=== PATIENT | female | born 1955 | race Caucasian/White ===

== ENCOUNTER 2023-09-11 16:51 | Emergency (ER) | payer MEDICARE, OTHER, SELFPAY ==
[2023-09-11 17:15] VITALS: BP 106/69; PULSE 136; RESP 16; TEMP 37.8; O2SAT 98
--- NOTE | 2023-09-11 18:02 | ED.URI ---
HPI - URI/Sore Throat General Chief Complaint: Upper Respiratory Infection Stated Complaint: headaches,vomiting,nasal congestion Time Seen by Provider: 09/11/23 18:02 Source: patient Mode of arrival: ambulatory Limitations: no limitations History of Present Illness HPI Narrative: 68-year-old female With history of stomach cancer presents with complaint of cough, nasal congestion, fatigue, body aches, headache, fever for 2 days. denies chest pain or shortness breath. Reports vomited once 2 days ago but not since then. All systems reviewed and negative except as noted above. Related Data Home Medications Medication Instructions Recorded Confirmed escitalopram oxalate 10 mg tablet 10 mg PO DAILY 09/11/23 09/11/23 famotidine 20 mg tablet 20 mg PO BID 09/11/23 09/11/23 mirtazapine 30 mg tablet 30 mg PO HS 09/11/23 09/11/23 potassium chloride 20 mEq 20 meq PO BID 09/11/23 09/11/23 tablet,extended release(part/cryst) (Klor-Con M) Allergies Allergy/AdvReac Type Severity Reaction Status Date / Time adhesive tape Allergy Unknown Other Verified 09/11/23 17:31 Review of Systems Review of Systems: CONSTITUTIONAL: Reports fever, chills, or sweats. EYES: Denies visual changes, redness, or discharge. ENT: reports rhinorrhea, congestion, sore throat. Denies otalgia. CARDIOVASCULAR: Denies chest pain, palpitations, or edema. RESPIRATORY: reports cough. Denies dyspnea. GASTROINTESTINAL: Denies abdominal pain, nausea, vomiting, or diarrhea. GENITOURINARY: Denies dysuria or hematuria. SKIN: Denies rash or itching. MUSCULOSKELETAL: Denies back pain, joint pain, or myalgia. NEUROLOGIC: Denies headache, numbness, or weakness. PSYCHIATRIC: Denies anxiety or depression. All other systems reviewed are negative, except as documented in HPI. [facility] Family History Family History (Updated 04/10/16 @ 23:19 by DOCTOR UNKNOWN) Mother Family history of malignant neoplasm of breast in first degree relative Father Family history of lung disease Social History Social History Alcohol intake: current Comments At time of signature, agree with nursing past medical, surgical, social and family history. There is no relevant family history pertinent to the presenting complaint. Exam Narrative: GENERAL: This is a well-nourished, well-developed patient, patient ill-appearing but in no acute distress. HEAD: normocephalic, atraumatic. EYES: PERRL. Sclera clear/white. Vision is grossly intact. EARS: External ears normal, auditory canals clear and without drainage, TMs normal without perforation. Hearing grossly intact. NOSE: External nose normal with Clear nasal drainage. THROAT: Mucous membranes moist, posterior pharynx clear. NECK: Neck supple, non-tender without lymphadenopathy, masses or thyromegaly. CARDIOVASCULAR: Regular rate and rhythm without murmurs, gallops, or rubs. RESPIRATORY: Clear to auscultation. Breath sounds equal bilaterally. No wheezes, rales, or rhonchi. SKIN: warm, Dry, intact with no suspicious lesions or rash, good texture and turgor. NEURO: awake, alert, and oriented to person, place and time. There were no obvious focal neurologic abnormalities. EXTREMITIES: No joint tenderness, effusion, or edema noted. Course Course Level of Care: Express Care Visit Vital Signs Vital signs: Vital Signs Temperature 37.8 C H 09/11/23 17:15 Pulse Rate 136 H 09/11/23 17:15 Respiratory Rate 16 09/11/23 17:15 Blood Pressure 106/69 09/11/23 17:15 Pulse Oximetry 98 09/11/23 17:15 Oxygen Delivery Room Air 09/11/23 17:15 Temperature 37.8 C H 09/11/23 17:15 Pulse Rate 136 H 09/11/23 17:15 Respiratory Rate 16 09/11/23 17:15 Blood Pressure 106/69 09/11/23 17:15 Pulse Oximetry 98 09/11/23 17:15 Oxygen Delivery Room Air 09/11/23 17:15 Reviewed, HR 92 auscultated MDM - URI/Sore Throat MDM Narrative Medical decision making narrative: At time of signature,
== END 2023-09-11 18:22 | disposition home or self-care (01) ==
PROVIDERS: Emergency Provider Nurse Practitioner Family
DX: U07.1 COVID-19 (principal); F41.9 Anxiety disorder, unspecified; F32.A Depression, unspecified; Z85.43 Personal history of malignant neoplasm of ovary; Z85.028 Personal history of other malignant neoplasm of stomach; Z92.21 Personal history of antineoplastic chemotherapy
CPT/HCPCS: 87426; 87804; 99213; C9803; G0463

== ENCOUNTER 2024-07-19 16:43 | Emergency (ER) | payer MEDICARE, OTHER, SELFPAY ==
[2024-07-19] VITALS (10 sets, daily range): BP systolic 99–117; BP diastolic 55–68; PULSE 92–117; RESP 12–19; TEMP 36.8; O2SAT 93–100
--- NOTE | ~2024-07-19 | CT_ITS ---
EXAMINATION: CTA chest PE protocol DATE: 07/19/2024 18:00 SIGNAL TESTER INDICATION: Elevated d-dimer and shortness of breath TECHNIQUE: Computed tomographic angiography (CTA) of the chest was performed with 100 mL Omnipaque-35 0 intravenous contrast. The dose-length product was 438.27 mGy-cm. Maximum intensity projection 3D-re constructions of the aorta and other arteries were constructed by the technologist on a separate work station. COMPARISON: None. FINDINGS: No filling defects are in the main or proximal pulmonary arteries. The main pulmonary artery is not enlarged. The heart is enlarged, without pericardial effusion. Bibasilar pleural thickening. A pleural-based solid nodule is identified within the right upper lobe measuring 4 mm (axial series, image 22). Within the anterior segment of the left upper lobe is a 6.9 mm solid nodule (axial series, image 60). A smaller solid pleural-based nodule is identified within the left apex measuring 3.8 mm (axial serie s, image 18). The remainder of the lungs are clear. Homogeneous attenuation within the liver. Prostheses within the right breast, consistent with patient's history. No significant degenerative disease within the thoracic spine. No lytic or blastic lesions identified. Right internal jugular central venous port catheter identified with tip superior vena cava IMPRESSION: No pulmonary embolus. No aortic dissection. Multiple pulmonary nodules, for which follow-up as per Fleischner guidelines is recommended. Given the size of the largest nodule, chest CT at 3-6 months. Stable, then follow-up CT at 18-24 nelly hs to confirm stability Reviewed, dictated and finalized at location A. AL TESTER IMPRESSION: No pulmonary embolus. No aortic dissection. Multiple pulmonary nodules, for which follow-up as per Fleischner guidelines is recommended. Given the size of the largest nodule, chest CT at 3-6 months. Stable, then foll ow-up CT at 18-24 months to confirm stability
--- NOTE | 2024-07-19 16:49 | ECG_ITS ---
Test Date: 2024-07-19 16:51:24 Measurements Intervals [place] Rate: 116 P: 56 OR: 184 QRS: 52 QRSD: 88 T: 29 QT: 298 QTc: 415 Interpretive Statements SINUS TACHYCARDIA BORDERLINE T WAVE ABNORMALITY- ANTERIOR LEADS BASELINE ARTIFACT- V4 ABNORMAL ECG No previous ECG available for comparison Electronically Signed On 07-19-2024 18:36:13 AVIATION SAFETY EQUIPMENT TECHNICIAN by Mckay Felder D.O.
--- NOTE | 2024-07-19 17:03 | ED.SOB ---
HPI - SOB/Dyspnea General Chief Complaint: Shortness of Breath/Dyspnea Stated Complaint: cta chest Time Seen by Provider: 07/19/24 16:57 Source: patient Mode of arrival: EMS Limitations: no limitations History of Present Illness HPI Narrative: This is a 69-year-old female that presents to the department to rule out PE. [facility] fracture as well as pelvic fracture. Today at therapy she became hypoxic and tachycardic. She had blood work done which showed an elevated D-dimer, she was sent to the ER for imaging to rule out a PE. Patient denies any chest pain or shortness of breath currently. Related Data Home Medications Medication Instructions Recorded Confirmed famotidine 20 mg tablet 20 mg PO BID 09/11/23 07/18/24 mirtazapine 30 mg tablet 15 mg PO HS 09/11/23 07/18/24 potassium chloride 20 mEq 20 meq PO BID 09/11/23 07/18/24 tablet,extended release(part/cryst) (Klor-Con M) duloxetine 20 mg capsule,delayed 20 mg PO HS 07/16/24 07/18/24 release duloxetine 60 mg capsule,delayed 60 mg PO DAILY 07/16/24 07/18/24 release fluticasone propionate 50 1 spray intranasal DAILY 07/16/24 07/18/24 mcg/actuation nasal spray,suspension gabapentin 600 mg tablet 600 mg PO BID 07/16/24 07/18/24 meloxicam 7.5 mg tablet 7.5 mg PO DAILY 07/16/24 07/18/24 methocarbamol 500 mg tablet 500 mg PO DAILY 07/16/24 07/18/24 olaparib 100 mg tablet (Lynparza) 200 mg PO BID 07/16/24 07/18/24 omeprazole 40 mg capsule,delayed 40 mg PO BID 07/16/24 07/18/24 release ondansetron HCl 8 mg tablet 8 mg PO Q8H PRN nausea/vomiting 07/16/24 07/18/24 Allergies Allergy/AdvReac Type Severity Reaction Status Date / Time adhesive tape Allergy Unknown Other Verified 07/19/24 16:53 celecoxib [From Celebrex] AdvReac Rash Verified 07/19/24 16:53 Review of Systems Review of Systems: CONSTITUTIONAL: Denies fever CARDIOVASCULAR: Denies chest pain, palpitations RESPIRATORY: Denies dyspnea. All systems reviewed & are unremarkable except as noted in HPI and below PMFSH Past Medical History Medical History (Updated 07/19/24 @ 18:42 by Norma Joseph PA-C) Anxiety Breast cancer Chronic anemia Depression GERD (gastroesophageal reflux disease) Irritable bowel syndrome Osteoporosis Ovarian cancer Approximately 2020 with recurrence in 2021 Peripheral neuropathy due to chemotherapy Surgical History Surgical History (Updated 07/17/24 @ 00:49 by Eva Pillai DO) History of left knee replacement (2022) History of right mastectomy History of total abdominal hysterectomy and bilateral salpingo-oophorectomy Hx of cholecystectomy Family History Family History Mother Family history of malignant neoplasm of breast in first degree relative Father Family history of lung disease Daughter Breast cancer Social History Social History (Updated 07/17/24 @ 00:51 by Eva Pillai DO) Social History: She lives with her of 32 years. 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 She has 2 daughters and a son. Her youngest daughter was just diagnosed with breast cancer. She used to smoke up to a pack of cigarettes per day but then would not smoke for up to a week after that. She did this for proximally 30 years but quit smoking in the . She denies any history of heavy alcohol use or illicit substance use. She ambulates with a Rollator. Code status: Full code Surrogate decision maker: Years smoked: 20 Smoking status: Former smoker Alcohol intake: former Substance use: never Substance use type: does not use Do You Feel Safe in your Home?: Yes Lack of Transportation: No Lack of Food: Never True Current Housing: I Have Housing Concerned About Future Housing: No Difficulty Paying Gas/Electric Bills: No Difficulty Paying for Meds: No Currently Unemployed: No Education: High School Diploma/GED Difficulty w/ Childcare or Family Care: No Spiritual care concerns: No Exam Narrative: GENERAL: Well-appearing, well-nourished, and in no acute distress. HEAD: Normocephalic, atraumatic. EYES: EOMI. ENT: Nares clear, no rhinorrhea or epistaxis. Mucous membranes moist. Oropharynx without tonsillar hypertrophy exudate or other lesions. NECK: Supple. No JVD CHEST: Clear to auscultation. No respiratory distress. No wheezes rales or rhonchi HEART: Regular rate and rhythm. No murmur heard. Normal peripheral pulses. EXTREMITIES: No edema. SKIN: Warm, dry, no rash. NEURO: No focal deficits. Alert and oriented x3. PSYCH: Normal mood and affect Course Course Emergency Course: patient and family updated on workup and agree with plan of care Vital Signs Vital signs: Vital Signs Temperature 98.3 F 07/19/24 16:43 Pulse Rate 117 H 07/19/24 16:43 Respiratory Rate 14 07/19/24 16:43 Blood Pressure 99/68 L 07/19/24 16:43 Pulse Oximetry 100 07/19/24 16:43 Oxygen Delivery Nasal Cannula 07/19/24 16:43 Oxygen Flow Rate 2 07/19/24 16:43 Temperature 98.3 F 07/19/24 16:43 Pulse Rate 93 07/19/24 17:30 Respiratory Rate 13 07/19/24 17:30 Blood Pressure 117/67 07/19/24 17:30 Pulse Oximetry 95 07/19/24 17:45 Oxygen Delivery Nasal Cannula 07/19/24 17:45 Oxygen Flow Rate 1 07/19/24 17:45 MDM - SOB/Dyspnea MDM Narrative Medical decision making narrative: Patient presents to the emergency department for an episode of hypoxia today at [facility] during her rehab session. Had blood work there, this showed an elevated D-dimer. She was sent to the ER for a CTA of her chest. She was reporting some lightheadedness, no chest pain or shortness of breath. Patient has been weaned off of her oxygen. Is currently saturating normal on room air. Tachycardic upon arrival, given 500 mL of IV fluids with normalization of heart rate. Blood work reviewed and appeared stable. CTA of the chest without PE or acute cardiopulmonary abnormality. Does show several pulmonary nodules. Patient and family were updated on her workup. Her does report she has not really been out of bed over the last week, wondering if this could be some general deconditioning. Spoke with rehab Dr. Spain about patient and workup. Patient may return to rehab facility. Patient and family agree with this plan Differential Diagnosis Differential diagnosis: Likely congestive heart failure, community acquired pneumonia and pulmonary embolism Lab Data Attestation: I reviewed the patient's lab results. 07/19/24 17:15 Labs: Lab Results 07/19/24 Range/Units 17:15 Creatinine 1.30 H (0.7-1.2) mg/dL Estim Creat Clear Calc Not Reportable Estimated GFR 41 L (59 - ) Imaging Data Radiologist's impression: ITS Impressions Chest CTA 07/19/24 18:00 IMPRESSION: No pulmonary embolus. No aortic dissection. Multiple pulmonary nodules, for which follow-up as per Fleischner guidelines is recommended. Given the size of the largest nodule, chest CT at 3-6 months. Stable, then follow-up CT at 18-24 months to confirm stability ECG Data EKG #1: ECG completion date: 07/19/24 EKG Interpretation: tachycardia, sinus rhythm, no ST changes and normal QT Critical Care Time Critical Care Time Critical Care Time: No Discharge Plan Discharge Clinical Impression: Hypoxia, Pulmonary nodule Patient Disposition: [facility] Condition: Improved Instructions: Pulmonary Nodules (ED), Hypoxia (ED) Additional Instructions: Return to the emergency department if you experience fever, chest pain, shortness of breath, abdominal pain with nausea and vomiting, weakness, numbness, or any other symptoms that are concerning to you Your workup here was reassuring, so blood clots in your lungs. You do have some pulmonary nodules which will need further imaging surveillance in the next 3-6 months Prescriptions: No Action potassium chloride [Klor-Con M20] 20 mEq tablet,ER particles/crystals 20 meq PO BID famotidine 20 mg tablet 20 mg PO BID mirtazapine 30 mg tablet 15 mg PO HS gabapentin 600 mg tablet 600 mg PO BID ondansetron HCl 8 mg tablet 8 mg PO Q8H PRN (Reason: nausea/vomiting) omeprazole 40 mg capsule,delayed release(DR/EC) 40 mg PO BID meloxicam 7.5 mg tablet 7.5 mg PO DAILY Lynparza 100 mg Tablet 200 mg PO BID methocarbamol 500 mg tablet 500 mg PO DAILY fluticasone propionate 50 mcg/actuation spray,suspension 1 spray INTRANASAL DAILY duloxetine 20 mg capsule,delayed release(DR/EC) 20 mg PO HS duloxetine 60 mg capsule,delayed release(DR/EC) 60 mg PO DAILY oxycodone 5 mg capsule 0.5 mg PO Q4H PRN (Reason: pain) Qty: 1 0RF Follow-up/Referrals: PHYSICIAN NOT ON STAFF,NONSTAFF [Non-Staff] -
[2024-07-19 17:16] LABS: Estimated Glomerular Filt Rate 41
[2024-07-19] MEDS: SODIUM CHLORIDE 0.9% IV 500 ML 999 ML IV CONT (17:35)
--- NOTE | 2024-07-19 20:46 | PC.NURSE ---
called report to Honey at [facility], all questions answered. [facility] ems arrives at 2030 for patient and they leave ED @2041.
== END 2024-07-19 20:42 ==
PROVIDERS: Emergency Provider Physician Assistant
DX: R09.02 Hypoxemia (principal); R91.8 Other nonspecific abnormal finding of lung field; D64.9 Anemia, unspecified; K21.9 Gastro-esophageal reflux disease without esophagitis; K58.9 Irritable bowel syndrome, unspecified; M81.0 Age-related osteoporosis without current pathological fracture; F32.A Depression, unspecified; F41.9 Anxiety disorder, unspecified; Z96.652 Presence of left artificial knee joint; Z85.43 Personal history of malignant neoplasm of ovary; Z85.3 Personal history of malignant neoplasm of breast; Z87.891 Personal history of nicotine dependence; Z90.11 Acquired absence of right breast and nipple; Z90.710 Acquired absence of both cervix and uterus; Z90.79 Acquired absence of other genital organ(s); Z90.722 Acquired absence of ovaries, bilateral; Z79.899 Other long term (current) drug therapy
CPT/HCPCS: 71275; 93005; 96360; 99284; J7040; Q9967

== ENCOUNTER 2025-02-11 16:13 | Inpatient (IN) | payer MEDICARE, OTHER, SELFPAY ==
--- NOTE | ~2025-02-11 | US_ITS ---
EXAMINATION: US renal BI DATE: 02/12/2025 09:58 INDICATION: Acute renal insufficiency with ureteral stent. TECHNIQUE: Multiple ultrasound grayscale images of the kidneys were obtained. COMPARISON: CT dated 02/11/2025 FINDINGS: The right kidney measures 10.3 x 5.0 x 5.5 cm. The left kidney measures 8.3 x 5.0 x 4.4 cm. The kidne ys demonstrate normal echogenicity. There is moderate right hydronephrosis. The loop of the right int ernal ureteral stent can be seen in the right renal pelvis with the distal loop seen within the lazaro l bladder. There is no hydronephrosis in the left kidney. No stones identified. IMPRESSION: 1. Moderate right hydronephrosis with right internal ureteral stent in expected position. Reviewed, dictated and finalized at location A. IMPRESSION: 1. Moderate right hydronephrosis with right internal ureteral stent in expecte d position.
--- NOTE | ~2025-02-11 | CT_ITS ---
EXAMINATION: CT abdomen pelvis w con DATE: 02/11/2025 19:00 INDICATION: n/v; abd pain TECHNIQUE: Computed tomography (CT) of the abdomen and pelvis was performed with 100 mL Omnipaque-350 intravenous contrast. Automated exposure control and iterative reconstruction technique were employe d. The dose-length product was 232.09 mGy-cm. COMPARISON: CT pelvis 07/16/2024; CTPA 07/19/2024. FINDINGS: Lower thorax: Partially visualized right breast implant. Liver: Normal. Biliary/Gallbladder: Gallbladder is absent. No bile duct dilation. Pancreas: No mass or duct dilation. Spleen: Normal. Adrenals:No mass. Kidneys: Right ureteral stent, in good position. Moderate right caliectasis and pelviectasis. Normal left kidney. GI tract: Small hiatal hernia. No large bowel dilation. Scattered loops of mildly dilated small bowel throughout the abdomen, no transition point, probably representing ileus. Short segment dilated loop of small bowel in the deep pelvis, with loss of the fat plane and potential connection to the adjace nt distal right ureter, and strand-like connections to the vaginal cuff and urinary bladder. Cecal an d rectal anastomoses. Appendix not confidently visualized. Mesentery/Peritoneum: No ascites or free air. 2.1 x 1.2 cm mesenteric lesion adjacent to the distal S MA and inferior mesenteric vein, may represent a soft tissue lesion with a low-density center. Retroperitoneum: No mass. Pelvis: The bladder is moderately distended, with minimal wall thickening. The distal end of the uret eral stent is in good position. Absent uterus. Soft Tissues: Soft tissues and body wall unremarkable. Bones: No acute osseous finding. IMPRESSION: Moderate right pelviectasis and caliectasis, despite the presence of a ureteral stent, may represent chronic dilation or stent dysfunction with acute hydronephrosis. Potential enteroureteral, enterovesicular, and/or enterovesicular fistulae. Presumed necrotic mesenteric lymph node in the right lower quadrant. Generalized mild dilation of the small bowel, presumably due to ileus. Early/partial obstruction not excluded. Reviewed, dictated and finalized at location K. IMPRESSION: Moderate right pelviectasis and caliectasis, despite the presence of a ureteral stent, may represent chronic dilation or stent dysfunction with acute hydronep hrosis. Potential enteroureteral, enterovesicular, and/or enterovesicular fistulae. Presumed necrotic mesenteric lymph node in the right lower quadrant. Generalized mild dilation of the small bowel, presumably due to ileus. Early/pa rtial obstruction not excluded.
[2025-02-11 16:17] VITALS: BP 110/72; PULSE 112; RESP 16; TEMP 36.8; O2SAT 97
[2025-02-11 18:11] LABS: Basophils Percent Auto 0.1 % (0.2-1.2); Hematocrit 24.3 % (37.0-47.0); Hemoglobin 8.3 g/dL (12.0-15.0); Immature Granulocyte Absolute 0.12 K/mm3 (0.00-0.031); Immature Granulocyte Percent A 0.8 % (0-0.5); Lymphocytes Absolute Auto 0.38 K/mm3 (0.9-3.2); Lymphocytes Percent Auto 2.6 % (18.3-44.2); Mean Corpuscular HGB Conc 34.2 g/dl (32-36); Mean Corpuscular Hemoglobin 36.4 pg (26-34); Mean Corpuscular Volume 106.6 fl (80-100); Mean Platelet Volume 10.8 fl (7.4-10.4); Monocytes Absolute Auto 1.1 K/mm3 (0.1-0.6); Monocytes Percent Auto 7.4 % (2.6-8.5); Neutrophils Absolute Auto 12.8 K/mm3 (1.3-6.7); Neutrophils Percent Auto 89.1 % (45.5-73.1); Platelet Count Result 220 k/mm3 (150-375); Red Blood Count 2.28 M/mm3 (4.2-5.4); Red Cell Distribution Width 21.4 % (11.5-14.5); White Blood Count 14.4 K/mm3 (4.5-10.0)
--- OUTSIDE RECORDS SUMMARY | 2025-02-11 18:15 | XMS_ITS | Encounter Summary ---
Author Organization [facility] Address [address] [place] [address] Care Team Providers Care Auto Wheel Alignment Specialist Name Role Phone Unavailable Primary Care Provider Unavailabl e Reason for Visit * Diagnostic Imaging (Routine) - Closed Specialty Diagnoses / Procedures Referred By Chasity t Referred To Contact Procedures Breast Imaging Screening Outside Reference Patricia Powell NP Phone: tel: fax: Referral ID Status Reason Start Date Expiration Date Visits Re quested Visits Authorized [id number] Closed 02/02/2022 03/04/2023 1 1 Encounter Details Date Type Department Care Team (Late st Contact Info) Description 04/01/2015 Hospital Encounter [facility] [address] [place] [id number] Social History Tobacco Use Types Packs/Day Years Used Date Smoking Tobacco: Former Cigarettes Q uit: 1991 Smokeless Tobacco: Never Alcohol Use Standard Drinks/Week Comments Not Currently 0 (1 standard drink = 0.6 oz pur e alcohol) rarely AUDIT-C Answer Date Recorded Q1: How often do you have a drink containing alcohol? Never 01/06/2025 Q2: How many drinks containi ng alcohol do you have on a typical day when you are drinking? Patient does not drink Q3: How often do you have si x or more drinks on one occasion? Never 01/06/2025 PHQ-2 Answer Date Recorded Patient Health Questionnaire-2 Score 1 01/08/2025 Hunger Vital Sign Answer Date Recorded Within the past 12 months, y ou worried that your food would run out before you got the money to buy more. Never true 02/07/20 21 Within the past 12 months, t he food you bought just didn't last and you didn't have money to get more. Never true 02/06/2021 PRAPARE - Transportation Answer Date Re corded In the past 12 months, has l ack of transportation kept you from medical appointments or from getting medications? No 01/12 In the past 12 months, has l ack of transportation kept you from meetings, work, or from getting things needed for daily living? No 02/06/2021 PHQ-9 Answer Date Recorded Patient Health Questionnaire-9 Score 12 01/08/2025 Personal Safety Answer Date Recorded Have you ever been in or are you currently in a harmful physical or emotional relationship or is someone making you feel afraid or unsafe? Denies 01/06/2025 Education Answer Date Recorded What is the highest level of school you have completed or the highest degree you have received? 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 Never 01/06/2025 11:41 AM Som Powell RN Q2: How many drinks containing alcohol do you have on a typical day when you are drinking? Patient does not drink 01/06/2025 11:41 AM Som Powell RN Q3: How often do you have six or more drinks on one occasion? Never 01/06/2025 11:41 AM Som Powell RN * Over the past 2 weeks, how often have you been bothered by any of the following problems? Question Answer Date of Assessment Author Patient Health Questionnaire-2 Score 1 12/13 12:00 PM Tete Elliott RN * If you checked off any problems on this questionnaire so far, Question Answer Date of Assessment Author How difficult have these problems made it for you to do your work, take care of things at home, or get along with other people? Somewhat difficult 01/08/2025 12:00 PM Tete Elliott RN * Over the past 2 weeks, how often have you been bothered by any of the following problems? Question Answer Date of Assessment Author Little interest or pleasure in doing things Not at all 01/08/2025 12:00 PM Tete Elliott RN Feeling down, depressed, or hopeless Several days 01/08/2025 12:00 PM Tete Elliott RN Trouble falling or staying asleep, or sleeping too much More than half the days 01/08/2025 12:00 PM Tete Elliott RN Feeling tired or having little energy Nearly every day 01/08/2025 12:00 PM Tete Elliott RN Poor appetite or overeating Nearly every day 01/08/2025 12:00 PM Tete Elliott RN Feeling bad about yourself - or that you are a failure or have let yourself or your family down Several days 01/08/2025 12:00 PM Tete Elliott RN Trouble concentrating on things, such as reading the newspaper or watching television Not at all 01/08/2025 12:00 PM Tete Elliott RN Moving or speaking so slowly that other people could have noticed? Or the opposite - being so fidgety or restless that you have been moving around a lot more than usual. More than half the days 01/08/2025 12:00 PM Tete Elliott RN Thoughts that you would be better off or hurting yourself in some way Not at all 01/08/2025 12:00 PM Tete Elliott RN Patient Health Questionnaire-9 Score 12 01/08/2025 12:00 PM CDT Tete Chinchilla RN documented as of this encounter Plan of [...] only and have not been reviewed by [facility] Radiology. There will be no report generated by a [facility] Radiologist. Narrative [facility]_M[facility]MO[facility] - 02/02/2022 3:04 PM CDT EXAMINATION: Images For Reference Purposes Only us Patricia Powell TELEPHONE EXCHANGE OPERATOR IMG MAMMO PROCEDURES Fin al Result [facility] documented in this encounter Visit Diagnoses Not on filedocumented in this encounter Additional Health Concerns Infection Onset Date Last Indicated Resolved Time COVID: Suspected 11/13/2021 11/13/2021 11/13/2021 2:41 PM INSURANCE RISK SURVEYOR documented as of this encounter
--- OUTSIDE RECORDS SUMMARY | 2025-02-11 18:15 | XMS_ITS | Encounter Summary ---
Author Organization [facility] Healthcare Address [address] [place] [address] Care Team Providers Care Turkish Rubber Name Role Phone Unavailable Primary Care Provider Unavailabl e Reason for Visit * Diagnostic Imaging (Routine) - Closed Specialty Diagnoses / Procedures Referred By Chasity t Referred To Contact Procedures Breast Imaging Diagnostic Outside Reference Patricia Powell NP Phone: tel: fax: Referral ID Status Reason Start Date Expiration Date Visits Re quested Visits Authorized [id number] Closed 02/02/2022 03/04/2023 1 1 Encounter Details Date Type Department Care Team (Late st Contact Info) Description 11/11/2016 12:05 AM SEAM RUBBER Hospital Encounter [facility] Radiology [facility] [address] [place] [id number] Social History Tobacco Use Types Packs/Day Years [...] on file Legal Sex Female 4:24 AM SEAM RUBBER Gender Identity Not on file Sexual Orientation Not on file 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 Radiology. There will be no report generated by a [facility] Radiologist. Narrative RAD_MAMMO[facility] - 02/02/2022 3:05 PM CDT EXAMINATION: Images For Reference Purposes Only us Patricia Powell MANUFACTURING RECRUITER IMG MAMMO PROCEDURES Fin al Result [facility] documented in this encounter Visit Diagnoses Not on filedocumented in this encounter Additional Health Concerns Infection Onset Date Last Indicated Resolved Time COVID: Suspected 11/13/2021 11/13/2021 11/13/2021 2:41 PM SEAM RUBBER documented as of this encounter
--- OUTSIDE RECORDS SUMMARY | 2025-02-11 18:15 | XMS_ITS | Encounter Summary ---
Author Organization [facility] Healthcare Address [address] [place] [address] Care Team Providers Care Traffic Line Painter Name Role Phone Mike Douglass MD Primary Care Provider [phone] Reason for Visit * Diagnostic Imaging (Routine) - Closed Specialty Diagnoses / Procedures Referred By Chasity vanegas Referred To Contact Procedures Breast Imaging Screening Outside Reference Patricia Powell NP Phone: tel: fax: Referral ID Status Reason Start Date Expiration Date Visits Re quested Visits Authorized [id number] Closed 02/02/2022 03/04/2023 1 1 Encounter Details Date Type Department Care Team (Late st Contact Info) Description 12/28/2018 Hospital Encounter [facility] Radiology [facility] [address] [place] [id number] Social History Tobacco Use Types Packs/Day [...] on file Legal Sex Female 4:24 AM RIVERBOAT CAPTAIN Gender Identity Not on file Sexual Orientation Not on file 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 There will be no report generated by a [facility] Radiologist. Narrative [facility] - 02/02/2022 3:04 PM CDT EXAMINATION: Images For Reference Purposes Only us Patricia Powell EARLY CHILDHOOD SERVICES COORDINATOR IMG MAMMO PROCEDURES Fin al Result [facility] documented in this encounter Visit Diagnoses Not on filedocumented in this encounter Additional Health Concerns Infection Onset Date Last Indicated Resolved Time COVID: Suspected 11/13/2021 11/13/2021 11/13/2021 2:41 PM RIVERBOAT CAPTAIN documented as of this encounter Care Teams Traffic Line Painter Relationship Specialty Start Date End Date Mike Douglass MD [address] [place] [address] PCP - General Family Medicine 03/21/18 07/02/19 documented as of this encounter
--- OUTSIDE RECORDS SUMMARY | 2025-02-11 18:15 | XMS_ITS | Encounter Summary ---
Author Organization [facility] Healthcare Address [address] [place] [address] Care Team Providers Care Silk Folder Name Role Phone Unavailable Primary Care Provider Unavailabl e Reason for Visit * Diagnostic Imaging (Routine) - Closed Specialty Diagnoses / Procedures Referred By Contsmiley t Referred To Contact Procedures Breast Imaging US Outside Reference Patricia oPwell NP Phone: tel: fax: Referral ID Status Reason Start Date Expiration Date Visits Re quested Visits Authorized [id number] Closed 02/02/2022 03/04/2023 1 1 Encounter Details Date Type Department Care Team (Late st Contact Info) Description 11/11/2016 Hospital Encounter [facility] Radiology [facility] [address] [place] [phone] Social History Tobacco Use Types Packs/Day Years [...] on file Legal Sex Female 4:24 AM DECORATOR HAND Gender Identity Not on file Sexual Orientation [...] US OUTSIDE REFERENCE Routine 11/11/2016 12:00 AM DECORATOR HAND documented in this encounter Results * Breast Imaging US Outside Reference (11/11/2016 12:00 AM DECORATOR HAND) Impressions [facility] - 02/02/2022 3:03 PM CDT These images are for Reference purposes only and have not been reviewed by [facility] Radiology. There will be no report generated by a [facility] Radiologist. Narrative [facility]MO[facility] - 02/02/2022 3:03 PM CDT EXAMINATION: Images For Reference Purposes Only us Patricia Powell REPRESENTATIVE PHLEBOTOMY SERVICES IMG MAMMO PROCEDURES Fin al Result [facility] documented in this encounter Visit Diagnoses Not on filedocumented in this encounter Additional Health Concerns Infection Onset Date Last Indicated Resolved Time COVID: Suspected 11/13/2021 11/13/2021 11/13/2021 2:41 PM DECORATOR HAND documented as of this encounter
--- OUTSIDE RECORDS SUMMARY | 2025-02-11 18:15 | XMS_ITS | Encounter Summary ---
Author Organization [facility] Healthcare Address [address] [place] [address] Care Team Providers Care Airplane Dispatcher Name Role Phone Unavailable Primary Care Provider Unavailabl e Reason for Visit * Diagnostic Imaging (Routine) - Closed Specialty Diagnoses / Procedures Referred By Chasity t Referred To Contact Procedures Breast Imaging Screening Outside Reference Patricia Powell NP Phone: tel: fax: Referral ID Status Reason Start Date Expiration Date Visits Re quested Visits Authorized [id number] Closed 02/02/2022 03/04/2023 1 1 Encounter Details Date Type Department Care Team (Late st Contact Info) Description 11/05/2016 Hospital Encounter [facility] Radiology [facility] [address] [place] [phone] Social History Tobacco Use Types Packs/Day Years [...] file Legal Sex Female 4:24 AM INSURANCE CASE MANAGER Gender Identity Not on file Sexual Orientation Not on file 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 Not on file Not on file documented as of this encounter Functional Status * Audit-C Score Answer Date of Assessment Author 0 01/06/2025 11:41 AM Smo Powell RN * Question Answer Date of [...] Not at all 01/08/2025 12:00 PM CDT Bizub, Tete, RN Patient Health Questionnaire-9 Score 12 01/08/2025 12:00 PM CDT Tete Chinchilla RN documented as of this encounter Plan of Treatment Not on file documented as of this encounter Procedures Procedure Name Priority Date/Time Associated Diagnosis Comments BREAST IMAGING MG SCREENING OUTSIDE REFERENCE Routine 11/05/2016 12:00 AM INSURANCE CASE MANAGER documented in this encounter Results * Breast Imaging Screening Outside Reference (11/05/2016 12:00 AM INSURANCE CASE MANAGER) Impressions [facility] - 02/02/2022 3:04 PM CDT These images are for Reference purposes only and have not been reviewed by [facility] Radiology. There will be no report generated by a [facility] Radiologist. Narrative [facility] - 02/02/2022 3:04 PM CDT EXAMINATION: Images For Reference Purposes Only us Patricia Powell AUTOMATIC PRINT DEVELOPER IMG MAMMO PROCEDURES Fin al Result [facility] documented in this encounter Visit Diagnoses Not on filedocumented in this encounter Additional Health Concerns Infection Onset Date Last Indicated Resolved Time COVID: Suspected 11/13/2021 11/13/2021 11/13/2021 2:41 PM INSURANCE CASE MANAGER documented as of this encounter
--- OUTSIDE RECORDS SUMMARY | 2025-02-11 18:16 | XMS_ITS | Encounter Summary ---
Author Organization [facility] Healthcare Address [address] [place] [address] Care Team Providers Care Forensic Locksmith Name Role Phone Laurita German Primary Care Provider [phone] Unknown, Notinfile Unavailable Unavailable Suhail Marie MD Unavailable [phone] Robin Pimentel MD Unavailable [phone] Tsering Hoff Primary Care Provider [phone] Ceci Garcia PROFESSIONAL WRESTLER Primary Care Provide r Encounter Details Date Type Department Care Team (Late st Contact Info) Description 06/10/2020 Telephone [facility] Radiology [address] [address] Joselin Garza RN Social History Tobacco Use Types Packs/Day Years Used Date Smoking Tobacco: Former Cigarettes Q uit: 1991 Smokeless Tobacco: Never Alcohol Use Standard Drinks/Week Comments Not Currently 0 (1 standard drink = 0.6 oz pur e alcohol) rarely Education Answer Date Recorded What is the highest level of school you have completed or the highest degree you have received? 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 Not on file Not on file documented as of this encounter Plan of Treatment Not on file documented as of this encounter Visit Diagnoses Not on filedocumented in this encounter Additional Health Concerns Infection Onset Date Last Indicated Resolved Time COVID: Suspected 11/13/2021 11/13/2021 11/13/2021 2:41 PM SUPERVISOR SHEARING documented as of this encounter Care Teams Forensic Locksmith Relationship Specialty Start Date End Date Laurita German PA PCP - General 04/18/20 04/19/24 [place] [address] [id number] PCP - General Physician Slip Maker 04/20/24 01/04/25 [place] [address] [employer] [address] [id number] PCP - General Nurse Practitioner 01/05/25 Unknown, Notinfile Referring Physician 10/17/20 07/27/23 Suhail Marie MD [address] [place] [address] Internal Medicine 07/28/23 Robin Pimentel MD [address] [place] [address] Internal Medicine 07/28/23 documented as of this encounter
--- OUTSIDE RECORDS SUMMARY | 2025-02-11 18:16 | XMS_ITS | Encounter Summary ---
Author Organization [facility] Address [address] [place] [address] Phone Care Team Providers Care Bench Chemist Name Role Phone Laurita German PAC Primary Care Provider [phone] Encounter Details Date Type Department Care Team (Late st Contact Info) Description 04/17/2020 Telephone [facility] [address] [place] [address] Anthony Jacobson MD [address] [place] [phone] Social History Tobacco Use Types Packs/Day Years Used Date Smoking Tobacco: Never Assessed Comments Unknown Sex and Gender Information Value Date Recorded Sex Assigned at Not on file Legal Sex Female 8:17 AM CDT Gender Identity Not on file Sexual Orientation Not on file documented as of this encounter Miscellaneous Notes * Telephone Encounter - Elisabeth Mccarthy - 04/17/2020 3:41 PM CDT Patient had no showed her appointment and when I called she thought her appointment was cancelled because she is seeing another doctor at [facility]. documented in this encounter Plan of Treatment Not on file documented as of this encounter Visit Diagnoses Not on filedocumented in this encounter Care Teams Bench Chemist Relationship Specialty Start Date End Date Laurita German, PAC PCP - General Physician Groundhand 04/03/20 documented as of this encounter
--- OUTSIDE RECORDS SUMMARY | 2025-02-11 18:16 | XMS_ITS | Referral Summary ---
Author Organization [facility] Address [address] [place] [address] Care Team Providers Care Flight Engineer Instructor Name Role Phone Suhail Marie MD Unavailable [phone] Robin Pimentel MD Unavailable [phone] Ceci Garcia NP Primary Care Provide r Encounters Date Type Department Care Team Description 02/08/2025 7:20 PM CDT Lab [facility] ([facility] [address] [place] [address] Cancer of peritoneum (HCC); Malignant neoplasm of ovary, unspecified laterality (HCC) 02/08/2025 Orders Only [facility] Obstetrics and Gynecology [address] [facility] 13th [place] [address] Wendy Pelaez, DEMARCO Cancer of peritoneum (HCC) (Primary Dx) 02/08/2025 Orders Only [facility] Obstetrics and Gynecology [address] [facility] 13th [place] [address] Wendy Pelaez, DEMARCO Cancer of peritoneum (HCC) (Primary Dx) 02/08/2025 Orders Only [facility] [address] [place] [address] Zenaida Krueger RN 02/08/2025 Orders Only [facility] Obstetrics and Gynecology [address] [facility] 13th [place] [phone] Wendy Pelaez RN Cancer of peritoneum (HCC) (Primary Dx); BRCA1 positive; Abnormal CT scan 02/08/2025 Orders Only [facility] Gynecologic [facility] [address] [place] [address] Zenaida Krueger RN 02/08/2025 3:15 PM CDT Office Visit [facility] Obstetrics and Gynecology [address] [place] [address] Advanced [facility] 13th [place] [address] Belem Menchaca MD Cancer of peritoneum (HCC) 02/02/2025 5:40 PM CDT Lab [facility] [address] [place] [phone] Peritoneal carcinoma (HCC) 01/16/2025 Telephone [facility] [address] [place] [address] 01/09/2025 Orders Only [facility] Obstetrics and Gynecology [address] [place] [address] Advanced Medicine 13th [place] [address] Wendy Pelaez RN Peritoneal carcinoma (HCC) (Primary Dx) 01/08/2025 12:43 PM CDT - 01/08/2025 11:59 PM CDT Hospital Encounter [facility] [address] [place] [address] Exposure to blood-borne pathogen Discharge Disposition: Discharge to home or self care 01/08/2025 Orders Only [facility] Health [address] [place] [address] Room 3420 (Third Floor) [place] [address] Cipriano Giron MD 01/08/2025 Orders Only [facility] [address] [place] [address] Room 3420 (Third Floor) [place] [address] Cipriano Giron MD Exposure to blood-borne pathogen (Primary Dx) 01/05/2025 4:42 PM CDT - 01/08/2025 12:30 PM CDT Hospital Encounter [address] [address] Anthony Clay MD Mendelsohn, Marc, MD McCourt, Carolyn Kay, MD Peritoneal carcinoma (HCC) (Primary Dx); Bilious vomiting with nausea; Hydronephrosis of right kidney; Cancer of peritoneum (HCC) Discharge Disposition: Discharge to home or self care 01/06/2025 1:11 PM CDT Anesthesia Event [facility] Operating Room [address] [place] [phone] Coy Cespedes MD 01/06/2025 1:55 PM CDT - 01/06/2025 3:05 PM CDT Surgery [facility] Operating Room [address] [place] [address] Breanna Ac MD CYSTOSCOPY RETROGRADE PYELOGRAM - INSERTION URETERAL STENT 01/05/2025 Telephone [facility] [address] [place] [address] Jeanie Schmitt, MICKEY 01/01/2025 4:45 PM CDT Lab [facility] ([facility]) [address] [place] [id number] Cancer of peritoneum (HCC); Malignant neoplasm of ovary, unspecified laterality (HCC) 01/01/2025 Orders Only [facility] Obstetrics and Gynecology [address] [facility] Advanced [facility] 13th [place] [address] Wendy Pelaez RN Cancer of peritoneum (HCC) 12/05/2024 12:20 PM CDT Lab [facility] [address] [place] [phone] Cancer of peritoneum (HCC); Malignant neoplasm of ovary, unspecified laterality (HCC) 11/30/2024 Telephone [facility] [address] [place] [phone] from Last 3 Months Allergies Active Allergy Reactions Criticality Noted Date Comments Adhesive Rash Medium 05/31/2019 Adhesive Tape-Silicones Rash,Blisters High Medications fluticasone propionate (FLONASE) 50 mcg/actuation nasal spray Administer 1 spray into each nostril as needed for rhinitis 01/30/20 20 Active cyanocobalamin , vitamin B-12, (VITAMIN B-12 ORAL)Indicatio ns:vitamin deficiency Take 6,000 mcg by mouth daily. pt taking 2 3000 Indications: vitamin deficiency 07/25/20 20 Active pyridoxine (VITAMIN B-6) 250 mg tablet Take by mouth Ac tive ferrous sulfate 325 mg (65 mg of elemental iron) tablet Take 1 tablet (325 mg total) by mouth daily with breakfast Active omeprazole (PriLOSEC) 40 mg capsule TAKE 1 CAPSULE TWICE A DAY AFTER BREAKFAST AND DINNER 180 capsule 3 07/23/20 22 Active risedronate (ACTONEL) 35 mg tablet PLEASE SEE ATTACHED FOR DETAILED DIRECTIONS 11/18/19 23 Active lidocaine-pril ocaine creamIndicatio ns:Cancer of peritoneum (HCC) Apply topically as needed for pain Apply 1 hour prior to IV access and cover. 30 g 1 04/07/20 23 Active famotidine (PEPCID) 20 mg tablet Take 1 tablet (20 mg total) by mouth 2 (two) times a day 07/21/20 23 Active triamcinolone (KENALOG) 0.1 % cream Apply topically 2 (two) times a day 07/21/20 23 Active gabapentin (NEURONTIN) 600 mg tablet Take 1 tablet (600 mg total) by mouth 2 (two) times a day 07/21/[address] (NexIUM) 40 mg capsule TAKE 1 CAPSULE BY MOUTH EVERY DAY IN THE MORNING BEFORE BREAKFAST 06/26/20 24 Active meloxicam (MOBIC) 7.5 mg tablet Take 1 tablet (7.5 mg total) by mouth daily 07/18/20 24 Active FLUoxetine (PROzac) 40 mg capsule 08/29/20 24 Active ondansetron (ZOFRAN) 8 mg tabletIndicati ons:Cancer of peritoneum (HCC) TAKE 1 TABLET BY MOUTH EVERY 8 HOURS NEEDED FOR NAUSEA OR VOMITING. 30 tablet 3 11/25/19 25 Active olaparib (Lynparza) 100 mg tabletIndicati ons:Cancer of peritoneum (HCC) Take 2 tablets (200 mg) by mouth 2 (two) times a day. 120 tablet 11 01/02/20 25 Active prochlorperazi ne (Compazine) 10 mg tabletIndicati ons:Cancer of peritoneum (HCC) Take 1 tablet (10 mg total) by mouth every 6 (six) hours as needed for nausea or vomiting 30 tablet 3 01/09/20 25 Active OLANZapine (ZyPREXA) 2.5 mg tablet Take 1 tablet (2.5 mg total) by mouth nightly 30 tablet 3 01/09/20 25 025 Active Klor-Con M20 20 mEq CR tabletIndicati ons:Hypokalemi a TAKE 1 TABLET BY MOUTH 2 TIMES A DAY. 180 tablet 01/30/20 25 Active loratadine (CLARITIN) 10 mg tablet Take 1 tablet (10 mg total) by mouth daily as needed 01/13/20 25 Active nitroglycerin (NITROSTAT) 0.[address] 0.4 mg under the tongue every 5 (five) minutes as needed 05/17/20 19 020 Discontinued(Di scontinued by another clinician) Klor-Con M20 20 mEq CR tabletIndicati ons:Hypokalemi a TAKE 1 TABLET BY MOUTH 2 TIMES A DAY. 180 tablet 11/02/19 25 025 Discontinued cefdinir (OMNICEF) 300 mg capsuleIndicat ions:Urinary Tract/Genitour inary Infection Take 1 capsule (300 mg total) by mouth 2 (two) times a day for 11 doses 11 capsule 01/09/20 25 025 Active Problems Problem Noted Date Diagnosed Date Hydronephrosis of right kidney 01/05/2025 Moderate episode of recurrent major depressive d isorder 09/19/2024 Sick sinus syndrome 09/19/2024 Anxiety disorder, unspecified 08/01/2024 Drug-induced polyneuropathy 08/01/2024 Malignant neoplasm of unspecified ovary 08/01/20 24 S/P total knee replacement, left 12/22/2022 Overview (03/18/2023): Last Assessment & Plan: Recommendation at this time is to continue with the progressive range of motion and strengthening. We'll see her back in 3 months for repeat evaluation. Sooner if she's having issues. Primary osteoarthritis of fi rst carpometacarpal joint of left hand 11/23/2022 Scapholunate ligament injury with no instability, initial encounter 11/23/2022 Overview (12/16/2022): Last Assessment & Plan: Offered steroid injections, and the patient declined this today. Continue with physical therapy as scheduled. Primary osteoarthritis of left knee 05/06/2022 Overview (09/24/2022): Last Assessment & Plan: We discussed the risks, benefits and alternatives. The only thing proven to slow the progression of osteoarthritis is weight loss. Every pound lost relieves 4 to 6 pounds of stress across the knee. We discussed unloading braces. Formal physical therapy to help with flexibility, mobility and strength. We discussed TENS units. Nonsteroidal anti-inflammatories as well as Tylenol and pain medication and their side effects. We discussed steroid versus Visco supplement injection. We discussed eventual total knee arthroplasty. Begin meloxicam Steroid injected today Preapproval for viscosupplementation Last Assessment & Plan: We discussed the risks, benefits and alternatives. The only thing proven to slow the progression of osteoarthritis is weight loss. Every pound lost relieves 4 to 6 pounds of stress across the knee. We discussed unloading braces. Formal physical therapy to help with flexibility, mobility and strength. We discussed TENS units. Nonsteroidal anti-inflammatories as well as Tylenol and pain medication and their side effects. We discussed steroid versus Visco supplement injection. We discussed eventual total knee arthroplasty. 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 06/26/2020 Cancer of peritoneum 04/18/2020 Cancer Staging:Pathologic stage from 04/29/2020:FIGO Stage IIIC(pT3c, pN1b, cM0) - Signed by Belem Menchaca MD on 05/13/2020 Pure hypercholesterolemia 06/27/2019 Chronic left-sided low back pain with left-sided sciatica 05/01/2019 Overview (02/06/2021): Last Assessment & Plan: Will try gabapentin Irritable bowel syndrome 12/21/2012 Gastroesophageal reflux disease 07/18/2012 Depression Hiatal hernia Resolved Problems Problem Noted Date Diagnosed Date Resolved Date Peritoneal carcinoma 01/06/2025 025 Severe malnutrition 11/13/2021 03/19/20 22 Right shoulder pain 02/05/2021 03/19/20 22 Shingles 10/17/2020 12/19/2020 Abscess 05/27/2020 05/27/2020 Peritonitis 05/27/2020 07/18/2020 Assessment & Plan (06/26/2020 9:24 AM CDT): - Stop Ertapenem 1000mg IV q24hrs as pt has completed 4+ weeks of IV therapy for intraabdominal infection, including 1 week after drain removal; Cx + mixed aerobic/anaerobic, Streptococcus agalactiae, and Bacteriodes faecis. - Pt's drain removed on 06/12/20 as IR imaging showed resolution of fluid collection. - Discussed with patient the rational for treatment, culture results, risk of recurrent infection, signs/symptoms of recurrent infection, and to contact ID clinic with any questions or concerns. - Given patients extensive scheduled follow-up appointments and imaging with GynOnc, pt does not need to follow-up with ID again unless circumstances change. Pt and aware that ID always here as a resource if pt has additional need for ID care. Assessment & Plan (06/11/2020 10:01 AM CDT): - Continue Ertapenem 1g IV q 24 hours to complete a minimum of 4 weeks of IV therapy (06/15/20) for intra-abdominal sepsis/small bowel anastomosis dehiscence, s/p IR drain placement. Will continue abx until 1 week after last drain is removed. - Continue regular lab monitoring while on IV abx. - Keep follow-up appointments with IR and AUXILIARY EQUIPMENT OPERATOR as directed. - Discussed with patient the rational for treatment, culture results, risk of recurrent infection, signs/symptoms of recurrent infection, and to contact ID clinic with any questions or concerns. Assessment & Plan (05/27/2020 10:19 AM CDT): 65 y.o. female with history of metastatic ovarian cancer Patient underwent an ex lap, bilateral salpingo-oophorectomy, small bowel resection, rectosigmoid resection with reanastamosis, para-aortic lymphadenectomy and optimal debulking on 04/29/2020.This was complicated by dehiscence of small bowel anastomosis and now with worsening peritonitis. Intra-abdominal drains placed on 05/19/2020. ID consulted for antibiotic recommendations. Source of peritonitis likely is secondary to leaking of enteric content from her small bowel anastomosis. She is currently on ertapenem to cover enteric gram- negative organisms and anaerobes. C.Diff/VRE (05/17) negative Bcx (05/18) NG Abdominal culture (05/19) Mixed organisms, Streop Agalactiae (group B), bacteroides C.Diff (05/25) negative Patient states she has very recently started on clears and it is causing significant nausea. Reports all she has had is a popsicle. She continues to have multiple episodes of diarrhea a day. Loose stools started prior to the antibiotics and two C-Diff tests has come back negative. Plan: -Please continue Ertapenem 1g Q24H. -Anticipated end date on 06/15/2020 -Please obtain at least a weekly CBC with Diff and CMP while on the IV antibiotics. Last LFTs on 05/23. -Thank you for allowing us to participate in the care of this patient. For questions or concerns, please do not hesitate to call. ID will continue to peripherally follow. Inadequate oral intake 05/17/202003/19 Nausea & vomiting 05/17/2020 07/18/2020 Recurrent major depressive d isorder, in full remission 04/18/2020 04/18/2020 Overview (04/18/2020): Last Assessment & Plan: Doing well on lexapro Pelvic mass in female 04/18/20202019 Overview (04/18/2020): Added automatically from request for surgery [id number] Heart burn 07/03/2019 04/18/2020 Overview (07/03/2019): Added automatically from request for surgery [id number] Malignant neoplasm of overla pping sites of right female breast 05/16/2019 04/18/2020 Former smoker 07/18/2012 04/18/2020 Overview (12/24/2017): Description: 03/19/14 Hyperlipidemia 07/18/2020 Immunizations Immunization Administration Dates Next Due Influenza, Quadrivalent, Hig h Dose, Preservative Free, Intrr 07/21/2023 Influenza, Quadrivalent, Split, Intramuscular Influenza, Trivalent, High D ose, Split, Preservative Free, Intramuscular 04/20/2024 Influenza, Trivalent, Preservative Free, Intramu scular 05/19/2016 Influenza, Unspecified 04/20/2024,05/25/2022 Pfizer SARS-CoV-2 Monovalent Vaccination (12+ Yrs) JULIAN-READY TO USE 01/05/2022 Pfizer Sars-Cov-2 Bivalent Vaccination (12+ YRS) 09/15/2022 Pneumococcal Conjugate Pcv20 04/11/2022 Tdap 04/15/2021 ZOSTER LIVE 06/11/2019,02/27/2019 ZOSTER Recombinant 06/15/2022,04/11/2022 Social History Tobacco Use Types Packs/Day Years Used Date Smoking Tobacco: Former Cigarettes Q uit: 1991 Smokeless Tobacco: Never Tobacco Cessation:Counseling Given: Not Answered Alcohol Use Standard Drinks/Week Comments Not Currently [...] on file 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 Gender Identity Not on file Sexual Orientation Not on file 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 Not on file Not on file Not on file Last Filed Vital Signs Vital Sign Reading Time Taken Comments Blood Pressure 120/76 02/08/2025 3:04 PM CDT Pulse 92 02/08/2025 3:04 PM CDT Temperature 37 C (98.6 F) 02/08/2025 3:04 PM CDT Respiratory Rate 24 02/08/2025 3:04 PM CDT Oxygen Saturation 97% 02/08/2025 3:04 PM CDT Inhaled Oxygen Concentration - - Weight 66.1 kg (145 lb 12.8 oz) 02/08/2025 3:04 PM CDT Height 170.2 cm (5' 7) 01/06/2025 4:30 AM CDT Body Mass Index 22.84 01/06/2025 4:30 AM CDT Plan of Treatment Not on file Medical Devices Implanted Type Area Psychiatric Specialist Device Identifier Shelf Expiration Date Model / Serial / Lot [employer] Stent Ureteral Set Double Pigtail Radiopaque Tip Universa [id number] Hydrophilic Coated [id number] - [id number] Implanted:Qty: 1 on 01/06/2025 by Breanna Ac MD at [facility] Stent Right: Ureter [employer] 10/17/2027 [id number] / / [id number] [employer] [id number] Xcela 8fr 1.6mm 1 Lumen Low Profile Power Injectable Fill Suture - [id number] Implanted:Qty: 1 on 06/05/2020 at [facility] [employer] 02/17/2025 [id number] / [id number] Procedures Procedure Name Priority Date/Time Associated Diagnosis Comments EGFR STAT 02/08/2025 4:43 PM CDT Cancer of peritoneum (HCC) Malignant neoplasm of ovary, unspecified laterality (HCC) DIFFERENTIAL AUTO STAT 02/08/2025 4:4 3 PM CDT Cancer of peritoneum (HCC) Malignant neoplasm of ovary, unspecified laterality (HCC) CBC WITH AUTO DIFFERENTIAL STAT 02/08/2025 4:43 PM CDT Cancer of peritoneum (HCC) Malignant neoplasm of ovary, unspecified laterality (HCC) COMPREHENSIVE METABOLIC PANEL STAT 02/08/2025 4:43 PM CDT Cancer of peritoneum (HCC) Malignant neoplasm of ovary, unspecified laterality (HCC) EGFR Routine 02/02/2025 3:03 PM CDT Peritoneal carcinoma (HCC) DIFFERENTIAL AUTO Routine 02/02/2025 3:0 3 PM CDT Peritoneal carcinoma (HCC) CA 125 Routine 02/02/2025 3:03 PM CDT Peritoneal carcinoma (HCC) CBC WITH AUTO DIFFERENTIAL Routine 02/02/2025 3:03 PM CDT Peritoneal carcinoma (HCC) COMPREHENSIVE METABOLIC PANEL Routine 02/02/2025 3:03 PM CDT Peritoneal carcinoma (HCC) MAGNESIUM Routine 02/02/2025 3:03 PM CDT Peritoneal carcinoma (HCC) HIV 1/2 ANTIBODY PLUS P24 ANTIGEN STAT 01/08/2025 12:43 PM CDT HEPATITIS C ANTIBODY STAT 01/08/2025 12:43 PM CDT HEPATITIS B SURFACE ANTIGEN STAT 01/08/2025 12:43 PM CDT EGFR Routine 01/07/2025 8:30 PM CDT CBC WITHOUT DIFFERENTIAL Routine 01/07/2025 8:30 PM CDT BASIC METABOLIC PANEL Routine 01/07/2025 8:30 PM CDT MAGNESIUM Routine 01/07/2025 8:30 PM CDT PHOSPHORUS Routine 01/07/2025 8:30 PM CDT EGFR Routine 01/06/2025 8:04 PM CDT CALCIUM, IONIZED Timed 01/06/2025 8:04 PM CDT CBC WITHOUT DIFFERENTIAL Routine 01/06/2025 8:04 PM CDT BASIC METABOLIC PANEL Routine 01/06/2025 8:04 PM CDT MAGNESIUM Routine 01/06/2025 8:04 PM CDT PHOSPHORUS Routine 01/06/2025 8:04 PM CDT POC BLOOD GAS AND CHEMISTRIES, ARTERIAL Routine 01/06/2025 2:18 PM CDT FL FLUOROSCOPY < 1 HOUR IP Routine 01/06/2025 1:52 PM CDT AL AN PROCEDURE PLACEHOLDER Routine 01/06/2025 1:47 PM CDT AL AN PROCEDURE PLACEHOLDER Routine 01/06/2025 1:45 PM CDT AL AN ELECTIVE ENDOTRACHEAL AIRWAY Routine 01/06/2025 1:45 PM CDT TRANSFUSE RED BLOOD CELLS Timed 01/06/2025 1:36 PM CDT CYSTOSCOPY RETROGRADE PYELOGRAM - INSERTION URETERAL STENT 01/06/2025 1:12 PM CDT Hydronephrosis of right kidney PREPARE RBC STAT 01/06/2025 12:00 PM CDT URINALYSIS, MICROSCOPIC ONLY Routine 01/06/2025 10:55 AM CDT URINALYSIS AND REFLEX TO MICROSCOPIC AND CULTURE Routine 01/06/2025 10:55 AM CDT URINE CULTURE Routine 01/06/2025 10:46 AM CDT TYPE AND SCREEN Timed 01/06/2025 6:06 AM CDT PREPARE RBC Timed 01/06/2025 5:50 AM CDT EGFR Timed 01/06/2025 4:47 AM CDT DIFFERENTIAL AUTO Timed 01/06/2025 4:4 7 AM CDT CA 125 Timed 01/06/2025 4:47 AM CDT APTT Timed 01/06/2025 4:47 AM CDT PROTIME-INR Timed 01/06/2025 4:47 AM CDT CBC WITH AUTO DIFFERENTIAL Timed 01/06/2025 4:47 AM CDT PHOSPHORUS Timed 01/06/2025 4:47 AM CDT MAGNESIUM Timed 01/06/2025 4:47 AM CDT COMPREHENSIVE METABOLIC PANEL Timed 01/06/2025 4:[address] ABDOMEN PELVIS W CONTRAST ED 01/05/2025 8:56 PM CDT TROPONIN I HIGH-SENSITIVITY 2-HOUR Timed 01/05/2025 8:06 PM CDT LIPASE STAT 01/05/2025 5:49 PM CDT EGFR STAT 01/05/2025 5:49 PM CDT DIFFERENTIAL AUTO STAT 01/05/2025 5:4 9 PM CDT TROPONIN I HIGH-SENSITIVITY SERIES (BASELINE, 2HR, 4HR, 6HR) STAT 01/05/2025 5:49 PM CDT COMPREHENSIVE METABOLIC PANEL STAT 01/05/2025 5:49 PM CDT CBC WITH AUTO DIFFERENTIAL STAT 01/05/2025 5:49 PM CDT XR CHEST PA LATERAL 2 VIEWS ED 01/05/2025 1:20 PM CDT ECG 12-LEAD STAT 01/05/2025 1:08 PM CDT EGFR STAT 01/01/2025 1:57 PM CDT Cancer of peritoneum (HCC) Malignant neoplasm of ovary, unspecified laterality (HCC) DIFFERENTIAL AUTO STAT 01/01/2025 1:5 7 PM CDT Cancer of peritoneum (HCC) Malignant neoplasm of ovary, unspecified laterality (HCC) CBC WITH AUTO DIFFERENTIAL STAT 01/01/2025 1:57 PM CDT Cancer of peritoneum (HCC) Malignant neoplasm of ovary, unspecified laterality (HCC) COMPREHENSIVE METABOLIC PANEL STAT 01/01/2025 1:57 PM CDT Cancer of peritoneum (HCC) Malignant neoplasm of ovary, unspecified laterality (HCC) EGFR STAT 12/05/2024 11:21 AM CDT Cancer of peritoneum (HCC) Malignant neoplasm of ovary, unspecified laterality (HCC) DIFFERENTIAL AUTO STAT 12/05/2024 11: 21 AM CDT Cancer of peritoneum (HCC) Malignant neoplasm of ovary, unspecified laterality (HCC) CBC WITH AUTO DIFFERENTIAL STAT 12/05/2024 11:21 AM CDT Cancer of peritoneum (HCC) Malignant neoplasm of ovary, unspecified laterality (HCC) COMPREHENSIVE METABOLIC PANEL STAT 12/05/2024 11:21 AM CDT Cancer of peritoneum (HCC) Malignant neoplasm of ovary, unspecified laterality (HCC) SCREENING MAMMOGRAM LEFT W PARDEEP UNILATERAL ONLY Schedule Routine, Read Routine (OP Routine) 04/28/2024 2:23 PM CDT History of breast cancer BRCA1 positive History of mastectomy, right Encounter for screening mammogram for malignant neoplasm of breast from Last 3 Months or Most Recently Relevant to Health Maintenance Results * (ABNORMAL) eGFR (02/08/2025 4:43 PM CDT) eGFR 34(L) >=60 mL/min/1. 73 m2 Comment: Interpretive Data Reference Interval Normal >/= 90 mL/min/1.73m2 Mildly decreased* 60 - 89 mL/min/1.73m2 Mildly to moderately decreased 45 - 59 mL/min/1.73m2 Moderately to severely decreased 30 - 44 mL/min/1.73m2 Severely decreased 15 - 29 mL/min/1.73m2 Kidney Failure < 15 mL/min/1.73m2 *Relative to young adult level Estimated glomerular filtration rate is determined by the 2020 CKD-EPI equation recommended by the National Kidney [employer] (A Unifying Approach to GFR Estimation: Recommendations of the NKF-ASK Task Force on Reassessing the Inclusion of Race in Diagnosing Kidney Disease, JASN 202). The CKD-EPI equation should not be used for patients with unstable renal function and has not been validated in children and those over 70. Current interpretive data was last reviewed 2021. Blood 02/08/2025 4:43 PM CDT 02/08/2025 5:39 PM CDT us Belem Menchaca MD LAB BLOOD ORDERABLES Marbella jeong Result [facility] Department [place] [address] * Differential, auto (02/08/2025 4:43 PM CDT) Neutrophil abs 4.33 1.50 - 6.50 K/cumm Imm gran abs 0.02 0.00 - 0.10 K/cumm [facility] Lymphocyte abs 0.86 0.80 - 3.30 K/cumm [facility] Monocyte abs 0.62 0.20 - 0.80 K/cumm [facility] Eosinophil abs 0.24 0.00 - 0.50 K/cumm [facility] Basophil abs 0.04 0.00 - 0.10 K/cumm [facility] Neutrophil pct 70.9 % [facility] Comment: Interpretive Data Percent cell count reference ranges are not reported, since discordance with absolute values may lead to misinterpretation of CBC data. Current Interpretive Data was last revised on 2017. Imm gran pct 0.3 % [facility] Comment: Interpretive Data Percent cell count reference ranges are not reported, since discordance with absolute values may lead to misinterpretation of CBC data. Current Interpretive Data was last revised on 2017. Lymphocyte pct 14.1 % [facility] Comment: Interpretive Data Percent cell count reference ranges are not reported, since discordance with absolute values may lead to misinterpretation of CBC data. Current Interpretive Data was last revised on 2017. Monocyte pct 10.1 % [facility] Comment: Interpretive Data Percent cell count reference ranges are not reported, since discordance with absolute values may lead to misinterpretation of CBC data. Current Interpretive Data was last revised on 2017. Eosinophil pct 3.9 % [facility] Comment: Interpretive Data Percent cell count reference ranges are not reported, since discordance with absolute values may lead to misinterpretation of CBC data. Current Interpretive Data was last revised on 2017. Basophil pct 0.7 % [facility] Comment: Interpretive Data Percent cell count reference ranges are not reported, since discordance with absolute values may lead to misinterpretation of CBC data. Current Interpretive Data was last revised on 2017. Blood 02/08/2025 4:43 PM CDT 02/08/2025 5:35 PM CDT Belem Menchaca MD LAB BLOOD ORDERABLES Marbella jeong Result [facility] Department [place] [address] * (ABNORMAL) CBC with auto differential (02/08/2025 4:43 PM CDT) WBC 6.11 3.80 - 9.90 K/cumm Hgb 8.7(L) 11.9 - 15.5 g/dL [facility] Hct 26.0(L) 35.6 - 45.5 % [facility] Plt 246 150 - 400 K/cumm [facility] MPV 11.1 9.1 - 12.3 fL [facility] RBC 2.41(L) 3.90 - 5.20 M/cumm [facility] MCV 107.9(H) 81.3 - 96.4 fL [facility] MCH 36.1(H) 27.1 - 33.3 pg [facility] MCHC 33.5 32.3 - 35.7 g/dL [facility] RDW CV 21.4(H) 11.1 - 14.9 % [facility] RDW SD 83.2(H) 35.7 - 48.1 fL [facility] NRBC abs 0.00 0.00 - 0.01 K/cumm [facility] Blood 02/08/2025 4:43 PM CDT 02/08/2025 5:35 PM CDT us Belem Menchaca MD LAB BLOOD ORDERABLES Marbella l Result [facility] Department [place] [address] * (ABNORMAL) Comprehensive metabolic panel (02/08/2025 4:43 PM CDT) Sodium 139 135 - 145 mmol/L Potassium, pl 4.6 3.3 - 4.9 mmol/L [facility] Chloride 104 97 - 110 mmol/L [facility] CO2 28 22 - 32 mmol/L [facility] Anion gap 7 2 - 15 mmol/L [facility] BUN 9 6 - 25 mg/dL [facility] Creatinine 1.64(H) 0.60 - 1.10 mg/dL [facility] Glucose 109 70 - 199 mg/dL [facility] Comment: Interpretive Data Fasting glucose >/= 126 mg/dl is diagnostic for diabetes. Fasting is defined as no caloric intake for at least 8 hours. Fasting glucose between 100 mg/dl to 125 mg/dl is diagnostic of prediabetes. In a patient with classic symptoms of hyperglycemia or hyperglycemic crisis, a random glucose >/= 200 mg/dl is diagnostic for diabetes. In the absence of unequivocal hyperglycemia, results should be confirmed by repeat testing. The classification and Diagnosis of Diabetes Diabetes Care 202; 46: S19-S40. Current interpretive data was last revised 2022. Calcium 8.8 8.5 - 10.3 mg/dL [facility] Bilirubin, total 0.2 0.1 - 1.2 mg/dL [facility] Protein, pl 6.0(L) 6.5 - 8.5 g/dL [facility] Albumin 3.4(L) 3.5 - 5.0 g/dL [facility] Alk phos 139(H) 40 - 130 Units/L [facility] ALT 13 7 - 45 Units/L [facility] AST 21 10 - 45 Units/L [facility] Blood 02/08/2025 4:43 PM CDT 02/08/2025 5:35 PM CDT Belem Menchaca MD LAB BLOOD ORDERABLES Marbella l Result Performing Organization Address City/[facility] Co de Phone Number [facility] Department [place] [address] * (ABNORMAL) eGFR (02/02/2025 3:03 PM CDT) eGFR 29(L) >=60 mL/min/1. 73 m2 Comment: Interpretive Data Reference Interval Normal >/= 90 mL/min/1.73m2 Mildly decreased* 60 - 89 mL/min/1.73m2 Mildly to moderately decreased 45 - 59 mL/min/1.73m2 Moderately to severely decreased 30 - 44 mL/min/1.73m2 Severely decreased 15 - 29 mL/min/1.73m2 Kidney Failure < 15 mL/min/1.73m2 *Relative to young adult level Estimated glomerular filtration rate is determined by the 2020 CKD-EPI equation recommended by the National Kidney Foundation (A Unifying Approach to GFR Estimation: Recommendations of the NKF-ASK Task Force on Reassessing the Inclusion of Race in Diagnosing Kidney Disease, JASN 2020). The CKD-EPI equation should not be used for patients with unstable renal function and has not been validated in children and those over 70. Current interpretive data was last reviewed 2021. Blood 02/02/2025 3:03 PM CDT 02/02/2025 3:26 PM CDT Belem Menchaca MD LAB BLOOD ORDERABLES Marbella l Result Performing Organization Address City/[facility]/ZIP Co de Phone Number [facility] [place] [place] [address] * (ABNORMAL) Differential, auto (02/02/2025 3:03 PM CDT) Neutrophil abs 3.45 1.50 - 6.50 K/cumm Imm gran abs 0.02 0.00 - 0.10 K/cumm [facility] Lymphocyte abs 0.77(L) 0.80 - 3.30 K/cumm [facility] Monocyte abs 0.52 0.20 - 0.80 K/cumm [facility] Eosinophil abs 0.20 0.00 - 0.50 K/cumm [facility] Basophil abs 0.03 0.00 - 0.10 K/cumm [facility] Neutrophil pct 69.2 % [facility] Comment: Interpretive Data Percent cell count reference ranges are not reported, since discordance with absolute values may lead to misinterpretation of CBC data. Current Interpretive Data was last revised on 2017. Imm gran pct 0.4 % [facility] Comment: Interpretive Data Percent cell count reference ranges are not reported, since discordance with absolute values may lead to misinterpretation of CBC data. Current Interpretive Data was last revised on 2017. Lymphocyte pct 15.4 % [facility] Comment: Interpretive Data Percent cell count reference ranges are not reported, since discordance with absolute values may lead to misinterpretation of CBC data. Current Interpretive Data was last revised on 2017. Monocyte pct 10.4 % [facility] Comment: Interpretive Data Percent cell count reference ranges are not reported, since discordance with absolute values may lead to misinterpretation of CBC data. Current Interpretive Data was last revised on 2017. Eosinophil pct 4.0 % [facility] Comment: Interpretive Data Percent cell count reference ranges are not reported, since discordance with absolute values may lead to misinterpretation of CBC data. Current Interpretive Data was last revised on 2017. Basophil pct 0.6 % [facility] Comment: Interpretive Data Percent cell count reference ranges are not reported, since discordance with absolute values may lead to misinterpretation of CBC data. Current Interpretive Data was last revised on 2017. Blood 02/02/2025 3:03 PM CDT 02/02/2025 3:25 PM CDT us Belem Menchaca MD LAB BLOOD ORDERABLES Marbella l Result Performing Organization Address [facility]/ZIP Co de Phone Number [facility] [place] [employer] [place] [address] * (ABNORMAL) CBC with auto differential (02/02/2025 3:03 PM CDT) [facility] WBC 4.99 3.80 - 9.90 K/cumm Hgb 8.4(L) 11.9 - 15.5 g/dL [facility] Hct 24.4(L) 35.6 - 45.5 % [facility] Plt 223 150 - 400 K/cumm [facility] MPV 11.2 9.1 - 12.3 fL [facility] RBC 2.31(L) 3.90 - 5.20 M/cumm [facility] MCV 105.6(H) 81.3 - 96.4 fL [facility] MCH 36.4(H) 27.1 - 33.3 pg [facility] MCHC 34.4 32.3 - 35.7 g/dL [facility] RDW CV 21.5(H) 11.1 - 14.9 % [facility] RDW SD 80.4(H) 35.7 - 48.1 fL [facility] NRBC abs 0.00 0.00 - 0.01 K/cumm [facility] Blood 02/02/2025 3:03 PM CDT 02/02/2025 3:25 PM CDT Belem Menchaca MD LAB BLOOD ORDERABLES Marbella l Result [facility] [place] [place] [address] * (ABNORMAL) CA 125 (02/02/2025 3:03 PM CDT) Pathologist [facility] [place] 125 ag 69.8(H) 0.0 - 38.1 units/mL Comment: Interpretive Data [employer] [place] 125 assay procedure was used. Results from different manufacturers or methods may not be comparable. Serial testing should be performed using the same method. Blood 02/02/2025 3:03 PM CDT 02/02/2025 3:26 PM CDT Belem Menchaca MD LAB BLOOD ORDERABLES Marbella l Result Performing Organization Address City/[facility] Co de Phone Number [facility] Department [place] [address] * Magnesium (02/02/2025 3:03 PM CDT) [facility] Magnesium 1.4 1.4 - 2.5 mg/dL Blood 02/02/2025 3:03 PM CDT 02/02/2025 3:26 PM CDT Belem Menchaca MD LAB BLOOD ORDERABLES Marbella l Result Performing Organization Address [facility] de Phone Number [facility] Department [place] [address] * (ABNORMAL) Comprehensive metabolic panel (02/02/2025 3:03 PM CDT) [facility] Sodium 137 135 - 145 mmol/L Potassium, pl 4.5 3.3 - 4.9 mmol/L [facility] Chloride 103 97 - 110 mmol/L [facility] CO2 27 22 - 32 mmol/L [facility] Anion gap 7 2 - 15 mmol/L [facility] BUN 10 6 - 25 mg/dL [facility] Creatinine 1.85(H) 0.60 - 1.10 mg/dL [facility] Glucose 99 70 - 199 mg/dL [facility] Comment: Interpretive Data Fasting glucose >/= 126 mg/dl is diagnostic for diabetes. Fasting is defined as no caloric intake for at least 8 hours. Fasting glucose between 100 mg/dl to 125 mg/dl is diagnostic of prediabetes. In a patient with classic symptoms of hyperglycemia or hyperglycemic crisis, a random glucose >/= 200 mg/dl is diagnostic for diabetes. In the absence of unequivocal hyperglycemia, results should be confirmed by repeat testing. The classification and Diagnosis of Diabetes Diabetes Care 2021; 46: S19-S40. Current interpretive data was last revised 2022. Calcium 8.7 8.5 - 10.3 mg/dL [facility] Bilirubin, total 0.3 0.1 - 1.2 mg/dL [facility] Protein, pl 6.0(L) 6.5 - 8.5 g/dL [facility] Albumin 3.2(L) 3.5 - 5.0 g/dL [facility] Alk phos 127 40 - 130 Units/L [facility] ALT 10 7 - 45 Units/L [facility] AST 23 10 - 45 Units/L [facility] Blood 02/02/2025 3:03 PM CDT 02/02/2025 3:26 PM CDT us Belem Menchaca MD LAB BLOOD ORDERABLES Marbella l Result Performing Organization Address City/[facility]/ZIP Co de Phone Number [facility] Department [place] [address] * HIV 1/2 Antibody plus p24 Antigen Blood (01/08/2025 12:43 PM CDT) HIV 1/2 ab + p24 ag Nonreactive Nonreactive Comment:Nonreactive for HIV- 1 antigen and HIV-1/HIV-2 antibodies. No laboratory evidence of HIV infection. If acute HIV infection is suspected, consider testing for HIV-1 RNA. Current interpretive data was last revised on 22. Blood 01/08/2025 12:4 3 PM CDT 01/08/2025 12:54 PM CDT us Cipriano Giron MD LAB MICROBIOLOGY - GENERAL OR DERABLES Final Result Performing Organization Address City/[facility]/ZIP Co de Phone Number [facility] Department [place] [address] * Hepatitis C antibody Blood (01/08/2025 12:43 PM CDT) Hep C Ab Nonreactive Nonreactive Comment:Antibodies to HCV no t detected. Does NOT exclude the possibility of recent exposure to HCV. Current interpretive data was last revised on 22 Blood 01/08/2025 12:4 3 PM CDT 01/08/2025 12:54 PM CDT Cipriano Giron MD LAB MICROBIOLOGY - GENERAL OR DERABLES Final Result Performing Organization Address City/[facility] Co de Phone Number [facility] Department [place] [address] * Hepatitis B Surface Antigen Blood (01/08/2025 12:43 PM CDT) Pathologist [facility] [place] HepBsAg Nonreactive Nonreactive Blood 01/08/2025 12:4 3 PM CDT 01/08/2025 12:54 PM CDT Cipriano Giron MD LAB MICROBIOLOGY - GENERAL OR DERABLES Final Result Performing Organization Address [facility] de Phone Number [facility] [place] [place] [address] * (ABNORMAL) eGFR (01/07/2025 8:30 PM CDT) Pathologist [facility] [place] eGFR 41(L) >=60 mL/min/1. 73 m2 Comment: Interpretive Data Reference Interval Normal >/= 90 mL/min/1.73m2 Mildly decreased* 60 - 89 mL/min/1.73m2 Mildly to moderately decreased 45 - 59 mL/min/1.73m2 Moderately to severely decreased 30 - 44 mL/min/1.73m2 Severely decreased 15 - 29 mL/min/1.73m2 Kidney Failure < 15 mL/min/1.73m2 *Relative to young adult level Estimated glomerular filtration rate is determined by the 2020 CKD-EPI equation recommended by the National Kidney Foundation (A Unifying Approach to GFR Estimation: Recommendations of the NKF-ASK Task Force on Reassessing the Inclusion of Race in Diagnosing Kidney Disease, JASN 2021). The CKD-EPI equation should not be used for patients with unstable renal function and has not been validated in children and those over 70. Current interpretive data was last reviewed 2021. Blood 01/07/2025 8:30 PM CDT 01/07/2025 11:57 PM CDT Belem Menchaca MD LAB BLOOD ORDERABLES Marbella l Result Performing Organization Address [facility] de Phone Number [facility] Department [place] [address] * (ABNORMAL) CBC without differential (01/07/2025 8:30 PM CDT) WBC 6.91 3.80 - 9.90 K/cumm Hgb 8.1(L) 11.9 - 15.5 g/dL [facility] Hct 23.7(L) 35.6 - 45.5 % [facility] Plt 184 150 - 400 K/cumm [facility] MPV 11.4 9.1 - 12.3 fL [facility] RBC 2.32(L) 3.90 - 5.20 M/cumm [facility] MCV 102.2(H) 81.3 - 96.4 fL [facility] MCH 34.9(H) 27.1 - 33.3 pg [facility] MCHC 34.2 32.3 - 35.7 g/dL [facility] RDW CV 23.0(H) 11.1 - 14.9 % [facility] RDW SD 83.7(H) 35.7 - 48.1 fL [facility] NRBC abs 0.00 0.00 - 0.01 K/cumm [facility] Blood 01/07/2025 8:30 PM CDT 01/07/2025 11:58 PM CDT Belem Menchaca MD LAB BLOOD ORDERABLES Marbella l Result Performing Organization Address [facility] Co de Phone Number [facility] Department [place] [address] * (ABNORMAL) Phosphorus (01/07/2025 8:30 PM CDT) [facility] Phosphorus, pl 2.2(L) 2.3 - 4.5 mg/dL Blood 01/07/2025 8:30 PM CDT 01/07/2025 11:57 PM CDT Belem Menchaca MD LAB BLOOD ORDERABLES Marbella l Result [facility] [place] [address] * Magnesium (01/07/2025 8:30 PM CDT) [facility] Magnesium 1.5 1.4 - 2.5 mg/dL Blood 01/07/2025 8:30 PM CDT 01/07/2025 11:57 PM CDT Belem Menchaca MD LAB BLOOD ORDERABLES Marbella l Result [facility] [place] [address] * (ABNORMAL) Basic metabolic panel (01/07/2025 8:30 PM CDT) [facility] Sodium 143 135 - 145 mmol/L Potassium, pl 3.9 3.3 - 4.9 mmol/L [facility] Chloride 107 97 - 110 mmol/L [facility] CO2 25 22 - 32 mmol/L [facility] Anion gap 11 2 - 15 mmol/L [facility] BUN 11 6 - 25 mg/dL [facility] Creatinine 1.40(H) 0.60 - 1.10 mg/dL [facility] Glucose 87 70 - 199 mg/dL [facility] Comment: Interpretive Data Fasting glucose >/= 126 mg/dl is diagnostic for diabetes. Fasting is defined as no caloric intake for at least 8 hours. Fasting glucose between 100 mg/dl to 125 mg/dl is diagnostic of prediabetes. In a patient with classic symptoms of hyperglycemia or hyperglycemic crisis, a random glucose >/= 200 mg/dl is diagnostic for diabetes. In the absence of unequivocal hyperglycemia, results should be confirmed by repeat testing. The classification and Diagnosis of Diabetes Diabetes Care 2021; 46: S19-S40. Current interpretive data was last revised 2022. Calcium 8.9 8.5 - 10.3 mg/dL [facility] Blood 01/07/2025 8:30 PM CDT 01/07/2025 11:57 PM CDT us Belem Menchaca MD LAB BLOOD ORDERABLES Amrbella jean-paul Result [facility] [place] [address] * (ABNORMAL) eGFR (01/06/2025 8:04 PM CDT) eGFR 39(L) >=60 mL/min/1. 73 m2 Comment: Interpretive Data Reference Interval Normal >/= 90 mL/min/1.73m2 Mildly decreased* 60 - 89 mL/min/1.73m2 Mildly to moderately decreased 45 - 59 mL/min/1.73m2 Moderately to severely decreased 30 - 44 mL/min/1.73m2 Severely decreased 15 - 29 mL/min/1.73m2 Kidney Failure < 15 mL/min/1.73m2 *Relative to young adult level Estimated glomerular filtration rate is determined by the 2020 CKD-EPI equation recommended by the National Kidney Foundation (A Unifying Approach to GFR Estimation: Recommendations of the NKF-ASK Task Force on Reassessing the Inclusion of Race in Diagnosing Kidney Disease, JASN 2020). The CKD-EPI equation should not be used for patients with unstable renal function and has not been validated in children and those over 70. Current interpretive data was last reviewed 2021. Blood 01/06/2025 8:04 PM CDT 01/06/2025 10:31 PM CDT Belem Menchaca MD LAB BLOOD ORDERABLES Marbella l Result [facility] [place] [address] * Calcium, ionized (01/06/2025 8:04 PM CDT) [facility] Calcium, Ionized 4.73 4.50 - 5.10 mg/dL Blood 01/06/2025 8:04 PM CDT 01/06/2025 10:17 PM CDT Belem Menchaca MD LAB BLOOD ORDERABLES Marbella l Result Performing Organization Address [facility] de Phone Number [facility] [place] [address] * (ABNORMAL) CBC without differential (01/06/2025 8:04 PM CDT) [facility] WBC 9.00 3.80 - 9.90 K/cumm Hgb 8.7(L) 11.9 - 15.5 g/dL [facility] Hct 25.8(L) 35.6 - 45.5 % [facility] Plt 180 150 - 400 K/cumm [facility] MPV 11.4 9.1 - 12.3 fL [facility] RBC 2.51(L) 3.90 - 5.20 M/cumm [facility] MCV 102.8(H) 81.3 - 96.4 fL [facility] Comment:MCV delta due to cristy arent blood transfusion. MCH 34.7(H) 27.1 - 33.3 pg [facility] MCHC 33.7 32.3 - 35.7 g/dL [facility] RDW CV 22.4(H) 11.1 - 14.9 % [facility] RDW SD 82.6(H) 35.7 - 48.1 fL [facility] NRBC abs 0.00 0.00 - 0.01 K/cumm [facility] Blood 01/06/2025 8:04 PM CDT 01/06/2025 10:27 PM CDT Belem Menchaca MD LAB BLOOD ORDERABLES Marbella l Result Performing Organization Address [facility] Co de Phone Number [facility] [place] [address] * Phosphorus (01/06/2025 8:04 PM CDT) [facility] Phosphorus, pl 3.5 2.3 - 4.5 mg/dL Blood 01/06/2025 8:04 PM CDT 01/06/2025 10:17 PM CDT Belem Menchaca MD LAB BLOOD ORDERABLES Marbella l Result Performing Organization Address [facility] Co de Phone Number [facility] Department [place] [address] * Magnesium (01/06/2025 8:04 PM CDT) [facility] Magnesium 1.4 1.4 - 2.5 mg/dL Blood 01/06/2025 8:04 PM CDT 01/06/2025 10:17 PM CDT Belem Menchaca MD LAB BLOOD ORDERABLES Marbella l Result Performing Organization Address [facility] [place] [place] [address] * (ABNORMAL) Basic metabolic panel (01/06/2025 8:04 PM CDT) [facility] Sodium 143 135 - 145 mmol/L Potassium, pl 3.8 3.3 - 4.9 mmol/L [facility] Chloride 107 97 - 110 mmol/L [facility] CO2 22 22 - 32 mmol/L [facility] Anion gap 14 2 - 15 mmol/L [facility] BUN 10 6 - 25 mg/dL [facility] Creatinine 1.45(H) 0.60 - 1.10 mg/dL [facility] Glucose 123 70 - 199 mg/dL [facility] Comment: Interpretive Data Fasting glucose >/= 126 mg/dl is diagnostic for diabetes. Fasting is defined as no caloric intake for at least 8 hours. Fasting glucose between 100 mg/dl to 125 mg/dl is diagnostic of prediabetes. In a patient with classic symptoms of hyperglycemia or hyperglycemic crisis, a random glucose >/= 200 mg/dl is diagnostic for diabetes. In the absence of unequivocal hyperglycemia, results should be confirmed by repeat testing. The classification and Diagnosis of Diabetes Diabetes Care 202; 46: S19-S40. Current interpretive data was last revised 2022. Calcium 8.6 8.5 - 10.3 mg/dL [facility] Blood 01/06/2025 8:04 PM CDT 01/06/2025 10:17 PM CDT Belem Menchaca MD LAB BLOOD ORDERABLES Marbella l Result Performing Organization Address City/[facility]/ZIP Co de Phone Number [facility] [place] [place] [address] * (ABNORMAL) POC Blood Gas and Chemistries, Arterial - (01/06/2025 2:18 PM CDT) Hct, POC 27.0(L) 36.3 - 45.3 % Total Hb, POC 8.9(L) 11.9 - 15.5 g/dL [facility] Blood 01/06/2025 2:18 PM CDT 01/06/2025 2:18 PM CDT Belem Menchaca MD LAB POCT ORDERABLES - DEV ICE Final Result Performing Organization Address City/[facility]/ZIP Co de Phone Number [facility] [place] [place] [address] * FL Fluoroscopy < 1 Hour (01/06/2025 1:52 PM CDT) Narrative [email or web address] - 01/06/2025 1:52 PM CDT The images from this study are not interpreted by Radiology. Please refer to the physician's procedure / OR operative note. us Breanna Ac MD IMG FLUOROSCOPY PROCEDURES Final Result [email or web address] * AL AN PROCEDURE PLACEHOLDER (01/06/2025 1:47 PM CDT) Narrative Coy Cespedes MD - 01/06/2025 1:47 PM CDT Coy Cespedes MD 01/06/2025 1:47 PM Peripheral IV Catheter Patient location: OR Staff: Supervising provider: Coy Cespedes MD Placed by: Anesthesiologist: Coy Cespedes MD Preprocedure prep: Prep solution: chlorhexadine PPE: gloves and provider hat/mask PIV line: Laterality: left Site: hand Catheter size: 18 g Technique: direct visualization Procedure details: occlusive dressing applied and good blood return Number of attempts: 1 Assessment: Events: patient tolerated procedure well with no complications Coy Cespedes MD ANESTHESIA ORDERABLES Final Resu lt * AL AN ELECTIVE ENDOTRACHEAL AIRWAY, AL AN PROCEDURE PLACEHOLDER (01/06/2025 1:45 PM CDT) Narrative Coy Cespedes MD - 01/06/2025 1:45 PM CDT Coy Cespedes MD 01/06/2025 1:46 PM Airway Patient location: OR Urgency: elective Indications for airway management: anesthesia Difficult airway: no Staff: Supervising provider: Coy Cespedes MD Placed by: Anesthesiologist: Coy Cespedes MD Emergent airway documentation: Risks and benefits discussed: yes Consent obtained: yes Consent given by: patient Airway prep: Preoxygenated: yes Patient position: sniffing Spontaneous ventilation during airway: absent Sedation level during airway: GA Final airway details: Final airway type: endotracheal airway Tube type: ETT ETT size: 7.0 mm Cuffed: yes Technique used for successful ETT placement: video laryngoscopy Insertion site: oral Video blade type: Reese Blade size: 3 Cormack-Lehane (video): grade I - full view of glottis Cuff inflated with: air ETT to lips: 22 cm Placement verified by: auscultation and CO2 detection Airway secured with: silk tape Number of attempts: 1 Planned trial extubation: yes Coy Cespedes MD ANESTHESIA ORDERABLES Final Resu lt * Transfuse RBC (01/06/2025 1:36 PM CDT) Blood Belem Menchaca MD BLOOD TRANSFUSION ORDERAB LES Final Result Performing Organization Address [facility] de Phone Number [facility] [place] [address] * Prepare RBC: 1 Units (01/06/2025 12:00 PM CDT) [facility] Product code [id number] Unit Number [id number] [facility] Product Blood Type ONEG [facility] Dispense Status PRESUMED TRANSFUSED [facility] Blood 01/06/2025 12:0 0 PM CDT 01/06/2025 12:00 PM CDT Narrative [facility] - 01/07/2025 12:55 AM CDT Are special requirements needed? (All products are leukoreduced and CMV- safe)- >No Date required:-[id number] LRRBC # of [id number] Reasons:-Intra-op transfusion} Coy Cespedes MD BLOOD BANK PRODUCT ORDERABLES Fi nal Result Performing Organization Address [facility] de Phone Number [facility] [place] [address] * (ABNORMAL) Urinalysis reflex to microscopic and culture Urine, clean voided (01/06/2025 10:55 AM CDT) Color, ur Straw Yellow Clarity, ur Clear Clear [facility] Specific gravity, ur 1.037(H) 1.003 - 1.030 [facility] pH, urine 6.0 [facility] Comment: Interpretive Data U rine pH is affected by diet, medications, systemic acid-base disturbances, and renal tubular function. pH may affect urinary stone formation. For example, urine pH below 6.0 may help reduce the tendency for calcium phosphate stones and pH greater than 6.0 may reduce the tendency for uric acid stone formation. Source: [facility] [employer] Current Interpretive Data was last revised on 2017 Protein, ur ql Negative Negative [facility] Glucose, ur ql Negative Negative [facility] Ketones, ur 1+(A) Negative [facility] Bilirubin, ur Negative Negative [facility] Blood, ur Negative Negative [facility] Urobilinogen, ur <2.0 <2.0 mg/dL [facility] Nitrite, ur Negative Negative [facility] Leukocyte esterase, ur 1+(A) Negative [facility] UA reflex comment Reflex to microscopic UA will be performed. [facility] Urine, clean voided 01/06/2025 10:55 AM CDT 01/06/2025 11:09 AM CDT Belem Menchaca MD LAB MICROBIOLOGY - GENERA L ORDERABLES Final Result Performing Organization Address City/[facility]/ZIP Co de Phone Number [facility] [place] [address] * (ABNORMAL) Urinalysis, microscopic only (01/06/2025 10:55 AM CDT) WBC, ur 11-20(A) 0 - 5 /HPF RBC, ur 0-2 0 - 2 /HPF [facility] Epithelial cells, squamous, ur 1-5 0 - 5 /HPF [facility] Bacteria, ur 1+(A) [facility] Yeast, ur TRACE [facility] Mucous, ur Present(A) [facility] Urine, clean voided 01/06/2025 10:55 AM CDT 01/06/2025 11:09 AM CDT Belem Menchaca MD LAB URINE ORDERABLES Marbella l Result Performing Organization Address City/[facility]/ZIP Co de Phone Number [facility] Department [place] [address] * (ABNORMAL) Urine culture Urine, bladder (01/06/2025 10:46 AM CDT) Report Final Report: Greater than or equal to 100,000 colonies/mL of Escherichia coli Greater than or equal to 100,000 colonies/mL of Klebsiella pneumoniae (.) Organism ESCHERICHIA COLI [facility] Organism KLEBSIELLA PNEUMONIAE [facility] Urine, bladder 01/06/2025 10 :46 AM CDT 01/06/2025 11:20 AM CDT Narrative [facility] - 01/09/2025 11:42 AM CDT Indications for Culture:->Urology patient Testing performed by [facility] ([phone]) Organism Antibiotic Method Susceptibility Escherichia coli Ampicillin INTERPRETATION Susceptible Escherichia coli Cefazolin INTERPRETATION Susceptible Escherichia coli Nitrofurantoin INTERPRETATION Susceptible Escherichia coli Gentamicin INTERPRETATION Susceptible Escherichia coli Trimethoprim with Sulfamethoxazole INTERPRETATION Susceptible Escherichia coli Meropenem INTERPRETATION Susceptible Escherichia coli Cefepime INTERPRETATION Susceptible Escherichia coli Ciprofloxacin INTERPRETATION Susceptible Escherichia coli Ceftazidime INTERPRETATION Susceptible Escherichia coli Ceftriaxone INTERPRETATION Susceptible Escherichia coli Piperacillin/Tazobactam INTERPRETATIO N Susceptible Escherichia coli Cephalexin INTERPRETATION Susceptible Escherichia coli Cefuroxime-axetil INTERPRETATION Susceptible Escherichia coli Cefdinir INTERPRETATION Susceptible Klebsiella pneumoniae Ampicillin INTERPRETATION Resistant Klebsiella pneumoniae Cefazolin INTERPRETATION Susceptible Klebsiella pneumoniae Nitrofurantoin INTERPRETATION Resistant Klebsiella pneumoniae Gentamicin INTERPRETATION Susceptible Klebsiella pneumoniae Trimethoprim with Sulfamethoxazole INTERPRETATION Susceptible Klebsiella pneumoniae Meropenem INTERPRETATION Susceptible Klebsiella pneumoniae Cefepime INTERPRETATION Susceptible Klebsiella pneumoniae Ciprofloxacin INTERPRETATION Susceptible Klebsiella pneumoniae Ceftazidime INTERPRETATION Susceptible Klebsiella pneumoniae Ceftriaxone INTERPRETATION Susceptible Klebsiella pneumoniae Piperacillin/Tazobactam INTERPRE TATION Susceptible Klebsiella pneumoniae Cephalexin INTERPRETATION Susceptible Klebsiella pneumoniae Cefuroxime-axetil INTERPRETATION Susceptible Klebsiella pneumoniae Cefdinir INTERPRETATION Susceptible us Belem Menchaca MD LAB MICROBIOLOGY - GENERA L ORDERABLES Final Result [facility] [place] [address] * Type and screen (01/06/2025 6:06 AM CDT) Rylee, indirect Negative Comment:Patient has previous antibody history ABO Rh O Negative [facility] Blood 01/06/2025 6:06 AM CDT 01/06/2025 7:24 AM CDT Narrative [facility] - 01/06/2025 9:00 AM CDT Has the patient had Daratumumab or Isatuximab in the past 6 months?->Unknown Belem Menchaca MD LAB BLOOD BANK TEST ORDER BRYCE Final Result Performing Organization Address [facility] de Phone Number [facility] Department [place] [address] * Prepare RBC: 1 Units (01/06/2025 5:50 AM CDT) Pathologist [facility] Product code [id number] Unit Number [id number] [facility] Product Blood Type ONEG [facility] Dispense Status RETURNED [facility] Blood 01/06/2025 5:50 AM CDT 01/06/2025 5:50 AM CDT Narrative [facility] - 01/06/2025 12:15 PM CDT Are special requirements needed? (All products are leukoreduced and CMV- safe)- >No Date required:-[id number] LRRBC # of [id number] Reasons:-Hgb <7 g/dL} Belem Menchaca MD BLOOD BANK PRODUCT ORDERA BLES Final Result Performing Organization Address [facility] Co de Phone Number [facility] Department [place] [address] * (ABNORMAL) eGFR (01/06/2025 4:47 AM CDT) Pathologist [facility] eGFR 35(L) >=60 mL/min/1. 73 m2 Comment: Interpretive Data Reference Interval Normal >/= 90 mL/min/1.73m2 Mildly decreased* 60 - 89 mL/min/1.73m2 Mildly to moderately decreased 45 - 59 mL/min/1.73m2 Moderately to severely decreased 30 - 44 mL/min/1.73m2 Severely decreased 15 - 29 mL/min/1.73m2 Kidney Failure < 15 mL/min/1.73m2 *Relative to young adult level Estimated glomerular filtration rate is determined by the 2020 CKD-EPI equation recommended by the National Kidney Foundation (A Unifying Approach to GFR Estimation: Recommendations of the NKF-ASK Task Force on Reassessing the Inclusion of Race in Diagnosing Kidney Disease, JASN 2020). The CKD-EPI equation should not be used for patients with unstable renal function and has not been validated in children and those over 70. Current interpretive data was last reviewed 2021. Blood 01/06/2025 4:47 AM CDT 01/06/2025 5:27 AM CDT us Belem Menchaca MD LAB BLOOD ORDERABLES Marbella jeong Result [facility] [place] [address] * (ABNORMAL) Differential, auto (01/06/2025 4:47 AM CDT) Pathologist [facility] Neutrophil abs 3.43 1.50 - 6.50 K/cumm Imm gran abs 0.02 0.00 - 0.10 K/cumm [facility] Lymphocyte abs 0.59(L) 0.80 - 3.30 K/cumm [facility] Monocyte abs 0.59 0.20 - 0.80 K/cumm [facility] Eosinophil abs 0.03 0.00 - 0.50 K/cumm [facility] Basophil abs 0.02 0.00 - 0.10 K/cumm [facility] Neutrophil pct 73.4 % [facility] Comment: Interpretive Data Percent cell count reference ranges are not reported, since discordance with absolute values may lead to misinterpretation of CBC data. Current Interpretive Data was last revised on 2017. Imm gran pct 0.4 % [facility] Comment: Interpretive Data Percent cell count reference ranges are not reported, since discordance with absolute values may lead to misinterpretation of CBC data. Current Interpretive Data was last revised on 2017. Lymphocyte pct 12.6 % [facility] Comment: Interpretive Data Percent cell count reference ranges are not reported, since discordance with absolute values may lead to misinterpretation of CBC data. Current Interpretive Data was last revised on 2017. Monocyte pct 12.6 % [facility] Comment: Interpretive Data Percent cell count reference ranges are not reported, since discordance with absolute values may lead to misinterpretation of CBC data. Current Interpretive Data was last revised on 2017. Eosinophil pct 0.6 % [facility] Comment: Interpretive Data Percent cell count reference ranges are not reported, since discordance with absolute values may lead to misinterpretation of CBC data. Current Interpretive Data was last revised on 2017. Basophil pct 0.4 % [facility] Comment: Interpretive Data Percent cell count reference ranges are not reported, since discordance with absolute values may lead to misinterpretation of CBC data. Current Interpretive Data was last revised on 2017. Blood 01/06/2025 4:47 AM CDT 01/06/2025 5:27 AM CDT us Belem Menchaca MD LAB BLOOD ORDERABLES Marbella jeong Result [facility] [place] [address] * (ABNORMAL) CBC with auto differential (01/06/2025 4:47 AM CDT) WBC 4.68 3.80 - 9.90 K/cumm Hgb 6.9(L) 11.9 - 15.5 g/dL [facility] Hct 19.9(L) 35.6 - 45.5 % [facility] Plt 171 150 - 400 K/cumm [facility] MPV 11.4 9.1 - 12.3 fL [facility] RBC 1.77(L) 3.90 - 5.20 M/cumm [facility] MCV 112.4(H) 81.3 - 96.4 fL [facility] MCH 39.0(H) 27.1 - 33.3 pg [facility] MCHC 34.7 32.3 - 35.7 g/dL [facility] RDW CV 15.9(H) 11.1 - 14.9 % [facility] RDW SD 65.1(H) 35.7 - 48.1 fL [facility] NRBC abs 0.00 0.00 - 0.01 K/cumm [facility] Blood 01/06/2025 4:47 AM CDT 01/06/2025 5:27 AM CDT Belem Menchaca MD LAB BLOOD ORDERABLES Marbella l Result Performing Organization Address [facility] de Phone Number [facility] [place] [place] [address] * (ABNORMAL) aPTT (01/06/2025 4:47 AM CDT) aPTT 27(L) 28 - 38 sec Comment: Interpretive Data Heparin therapeutic range: 66.0 - 100.0 seconds. Range based on correlation with therapeutic heparin activity range of 0.3 - 0.7 Units/mL. Current interpretive data was last revised on 2023. Blood 01/06/2025 4:47 AM CDT 01/06/2025 5:43 AM CDT Belem Menchaca MD LAB BLOOD ORDERABLES Marbella l Result Performing Organization Address City/[facility] de Phone Number [facility] [place] [place] [address] * Protime-INR (01/06/2025 4:47 AM CDT) PT 12.5 9.7 - 13.0 sec INR 1.15 0.90 - 1.20 [facility] Comment: Interpretive data Oral anticoagulant therapeutic ranges: Venous thromboembolism prophylaxis or treatment: 2.0-3.0 CARDIOLOGY Standard range: 2.0-3.0 High-intensity range: 2.5-3.5 Refer to indication-specific guidelines for appropriate target ranges for prosthetic heart valve replacement. Current interpretive data was last revised on 2019. Blood 01/06/2025 4:47 AM CDT 01/06/2025 5:43 AM CDT Belem Menchaca MD LAB BLOOD ORDERABLES Marbella l Result Performing Organization Address City/[facility] Co de Phone Number [facility] [place] [address] * (ABNORMAL) CA 125 (01/06/2025 4:47 AM CDT) Pathologist [facility] [place] CA 125 ag 40.2(H) 0.0 - 38.1 units/mL Comment: Interpretive Data The [employer] CA 125 assay procedure was used. Results from different manufacturers or methods may not be comparable. Serial testing should be performed using the same method. Blood 01/06/2025 4:47 AM CDT 01/06/2025 5:27 AM CDT Belem Menchaca MD LAB BLOOD ORDERABLES Marbella l Result Performing Organization Address [facility] de Phone Number [facility] [place] [address] * Phosphorus (01/06/2025 4:47 AM CDT) Pathologist [facility] [place] Phosphorus, pl 3.3 2.3 - 4.5 mg/dL Blood 01/06/2025 4:47 AM CDT 01/06/2025 5:27 AM CDT Belem Menchaca MD LAB BLOOD ORDERABLES Marbella l Result Performing Organization Address [facility] Co de Phone Number [facility] [place] [address] * Magnesium (01/06/2025 4:47 AM CDT) Magnesium 1.4 1.4 - 2.5 mg/dL Blood 01/06/2025 4:47 AM CDT 01/06/2025 5:27 AM CDT Belem Menchaca MD LAB BLOOD ORDERABLES Marbella l Result [facility] [place] [address] * (ABNORMAL) Comprehensive metabolic panel (01/06/2025 4:47 AM CDT) Pathologist [facility] Sodium 140 135 - 145 mmol/L Potassium, pl 3.5 3.3 - 4.9 mmol/L [facility] Chloride 105 97 - 110 mmol/L [facility] CO2 25 22 - 32 mmol/L [facility] Anion gap 10 2 - 15 mmol/L [facility] BUN 14 6 - 25 mg/dL [facility] Creatinine 1.59(H) 0.60 - 1.10 mg/dL [facility] Glucose 107 70 - 199 mg/dL [facility] Comment: Interpretive Data Fasting glucose >/= 126 mg/dl is diagnostic for diabetes. Fasting is defined as no caloric intake for at least 8 hours. Fasting glucose between 100 mg/dl to 125 mg/dl is diagnostic of prediabetes. In a patient with classic symptoms of hyperglycemia or hyperglycemic crisis, a random glucose >/= 200 mg/dl is diagnostic for diabetes. In the absence of unequivocal hyperglycemia, results should be confirmed by repeat testing. The classification and Diagnosis of Diabetes Diabetes Care 202; 46: S19-S40. Current interpretive data was last revised 2022. Calcium 8.7 8.5 - 10.3 mg/dL [facility] Bilirubin, total 0.4 0.1 - 1.2 mg/dL [facility] Protein, pl 5.7(L) 6.5 - 8.5 g/dL [facility] Albumin 3.2(L) 3.5 - 5.0 g/dL [facility] Alk phos 120 40 - 130 Units/L [facility] ALT 12 7 - 45 Units/L [facility] AST 28 10 - 45 Units/L [facility] Blood 01/06/2025 4:47 AM CDT 01/06/2025 5:27 AM CDT us Belem Menchaca MD LAB BLOOD ORDERABLES Marbella l Result [facility] [place] [address] * CT Abdomen Pelvis W Contrast (01/05/2025 8:56 PM CDT) Anatomical Region Laterality Modality Body N/A Computed Tomogra phy 01/05/2025 11:3 1 PM CDT Impressions 01/06/2025 9:12 AM CDT 1. New severe right hydroureteronephrosis, likely from malignant obstruction related to new soft tissue deposit within the right mesorectal fat with tethering of small bowel loops. 2. Increased size of mesenteric deposit anterior to the aortic bifurcation and new deposit within the right mesorectal fat, concerning for disease progression. 3. New comminuted fracture deformity of the left anterior acetabulum, suspicious for an insufficiency fracture. Diffusely sclerotic appearance of the sacrum with suspicion for insufficiency fracture of the right sacral ala with extension into the right sacroiliac joint. 4. Chronic fracture deformity of the left inferior pubic ramus with new area of fragmentation more anteriorly to the prior fracture site. 5. Chronic appearing right and possible left L5 transverse process fractures. The Non Critical results were discussed with Dr Mcclure by Dr. Dupree on 01/05/25 at 11:29 PM. Dictated by: Luanne Dupree MD, PhD. The radiology attending physician has personally reviewed this study, and had reviewed and/or edited this written report and agrees with it. Electronically signed by: Jerad Dukes M.D. Narrative 01/06/2025 9:12 AM CDT EXAMINATION: Computed tomography of the abdomen and pelvis with intravenous contrast HISTORY: 69-year-old female with a history of high-grade serous adenocarcinoma of the peritoneum. The patient is currently on maintenance olaparib. Known mesenteric and peritoneal nodules without evidence of disease progression on most recent prior CT 07/2024. Presenting with vomiting. TECHNIQUE: Transaxial computed tomographic images of the abdomen and pelvis were obtained with intravenous contrast according to the standard protocol after the uneventful administration of 75 mL Opti-Ray 350 intravenous contrast. COMPARISON: Comparison is made to prior CT dated 07/19/2024. FINDINGS: There is no pulmonary consolidation, mass, or edema in the imaged lung bases. No pleural effusion or pneumothorax. No suspicious pulmonary nodules. The imaged heart size is normal. There is no pericardial effusion or pericardial wall thickening. Partially imaged right breast implants. The hepatic parenchyma is normal without focal lesion. There is no intrahepatic or extrahepatic biliary ductal dilation. Postsurgical changes of cholecystectomy. The portal, splenic, and superior mesenteric veins are patent. The spleen, pancreas, and adrenal glands are unremarkable. There is asymmetric enhancement of the kidneys, with lower attenuation of the right renal cortex. There is severe new right hydroureteronephrosis. There is no left-sided hydronephrosis. The urinary bladder is mildly distended with a large volume of intraluminal gas. Postsurgical changes of rectosigmoid resection, hysterectomy, and bilateral salpingo-oophorectomy. There is a new mesenteric deposit within the right mesorectal fat with tethering of adjacent small bowel loops and the right ureter. The central portion of the stent deposited is fluid attenuation. It measures approximately 3.8 x 3.4 x 3.7 cm (series 2, image 151; series 5, image 79). The stomach and small bowel are decompressed. There is no evidence of bowel obstruction. The appendix is normal. Mesenteric deposit anterior to the aortic bifurcation is increased in size and measures 1.5 x 1.3 cm, previously 8 mm. No suspicious abdominal or pelvic lymphadenopathy. The course and caliber of the abdominal aorta and its branching vessels are normal. Chronic fracture deformity of the left inferior pubic ramus, with new area of fragmentation more anteriorly to the prior fracture site. There is a new comminuted fracture deformity of the left anterior acetabulum. New sclerotic appearance of the sacrum with a fracture of the right sacral ala with extension into the right sacroiliac joint. Chronic appearing right and possible left L5 transverse process fractures. Procedure Note Jerad Dukes MD - 01/06/2025 EXAMINATION: Computed tomography of the abdomen and pelvis with intravenous contrast HISTORY: 69-year-old female with a history of high-grade serous adenocarcinoma of the peritoneum. The patient is currently on maintenance olaparib. Known mesenteric and peritoneal nodules without evidence of disease progression on most recent prior CT 07/2024. Presenting with vomiting. TECHNIQUE: Transaxial computed tomographic images of the abdomen and pelvis were obtained with intravenous contrast according to the standard protocol after the uneventful administration of 75 mL Opti-Ray 350 intravenous contrast. COMPARISON: Comparison is made to prior CT dated 07/19/2024. FINDINGS: There is no pulmonary consolidation, mass, or edema in the imaged lung bases. No pleural effusion or pneumothorax. No suspicious pulmonary nodules. The imaged heart size is normal. There is no pericardial effusion or pericardial wall thickening. Partially imaged right breast implants. The hepatic parenchyma is normal without focal lesion. There is no intrahepatic or extrahepatic biliary ductal dilation. Postsurgical changes of cholecystectomy. The portal, splenic, and superior mesenteric veins are patent. The spleen, pancreas, and adrenal glands are unremarkable. There is asymmetric enhancement of the kidneys, with lower attenuation of the right renal cortex. There is severe new right hydroureteronephrosis. There is no left-sided hydronephrosis. The urinary bladder is mildly distended with a large volume of intraluminal gas. Postsurgical changes of rectosigmoid resection, hysterectomy, and bilateral salpingo-oophorectomy. There is a new mesenteric deposit within the right mesorectal fat with tethering of adjacent small bowel loops and the right ureter. The central portion of the stent deposited is fluid attenuation. It measures approximately 3.8 x 3.4 x 3.7 cm (series 2, image 151; series 5, image 79). The stomach and small bowel are decompressed. There is no evidence of bowel obstruction. The appendix is normal. Mesenteric deposit anterior to the aortic bifurcation is increased in size and measures 1.5 x 1.3 cm, previously 8 mm. No suspicious abdominal or pelvic lymphadenopathy. The course and caliber of the abdominal aorta and its branching vessels are normal. Chronic fracture deformity of the left inferior pubic ramus, with new area of fragmentation more anteriorly to the prior fracture site. There is a new comminuted fracture deformity of the left anterior acetabulum. New sclerotic appearance of the sacrum with a fracture of the right sacral ala with extension into the right sacroiliac joint. Chronic appearing right and possible left L5 transverse process fractures. IMPRESSION: 1. New severe right hydroureteronephrosis, likely from malignant obstruction related to new soft tissue deposit within the right mesorectal fat with tethering of small bowel loops. 2. Increased size of mesenteric deposit anterior to the aortic bifurcation and new deposit within the right mesorectal fat, concerning for disease progression. 3. New comminuted fracture deformity of the left anterior acetabulum, suspicious for an insufficiency fracture. Diffusely sclerotic appearance of the sacrum with suspicion for insufficiency fracture of the right sacral ala with extension into the right sacroiliac joint. 4. Chronic fracture deformity of the left inferior pubic ramus with new area of fragmentation more anteriorly to the prior fracture site. 5. Chronic appearing right and possible left L5 transverse process fractures. The Non Critical results were discussed with Dr Mcclure by Dr. Dupree on 01/05/25 at 11:29 PM. Dictated by: Luanne Dupree MD, PhD. The radiology attending physician has personally reviewed this study, and had reviewed and/or edited this written report and agrees with it. Electronically signed by: Jerad Dukes M.D. us Anthony Clay MD IMG CT PROCEDURES Final Result * Troponin I high-sensitivity 2-hour (01/05/2025 8:06 PM CDT) Trop I hs 6 <=17 ng/L Comment: Interpretive Data For further hscTnI resources including the diagnostic algorithm and an aid in interpretation, copy and paste this link: [email or web address]/[email or web address] Current Interpretive Data last revised 2020. Trop I hs delta 1 ng/L JYOTI SCANLON Trop I hs interp Insignificant JYOTI [place] Blood 01/05/2025 8:06 PM CDT 01/05/2025 8:18 PM CDT us Juventino Rousseau MD LAB BLOOD ORDERABLES Final R esult JYOTI ZUNIGA [facility] Department [place] [address] * Troponin I high-sensitivity series (baseline, 2hr, 4hr, 6hr) (01/05/2025 5:49 PM CDT) Trop I hs 5 <=17 ng/L Comment: Interpretive Data For further hscTnI resources including the diagnostic algorithm and an aid in interpretation, copy and paste this link: [email or web address] Current Interpretive Data last revised 2020. Blood 01/05/2025 5:49 PM CDT 01/05/2025 6:02 PM CDT us Anthony Clay MD LAB BLOOD ORDERABLES Final Res ult J[facility]OTI [facility] Department [place] [address] * (ABNORMAL) eGFR (01/05/2025 5:49 PM CDT) eGFR 30(L) >=60 mL/min/1. 73 m2 Comment: Interpretive Data Reference Interval Normal >/= 90 mL/min/1.73m2 Mildly decreased* 60 - 89 mL/min/1.73m2 Mildly to moderately decreased 45 - 59 mL/min/1.73m2 Moderately to severely decreased 30 - 44 mL/min/1.73m2 Severely decreased 15 - 29 mL/min/1.73m2 Kidney Failure < 15 mL/min/1.73m2 *Relative to young adult level Estimated glomerular filtration rate is determined by the 2020 CKD-EPI equation recommended by the National Kidney Foundation (A Unifying Approach to GFR Estimation: Recommendations of the NKF-ASK Task Force on Reassessing the Inclusion of Race in Diagnosing Kidney Disease, JASN 2020). The CKD-EPI equation should not be used for patients with unstable renal function and has not been validated in children and those over 70. Current interpretive data was last reviewed 2021. Blood 01/05/2025 5:49 PM CDT 01/05/2025 6:02 PM CDT us Juventino Rousseau MD LAB BLOOD ORDERABLES Final R esult [facility] [place] [address] * (ABNORMAL) Differential, auto (01/05/2025 5:49 PM CDT) Neutrophil abs 3.58 1.50 - 6.50 K/cumm Imm gran abs 0.02 0.00 - 0.10 K/cumm [facility] Lymphocyte abs 0.67(L) 0.80 - 3.30 K/cumm [facility] Monocyte abs 0.56 0.20 - 0.80 K/cumm [facility] Eosinophil abs 0.04 0.00 - 0.50 K/cumm [facility] Basophil abs 0.02 0.00 - 0.10 K/cumm [facility] Neutrophil pct 73.2 % [facility] Comment: Interpretive Data Percent cell count reference ranges are not reported, since discordance with absolute values may lead to misinterpretation of CBC data. Current Interpretive Data was last revised on 2017. Imm gran pct 0.4 % [facility] Comment: Interpretive Data Percent cell count reference ranges are not reported, since discordance with absolute values may lead to misinterpretation of CBC data. Current Interpretive Data was last revised on 2017. Lymphocyte pct 13.7 % [facility] Comment: Interpretive Data Percent cell count reference ranges are not reported, since discordance with absolute values may lead to misinterpretation of CBC data. Current Interpretive Data was last revised on 2017. Monocyte pct 11.5 % [facility] Comment: Interpretive Data Percent cell count reference ranges are not reported, since discordance with absolute values may lead to misinterpretation of CBC data. Current Interpretive Data was last revised on 2017. Eosinophil pct 0.8 % [facility] Comment: Interpretive Data Percent cell count reference ranges are not reported, since discordance with absolute values may lead to misinterpretation of CBC data. Current Interpretive Data was last revised on 2017. Basophil pct 0.4 % [facility] Comment: Interpretive Data Percent cell count reference ranges are not reported, since discordance with absolute values may lead to misinterpretation of CBC data. Current Interpretive Data was last revised on 2017. Blood 01/05/2025 5:49 PM CDT 01/05/2025 6:03 PM CDT us Juventino Rousseau MD LAB BLOOD ORDERABLES Final R esult [facility] [place] [address] * (ABNORMAL) CBC with auto differential (01/05/2025 5:49 PM CDT) WBC 4.89 3.80 - 9.90 K/cumm Hgb 7.7(L) 11.9 - 15.5 g/dL [facility] Hct 22.3(L) 35.6 - 45.5 % [facility] Plt 215 150 - 400 K/cumm [facility] MPV 10.9 9.1 - 12.3 fL [facility] RBC 2.01(L) 3.90 - 5.20 M/cumm [facility] MCV 110.9(H) 81.3 - 96.4 fL [facility] MCH 38.3(H) 27.1 - 33.3 pg [facility] MCHC 34.5 32.3 - 35.7 g/dL [facility] RDW CV 15.7(H) 11.1 - 14.9 % [facility] RDW SD 63.2(H) 35.7 - 48.1 fL [facility] NRBC abs 0.00 0.00 - 0.01 K/cumm [facility] Blood Venous blood specimen / Unknown 01/05/2025 5:49 PM CDT 01/05/2025 6:03 PM CDT us Anthony Clay MD LAB BLOOD ORDERABLES Final Res ult JYOTI [facility] Department [place] [address] * Lipase (01/05/2025 5:49 PM CDT) Lipase 20 10 - 99 Units/L Blood 01/05/2025 5:49 PM CDT 01/05/2025 6:02 PM CDT us Leona Mcclure MD LAB BLOOD ORDERABLE S Final Result Performing Organization Address [facility]/ZIP Co de Phone Number [facility] [place] [address] * (ABNORMAL) Comprehensive metabolic panel (01/05/2025 5:49 PM CDT) Pathologist [facility] [place] Sodium 137 135 - 145 mmol/L Potassium, pl 4.1 3.3 - 4.9 mmol/L [facility] Chloride 101 97 - 110 mmol/L [facility] CO2 24 22 - 32 mmol/L [facility] Anion gap 12 2 - 15 mmol/L [facility] BUN 14 6 - 25 mg/dL [facility] Creatinine 1.83(H) 0.60 - 1.10 mg/dL [facility] Glucose 93 70 - 199 mg/dL [facility] Comment: Interpretive Data Fasting glucose >/= 126 mg/dl is diagnostic for diabetes. Fasting is defined as no caloric intake for at least 8 hours. Fasting glucose between 100 mg/dl to 125 mg/dl is diagnostic of prediabetes. In a patient with classic symptoms of hyperglycemia or hyperglycemic crisis, a random glucose >/= 200 mg/dl is diagnostic for diabetes. In the absence of unequivocal hyperglycemia, results should be confirmed by repeat testing. The classification and Diagnosis of Diabetes Diabetes Care 2021; 46: S19-S40. Current interpretive data was last revised 2022. Calcium 9.2 8.5 - 10.3 mg/dL [facility] Bilirubin, total 0.4 0.1 - 1.2 mg/dL [facility] Protein, pl 6.3(L) 6.5 - 8.5 g/dL [facility] Albumin 3.5 3.5 - 5.0 g/dL [facility] Alk phos 136(H) 40 - 130 Units/L [facility] ALT 11 7 - 45 Units/L [facility] AST 23 10 - 45 Units/L [facility] Blood 01/05/2025 5:49 PM CDT 01/05/2025 6:02 PM CDT us Anthony Clay MD LAB BLOOD ORDERABLES Final Res ult [facility] [place] [address] * XR Chest Pa Lateral 2 Views (01/05/2025 1:20 PM CDT) Anatomical Region Laterality Modality Body, Chest N/A Computed Radiogr aphy 01/05/2025 2:36 PM CDT Impressions 01/05/2025 2:36 PM CDT Right internal jugular central venous port catheter with tip terminating within the superior vena cava. Multiple surgical clips overlie the right axilla and right upper lung. Postsurgical changes of right mastectomy. Surgical clips overlie the right upper quadrant. Redemonstration of impacted right humeral head fracture. No pneumothorax, pleural effusion, or consolidation. Normal cardiomediastinal silhouette. Mild distended bowel in the upper abdomen is not fully assessed. This could be further evaluated with dedicated abdominal radiograph or CT abdomen and pelvis if clinically indicated. Dictated by: Remi Quick M.D. The radiology attending physician has personally reviewed this study, and had reviewed and/or edited this written report and agrees with it. Electronically signed by: Shayne Davis M.D. Narrative 01/05/2025 2:36 PM CDT EXAMINATION: XR CHEST PA LATERAL 2 VIEWS HISTORY: 69-year-old female with epigastric pain radiates to her chest. History of stomach and ovarian cancer. COMPARISON: CT 07/19/2024, multiple prior radiographs most recently 11/13/2021 Procedure Note Shayne Davis MD - 01/05/2025 EXAMINATION: XR CHEST PA LATERAL 2 VIEWS HISTORY: 69-year-old female with epigastric pain radiates to her chest. History of stomach and ovarian cancer. COMPARISON: CT 07/19/2024, multiple prior radiographs most recently 11/13/2021 IMPRESSION: Right internal jugular central venous port catheter with tip terminating within the superior vena cava. Multiple surgical clips overlie the right axilla and right upper lung. Postsurgical changes of right mastectomy. Surgical clips overlie the right upper quadrant. Redemonstration of impacted right humeral head fracture. No pneumothorax, pleural effusion, or consolidation. Normal cardiomediastinal silhouette. Mild distended bowel in the upper abdomen is not fully assessed. This could be further evaluated with dedicated abdominal radiograph or CT abdomen and pelvis if clinically indicated. Dictated by: Remi Quick M.D. The radiology attending physician has personally reviewed this study, and had reviewed and/or edited this written report and agrees with it. Electronically signed by: Shayne Davis M.D. Anthony Clay MD IMG XR PROCEDURES Final Result * ECG 12-LEAD (01/05/2025 1:08 PM CDT) Narrative [facility] - 01/05/2025 1:08 PM CDT Branden Almendarez MD 01/05/2025 1:09 PM ECG 12 lead Date/Time: 01/05/2025 1:08 PM Performed by: Branden Almendarez MD Authorized by: Juventino Rousseau MD Rate: ECG rate: 97 ECG rate assessment: normal Rhythm: Rhythm: sinus rhythm Ectopy: Ectopy: none QRS: QRS axis: Normal Conduction: Conduction: normal ST segments: ST segments: Normal T waves: T waves: normal Previous ECG: Previous ECG: Compared to current Date of previous EC11/13/2021 Similarity: No change Interpretation: Interpretation: non-specific Recommended Follow-up: Recommended follow up: further workup in the ED Comments: Chest pain and NV Procedure Note Branden Almendarez MD - 01/05/2025 1:08 PM CDT Procedure ECG 12 lead Date/Time: 01/05/2025 1:08 PM Performed by: Branden Almendarez MD Authorized by: Juventino Rousseau MD Rate: ECG rate: 97 ECG rate assessment: normal Rhythm: Rhythm: sinus rhythm Ectopy: Ectopy: none QRS: QRS axis: Normal Conduction: Conduction: normal ST segments: ST segments: Normal T waves: T waves: normal Previous ECG: Previous ECG: Compared to current Date of previous EC11/13/2021 Similarity: No change Interpretation: Interpretation: non-specific Recommended Follow-up: Recommended follow up: further workup in the ED Comments: Chest pain and NV Branden Almendarez MD 01/05/25 1039 us Anthony Clay MD ECG ORDERABLES Final Result [facility] * (ABNORMAL) eGFR (01/01/2025 1:57 PM CDT) eGFR 30(L) >=60 mL/min/1. 73 m2 Comment: Interpretive Data Reference Interval Normal >/= 90 mL/min/1.73m2 Mildly decreased* 60 - 89 mL/min/1.73m2 Mildly to moderately decreased 45 - 59 mL/min/1.73m2 Moderately to severely decreased 30 - 44 mL/min/1.73m2 Severely decreased 15 - 29 mL/min/1.73m2 Kidney Failure < 15 mL/min/1.73m2 *Relative to young adult level Estimated glomerular filtration rate is determined by the 2020 CKD-EPI equation recommended by the National Kidney Foundation (A Unifying Approach to GFR Estimation: Recommendations of the NKF-ASK Task Force on Reassessing the Inclusion of Race in Diagnosing Kidney Disease, JASN 2020). The CKD-EPI equation should not be used for patients with unstable renal function and has not been validated in children and those over 70. Current interpretive data was last reviewed 2021. Blood 01/01/2025 1:57 PM CDT 01/01/2025 2:27 PM CDT us Belem Menchaca MD LAB BLOOD ORDERABLES Marbella jeong Result [facility] [place] [address] * (ABNORMAL) Differential, auto (01/01/2025 1:57 PM CDT) Neutrophil abs 3.49 1.50 - 6.50 K/cumm Imm gran abs 0.02 0.00 - 0.10 K/cumm [facility] Lymphocyte abs 0.73(L) 0.80 - 3.30 K/cumm [facility] Monocyte abs 0.65 0.20 - 0.80 K/cumm [facility] Eosinophil abs 0.14 0.00 - 0.50 K/cumm [facility] Basophil abs 0.04 0.00 - 0.10 K/cumm [facility] Neutrophil pct 68.8 % [facility] Comment: Interpretive Data Percent cell count reference ranges are not reported, since discordance with absolute values may lead to misinterpretation of CBC data. Current Interpretive Data was last revised on 2017. Imm gran pct 0.4 % [facility] Comment: Interpretive Data Percent cell count reference ranges are not reported, since discordance with absolute values may lead to misinterpretation of CBC data. Current Interpretive Data was last revised on 2017. Lymphocyte pct 14.4 % [facility] Comment: Interpretive Data Percent cell count reference ranges are not reported, since discordance with absolute values may lead to misinterpretation of CBC data. Current Interpretive Data was last revised on 2017. Monocyte pct 12.8 % [facility] Comment: Interpretive Data Percent cell count reference ranges are not reported, since discordance with absolute values may lead to misinterpretation of CBC data. Current Interpretive Data was last revised on 2017. Eosinophil pct 2.8 % [facility] Comment: Interpretive Data Percent cell count reference ranges are not reported, since discordance with absolute values may lead to misinterpretation of CBC data. Current Interpretive Data was last revised on 2017. Basophil pct 0.8 % [facility] Comment: Interpretive Data Percent cell count reference ranges are not reported, since discordance with absolute values may lead to misinterpretation of CBC data. Current Interpretive Data was last revised on 2017. Blood 01/01/2025 1:57 PM CDT 01/01/2025 2:27 PM CDT Belem Menchaca MD LAB BLOOD ORDERABLES Marbella l Result Performing Organization Address [facility] Co de Phone Number [facility] [place] [place] [address] * (ABNORMAL) CBC with auto differential (01/01/2025 1:57 PM CDT) WBC 5.07 3.80 - 9.90 K/cumm Hgb 8.2(L) 11.9 - 15.5 g/dL [facility] Hct 24.3(L) 35.6 - 45.5 % [facility] Plt 228 150 - 400 K/cumm [facility] MPV 11.2 9.1 - 12.3 fL [facility] RBC 2.14(L) 3.90 - 5.20 M/cumm [facility] MCV 113.6(H) 81.3 - 96.4 fL [facility] MCH 38.3(H) 27.1 - 33.3 pg [facility] MCHC 33.7 32.3 - 35.7 g/dL [facility] RDW CV 15.9(H) 11.1 - 14.9 % [facility] RDW SD 66.4(H) 35.7 - 48.1 fL [facility] NRBC abs 0.02(H) 0.00 - 0.01 K/cumm [facility] Blood 01/01/2025 1:57 PM CDT 01/01/2025 2:27 PM CDT Belem Menchaca MD LAB BLOOD ORDERABLES Marbella l Result Performing Organization Address [facility]/ZIP Co de Phone Number [facility] [place] [place] [address] * (ABNORMAL) Comprehensive metabolic panel (01/01/2025 1:57 PM CDT) Sodium 139 135 - 145 mmol/L Potassium, pl 4.6 3.3 - 4.9 mmol/L [facility] Chloride 104 97 - 110 mmol/L [facility] CO2 26 22 - 32 mmol/L [facility] Anion gap 9 2 - 15 mmol/L [facility] BUN 11 6 - 25 mg/dL [facility] Creatinine 1.84(H) 0.60 - 1.10 mg/dL [facility] Glucose 105 70 - 199 mg/dL [facility] Comment: Interpretive Data Fasting glucose >/= 126 mg/dl is diagnostic for diabetes. Fasting is defined as no caloric intake for at least 8 hours. Fasting glucose between 100 mg/dl to 125 mg/dl is diagnostic of prediabetes. In a patient with classic symptoms of hyperglycemia or hyperglycemic crisis, a random glucose >/= 200 mg/dl is diagnostic for diabetes. In the absence of unequivocal hyperglycemia, results should be confirmed by repeat testing. The classification and Diagnosis of Diabetes Diabetes Care 202; 46: S19-S40. Current interpretive data was last revised 2022. Calcium 9.5 8.5 - 10.3 mg/dL [facility] Bilirubin, total 0.3 0.1 - 1.2 mg/dL [facility] Protein, pl 6.3(L) 6.5 - 8.5 g/dL [facility] Albumin 3.6 3.5 - 5.0 g/dL [facility] Alk phos 146(H) 40 - 130 Units/L [facility] ALT 10 7 - 45 Units/L [facility] AST 25 10 - 45 Units/L [facility] Blood 01/01/2025 1:57 PM CDT 01/01/2025 2:27 PM CDT us Belem Menchaca MD LAB BLOOD ORDERABLES Marbella l Result [facility] [place] [address] * (ABNORMAL) eGFR (12/05/2024 11:21 AM CDT) Pathologist [facility] [place] eGFR 32(L) >=60 mL/min/1. 73 m2 Comment: Interpretive Data Reference Interval Normal >/= 90 mL/min/1.73m2 Mildly decreased* 60 - 89 mL/min/1.73m2 Mildly to moderately decreased 45 - 59 mL/min/1.73m2 Moderately to severely decreased 30 - 44 mL/min/1.73m2 Severely decreased 15 - 29 mL/min/1.73m2 Kidney Failure < 15 mL/min/1.73m2 *Relative to young adult level Estimated glomerular filtration rate is determined by the 2020 CKD-EPI equation recommended by the National Kidney Foundation (A Unifying Approach to GFR Estimation: Recommendations of the NKF-ASK Task Force on Reassessing the Inclusion of Race in Diagnosing Kidney Disease, JASN 2020). The CKD-EPI equation should not be used for patients with unstable renal function and has not been validated in children and those over 70. Current interpretive data was last reviewed 2021. Blood 12/05/2024 11:2 1 AM CDT 12/05/2024 12:00 PM CDT us Belem Menchaca MD LAB BLOOD ORDERABLES Marbella jeong Result [facility] [place] [address] * (ABNORMAL) Differential, auto (12/05/2024 11:21 AM CDT) Pathologist [facility] [place] Neutrophil abs 6.5 1.5 - 6.5 K/cumm Imm gran abs 0.0 0.0 - 0.1 K/cumm [facility] Lymphocyte abs 0.5(L) 0.8 - 3.3 K/cumm [facility] Monocyte abs 0.5 0.2 - 0.8 K/cumm [facility] Eosinophil abs 0.1 0.0 - 0.5 K/cumm [facility] Basophil abs 0.0 0.0 - 0.1 K/cumm [facility] Neutrophil pct 84.4 % [facility] Comment: Interpretive Data Percent cell count reference ranges are not reported, since discordance with absolute values may lead to misinterpretation of CBC data. Current Interpretive Data was last revised on 2017. Imm gran pct 0.5 % [facility] Comment: Interpretive Data Percent cell count reference ranges are not reported, since discordance with absolute values may lead to misinterpretation of CBC data. Current Interpretive Data was last revised on 2017. Lymphocyte pct 6.7 % [facility] Comment: Interpretive Data Percent cell count reference ranges are not reported, since discordance with absolute values may lead to misinterpretation of CBC data. Current Interpretive Data was last revised on 2017. Monocyte pct 6.7 % [facility] Comment: Interpretive Data Percent cell count reference ranges are not reported, since discordance with absolute values may lead to misinterpretation of CBC data. Current Interpretive Data was last revised on 2017. Eosinophil pct 1.2 % [facility] Comment: Interpretive Data Percent cell count reference ranges are not reported, since discordance with absolute values may lead to misinterpretation of CBC data. Current Interpretive Data was last revised on 2017. Basophil pct 0.5 % [facility] Comment: Interpretive Data Percent cell count reference ranges are not reported, since discordance with absolute values may lead to misinterpretation of CBC data. Current Interpretive Data was last revised on 2017. Blood 12/05/2024 11:2 1 AM CDT 12/05/2024 11:57 AM CDT us Belem Menchaca MD LAB BLOOD ORDERABLES Marbella l Result [facility] [facility] Department of Laboratories [place], [place] [id number] * (ABNORMAL) CBC with auto differential (12/05/2024 11:21 AM CDT) WBC 7.6 3.8 - 9.9 K/cumm Hgb 8.8(L) 11.9 - 15.5 g/dL [facility] Hct 25.3(L) 35.6 - 45.5 % [facility] Plt 278 150 - 400 K/cumm [facility] MPV 10.9 9.1 - 12.3 fL [facility] RBC 2.29(L) 3.90 - 5.20 M/cumm [facility] MCV 110.5(H) 81.3 - 96.4 fL [facility] MCH 38.4(H) 27.1 - 33.3 pg [facility] MCHC 34.8 32.3 - 35.7 g/dL [facility] RDW CV 14.6 11.1 - 14.9 % [facility] RDW SD 59.4(H) 35.7 - 48.1 fL [facility] NRBC abs 0.03(H) 0.00 - 0.01 K/cumm [facility] Blood 12/05/2024 11:2 1 AM CDT 12/05/2024 11:57 AM CDT Belem Menchaca MD LAB BLOOD ORDERABLES Marbella l Result [facility] Department [place] [address] * (ABNORMAL) Comprehensive metabolic panel (12/05/2024 11:21 AM CDT) Sodium 140 135 - 145 mmol/L Potassium, pl 4.4 3.3 - 4.9 mmol/L [facility] Chloride 103 97 - 110 mmol/L [facility] CO2 25 22 - 32 mmol/L [facility] Anion gap 12 2 - 15 mmol/L [facility] BUN 11 6 - 25 mg/dL [facility] Creatinine 1.70(H) 0.60 - 1.10 mg/dL [facility] Glucose 102 70 - 199 mg/dL [facility] Comment: Interpretive Data Fasting glucose >/= 126 mg/dl is diagnostic for diabetes. Fasting is defined as no caloric intake for at least 8 hours. Fasting glucose between 100 mg/dl to 125 mg/dl is diagnostic of prediabetes. In a patient with classic symptoms of hyperglycemia or hyperglycemic crisis, a random glucose >/= 200 mg/dl is diagnostic for diabetes. In the absence of unequivocal hyperglycemia, results should be confirmed by repeat testing. The classification and Diagnosis of Diabetes Diabetes Care 202; 46: S19-S40. Current interpretive data was last revised 2022. Calcium 10.1 8.5 - 10.3 mg/dL [facility] Bilirubin, total 0.4 0.1 - 1.2 mg/dL [facility] Protein, pl 7.3 6.5 - 8.5 g/dL [facility] Albumin 4.1 3.5 - 5.0 g/dL [facility] Alk phos 159(H) 40 - 130 Units/L [facility] ALT 10 7 - 45 Units/L [facility] AST 19 10 - 45 Units/L [facility] Blood 12/05/2024 11:2 1 AM CDT 12/05/2024 11:57 AM CDT Belem Menchaca MD LAB BLOOD ORDERABLES Marbella l Result [facility] [place] [address] * Screening Mammogram Left W Pardeep Unilateral Only (04/28/2024 2:23 PM CDT) Anatomical Region Laterality Modality Breast Left Mammography Narrative 05/01/2024 3:22 PM CDT Mammogram Technique: Left Breast Digital Breast Tomosynthesis, Unilateral C-view 2D Screening mammogram. Views obtained: left craniocaudal and left mediolateral oblique. Computer Aided Detection was performed. Mammogram Findings: The present examination has been compared to prior imaging studies performed at [facility] on 12/28/2018, and at [facility] on 03/17/2022 and 03/24/2023. There are scattered areas of fibroglandular density. There is no suspicious abnormality in the left breast. Patient status post contralateral mastectomy for personal history of breast cancer. Impression: There is no mammographic evidence of malignancy. Annual screening mammography is recommended. OVERALL FINAL ASSESSMENT: BI-RADS CATEGORY 1: Negative. Procedure Note Lilia Orozco MD - 05/01/2024 Mammogram Technique: Left Breast Digital Breast Tomosynthesis, Unilateral C-view 2D Screening mammogram. Views obtained: left craniocaudal and left mediolateral oblique. Computer Aided Detection was performed. Mammogram Findings: The present examination has been compared to prior imaging studies performed at [facility] on 12/28/2018, [facility] on 03/17/2022 and 03/24/2023. There are scattered areas of fibroglandular density. There is no suspicious abnormality in the left breast. Patient status post contralateral mastectomy for personal history ofbreast cancer. Impression: There is no mammographic evidence of malignancy. Annual screening mammography is recommended. OVERALL FINAL ASSESSMENT: BI-RADS CATEGORY 1: Negative. Result [facility] Lilo Boucher NP IMG MAMMO PROCEDURES Final Result from Last 3 Months or Most Recently Relevant to Health Maintenance Insurance [facility] MEDICARE [facility] AET SIG [id number] [facility]IC[facility] CONTR[facility] SECONDARY MEDICARE CONTRA [facility] SECONDARY Advance Directives For more information, please contact: [phone] * Full Code (Latest Code Status on File) Date Activated Date Inactivated Comments 01/06/2025 4:37 AM 01/08/2025 4:48 PM * Full Code Date Activated Date Inactivated Comments 11/13/2021 12:04 PM 11/15/2021 6:21 PM * Full Code Date Activated Date Inactivated Comments 06/12/2020 11:27 AM 06/12/2020 5:37 PM * Full Code Date Activated Date Inactivated Comments 06/05/2020 8:57 AM 06/05/2020 2:44 PM * Full Code Date Activated Date Inactivated Comments 05/15/2020 8:01 PM 05/29/2020 8:17 PM Care Teams Flight Engineer Instructor Relationship Specialty [place] [address] [id number] PCP - General Nurse Practitioner 01/05/25 Suhail Marie MD [address] [place], [place] [id number] Internal Medicine 07/28/23 Robin Pimentel MD [address] [place], [place] [id number] Internal Medicine 07/28/23
--- OUTSIDE RECORDS SUMMARY | 2025-02-11 18:16 | XMS_ITS | Encounter Summary ---
Author Organization [facility] Healthcare Address [address] [place] [address] Care Team Providers Care Heel Builder Machine Name Role Phone Unavailable Primary Care Provider [...] Expiration Date Visits Re quested Visits Authorized [id number] Closed 02/02/2022 03/04/2023 1 1 Encounter Details Date Type Department Care Team (Late st Contact Info) Description 04/09/2015 Hospital Encounter [facility] [address] [place] [address] Social History Tobacco Use Types Packs/Day [...] on file Legal Sex Female 4:24 AM ATHLETIC AGENT Gender Identity Not on file Sexual Orientation [...] and have not been reviewed by [facility] Radiology. There will be no report generated by a [facility] Radiologist. Narrative [facility] - 02/02/2022 3:03 PM CDT EXAMINATION: Images For Reference Purposes Only us Patricia Powell NP IMG MAMMO PROCEDURES Fin al Result [facility] documented in this encounter Visit Diagnoses Not on filedocumented in this encounter Additional Health Concerns Infection Onset Date Last Indicated Resolved Time COVID: Suspected 11/13/2021 11/13/2021 11/13/2021 2:41 PM ATHLETIC AGENT documented as of this encounter
--- OUTSIDE RECORDS SUMMARY | 2025-02-11 18:16 | XMS_ITS | Encounter Summary ---
Author Organization [facility] Address [address] [place] [address] Phone Care Team Providers Care Embedded Software Engineer Name Role Phone Laurita German Primary Care Provider [phone] Unknown, Notinfile Unavailable Unavailable Suhail Marie MD Unavailable [phone] Robin Pimentel MD Unavailable Tsering Hoff Primary Care Provider [phone] Ceci Garcia STRAWBERRY GROWER Primary Care Provide r Encounter Details Date Type Department Care Team (Late st Contact Info) Description 05/29/2020 Documentation [facility] [address] [place] [address] Dilan Marroquin RPh Social History Tobacco Use Types Packs/Day Years [...] on file Legal 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 Gender Identity Not on file Sexual Orientation Not on file 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 file Not on file Not on file documented as of this encounter Plan of Treatment Not on file documented as of this encounter Visit Diagnoses Not on filedocumented in this encounter Additional Health Concerns Infection Onset Date Last Indicated Resolved Time COVID: Suspected 11/13/2021 11/13/2021 11/13/2021 2:41 PM TICKET MAKER documented as of this encounter Care Teams Embedded Software Engineer Relationship Specialty Start Date End Date Laurita German PA PCP - General 04/18/20 04/19/24 [place] [address] [id number] PCP - General Physician Granite Cutter Apprentice 04/20/24 01/04/25 [place] [address] [employer] [facility] [address] [place] [id number] PCP - General Nurse Practitioner 01/05/25 Unknown, Notinfile Referring Physician 10/17/20 07/27/23 Suhail Marie MD [address] [place] [address] Internal Medicine 07/28/23 Robin Pimentel MD [address] [place], [place] [phone] Internal Medicine 07/28/23 documented as of this encounter
--- OUTSIDE RECORDS SUMMARY | 2025-02-11 18:16 | XMS_ITS | Clinical Summary ---
Author Organization [facility] Address [address], [facility] [address] [place] [address] Phone Care Team Providers Care Scout Professional Sports Name Role Phone Laurita German Primary Care Provider [phone] Social History Tobacco Use Types Packs/Day Years Used Date Smoking Tobacco: Never Assessed Comments Unknown Sex and Gender Information Value Date Recorded Sex Assigned at Not on file Legal Sex Female 8:17 AM CDT Gender Identity Not on file Sexual Orientation Not on file Plan of Treatment Not on file Insurance [employer] Care Teams Scout Professional Sports Relationship Specialty Start Date End Date Laurita German, FLACO PCP - General Physician Autocad Designer 04/03/20
--- OUTSIDE RECORDS SUMMARY | 2025-02-11 18:16 | XMS_ITS | Encounter Summary ---
Author Organization [facility] Healthcare Address [address] [place] [address] Care Team Providers Care Warehouse Order Picker Name Role Phone Suhail Marie MD Unavailable [phone] Robin Pimentel MD Unavailable [phone] Tsering Hoff Primary Care Provider [phone] Ceci Garcia NP Primary Care Provide r Encounter Details Date Type Department Care Team (Late st Contact Info) Description 06/05/[address] [facility] [address] [facility] [address] [place] [address] Mary Jennings MD [address] [facility] [place] [address] Social History Tobacco Use Types Packs/Day Years Used Date Smoking Tobacco: Former Cigarettes Q uit: 1991 Smokeless Tobacco: Never Alcohol Use Standard Drinks/Week Comments Not Currently 0 (1 standard drink = 0.6 oz pur e alcohol) rarely AUDIT-C Answer Date Recorded Q1: How often do you have a drink containing alc ohol? Never 10/29/2021 Average Number of Drinks Not on file 022 Q3: How often do you have si x or more drinks on one occasion? Never 10/29/2021 Hunger Vital Sign Answer Date Recorded Within [...] things needed for daily living? No 02/06/2021 Education Answer Date Recorded What is the highest level of school you have completed or the highest degree you have received? 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 Patient has a history of red blood cell transfusion, most recent in August 2023. Testing Information: The antibody screen was positive. Antibody identification demonstrated antibodies against the Jk(a)antigen in the patient???s plasma. Additional testing was performed. A direct antiglobulin test (MARLY) was negative. Phenotyping showed that the patient's red blood cells are Jk(a) antigen negative. All other common, clinically significant antibodies have been ruled out. Clinical Relevance: Antibodies against the Jk(a) antigen(s) generally have been implicated in hemolytic transfusion reactions with extravascular hemolysis. Therefore, anti- Jk(a) antibodies are generally considered to beclinically significant. Presence of this antibody requires that additional testing be performed and this may result in additional time for blood product selection when ordered for transfusion. Therapeutic Relevance: ABO/Rh and crossmatch compatible red blood cell units negative for the Jk(a) antigen will be provided for future transfusions. Approximately 23% ABO/Rh compatible units from the donor population are expected to be compatible. Approximately 4-5 units will need to be screened to find one compatible unit for this patient. Contact Information: Please contact the [facility] Transfusion Medicine Service at (option 1) with any questions. This report has been prepared by: Mary Jennings MD PhD Attestation: I have personally reviewed the antibody result and agree with the interpretation contained in this written blood bank report. Marla Tracy MD PhD documented in this encounter Plan of Treatment Not on file documented as of this encounter Visit Diagnoses Not on filedocumented in this encounter Care Teams Warehouse Order Picker Relationship Specialty [place] [address] [facility] [address] [address] PCP - General Physician Structural Steel Trades Worker 04/20/24 01/04/25 [place] [address] [facility] [address] [address] PCP - General Nurse Practitioner 01/05/25 Suhail Marie MD [address] [place] [address] Internal Medicine 07/28/23 Robin Pimentel MD [address] [place] [address] Internal Medicine 07/28/23 documented as of this encounter
--- OUTSIDE RECORDS SUMMARY | 2025-02-11 18:16 | XMS_ITS | Encounter Summary ---
Author Organization [facility] Healthcare Address [address] [place] [address] Care Team Providers Care Assistant Site Manager Name Role Phone Mike Douglass MD Primary Care Provider [phone] Reason for Visit * Diagnostic Imaging (Routine) - Closed Specialty Diagnoses / Procedures Referred By Chasity vanegas Referred To Contact Procedures Breast Imaging Screening Outside Reference Patricia Powell NP Phone: tel: fax: Referral ID Status Reason Start Date Expiration Date Visits Re quested Visits Authorized [id number] Closed 02/02/2022 03/04/2023 1 1 Encounter Details Date Type Department Care Team (Late st Contact Info) Description 12/28/2018 12:05 AM CDT Hospital Encounter [facility] [address] [place] [address] Social History Tobacco Use Types Packs/Day [...] on file 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 There will be no report generated by a [facility] Radiologist. Narrative [facility] - 02/02/2022 3:09 PM CDT EXAMINATION: Images For Reference Purposes Only us Patricia Powell TRAFFIC SUPERINTENDENT IMG MAMMO PROCEDURES Fin al Result [facility] documented in this encounter Visit Diagnoses Not on filedocumented in this encounter Additional Health Concerns Infection Onset Date Last Indicated Resolved Time COVID: Suspected 11/13/2021 11/13/2021 11/13/2021 2:41 PM MAINFRAME PROGRAMMER documented as of this encounter Care Teams Assistant Site Manager Relationship Specialty Start Date End Date Mike Douglass MD [address] [place] [id number] PCP - General Family Medicine 03/21/18 07/02/19 documented as of this encounter
--- OUTSIDE RECORDS SUMMARY | 2025-02-11 18:16 | XMS_ITS | Encounter Summary ---
Author Organization [facility] Healthcare Address [address] [place] [address] Care Team Providers Care Supplemental Manager Name Role Phone Unavailable Primary Care Provider Unavailabl e Reason for Visit * Diagnostic Imaging (Routine) - Closed Specialty Diagnoses / Procedures Referred By Chasity t Referred To Contact Procedures Breast Imaging Diagnostic Outside Reference Patricia Powell NP Phone: tel: fax: Referral ID Status Reason Start Date Expiration Date Visits Re quested Visits Authorized [id number] Closed 02/02/2022 03/04/2023 1 1 Encounter Details Date Type Department Care Team (Late st Contact Info) Description 04/09/2015 12:05 AM CDT Hospital Encounter [facility] [address] [place] [address] Social History Tobacco Use Types Packs/Day Years [...] on file 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 There will be no report generated by a [facility] Radiologist. Narrative [facility] - 02/02/2022 3:04 PM CDT EXAMINATION: Images For Reference Purposes Only us Patricia Powell NP IMG MAMMO PROCEDURES Fin al Result [facility] documented in this encounter Visit Diagnoses Not on filedocumented in this encounter Additional Health Concerns Infection Onset Date Last Indicated Resolved Time COVID: Suspected 11/13/2021 11/13/2021 11/13/2021 2:41 PM EDI SPECIALIST documented as of this encounter
--- OUTSIDE RECORDS SUMMARY | 2025-02-11 18:16 | XMS_ITS ---
Author Organization [facility] Address [address] [place] [address] Care Team Providers Care Flying I Instructor Name Role Phone Suhail Marie MD Unavailable [phone] Robin Pimentel MD Unavailable [phone] Ceci Garcia ORDER CALLER Primary Care Provide r Active Problems Problem Noted Date Diagnosed Date [...] Gastroesophageal reflux disease 07/18/2012 Depression Hiatal hernia Current Treatment and Therapy Plans Adult BMT/ONC - Blood and/or Platelet Administration for Outpatient* Plan Start Date:07/03/2023 Plan Provider:Belem Menchaca MD Linked Problems Cancer of peritoneum (HCC) Treatment Medications No medications scheduled. GemCITAbine (D1, D8) / CARBOplatin (D1) / Bevacizumab (D1) 21 Day Cycles - HVAC REFRIGERATION TECHNICIAN* Plan Start Date:02/23/2025 Plan Provider:Belem Menchaca MD Linked Problems Cancer of peritoneum (HCC) Treatment Medications Current Day (Prepa ration - Planned for 02/23/2025) Next Day (Day 1, Cycle 1 - Planned for 02/24/2025) bevacizumab-awwb (MVASI)CARBOplatin (by AUC:GOG) (PARAPLATIN)gemcitabine (GEMZAR) No medications scheduled. bevacizumab-awwb (MVASI) 1,0 00 mg in sodium chloride 0.9% 100 mL IVPBCARBOplatin (PARAPLATIN) 220 mg in sodium chloride 0.9% 250 mL IVPB (BY AUC GOG)gemcitabine (GEMZAR - J9201) 1,062 mg in sodium chloride 0.9% 250 mL IVPB IV Maintenance Therapy Plan* Plan Start Date:06/03/2023 Plan Provider:Belem Menchaca MD Linked Problems Cancer of peritoneum (HCC) Treatment Medications No medications scheduled. IV MAINTENANCE THERAPY PLAN* Plan Start Date:09/11/2020 Plan Provider:Belem Menchaca MD Linked Problems Cancer of peritoneum (HCC) Treatment Medications No medications scheduled. Venous Sampling from IVAD* Plan Start Date:07/04/2020 Plan Provider:Belem Menchaca MD Linked Problems Cancer of peritoneum (HCC) Treatment Medications No medications scheduled. Past Treatment and Therapy Plans Line Care Plan Name Start Date Discontinue Date Treatment Medications Discontinue Reason Plan Provider IV MAINTENANCE THERAPY PLAN 06/27/2020 06/03/2023 No medications scheduled. Orders Belem Menchaca MD Oncology Chemotherapy Treatment Plan Name Start Date Discontinue Date Treatment Medications Discontinue Reason Plan Provider Cycles Olaparib TABlets PO BID 28 Day Cycles - HVAC REFRIGERATION TECHNICIAN 4 02/08/2025 No medications scheduled. Progression Belem Menchaca MD Treatment not started DOXOrubicin Liposomal (DOXIL) / CARBOplatin 28 Day Cycles - HVAC REFRIGERATION TECHNICIAN (Carbo Locked) 3 09/23/2023 CARBOplatin (PARAPLATIN) IVPB in 250 mL (by AUC: GOG)LIPOSOMAL DOXOrubicin (DOXIL) IVPB in 250 mL Therapy Complete Belem Menchaca MD 6 of 6 cycles started PACLItaxel weekly / CARBOplatin weekly 21 Day Cycles - HVAC REFRIGERATION TECHNICIAN 06/27/20 20 11/14/2021 CARBOplatin (by AUC:GOG) (PARAPLATIN)CA RBOplatin (PARAPLATIN) IVPB in 250 mL (by AUC: GOG)PACLitaxel (TAXOL)PACLIta xel (TAXOL) 100 ml Therapy Complete Belem Menchaca MD 6 of 6 cycles started Lifetime Dose Tracking * Chemical Lifetime Dose Automatic Entry Manual Entr y Fluoro Time 13.951 minutes 13.951 minutes 0 minutes doxorubicin HCl pegylated liposomal 181.161 mg/m2 (330 mg) 181.161 mg/m2 (330 mg) 0 mg/m2 (0 mg) doxorubicin isotoxic equivalent (Please manually verify calculation) 181.161 mg/m2 (330 mg) 181.161 mg/m2 (330 mg) 0 mg/m2 (0 mg) Air kerma at the reference point (Ka,r) 36.54 mGy 36.54 mGy 0 mGy DLP 7,777 mGycm 7,777 mGycm 0 mGycm Resolved Problems Problem Noted Date Diagnosed Date [...] - Keep follow-up appointments with IR and HVAC REFRIGERATION TECHNICIAN as directed. - Discussed with patient the [...] (04/18/2020): Added automatically from request for surgery [id number] Heart burn 07/03/2019 04/18/2020 Overview (07/03/2019): Added automatically from request for surgery [id number] Malignant neoplasm of overla pping sites of right female breast 05/16/2019 04/18/2020 Former smoker 07/18/2012 04/18/2020 Overview (12/24/2017): Description: 03/19/14 Hyperlipidemia 07/18/2020
--- OUTSIDE RECORDS SUMMARY | 2025-02-11 18:16 | XMS_ITS | Clinical Summary ---
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 01/07/2025 12:55 AM CDT Are special requirements needed? (All products are leukoreduced and CMV- safe)- >No Date required:-[id number] LRRBC # of Aeejz-[id number] Reasons:-Intra-op transfusion} us Coy Cespedes MD BLOOD BANK PRODUCT ORDERABLES Fi nal Result Performing Organization Address City/[facility] Co de Phone Number [facility]OTI ZUNIG[facility] Department [place] [address] * (ABNORMAL) Urinalysis reflex to microscopic and culture Urine, clean voided (01/06/2025 10:55 AM CDT) Color, ur Straw Yellow Clarity, ur Clear Clear [facility] Specific gravity, ur 1.037(H) 1.003 - 1.030 [facility] pH, urine 6.0 [facility] Comment: Interpretive Data U rine pH is affected by diet, medications, systemic acid-base disturbances, and renal tubular function. pH may affect urinary stone formation. For example, urine pH below 6.0 may help reduce the tendency for calcium phosphate stones and pH greater than 6.0 may reduce the tendency for uric acid stone formation. Source: [facility] Current Interpretive Data was last revised on 2017 Protein, ur ql Negative Negative [facility] Glucose, ur ql Negative Negative [facility] Ketones, ur 1+(A) Negative [facility] Bilirubin, ur Negative Negative [facility] Blood, ur Negative Negative [facility] Urobilinogen, ur <2.0 <2.0 mg/dL [facility] Nitrite, ur Negative Negative [facility] Leukocyte esterase, ur 1+(A) Negative [facility] UA reflex comment Reflex to microscopic UA will be performed. [facility] Urine, clean voided 01/06/2025 10:55 AM CDT 01/06/2025 11:09 AM CDT us Belem Menchaca MD LAB MICROBIOLOGY - GENERA L ORDERABLES Final Result [facility] Department [place] [address] * (ABNORMAL) Urinalysis, microscopic only (01/06/2025 10:55 AM CDT) WBC, ur 11-20(A) 0 - 5 /HPF RBC, ur 0-2 0 - 2 /HPF [facility] Epithelial cells, squamous, ur 1-5 0 - 5 /HPF [facility] Bacteria, ur 1+(A) [facility] Yeast, ur TRACE [facility] Mucous, ur Present(A) [facility] Urine, clean voided 01/06/2025 10:55 AM CDT 01/06/2025 11:09 AM CDT Belem Menchaca MD LAB URINE ORDERABLES Marbella jeong Result [facility] Department [place] [address] * (ABNORMAL) Urine culture Urine, bladder (01/06/2025 10:46 AM CDT) Report Final Report: Greater than or equal to 100,000 colonies/mL of Escherichia coli Greater than or equal to 100,000 colonies/mL of Klebsiella pneumoniae (.) Organism ESCHERICHIA COLI [facility] Organism KLEBSIELLA PNEUMONIAE [facility] Urine, bladder 01/06/2025 10 :46 AM CDT 01/06/2025 11:20 AM CDT Narrative [facility] - 01/09/2025 11:42 AM CDT Indications for Culture:->Urology patient Testing performed by [facility] ([phone]) Organism Antibiotic Method Susceptibility Escherichia coli Ampicillin [...] INTERPRETATION Susceptible Klebsiella pneumoniae Cefdinir INTERPRETATION Susceptible Belem Menchaca MD LAB MICROBIOLOGY - GENERA L ORDERABLES Final Result Performing Organization Address [facility]/[place] [address] * Type and screen (01/06/2025 6:06 AM CDT) Rylee, indirect Negative Comment:Patient has previous antibody history ABO Rh O Negative [facility] Blood 01/06/2025 6:06 AM CDT 01/06/2025 7:24 AM CDT Narrative [facility] - 01/06/2025 9:00 AM CDT Has the patient had Daratumumab or Isatuximab in the past 6 months?->Unknown Belem Menchaca MD LAB BLOOD BANK TEST ORDER BRYCE Final Result Performing Organization Address [facility] [place] [address] * Prepare RBC: 1 Units (01/06/2025 5:50 AM CDT) Pathologist [facility] Product code [id number] Unit Number [id number] [facility] Product Blood Type ONEG [facility] Dispense Status RETURNED [facility] Blood 01/06/2025 5:50 AM CDT 01/06/2025 5:50 AM CDT Narrative [facility] - 01/06/2025 12:15 PM CDT Are special requirements needed? (All products are leukoreduced and CMV- safe)- >No Date required:-[id number] LRRBC # of Whpos-0-Rsonp Reasons:-Hgb <7 g/dL} Belem Menchaca MD BLOOD BANK PRODUCT ORDERA BLES Final Result Performing Organization Address [facility] Co de Phone Number [facility] Department [place] [address] * (ABNORMAL) eGFR (01/06/2025 4:47 AM CDT) Pathologist [facility] eGFR 35(L) >=60 mL/min/1. 73 m2 Comment: [...] ORDERABLES Marbella l Result Performing Organization Address [facility] Co de Phone Number [facility] [place] [address] * (ABNORMAL) Differential, auto (01/06/2025 4:47 AM CDT) Pathologist [facility] Neutrophil abs 3.43 1.50 - 6.50 K/cumm Imm gran abs 0.02 0.00 - 0.10 K/cumm [facility] Lymphocyte abs 0.59(L) 0.80 - 3.30 K/cumm [facility] Monocyte abs 0.59 0.20 - 0.80 K/cumm [facility] Eosinophil abs 0.03 0.00 - 0.50 K/cumm [facility] Basophil abs 0.02 0.00 - 0.10 K/cumm [facility] Neutrophil pct 73.4 % [facility] Comment: Interpretive Data Percent cell count reference ranges are not reported, since discordance with absolute values may lead to misinterpretation of CBC data. Current Interpretive Data was last revised on 2017. Imm gran pct 0.4 % [facility] Comment: Interpretive Data Percent cell count reference ranges are not reported, since discordance with absolute values may lead to misinterpretation of CBC data. Current Interpretive Data was last revised on 2017. Lymphocyte pct 12.6 % [facility] Comment: Interpretive Data Percent cell count reference ranges are not reported, since discordance with absolute values may lead to misinterpretation of CBC data. Current Interpretive Data was last revised on 2017. Monocyte pct 12.6 % [facility] Comment: Interpretive Data Percent cell count reference ranges are not reported, since discordance with absolute values may lead to misinterpretation of CBC data. Current Interpretive Data was last revised on 2017. Eosinophil pct 0.6 % [facility] Comment: Interpretive Data Percent cell count reference ranges are not reported, since discordance with absolute values may lead to misinterpretation of CBC data. Current Interpretive Data was last revised on 2017. Basophil pct 0.4 % [facility] Comment: Interpretive Data Percent cell count reference ranges are not reported, since discordance with absolute values may lead to misinterpretation of CBC data. Current Interpretive Data was last revised on 2017. Blood 01/06/2025 4:47 AM CDT 01/06/2025 5:27 AM CDT us Belem Menchaca MD LAB BLOOD ORDERABLES Marbella jeong Result [facility] Department [place] [address] * (ABNORMAL) CBC with auto differential (01/06/2025 4:47 AM CDT) [facility] WBC 4.68 3.80 - 9.90 K/cumm Hgb 6.9(L) 11.9 - 15.5 g/dL [facility] Hct 19.9(L) 35.6 - 45.5 % [facility] Plt 171 150 - 400 K/cumm [facility] MPV 11.4 9.1 - 12.3 fL [facility] RBC 1.77(L) 3.90 - 5.20 M/cumm [facility] MCV 112.4(H) 81.3 - 96.4 fL [facility] MCH 39.0(H) 27.1 - 33.3 pg [facility] MCHC 34.7 32.3 - 35.7 g/dL [facility] RDW CV 15.9(H) 11.1 - 14.9 % [facility] RDW SD 65.1(H) 35.7 - 48.1 fL [facility] NRBC abs 0.00 0.00 - 0.01 K/cumm [facility] Blood 01/06/2025 4:47 AM CDT 01/06/2025 5:27 AM CDT Belem Menchaca MD LAB BLOOD ORDERABLES Marbella l Result [facility] Department [place] [address] * (ABNORMAL) aPTT (01/06/2025 4:47 AM CDT) [facility] aPTT 27(L) 28 - 38 sec Comment: Interpretive Data Heparin therapeutic range: 66.0 - 100.0 seconds. Range based on correlation with therapeutic heparin activity range of 0.3 - 0.7 Units/mL. Current interpretive data was last revised on 2023. Blood 01/06/2025 4:47 AM CDT 01/06/2025 5:43 AM CDT Belem Menchaca MD LAB BLOOD ORDERABLES Marbella l Result Performing Organization Address [facility] [place] [address] * Protime-INR (01/06/2025 4:47 AM CDT) PT 12.5 9.7 - 13.0 sec INR 1.15 0.90 - 1.20 [facility] Comment: Interpretive data Oral anticoagulant therapeutic ranges: Venous thromboembolism prophylaxis or treatment: 2.0-3.0 CARDIOLOGY Standard range: 2.0-3.0 High-intensity range: 2.5-3.5 Refer to indication-specific guidelines for appropriate target ranges for prosthetic heart valve replacement. Current interpretive data was last revised on 2019. Blood 01/06/2025 4:47 AM CDT 01/06/2025 5:43 AM CDT Belem Menchaca MD LAB BLOOD ORDERABLES Marbella l Result Performing Organization Address [facility] [place] [address] * (ABNORMAL) CA 125 (01/06/2025 4:47 AM CDT) CA 125 ag 40.2(H) 0.0 - 38.1 units/mL Comment: Interpretive Data [employer] CA 125 assay procedure was used. Results from different manufacturers or methods may not be comparable. Serial testing should be performed using the same method. Blood 01/06/2025 4:47 AM CDT 01/06/2025 5:27 AM CDT Belem Menchaca MD LAB BLOOD ORDERABLES Marbella l Result Performing Organization Address [facility] Co de Phone Number [facility] [place] [address] * Phosphorus (01/06/2025 4:47 AM CDT) [facility] Phosphorus, pl 3.3 2.3 - 4.5 mg/dL Blood 01/06/2025 4:47 AM CDT 01/06/2025 5:27 AM CDT Belem Menchaca MD LAB BLOOD ORDERABLES Marbella l Result Performing Organization Address City/[facility]/ZIP Co de Phone Number [facility] Department [place] [address] * Magnesium (01/06/2025 4:47 AM CDT) [facility] Magnesium 1.4 1.4 - 2.5 mg/dL Blood 01/06/2025 4:47 AM CDT 01/06/2025 5:27 AM CDT Belem Menchaca MD LAB BLOOD ORDERABLES Marbella l Result Performing Organization Address [facility] de Phone Number [facility] [place] [address] * (ABNORMAL) Comprehensive metabolic panel (01/06/2025 4:47 AM CDT) [facility] Sodium 140 135 - 145 mmol/L Potassium, pl 3.5 3.3 - 4.9 mmol/L [facility] Chloride 105 97 - 110 mmol/L [facility] CO2 25 22 - 32 mmol/L [facility] Anion gap 10 2 - 15 mmol/L [facility] BUN 14 6 - 25 mg/dL [facility] Creatinine 1.59(H) 0.60 - 1.10 mg/dL [facility] Glucose 107 70 - 199 mg/dL [facility] Comment: Interpretive Data Fasting glucose >/= 126 [...] Calcium 8.7 8.5 - 10.3 mg/dL [facility] Bilirubin, total 0.4 0.1 - 1.2 mg/dL [facility] Protein, pl 5.7(L) 6.5 - 8.5 g/dL [facility] Albumin 3.2(L) 3.5 - 5.0 g/dL [facility] Alk phos 120 40 - 130 Units/L [facility] ALT 12 7 - 45 Units/L [facility] AST 28 10 - 45 Units/L [facility] Blood 01/06/2025 4:47 AM CDT 01/06/2025 5:27 AM CDT Belem Menchaca MD LAB BLOOD ORDERABLES Marbella jeong Result [facility] Department [place] [address] * CT Abdomen Pelvis W Contrast (01/05/2025 [...] it. Electronically signed by: Jerad Dukes M.D. Anthony Clay MD IM CT PROCEDURES Final Result * Troponin I high-sensitivity 2-hour (01/05/2025 8:06 PM CDT) Trop I hs 6 <=17 ng/L Comment: Interpretive Data For further [facility] resources including the diagnostic algorithm and an aid in interpretation, copy and paste this link: [email or web address]/[email or web address] Current Interpretive Data last revised 2020. Trop I hs delta 1 ng/L [facility] Trop I hs interp Insignificant [facility] Blood 01/05/2025 8:06 PM CDT 01/05/2025 8:18 PM CDT Juventino Rousseau MD LAB BLOOD ORDERABLES Final R esult Performing Organization Address [facility] Co de Phone Number [facility] [place] [address] * Troponin I high-sensitivity series (baseline, 2hr, 4hr, 6hr) (01/05/2025 5:49 PM CDT) Pathologist [facility] Trop I hs 5 <=17 ng/L Comment: Interpretive Data For further hscTnI resources including the diagnostic algorithm and an aid in interpretation, copy and paste this link: [email or web address]/show/[email or web address] Current Interpretive Data last revised 2020. Blood 01/05/2025 5:49 PM CDT 01/05/2025 6:02 PM CDT us Anthony Clay MD LAB BLOOD ORDERABLES Final Res ult Performing Organization Address [facility]/ZIP Co de Phone Number [facility] [place] [address] * (ABNORMAL) eGFR (01/05/2025 5:49 PM CDT) Pathologist [facility] eGFR 30(L) >=60 mL/min/1. 73 m2 Comment: [...] MD LAB BLOOD ORDERABLES Final R esult [facility] Department [place] [address] * (ABNORMAL) Differential, auto (01/05/2025 5:49 PM CDT) Pathologist [facility] Neutrophil abs 3.58 1.50 - 6.50 K/cumm Imm gran abs 0.02 0.00 - 0.10 K/cumm [facility] Lymphocyte abs 0.67(L) 0.80 - 3.30 K/cumm [facility] Monocyte abs 0.56 0.20 - 0.80 K/cumm [facility] Eosinophil abs 0.04 0.00 - 0.50 K/cumm [facility] Basophil abs 0.02 0.00 - 0.10 K/cumm [facility] Neutrophil pct 73.2 % [facility] Comment: Interpretive Data Percent cell count reference ranges are not reported, since discordance with absolute values may lead to misinterpretation of CBC data. Current Interpretive Data was last revised on 2017. Imm gran pct 0.4 % [facility] Comment: Interpretive Data Percent cell count reference ranges are not reported, since discordance with absolute values may lead to misinterpretation of CBC data. Current Interpretive Data was last revised on 2017. Lymphocyte pct 13.7 % [facility] Comment: Interpretive Data Percent cell count reference ranges are not reported, since discordance with absolute values may lead to misinterpretation of CBC data. Current Interpretive Data was last revised on 2017. Monocyte pct 11.5 % [facility] Comment: Interpretive Data Percent cell count reference ranges are not reported, since discordance with absolute values may lead to misinterpretation of CBC data. Current Interpretive Data was last revised on 2017. Eosinophil pct 0.8 % [facility] Comment: Interpretive Data Percent cell count reference ranges are not reported, since discordance with absolute values may lead to misinterpretation of CBC data. Current Interpretive Data was last revised on 2017. Basophil pct 0.4 % [facility] Comment: Interpretive Data Percent cell count reference ranges are not reported, since discordance with absolute values may lead to misinterpretation of CBC data. Current Interpretive Data was last revised on 2017. Blood 01/05/2025 5:49 PM CDT 01/05/2025 6:03 PM CDT us Juventino Rousseau MD LAB BLOOD ORDERABLES Final R esult [facility] Department [place] [address] * (ABNORMAL) CBC with auto differential (01/05/2025 5:49 PM CDT) WBC 4.89 3.80 - 9.90 K/cumm Hgb 7.7(L) 11.9 - 15.5 g/dL [facility] Hct 22.3(L) 35.6 - 45.5 % [facility] Plt 215 150 - 400 K/cumm [facility] MPV 10.9 9.1 - 12.3 fL [facility] RBC 2.01(L) 3.90 - 5.20 M/cumm [facility] MCV 110.9(H) 81.3 - 96.4 fL [facility] MCH 38.3(H) 27.1 - 33.3 pg [facility] MCHC 34.5 32.3 - 35.7 g/dL [facility] RDW CV 15.7(H) 11.1 - 14.9 % [facility] RDW SD 63.2(H) 35.7 - 48.1 fL [facility] NRBC abs 0.00 0.00 - 0.01 K/cumm [facility] Blood Venous blood specimen / Unknown 01/05/2025 5:49 PM CDT 01/05/2025 6:03 PM CDT us Anthony Clay MD LAB BLOOD ORDERABLES Final Res ult [facility] Department [place] [address] * Lipase (01/05/2025 5:49 PM CDT) [facility] Lipase 20 10 - 99 Units/L Blood 01/05/2025 5:49 PM CDT 01/05/2025 6:02 PM CDT Leona Mcclure MD LAB BLOOD ORDERABLE S Final Result [facility] Department [place] [address] * (ABNORMAL) Comprehensive metabolic panel (01/05/2025 5:49 PM CDT) Pathologist [facility] Sodium 137 135 - 145 mmol/L Potassium, pl 4.1 3.3 - 4.9 mmol/L [facility] Chloride 101 97 - 110 mmol/L [facility] CO2 24 22 - 32 mmol/L [facility] Anion gap 12 2 - 15 mmol/L [facility] BUN 14 6 - 25 mg/dL [facility] Creatinine 1.83(H) 0.60 - 1.10 mg/dL [facility] Glucose 93 70 - 199 mg/dL [facility] Comment: Interpretive Data Fasting glucose >/= 126 [...] 2022. Calcium 9.2 8.5 - 10.3 mg/dL [facility] Bilirubin, total 0.4 0.1 - 1.2 mg/dL [facility] Protein, pl 6.3(L) 6.5 - 8.5 g/dL [facility] Albumin 3.5 3.5 - 5.0 g/dL [facility] Alk phos 136(H) 40 - 130 Units/L [facility] ALT 11 7 - 45 Units/L [facility] AST 23 10 - 45 Units/L [facility] Blood 01/05/2025 5:49 PM CDT 01/05/2025 6:02 PM CDT us Anthony Clay MD LAB BLOOD ORDERABLES Final Res ult [facility] Department [place] [address] * XR Chest Pa Lateral 2 Views [...] prior radiographs most recently 11/13/2021 Procedure Note hSayne Davis MD - 01/05/2025 EXAMINATION: XR CHEST [...] ECG 12-LEAD (01/05/2025 1:08 PM CDT) Narrative [facility] - 01/05/2025 1:08 PM CDT Branden Almendarez [...] pain and NV Branden Almendarez MD 01/05/25 1309 Anthony Clay MD ECG ORDERABLES Final Result [facility] * (ABNORMAL) eGFR (01/01/2025 1:57 PM CDT) [...] MD LAB BLOOD ORDERABLES Marbella jeong Result [facility] Department [place] [address] * (ABNORMAL) Differential, auto (01/01/2025 1:57 PM CDT) Neutrophil abs 3.49 1.50 - 6.50 K/cumm Imm gran abs 0.02 0.00 - 0.10 K/cumm [facility] Lymphocyte abs 0.73(L) 0.80 - 3.30 K/cumm [facility] Monocyte abs 0.65 0.20 - 0.80 K/cumm [facility] Eosinophil abs 0.14 0.00 - 0.50 K/cumm [facility] Basophil abs 0.04 0.00 - 0.10 K/cumm [facility] Neutrophil pct 68.8 % [facility] Comment: Interpretive Data Percent cell count reference ranges are not reported, since discordance with absolute values may lead to misinterpretation of CBC data. Current Interpretive Data was last revised on 2017. Imm gran pct 0.4 % [facility] Comment: Interpretive Data Percent cell count reference ranges are not reported, since discordance with absolute values may lead to misinterpretation of CBC data. Current Interpretive Data was last revised on 2017. Lymphocyte pct 14.4 % [facility] Comment: Interpretive Data Percent cell count reference ranges are not reported, since discordance with absolute values may lead to misinterpretation of CBC data. Current Interpretive Data was last revised on 2017. Monocyte pct 12.8 % [facility] Comment: Interpretive Data Percent cell count reference ranges are not reported, since discordance with absolute values may lead to misinterpretation of CBC data. Current Interpretive Data was last revised on 2017. Eosinophil pct 2.8 % [facility] Comment: Interpretive Data Percent cell count reference ranges are not reported, since discordance with absolute values may lead to misinterpretation of CBC data. Current Interpretive Data was last revised on 2017. Basophil pct 0.8 % [facility] Comment: Interpretive Data Percent cell count reference ranges are not reported, since discordance with absolute values may lead to misinterpretation of CBC data. Current Interpretive Data was last revised on 2017. Blood 01/01/2025 1:57 PM CDT 01/01/2025 2:27 PM CDT Belem Menchaca MD LAB BLOOD ORDERABLES Marbella jeong Result [facility] Department [place] [address] * (ABNORMAL) CBC with auto differential (01/01/2025 1:57 PM CDT) WBC 5.07 3.80 - 9.90 K/cumm Hgb 8.2(L) 11.9 - 15.5 g/dL [facility] Hct 24.3(L) 35.6 - 45.5 % [facility] Plt 228 150 - 400 K/cumm [facility] MPV 11.2 9.1 - 12.3 fL [facility] RBC 2.14(L) 3.90 - 5.20 M/cumm [facility] MCV 113.6(H) 81.3 - 96.4 fL [facility] MCH 38.3(H) 27.1 - 33.3 pg [facility] MCHC 33.7 32.3 - 35.7 g/dL [facility] RDW CV 15.9(H) 11.1 - 14.9 % [facility] RDW SD 66.4(H) 35.7 - 48.1 fL [facility] NRBC abs 0.02(H) 0.00 - 0.01 K/cumm [facility] Blood 01/01/2025 1:57 PM CDT 01/01/2025 2:27 PM CDT us Belem Menchaca MD LAB BLOOD ORDERABLES Marbella jean-paul Result [facility] Department [place] [address] * (ABNORMAL) Comprehensive metabolic panel (01/01/2025 1:57 PM CDT) Sodium 139 135 - 145 mmol/L Potassium, pl 4.6 3.3 - 4.9 mmol/L [facility] Chloride 104 97 - 110 mmol/L [facility] CO2 26 22 - 32 mmol/L [facility] Anion gap 9 2 - 15 mmol/L [facility] BUN 11 6 - 25 mg/dL [facility] Creatinine 1.84(H) 0.60 - 1.10 mg/dL [facility] Glucose 105 70 - 199 mg/dL [facility] Comment: Interpretive Data Fasting glucose >/= 126 [...] 2022. Calcium 9.5 8.5 - 10.3 mg/dL [facility] Bilirubin, total 0.3 0.1 - 1.2 mg/dL [facility] Protein, pl 6.3(L) 6.5 - 8.5 g/dL [facility] Albumin 3.6 3.5 - 5.0 g/dL [facility] Alk phos 146(H) 40 - 130 Units/L [facility] ALT 10 7 - 45 Units/L [facility] AST 25 10 - 45 Units/L [facility] Blood 01/01/2025 1:57 PM CDT 01/01/2025 2:27 PM CDT Belem Menchaca MD LAB BLOOD ORDERABLES Marbella l Result Performing Organization Address City/[facility] Co de Phone Number [facility] [place] [address] * (ABNORMAL) eGFR (12/05/2024 11:21 AM CDT) eGFR 32(L) >=60 mL/min/1. 73 m2 Comment: [...] 1 AM CDT 12/05/2024 12:00 PM CDT Belem Mnechaca MD LAB BLOOD ORDERABLES Marbella l Result Performing Organization Address [facility]/ZIP Co de Phone Number [facility] Department [place] [address] * (ABNORMAL) Differential, auto (12/05/2024 11:21 AM CDT) Neutrophil abs 6.5 1.5 - 6.5 K/cumm Imm gran abs 0.0 0.0 - 0.1 K/cumm [facility] Lymphocyte abs 0.5(L) 0.8 - 3.3 K/cumm [facility] Monocyte abs 0.5 0.2 - 0.8 K/cumm [facility] Eosinophil abs 0.1 0.0 - 0.5 K/cumm [facility] Basophil abs 0.0 0.0 - 0.1 K/cumm [facility] Neutrophil pct 84.4 % [facility] Comment: Interpretive Data Percent cell count reference ranges are not reported, since discordance with absolute values may lead to misinterpretation of CBC data. Current Interpretive Data was last revised on 2017. Imm gran pct 0.5 % [facility] Comment: Interpretive Data Percent cell count reference ranges are not reported, since discordance with absolute values may lead to misinterpretation of CBC data. Current Interpretive Data was last revised on 2017. Lymphocyte pct 6.7 % [facility] Comment: Interpretive Data Percent cell count reference ranges are not reported, since discordance with absolute values may lead to misinterpretation of CBC data. Current Interpretive Data was last revised on 2017. Monocyte pct 6.7 % [facility] Comment: Interpretive Data Percent cell count reference ranges are not reported, since discordance with absolute values may lead to misinterpretation of CBC data. Current Interpretive Data was last revised on 2017. Eosinophil pct 1.2 % [facility] Comment: Interpretive Data Percent cell count reference ranges are not reported, since discordance with absolute values may lead to misinterpretation of CBC data. Current Interpretive Data was last revised on 2017. Basophil pct 0.5 % [facility] Comment: Interpretive Data Percent cell count reference ranges are not reported, since discordance with absolute values may lead to misinterpretation of CBC data. Current Interpretive Data was last revised on 2017. Blood 12/05/2024 11:2 1 AM CDT 12/05/2024 11:57 AM CDT Belem Menchaca MD LAB BLOOD ORDERABLES Marbella l Result Performing Organization Address City/[facility]/ZIP Co de Phone Number [facility] Department [place] [address] * (ABNORMAL) CBC with auto differential (12/05/2024 11:21 AM CDT) Pathologist [facility] WBC 7.6 3.8 - 9.9 K/cumm Hgb 8.8(L) 11.9 - 15.5 g/dL [facility] Hct 25.3(L) 35.6 - 45.5 % [facility] Plt 278 150 - 400 K/cumm [facility] MPV 10.9 9.1 - 12.3 fL [facility] RBC 2.29(L) 3.90 - 5.20 M/cumm [facility] MCV 110.5(H) 81.3 - 96.4 fL [facility] MCH 38.4(H) 27.1 - 33.3 pg [facility] MCHC 34.8 32.3 - 35.7 g/dL [facility] RDW CV 14.6 11.1 - 14.9 % [facility] RDW SD 59.4(H) 35.7 - 48.1 fL [facility] NRBC abs 0.03(H) 0.00 - 0.01 K/cumm [facility] Blood 12/05/2024 11:2 1 AM CDT 12/05/2024 11:57 AM CDT us Belem Menchaca MD LAB BLOOD ORDERABLES Marbella l Result Performing Organization Address City/[facility]/ZIP Co de Phone Number [facility] Department [place] [address] * (ABNORMAL) Comprehensive metabolic panel (12/05/2024 11:21 AM CDT) Pathologist [facility] Sodium 140 135 - 145 mmol/L Potassium, pl 4.4 3.3 - 4.9 mmol/L [facility] Chloride 103 97 - 110 mmol/L [facility] CO2 25 22 - 32 mmol/L [facility] Anion gap 12 2 - 15 mmol/L [facility] BUN 11 6 - 25 mg/dL [facility] Creatinine 1.70(H) 0.60 - 1.10 mg/dL [facility] Glucose 102 70 - 199 mg/dL [facility] Comment: Interpretive Data Fasting glucose >/= 126 [...] 2022. Calcium 10.1 8.5 - 10.3 mg/dL [facility] Bilirubin, total 0.4 0.1 - 1.2 mg/dL [facility] Protein, pl 7.3 6.5 - 8.5 g/dL [facility] Albumin 4.1 3.5 - 5.0 g/dL [facility] Alk phos 159(H) 40 - 130 Units/L [facility] ALT 10 7 - 45 Units/L [facility] AST 19 10 - 45 Units/L [facility] Blood 12/05/2024 11:2 1 AM CDT 12/05/2024 11:57 AM CDT us Belem Menchaca MD LAB BLOOD ORDERABLES Marblela l Result [facility] Department of Laboratories [place], [place] [id number] * Screening Mammogram Left W Pardeep Unilateral Only (04/28/2024 2:23 PM CDT) Anatomical Region Laterality Modality Breast Left Mammography Narrative 05/01/2024 3:22 PM CDT Mammogram Technique: Left Breast Digital Breast Tomosynthesis, Unilateral C-view 2D Screening mammogram. Views obtained: left craniocaudal and left mediolateral oblique. Computer Aided Detection was performed. Mammogram Findings: The present examination has been compared to prior imaging studies performed at [facility]. [facility] on 12/28/2018, and at [facility] on 03/17/2022 and 03/24/2023. There are [...] compared to prior imaging studies performed at [facility]. [facility] on 12/28/2018, andat [facility] on 03/17/2022 and 03/24/2023. There are scattered areas of fibroglandular density. There is no suspicious abnormality in the left breast. Patient status post contralateral mastectomy for personal history ofbreast cancer. Impression: There is no mammographic evidence of malignancy. Annual screening mammography is recommended. OVERALL FINAL ASSESSMENT: BI-RADS CATEGORY 1: Negative. Lilo Boucher NP IMG MAMMO PROCEDURES Final Result from Last 3 Months or Most Recently Relevant to Health Maintenance Insurance [facility] CMR [facility] HE[facility] PLAN MEDICARE [facility] AETNA [facility] [id number] [facility]AN MEDICARE [facility]AN SECONDARY MEDICARE R [facility]AN SECONDARY Advance Directives For more information, please contact: [phone] * Full Code (Latest Code Status on [...] 8:01 PM 05/29/2020 8:17 PM Care Teams Implementation Specialist Relationship Specialty [place] [id number] [address] [address] PCP - General Nurse Practitioner 01/05/25 Suhail Marie MD [address] [place] [address] Internal Medicine 07/28/23 Robin Pimentel MD [address] [place] [address] Internal Medicine 07/28/23
[2025-02-11 18:27] LABS: Alanine Aminotransferase 17 U/L (6-35); Albumin Level 3.3 g/dL (3.5-5.1); Alkaline Phosphatase 129 U/L (38-126); Anion Gap 8 mmol/L (4-12); Aspartate Amino Transferase 31 U/L (14-36); Bilirubin,Total 0.8 mg/dL (0.2-1.3); Blood Urea Nitrogen 24 mg/dL (7-17); Calcium 8.7 mg/dL (8.4-10.2); Carbon Dioxide 24 mmol/L (22-30); Chloride 101 mmol/L (98-107); Estimated CRCL calculation 31 ml/min; Estimated Glomerular Filt Rate 34; Glucose 138 mg/dL (65-110); Lipase 27 U/L (23-300); Sodium 133 mmol/L (137-145)
[2025-02-11 18:32] LABS: Anisocytosis 2+; Hypochromasia 2+; Platelet Estimate Adequate (Adequate)
[2025-02-11 18:33] LABS: Poikilocytosis 1+; Schistocytes None Seen
--- OUTSIDE RECORDS SUMMARY | 2025-02-11 18:54 | XMS_ITS | Encounter Summary ---
Author Organization [facility] Healthcare Address [address] [place] [address] Care Team Providers Care Army Senior Officer Name Role Phone Unavailable Primary Care Provider Unavailabl e Reason for Visit * Diagnostic Imaging (Routine) - Closed Specialty Diagnoses / Procedures Referred By Chasity t Referred To Contact Procedures Breast Imaging Screening Outside Reference Patricia Powell NP Phone: tel: fax: Referral ID Status Reason Start Date Expiration Date Visits Re quested Visits Authorized [id number] Closed 02/02/2022 03/04/2023 1 1 Encounter Details Date Type Department Care Team (Late st Contact Info) Description 11/05/2016 Hospital Encounter [facility] [address] [place] [id number] Social History Tobacco Use Types Packs/Day Years [...] on file Legal Sex Female 4:24 AM VALVE REPAIRER Gender Identity Not on file Sexual Orientation [...] SCREENING OUTSIDE REFERENCE Routine 11/05/2016 12:00 AM VALVE REPAIRER documented in this encounter Results * Breast Imaging Screening Outside Reference (11/05/2016 12:00 AM VALVE REPAIRER) Impressions [facility] - 02/02/2022 3:04 PM CDT These images are for Reference purposes only and have not been reviewed by [facility] Radiology. There will be no report generated by a [facility] Radiologist. Narrative [facility] - 02/02/2022 3:04 PM CDT EXAMINATION: Images For Reference Purposes Only us Patricia Powell INSPECTOR [place] IMG MAMMO PROCEDURES Fin al Result [facility] documented in this encounter Visit Diagnoses Not on filedocumented in this encounter Additional Health Concerns Infection Onset Date Last Indicated Resolved Time COVID: Suspected 11/13/2021 11/13/2021 11/13/2021 2:41 PM VALVE REPAIRER documented as of this encounter
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
--- OUTSIDE RECORDS SUMMARY | 2025-02-11 18:54 | XMS_ITS | Encounter Summary ---
Author Organization [facility] Address [address] [place] [address] Phone Care Team Providers Care Bacteriologist Soil Name Role Phone Laurita German Primary Care Provider [phone] Unknown, Notinfile Unavailable Unavailable Suhail Marie MD Unavailable [phone] Robin Pimentel MD Unavailable Tsering Hoff Primary Care Provider [phone] Ceci Garcia ORAL SURGEON Primary Care Provide r Encounter Details Date Type Department Care Team (Late st Contact Info) Description 05/29/2020 Documentation [facility] [address] [place] [address] Dilan Marroquin RPh Social History Tobacco Use [...] file Legal Sex Female 4:24 AM BIAS MACHINE OPERATOR Gender Identity Not on file Sexual Orientation Not on file 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 on file Not on file Not on file documented as of this encounter Plan of Treatment Not on file documented as of this encounter Visit Diagnoses Not on filedocumented in this encounter Additional Health Concerns Infection Onset Date Last Indicated Resolved Time COVID: Suspected 11/13/2021 11/13/2021 11/13/2021 2:41 PM BIAS MACHINE OPERATOR documented as of this encounter Care Teams Bacteriologist Soil Relationship Specialty Start Date End Date Laurita German PA PCP - General 04/18/20 04/19/24 [place] [address] [employer] [address] [id number] PCP - General Physician Marketing Assistant Manager 04/20/24 01/04/25 [place] [id number] [employer] [place] [address] [place] [id number] PCP - General Nurse Practitioner 01/05/25 Unknown, Notinfile Referring Physician 10/17/20 07/27/23 Suhail Marie MD [address] [place] [address] Internal Medicine 07/28/23 Robin Pimentel MD [address] [place], [place] [phone] Internal Medicine 07/28/23 documented as of this encounter
--- OUTSIDE RECORDS SUMMARY | 2025-02-11 18:54 | XMS_ITS | Encounter Summary ---
Author Organization [facility] Healthcare Address [address] [place] [address] Care Team Providers Care Rn Lactation Consultant Name Role Phone Unavailable Primary Care Provider Unavailabl e Reason for Visit * Diagnostic Imaging (Routine) - Closed Specialty Diagnoses / Procedures Referred By Contsmiley t Referred To Contact Procedures Breast Imaging US Outside Reference Patricia Powell NP Phone: tel: fax: Referral ID Status Reason Start Date Expiration Date Visits Re quested Visits Authorized [id number] Closed 02/02/2022 03/04/2023 1 1 Encounter Details Date Type Department Care Team (Late st Contact Info) Description 11/11/2016 Hospital Encounter [facility] Radiology [facility] [address] [place] [id number] Social History Tobacco Use Types Packs/Day Years [...] on file Legal Sex Female 4:24 AM COMPUTER NUMERICAL CONTROL PROGRAMMER Gender Identity Not on file Sexual Orientation Not on file 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 There will be no report generated by a [facility] Radiologist. Narrative [facility] - 02/02/2022 3:03 PM CDT EXAMINATION: Images For Reference Purposes Only us Patricia Powell PLUMBING CONTRACTOR IMG MAMMO PROCEDURES Fin al Result [facility] documented in this encounter Visit Diagnoses Not on filedocumented in this encounter Additional Health Concerns Infection Onset Date Last Indicated Resolved Time COVID: Suspected 11/13/2021 11/13/2021 11/13/2021 2:41 PM COMPUTER NUMERICAL CONTROL PROGRAMMER documented as of this encounter
--- OUTSIDE RECORDS SUMMARY | 2025-02-11 18:54 | XMS_ITS | Encounter Summary ---
Author Organization [facility] Address [address] [place] [address] Phone Care Team Providers Care Riprap Placing Supervisor Name Role Phone Laurita German PAC Primary Care Provider [phone] Encounter Details Date Type Department Care Team (Late st Contact Info) Description 04/17/2020 Telephone [facility] [address] [place] [address] Anthony Jacobson MD [address] [place] [phone] Social History Tobacco Use Types Packs/Day [...] because she is seeing another doctor at [facility]. documented in this encounter Plan of Treatment Not on file documented as of this encounter Visit Diagnoses Not on filedocumented in this encounter Care Teams Riprap Placing Supervisor Relationship Specialty Start Date End Date Laurita German, PAC PCP - General Physician Principal Account Clerk 04/03/20 documented as of this encounter
--- OUTSIDE RECORDS SUMMARY | 2025-02-11 18:54 | XMS_ITS | Encounter Summary ---
Author Organization [facility] Healthcare Address [address] [place] [address] Care Team Providers Care Wildfire Prevention Specialist Name Role Phone Unavailable Primary Care Provider Unavailabl e Reason for Visit * Diagnostic Imaging (Routine) - Closed Specialty Diagnoses / Procedures Referred By Chasity t Referred To Contact Procedures Breast Imaging Screening Outside Reference Patricia Powell NP Phone: tel: fax: Referral ID Status Reason Start Date Expiration Date Visits Re quested Visits Authorized [id number] Closed 02/02/2022 03/04/2023 1 1 Encounter Details Date Type Department Care Team (Late st Contact Info) Description 04/01/2015 Hospital Encounter [facility] [address] [place] [address] Social History Tobacco Use Types Packs/Day Years [...] on file Legal Sex Female 4:24 AM SOCK BOARDER Gender Identity Not on file Sexual Orientation Not on file 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 There will be no report generated by a [facility] Radiologist. Narrative [facility] - 02/02/2022 3:04 PM CDT EXAMINATION: Images For Reference Purposes Only us Patricia Powell CRANE MANAGER IMG MAMMO PROCEDURES Fin al Result [facility] documented in this encounter Visit Diagnoses Not on filedocumented in this encounter Additional Health Concerns Infection Onset Date Last Indicated Resolved Time COVID: Suspected 11/13/2021 11/13/2021 11/13/2021 2:41 PM SOCK BOARDER documented as of this encounter
--- OUTSIDE RECORDS SUMMARY | 2025-02-11 18:54 | XMS_ITS | Clinical Summary ---
Author Organization [facility] Address [address], [facility] [address] [place] [address] Phone Care Team Providers Care Activities Director Scouting Name Role Phone Laurita German Primary Care Provider [phone] Social History Tobacco Use Types Packs/Day Years Used Date Smoking Tobacco: Never Assessed Comments Unknown Sex and Gender Information Value Date Recorded Sex Assigned at Not on file Legal Sex Female 8:17 AM CDT Gender Identity Not on file Sexual Orientation Not on file Plan of Treatment Not on file Insurance [employer] Care Teams Activities Director Scouting Relationship Specialty Start Date End Date Laurita German, FLACO PCP - General Physician Ocean Export Agent 04/03/20
--- OUTSIDE RECORDS SUMMARY | 2025-02-11 18:54 | XMS_ITS | Encounter Summary ---
Author Organization [facility] Healthcare Address [address] [place] [address] Care Team Providers Care Fraud Prevention Analyst Name Role Phone Suhail Marie MD Unavailable [phone] Robin Pimentel MD Unavailable [phone] Tsering Hoff Primary Care Provider [phone] Ceci Garcia NP Primary Care Provide r Encounter Details Date Type Department Care Team (Late st Contact Info) Description 06/05/2024 Treatment [facility] PATHOLOGY [address] [facility] [address] [place] [address] Mary Jennings MD [address] 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 Patient has [...] this patient. Contact Information: Please contact the [facility] Transfusion Medicine Service at (option 1) [...] on filedocumented in this encounter Care Teams Fraud Prevention Analyst Relationship Specialty [place] [address] [facility] [address] [address] PCP - General Physician Curtain Cleaner 04/20/24 01/04/25 [place] [id number] [facility] [address] [address] PCP - General Nurse Practitioner 01/05/25 Suhail Marie MD [address] [place] [address] Internal Medicine 07/28/23 Robin Pimentel MD [address] [place] [address] Internal Medicine 07/28/23 documented as of this encounter
--- OUTSIDE RECORDS SUMMARY | 2025-02-11 18:54 | XMS_ITS | Encounter Summary ---
Author Organization [facility] Healthcare Address [address] [place] [address] Care Team Providers Care Membership Director Name Role Phone Unavailable Primary Care Provider Unavailabl e Reason for Visit * Diagnostic Imaging (Routine) - Closed Specialty Diagnoses / Procedures Referred By Chasity t Referred To Contact Procedures Breast Imaging Diagnostic Outside Reference Patricia Powell NP Phone: tel: fax: Referral ID Status Reason Start Date Expiration Date Visits Re quested Visits Authorized [id number] Closed 02/02/2022 03/04/2023 1 1 Encounter Details Date Type Department Care Team (Late st Contact Info) Description 04/09/2015 12:05 AM CDT Hospital Encounter [facility] Radiology [facility] [address] [place] [id number] Social History Tobacco Use Types Packs/Day Years [...] on file Legal Sex Female 4:24 AM CHUCKING LATHE OPERATOR Gender Identity Not on file Sexual Orientation Not on file 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 There will be no report generated by a [facility] Radiologist. Narrative [facility] - 02/02/2022 3:04 PM CDT EXAMINATION: Images For Reference Purposes Only us Patricia Powell NP IMG MAMMO PROCEDURES Fin al Result [facility] documented in this encounter Visit Diagnoses Not on filedocumented in this encounter Additional Health Concerns Infection Onset Date Last Indicated Resolved Time COVID: Suspected 11/13/2021 11/13/2021 11/13/2021 2:41 PM CHUCKING LATHE OPERATOR documented as of this encounter
--- OUTSIDE RECORDS SUMMARY | 2025-02-11 18:54 | XMS_ITS | Encounter Summary ---
Author Organization [facility] Healthcare Address [address] [place] [address] Care Team Providers Care Sugar Controller Name Role Phone Laurita German Primary Care Provider [phone] Unknown, Notinfile Unavailable Unavailable Suhail Marie MD Unavailable [phone] Robin Pimentel MD Unavailable [phone] Tsering Hoff Primary Care Provider [phone] Ceci Garcia CHOIR SINGER Primary Care Provide r Encounter Details Date Type Department Care Team (Late st Contact Info) Description 06/10/2020 Telephone [facility] Radiology [address] [address] Joselin Garza RN Social History Tobacco Use [...] on file Legal Sex Female 4:24 AM DECKER OPERATOR Gender Identity Not on file Sexual Orientation Not on file 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 Not on file Not on file documented as of this encounter Plan of Treatment Not on file documented as of this encounter Visit Diagnoses Not on filedocumented in this encounter Additional Health Concerns Infection Onset Date Last Indicated Resolved Time COVID: Suspected 11/13/2021 11/13/2021 11/13/2021 2:41 PM DECKER OPERATOR documented as of this encounter Care Teams Sugar Controller Relationship Specialty Start Date End Date Laurita German PA PCP - General 04/18/20 04/19/24 [place] [address] [employer] [address] [id number] PCP - General Physician Meat Market Manager 04/20/24 01/04/25 [place] [id number] [email or web address] [address] [id number] PCP - General Nurse Practitioner 01/05/25 Unknown, Notinfile Referring Physician 10/17/20 07/27/23 Suhail Marie MD [address] [place] [address] Internal Medicine 07/28/23 Robin Pimentel MD [address] [place] [address] Internal Medicine 07/28/23 documented as of this encounter
--- OUTSIDE RECORDS SUMMARY | 2025-02-11 18:54 | XMS_ITS | Encounter Summary ---
Author Organization [facility] Healthcare Address [address] [place] [address] Care Team Providers Care Avionics Shop Supervisor Name Role Phone Mike Douglass MD Primary Care Provider [phone] Reason for Visit * Diagnostic Imaging (Routine) - Closed Specialty Diagnoses / Procedures Referred By Chasity vanegas Referred To Contact Procedures Breast Imaging Screening Outside Reference Patricia Powell NP Phone: tel: fax: Referral ID Status Reason Start Date Expiration Date Visits Re quested Visits Authorized [id number] Closed 02/02/2022 03/04/2023 1 1 Encounter Details Date Type Department Care Team (Late st Contact Info) Description 12/28/2018 12:05 AM CDT Hospital Encounter [facility] Radiology [facility] [address] [place] [id number] Social History Tobacco Use Types Packs/Day [...] on file Legal Sex Female 4:24 AM MUSICAL INSTRUMENT SUPERVISOR Gender Identity Not on file Sexual Orientation Not on file 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 There will be no report generated by a [facility] Radiologist. Narrative [facility] - 02/02/2022 3:09 PM CDT EXAMINATION: Images For Reference Purposes Only us Patricia Powell NEGOTIATOR SALES IMG MAMMO PROCEDURES Fin al Result [facility] documented in this encounter Visit Diagnoses Not on filedocumented in this encounter Additional Health Concerns Infection Onset Date Last Indicated Resolved Time COVID: Suspected 11/13/2021 11/13/2021 11/13/2021 2:41 PM MUSICAL INSTRUMENT SUPERVISOR documented as of this encounter Care Teams Avionics Shop Supervisor Relationship Specialty Start Date End Date Mike Douglass MD [address] [place] [id number] PCP - General Family Medicine 03/21/18 07/02/19 documented as of this encounter
--- OUTSIDE RECORDS SUMMARY | 2025-02-11 18:54 | XMS_ITS | Clinical Summary ---
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 Performing Organization Address [facility] Co de Phone Number [facility] Department [place] [address] * (ABNORMAL) eGFR (01/06/2025 4:47 AM CDT) Pathologist [facility] eGFR 35(L) >=60 mL/min/1. 73 m2 Comment: [...] ORDERABLES Marbella l Result Performing Organization Address [facility] Co de Phone Number [facility] Department [place] [address] * (ABNORMAL) Differential, auto (01/06/2025 4:47 AM CDT) Pathologist [facility] Neutrophil abs 3.43 1.50 - 6.50 K/cumm Imm gran abs 0.02 0.00 - 0.10 K/cumm [facility] Lymphocyte abs 0.59(L) 0.80 - 3.30 K/cumm [facility] Monocyte abs 0.59 0.20 - 0.80 K/cumm [facility] Eosinophil abs 0.03 0.00 - 0.50 K/cumm [facility] Basophil abs 0.02 0.00 - 0.10 K/cumm [facility] Neutrophil pct 73.4 % [facility] Comment: Interpretive Data Percent cell count reference ranges are not reported, since discordance with absolute values may lead to misinterpretation of CBC data. Current Interpretive Data was last revised on 2017. Imm gran pct 0.4 % [facility] Comment: Interpretive Data Percent cell count reference ranges are not reported, since discordance with absolute values may lead to misinterpretation of CBC data. Current Interpretive Data was last revised on 2017. Lymphocyte pct 12.6 % [facility] Comment: Interpretive Data Percent cell count reference ranges are not reported, since discordance with absolute values may lead to misinterpretation of CBC data. Current Interpretive Data was last revised on 2017. Monocyte pct 12.6 % [facility] Comment: Interpretive Data Percent cell count reference ranges are not reported, since discordance with absolute values may lead to misinterpretation of CBC data. Current Interpretive Data was last revised on 2017. Eosinophil pct 0.6 % [facility] Comment: Interpretive Data Percent cell count reference ranges are not reported, since discordance with absolute values may lead to misinterpretation of CBC data. Current Interpretive Data was last revised on 2017. Basophil pct 0.4 % [facility] Comment: Interpretive Data Percent cell count reference ranges are not reported, since discordance with absolute values may lead to misinterpretation of CBC data. Current Interpretive Data was last revised on 2017. Blood 01/06/2025 4:47 AM CDT 01/06/2025 5:27 AM CDT us Belem Menchaca MD LAB BLOOD ORDERABLES Marbella jeong Result [facility] Department [place] [address] * (ABNORMAL) CBC with auto differential (01/06/2025 4:47 AM CDT) [facility] WBC 4.68 3.80 - 9.90 K/cumm Hgb 6.9(L) 11.9 - 15.5 g/dL [facility] Hct 19.9(L) 35.6 - 45.5 % [facility] Plt 171 150 - 400 K/cumm [facility] MPV 11.4 9.1 - 12.3 fL [facility] RBC 1.77(L) 3.90 - 5.20 M/cumm [facility] MCV 112.4(H) 81.3 - 96.4 fL [facility] MCH 39.0(H) 27.1 - 33.3 pg [facility] MCHC 34.7 32.3 - 35.7 g/dL [facility] RDW CV 15.9(H) 11.1 - 14.9 % [facility] RDW SD 65.1(H) 35.7 - 48.1 fL [facility] NRBC abs 0.00 0.00 - 0.01 K/cumm [facility] Blood 01/06/2025 4:47 AM CDT 01/06/2025 5:27 AM CDT Belem Menchaca MD LAB BLOOD ORDERABLES Marbella l Result [facility] Department [place] [address] * (ABNORMAL) aPTT (01/06/2025 4:47 AM CDT) [facility] aPTT 27(L) 28 - 38 sec Comment: Interpretive Data Heparin therapeutic range: 66.0 - 100.0 seconds. Range based on correlation with therapeutic heparin activity range of 0.3 - 0.7 Units/mL. Current interpretive data was last revised on 2023. Blood 01/06/2025 4:47 AM CDT 01/06/2025 5:43 AM CDT Belem Menchaca MD LAB BLOOD ORDERABLES Marbella l Result Performing Organization Address [facility] [place] [address] * Protime-INR (01/06/2025 4:47 AM CDT) PT 12.5 9.7 - 13.0 sec INR 1.15 0.90 - 1.20 [facility] Comment: Interpretive data Oral anticoagulant [...] ORDERABLES Marbella l Result Performing Organization Address [facility] [place] [address] * (ABNORMAL) CA 125 (01/06/2025 4:47 AM [...] ORDERABLES Marbella l Result Performing Organization Address [facility] Co de Phone Number [place] [address] * Phosphorus (01/06/2025 4:47 AM CDT) [facility] Phosphorus, pl 3.3 2.3 - 4.5 mg/dL Blood 01/06/2025 4:47 AM CDT 01/06/2025 5:27 AM CDT Belem Menchaca MD LAB BLOOD ORDERABLES Marbella l Result Performing Organization Address City/[facility]/ZIP Co de Phone Number [facility] Department [place] [address] * Magnesium (01/06/2025 4:47 AM CDT) [facility] Magnesium 1.4 1.4 - 2.5 mg/dL Blood 01/06/2025 4:47 AM CDT 01/06/2025 5:27 AM CDT Belem Menchaca MD LAB BLOOD ORDERABLES Marbella l Result Performing Organization Address [facility] de Phone Number [facility] [place] [address] * (ABNORMAL) Comprehensive metabolic panel (01/06/2025 4:47 AM CDT) [facility] Sodium 140 135 - 145 mmol/L Potassium, pl 3.5 3.3 - 4.9 mmol/L [facility] Chloride 105 97 - 110 mmol/L [facility] CO2 25 22 - 32 mmol/L [facility] Anion gap 10 2 - 15 mmol/L [facility] BUN 14 6 - 25 mg/dL [facility] Creatinine 1.59(H) 0.60 - 1.10 mg/dL [facility] Glucose 107 70 - 199 mg/dL [facility] Comment: Interpretive Data Fasting glucose [...] Calcium 8.7 8.5 - 10.3 mg/dL [facility] Bilirubin, total 0.4 0.1 - 1.2 mg/dL [facility] Protein, pl 5.7(L) 6.5 - 8.5 g/dL [facility] Albumin 3.2(L) 3.5 - 5.0 g/dL [facility] Alk phos 120 40 - 130 Units/L [facility] ALT 12 7 - 45 Units/L [facility] AST 28 10 - 45 Units/L [facility] Blood 01/06/2025 4:47 AM CDT 01/06/2025 5:27 AM CDT Belem Menchaca MD LAB BLOOD ORDERABLES Marbella jeong Result [facility] [place] [address] * CT Abdomen Pelvis W Contrast (01/05/2025 [...] <=17 ng/L Comment: Interpretive Data For further [facility] resources including the diagnostic algorithm and an aid in interpretation, copy and paste this link: [email or web address] Current Interpretive Data last revised 2020. Trop I hs delta 1 ng/L [facility] Trop I hs interp Insignificant [facility] Blood 01/05/2025 8:06 PM CDT 01/05/2025 8:18 PM CDT Juventino Rousseau MD LAB BLOOD ORDERABLES Final R esult Performing Organization Address [facility] Co de Phone Number [facility] [place] [address] * Troponin I high-sensitivity series (baseline, 2hr, 4hr, 6hr) (01/05/2025 5:49 PM CDT) Pathologist [facility] Trop I hs 5 <=17 ng/L Comment: Interpretive Data For further hscTnI resources including the diagnostic algorithm and an aid in interpretation, copy and paste this link: [email or web address] Current Interpretive Data last revised 2020. Blood 01/05/2025 5:49 PM CDT 01/05/2025 6:02 PM CDT us Anthony Clay MD LAB BLOOD ORDERABLES Final Res ult Performing Organization Address [facility]/ZIP Co de Phone Number [facility] [place] [address] * (ABNORMAL) eGFR (01/05/2025 5:49 PM CDT) Pathologist [facility] eGFR 30(L) >=60 mL/min/1. 73 m2 Comment: [...] MD LAB BLOOD ORDERABLES Final R esult [facility] [place] [address] * (ABNORMAL) Differential, auto (01/05/2025 5:49 PM CDT) Pathologist [facility] Neutrophil abs 3.58 1.50 - 6.50 K/cumm Imm gran abs 0.02 0.00 - 0.10 K/cumm [facility] Lymphocyte abs 0.67(L) 0.80 - 3.30 K/cumm [facility] Monocyte abs 0.56 0.20 - 0.80 K/cumm [facility] Eosinophil abs 0.04 0.00 - 0.50 K/cumm [facility] Basophil abs 0.02 0.00 - 0.10 K/cumm [facility] Neutrophil pct 73.2 % [facility] Comment: Interpretive Data Percent cell count reference ranges are not reported, since discordance with absolute values may lead to misinterpretation of CBC data. Current Interpretive Data was last revised on 2017. Imm gran pct 0.4 % [facility] Comment: Interpretive Data Percent cell count reference ranges are not reported, since discordance with absolute values may lead to misinterpretation of CBC data. Current Interpretive Data was last revised on 2017. Lymphocyte pct 13.7 % [facility] Comment: Interpretive Data Percent cell count reference ranges are not reported, since discordance with absolute values may lead to misinterpretation of CBC data. Current Interpretive Data was last revised on 2017. Monocyte pct 11.5 % [facility] Comment: Interpretive Data Percent cell count reference ranges are not reported, since discordance with absolute values may lead to misinterpretation of CBC data. Current Interpretive Data was last revised on 2017. Eosinophil pct 0.8 % [facility] Comment: Interpretive Data Percent cell count reference ranges are not reported, since discordance with absolute values may lead to misinterpretation of CBC data. Current Interpretive Data was last revised on 2017. Basophil pct 0.4 % [facility] Comment: Interpretive Data Percent cell count reference ranges are not reported, since discordance with absolute values may lead to misinterpretation of CBC data. Current Interpretive Data was last revised on 2017. Blood 01/05/2025 5:49 PM CDT 01/05/2025 6:03 PM CDT us Juventino Rousseau MD LAB BLOOD ORDERABLES Final R esult [facility] Department [place] [address] * (ABNORMAL) CBC with auto differential (01/05/2025 5:49 PM CDT) WBC 4.89 3.80 - 9.90 K/cumm Hgb 7.7(L) 11.9 - 15.5 g/dL [facility] Hct 22.3(L) 35.6 - 45.5 % [facility] Plt 215 150 - 400 K/cumm [facility] MPV 10.9 9.1 - 12.3 fL [facility] RBC 2.01(L) 3.90 - 5.20 M/cumm [facility] MCV 110.9(H) 81.3 - 96.4 fL [facility] MCH 38.3(H) 27.1 - 33.3 pg [facility] MCHC 34.5 32.3 - 35.7 g/dL [facility] RDW CV 15.7(H) 11.1 - 14.9 % [facility] RDW SD 63.2(H) 35.7 - 48.1 fL [facility] NRBC abs 0.00 0.00 - 0.01 K/cumm [facility] Blood Venous blood specimen / Unknown 01/05/2025 5:49 PM CDT 01/05/2025 6:03 PM CDT us Anthony Clay MD LAB BLOOD ORDERABLES Final Res ult [facility] Department [place] [address] * Lipase (01/05/2025 5:49 PM CDT) [facility] Lipase 20 10 - 99 Units/L Blood 01/05/2025 5:49 PM CDT 01/05/2025 6:02 PM CDT Leona Mcclure MD LAB BLOOD ORDERABLE S Final Result [facility] Department [place] [address] * (ABNORMAL) Comprehensive metabolic panel (01/05/2025 5:49 PM CDT) Pathologist [facility] Sodium 137 135 - 145 mmol/L Potassium, pl 4.1 3.3 - 4.9 mmol/L [facility] Chloride 101 97 - 110 mmol/L [facility] CO2 24 22 - 32 mmol/L [facility] Anion gap 12 2 - 15 mmol/L [facility] BUN 14 6 - 25 mg/dL [facility] Creatinine 1.83(H) 0.60 - 1.10 mg/dL [facility] Glucose 93 70 - 199 mg/dL [facility] Comment: Interpretive Data Fasting glucose [...] Calcium 9.2 8.5 - 10.3 mg/dL [facility] Bilirubin, total 0.4 0.1 - 1.2 mg/dL [facility] Protein, pl 6.3(L) 6.5 - 8.5 g/dL [facility] Albumin 3.5 3.5 - 5.0 g/dL [facility] Alk phos 136(H) 40 - 130 Units/L [facility] ALT 11 7 - 45 Units/L [facility] AST 23 10 - 45 Units/L [facility] Blood 01/05/2025 5:49 PM CDT 01/05/2025 6:02 PM CDT us Anthony Clay MD LAB BLOOD ORDERABLES Final Res ult [facility] [place] [address] * XR Chest Pa Lateral 2 Views [...] ECG 12-LEAD (01/05/2025 1:08 PM CDT) Narrative [facility] - 01/05/2025 1:08 [...] MD LAB BLOOD ORDERABLES Marbella jeong Result [facility] [place] [address] * (ABNORMAL) Differential, auto (01/01/2025 1:57 PM CDT) Neutrophil abs 3.49 1.50 - 6.50 K/cumm Imm gran abs 0.02 0.00 - 0.10 K/cumm [facility] Lymphocyte abs 0.73(L) 0.80 - 3.30 K/cumm [facility] Monocyte abs 0.65 0.20 - 0.80 K/cumm [facility] Eosinophil abs 0.14 0.00 - 0.50 K/cumm [facility] Basophil abs 0.04 0.00 - 0.10 K/cumm [facility] Neutrophil pct 68.8 % [facility] Comment: Interpretive Data Percent cell count reference ranges are not reported, since discordance with absolute values may lead to misinterpretation of CBC data. Current Interpretive Data was last revised on 2017. Imm gran pct 0.4 % [facility] Comment: Interpretive Data Percent cell count reference ranges are not reported, since discordance with absolute values may lead to misinterpretation of CBC data. Current Interpretive Data was last revised on 2017. Lymphocyte pct 14.4 % [facility] Comment: Interpretive Data Percent cell count reference ranges are not reported, since discordance with absolute values may lead to misinterpretation of CBC data. Current Interpretive Data was last revised on 2017. Monocyte pct 12.8 % [facility] Comment: Interpretive Data Percent cell count reference ranges are not reported, since discordance with absolute values may lead to misinterpretation of CBC data. Current Interpretive Data was last revised on 2017. Eosinophil pct 2.8 % [facility] Comment: Interpretive Data Percent cell count reference ranges are not reported, since discordance with absolute values may lead to misinterpretation of CBC data. Current Interpretive Data was last revised on 2017. Basophil pct 0.8 % [facility] Comment: Interpretive Data Percent cell count reference ranges are not reported, since discordance with absolute values may lead to misinterpretation of CBC data. Current Interpretive Data was last revised on 2017. Blood 01/01/2025 1:57 PM CDT 01/01/2025 2:27 PM CDT Belem Menchaca MD LAB BLOOD ORDERABLES Marbella jeong Result [facility] [place] [address] * (ABNORMAL) CBC with auto differential (01/01/2025 1:57 PM CDT) WBC 5.07 3.80 - 9.90 K/cumm Hgb 8.2(L) 11.9 - 15.5 g/dL [facility] Hct 24.3(L) 35.6 - 45.5 % [facility] Plt 228 150 - 400 K/cumm [facility] MPV 11.2 9.1 - 12.3 fL [facility] RBC 2.14(L) 3.90 - 5.20 M/cumm [facility] MCV 113.6(H) 81.3 - 96.4 fL [facility] MCH 38.3(H) 27.1 - 33.3 pg [facility] MCHC 33.7 32.3 - 35.7 g/dL [facility] RDW CV 15.9(H) 11.1 - 14.9 % [facility] RDW SD 66.4(H) 35.7 - 48.1 fL [facility] NRBC abs 0.02(H) 0.00 - 0.01 K/cumm [facility] Blood 01/01/2025 1:57 PM CDT 01/01/2025 2:27 PM CDT us Belem Menchaca MD LAB BLOOD ORDERABLES Marbella jean-paul Result [facility] [place] [address] * (ABNORMAL) Comprehensive metabolic panel (01/01/2025 1:57 PM CDT) Sodium 139 135 - 145 mmol/L Potassium, pl 4.6 3.3 - 4.9 mmol/L [facility] Chloride 104 97 - 110 mmol/L [facility] CO2 26 22 - 32 mmol/L [facility] Anion gap 9 2 - 15 mmol/L [facility] BUN 11 6 - 25 mg/dL [facility] Creatinine 1.84(H) 0.60 - 1.10 mg/dL [facility] Glucose 105 70 - 199 mg/dL [facility] Comment: Interpretive Data Fasting glucose [...] 2022. Calcium 9.5 8.5 - 10.3 mg/dL [facility] Bilirubin, total 0.3 0.1 - 1.2 mg/dL [facility] Protein, pl 6.3(L) 6.5 - 8.5 g/dL [facility] Albumin 3.6 3.5 - 5.0 g/dL [facility] Alk phos 146(H) 40 - 130 Units/L [facility] ALT 10 7 - 45 Units/L [facility] AST 25 10 - 45 Units/L [facility] Blood 01/01/2025 1:57 PM CDT 01/01/2025 2:27 PM CDT Belem Menchaca MD LAB BLOOD ORDERABLES Marbella l Result Performing Organization Address City/[facility] Co de Phone Number [facility] [place] [address] * (ABNORMAL) eGFR (12/05/2024 11:21 AM CDT) [...] AM CDT 12/05/2024 12:00 PM CDT Belem Menchaca MD LAB BLOOD ORDERABLES Marbella l Result Performing Organization Address [facility]/ZIP Co de Phone Number [facility] [place] [address] * (ABNORMAL) Differential, auto (12/05/2024 11:21 AM CDT) Neutrophil abs 6.5 1.5 - 6.5 K/cumm Imm gran abs 0.0 0.0 - 0.1 K/cumm [facility] Lymphocyte abs 0.5(L) 0.8 - 3.3 K/cumm [facility] Monocyte abs 0.5 0.2 - 0.8 K/cumm [facility] Eosinophil abs 0.1 0.0 - 0.5 K/cumm [facility] Basophil abs 0.0 0.0 - 0.1 K/cumm [facility] Neutrophil pct 84.4 % [facility] Comment: Interpretive Data Percent cell count reference ranges are not reported, since discordance with absolute values may lead to misinterpretation of CBC data. Current Interpretive Data was last revised on 2017. Imm gran pct 0.5 % [facility] Comment: Interpretive Data Percent cell count reference ranges are not reported, since discordance with absolute values may lead to misinterpretation of CBC data. Current Interpretive Data was last revised on 2017. Lymphocyte pct 6.7 % [facility] Comment: Interpretive Data Percent cell count reference ranges are not reported, since discordance with absolute values may lead to misinterpretation of CBC data. Current Interpretive Data was last revised on 2017. Monocyte pct 6.7 % [facility] Comment: Interpretive Data Percent cell count reference ranges are not reported, since discordance with absolute values may lead to misinterpretation of CBC data. Current Interpretive Data was last revised on 2017. Eosinophil pct 1.2 % [facility] Comment: Interpretive Data Percent cell count reference ranges are not reported, since discordance with absolute values may lead to misinterpretation of CBC data. Current Interpretive Data was last revised on 2017. Basophil pct 0.5 % [facility] Comment: Interpretive Data Percent cell count reference ranges are not reported, since discordance with absolute values may lead to misinterpretation of CBC data. Current Interpretive Data was last revised on 2017. Blood 12/05/2024 11:2 1 AM CDT 12/05/2024 11:57 AM CDT Belem Menchaca MD LAB BLOOD ORDERABLES Marbella l Result Performing Organization Address City/[facility]/ZIP Co de Phone Number [facility] Department [place] [address] * (ABNORMAL) CBC with auto differential (12/05/2024 11:21 AM CDT) Pathologist [facility] WBC 7.6 3.8 - 9.9 K/cumm Hgb 8.8(L) 11.9 - 15.5 g/dL [facility] Hct 25.3(L) 35.6 - 45.5 % [facility] Plt 278 150 - 400 K/cumm [facility] MPV 10.9 9.1 - 12.3 fL [facility] RBC 2.29(L) 3.90 - 5.20 M/cumm [facility] MCV 110.5(H) 81.3 - 96.4 fL [facility] MCH 38.4(H) 27.1 - 33.3 pg [facility] MCHC 34.8 32.3 - 35.7 g/dL [facility] RDW CV 14.6 11.1 - 14.9 % [facility] RDW SD 59.4(H) 35.7 - 48.1 fL [facility] NRBC abs 0.03(H) 0.00 - 0.01 K/cumm [facility] Blood 12/05/2024 11:2 1 AM CDT 12/05/2024 11:57 AM CDT us Belem Menchaca MD LAB BLOOD ORDERABLES Marbella l Result Performing Organization Address City/[facility]/ZIP Co de Phone Number [facility] [place] [address] * (ABNORMAL) Comprehensive metabolic panel (12/05/2024 11:21 AM CDT) Pathologist [facility] Sodium 140 135 - 145 mmol/L Potassium, pl 4.4 3.3 - 4.9 mmol/L [facility] Chloride 103 97 - 110 mmol/L [facility] CO2 25 22 - 32 mmol/L [facility] Anion gap 12 2 - 15 mmol/L [facility] BUN 11 6 - 25 mg/dL [facility] Creatinine 1.70(H) 0.60 - 1.10 mg/dL [facility] Glucose 102 70 - 199 mg/dL [facility] Comment: Interpretive Data Fasting glucose [...] 2022. Calcium 10.1 8.5 - 10.3 mg/dL [facility] Bilirubin, total 0.4 0.1 - 1.2 mg/dL [facility] Protein, pl 7.3 6.5 - 8.5 g/dL [facility] Albumin 4.1 3.5 - 5.0 g/dL [facility] Alk phos 159(H) 40 - 130 Units/L [facility] ALT 10 7 - 45 Units/L [facility] AST 19 10 - 45 Units/L [facility] Blood 12/05/2024 11:2 1 AM CDT 12/05/2024 11:57 AM CDT us Belem Menchaca MD LAB BLOOD ORDERABLES Marbella l Result [facility] Department of Laboratories [place], [place] [id number] * Screening Mammogram Left W P[place]ep Unilateral Only (04/28/2024 2:23 PM CDT) Anatomical Region Laterality Modality Breast Left Mammography Narrative 05/01/2024 3:22 PM CDT Mammogram Technique: Left Breast Digital Breast Tomosynthesis, Unilateral C-view 2D Screening mammogram. Views obtained: left craniocaudal and left mediolateral oblique. Computer Aided Detection was performed. Mammogram Findings: The present examination has been compared to prior imaging studies performed at [facility]. [facility] on 12/28/2018, and at [facility] on 03/17/2022 and 03/24/2023. There are scattered [...] compared to prior imaging studies performed at [facility]. [facility] on 12/28/2018, andat [facility] on 03/17/2022 and 03/24/2023. There are scattered [...] Most Recently Relevant to Health Maintenance Insurance [facility] CMR [facility] HEALTH PLAN MEDICARE [facility] AETNA [facility] [id number] [facility] MEDICARE [facility] HEALTH PLAN SECONDARY MEDICARE R [facility] HEALTH PLAN SECONDARY Advance Directives For more information, please contact: [phone] * Full Code (Latest Code Status on [...] 8:01 PM 05/29/2020 8:17 PM Care Teams Hide Washer Relationship Specialty [place] [id number] [address] [address] PCP - General Nurse Practitioner 01/05/25 Suhail Marie MD [address] [place] [address] Internal Medicine 07/28/23 Robin Pimentel MD [address] [place] [address] Internal Medicine 07/28/23
--- OUTSIDE RECORDS SUMMARY | 2025-02-11 18:54 | XMS_ITS | Encounter Summary ---
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 There will be no report generated by a [facility] Radiologist. Narrative [facility]_M[facility]MO[facility] - 02/02/2022 3:03 PM CDT EXAMINATION: Images For Reference Purposes Only us Patricia Powell NP IMG MAMMO PROCEDURES Fin al Result [facility] documented in this encounter Visit Diagnoses Not on filedocumented in this encounter Additional Health Concerns Infection Onset Date Last Indicated Resolved Time COVID: Suspected 11/13/2021 11/13/2021 11/13/2021 2:41 PM PLANNING SUPERVISOR documented as of this encounter
--- OUTSIDE RECORDS SUMMARY | 2025-02-11 18:54 | XMS_ITS | Encounter Summary ---
Author Organization [facility] Healthcare Address [address] [place] [address] Care Team Providers Care Technology And Engineering Teacher Name Role Phone Mike Douglass MD Primary Care Provider [phone] Reason for Visit * Diagnostic Imaging (Routine) - Closed Specialty Diagnoses / Procedures Referred By Chasity vanegas Referred To Contact Procedures Breast Imaging Screening Outside Reference Patricia Powell NP Phone: tel: fax: Referral ID Status Reason Start Date Expiration Date Visits Re quested Visits Authorized [id number] Closed 02/02/2022 03/04/2023 1 1 Encounter Details Date Type Department Care Team (Late st Contact Info) Description 12/28/2018 Hospital Encounter [facility] [address] [place] [id number] Social History Tobacco Use Types Packs/Day [...] on file 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 Gender Identity Not on file Sexual [...] For Reference Purposes Only us Patricia Powell BUTCHER SUPERVISOR IMG MAMMO PROCEDURES Fin al Result [facility] documented in this encounter Visit Diagnoses Not on filedocumented in this encounter Additional Health Concerns Infection Onset Date Last Indicated Resolved Time COVID: Suspected 11/13/2021 11/13/2021 11/13/2021 2:41 PM HANDKERCHIEF MAKER documented as of this encounter Care Teams Technology And Engineering Teacher Relationship Specialty Start Date End Date Mike Douglass MD [address] [place] [address] PCP - General Family Medicine 03/21/18 07/02/19 documented as of this encounter
--- OUTSIDE RECORDS SUMMARY | 2025-02-11 18:54 | XMS_ITS | Encounter Summary ---
Author Organization [facility] Healthcare Address [address] [place] [address] Care Team Providers Care Behavioral Therapy Coordinator Name Role Phone Unavailable Primary Care Provider Unavailabl e Reason for Visit * Diagnostic Imaging (Routine) - Closed Specialty Diagnoses / Procedures Referred By Chasity t Referred To Contact Procedures Breast Imaging Diagnostic Outside Reference Patricia Powell NP Phone: tel: fax: Referral ID Status Reason Start Date Expiration Date Visits Re quested Visits Authorized [id number] Closed 02/02/2022 03/04/2023 1 1 Encounter Details Date Type Department Care Team (Late st Contact Info) Description 11/11/2016 12:05 AM MILIEU COORDINATOR Hospital Encounter [facility] [address] [place] [id number] Social History Tobacco Use Types Packs/Day Years [...] on file Legal Sex Female 4:24 AM MILIEU COORDINATOR Gender Identity Not on file Sexual Orientation [...] DIAGNOSTIC OUTSIDE REFERENCE Routine 11/11/2016 12:05 AM MILIEU COORDINATOR documented in this encounter Results * Breast Imaging Diagnostic Outside Reference (11/11/2016 12:05 AM MILIEU COORDINATOR) Impressions RAD_MAMMO[facility] - 02/02/2022 3:05 PM CDT These images are for Reference purposes only and have not been reviewed by [facility] Radiology. There will be no report generated by a [facility] Radiologist. Narrative RAD_MAMMO_[facility] - 02/02/2022 3:05 PM CDT EXAMINATION: Images For Reference Purposes Only us Patricia Powell WOOD [employer]VER IMG MAMMO PROCEDURES Fin al Result [facility] documented in this encounter Visit Diagnoses Not on filedocumented in this encounter Additional Health Concerns Infection Onset Date Last Indicated Resolved Time COVID: Suspected 11/13/2021 11/13/2021 11/13/2021 2:41 PM MILIEU COORDINATOR documented as of this encounter
--- OUTSIDE RECORDS SUMMARY | 2025-02-11 18:55 | XMS_ITS | Referral Summary ---
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 [facility] Lymphocyte abs 0.59(L) 0.80 - 3.30 K/cumm [facility] Monocyte abs 0.59 0.20 - 0.80 K/cumm [facility] Eosinophil abs 0.03 0.00 - 0.50 K/cumm [facility] Basophil abs 0.02 0.00 - 0.10 K/cumm [facility] Neutrophil pct 73.4 % [facility] Comment: Interpretive Data Percent cell count reference ranges are not reported, since discordance with absolute values may lead to misinterpretation of CBC data. Current Interpretive Data was last revised on 2017. Imm gran pct 0.4 % [facility] Comment: Interpretive Data Percent cell count reference ranges are not reported, since discordance with absolute values may lead to misinterpretation of CBC data. Current Interpretive Data was last revised on 2017. Lymphocyte pct 12.6 % [facility] Comment: Interpretive Data Percent cell count reference ranges are not reported, since discordance with absolute values may lead to misinterpretation of CBC data. Current Interpretive Data was last revised on 2017. Monocyte pct 12.6 % [facility] Comment: Interpretive Data Percent cell count reference ranges are not reported, since discordance with absolute values may lead to misinterpretation of CBC data. Current Interpretive Data was last revised on 2017. Eosinophil pct 0.6 % [facility] Comment: Interpretive Data Percent cell count reference ranges are not reported, since discordance with absolute values may lead to misinterpretation of CBC data. Current Interpretive Data was last revised on 2017. Basophil pct 0.4 % [facility] Comment: Interpretive Data Percent cell count reference ranges are not reported, since discordance with absolute values may lead to misinterpretation of CBC data. Current Interpretive Data was last revised on 2017. Blood 01/06/2025 4:47 AM CDT 01/06/2025 5:27 AM CDT us Belem Menchaca MD LAB BLOOD ORDERABLES Marbella jeong Result [facility] [place] [address] * (ABNORMAL) CBC with auto differential (01/06/2025 4:47 AM CDT) WBC 4.68 3.80 - 9.90 K/cumm Hgb 6.9(L) 11.9 - 15.5 g/dL [facility] Hct 19.9(L) 35.6 - 45.5 % [facility] Plt 171 150 - 400 K/cumm [facility] MPV 11.4 9.1 - 12.3 fL [facility] RBC 1.77(L) 3.90 - 5.20 M/cumm [facility] MCV 112.4(H) 81.3 - 96.4 fL [facility] MCH 39.0(H) 27.1 - 33.3 pg [facility] MCHC 34.7 32.3 - 35.7 g/dL [facility] RDW CV 15.9(H) 11.1 - 14.9 % [facility] RDW SD 65.1(H) 35.7 - 48.1 fL [facility] NRBC abs 0.00 0.00 - 0.01 K/cumm [facility] Blood 01/06/2025 4:47 AM CDT 01/06/2025 5:27 AM CDT Belem Menchaca MD LAB BLOOD ORDERABLES Marbella l Result Performing Organization Address [facility] de Phone Number [facility] [place] [employer] [place] [address] * (ABNORMAL) aPTT (01/06/2025 4:47 AM CDT) [...] ORDERABLES Marbella l Result Performing Organization Address City/[facility] de Phone Number [facility] [place] [place] [address] * Protime-INR (01/06/2025 4:47 AM CDT) PT 12.5 9.7 - 13.0 sec INR 1.15 0.90 - 1.20 [facility] Comment: Interpretive data Oral anticoagulant therapeutic ranges: Venous thromboembolism prophylaxis or treatment: 2.0-3.0 CARDIOLOGY Standard range: 2.0-3.0 High-intensity range: 2.5-3.5 Refer to indication-specific guidelines for appropriate target ranges for prosthetic heart valve replacement. Current interpretive data was last revised on 2019. Blood 01/06/2025 4:47 AM CDT 01/06/2025 5:43 AM CDT Belem Menchaca MD LAB BLOOD ORDERABLES Marbella l Result Performing Organization Address City/[facility] Co de Phone Number [facility] [place] [employer] [place] [address] * (ABNORMAL) CA 125 (01/06/2025 4:47 AM CDT) Pathologist [facility] CA 125 ag 40.2(H) 0.0 - 38.1 units/mL Comment: Interpretive Data [employer] CA 125 assay procedure was used. Results from different manufacturers or methods may not be comparable. Serial testing should be performed using the same method. Blood 01/06/2025 4:47 AM CDT 01/06/2025 5:27 AM CDT Belem Menchaca MD LAB BLOOD ORDERABLES Marbella l Result Performing Organization Address [facility] de Phone Number [facility] [place] [place] [address] * Phosphorus (01/06/2025 4:47 AM CDT) Pathologist [facility] Phosphorus, pl 3.3 2.3 - 4.5 mg/dL Blood 01/06/2025 4:47 AM CDT 01/06/2025 5:27 AM CDT Belem Menchaca MD LAB BLOOD ORDERABLES Marbella l Result Performing Organization Address [facility] Co de Phone Number [facility] [place] [employer] [place] [address] * Magnesium (01/06/2025 4:47 AM CDT) Magnesium 1.4 1.4 - 2.5 mg/dL Blood 01/06/2025 4:47 AM CDT 01/06/2025 5:27 AM CDT Belem Menchaca MD LAB BLOOD ORDERABLES Marbella l Result [facility] [place] [address] * (ABNORMAL) Comprehensive metabolic panel (01/06/2025 4:47 AM CDT) Pathologist [facility] Sodium 140 135 - 145 mmol/L Potassium, pl 3.5 3.3 - 4.9 mmol/L [facility] Chloride 105 97 - 110 mmol/L [facility] CO2 25 22 - 32 mmol/L [facility] Anion gap 10 2 - 15 mmol/L [facility] BUN 14 6 - 25 mg/dL [facility] Creatinine 1.59(H) 0.60 - 1.10 mg/dL [facility] Glucose 107 70 - 199 mg/dL [facility] Comment: Interpretive Data Fasting glucose >/= [...] 2022. Calcium 8.7 8.5 - 10.3 mg/dL [facility] Bilirubin, total 0.4 0.1 - 1.2 mg/dL [facility] Protein, pl 5.7(L) 6.5 - 8.5 g/dL [facility] Albumin 3.2(L) 3.5 - 5.0 g/dL [facility] Alk phos 120 40 - 130 Units/L [facility] ALT 12 7 - 45 Units/L [facility] AST 28 10 - 45 Units/L [facility] Blood 01/06/2025 4:47 AM CDT 01/06/2025 5:27 AM CDT us Belem Menchaca MD LAB BLOOD ORDERABLES Marbella l Result [facility] One [facility] [place] [address] * CT Abdomen Pelvis W Contrast (01/05/2025 [...] ORDERABLES Final R esult JYOTI ZUNIGA [facility] [place] [address] * Troponin I high-sensitivity series (baseline, 2hr, [...] LAB BLOOD ORDERABLES Final Res ult [facility] [place] [address] * (ABNORMAL) eGFR (01/05/2025 5:49 PM CDT) [...] MD LAB BLOOD ORDERABLES Final R esult [facility] [place] [address] * (ABNORMAL) Differential, auto (01/05/2025 5:49 PM CDT) Neutrophil abs 3.58 1.50 - 6.50 K/cumm Imm gran abs 0.02 0.00 - 0.10 K/cumm [facility] Lymphocyte abs 0.67(L) 0.80 - 3.30 K/cumm [facility] Monocyte abs 0.56 0.20 - 0.80 K/cumm [facility] Eosinophil abs 0.04 0.00 - 0.50 K/cumm [facility] Basophil abs 0.02 0.00 - 0.10 K/cumm [facility] Neutrophil pct 73.2 % [facility] Comment: Interpretive Data Percent cell count reference ranges are not reported, since discordance with absolute values may lead to misinterpretation of CBC data. Current Interpretive Data was last revised on 2017. Imm gran pct 0.4 % [facility] Comment: Interpretive Data Percent cell count reference ranges are not reported, since discordance with absolute values may lead to misinterpretation of CBC data. Current Interpretive Data was last revised on 2017. Lymphocyte pct 13.7 % [facility] Comment: Interpretive Data Percent cell count reference ranges are not reported, since discordance with absolute values may lead to misinterpretation of CBC data. Current Interpretive Data was last revised on 2017. Monocyte pct 11.5 % [facility] Comment: Interpretive Data Percent cell count reference ranges are not reported, since discordance with absolute values may lead to misinterpretation of CBC data. Current Interpretive Data was last revised on 2017. Eosinophil pct 0.8 % [facility] Comment: Interpretive Data Percent cell count reference ranges are not reported, since discordance with absolute values may lead to misinterpretation of CBC data. Current Interpretive Data was last revised on 2017. Basophil pct 0.4 % [facility] Comment: Interpretive Data Percent cell count reference ranges are not reported, since discordance with absolute values may lead to misinterpretation of CBC data. Current Interpretive Data was last revised on 2017. Blood 01/05/2025 5:49 PM CDT 01/05/2025 6:03 PM CDT us Juventino Rousseau MD LAB BLOOD ORDERABLES Final R esult [facility] One [facility] [place] [address] * (ABNORMAL) CBC with auto differential (01/05/2025 5:49 PM CDT) WBC 4.89 3.80 - 9.90 K/cumm Hgb 7.7(L) 11.9 - 15.5 g/dL [facility] Hct 22.3(L) 35.6 - 45.5 % [facility] Plt 215 150 - 400 K/cumm [facility] MPV 10.9 9.1 - 12.3 fL [facility] RBC 2.01(L) 3.90 - 5.20 M/cumm [facility] MCV 110.9(H) 81.3 - 96.4 fL [facility] MCH 38.3(H) 27.1 - 33.3 pg [facility] MCHC 34.5 32.3 - 35.7 g/dL [facility] RDW CV 15.7(H) 11.1 - 14.9 % [facility] RDW SD 63.2(H) 35.7 - 48.1 fL [facility] NRBC abs 0.00 0.00 - 0.01 K/cumm [facility] Blood Venous blood specimen / Unknown 01/05/2025 5:49 PM CDT 01/05/2025 6:03 PM CDT us Anthony Clay MD LAB BLOOD ORDERABLES Final Res ult [facility] One [facility] [place] [address] * Lipase (01/05/2025 5:49 PM CDT) Lipase 20 10 - 99 Units/L Blood 01/05/2025 5:49 PM CDT 01/05/2025 6:02 PM CDT us Leona Mcclure MD LAB BLOOD ORDERABLE S Final Result Performing Organization Address [facility]/ZIP Co de Phone Number [facility] One [facility] [place] [address] * (ABNORMAL) Comprehensive metabolic panel (01/05/2025 5:49 PM CDT) Pathologist [facility] Sodium 137 135 - 145 mmol/L Potassium, pl 4.1 3.3 - 4.9 mmol/L [facility] Chloride 101 97 - 110 mmol/L [facility] CO2 24 22 - 32 mmol/L [facility] Anion gap 12 2 - 15 mmol/L [facility] BUN 14 6 - 25 mg/dL [facility] Creatinine 1.83(H) 0.60 - 1.10 mg/dL [facility] Glucose 93 70 - 199 mg/dL [facility] Comment: Interpretive Data Fasting glucose >/= [...] 2022. Calcium 9.2 8.5 - 10.3 mg/dL [facility] Bilirubin, total 0.4 0.1 - 1.2 mg/dL [facility] Protein, pl 6.3(L) 6.5 - 8.5 g/dL [facility] Albumin 3.5 3.5 - 5.0 g/dL [facility] Alk phos 136(H) 40 - 130 Units/L [facility] ALT 11 7 - 45 Units/L [facility] AST 23 10 - 45 Units/L [facility] Blood 01/05/2025 5:49 PM CDT 01/05/2025 6:02 PM CDT us Anthony Clay MD LAB BLOOD ORDERABLES Final Res ult [facility] One [facility] [place] [address] * XR Chest Pa Lateral 2 Views [...] 12-LEAD (01/05/2025 1:08 PM CDT) Narrative [facility] - 01/05/2025 1:08 PM CDT Branden Almendarez [...] pain and [place] Branden Almendarez MD 01/05/25 [id number] us Anthony Clay MD ECG ORDERABLES Final Result [facility] * (ABNORMAL) eGFR (01/01/2025 1:57 PM CDT) [...] MD LAB BLOOD ORDERABLES Marbella jeong Result [facility] One [facility] [place] [address] * (ABNORMAL) Differential, auto (01/01/2025 1:57 PM CDT) Neutrophil abs 3.49 1.50 - 6.50 K/cumm Imm gran abs 0.02 0.00 - 0.10 K/cumm [facility] Lymphocyte abs 0.73(L) 0.80 - 3.30 K/cumm [facility] Monocyte abs 0.65 0.20 - 0.80 K/cumm [facility] Eosinophil abs 0.14 0.00 - 0.50 K/cumm [facility] Basophil abs 0.04 0.00 - 0.10 K/cumm [facility] Neutrophil pct 68.8 % [facility] Comment: Interpretive Data Percent cell count reference ranges are not reported, since discordance with absolute values may lead to misinterpretation of CBC data. Current Interpretive Data was last revised on 2017. Imm gran pct 0.4 % [facility] Comment: Interpretive Data Percent cell count reference ranges are not reported, since discordance with absolute values may lead to misinterpretation of CBC data. Current Interpretive Data was last revised on 2017. Lymphocyte pct 14.4 % [facility] Comment: Interpretive Data Percent cell count reference ranges are not reported, since discordance with absolute values may lead to misinterpretation of CBC data. Current Interpretive Data was last revised on 2017. Monocyte pct 12.8 % [facility] Comment: Interpretive Data Percent cell count reference ranges are not reported, since discordance with absolute values may lead to misinterpretation of CBC data. Current Interpretive Data was last revised on 2017. Eosinophil pct 2.8 % [facility] Comment: Interpretive Data Percent cell count reference ranges are not reported, since discordance with absolute values may lead to misinterpretation of CBC data. Current Interpretive Data was last revised on 2017. Basophil pct 0.8 % [facility] Comment: Interpretive Data Percent cell count reference ranges are not reported, since discordance with absolute values may lead to misinterpretation of CBC data. Current Interpretive Data was last revised on 2017. Blood 01/01/2025 1:57 PM CDT 01/01/2025 2:27 PM CDT Belem Menchaca MD LAB BLOOD ORDERABLES Marbella l Result Performing Organization Address [facility] Co de Phone Number [facility] Department [place] [employer] [place] [address] * (ABNORMAL) CBC with auto differential (01/01/2025 1:57 PM CDT) WBC 5.07 3.80 - 9.90 K/cumm Hgb 8.2(L) 11.9 - 15.5 g/dL [facility] Hct 24.3(L) 35.6 - 45.5 % [facility] Plt 228 150 - 400 K/cumm [facility] MPV 11.2 9.1 - 12.3 fL [facility] RBC 2.14(L) 3.90 - 5.20 M/cumm [facility] MCV 113.6(H) 81.3 - 96.4 fL [facility] MCH 38.3(H) 27.1 - 33.3 pg [facility] MCHC 33.7 32.3 - 35.7 g/dL [facility] RDW CV 15.9(H) 11.1 - 14.9 % [facility] RDW SD 66.4(H) 35.7 - 48.1 fL [facility] NRBC abs 0.02(H) 0.00 - 0.01 K/cumm [facility] Blood 01/01/2025 1:57 PM CDT 01/01/2025 2:27 PM CDT Belem Menchaca MD LAB BLOOD ORDERABLES Marbella l Result Performing Organization Address [facility]/ZIP Co de Phone Number [facility] [place] [employer] [place] [address] * (ABNORMAL) Comprehensive metabolic panel (01/01/2025 1:57 PM CDT) Sodium 139 135 - 145 mmol/L Potassium, pl 4.6 3.3 - 4.9 mmol/L [facility] Chloride 104 97 - 110 mmol/L [facility] CO2 26 22 - 32 mmol/L [facility] Anion gap 9 2 - 15 mmol/L [facility] BUN 11 6 - 25 mg/dL [facility] Creatinine 1.84(H) 0.60 - 1.10 mg/dL [facility] Glucose 105 70 - 199 mg/dL [facility] Comment: Interpretive Data Fasting glucose >/= [...] 2022. Calcium 9.5 8.5 - 10.3 mg/dL [facility] Bilirubin, total 0.3 0.1 - 1.2 mg/dL [facility] Protein, pl 6.3(L) 6.5 - 8.5 g/dL [facility] Albumin 3.6 3.5 - 5.0 g/dL [facility] Alk phos 146(H) 40 - 130 Units/L [facility] ALT 10 7 - 45 Units/L [facility] AST 25 10 - 45 Units/L [facility] Blood 01/01/2025 1:57 PM CDT 01/01/2025 2:27 PM CDT us Belem Menchaca MD LAB BLOOD ORDERABLES Marbella l Result [facility] One [facility] [place] [address] * (ABNORMAL) eGFR (12/05/2024 11:21 AM CDT) Pathologist [facility] eGFR 32(L) >=60 mL/min/1. 73 m2 Comment: [...] MD LAB BLOOD ORDERABLES Marbella jeong Result [facility] One [facility] [place] [address] * (ABNORMAL) Differential, auto (12/05/2024 11:21 AM CDT) Pathologist [facility] Neutrophil abs 6.5 1.5 - 6.5 K/cumm Imm gran abs 0.0 0.0 - 0.1 K/cumm [facility] Lymphocyte abs 0.5(L) 0.8 - 3.3 K/cumm [facility] Monocyte abs 0.5 0.2 - 0.8 K/cumm [facility] Eosinophil abs 0.1 0.0 - 0.5 K/cumm [facility] Basophil abs 0.0 0.0 - 0.1 K/cumm [facility] Neutrophil pct 84.4 % [facility] Comment: Interpretive Data Percent cell count reference ranges are not reported, since discordance with absolute values may lead to misinterpretation of CBC data. Current Interpretive Data was last revised on 2017. Imm gran pct 0.5 % [facility] Comment: Interpretive Data Percent cell count reference ranges are not reported, since discordance with absolute values may lead to misinterpretation of CBC data. Current Interpretive Data was last revised on 2017. Lymphocyte pct 6.7 % [facility] Comment: Interpretive Data Percent cell count reference ranges are not reported, since discordance with absolute values may lead to misinterpretation of CBC data. Current Interpretive Data was last revised on 2017. Monocyte pct 6.7 % [facility] Comment: Interpretive Data Percent cell count reference ranges are not reported, since discordance with absolute values may lead to misinterpretation of CBC data. Current Interpretive Data was last revised on 2017. Eosinophil pct 1.2 % [facility] Comment: Interpretive Data Percent cell count reference ranges are not reported, since discordance with absolute values may lead to misinterpretation of CBC data. Current Interpretive Data was last revised on 2017. Basophil pct 0.5 % [facility] Comment: Interpretive Data Percent cell count reference ranges are not reported, since discordance with absolute values may lead to misinterpretation of CBC data. Current Interpretive Data was last revised on 2017. Blood 12/05/2024 11:2 1 AM CDT 12/05/2024 11:57 AM CDT us Belem Menchaca MD LAB BLOOD ORDERABLES Marbella l Result [facility] Department of Laboratories [place], [place] [id number] * (ABNORMAL) CBC with auto differential (12/05/2024 11:21 AM CDT) WBC 7.6 3.8 - 9.9 K/cumm Hgb 8.8(L) 11.9 - 15.5 g/dL [facility] Hct 25.3(L) 35.6 - 45.5 % [facility] Plt 278 150 - 400 K/cumm [facility] MPV 10.9 9.1 - 12.3 fL [facility] RBC 2.29(L) 3.90 - 5.20 M/cumm [facility] MCV 110.5(H) 81.3 - 96.4 fL [facility] MCH 38.4(H) 27.1 - 33.3 pg [facility] MCHC 34.8 32.3 - 35.7 g/dL [facility] RDW CV 14.6 11.1 - 14.9 % [facility] RDW SD 59.4(H) 35.7 - 48.1 fL [facility] NRBC abs 0.03(H) 0.00 - 0.01 K/cumm [facility] Blood 12/05/2024 11:2 1 AM CDT 12/05/2024 11:57 AM CDT Belem Menchaca MD LAB BLOOD ORDERABLES Marbella l Result [facility] [place] [address] * (ABNORMAL) Comprehensive metabolic panel (12/05/2024 11:21 AM CDT) Sodium 140 135 - 145 mmol/L Potassium, pl 4.4 3.3 - 4.9 mmol/L [facility] Chloride 103 97 - 110 mmol/L [facility] CO2 25 22 - 32 mmol/L [facility] Anion gap 12 2 - 15 mmol/L [facility] BUN 11 6 - 25 mg/dL [facility] Creatinine 1.70(H) 0.60 - 1.10 mg/dL [facility] Glucose 102 70 - 199 mg/dL [facility] Comment: Interpretive Data Fasting glucose >/= [...] MD LAB BLOOD ORDERABLES Marbella l Result [facility] [place] [address] * Screening Mammogram Left W [place] Unilateral Only (04/28/2024 2:23 PM CDT) Anatomical Region Laterality Modality Breast Left Mammography Narrative 05/01/2024 3:22 PM CDT Mammogram Technique: Left Breast Digital Breast Tomosynthesis, Unilateral C-view 2D Screening mammogram. Views obtained: left craniocaudal and left mediolateral oblique. Computer Aided Detection was performed. Mammogram Findings: The present examination has been compared to prior imaging studies performed at [facility] on 12/28/2018, and at [facility] on 03/17/2022 and 03/24/2023. There are scattered [...] compared to prior imaging studies performed at [facility]. [facility] on 12/28/2018, [facility] on 03/17/2022 and 03/24/2023. There are scattered areas of fibroglandular density. There is no suspicious abnormality in the left breast. Patient status post contralateral mastectomy for personal history ofbreast cancer. Impression: There is no mammographic evidence of malignancy. Annual screening mammography is recommended. OVERALL FINAL ASSESSMENT: BI-RADS CATEGORY 1: Negative. Result [facility] Lilo Boucher NP IMG MAMMO PROCEDURES Final Result from Last 3 Months or Most Recently Relevant to Health Maintenance Insurance [facility] MEDICARE [facility] [place] [id number] [facility] MEDICARE [facility] H[facility]/PPO Address: [address] [address] [place] [address] [facility] SECONDARY MEDICARE [facility] H[facility]/PPO Address: [address] [address] [place] [address] [facility] SECONDARY Advance Directives For more information, please contact: [phone] * Full Code (Latest Code Status on [...] 8:01 PM 05/29/2020 8:17 PM Care Teams Non Licensed Operator Relationship Specialty [place] [id number] [id number] PCP - General Nurse Practitioner 01/05/25 Suhail Marie MD [address] [place], [place] [id number] Internal Medicine 07/28/23 Robin Pimentel MD [address] [place], [place] [id number] Internal Medicine 07/28/23
[2025-02-11] MEDS: ONDANSETRON INJ 4 MG/2 ML VIAL IV PUSH (19:08)
[2025-02-11 19:09] VITALS: BP 107/49; PULSE 96; RESP 18; O2SAT 98
--- NOTE | 2025-02-11 19:17 | PC.NURSE ---
Report received from DEMARCO Cagle. Assumed care of patient at this time.
[2025-02-11] MEDS: LACTATED RINGERS 1,000 ML 999 ML IV CONT (19:29)
[2025-02-11] MEDS: diphenhydrAMINE HCl INJ 50 MG/ML VIAL 25 MG IV PUSH (19:49)
[2025-02-11] MEDS: METOCLOPRAMIDE HCL INJ 10 MG/2 ML VIAL IV PUSH (19:49)
--- NOTE | 2025-02-11 20:21 | ED.ABDPAIN ---
HPI - Abdominal Pain General Chief Complaint: Abdominal Pain Stated Complaint: Abdominal pain, N/V x 2 days Time Seen by Provider: 02/11/25 18:21 History of Present Illness HPI narrative: For last 2 days patient with n/v, abd pain, some diarrhea; h/o multiple abd surgeries in past including for abd cancer, ovarian cancer. Currently about to start chemotherapy in 1 week. She is denying any abdominal pain. Related Data Home Medications ?Medication ?Instructions ?Recorded ?Confirmed ?Last Taken ?Type famotidine 20 mg tablet 20 mg PO BID 09/11/23 10/18/24 Unknown History mirtazapine 30 mg tablet 15 mg PO HS 09/11/23 10/18/24 Unknown History potassium chloride 20 mEq 20 meq PO BID 09/11/23 10/18/24 Unknown History tablet,extended release(part/cryst) (Klor-Con M) duloxetine 20 mg capsule,delayed 20 mg PO HS 07/16/24 10/18/24 Unknown History release duloxetine 60 mg capsule,delayed 60 mg PO DAILY 07/16/24 10/18/24 Unknown History release fluticasone propionate 50 1 spray intranasal DAILY 07/16/24 10/18/24 Unknown History mcg/actuation nasal spray,suspension gabapentin 600 mg tablet 600 mg PO BID 07/16/24 10/18/24 Unknown History meloxicam 7.5 mg tablet 7.5 mg PO DAILY 07/16/24 10/18/24 Unknown History methocarbamol 500 mg tablet 500 mg PO DAILY 07/16/24 10/18/24 Unknown History olaparib 100 mg tablet (Lynparza) 200 mg PO BID 07/16/24 10/18/24 Unknown History omeprazole 40 mg capsule,delayed 40 mg PO BID 07/16/24 10/18/24 Unknown History release ondansetron HCl 8 mg tablet 8 mg PO Q8H PRN nausea/vomiting 07/16/24 10/18/24 Unknown History Allergies Allergy/AdvReac Type Severity Reaction Status Date / Time coconut Allergy Severe Anaphylaxis Verified 02/11/25 16:14 adhesive tape Allergy Unknown Other Verified 02/11/25 16:14 celecoxib (From Celebrex) AdvReac Rash Verified 02/11/25 16:14 Review of Systems Review of Systems: All systems reviewed & are unremarkable except as noted in HPI and below PMFSH Past Medical History Medical History Breast cancer Depression Anxiety Irritable bowel syndrome Chronic anemia Peripheral neuropathy due to chemotherapy GERD (gastroesophageal reflux disease) Osteoporosis Ovarian cancer Approximately 2020 with recurrence in 2021 Surgical History Surgical History History of right mastectomy History of total abdominal hysterectomy and bilateral salpingo-oophorectomy History of left knee replacement (2022) Hx of cholecystectomy Family History Family History Mother Family history of malignant neoplasm of breast in first degree relative Father Family history of lung disease Daughter Breast cancer Social History Social History Social History: She lives with her of 32 years. 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 She has 2 daughters and a son. Her youngest daughter was just diagnosed with breast cancer. She used to smoke up to a pack of cigarettes per day but then would not smoke for up to a week after that. She did this for proximally 30 years but quit smoking in the . She denies any history of heavy alcohol use or illicit substance use. She ambulates with a Rollator. Code status: Full code Surrogate decision maker: Years smoked: 20 Smoking status: Former smoker Alcohol intake: former Substance use: never Substance use type: does not use Do You Feel Safe in your Home?: Yes Lack of Transportation: No Lack of Food: Never True Current Housing: I Have Housing Concerned About Future Housing: No Difficulty Paying Gas/Electric Bills: No Difficulty Paying for Meds: No Currently Unemployed: No Education: High School Diploma/GED Difficulty w/ Childcare or Family Care: No Spiritual care concerns: No Exam Narrative: EXAMINATION OF ORGAN SYSTEMS/BODY AREAS: Constitutional: Vital signs per nursing GENERAL:[No acute distress, non-toxic appearing.] HEAD: Normal with no signs of head trauma. EYES: EOMI, conjunctiva normal ENT: Hearing grossly intact LUNGS: Nonlabored breathing. HEART: [Regular rate and rhythm] ABD: [Soft], slightly tender to palpation right abdomen EXT: Normal range of motion SKIN: [No rashes or lesions.] NEURO: [Alert and oriented x 3.] PSYCH: Normal affect Course Vital Signs Vital signs: Vital Signs Temperature 98.2 F 02/11/25 16:17 Pulse Rate 112 H 02/11/25 16:17 Respiratory Rate 16 02/11/25 16:17 Blood Pressure 110/72 02/11/25 16:17 Pulse Oximetry 97 02/11/25 16:17 Oxygen Delivery Room Air 02/11/25 16:17 Temperature 98.2 F 02/11/25 16:17 Pulse Rate 85 02/11/25 20:34 Respiratory Rate 18 02/11/25 20:34 Blood Pressure 113/83 02/11/25 20:34 Pulse Oximetry 100 02/11/25 20:34 Oxygen Delivery Room Air 02/11/25 16:17 MDM - Abdominal Pain MDM Narrative Medical decision making narrative: Electronic medical record was reviewed. Patient presented to the ED with complaint of [abdominal pain and vomiting]; abdominal pain now mostly resolved but she is still quite nauseous. Vitals slightly tachycardic. Physical exam revealed soft abdomen with some very minimal tenderness to the right side. Based on the patient's history and physical exam, my differential includes but is not limited to [gastritis, gastroenteritis, cholecystitis, pancreatitis, appendicitis]. [IV access was established by nursing staff. Patient was given zofran, IV fluids]. CBC, BMP, lipase, LFTs, bilirubin and alk phos were obtained. Labs were pertinent for elevated white count. She is anemic at baseline. Low potassium which is repleted. [Decision was made to obtain a CT-abdomen to evaluate for acute abdominal process. CT-abdomen per radiology interpretation showing possible ileus.] On re-evaluation patient still nauseous, so additional nausea medication given. She is still feeling nauseous so at this point I did feel she may need to be admitted for nausea control and for ileus. Will be discussed with hospitalist for admission. Hospitalist requests urology consultation and possible transfer to [facility]; I did discuss this with family who are agreeable. Urologist Dr Viveros agreeable to consulting on patient here. Hospitalist agreeable to admitting here. Lab Data 02/11/25 18:03 02/11/25 18:03 Labs: Lab Results 02/11/25 Range/Units 18:03 WBC 14.4 H (4.5-10.0) K/mm3 RBC 2.28 L (4.2-5.4) M/mm3 Hgb 8.3 L (12.0-15.0) g/dL Hct 24.3 L (37.0-47.0) % MCV 106.6 H (80-100) fl MCH 36.4 H (26-34) pg MCHC 34.2 (32-36) g/dl RDW 21.4 H (11.5-14.5) % Plt Count 220 (150-375) k/mm3 MPV 10.8 H (7.4-10.4) fl Immature Gran % (Auto) 0.8 H (0-0.5) % Neut % (Auto) 89.1 H (45.5-73.1) % Lymph % (Auto) 2.6 L (18.3-44.2) % [place] % (Auto) 7.4 (2.6-8.5) % Eos % (Auto) 0.0 (0-4.4) % Baso % (Auto) 0.1 L (0.2-1.2) % Lymph # (Auto) 0.38 L (0.9-3.2) K/mm3 [place] # (Auto) 1.1 H (0.1-0.6) K/mm3 Eos # (Auto) 0.0 (0-0.3) K/mm3 Baso # (Auto) 0.0 (0.0-0.1) K/mm3 Abs Immat Gran (auto) 0.12 H (0.00-0.031) K/mm3 Absolute Neuts (auto) 12.8 H (1.3-6.7) K/mm3 Absolute Nucleated RBC 0.000 (0.0-0.012) K/mm3 Band Neutrophils % Not Reportable Nucleated RBC % 0.0 (0.0-0.2) % Platelet Estimate Adequate (Adequate) Hypochromasia 2+ Poikilocytosis 1+ Anisocytosis 2+ Schistocytes None seen Sodium 133 L (137-145) mmol/L Potassium 3.0 L (3.4-5.0) mmol/L Chloride 101 (98-107) mmol/L Carbon Dioxide 24 (22-30) mmol/L Anion Gap 8 (4-12) mmol/L BUN 24 H (7-17) mg/dL Creatinine 1.50 H (0.7-1.0) mg/dL Estim Creat Clear Calc 31 ml/min Estimated GFR 34 L (59 - ) Glucose 138 H (65-110) mg/dL Calcium 8.7 (8.4-10.2) mg/dL Total Bilirubin 0.8 (0.2-1.3) mg/dL AST 31 (14-36) U/L ALT 17 (6-35) U/L Alkaline Phosphatase 129 H (38-126) U/L Total Protein 6.0 L (6.3-8.2) g/dL Albumin 3.3 L (3.5-5.1) g/dL Lipase 27 (23-300) U/L Imaging Data Radiologist's impression: ITS Impressions Abdomen/Pelvis CT 02/11/25 19:12 IMPRESSION: Moderate right pelviectasis and caliectasis, despite the presence of a ureteral stent, may represent chronic dilation or stent dysfunction with acute hydronephrosis. Potential enteroureteral, enterovesicular, and/or enterovesicular fistulae. Presumed necrotic mesenteric lymph node in the right lower quadrant. Generalized mild dilation of the small bowel, presumably due to ileus. Early/partial obstruction not excluded. Discharge Plan Discharge Clinical Impression: Nausea, Ileus Patient Disposition: Still a Patient Condition: Stable Patient Language: Tamazight Prescriptions: No Action potassium chloride [Klor-Con M20] 20 mEq tablet,ER particles/crystals 20 meq PO BID famotidine 20 mg tablet 20 mg PO BID mirtazapine 30 mg tablet 15 mg PO HS gabapentin 600 mg tablet 600 mg PO BID ondansetron HCl 8 mg tablet 8 mg PO Q8H PRN (Reason: nausea/vomiting) omeprazole 40 mg capsule,delayed release(DR/EC) 40 mg PO BID meloxicam 7.5 mg tablet 7.5 mg PO DAILY Lynparza 100 mg Tablet 200 mg PO BID methocarbamol 500 mg tablet 500 mg PO DAILY fluticasone propionate 50 mcg/actuation spray,suspension 1 spray INTRANASAL DAILY duloxetine 20 mg capsule,delayed release(DR/EC) 20 mg PO HS duloxetine 60 mg capsule,delayed release(DR/EC) 60 mg PO DAILY acetaminophen 325 mg Tablet 650 mg PO Q6H PRN (Reason: Mild Pain (1-3) Or Fever) Qty: 30 0RF sennosides-docusate sodium [Senokot-S] 8.6-50 mg Tablet 1 tab-cap PO BID Qty: 60 0RF magnesium oxide 400 mg (241.3 mg magnesium) Tablet 400 mg PO DAILY Qty: 30 0RF polyethylene glycol 3350 [Miralax] 17 gram Powder In Packet 17 g PO QAM Qty: 30 0RF midodrine 5 mg Tablet 7.5 mg PO TIDAC Qty: 90 0RF metoprolol tartrate 25 mg Tablet 12.5 mg PO Q12HR Qty: 60 0RF Follow-up/Referrals: Radha,Ceci Goddard, FIELD CANE SCALE CLERK [Primary Care Provider] -
--- NOTE | 2025-02-11 20:33 | PC.NURSE ---
Patient ambulated to the bathroom with to attempt to provide urine sample, unsuccessful. ERP notified.
[2025-02-11 20:34] VITALS: BP 113/83; PULSE 85; RESP 18; O2SAT 100
[2025-02-11] MEDS: POTASSIUM CHLORIDE INJ 40 MEQ in SODIUM CHLORIDE 0.9% IV 500 ML 130 MEQ IVPB (21:06)
[2025-02-11] MEDS: droPERidol 5 MG/2 ML VIAL 2.5 MG IV PUSH (21:06)
[2025-02-11] MEDS: FAMOTIDINE 20 MG/2 ML VIAL IV PUSH (21:06)
--- NOTE | 2025-02-11 21:13 | PC.NURSE ---
Patient ambulated to the bathroom to attempt to provide a urine sample. Patient states she was unable to go. Patient requesting now to have a straight cath.
[2025-02-11 22:05] VITALS: BP 115/85; PULSE 104; RESP 18; TEMP 37.2; O2SAT 99
[2025-02-11 22:05] LABS: Add Urine Microscopic? YES; Appearance Urine Turbid (Clear); Bacteria Urine 4+ /hpf; Bilirubin Urine Negative (Negative); Blood Urine 2+ (Negative); Color Urine Yellow (Yellow); Glucose Urine UA Negative (Negative); Ketones Urine Trace mg/dL (Negative); Leukocyte Esterase Ur 3+ LEU/UL (Negative); Need Manual Microscopic Reviewed; Nitrate Urine Negative (Negative); Protein Urine 2+ mg/dL (Negative); RBC Urine 0-2 /hpf (0-2); Specific Grav Ur 1.041 (1.001-1.035); Squamous Epithelial Cell Urine None Seen /hpf (Few); Urobilinogen Urine 0.2 mg/dL (<2.0); WBC Urine >100 /hpf (0-3); pH Urine 5.5 (5.0-9.0)
[2025-02-11 23:26] VITALS: BMI 23.5
--- NOTE | 2025-02-11 23:26 | ADMGEN ---
This patient, Karis Kraus, was admitted to [facility] Surg Room 300-01. Patient/family oriented to hospital policies and general routines including ID bracelet, bed and alarms, visiting hours, pain management, procedures, bathroom and other care routines, personal items, smoking policy, room service/diet, and visiting hours. Information on how to activate the Rapid Response Team has been discussed. Patient/Family are encouraged to report perceived risks to care and to ask questions if they do not understand what they are told or what they should do.
--- NOTE | 2025-02-12 00:03 | PM.IMHP ---
H&P: HPI History of Present Illness Date/Time: 02/12/25 01:15 Chief Complaint: Nausea, vomiting, abdominal pain. Narrative: This is a pleasant 70-year-old female with history of ovarian cancer being treated at [facility], breast cancer, neuropathy related to chemotherapy, gastroesophageal reflux disease, irritable bowel syndrome, arthritis, anemia, depression, and anxiety who presented to the emergency department via private vehicle with complaints of nausea, vomiting, and abdominal pain. Fairly recently she had a stent placed due to what sounds like compression of her ureter from tumors in her abdomen related to her malignancy and that was performed at [facility]. The last couple of days she started to have pain in the right flank radiating into the right mid to lower quadrant which she has difficulties describing. She has been pretty consistently nauseated and she has been vomiting and now has dry heaves. Additionally she reports having several loose stools a day for the last couple of days. She denies fever, sweats, epigastric pain, bloating, belching, hematemesis, melena, hematochezia, dysuria, and hematuria. No sick contacts or recent travel. In the ED: Vital signs on arrival include a temperature of 98.2?, blood pressure 110/72, pulse 112. Labs were significant for a WBC count of 14.4, hemoglobin 8.3, MCV 106.6, sodium 133, potassium 3.0, BUN 24, creatinine 1.50. Urinalysis was positive for trace ketones, 3+ leukocyte esterase, greater than 100 WBC, and 4+ bacteria. Abdomen/pelvis CT showed moderate right pelviectasis and caliectasis despite the presence of the stent, potential fistulae, and probable fistula. She was given potassium chloride 40 mEq IV and 1 liter of lactated Ringer's and she is being admitted in this setting for further treatment and urology consultation. Review of Systems Review of Systems: 12 systems were reviewed and are negative except for as per HPI. FORMERLY [facility], [facility] Past Medical History Medical History (Updated 02/12/25 @ 04:30 by Rizwana Hillman PA-C) Chronic kidney disease, stage 3 Gastroesophageal reflux disease Breast cancer Depression Anxiety Irritable bowel syndrome Chronic anemia Peripheral neuropathy due to chemotherapy Osteoporosis Ovarian cancer Approximately 2020 with recurrence in 2021 Surgical History Surgical History (Updated 02/12/25 @ 04:27 by Rizwana Hillman PA-C) History of cholecystectomy History of right mastectomy History of total abdominal hysterectomy and bilateral salpingo-oophorectomy History of left knee replacement (2022) Family History Family History Mother Family history of malignant neoplasm of breast in first degree relative Father Family history of lung disease Daughter Breast cancer Social History Social History Social History: She lives with her of 32 years. 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 She has 2 daughters and a son. Her youngest daughter was just diagnosed with breast cancer. She used to smoke up to a pack of cigarettes per day but then would not smoke for up to a week after that. She did this for proximally 30 years but quit smoking in the . She denies any history of heavy alcohol use or illicit substance use. She ambulates with a Rollator. Code status: Full code Surrogate decision maker: Years smoked: 20 Smoking status: Never smoker Alcohol intake: never Substance use: never Substance use type: does not use Do You Feel Safe in your Home?: Yes Lack of Transportation: No Lack of Food: Never True Current Housing: I Have Housing Concerned About Future Housing: No Difficulty Paying Gas/Electric Bills: No Difficulty Paying for Meds: No Currently Unemployed: No Education: High School Diploma/GED Difficulty w/ Childcare or Family Care: No Spiritual care concerns: No Meds Home Medications and Allergies Home Medications ?Medication ?Instructions ?Recorded ?Confirmed ?Type potassium chloride 20 mEq 20 meq PO BID 09/11/23 02/11/25 History tablet,extended release(part/cryst) (Klor-Con M) gabapentin 600 mg tablet 600 mg PO TID 07/16/24 02/11/25 History meloxicam 7.5 mg tablet 7.5 mg PO DAILY 07/16/24 02/11/25 History ondansetron HCl 8 mg tablet 8 mg PO Q12H PRN nausea/vomiting 07/16/24 02/11/25 History acetaminophen 325 mg tablet 650 mg (2 x 325 mg) PO Q6H PRN 07/30/24 02/11/25 Rx Mild Pain (1-3) Or Fever #30 tabs cholecalciferol (vitamin D3) 50 50 mcg PO BID 02/11/25 02/11/25 History mcg (2,000 unit) tablet (D3 DOTS) esomeprazole magnesium 40 mg 40 mg PO Q24H 02/11/25 02/11/25 History capsule,delayed release fluoxetine 40 mg capsule 40 mg PO DAILY 02/11/25 02/11/25 History loratadine 10 mg tablet 10 mg PO Q24H 02/11/25 02/11/25 History olaparib 100 mg tablet (Lynparza) 200 mg PO BID 02/11/25 02/11/25 History pyridoxine (vitamin B6) 100 mg 200 mg PO BID 02/11/25 02/11/25 History tablet Allergies Allergy/AdvReac Type Severity Reaction Status Date / Time coconut Allergy Severe Anaphylaxis Verified 02/11/25 16:14 adhesive tape Allergy Unknown Other Verified 02/11/25 16:14 celecoxib (From Celebrex) AdvReac Rash Verified 02/11/25 16:14 Vital Signs Vital Signs - 24 hr 02/11/25 16:17 02/11/25 19:09 02/11/25 20:34 Temperature 98.2 F Pulse Rate 112 H 96 85 Respiratory Rate 16 18 18 Blood Pressure 110/72 107/49 L 113/83 Pulse Oximetry 97 98 100 Oxygen Delivery Room Air 02/11/25 22:05 Temperature 98.9 F Pulse Rate 104 H Respiratory Rate 18 Blood Pressure 115/85 Pulse Oximetry 99 Oxygen Delivery Exam Narrative: General: Mildly ill-appearing female supine in bed in no distress. Weight: 66 kg. BMI: 23.5. HEENT: PERRL, EOMI. Sclera anicteric. Tacky mucous membranes. Neck: Supple. Respiratory: Lungs are clear to auscultation bilaterally. Cardiovascular: Regular rate and rhythm with S1-S2. Gastrointestinal: Abdomen is soft and slightly distended with positive bowel sounds. Mild tenderness to palpation over the right flank. No CVA tenderness. Skin: Warm and dry. Extremities: No cyanosis, clubbing, or edema. Radial and pedal pulses intact. Neurological: Alert. Cranial nerves 2-12 are grossly intact. No gross focal deficits to casual conversation. Psychiatric: Pleasant and cooperative with normal mood and affect. Judgment and insight intact. H&P: Results Labs Labs: Short CBC 02/11/25 Range/Units 18:03 WBC 14.4 H (4.5-10.0) K/mm3 Hgb 8.3 L (12.0-15.0) g/dL Hct 24.3 L (37.0-47.0) % Plt Count 220 (150-375) k/mm3 BMP 02/11/25 18:03 Sodium 133 L Potassium 3.0 L Chloride 101 Carbon Dioxide 24 BUN 24 H Creatinine 1.50 H Glucose 138 H Calcium 8.7 Liver Function 02/11/25 Range/Units 18:03 Total Bilirubin 0.8 (0.2-1.3) mg/dL AST 31 (14-36) U/L ALT 17 (6-35) U/L Alkaline Phosphatase 129 H (38-126) U/L Albumin 3.3 L (3.5-5.1) g/dL Urine 02/11/25 Range/Units 21:46 Urine Color Yellow (Yellow) Urine Appearance Turbid H (Clear) Urine pH 5.5 (5.0-9.0) Ur Specific [place] 1.041 H (1.001-1.035) Urine Protein 2+ H (Negative) mg/dL Urine Glucose (UA) Negative (Negative) mg/dL Imaging Abdomen/Pelvis CT 02/11/25 19:12 IMPRESSION: Moderate right pelviectasis and caliectasis, despite the presence of a ureteral stent, may represent chronic dilation or stent dysfunction with acute hydronephrosis. Potential enteroureteral, enterovesicular, and/or enterovesicular fistulae. Presumed necrotic mesenteric lymph node in the right lower quadrant. Generalized mild dilation of the small bowel, presumably due to ileus. Early/partial obstruction not excluded. Assessment and Plan Assessment and plan (1) Urinary tract infection: Code(s): N39.0 - Urinary tract infection, site not specified Status: Acute (2) Acute on chronic kidney failure: Code(s): N17.9 - Acute kidney failure, unspecified; N18.9 - Chronic kidney disease, unspecified Status: Acute (3) Dehydration: Code(s): E86.0 - Dehydration Status: Acute (4) Hypokalemia: Code(s): E87.6 - Hypokalemia Status: Acute (5) Hydronephrosis: Code(s): N13.30 - Unspecified hydronephrosis Status: Acute (6) Ileus: Code(s): K56.7 - Ileus, unspecified Status: Acute (7) Chronic anemia: Code(s): D64.9 - Anemia, unspecified Status: Acute (8) Ovarian cancer: Code(s): C56.9 - Malignant neoplasm of unspecified ovary Status: Acute Plan The patient presented to the emergency department with complaints of right-sided abdominal pain, nausea, vomiting, and some diarrhea as detailed in HPI. Labs, imaging, EKG, and all reports were personally reviewed. She has urinary tract infection and has been started on ceftriaxone, pending urine culture. CT scan showed moderate pelviectasis and caliectasis of the right kidney despite the presence of the ureteral stent of unclear significance. She is having intermittent right-sided abdominal pain thus will consult Urology for their opinion. CT also shows findings of possible ileus and abdominal exam will be monitored. She still feels a bit nauseated but has not vomited since admission to the floor. Acute on chronic kidney injury is likely due to dehydration though cannot rule out a component of obstruction as above. Avoid nephrotoxic agents and monitor strict I/O. Potassium will be replaced and monitored. Chronic anemia stable on review of previous labs. Her home medications will be reviewed and resumed as appropriate. Quality VTE Prophylaxis VTE prophylaxis: mechanical ordered If No VTE Prophylaxis Answer both mechanical and pharmacologic: Reason no pharmacologic proph: medical contraindication (hold in case she requires procedure) The patient has been admitted under observation status. Hospitalist [facility] Advance Care Plan I have confirmed that the patient's Advanced Care Plan is present, code status is documented, or surrogate decision maker is listed in patient medical record.: Yes Medication Reconciliation I have utilized all available resources to obtain, update and review the patients current medications (includes all prescriptions, OTC, herbals, cannabis, and nutritional supplements).: Yes
[2025-02-12] MEDS: MORPHINE SULFATE (*CRX) 2 MG/ML INJ IV PUSH (03:43)
[2025-02-12] MEDS: ONDANSETRON INJ 4 MG/2 ML VIAL IV PUSH ×3 (03:44→22:32)
[2025-02-12] MEDS: SODIUM CHLORIDE 0.9% IV 1,000 ML 75 ML IV CONT (05:49)
[2025-02-12] MEDS: CENTRAL LINE FLUSH 10 ML IV PUSH ×3 (05:50→20:55)
[2025-02-12 06:00] VITALS: BP 111/55; PULSE 94; RESP 16; TEMP 37.1; O2SAT 95
[2025-02-12 06:18] LABS: Mean Corpuscular HGB Conc 32.6 g/dl (32-36); Mean Corpuscular Hemoglobin 35.4 pg (26-34); Mean Corpuscular Volume 108.6 fl (80-100); Platelet Count Result 160 k/mm3 (150-375); Red Blood Count 1.75 M/mm3 (4.2-5.4); Red Cell Distribution Width 21.3 % (11.5-14.5); White Blood Count 9.1 K/mm3 (4.5-10.0)
[2025-02-12 06:26] LABS: Hemoglobin 6.2 g/dL (12.0-15.0)
--- NOTE | 2025-02-12 06:58 | PC.NURSE ---
Received critical lab results for ELEAZAR and DEMARCO Martin stated that she believed it was a contaminated/diluted sample and needed to redraw blood.
[2025-02-12 07:31] LABS: Anion Gap 4 mmol/L (4-12); Blood Urea Nitrogen 21 mg/dL (7-17); Calcium 8.1 mg/dL (8.4-10.2); Carbon Dioxide 25 mmol/L (22-30); Chloride 106 mmol/L (98-107); Estimated CRCL calculation 35 ml/min; Estimated Glomerular Filt Rate 42; Glucose 96 mg/dL (65-110); Magnesium 1.5 mg/dL (1.6-2.3); Potassium 3.3 mmol/L (3.4-5.0); Sodium 135 mmol/L (137-145)
[2025-02-12 08:04] LABS: Mean Corpuscular HGB Conc 32.8 g/dl (32-36); Mean Corpuscular Hemoglobin 35.6 pg (26-34); Mean Corpuscular Volume 108.6 fl (80-100); Mean Platelet Volume 11.4 fl (7.4-10.4); Platelet Count Result 157 k/mm3 (150-375); Red Blood Count 1.74 M/mm3 (4.2-5.4); Red Cell Distribution Width 21.7 % (11.5-14.5); White Blood Count 8.8 K/mm3 (4.5-10.0)
--- NOTE | 2025-02-12 08:07 | WPDURCON ---
Assessment and Plan Assessment and plan (1) Hydronephrosis: Code(s): N13.30 - Unspecified hydronephrosis Status: Acute Assessment and Plan: See below (2) Abnormal urinalysis: Code(s): R82.90 - Unspecified abnormal findings in urine Status: Acute Assessment and Plan: No symptoms of infection Plan I reviewed the CT scan. She has pelviectasis of the renal pelvis but no hydronephrosis. No flank pain. Creatinine is at baseline. No delayed nephrogram that would lead me to think obstruction. Nausea vomiting has largely resolved. No to minimal stent discomfort other than some occasional right lower quadrant pain. Do not plan on urologic intervention at this point. If she did have stent obstruction it is unlikely that she would benefit from a stent change as the current stent was only placed just over 4 weeks ago. If she had stent obstruction due to external compression she would be best served by a percutaneous nephrostomy tube. Again, at this point I would recommend observation. If develops flank pain or signs of obstruction or worsening renal function would recommend pursuing nephrostomy tube. Please provide this patient a report of her CT scan as well as a copy of the scan on a disc so she can share with her primary urologist at [facility] as well as her oncologist. We will not follow actively. Please call with questions. Patient follow-up with primary urologist upon discharge Urology Consult Note HPI Date Seen: 02/12/25 Requesting Physician: Michael Rosario MD Primary Care Provider: Ceci Garcia, DYE RANGE OPERATOR CLOTH Consult Narrative Narrative: Karis Kraus is a 70 year old female who is undergoing treatment for metastatic cancer. She is currently admitted for nausea vomiting. Her past urologic history is significant for right-sided hydronephrosis. In late December she underwent cystoscopy and right ureteral stent placement at [facility] for right hydronephrosis by Dr. Ac. I reviewed the op note and there was difficulty placing the stent due to malignant external compression. The stent was ultimately we placed. She had a CT scan upon admission for her nausea vomiting which showed pelviectasis on the right but no hydroureter. There is no delayed nephrogram to suggest obstruction. She is at or near her baseline creatinine based on labs from the [facility] system. There was also concern for a ureteral enteric fistula on the CT scan.. She does have an abnormal urinalysis which could be suggestive of infection. Previous urine cultures have grown out E coli. She is not symptomatic of infection. She notes cloudy urine, but no dysuria, hematuria, fecal urea, or pneumoturia. She denies any flank pain at current. Her nausea and vomiting has improved. She is set to see her oncologist in the next few weeks as well as her primary urologist at [facility] Review of Systems Review of Systems: All systems reviewed & are unremarkable except as noted in HPI and below PMFSH Past Medical History Medical History (Updated 02/12/25 @ 08:13 by Hung Riddle MD) Hydronephrosis Chronic kidney disease, stage 3 Gastroesophageal reflux disease Breast cancer Depression Anxiety Irritable bowel syndrome Chronic anemia Peripheral neuropathy due to chemotherapy Osteoporosis Ovarian cancer Approximately 2020 with recurrence in 2021 Surgical History Surgical History History of cholecystectomy History of right mastectomy History of total abdominal hysterectomy and bilateral salpingo-oophorectomy History of left knee replacement (2022) Family History Family History Mother Family history of malignant neoplasm of breast in first degree relative Father Family history of lung disease Daughter Breast cancer Social History Social History Social History: She lives with her of 32 years. 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 She has 2 daughters and a son. Her youngest daughter was just diagnosed with breast cancer. She used to smoke up to a pack of cigarettes per day but then would not smoke for up to a week after that. She did this for proximally 30 years but quit smoking in the . She denies any history of heavy alcohol use or illicit substance use. She ambulates with a Rollator. Code status: Full code Surrogate decision maker: Years smoked: 20 Smoking status: Never smoker Alcohol intake: never Substance use: never Substance use type: does not use Do You Feel Safe in your Home?: Yes Lack of Transportation: No Lack of Food: Never True Current Housing: I Have Housing Concerned About Future Housing: No Difficulty Paying Gas/Electric Bills: No Difficulty Paying for Meds: No Currently Unemployed: No Education: High School Diploma/GED Difficulty w/ Childcare or Family Care: No Spiritual care concerns: No Meds Home Medications and Allergies Home Medications ?Medication ?Instructions ?Recorded ?Confirmed ?Type potassium chloride 20 mEq 20 meq PO BID 09/11/23 02/11/25 History tablet,extended release(part/cryst) (Klor-Con M) gabapentin 600 mg tablet 600 mg PO TID 07/16/24 02/11/25 History meloxicam 7.5 mg tablet 7.5 mg PO DAILY 07/16/24 02/11/25 History ondansetron HCl 8 mg tablet 8 mg PO Q12H PRN nausea/vomiting 07/16/24 02/11/25 History acetaminophen 325 mg tablet 650 mg (2 x 325 mg) PO Q6H PRN 07/30/24 02/11/25 Rx Mild Pain (1-3) Or Fever #30 tabs cholecalciferol (vitamin D3) 50 50 mcg PO BID 02/11/25 02/11/25 History mcg (2,000 unit) tablet (D3 DOTS) esomeprazole magnesium 40 mg 40 mg PO Q24H 02/11/25 02/11/25 History capsule,delayed release fluoxetine 40 mg capsule 40 mg PO DAILY 02/11/25 02/11/25 History loratadine 10 mg tablet 10 mg PO Q24H 02/11/25 02/11/25 History olaparib 100 mg tablet (Lynparza) 200 mg PO BID 02/11/25 02/11/25 History pyridoxine (vitamin B6) 100 mg 200 mg PO BID 02/11/25 02/11/25 History tablet Allergies Allergy/AdvReac Type Severity Reaction Status Date / Time coconut Allergy Severe Anaphylaxis Verified 02/11/25 16:14 adhesive tape Allergy Unknown Other Verified 02/11/25 16:14 celecoxib (From Celebrex) AdvReac Rash Verified 02/11/25 16:14 Vital Signs Vital Signs - 24 hr 02/11/25 16:17 02/11/25 19:09 02/11/25 20:34 Temperature 98.2 F Pulse Rate 112 H 96 85 Respiratory Rate 16 18 18 Blood Pressure 110/72 107/49 L 113/83 Pulse Oximetry 97 98 100 Oxygen Delivery Room Air 02/11/25 22:05 02/12/25 06:00 Temperature 98.9 F 98.8 F Pulse Rate 104 H 94 Respiratory Rate 18 16 Blood Pressure 115/85 111/55 L Pulse Oximetry 99 95 Oxygen Delivery Exam Const: General: cooperative, comfortable, no acute distress, cachectic and malnourished; No well nourished Orientation/consciousness: patient oriented x3 Limitations: no limitations and No altered mental status HENMT: Head: normal to inspection Eyes: General: appearance normal, both eyes and all related structures Neck: Neck: normal visual inspection and full ROM Chest: Chest palpation & inspection: normal inspection of the chest Resp: Effort & Inspection: normal respiratory effort and able to speak in complete sentences GI: Inspection: normal to inspection Back/Spine/Pelvis: Back: no CVA tenderness Skin: General skin exam: normal color Neuro: General: patient oriented x3 and moves all extremities Extrem: General: normal to inspection and full ROM Psych: Appearance: grossly normal and well kempt Results Labs 02/12/25 06:04 02/12/25 06:04 Labs: Short CBC 02/11/25 02/12/25 Range/Units 18:03 06:04 WBC 14.4 H 9.1 (4.5-10.0) K/mm3 Hgb 8.3 L 6.2 L* (12.0-15.0) g/dL Hct 24.3 L 19.0 L* (37.0-47.0) % Plt Count 220 160 (150-375) k/mm3 BMP 02/11/25 02/12/25 18:03 06:04 Sodium 133 L 135 L Potassium 3.0 L 3.3 L Chloride 101 106 Carbon Dioxide 24 25 BUN 24 H 21 H Creatinine 1.50 H 1.26 H Glucose 138 H 96 Calcium 8.7 8.1 L Liver Function 02/11/25 Range/Units 18:03 Total Bilirubin 0.8 (0.2-1.3) mg/dL AST 31 (14-36) U/L ALT 17 (6-35) U/L Alkaline Phosphatase 129 H (38-126) U/L Albumin 3.3 L (3.5-5.1) g/dL Urine 02/11/25 Range/Units 21:46 Urine Color Yellow (Yellow) Urine Appearance Turbid H (Clear) Urine pH 5.5 (5.0-9.0) Ur Specific [place] 1.041 H (1.001-1.035) Urine Protein 2+ H (Negative) mg/dL Urine Glucose (UA) Negative (Negative) mg/dL Imaging My impression: I reviewed her CT scan myself. There is no delayed nephrogram. There was pelviectasis limited to the renal pelvis. No hydroureter. Stent is in good position. I did see the abnormality they were talking about in the deep pelvis with the course of the stent near the bowel
[2025-02-12 08:08] LABS: Hemoglobin 6.2 g/dL (12.0-15.0)
[2025-02-12 08:09] LABS: Hematocrit 18.9 % (37.0-47.0)
[2025-02-12 08:13] LABS: Anion Gap 6 mmol/L (4-12); Blood Urea Nitrogen 21 mg/dL (7-17); Calcium 8.1 mg/dL (8.4-10.2); Carbon Dioxide 24 mmol/L (22-30); Chloride 105 mmol/L (98-107); Estimated CRCL calculation 34 ml/min; Estimated Glomerular Filt Rate 41; Glucose 97 mg/dL (65-110); Magnesium 1.5 mg/dL (1.6-2.3); Potassium 3.3 mmol/L (3.4-5.0); Sodium 135 mmol/L (137-145)
[2025-02-12 08:34] LABS: Basophils Percent Auto 0.2 % (0.2-1.2); Eosinophils Percent Auto 0.1 % (0-4.4); Hemoglobin 7.5 g/dL (12.0-15.0); Immature Granulocyte Absolute 0.06 K/mm3 (0.00-0.031); Immature Granulocyte Percent A 0.6 % (0-0.5); Lymphocytes Absolute Auto 0.38 K/mm3 (0.9-3.2); Lymphocytes Percent Auto 3.6 % (18.3-44.2); Mean Corpuscular HGB Conc 32.6 g/dl (32-36); Mean Corpuscular Hemoglobin 35.7 pg (26-34); Mean Corpuscular Volume 109.5 fl (80-100); Mean Platelet Volume 10.9 fl (7.4-10.4); Monocytes Absolute Auto 0.8 K/mm3 (0.1-0.6); Monocytes Percent Auto 7.4 % (2.6-8.5); Neutrophils Absolute Auto 9.2 K/mm3 (1.3-6.7); Neutrophils Percent Auto 88.1 % (45.5-73.1); Platelet Count Result 191 k/mm3 (150-375); Red Cell Distribution Width 21.5 % (11.5-14.5); White Blood Count 10.5 K/mm3 (4.5-10.0)
[2025-02-12 08:49] LABS: Alanine Aminotransferase 15 U/L (6-35); Albumin Level 2.8 g/dL (3.5-5.1); Alkaline Phosphatase 106 U/L (38-126); Anion Gap 7 mmol/L (4-12); Aspartate Amino Transferase 27 U/L (14-36); Bilirubin,Total 0.4 mg/dL (0.2-1.3); Blood Urea Nitrogen 21 mg/dL (7-17); Calcium 8.5 mg/dL (8.4-10.2); Carbon Dioxide 22 mmol/L (22-30); Chloride 106 mmol/L (98-107); Estimated CRCL calculation 34 ml/min; Estimated Glomerular Filt Rate 41; Glucose 105 mg/dL (65-110); Potassium 3.5 mmol/L (3.4-5.0); Sodium 135 mmol/L (137-145)
[2025-02-12 08:53] LABS: Anisocytosis 2+; Hypochromasia 2+; Platelet Estimate Adequate (Adequate); Schistocytes Rare
[2025-02-12] MEDS: CHOLECALCIFEROL (VITAMIN D3) 25 MCG (1,000 UNITS) TABLET 50 MCG PO ×2 (09:20→16:33)
[2025-02-12] MEDS: PYRIDOXINE HCL 50 MG TABLET 200 MG PO (09:20)
[2025-02-12] MEDS: FLUoxetine HCL 20 MG CAPSULE 40 MG PO (09:20)
[2025-02-12] MEDS: LORATADINE 10 MG TABLET PO (09:20)
[2025-02-12] MEDS: GABAPENTIN 300 MG CAPSULE 600 MG PO ×3 (09:20→16:33)
[2025-02-12] MEDS: POTASSIUM CHLORIDE 20 MEQ ER TABLET PO ×2 (09:20→16:33)
[2025-02-12] MEDS: PANTOPRAZOLE 40 MG TABLET PO (09:21)
[2025-02-12 10:31] LABS: Iron 25 ug/dL (37-170)
[2025-02-12 10:40] LABS: Percent Iron Saturation 21 % (20-50)
[2025-02-12 11:43] LABS: Folic Acid > 20.0 ng/mL (2.76->20)
--- NOTE | 2025-02-12 12:50 | P.PNIM_ITS ---
Progress Note: A&P Assessment and Plan (1) Urinary tract infection: Code(s): N39.0 - Urinary tract infection, site not specified Status: Acute (2) Acute on chronic kidney failure: Code(s): N17.9 - Acute kidney failure, unspecified; N18.9 - Chronic kidney disease, unspecified Status: Acute (3) Dehydration: Code(s): E86.0 - Dehydration Status: Acute (4) Hypokalemia: Code(s): E87.6 - Hypokalemia Status: Acute (5) Hydronephrosis: Code(s): N13.30 - Unspecified hydronephrosis Status: Acute (6) Ileus: Code(s): K56.7 - Ileus, unspecified Status: Acute (7) Chronic anemia: Code(s): D64.9 - Anemia, unspecified Status: Acute (8) Ovarian cancer: Code(s): C56.9 - Malignant neoplasm of unspecified ovary Status: Acute Plan Abd pain and vomiting Presented with abd pain and vomting x 3 days Noted improvement in abd pain CT AP generalized mild dilation of the small bowel presumably due to ileus, early obstruction not excluded Bowel sounds present and no abd pain start clear liquid diet and advance as tolerated Hydronephrosis with right ureteral stent CT AP moderate right pelvictasis and caliectasis, despute the presented of a ureteral stent, which may represent chronic dilation or stent dysfunction with acute hydronephrosis urology consulted, evalauted and noted that patient will follow up with primary urologist on discharge Fistulae potential enteroureteral, enterovesicular and or enterovesicular fistulae, with presumed necrotic, mesenteric lymph node in the right lower quadrant with Gen surgery consulted PRN pain control Anemia Hb 7.5 B12/Folate wnl Isat 21 GI consulted for GI bleed eval Ovarian cancer Patient on treatment, will restart Chemotherapy in 2 weeks Dehydration and Hypokalemia Patient unablt to eat and vomiting x 3 days continue IVF and ZOfran prn K replaced, monitor DVT prophylaxis on SCDs, due to anemia Subjective Date/time seen: 02/12/25 12:50 Interval history: Comfortable at bedside Review of Systems Review of Systems: 12 systems were reviewed and are negativ e except for as per HPI. Exam Narrative: General: Mildly ill-appearing female supine in bed in no distress. Weight: 66 kg. BMI: 23.5. HEENT: PERRL, EOMI. Sclera anicteric. Tacky mucous membranes. Neck: Supple. Respiratory: Lungs are clear to auscultation bilaterally. Cardiovascular: Regular rate and rhythm with S1-S2. Gastrointestinal: Abdomen is soft and slightly distended with positive bowel sounds. Mild tenderness to palpation over the right flank. No CVA tenderness. Skin: Warm and dry. Extremities: No cyanosis, clubbing, or edema. Radial and pedal pulses intact. Neurological: Alert. Cranial nerves 2-12 are grossly intact. No gross focal deficits to casual conversation. Psychiatric: Pleasant and cooperative with normal mood and affect. Judgment and insight intact. Objective Data Vital Signs Vital Signs: Vital Signs - 24 hr 02/11/25 16:17 02/11/25 19:09 02/11/25 20:34 Temperature 98.2 F Pulse Rate 112 H 96 85 Respiratory Rate 16 18 18 Blood Pressure 110/72 107/49 L 113/83 Pulse Oximetry 97 98 100 Oxygen Delivery Room Air 02/11/25 22:05 02/12/25 06:00 Temperature 98.9 F 98.8 F Pulse Rate 104 H 94 Respiratory Rate 18 16 Blood Pressure 115/85 111/55 L Pulse Oximetry 99 95 Oxygen Delivery Intake/Output Intake/Output: Intake & Output 02/09/25 02/10/25 02/11/25 02/12/25 23:59 23:59 23:59 23:59 Intake Total 1000 437 Output Total 200 Balance 800 437 Meds/Results Medications: Active Medications Generic Name Dose Route Start Last Admin Trade Name Freq PRN Reason Stop Dose Admin Acetaminophen 650 mg 02/12/25 04:25 Acetaminophen 325 Mg Tablet PO Q6H PRN Mild Pain (1-3) or Fever Fluoxetine HCl 40 mg 02/12/25 09:00 02/12/25 09:20 Fluoxetine Hcl 20 Mg Capsule PO 40 mg DAILY DEANA Administration Gabapentin 600 mg 02/12/25 09:00 02/12/25 12:26 Gabapentin 300 Mg Capsule PO 600 mg TID DEANA Administration Heparin Sodium (Beef Lung) 50 units 02/12/25 09:00 02/12/25 11:42 Heparin Flush 50 Units/5 Ml Syringe IV PUSH 50 units QAM DEANA Administration Heparin Sodium (Beef Lung) 50 units 02/11/25 18:24 Heparin Flush 50 Units/5 Ml Syringe IV PUSH PRN PRN after intermittent infusion Heparin Sodium (Beef Lung) 50 units 02/11/25 18:24 Heparin Flush 50 Units/5 Ml Syringe IV PUSH PRN PRN after blood draws Heparin Sodium (Porcine) 500 units 02/11/25 18:24 Heparin Sodium Lock Flush 500 Units/5 Ml Syringe IV PUSH PRN PRN see comments below Ceftriaxone Sodium 1 gm in 50 mls @ 100 mls/hr 02/12/25 05:00 02/12/25 05:48 Rocephin 1 Gm/Ns 50 Ml IVPB 100 mls/hr Q24H DEANA Administration Sodium Chloride 1,000 mls @ 75 mls/hr 02/12/25 04:30 02/12/25 05:49 Normal Saline Iv IV CONT 75 mls/hr .[id number] DEANA Administration Loratadine 10 mg 02/12/25 09:00 02/12/25 09:20 Loratadine 10 Mg Tablet PO 10 mg DAILY DEANA Administration Miscellaneous Information 0 each 02/12/25 04:50 Olaparib [Lynparza] 100 Mg Tablet- Nonformulary. Please Obtain A Home Supply If Possible. XX 03/14/25 04:49 CLARIFY DEANA Morphine Sulfate 2 mg 02/12/25 03:29 02/12/25 03:43 Morphine Sulfate (*Crx) 2 Mg/Ml Inj IV PUSH 2 mg Q4H PRN Administration Pain Rated 7-10 Non-Formulary Medication 200 mg 02/12/25 09:00 Olaparib [Lynparza] PO 03/14/25 08:59 BID DEANA Ondansetron HCl 4 mg 02/12/25 03:29 02/12/25 03:44 Ondansetron Inj 4 Mg/2 Ml Vial IV PUSH 4 mg Q6H PRN Administration Nausea And Vomiting Pantoprazole Sodium 40 mg 02/12/25 09:00 02/12/25 09:21 Pantoprazole 40 Mg Tablet PO 40 mg QAM DEANA Administration Potassium Chloride 20 meq 02/12/25 08:00 02/12/25 09:20 Potassium Chloride 20 Meq Er Tablet PO 20 meq BIDWM DEANA Administration Pyridoxine HCl 200 mg 02/12/25 09:00 02/12/25 09:20 Pyridoxine Hcl 50 Mg Tablet PO 200 mg QAM DEANA Administration Sodium Chloride 10 ml 02/11/25 22:00 02/12/25 05:50 Central Line Flush IV PUSH 10 ml Q8HR DEANA Administration Vitamin D 50 mcg 02/12/25 09:00 02/12/25 09:20 Cholecalciferol (Vitamin D3) 25 Mcg (1,000 Units) Tablet PO 50 mcg BID DEANA Administration Radiology Results: ITS Impressions Abdomen/Pelvis CT 02/11/25 19:12 IMPRESSION: Moderate right pelviectasis and caliectasis, despite the presence of a ureteral stent, may represent chronic dilation or stent dysfunction with acute hydronephrosis. Potential enteroureteral, enterovesicular, and/or enterovesicular fistulae. Presumed necrotic mesenteric lymph node in the right lower quadrant. Generalized mild dilation of the small bowel, presumably due to ileus. Early/partial obstruction not excluded. Renal Ultrasound 02/12/25 10:47 IMPRESSION: 1. Moderate right hydronephrosis with right internal ureteral stent in expected position. Labs Labs: Laboratory Results - last 24 hr 02/11/25 02/11/25 02/12/25 18:03 21:46 06:04 WBC 14.4 H 9.1 RBC 2.28 L 1.75 L Hgb 8.3 L 6.2 L* Hct 24.3 L 19.0 L* MCV 106.6 H 108.6 H MCH 36.4 H 35.4 H MCHC 34.2 32.6 RDW 21.4 H 21.3 H Plt Count 220 160 MPV 10.8 H 11.0 H Immature Gran % (Auto) 0.8 H Neut % (Auto) 89.1 H Lymph % (Auto) 2.6 L Reynolds % (Auto) 7.4 Eos % (Auto) 0.0 Baso % (Auto) 0.1 L Lymph # (Auto) 0.38 L Reynolds # (Auto) 1.1 H Eos # (Auto) 0.0 Baso # (Auto) 0.0 Abs Immat Gran (auto) 0.12 H Absolute Neuts (auto) 12.8 H Absolute Nucleated RBC 0.000 Band Neutrophils % Not Reportable Nucleated RBC % 0.0 Platelet Estimate Adequate Hypochromasia 2+ Poikilocytosis 1+ Anisocytosis 2+ Schistocytes None seen Sodium 133 L 135 L Potassium 3.0 L 3.3 L Chloride 101 106 Carbon Dioxide 24 25 Anion Gap 8 4 BUN 24 H 21 H Creatinine 1.50 H 1.26 H Estim Creat Clear Calc 31 35 Estimated GFR 34 L 42 L Glucose 138 H 96 Calcium 8.7 8.1 L Magnesium 1.5 L Iron TIBC % Saturation Ferritin Total Bilirubin 0.8 AST 31 ALT 17 Alkaline Phosphatase 129 H Total Protein 6.0 L Albumin 3.3 L Lipase 27 Vitamin B12 Folate Urine Color Yellow Urine Appearance Turbid H Urine pH 5.5 Ur Specific [place] 1.041 H Urine Protein 2+ H Urine Glucose (UA) Negative Urine Ketones Trace H Ur Blood (Man) 2+ H Urine Nitrate Negative Urine Bilirubin Negative Urine Urobilinogen 0.2 Add Ur Microanalysis Reviewed Leukocyte Esterase Rfl 3+ H Urine RBC 0-2 Urine WBC >100 H Ur Squamous Epith Cells None seen Urine Bacteria 4+ H Urine Casts 3-5 02/12/25 02/12/25 02/12/25 06:57 08:27 08:30 WBC 8.8 10.5 H RBC 1.74 L 2.10 L Hgb 6.2 L* 7.5 L Hct 18.9 L* 23.0 L MCV 108.6 H 109.5 H MCH 35.6 H 35.7 H MCHC 32.8 32.6 RDW 21.7 H 21.5 H Plt Count 157 191 MPV 11.4 H 10.9 H Immature Gran % (Auto) 0.6 H Neut % (Auto) 88.1 H Lymph % (Auto) 3.6 L Reynolds % (Auto) 7.4 Eos % (Auto) 0.1 Baso % (Auto) 0.2 Lymph # (Auto) 0.38 L Reynolds # (Auto) 0.8 H Eos # (Auto) 0.0 Baso # (Auto) 0.0 Abs Immat Gran (auto) 0.06 H Absolute Neuts (auto) 9.2 H Absolute Nucleated RBC 0.000 Band Neutrophils % Not Reportable Nucleated RBC % 0.0 Platelet Estimate Adequate Hypochromasia 2+ Poikilocytosis Anisocytosis 2+ Schistocytes Rare Sodium 135 L 135 L Potassium 3.3 L 3.5 Chloride 105 106 Carbon Dioxide 24 22 Anion Gap 6 7 BUN 21 H 21 H Creatinine 1.30 H 1.30 H Estim Creat Clear Calc 34 34 Estimated GFR 41 L 41 L Glucose 97 105 Calcium 8.1 L 8.5 Magnesium 1.5 L Iron 25 L TIBC 121 L % Saturation 21 Ferritin 1510.00 H Total Bilirubin 0.4 AST 27 ALT 15 Alkaline Phosphatase 106 Total Protein 6.0 L Albumin 2.8 L Lipase Vitamin B12 952.0 H Folate > 20.0 H Urine Color Urine Appearance Urine pH Ur Specific [place] Urine Protein Urine Glucose (UA) Urine Ketones Ur Blood (Man) Urine Nitrate Urine Bilirubin Urine Urobilinogen Add Ur Microanalysis Leukocyte Esterase Rfl Urine RBC Urine WBC Ur Squamous Epith Cells Urine Bacteria Urine Casts Quality VTE Prophylaxis VTE prophylaxis: mechanical ordered
[2025-02-12 14:00] VITALS: BP 93/57; PULSE 89; RESP 16; TEMP 36.4; O2SAT 98
--- NOTE | 2025-02-12 15:17 | P.CONGS_ITS ---
Assessment and Plan Assessment and plan (1) Abnormal CT of the abdomen: Code(s): R93.5 - Abnormal findings on diagnostic imaging of other abdominal regions, including retroperitoneum Status: Acute Assessment and Plan: * Her CT scan on this admission shows a mesenteric mass, as well as a loss of fat plane from a loop of small bowel to the adjacent right ureter and vaginal cuff and urinary bladder. There is no air in the bladder that would suggest a enterovesical fistula. UA is abnormal, but she is not having any urinary symptoms. She is not having any vaginal discharge or findings to suggest a enterovaginal fistula. No indication for urgent surgical intervention. She is currently stable. She has recurrent metastatic ovarian cancer that is currently being followed by an Oncologist at [facility]. There are no acute findings that would require urgent surgical management and we would recommend at this time to follow-up as scheduled with her Oncologist after discharge. Nursing staff is going to provide the patient with a disc of her CT scan to bring to her appointment. (2) Recurrent carcinoma of ovary: Code(s): C56.9 - Malignant neoplasm of unspecified ovary Status: Acute Assessment and Plan: * Follow-up with Oncology as an outpatient for continued treatment. (3) Hydronephrosis: Code(s): N13.30 - Unspecified hydronephrosis Status: Acute (4) Abnormal urinalysis: Code(s): R82.90 - Unspecified abnormal findings in urine Status: Acute Assessment and Plan: * UA abnormal, no urinary symptoms. Urology following and recommending f/u outpatient with [facility] in 2 weeks as scheduled. Urine culture pending (5) Nausea and vomiting in adult: Code(s): R11.2 - Nausea with vomiting, unspecified Status: Acute Assessment and Plan: * CT scan suggested an ileus. Nausea and vomiting has resolved. Bowels are moving. She is tolerating clear liquids. Okay to advance diet as tolerated and monitor with serial abdominal exams. Plan I have discussed the patient's case and plan of care with Dr. Daniels. 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 She is a fair historian, but some history was also provided by her who was in the room. She was treated for ovarian cancer at [facility] in 2019 with a total abdominal hysterectomy and reportedly had the ovarian cancer involving the colon, requiring partial colectomy at the time of surgery. She recently found out in the past few weeks that her ovarian cancer returned after an ER visit at [facility] where she was found to have compression of the right ureter due to a cancerous mass. She had a right ureteral stent placed at [facility] and was planning to follow-up with her Oncologist at [facility] in 2 weeks. She has not been told there was a fistula during cystoscopy. She denies any dysuria, frequency, urgency, hematuria, or other urinary complaints. She denies any vaginal discharge. She developed nausea, vomiting, and diarrhea 3 days ago. She took Imodium and her diarrhea stopped. Although, she continued to have nausea and dry heaving. Due to this issue she presented to the ED for evaluation. She reports having some RLQ pain that feels like a soreness that she thought was related to the dry heaving. This pain has improved. Workup in the ED showed CT evidence of possible ileus, moderate right pelviectasis and caliectasis with right ureteral stent with acute hydronephrosis, potential fistulas (enterourerteral, enterovaginal, and/or enterovesicular). She was admitted and is currently on a clear liquid diet. Urology consulted. UA abnormal with urine culture pending. Her nausea has improved. No vomiting since the ER. She reports her RLQ abdominal pain is better, very mild at this time. She is passing lots of flatus and had a liquid BM this morning. Review of Systems 2 Review of Systems: All systems reviewed & are unremarkable except as noted in HPI and below PMFSH Past Medical History Medical History (Updated 02/12/25 @ 15:56 by MICHAEL Arellaon) Ureteral fistula Recurrent carcinoma of ovary Nausea and vomiting in adult Hydronephrosis Chronic kidney disease, stage 3 Gastroesophageal reflux disease Breast cancer Depression Anxiety Irritable bowel syndrome Chronic anemia Peripheral neuropathy due to chemotherapy Osteoporosis Ovarian cancer Approximately 2019 with recurrence in 2021 Surgical History Surgical History History of colon resection Reports having a partial colectomy at the time of her total abdominal hysterectomy in 2019 at [facility] due to her ovarian cancer involving the colon. CT scan of the abdomen/pelvis shows a rectal and cecal anastomosis. History of cholecystectomy History of right mastectomy History of total abdominal hysterectomy and bilateral salpingo-oophorectomy History of left knee replacement (2022) Family History Family History Mother Family history of malignant neoplasm of breast in first degree relative Father Family history of lung disease Daughter Breast cancer Social History Social History Social History: She lives with her of 32 years. 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 She has 2 daughters and a son. Her youngest daughter was just diagnosed with breast cancer. She used to smoke up to a pack of cigarettes per day but then would not smoke for up to a week after that. She did this for proximally 30 years but quit smoking in the . She denies any history of heavy alcohol use or illicit substance use. She ambulates with a Rollator. Code status: Full code Surrogate decision maker: Years smoked: 20 Smoking status: Never smoker Alcohol intake: never Substance use: never Substance use type: does not use Do You Feel Safe in your Home?: Yes Lack of Transportation: No Lack of Food: Never True Current Housing: I Have Housing Concerned About Future Housing: No Difficulty Paying Gas/Electric Bills: No Difficulty Paying for Meds: No Currently Unemployed: No Education: High School Diploma/GED Difficulty w/ Childcare or Family Care: No Spiritual care concerns: No Meds Home Medications and Allergies Home Medications ?Medication ?Instructions ?Recorded ?Confirmed ?Type potassium chloride 20 mEq 20 meq PO BID 09/11/23 02/11/25 History tablet,extended release(part/cryst) (Klor-Con M) gabapentin 600 mg tablet 600 mg PO TID 07/16/24 02/11/25 History meloxicam 7.5 mg tablet 7.5 mg PO DAILY 07/16/24 02/11/25 History ondansetron HCl 8 mg tablet 8 mg PO Q12H PRN nausea/vomiting 07/16/24 02/11/25 History acetaminophen 325 mg tablet 650 mg (2 x 325 mg) PO Q6H PRN 07/30/24 02/11/25 Rx Mild Pain (1-3) Or Fever #30 tabs cholecalciferol (vitamin D3) 50 50 mcg PO BID 02/11/25 02/11/25 History mcg (2,000 unit) tablet (D3 DOTS) esomeprazole magnesium 40 mg 40 mg PO Q24H 02/11/25 02/11/25 History capsule,delayed release fluoxetine 40 mg capsule 40 mg PO DAILY 02/11/25 02/11/25 History loratadine 10 mg tablet 10 mg PO Q24H 02/11/25 02/11/25 History olaparib 100 mg tablet (Lynparza) 200 mg PO BID 02/11/25 02/11/25 History pyridoxine (vitamin B6) 100 mg 200 mg PO BID 02/11/25 02/11/25 History tablet Allergies Allergy/AdvReac Type Severity Reaction Status Date / Time coconut Allergy Severe Anaphylaxis Verified 02/11/25 16:14 adhesive tape Allergy Unknown Other Verified 02/11/25 16:14 celecoxib (From Celebrex) AdvReac Rash Verified 02/11/25 16:14 Vital Signs Vital Signs - 24 hr 02/11/25 16:17 02/11/25 19:09 02/11/25 20:34 Temperature 98.2 F Pulse Rate 112 H 96 85 Respiratory Rate 16 18 18 Blood Pressure 110/72 107/49 L 113/83 Pulse Oximetry 97 98 100 Oxygen Delivery Room Air 02/11/25 22:05 02/12/25 06:00 02/12/25 14:00 Temperature 98.9 F 98.8 F 97.5 F L Pulse Rate 104 H 94 89 Respiratory Rate 18 16 16 Blood Pressure 115/85 111/55 L 93/57 L Pulse Oximetry 99 95 98 Oxygen Delivery Exam 2 Const: General: comfortable and no acute distress Nutritional Appearance: a verage body habitus Orientation/consciousness: patient oriented x3 HENMT: Head: normocephalic and atraumatic Ears: hearing grossly normal bilaterally Mouth: Yes moist mucous membranes Eyes: General: appearance normal, both eyes and all related structures P upils: Equal, round and reactive pupils present Neck: Neck: normal visual inspection and full ROM Resp: Effort & Inspection: no respiratory distress Auscultation: clear to auscultation bilaterally Cardio: Rate: regular rate Rhythm: regular rhythm Peripheral pulses: P eripheral pulses 2+ throughout GI: Inspection: non-distended and scar (large midline scar) GI Palp: Yes Soft to palpation, Yes Tenderness to palpation present (GI) (mild RUQ tenderness), No Guarding due to palpation present (GI), Yes No hepatosplenomegaly present, No Hernia present and No Rebound tenderness present Auscultation: normal bowel sounds Skin: General skin exam: normal color Neuro: General: moves all extremities and no focal motor deficits Speech: n ormal speech Motor exam (neuro): 5/5 motor strength present throughout Extrem: General: normal to inspection and no edema Psych: Mental Status: mental status grossly normal Attitude: cooperative Insight: Good insight present (Psych) Judgement: Good judgement present (Psych) Results Labs 02/12/25 08:30 02/12/25 08:30 Labs: Abnormal lab results 02/11/25 02/11/25 02/12/25 Range/Units 18:03 21:46 06:04 WBC 14.4 H (4.5-10.0) K/mm3 RBC 2.28 L 1.75 L (4.2-5.4) M/mm3 Hgb 8.3 L 6.2 L* (12.0-15.0) g/dL Hct 24.3 L 19.0 L* (37.0-47.0) % MCV 106.6 H 108.6 H (80-100) fl MCH 36.4 H 35.4 H (26-34) pg RDW 21.4 H 21.3 H (11.5-14.5) % MPV 10.8 H 11.0 H (7.4-10.4) fl Immature Gran % (Auto) 0.8 H (0-0.5) % Neut % (Auto) 89.1 H (45.5-73.1) % Lymph % (Auto) 2.6 L (18.3-44.2) % Baso % (Auto) 0.1 L (0.2-1.2) % Lymph # (Auto) 0.38 L (0.9-3.2) K/mm3 [place] # (Auto) 1.1 H (0.1-0.6) K/mm3 Abs Immat Gran (auto) 0.12 H (0.00-0.031) K/mm3 Absolute Neuts (auto) 12.8 H (1.3-6.7) K/mm3 Sodium 133 L 135 L (137-145) mmol/L Potassium 3.0 L 3.3 L (3.4-5.0) mmol/L BUN 24 H 21 H (7-17) mg/dL Creatinine 1.50 H 1.26 H (0.7-1.0) mg/dL Estimated GFR 34 L 42 L (59 - ) Glucose 138 H (65-110) mg/dL Calcium 8.1 L (8.4-10.2) mg/dL Magnesium 1.5 L (1.6-2.3) mg/dL Iron (37-170) ug/dL TIBC (261-462) ug/dL Ferritin (11.1-264) ng/mL Alkaline Phosphatase 129 H (38-126) U/L Total Protein 6.0 L (6.3-8.2) g/dL Albumin 3.3 L (3.5-5.1) g/dL Vitamin B12 (239-931) pg/mL Folate (2.76->20) ng/mL Urine Appearance Turbid H (Clear) Ur Specific [place] 1.041 H (1.001-1.035) Urine Protein 2+ H (Negative) mg/dL Urine Ketones Trace H (Negative) mg/dL Ur Blood (Man) 2+ H (Negative) Leukocyte Esterase Rfl 3+ H (Negative) TIMOTHY/UL Urine WBC >100 H (0-3) /hpf Urine Bacteria 4+ H /hpf 02/12/25 02/12/25 02/12/25 Range/Units 06:57 08:27 08:30 WBC 10.5 H (4.5-10.0) K/mm3 RBC 1.74 L 2.10 L (4.2-5.4) M/mm3 Hgb 6.2 L* 7.5 L (12.0-15.0) g/dL Hct 18.9 L* 23.0 L (37.0-47.0) % MCV 108.6 H 109.5 H (80-100) fl MCH 35.6 H 35.7 H (26-34) pg RDW 21.7 H 21.5 H (11.5-14.5) % MPV 11.4 H 10.9 H (7.4-10.4) fl Immature Gran % (Auto) 0.6 H (0-0.5) % Neut % (Auto) 88.1 H (45.5-73.1) % Lymph % (Auto) 3.6 L (18.3-44.2) % Baso % (Auto) (0.2-1.2) % Lymph # (Auto) 0.38 L (0.9-3.2) K/mm3 [place] # (Auto) 0.8 H (0.1-0.6) K/mm3 Abs Immat Gran (auto) 0.06 H (0.00-0.031) K/mm3 Absolute Neuts (auto) 9.2 H (1.3-6.7) K/mm3 Sodium 135 L 135 L (137-145) mmol/L Potassium 3.3 L (3.4-5.0) mmol/L BUN 21 H 21 H (7-17) mg/dL Creatinine 1.30 H 1.30 H (0.7-1.0) mg/dL Estimated GFR 41 L 41 L (59 - ) Glucose (65-110) mg/dL Calcium 8.1 L (8.4-10.2) mg/dL Magnesium 1.5 L (1.6-2.3) mg/dL Iron 25 L (37-170) ug/dL TIBC 121 L (261-462) ug/dL Ferritin 1510.00 H (11.1-264) ng/mL Alkaline Phosphatase (38-126) U/L Total Protein 6.0 L (6.3-8.2) g/dL Albumin 2.8 L (3.5-5.1) g/dL Vitamin B12 952.0 H (239-931) pg/mL Folate > 20.0 H (2.76->20) ng/mL Urine Appearance (Clear) Ur Specific [place] (1.001-1.035) Urine Protein (Negative) mg/dL Urine Ketones (Negative) mg/dL Ur Blood (Man) (Negative) Leukocyte Esterase Rfl (Negative) TIMOTHY/UL Urine WBC (0-3) /hpf Urine Bacteria /hpf Diabetes panel 02/11/25 02/12/25 02/12/25 Range/Units 18:03 06:04 06:57 Sodium 133 L 135 L 135 L (137-145) mmol/L Potassium 3.0 L 3.3 L 3.3 L (3.4-5.0) mmol/L Chloride 101 106 105 (98-107) mmol/L Carbon Dioxide 24 25 24 (22-30) mmol/L BUN 24 H 21 H 21 H (7-17) mg/dL Creatinine 1.50 H 1.26 H 1.30 H (0.7-1.0) mg/dL Glucose 138 H 96 97 (65-110) mg/dL Calcium 8.7 8.1 L 8.1 L (8.4-10.2) mg/dL AST 31 (14-36) U/L ALT 17 (6-35) U/L Alkaline Phosphatase 129 H (38-126) U/L Total Protein 6.0 L (6.3-8.2) g/dL Albumin 3.3 L (3.5-5.1) g/dL 02/12/25 Range/Units 08:30 Sodium 135 L (137-145) mmol/L Potassium 3.5 (3.4-5.0) mmol/L Chloride 106 (98-107) mmol/L Carbon Dioxide 22 (22-30) mmol/L BUN 21 H (7-17) mg/dL Creatinine 1.30 H (0.7-1.0) mg/dL Glucose 105 (65-110) mg/dL Calcium 8.5 (8.4-10.2) mg/dL AST 27 (14-36) U/L ALT 15 (6-35) U/L Alkaline Phosphatase 106 (38-126) U/L Total Protein 6.0 L (6.3-8.2) g/dL Albumin 2.8 L (3.5-5.1) g/dL Calcium panel 02/11/25 02/12/25 02/12/25 Range/Units 18:03 06:04 06:57 Calcium 8.7 8.1 L 8.1 L (8.4-10.2) mg/dL Albumin 3.3 L (3.5-5.1) g/dL 02/12/25 Range/Units 08:30 Calcium 8.5 (8.4-10.2) mg/dL Albumin 2.8 L (3.5-5.1) g/dL Pituitary panel 02/11/25 02/12/25 02/12/25 Range/Units 18:03 06:04 06:57 Sodium 133 L 135 L 135 L (137-145) mmol/L Potassium 3.0 L 3.3 L 3.3 L (3.4-5.0) mmol/L Chloride 101 106 105 (98-107) mmol/L Carbon Dioxide 24 25 24 (22-30) mmol/L BUN 24 H 21 H 21 H (7-17) mg/dL Creatinine 1.50 H 1.26 H 1.30 H (0.7-1.0) mg/dL Glucose 138 H 96 97 (65-110) mg/dL Calcium 8.7 8.1 L 8.1 L (8.4-10.2) mg/dL 02/12/25 Range/Units 08:30 Sodium 135 L (137-145) mmol/L Potassium 3.5 (3.4-5.0) mmol/L Chloride 106 (98-107) mmol/L Carbon Dioxide 22 (22-30) mmol/L BUN 21 H (7-17) mg/dL Creatinine 1.30 H (0.7-1.0) mg/dL Glucose 105 (65-110) mg/dL Calcium 8.5 (8.4-10.2) mg/dL Adrenal panel 02/11/25 02/12/25 02/12/25 Range/Units 18:03 06:04 06:57 Sodium 133 L 135 L 135 L (137-145) mmol/L Potassium 3.0 L 3.3 L 3.3 L (3.4-5.0) mmol/L Chloride 101 106 105 (98-107) mmol/L Carbon Dioxide 24 25 24 (22-30) mmol/L BUN 24 H 21 H 21 H (7-17) mg/dL Creatinine 1.50 H 1.26 H 1.30 H (0.7-1.0) mg/dL Glucose 138 H 96 97 (65-110) mg/dL Calcium 8.7 8.1 L 8.1 L (8.4-10.2) mg/dL Total Bilirubin 0.8 (0.2-1.3) mg/dL AST 31 (14-36) U/L ALT 17 (6-35) U/L Alkaline Phosphatase 129 H (38-126) U/L Total Protein 6.0 L (6.3-8.2) g/dL Albumin 3.3 L (3.5-5.1) g/dL 02/12/25 Range/Units 08:30 Sodium 135 L (137-145) mmol/L Potassium 3.5 (3.4-5.0) mmol/L Chloride 106 (98-107) mmol/L Carbon Dioxide 22 (22-30) mmol/L BUN 21 H (7-17) mg/dL Creatinine 1.30 H (0.7-1.0) mg/dL Glucose 105 (65-110) mg/dL Calcium 8.5 (8.4-10.2) mg/dL Total Bilirubin 0.4 (0.2-1.3) mg/dL AST 27 (14-36) U/L ALT 15 (6-35) U/L Alkaline Phosphatase 106 (38-126) U/L Total Protein 6.0 L (6.3-8.2) g/dL Albumin 2.8 L (3.5-5.1) g/dL All other labs normal. Imaging Additional studies: ITS Impressions Abdomen/Pelvis CT 02/11/25 19:12 IMPRESSION: Moderate right pelviectasis and caliectasis, despite the presence of a ureteral stent, may represent chronic dilation or stent dysfunction with acute hydronephrosis. Potential enteroureteral, enterovesicular, and/or enterovesicular fistulae. Presumed necrotic mesenteric lymph node in the right lower quadrant. Generalized mild dilation of the small bowel, presumably due to ileus. Early/partial obstruction not excluded. Renal Ultrasound 02/12/25 10:47 IMPRESSION: 1. Moderate right hydronephrosis with right internal ureteral stent in expected position.
--- NOTE | 2025-02-12 15:29 | P.CONGI_ITS ---
Assessment and Plan Assessment and plan (1) Nausea and vomiting in adult: Code(s): R11.2 - Nausea with vomiting, unspecified Status: Acute Assessment and Plan: resolved, tolerating liquid diet now antiemetics prn will follow as needed (2) Chronic anemia: Code(s): D64.9 - Anemia, unspecified Status: Acute Assessment and Plan: known anemia and she is seeing hem-onc at [facility] denies recent GIB, no blood in stools no indication for scopes at this time (3) Recurrent carcinoma of ovary: Code(s): C56.9 - Malignant neoplasm of unspecified ovary Status: Acute Assessment and Plan: treated with linparza and seeing oncologist recurrent ovarian cancer with possible fistula ureter, urologist on board (4) Ureteral fistula: Code(s): N28.89 - Other specified disorders of kidney and ureter Status: Acute GI Consult Note Consult date/time: 02/12/25 15:29 Reason for consult: anemia, n/v HPI: Karis Kraus is a 70 year old female with history of ovarian cancer being treated at [facility] currently on linparza, breast cancer, 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 She was treated for ovarian cancer at [facility] in 2019 when she had her last colonoscopy, underwent total abdominal hysterectomy and reportedly had the ovarian cancer involving the colon, requiring partial colectomy at the time of surgery. Recently noted compression of the right ureter due to a cancerous mass treated with right ureteral stent placed at [facility] and was planning to follow-up with her Oncologist at [facility] in 2 weeks, also she has chronic anemia. Patient has bone scan as outpatient in few more days. Here with few days of more pain in the right flank radiating into the right mid to lower quadrant, also nausea and vomiting. Denies diarrhea, melena or blood in stools. ER labs were significant for a WBC count of 14.4, hemoglobin 8.3, MCV 106.6, BUN 24, creatinine 1.50. Urinalysis was positive for trace ketones, 3+ leukocyte esterase, greater than 100 WBC, and 4+ bacteria. Abdomen/pelvis CT showed moderate right pelviectasis and caliectasis despite the presence of the stent, potential enteroureteral fistulae. She is feeling much better now, no more nausea and tolerated liquid diet. Review of Systems 2 Constitutional: Constitutional: Denies chills Eyes: Eyes: Denies blurry vision ENT: Reports Normal hearing present Cardiovascular: Cardiovascular: Denies chest pain Respiratory: Respiratory: Denies cough Gastrointestinal: Gastrointestinal: Reports nausea and Reports vomiting Genitourinary: Comments: flank pain Musculoskeletal: Musculoskeletal: Denies neck pain Integumentary/Breasts: Skin/Breast: Denies rash Neurologic: Denies Abnormal speech present Psychiatric: Psychiatric: Denies behavioral changes [facility] Past Medical History Medical History (Updated 02/12/25 @ 15:36 by Casey Vargas MD) Ureteral fistula Recurrent carcinoma of ovary Nausea and vomiting in adult Hydronephrosis Chronic kidney disease, stage 3 Gastroesophageal reflux disease Breast cancer Depression Anxiety Irritable bowel syndrome Chronic anemia Peripheral neuropathy due to chemotherapy Osteoporosis Ovarian cancer Approximately 2020 with recurrence in 2021 Surgical History Surgical History History of cholecystectomy History of right mastectomy History of total abdominal hysterectomy and bilateral salpingo-oophorectomy History of left knee replacement (2022) Family History Family History Mother Family history of malignant neoplasm of breast in first degree relative Father Family history of lung disease Daughter Breast cancer Social History Social History Social History: She lives with her of 32 years. 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 She has 2 daughters and a son. Her youngest daughter was just diagnosed with breast cancer. She used to smoke up to a pack of cigarettes per day but then would not smoke for up to a week after that. She did this for proximally 30 years but quit smoking in the . She denies any history of heavy alcohol use or illicit substance use. She ambulates with a Rollator. Code status: Full code Surrogate decision maker: Years smoked: 20 Smoking status: Never smoker Alcohol intake: never Substance use: never Substance use type: does not use Do You Feel Safe in your Home?: Yes Lack of Transportation: No Lack of Food: Never True Current Housing: I Have Housing Concerned About Future Housing: No Difficulty Paying Gas/Electric Bills: No Difficulty Paying for Meds: No Currently Unemployed: No Education: High School Diploma/GED Difficulty w/ Childcare or Family Care: No Spiritual care concerns: No Meds Home Medications and Allergies Home Medications ?Medication ?Instructions ?Recorded ?Confirmed ?Type potassium chloride 20 mEq 20 meq PO BID 09/11/23 02/11/25 History tablet,extended release(part/cryst) (Klor-Con M) gabapentin 600 mg tablet 600 mg PO TID 07/16/24 02/11/25 History meloxicam 7.5 mg tablet 7.5 mg PO DAILY 07/16/24 02/11/25 History ondansetron HCl 8 mg tablet 8 mg PO Q12H PRN nausea/vomiting 07/16/24 02/11/25 History acetaminophen 325 mg tablet 650 mg (2 x 325 mg) PO Q6H PRN 07/30/24 02/11/25 Rx Mild Pain (1-3) Or Fever #30 tabs cholecalciferol (vitamin D3) 50 50 mcg PO BID 02/11/25 02/11/25 History mcg (2,000 unit) tablet (D3 DOTS) esomeprazole magnesium 40 mg 40 mg PO Q24H 02/11/25 02/11/25 History capsule,delayed release fluoxetine 40 mg capsule 40 mg PO DAILY 02/11/25 02/11/25 History loratadine 10 mg tablet 10 mg PO Q24H 02/11/25 02/11/25 History olaparib 100 mg tablet (Lynparza) 200 mg PO BID 02/11/25 02/11/25 History pyridoxine (vitamin B6) 100 mg 200 mg PO BID 02/11/25 02/11/25 History tablet Allergies Allergy/AdvReac Type Severity Reaction Status Date / Time coconut Allergy Severe Anaphylaxis Verified 02/11/25 16:14 adhesive tape Allergy Unknown Other Verified 02/11/25 16:14 celecoxib (From Celebrex) AdvReac Rash Verified 02/11/25 16:14 Vital Signs Vital Signs - 24 hr 02/11/25 16:17 02/11/25 19:09 02/11/25 20:34 Temperature 98.2 F Pulse Rate 112 H 96 85 Respiratory Rate 16 18 18 Blood Pressure 110/72 107/49 L 113/83 Pulse Oximetry 97 98 100 Oxygen Delivery Room Air 02/11/25 22:05 02/12/25 06:00 02/12/25 14:00 Temperature 98.9 F 98.8 F 97.5 F L Pulse Rate 104 H 94 89 Respiratory Rate 18 16 16 Blood Pressure 115/85 111/55 L 93/57 L Pulse Oximetry 99 95 98 Oxygen Delivery Exam 2 Const: General: comfortable and no acute distress HENMT: Face/Nose/Sinus: Normal nares present Eyes: General: appearance normal, both eyes and all related structures Neck: Neck: supple Resp: Auscultation: clear to auscultation bilaterally Cardio: Rate: regular rate Rhythm: regular rhythm GI: Inspection: non-distended GI Palp: Yes Soft to palpation, Yes Tenderness to palpation present (GI) (mild ttp in right flank, no rebound) and No Guarding due to palpation present (GI) Auscultation: normal bowel sounds Skin: General skin exam: normal color Neuro: Speech: normal speech Motor exam (neuro): 5/5 motor strength present throughout Extrem: General: normal to inspection Psych: Mental Status: mental status grossly normal Results Labs 02/12/25 08:30 02/12/25 08:30 Labs: Short CBC 02/11/25 02/12/25 02/12/25 Range/Units 18:03 06:04 06:57 WBC 14.4 H 9.1 8.8 (4.5-10.0) K/mm3 Hgb 8.3 L 6.2 L* 6.2 L* (12.0-15.0) g/dL Hct 24.3 L 19.0 L* 18.9 L* (37.0-47.0) % Plt Count 220 160 157 (150-375) k/mm3 02/12/25 Range/Units 08:30 WBC 10.5 H (4.5-10.0) K/mm3 Hgb 7.5 L (12.0-15.0) g/dL Hct 23.0 L (37.0-47.0) % Plt Count 191 (150-375) k/mm3 [facility] 02/11/25 02/12/25 02/12/25 18:03 06:04 06:57 Sodium 133 L 135 L 135 L Potassium 3.0 L 3.3 L 3.3 L Chloride 101 106 105 Carbon Dioxide 24 25 24 BUN 24 H 21 H 21 H Creatinine 1.50 H 1.26 H 1.30 H Glucose 138 H 96 97 Calcium 8.7 8.1 L 8.1 L 02/12/25 08:30 Sodium 135 L Potassium 3.5 Chloride 106 Carbon Dioxide 22 BUN 21 H Creatinine 1.30 H Glucose 105 Calcium 8.5 Liver Function 02/11/25 02/12/25 Range/Units 18:03 08:30 Total Bilirubin 0.8 0.4 (0.2-1.3) mg/dL AST 31 27 (14-36) U/L ALT 17 15 (6-35) U/L Alkaline Phosphatase 129 H 106 (38-126) U/L Albumin 3.3 L 2.8 L (3.5-5.1) g/dL Urine 02/11/25 Range/Units 21:46 Urine Color Yellow (Yellow) Urine Appearance Turbid H (Clear) Urine pH 5.5 (5.0-9.0) Ur Specific [place] 1.041 H (1.001-1.035) Urine Protein 2+ H (Negative) mg/dL Urine Glucose (UA) Negative (Negative) mg/dL
[2025-02-12 21:14] VITALS: BP 107/52; PULSE 92; RESP 14; TEMP 37.2; O2SAT 97
[2025-02-12 22:50] VITALS: O2SAT 98
[2025-02-13] VITALS (7 sets, daily range): BP systolic 93–112; BP diastolic 46–58; PULSE 80–91; RESP 12–18; TEMP 36–36.9; O2SAT 92–100; BMI 23.8
[2025-02-13] MEDS: SODIUM CHLORIDE 0.9% IV 1,000 ML 75 ML IV CONT (02:12)
[2025-02-13 06:24] LABS: Potassium 2.9 mmol/L (3.4-5.0)
[2025-02-13 06:41] LABS: Basophils Percent Auto 0.2 % (0.2-1.2); Eosinophils Percent Auto 0.5 % (0-4.4); Immature Granulocyte Absolute 0.04 K/mm3 (0.00-0.031); Immature Granulocyte Percent A 0.7 % (0-0.5); Lymphocytes Absolute Auto 0.29 K/mm3 (0.9-3.2); Lymphocytes Percent Auto 4.8 % (18.3-44.2); Mean Corpuscular HGB Conc 31.7 g/dl (32-36); Mean Corpuscular Hemoglobin 34.9 pg (26-34); Mean Corpuscular Volume 109.9 fl (80-100); Mean Platelet Volume 11.5 fl (7.4-10.4); Monocytes Absolute Auto 0.7 K/mm3 (0.1-0.6); Monocytes Percent Auto 11.5 % (2.6-8.5); Neutrophils Absolute Auto 4.9 K/mm3 (1.3-6.7); Neutrophils Percent Auto 82.3 % (45.5-73.1); Platelet Count Result 162 k/mm3 (150-375); Red Blood Count 1.72 M/mm3 (4.2-5.4); Red Cell Distribution Width 21.4 % (11.5-14.5)
[2025-02-13 06:48] LABS: Hematocrit 18.9 % (37.0-47.0)
[2025-02-13 06:54] LABS: Alanine Aminotransferase 10 U/L (6-35); Albumin Level 2.2 g/dL (3.5-5.1); Alkaline Phosphatase 84 U/L (38-126); Anion Gap 5 mmol/L (4-12); Aspartate Amino Transferase 18 U/L (14-36); Bilirubin,Total 0.2 mg/dL (0.2-1.3); Blood Urea Nitrogen 14 mg/dL (7-17); Calcium 7.7 mg/dL (8.4-10.2); Carbon Dioxide 22 mmol/L (22-30); Chloride 107 mmol/L (98-107); Estimated CRCL calculation 38 ml/min; Estimated Glomerular Filt Rate 47; Glucose 100 mg/dL (65-110); Magnesium 1.3 mg/dL (1.6-2.3); Sodium 134 mmol/L (137-145)
[2025-02-13 07:53] LABS: Hematocrit 20.6 % (37.0-47.0); Hemoglobin 6.7 g/dL (12.0-15.0)
[2025-02-13 08:18] LABS: Anisocytosis 1+; Hypochromasia 1+; Platelet Estimate Adequate (Adequate); Schistocytes None Seen
[2025-02-13] MEDS: FLUoxetine HCL 20 MG CAPSULE 40 MG PO (08:48)
[2025-02-13] MEDS: GABAPENTIN 300 MG CAPSULE 600 MG PO ×2 (08:48→12:19)
[2025-02-13] MEDS: CHOLECALCIFEROL (VITAMIN D3) 25 MCG (1,000 UNITS) TABLET 50 MCG PO (08:48)
[2025-02-13] MEDS: POTASSIUM CHLORIDE 20 MEQ ER TABLET PO (08:48)
[2025-02-13] MEDS: PANTOPRAZOLE 40 MG TABLET PO (08:48)
[2025-02-13] MEDS: PYRIDOXINE HCL 50 MG TABLET 200 MG PO (08:48)
[2025-02-13] MEDS: LORATADINE 10 MG TABLET PO (08:49)
[2025-02-13] MEDS: CENTRAL LINE FLUSH 10 ML IV PUSH ×2 (08:49→15:03)
[2025-02-13] MEDS: SODIUM CHLORIDE 0.9% IV 250 ML 30 ML IV CONT (09:43)
--- NOTE | 2025-02-13 11:39 | P.PNGS_ITS ---
Progress Note: A&P Assessment and Plan (1) Abnormal CT of the abdomen: Code(s): R93.5 - Abnormal findings on diagnostic imaging of other abdominal regions, including retroperitoneum Status: Acute Assessment and Plan: * Pt is currently stable. She has recurrent metastatic ovarian cancer that is currently being followed by an Oncologist at [facility] There are no acute findings that would require urgent surgical management and we would recommend at this time to follow-up as scheduled with her Oncologist after discharge. Patient states that she has informed her oncologist of her current admission. Nursing staff is going to provide the patient with a disc of her CT scan to bring to her appointment. OK for d/c from surgical standpoint. General surgery will sign off at this time. (2) Recurrent carcinoma of ovary: Code(s): C56.9 - Malignant neoplasm of unspecified ovary Status: Acute Assessment and Plan: * Follow-up with Oncology as an outpatient for continued treatment. (3) Hydronephrosis: Code(s): N13.30 - Unspecified hydronephrosis Status: Acute (4) Abnormal urinalysis: Code(s): R82.90 - Unspecified abnormal findings in urine Status: Acute Assessment and Plan: * UA abnormal, no urinary symptoms. Urology following and recommending f/u outpatient with [facility]/Onc in 2 weeks as scheduled. Urine culture positive for Klebsiella pneumoniae. (5) Nausea and vomiting in adult: Code(s): R11.2 - Nausea with vomiting, unspecified Status: Acute Assessment and Plan: * CT scan suggested an ileus. Nausea and vomiting has resolved. Bowel movement this morning. She is tolerating clear liquids. Ok for discharge if she is able to tolerate full diet for lunch. Subjective Subjective Date/Time Seen: 02/13/25 11:39 Interval history: Patient was stable overnight, with no fever or abnormal WBC count. Tolerating clear liquid diet with plans to advance to heart healthy diet for lunch. Abdominal pain is minimal. No nausea/vomiting since yesterday. Last BM this morning. Receiving RBC transfusion for anemia. Exam GI: Inspection: non-distended and scar (large midline scar) Auscultation: normal bowel sounds Objective Data Vital Signs Vital Signs: Vital Signs - 24 hr 02/12/25 14:00 02/12/25 21:14 02/12/25 22:50 Temperature 97.5 F L 98.9 F Pulse Rate 89 92 Respiratory Rate 16 14 Blood Pressure 93/57 L 107/52 L Pulse Oximetry 98 97 98 Oxygen Delivery Autopap 02/13/25 05:39 02/13/25 08:00 02/13/25 09:36 Temperature 98.1 F 98.3 F Pulse Rate 91 82 Respiratory Rate 12 18 Blood Pressure 100/50 L 95/57 L Pulse Oximetry 92 100 100 Oxygen Delivery Room Air 02/13/25 09:55 Temperature 98.4 F Pulse Rate 84 Respiratory Rate 17 Blood Pressure 105/46 L Pulse Oximetry 100 Oxygen Delivery Intake/Output Intake/Output: Intake & Output 02/10/25 02/11/25 02/12/25 02/13/25 23:59 23:59 23:59 23:59 Intake Total 1000 2564 477 Output Total 200 Balance 800 2564 477 Meds/Results Medications: Active Medications Generic Name Dose Route Start Last Admin Trade Name Freq PRN Reason Stop Dose Admin Acetaminophen 650 mg 02/12/25 04:25 Acetaminophen 325 Mg Tablet PO Q6H PRN Mild Pain (1-3) or Fever Fluoxetine HCl 40 mg 02/12/25 09:00 02/13/25 08:48 Fluoxetine Hcl 20 Mg Capsule PO 40 mg DAILY DEANA Administration Gabapentin 600 mg 02/12/25 09:00 02/13/25 08:48 Gabapentin 300 Mg Capsule PO 600 mg TID DEANA Administration Heparin Sodium (Beef Lung) 50 units 02/12/25 09:00 02/13/25 08:48 Heparin Flush 50 Units/5 Ml Syringe IV PUSH 50 units QAM DEANA Administration Heparin Sodium (Beef Lung) 50 units 02/11/25 18:24 02/13/25 05:53 Heparin Flush 50 Units/5 Ml Syringe IV PUSH 50 units PRN PRN Administration after intermittent infusion Heparin Sodium (Beef Lung) 50 units 02/11/25 18:24 Heparin Flush 50 Units/5 Ml Syringe IV PUSH PRN PRN after blood draws Heparin Sodium (Porcine) 500 units 02/11/25 18:24 Heparin Sodium Lock Flush 500 Units/5 Ml Syringe IV PUSH PRN PRN see comments below Ceftriaxone Sodium 1 gm in 50 mls @ 100 mls/hr 02/12/25 05:00 02/13/25 05:52 Rocephin 1 Gm/Ns 50 Ml IVPB 100 mls/hr Q24H DEANA Administration Sodium Chloride 1,000 mls @ 75 mls/hr 02/12/25 04:30 02/13/25 02:12 Normal Saline Iv IV CONT 75 mls/hr .[id number] DEANA Administration Sodium Chloride 250 mls @ 30 mls/hr 02/13/25 06:51 02/13/25 09:43 Normal Saline Iv IV CONT 02/13/25 15:10 30 mls/hr .[id number] STA Administration Loratadine 10 mg 02/12/25 09:00 02/13/25 08:49 Loratadine 10 Mg Tablet PO 10 mg DAILY DEANA Administration Morphine Sulfate 2 mg 02/12/25 03:29 02/12/25 03:43 Morphine Sulfate (*Crx) 2 Mg/Ml Inj IV PUSH 2 mg Q4H PRN Administration Pain Rated 7-10 Ondansetron HCl 4 mg 02/12/25 03:29 02/12/25 22:32 Ondansetron Inj 4 Mg/2 Ml Vial IV PUSH 4 mg Q6H PRN Administration Nausea And Vomiting Pantoprazole Sodium 40 mg 02/12/25 09:00 02/13/25 08:48 Pantoprazole 40 Mg Tablet PO 40 mg QAM DEANA Administration Potassium Chloride 20 meq 02/12/25 08:00 02/13/25 08:48 Potassium Chloride 20 Meq Er Tablet PO 20 meq BIDWM DEANA Administration Pyridoxine HCl 200 mg 02/12/25 09:00 02/13/25 08:48 Pyridoxine Hcl 50 Mg Tablet PO 200 mg QAM DEANA Administration Sodium Chloride 10 ml 02/11/25 22:00 02/13/25 08:49 Central Line Flush IV PUSH 10 ml Q8HR DEANA Administration Vitamin D 50 mcg 02/12/25 09:00 02/13/25 08:48 Cholecalciferol (Vitamin D3) 25 Mcg (1,000 Units) Tablet PO 50 mcg BID DEANA Administration Radiology Results: ITS Impressions Abdomen/Pelvis CT 02/11/25 19:12 IMPRESSION: Moderate right pelviectasis and caliectasis, despite the presence of a ureteral stent, may represent chronic dilation or stent dysfunction with acute hydronephrosis. Potential enteroureteral, enterovesicular, and/or enterovesicular fistulae. Presumed necrotic mesenteric lymph node in the right lower quadrant. Generalized mild dilation of the small bowel, presumably due to ileus. Early/partial obstruction not excluded. Renal Ultrasound 02/12/25 10:47 IMPRESSION: 1. Moderate right hydronephrosis with right internal ureteral stent in expected position. Labs Labs: Laboratory Results - last 24 hr 02/12/25 02/13/25 02/13/25 08:27 06:00 06:00 WBC 6.0 RBC 1.72 L Hgb 6.0 L* Hct 18.9 L* MCV 109.9 H MCH 34.9 H MCHC 31.7 L RDW 21.4 H Plt Count 162 MPV 11.5 H Immature Gran % (Auto) 0.7 H Neut % (Auto) 82.3 H Lymph % (Auto) 4.8 L [place] % (Auto) 11.5 H Eos % (Auto) 0.5 Baso % (Auto) 0.2 Lymph # (Auto) 0.29 L [place] # (Auto) 0.7 H Eos # (Auto) 0.0 Baso # (Auto) 0.0 Abs Immat Gran (auto) 0.04 H Absolute Neuts (auto) 4.9 Absolute Nucleated RBC 0.000 Band Neutrophils % Not Reportable Nucleated RBC % 0.0 Platelet Estimate Adequate Hypochromasia 1+ Anisocytosis 1+ Schistocytes None seen Sodium 134 L Potassium 2.9 L 3.0 L Chloride 107 Carbon Dioxide 22 Anion Gap 5 BUN 14 D Creatinine 1.15 H Estim Creat Clear Calc 38 Estimated GFR 47 L Glucose 100 Calcium 7.7 L Magnesium 1.3 L Iron 25 L TIBC 121 L % Saturation 21 Ferritin 1510.00 H Total Bilirubin 0.2 AST 18 ALT 10 Alkaline Phosphatase 84 Total Protein 5.0 L Albumin 2.2 L Vitamin B12 952.0 H Folate > 20.0 H Blood Type Antibody Screen Crossmatch 02/13/25 02/13/25 07:03 07:43 WBC RBC Hgb 6.7 L* Hct 20.6 L* MCV MCH MCHC RDW Plt Count MPV Immature Gran % (Auto) Neut % (Auto) Lymph % (Auto) [place] % (Auto) Eos % (Auto) Baso % (Auto) Lymph # (Auto) [place] # (Auto) Eos # (Auto) Baso # (Auto) Abs Immat Gran (auto) Absolute Neuts (auto) Absolute Nucleated RBC Band Neutrophils % Nucleated RBC % Platelet Estimate Hypochromasia Anisocytosis Schistocytes Sodium Potassium Chloride Carbon Dioxide Anion Gap BUN Creatinine Estim Creat Clear Calc Estimated GFR Glucose Calcium Magnesium Iron TIBC % Saturation Ferritin Total Bilirubin AST ALT Alkaline Phosphatase Total Protein Albumin Vitamin B12 Folate Blood Type O Negative Antibody Screen Negative Crossmatch See Detail
[2025-02-13] MEDS: ONDANSETRON INJ 4 MG/2 ML VIAL IV PUSH (12:08)
[2025-02-13 12:50] LABS: Lactic Acid Reflex < 0.5 mmol/L (0.7-2.0)
--- NOTE | 2025-02-13 13:29 | P.CDI_ITS ---
CDI Query Clarification Request BMI:23.8 Nutritional Diagnostic Statement: Please refer to the comprehensive nutrition assessment for further information. If you agree with diagnosis of Moderate protein calorie malnutrition related to reduced appetite and intake as evidenced by pt report of poor intake for greater than 1 month, a significant weight loss of -10% x 3 months and NFPE findings for moderate subcutaneous fat loss and moderate muscle wasting. Please specify severity if known: * Mild * Moderate * Severe * Other/Unknown <Pari Myers RN - Last Filed: 02/13/25 13:30> Clarified Diagnosis Clarified Diagnosis: I agree with diagnosis of Moderate protein calorie malnutrition related to reduced appetite and intake as evidenced by pt report of poor intake for greater than 1 month, a significant weight loss of -10% x 3 months and NFPE findings for moderate subcutaneous fat loss and moderate muscle wasting. <Curry Hurley MD - Last Filed: 02/27/25 12:10>
[2025-02-13 13:39] LABS: Hematocrit 27.9 % (37.0-47.0); Hemoglobin 8.9 g/dL (12.0-15.0)
--- NOTE | 2025-02-13 14:31 | P.DS_ITS ---
DS: Admitting Diagnosis Discharge Date 02/13/25 Admitting Diagnosis Nausea, vomiting, abdominal pain. DS: Discharge Diagnosis Discharge Diagnosis (1) Urinary tract infection: Code(s): N39.0 - Urinary tract infection, site not specified Status: Acute (2) Acute on chronic kidney failure: Code(s): N17.9 - Acute kidney failure, unspecified; N18.9 - Chronic kidney disease, unspecified Status: Acute (3) Dehydration: Code(s): E86.0 - Dehydration Status: Acute (4) Hypokalemia: Code(s): E87.6 - Hypokalemia Status: Acute (5) Hydronephrosis: Code(s): N13.30 - Unspecified hydronephrosis Status: Acute (6) Ileus: Code(s): K56.7 - Ileus, unspecified Status: Acute (7) Chronic anemia: Code(s): D64.9 - Anemia, unspecified Status: Acute (8) Ovarian cancer: Code(s): C56.9 - Malignant neoplasm of unspecified ovary Status: Acute Plan Abd pain and vomiting Presented with abd pain and vomting x 3 days Noted improvement in abd pain CT AP generalized mild dilation of the small bowel presumably due to ileus, early obstruction not excluded Bowel sounds present and no abd pain start clear liquid diet and advance as tolerated Hydronephrosis with right ureteral stent CT AP moderate right pelvictasis and caliectasis, despute the presented of a ureteral stent, which may represent chronic dilation or stent dysfunction with acute hydronephrosis urology consulted, evalauted and noted that patient will follow up with primary urologist on discharge Fistulae potential enteroureteral, enterovesicular and or enterovesicular fistulae, with presumed necrotic, mesenteric lymph node in the right lower quadrant with Gen surgery consulted PRN pain control Anemia Hb 7.5 B12/Folate wnl Isat 21 GI consulted for GI bleed eval Ovarian cancer Patient on treatment, will restart Chemotherapy in 2 weeks Dehydration and Hypokalemia Patient unablt to eat and vomiting x 3 days continue IVF and ZOfran prn K replaced, monitor DVT prophylaxis on SCDs, due to anemia DS: Summary Hospital Course Hospital Course: 70 y/o female with history of ovarian cancer presented with abdominal pain had CT scan of the abdomen which showed: Moderate right pelviectasis and caliectasis, despite the presence of a ureteral stent, may represent chronic dilation or stent dysfunction with acute hydronephrosis. Potential enteroureteral, enterovesicular, and/or enterovesicular fistulae. Presumed necrotic mesenteric lymph node in the right lower quadrant. Generalized mild dilation of the small bowel, presumably due to ileus. Early/partial obstruction not excluded. patient was seen by both urologist service and general surgery and recommended that patient is clinically stable should follow up with her primary surgeon, urologist and oncologist at [facility], patient has informed her oncologist of her admission and clinically stable, will give the patient image CD of the CT scan of her abdomen, patient is clinically stable, will discharge patient today. Time Spent with Patient Time attestation: Total time spent providing and/or coordinating discharge services: Exam Narrative: Patient is comfortable, NAD HEENT: eyes are clear and none icteric LUNGS:CTA HEART: RR S1S2 ABD: BS+, Soft and nontender Lower extremities: no edema SKIN: nonjaundiced Neuro: grossly intact. DS: Data Data Completed and Pending Labs on day of discharge: Labs from last 24 hours 02/13/25 02/13/25 02/13/25 13:24 07:43 07:03 WBC RBC Hgb 8.9 L 6.7 L* Hct 27.9 L 20.6 L* MCV MCH MCHC RDW Plt Count MPV Immature Gran % (Auto) Neut % (Auto) Lymph % (Auto) [place] % (Auto) Eos % (Auto) Baso % (Auto) Lymph # (Auto) [place] # (Auto) Eos # (Auto) Baso # (Auto) Abs Immat Gran (auto) Absolute Neuts (auto) Absolute Nucleated RBC Band Neutrophils % Nucleated RBC % Platelet Estimate Hypochromasia Anisocytosis Schistocytes Sodium Potassium Chloride Carbon Dioxide Anion Gap BUN Creatinine Estim Creat Clear Calc Estimated GFR Glucose Lactic Acid Calcium Magnesium Total Bilirubin AST ALT Alkaline Phosphatase Total Protein Albumin Blood Type O Negative Antibody Screen Negative Crossmatch See Detail 02/13/25 02/13/25 06:00 06:00 WBC 6.0 RBC 1.72 L Hgb 6.0 L* Hct 18.9 L* MCV 109.9 H MCH 34.9 H MCHC 31.7 L RDW 21.4 H Plt Count 162 MPV 11.5 H Immature Gran % (Auto) 0.7 H Neut % (Auto) 82.3 H Lymph % (Auto) 4.8 L [place] % (Auto) 11.5 H Eos % (Auto) 0.5 Baso % (Auto) 0.2 Lymph # (Auto) 0.29 L [place] # (Auto) 0.7 H Eos # (Auto) 0.0 Baso # (Auto) 0.0 Abs Immat Gran (auto) 0.04 H Absolute Neuts (auto) 4.9 Absolute Nucleated RBC 0.000 Band Neutrophils % Not Reportable Nucleated RBC % 0.0 Platelet Estimate Adequate Hypochromasia 1+ Anisocytosis 1+ Schistocytes None seen Sodium 134 L Potassium 3.0 L 2.9 L Chloride 107 Carbon Dioxide 22 Anion Gap 5 BUN 14 D Creatinine 1.15 H Estim Creat Clear Calc 38 Estimated GFR 47 L Glucose 100 Lactic Acid < 0.5 L Calcium 7.7 L Magnesium 1.3 L Total Bilirubin 0.2 AST 18 ALT 10 Alkaline Phosphatase 84 Total Protein 5.0 L Albumin 2.2 L Blood Type Antibody Screen Crossmatch Preliminary micro results at discharge 02/11/25 21:46 Urine Culture Reflexed - Preliminary Urine Clean Catch Klebsiella pneumoniae Discharge Plan Discharge Attending physician on discharge: Michael Rosario Consulting providers: Casey Vargas; Hung Riddle; Maribeth Reardon; Rizwana Hillman; Denis Ramey; Courtney Foley; Lyle Van; Ritesh Pappas Discharging Clinician: Curry Hurley Patient Disposition: Home Activity: as tolerated Diet: heart healthy Discharge Instructions: * follow up with Oncology as scheduled. * * patient to follow up with her oncologist and primary care provider as soon as possible, patient is instructed if any symptoms redevelop to go to nearest ER. Patient Instructions: Antibiotic Form Patient Language: Monegasque Stand Alone Forms: General Discharge Information Follow-up/Referrals: Radha,Ceci Goddard APRN [Primary Care Provider] - Discharge Medications: New cefdinir 300 mg capsule 300 mg PO Q12H Qty: 10 0RF Continued potassium chloride [Klor-Con M20] 20 mEq tablet,ER particles/crystals 20 meq PO BID gabapentin 600 mg tablet 600 mg PO TID ondansetron HCl 8 mg tablet 8 mg PO Q12H PRN (Reason: nausea/vomiting) meloxicam 7.5 mg tablet 7.5 mg PO DAILY esomeprazole magnesium 40 mg capsule,delayed release(DR/EC) 40 mg PO Q24H fluoxetine 40 mg capsule 40 mg PO DAILY pyridoxine (vitamin B6) 100 mg tablet 200 mg PO BID cholecalciferol (vitamin D3) [D3 DOTS] 50 mcg (2,000 unit) tablet 50 mcg PO BID loratadine 10 mg tablet 10 mg PO Q24H Lynparza 100 mg tablet 200 mg PO BID acetaminophen 325 mg Tablet 650 mg PO Q6H PRN (Reason: Mild Pain (1-3) Or Fever) Qty: 30 0RF Date of admission: 02/12/25 10:19 Primary Care Provider: Radha,Ceci Goddard Admitting Provider: Michael Rosario Attending physician on admission: Curry Hurley Condition: Stable
[2025-02-13] MEDS: HEPARIN SODIUM LOCK FLUSH 500 UNITS/5 ML SYRINGE IV PUSH (15:03)
== END 2025-02-13 15:20 | disposition home or self-care (01) | DRG 690 ==
LOC: ANHED 20:26 → ANH3MEDSUR 21:27
PROVIDERS: Emergency Medicine; Internal Medicine; Physician Assistant; Urology; Admitting Provider General Practice; Emergency Provider Emergency Medicine; PCP Nurse Practitioner Family; Visit Provider Family Medicine
DX: N13.6 Pyonephrosis (principal); K56.7 Ileus, unspecified; C56.9 Malignant neoplasm of unspecified ovary; N32.2 Vesical fistula, not elsewhere classified; E44.0 Moderate protein-calorie malnutrition; B96.1 Klebsiella pneumoniae [K. pneumoniae] as the cause of diseases classified elsewhere; N17.9 Acute kidney failure, unspecified; E86.0 Dehydration; E87.6 Hypokalemia; D64.9 Anemia, unspecified; G62.9 Polyneuropathy, unspecified; N18.30 Chronic kidney disease, stage 3 unspecified; K21.9 Gastro-esophageal reflux disease without esophagitis; K58.9 Irritable bowel syndrome, unspecified; M81.0 Age-related osteoporosis without current pathological fracture; Z96.652 Presence of left artificial knee joint; Z85.3 Personal history of malignant neoplasm of breast; Z90.49 Acquired absence of other specified parts of digestive tract; Z90.722 Acquired absence of ovaries, bilateral; Z90.710 Acquired absence of both cervix and uterus; Z87.891 Personal history of nicotine dependence; Z68.23 Body mass index [BMI] 23.0-23.9, adult
CPT/HCPCS: 36415; 36430; 74177; 76775; 80048; 80053; 81001; 82607; 82728; 82746; 83540; 83550; 83605; 83690; 83735; 84132; 85014; 85018; 85025; 85027; 86850; 86900; 86901; 86923; 87086; 87186; 96361; 96367; 96374; 96375; 96376; 99285; A9270; G0378; J0696; J1200; J1642; J1790; J2270; J2405; J2765; J3480; J7030; J7040; J7050; J7120; P9016; Q9967

== ENCOUNTER 2025-07-06 19:46 | Emergency (ER) | payer MEDICARE, OTHER, SELFPAY ==
--- NOTE | ~2025-07-06 | CT_ITS ---
CTA chest PE abdomen pel HISTORY:Syncope, serous peritoneal adenocarcinoma . COMPARISON: None. TECHNIQUE: Following the noncontrasted courtesy clerk, axial images of the thorax were obtained following infusion of 100 cc of Isovue 370. Post-processing on an independent workstation was performed to reconstruct MIP images for evaluation of the thoracic vasculature. FINDINGS: There is no pulmonary embolism, aortic dissection, thoracic aneurysm or pericardial fluid. The lung parenchyma is clear. No pleural effusion or pneumothorax is noted. There is no axillary, mediastinal or hilar adenopathy. Limited evaluation of the upper abdomen demonstrates no gross abnormalities. Review of bone windows demonstrates no osteoblastic or lytic lesions. IMPRESSION: There is no pulmonary embolism, aortic dissection, pericardial fluid or thoracic aneurysm. No acute lung findings. CTA chest PE abdomen pel INDICATION:Syncope, serous peritoneal adenocarcinoma . COMPARISON: None. TECHNIQUE: Axial images of the abdomen and pelvis were obtained following infusion of 100 mL Isovue 370. Dose optimization technique was utilized. FINDINGS: The lung bases are clear. The liver parenchyma is unremarkable. No intrahepatic mass or ductal dilatation is evident. The patient has had a cholecystectomy. The pancreas and spleen are normal in appearance. The adrenal glands are symmetric in size. There is moderate right hydronephrosis. There is a double-J ureteral stent within the right urinary collecting system. Left kidney is unremarkable. Kidneys enhance symmetrically. No cystic mass is evident. There is no solid mass. There is no hydronephrosis. Evaluation of the stomach and bowel loops are limited due to lack of oral contrast. The appendix is not visualized however no secondary signs of appendicitis are identified. The bladder and rectum are normal. No free intraperitoneal fluid or air is evident. There is no significant retroperitoneal lymphadenopathy. The aorta, visceral vessels and renal arteries demonstrate normal caliber and patency. Chronic-appearing fracture of the left pubic rami and left acetabulum. IMPRESSION: Moderate right hydronephrosis. There is a double-J ureteral stent in the right renal collecting system. Left acetabulum and pubic rami fracture. All CT scans at this facility are performed using low dose modulation techniques as appropriate to perform exam including the following: automated exposure control; use of iterative reconstruction technique; adjustment of the mA and/or kV according to patient size (this includes techniques or standardized protocols for targeted exams where dose is matched to indication/reason for exam). Reviewed, dictated and finalized at location S. IMPRESSION: There is no pulmonary embolism, aortic dissection, pericardial fluid or thoraci c aneurysm. No acute lung findings. CTA chest PE abdomen pel INDICATION:Syncope, serous peritoneal adenocarcinoma . COMPARISON: None. TECHNIQUE: Axial images of the abdomen and pelvis were obtained following infu salima of 100 mL Isovue 370. Dose optimization technique was utilized. FINDINGS: The lung bases are clear. The liver parenchyma is unremarkable. No intrahepatic mass or ductal dilatation is evident. The patient has had a cholecystectomy. The pancreas and spleen are normal in appearance. The adrenal glands are symmetric in size. There is moderate right hydronephrosis. There is a double-J ureteral stent with in the right urinary collecting system. Left kidney is unremarkable. Kidneys en meme symmetrically. No cystic mass is evident. There is no solid mass. There i s no hydronephrosis. Evaluation of the stomach and bowel loops are limited due to lack of oral contr ast. The appendix is not visualized however no secondary signs of appendicitis are identified. The bladder and rectum are normal. No free intraperitoneal fluid or air is evid ent. There is no significant retroperitoneal lymphadenopathy. The aorta, visceral vessels and renal arteries demonstrate normal caliber and p atency. Chronic-appearing fracture of the left pubic rami and left acetabulum. IMPRESSION: Moderate right hydronephrosis. There is a double-J ureteral stent in the right renal collecting system. Left acetabulum and pubic rami fracture. All CT scans at this facility are performed using low dose modulation techniqu es as appropriate to perform exam including the following: automated exposure c ontrol; use of iterative reconstruction technique; adjustment of the mA and/or kV according to patient size (this includes techniques or standardized protocol s for targeted exams where dose is matched to indication/reason for exam).
--- NOTE | ~2025-07-06 | XR_ITS ---
XR chest 1V portable INDICATION:Syncope . REFERENCE: None FINDINGS: A single AP of the chest demonstrates normal heart size. Right Port-A-Cath is in place. The lungs are clear. There is no evidence of pneumothorax or pleural effusion. Chronic fracture deformity of the right humeral head and neck is noted. IMPRESSION: No acute pulmonary findings. Reviewed, dictated and finalized at location S.
--- NOTE | ~2025-07-06 | CT_ITS ---
CT brain wo con HISTORY:syncope COMPARISON: None. TECHNIQUE: Axial images were obtained of the head without intravenous contrast. FINDINGS: No acute intracranial hemorrhage, mass effect or midline shift. No extra-axial fluid collections. The calvarium is intact. Visualized paranasal sinuses and mastoid air cells are clear. IMPRESSION: No acute intracranial hemorrhage or extra axial fluid collections. All CT scans at this facility are performed using low dose modulation techniques as appropriate to perform exam including the following: automated exposure control; use of iterative reconstruction technique; adjustment of the mA and/or kV according to patient size (this includes techniques or standardized protocols for targeted exams where dose is matched to indication/reason for exam). Reviewed, dictated and finalized at location S. IMPRESSION: No acute intracranial hemorrhage or extra axial fluid collections. All CT scans at this facility are performed using low dose modulation techniqu es as appropriate to perform exam including the following: automated exposure c ontrol; use of iterative reconstruction technique; adjustment of the mA and/or kV according to patient size (this includes techniques or standardized protocol s for targeted exams where dose is matched to indication/reason for exam).
[2025-07-06 19:43] VITALS: BP 120/66; PULSE 74; RESP 20; TEMP 36.7; O2SAT 100
--- NOTE | 2025-07-06 19:47 | ECG_ITS ---
Test Date: 2025-07-06 19:46:29 Measurements Intervals [place] Rate: 70 P: -15 AR: 144 QRS: 32 QRSD: 98 T: 44 QT: 421 QTc: 457 Interpretive Statements SINUS RHYTHM BASELINE ARTIFACT- II, III, AVR, AVL, AVF, V1-V6 NORMAL ECG Compared to ECG 07/19/2024 16:51:24 HEART RATE HAS DECREASED Electronically Signed On 07-06-2025 21:06:04 CDT by Mckay Felder D.O.
[2025-07-06 19:53] VITALS: PULSE 80
[2025-07-06 19:54] VITALS: BP 120/66; PULSE 75; RESP 19; O2SAT 100
[2025-07-06] MEDS: SODIUM CHLORIDE 0.9% IV 1,000 ML 999 ML IV CONT ×2 (20:19→22:42)
--- NOTE | 2025-07-06 20:39 | PC.NURSE ---
DEMARCO and Alirio multiple blood draw attempts unsuccessful. Phlebotomy called
[2025-07-06 21:11] LABS: Influenza A QL RT-PCR Negative (Negative); Influenza B QL RT-PCR Negative (Negative); RSV RNA, RT-PCR Negative (Negative); SARS-CoV-2 RNA PCR Negative (Negative)
[2025-07-06 21:11] LABS: Hematocrit 28.2 % (37.0-47.0); Hemoglobin 8.6 g/dL (12.0-15.0); Immature Granulocyte Percent A 0.3 % (0-0.5); Lymphocytes Absolute Auto 0.71 K/mm3 (0.9-3.2); Mean Corpuscular HGB Conc 30.5 g/dl (32-36); Mean Corpuscular Hemoglobin 34.1 pg (26-34); Mean Corpuscular Volume 111.9 fl (80-100); Nucleated Red Blood Cells Absolute Auto 0.000 K/mm3 (0.0-0.012); Nucleated Red Blood Cells Perc 0.0 % (0.0-0.2); Platelet Count Result 168 k/mm3 (150-375); Red Blood Count 2.52 M/mm3 (4.2-5.4); White Blood Count 7.7 K/mm3 (4.5-10.0)
--- NOTE | 2025-07-06 21:14 | ED.GENADULT ---
HPI - General Adult General Chief complaint: Syncope <Charan Alvarenga MD - Last Filed: 07/17/25 19:11> Stated complaint: near syncope <Charan Alvarenga MD - Last Filed: 07/17/25 19:11> History of Present Illness HPI narrative: This is a 70-year-old female presenting for a presyncopal event. She was at dinner and cracked marrow with her friends and family when she started to feel very flushed. She then put her head on down on the table for several minutes the family became concerned and called EMS. When EMS arrived her blood pressure was 80/50. Symptoms have since resolved. The event was not associated with palpitations, chest pain, shortness of breath, visual changes. No recent illness. No nausea vomiting or diarrhea. Patient recently had a stent placed due to hydronephrosis from tumor compression of her ureter. Since then she has developed a UTI has been treated with amoxicillin her UTI symptoms have resolved. 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 She also has significant malnutrition poor oral intake. Patient is now resting comfortably bed with no complaints. <Charan Alvarenga MD - Last Filed: 07/17/25 19:11> Related Data Home medications: Home Medications ?Medication ?Instructions ?Recorded ?Confirmed ?Last Taken ?Type potassium chloride 20 mEq 20 meq PO BID 09/11/23 04/10/25 Unknown History tablet,extended release(part/cryst) (Klor-Con M) gabapentin 600 mg tablet 600 mg PO BID 07/16/24 04/10/25 Unknown History meloxicam 7.5 mg tablet 7.5 mg PO DAILY 07/16/24 04/10/25 Unknown History ondansetron HCl 8 mg tablet 8 mg PO Q8H PRN nausea and vomiting 07/16/24 04/10/25 Unknown History esomeprazole magnesium 40 mg 40 mg PO Q24H 02/11/25 04/10/25 Unknown History capsule,delayed release loratadine 10 mg tablet 10 mg PO Q24H PRN allergy symptoms 02/11/25 04/10/25 Unknown History pyridoxine (vitamin B6) 100 mg 250 mg PO .COMPLEX 02/11/25 04/10/25 Unknown History tablet cyanocobalamin (vitamin B-12) 6,000 mcg PO DAILY 04/10/25 04/10/25 Unknown History 1,000 mcg tablet famotidine 20 mg tablet 20 mg PO BID 04/10/25 04/10/25 Unknown History ferrous sulfate 325 mg (65 mg 325 mg PO DAILY 04/10/25 04/10/25 Unknown History iron) tablet (Feosol) fluoxetine 60 mg tablet 60 mg PO DAILY 04/10/25 04/10/25 Unknown History fluticasone propionate 50 1 spray intranasal PRN PRN rhinitis 04/10/25 04/10/25 Unknown History mcg/actuation nasal spray,suspension lidocaine-prilocaine 2.5 %-2.5 % 1 applic topical PRN PRN pain 04/10/25 04/10/25 Unknown History topical cream lorazepam 0.5 mg tablet (Ativan) 0.5 mg PO Q6H PRN nausea and 04/10/25 04/10/25 Unknown History vomiting oxycodone 5 mg tablet 5 mg PO Q4H PRN pain 04/10/25 04/10/25 Unknown History polyethylene glycol 3350 17 gram 17 g PO DAILY PRN constipation 04/10/25 04/10/25 Unknown History oral powder packet risedronate 35 mg tablet (Actonel) 35 mg PO ONCE 04/10/25 04/10/25 Unknown History triamcinolone acetonide 0.1 % 1 applic topical BID 04/10/25 04/10/25 Unknown History topical cream <Charan Alvarenga MD - Last Filed: 07/17/25 19:11> Allergies/adverse reactions: Allergies Allergy/AdvReac Type Severity Reaction Status Date / Time coconut Allergy Severe Anaphylaxis Verified 02/11/25 16:14 adhesive tape Allergy Unknown Other Verified 02/11/25 16:14 celecoxib (From Celebrex) AdvReac Rash Verified 02/11/25 16:14 <Charan Alvarenga MD - Last Filed: 07/17/25 19:11> FOR[facility]LY [facility] Past Medical History Medical History: Medical History (Updated 07/17/25 @ 19:18 by Cirilo Del Valle DO) Ureteral fistula Recurrent carcinoma of ovary Nausea and vomiting in adult Hydronephrosis Chronic kidney disease, stage 3 Gastroesophageal reflux disease Breast cancer Depression Anxiety Irritable bowel syndrome Chronic anemia Peripheral neuropathy due to chemotherapy Osteoporosis Ovarian cancer Approximately 2019 with recurrence in 2021 <Charan Alvarenga MD - Last Filed: 07/17/25 19:11> Surgical History Surgical History: Surgical History History of colon resection Reports having a partial colectomy at the time of her total abdominal hysterectomy in 2019 at [place] due to her ovarian cancer involving the colon. CT scan of the abdomen/pelvis shows a rectal and cecal anastomosis. History of cholecystectomy History of right mastectomy History of total abdominal hysterectomy and bilateral salpingo-oophorectomy History of left knee replacement (2022) <Charan Alvarenga MD - Last Filed: 07/17/25 19:11> Family History Family History: Family History Mother Family history of malignant neoplasm of breast in first degree relative Father Family history of lung disease Daughter Breast cancer <Charan Alvarenga MD - Last Filed: 07/17/25 19:11> Social History Social History: Social History (Updated 04/10/25 @ 17:42 by Honey Nguyen RN) Social History: She lives with her of 32 years. 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 She has 2 daughters and a son. Her youngest daughter was just diagnosed with breast cancer. She used to smoke up to a pack of cigarettes per day but then would not smoke for up to a week after that. She did this for proximally 30 years but quit smoking in the . She denies any history of heavy alcohol use or illicit substance use. She ambulates with a Rollator. Code status: Full code Surrogate decision maker: Smoking packs per day: 0.5 Smoking cigarettes per day: 10.0 Years smoked: 5 Smoking pack-years: 2.50 Smoking status: Former smoker Alcohol intake: never Substance use: never Substance use type: does not use Do You Feel Safe in your Home?: Yes Lack of Transportation: No Lack of Food: Never True Current Housing: I Have Housing Concerned About Future Housing: No Difficulty Paying Gas/Electric Bills: No Difficulty Paying for Meds: No Currently Unemployed: No Education: High School Diploma/GED Difficulty w/ Childcare or Family Care: No Gender identity (if verbalized by the patient): Male Sexual Orientation (if Verbalized by the Patient): Straight or Heterosexual Spiritual care concerns: No Agree to blood products: Yes <Charan Alvarenga MD - Last Filed: 07/17/25 19:11> Exam Narrative: APPEARANCE: No apparent distress. Frail-appearing Head: atraumatic. EYES: EOMI, NOSE: Atraumatic NECK: Trachea midline RESPIRATORY: No increased rate of breathing clear to auscultation CARDIOVASCULAR: RRR, no peripheral edema ABDOMINAL: Non-distended soft nontender MUSCULOSKELETAl: No obvious deformities NEURO: Alert. Moving 4/4 extremities SKIN:: Warm, dry. Normal color PSYCHIATRIC: Normal affect <Charan Alvarenga MD - Last Filed: 07/17/25 19:11> Course Vital Signs Vital signs: Vital Signs Temperature 98.1 F 07/06/25 19:43 Pulse Rate 74 07/06/25 19:43 Respiratory Rate 20 07/06/25 19:43 Blood Pressure 120/66 07/06/25 19:43 Pulse Oximetry 100 07/06/25 19:43 Oxygen Delivery Room Air 07/06/25 19:43 Temperature 98.1 F 07/06/25 19:43 Pulse Rate 85 07/07/25 00:49 Respiratory Rate 20 07/07/25 00:49 Blood Pressure 121/67 07/07/25 00:49 Pulse Oximetry 100 07/07/25 00:49 Oxygen Delivery Room Air 07/06/25 19:43 <Charan Alvarenga MD - Last Filed: 07/17/25 19:11> Vital Signs Temperature 98.1 F 07/06/25 19:43 Pulse Rate 74 07/06/25 19:43 Respiratory Rate 20 07/06/25 19:43 Blood Pressure 120/66 07/06/25 19:43 Pulse Oximetry 100 07/06/25 19:43 Oxygen Delivery Room Air 07/06/25 19:43 Temperature 98.1 F 07/06/25 19:43 Pulse Rate 85 07/07/25 00:49 Respiratory Rate 20 07/07/25 00:49 Blood Pressure 121/67 07/07/25 00:49 Pulse Oximetry 100 07/07/25 00:49 Oxygen Delivery Room Air 07/06/25 19:43 <Cirilo Del Valle DO - Last Filed: 07/17/25 19:18> Medical Decision Making MDM Narrative Medical decision making narrative: -Course: 70-year-old female with history of metastatic peritoneal adenocarcinoma presenting with presyncopal event while at a restaurant. On arrival here patient's for ill-appearing but does not have any significant complaints. Given her history of cancer broader workup has been obtained. Patient given 1 L of LR. Signed out to the oncoming physician pending completion of her workup. <Charan Alvarenga MD - Last Filed: 07/17/25 19:11> -Course: 70-year-old female with history of metastatic peritoneal adenocarcinoma presenting with presyncopal event while at a restaurant. On arrival here patient's for ill-appearing but does not have any significant complaints. Given her history of cancer broader workup has been obtained. Patient given 1 L of LR. Signed out to the oncoming physician pending completion of her workup. Patient signed out to me pending labs and CT. Hemoglobin 8.6 which is stable for her. Normal white count. She had a slight CARMELA with creatinine at 1.32 and was given fluids for this. Lactic acid within normal limits. BNP elevated at 959. CTA chest/abdomen/pelvis showed moderate right hydronephrosis with a double-J ureteral stent in the right collecting system, no evidence of PEs. Who were noted left acetabular and pubic rami fractures. I discussed this with the family and they did note that these were old fractures found on outside facility. CT head showed no acute process. On further discussion with the family, they do feel safe with taking care of the patient at home. They will follow up patient's oncologist within the next week. Patient and family were agreeable to this plan. Given strict return precautions. <Cirilo Del Valle DO - Last Filed: 07/17/25 19:18> Medical Records Medical records reviewed: Yes I reviewed the external patient's medical records. <Cirilo Del Valle DO - Last Filed: 07/17/25 19:18> Vital Signs Vital Signs: Vital Signs Temperature 98.1 F 07/06/25 19:43 Pulse Rate 74 07/06/25 19:43 Respiratory Rate 20 07/06/25 19:43 Blood Pressure 120/66 07/06/25 19:43 Pulse Oximetry 100 10/24/25 19:43 Oxygen Delivery Room Air 07/06/25 19:43 Temperature 98.1 F 07/06/25 19:43 Pulse Rate 85 07/07/25 00:49 Respiratory Rate 20 07/07/25 00:49 Blood Pressure 121/67 07/07/25 00:49 Pulse Oximetry 100 07/07/25 00:49 Oxygen Delivery Room Air 07/06/25 19:43 <Charan Alvarenga MD - Last Filed: 07/17/25 19:11> Vital Signs Temperature 98.1 F 07/06/25 19:43 Pulse Rate 74 07/06/25 19:43 Respiratory Rate 20 07/06/25 19:43 Blood Pressure 120/66 07/06/25 19:43 Pulse Oximetry 100 07/06/25 19:43 Oxygen Delivery Room Air 07/06/25 19:43 Temperature 98.1 F 07/06/25 19:43 Pulse Rate 85 07/07/25 00:49 Respiratory Rate 20 07/07/25 00:49 Blood Pressure 121/67 07/07/25 00:49 Pulse Oximetry 100 07/07/25 00:49 Oxygen Delivery Room Air 07/06/25 19:43 <Cirilo Del Valle DO - Last Filed: 07/17/25 19:18> Lab Data Lab results reviewed: Yes I reviewed the patient's lab results. <Cirilo Del Valle DO - Last Filed: 07/17/25 19:18> Result diagrams: 07/06/25 21:05 07/06/25 21:05 <Charan Alvarenga MD - Last Filed: 07/17/25 19:11> Labs: Lab Results 07/06/25 07/06/25 07/06/25 Range/Units 20:31 20:55 21:05 WBC 7.7 (4.5-10.0) K/mm3 RBC 2.52 L (4.2-5.4) M/mm3 Hgb 8.6 L (12.0-15.0) g/dL Hct 28.2 L (37.0-47.0) % MCV 111.9 H (80-100) fl MCH 34.1 H (26-34) pg MCHC 30.5 L (32-36) g/dl RDW 13.5 (11.5-14.5) % Plt Count 168 D (150-375) k/mm3 MPV 10.0 (7.4-10.4) fl Immature Gran % (Auto) 0.3 (0-0.5) % Neut % (Auto) 77.8 H (45.5-73.1) % Lymph % (Auto) 9.3 L (18.3-44.2) % [place] % (Auto) 9.3 H (2.6-8.5) % Eos % (Auto) 3.0 (0-4.4) % Baso % (Auto) 0.3 (0.2-1.2) % Lymph # (Auto) 0.71 L (0.9-3.2) K/mm3 [place] # (Auto) 0.7 H (0.1-0.6) K/mm3 Eos # (Auto) 0.2 (0-0.3) K/mm3 Baso # (Auto) 0.0 (0.0-0.1) K/mm3 Abs Immat Gran (auto) 0.02 (0.00-0.031) K/mm3 Absolute Neuts (auto) 6.0 (1.3-6.7) K/mm3 Absolute Nucleated RBC 0.000 (0.0-0.012) K/mm3 Band Neutrophils % Not Reportable Nucleated RBC % 0.0 (0.0-0.2) % Platelet Estimate Adequate (Adequate) Macrocytosis 1+ (NORMAL) Suzan Cells 1+ Schistocytes Not Reportable PT (11.1-14.7) Seconds INR APTT (22.3-36.8) Seconds Sodium 132 L (137-145) mmol/L Potassium 3.9 (3.4-5.0) mmol/L Chloride 104 (98-107) mmol/L Carbon Dioxide 19 L (22-30) mmol/L Anion Gap 9 (4-12) mmol/L BUN 11 (7-17) mg/dL Creatinine 1.32 H (0.7-1.0) mg/dL Estim Creat Clear Calc 34 ml/min Estimated GFR 40 L (59 - ) Glucose 126 H (65-110) mg/dL Lactic Acid (0.7-2.0) mmol/L Calcium 8.6 (8.4-10.2) mg/dL Total Bilirubin 0.3 (0.2-1.3) mg/dL AST 22 (14-36) U/L ALT 14 (6-35) U/L Alkaline Phosphatase 98 (38-126) U/L Troponin I < 0.012 (0.000-0.034) ng/mL NT-Pro-B Natriuret Pep 959 H (19.9-100) pg/mL Total Protein 5.6 L (6.3-8.2) g/dL Albumin 2.9 L (3.5-5.1) g/dL Lipase 57 (23-300) U/L Influenza A (RT-PCR) Negative (Negative) Influenza B (RT-PCR) Negative (Negative) RSV (RT-PCR) Negative (Negative) SARS-CoV-2 RNA (RT-PCR) Negative (Negative) 07/06/25 Range/Units 22:27 WBC (4.5-10.0) K/mm3 RBC (4.2-5.4) M/mm3 Hgb (12.0-15.0) g/dL Hct (37.0-47.0) % MCV (80-100) fl MCH (26-34) pg MCHC (32-36) g/dl RDW (11.5-14.5) % Plt Count (150-375) k/mm3 MPV (7.4-10.4) fl Immature Gran % (Auto) (0-0.5) % Neut % (Auto) (45.5-73.1) % Lymph % (Auto) (18.3-44.2) % [place] % (Auto) (2.6-8.5) % Eos % (Auto) (0-4.4) % Baso % (Auto) (0.2-1.2) % Lymph # (Auto) (0.9-3.2) K/mm3 [place] # (Auto) (0.1-0.6) K/mm3 Eos # (Auto) (0-0.3) K/mm3 Baso # (Auto) (0.0-0.1) K/mm3 Abs Immat Gran (auto) (0.00-0.031) K/mm3 Absolute Neuts (auto) (1.3-6.7) K/mm3 Absolute Nucleated RBC (0.0-0.012) K/mm3 Band Neutrophils % Nucleated RBC % (0.0-0.2) % Platelet Estimate (Adequate) Macrocytosis (NORMAL) Mcgrady Cells Schistocytes PT 13.4 (11.1-14.7) Seconds INR 1.0 APTT 24.8 (22.3-36.8) Seconds Sodium (137-145) mmol/L Potassium (3.4-5.0) mmol/L Chloride (98-107) mmol/L Carbon Dioxide (22-30) mmol/L Anion Gap (4-12) mmol/L BUN (7-17) mg/dL Creatinine (0.7-1.0) mg/dL Estim Creat Clear Calc ml/min Estimated GFR (59 - ) Glucose (65-110) mg/dL Lactic Acid 1.7 (0.7-2.0) mmol/L Calcium (8.4-10.2) mg/dL Total Bilirubin (0.2-1.3) mg/dL AST (14-36) U/L ALT (6-35) U/L Alkaline Phosphatase (38-126) U/L Troponin I (0.000-0.034) ng/mL NT-Pro-B Natriuret Pep (19.9-100) pg/mL Total Protein (6.3-8.2) g/dL Albumin (3.5-5.1) g/dL Lipase (23-300) U/L Influenza A (RT-PCR) (Negative) Influenza B (RT-PCR) (Negative) RSV (RT-PCR) (Negative) SARS-CoV-2 RNA (RT-PCR) (Negative) <Charan Alvarenga MD - Last Filed: 07/17/25 19:11> Lab Results 07/06/25 07/06/25 07/06/25 Range/Units 20:31 20:55 21:05 WBC 7.7 (4.5-10.0) K/mm3 RBC 2.52 L (4.2-5.4) M/mm3 Hgb 8.6 L (12.0-15.0) g/dL Hct 28.2 L (37.0-47.0) % MCV 111.9 H (80-100) fl MCH 34.1 H (26-34) pg MCHC 30.5 L (32-36) g/dl RDW 13.5 (11.5-14.5) % Plt Count 168 D (150-375) k/mm3 MPV 10.0 (7.4-10.4) fl Immature Gran % (Auto) 0.3 (0-0.5) % Neut % (Auto) 77.8 H (45.5-73.1) % Lymph % (Auto) 9.3 L (18.3-44.2) % [place] % (Auto) 9.3 H (2.6-8.5) % Eos % (Auto) 3.0 (0-4.4) % Baso % (Auto) 0.3 (0.2-1.2) % Lymph # (Auto) 0.71 L (0.9-3.2) K/mm3 [place] # (Auto) 0.7 H (0.1-0.6) K/mm3 Eos # (Auto) 0.2 (0-0.3) K/mm3 Baso # (Auto) 0.0 (0.0-0.1) K/mm3 Abs Immat Gran (auto) 0.02 (0.00-0.031) K/mm3 Absolute Neuts (auto) 6.0 (1.3-6.7) K/mm3 Absolute Nucleated RBC 0.000 (0.0-0.012) K/mm3 Band Neutrophils % Not Reportable Nucleated RBC % 0.0 (0.0-0.2) % Platelet Estimate Adequate (Adequate) Macrocytosis 1+ (NORMAL) Suzan Cells 1+ Schistocytes Not Reportable PT (11.1-14.7) Seconds INR APTT (22.3-36.8) Seconds Sodium 132 L (137-145) mmol/L Potassium 3.9 (3.4-5.0) mmol/L Chloride 104 (98-107) mmol/L Carbon Dioxide 19 L (22-30) mmol/L Anion Gap 9 (4-12) mmol/L BUN 11 (7-17) mg/dL Creatinine 1.32 H (0.7-1.0) mg/dL Estim Creat Clear Calc 34 ml/min Estimated GFR 40 L (59 - ) Glucose 126 H (65-110) mg/dL Lactic Acid (0.7-2.0) mmol/L Calcium 8.6 (8.4-10.2) mg/dL Total Bilirubin 0.3 (0.2-1.3) mg/dL AST 22 (14-36) U/L ALT 14 (6-35) U/L Alkaline Phosphatase 98 (38-126) U/L Troponin I < 0.012 (0.000-0.034) ng/mL NT-Pro-B Natriuret Pep 959 H (19.9-100) pg/mL Total Protein 5.6 L (6.3-8.2) g/dL Albumin 2.9 L (3.5-5.1) g/dL Lipase 57 (23-300) U/L Influenza A (RT-PCR) Negative (Negative) Influenza B (RT-PCR) Negative (Negative) RSV (RT-PCR) Negative (Negative) SARS-CoV-2 RNA (RT-PCR) Negative (Negative) 07/06/25 Range/Units 22:27 WBC (4.5-10.0) K/mm3 RBC (4.2-5.4) M/mm3 Hgb (12.0-15.0) g/dL Hct (37.0-47.0) % MCV (80-100) fl MCH (26-34) pg MCHC (32-36) g/dl RDW (11.5-14.5) % Plt Count (150-375) k/mm3 MPV (7.4-10.4) fl Immature Gran % (Auto) (0-0.5) % Neut % (Auto) (45.5-73.1) % Lymph % (Auto) (18.3-44.2) % [place] % (Auto) (2.6-8.5) % Eos % (Auto) (0-4.4) % Baso % (Auto) (0.2-1.2) % Lymph # (Auto) (0.9-3.2) K/mm3 [place] # (Auto) (0.1-0.6) K/mm3 Eos # (Auto) (0-0.3) K/mm3 Baso # (Auto) (0.0-0.1) K/mm3 Abs Immat Gran (auto) (0.00-0.031) K/mm3 Absolute Neuts (auto) (1.3-6.7) K/mm3 Absolute Nucleated RBC (0.0-0.012) K/mm3 Band Neutrophils % Nucleated RBC % (0.0-0.2) % Platelet Estimate (Adequate) Macrocytosis (NORMAL) Suzan Cells Schistocytes PT 13.4 (11.1-14.7) Seconds INR 1.0 APTT 24.8 (22.3-36.8) Seconds Sodium (137-145) mmol/L Potassium (3.4-5.0) mmol/L Chloride (98-107) mmol/L Carbon Dioxide (22-30) mmol/L Anion Gap (4-12) mmol/L BUN (7-17) mg/dL Creatinine (0.7-1.0) mg/dL Estim Creat Clear Calc ml/min Estimated GFR (59 - ) Glucose (65-110) mg/dL Lactic Acid 1.7 (0.7-2.0) mmol/L Calcium (8.4-10.2) mg/dL Total Bilirubin (0.2-1.3) mg/dL AST (14-36) U/L ALT (6-35) U/L Alkaline Phosphatase (38-126) U/L Troponin I (0.000-0.034) ng/mL NT-Pro-B Natriuret Pep (19.9-100) pg/mL Total Protein (6.3-8.2) g/dL Albumin (3.5-5.1) g/dL Lipase (23-300) U/L Influenza A (RT-PCR) (Negative) Influenza B (RT-PCR) (Negative) RSV (RT-PCR) (Negative) SARS-CoV-2 RNA (RT-PCR) (Negative) <Cirilo Del Valle DO - Last Filed: 07/17/25 19:18> Imaging Data Attestation: I personally reviewed and interpreted this imaging study as follows: <Cirilo Del Valle DO - Last Filed: 07/17/25 19:18> Radiologist's impression: CTA chest IMPRESSION: There is no pulmonary embolism, aortic dissection, pericardial fluid or thoracic aneurysm. No acute lung findings. CTA abdomen/pelvis IMPRESSION: Moderate right hydronephrosis. There is a double-J ureteral stent in the right renal collecting system. Left acetabulum and pubic rami fracture. CT Head IMPRESSION: No acute intracranial hemorrhage or extra axial fluid collections. <Cirilo Lópezmaureentex - Last Filed: 07/17/25 19:18> ECG Data EKG #1: Attestation: I personally reviewed and interpreted this ECG as follows: <Cirilo Del Valle - Last Filed: 07/17/25 19:18> ECG completion date: 07/06/25 <Cirilo Del Valle - Last Filed: 07/17/25 19:18> ECG completion time: 19:46 <Cirilo Lópezmaureentex - Last Filed: 07/17/25 19:18> Interpretation: Significant artifact, Normal sinus rhythm, normal axis, normal intervals, no acute ST or T-wave changes <Cirilo Lópezmaureentex - Last Filed: 07/17/25 19:18> Discharge Plan Discharge Clinical Impression: Syncope Qualifiers: Syncope type: unspecified Qualified Code(s): R55 - Syncope and collapse <Charan Alvarenga MD - Last Filed: 07/17/25 19:11> Patient Disposition: Home <Charan Alvarenga MD - Last Filed: 07/17/25 19:11> Condition: Stable <Charan Alvarenga MD - Last Filed: 07/17/25 19:11> Instructions: Antibiotic Form <Charan Alvarenga MD - Last Filed: 07/17/25 19:11> Additional Instructions: Follow-up with your oncologist as scheduled. Continue to drink plenty of fluids. Return to the ED for any new or worsening symptoms. <Charan Alvarenga MD - Last Filed: 07/17/25 19:11> Patient Language: Yakut <Charan Alvarenga MD - Last Filed: 07/17/25 19:11> Prescriptions: No Action potassium chloride [Klor-Con M20] 20 mEq tablet,ER particles/crystals 20 meq PO BID gabapentin 600 mg tablet 600 mg PO BID ondansetron HCl 8 mg tablet 8 mg PO Q8H PRN (Reason: nausea and vomiting) meloxicam 7.5 mg tablet 7.5 mg PO DAILY esomeprazole magnesium 40 mg capsule,delayed release(DR/EC) 40 mg PO Q24H pyridoxine (vitamin B6) 100 mg tablet 250 mg PO .COMPLEX Rx Instructions: 250 mg orally; loratadine 10 mg tablet 10 mg PO Q24H PRN (Reason: allergy symptoms) famotidine 20 mg tablet 20 mg PO BID ferrous sulfate [Feosol] 325 mg (65 mg iron) tablet 325 mg PO DAILY fluoxetine 60 mg tablet 60 mg PO DAILY fluticasone propionate 50 mcg/actuation spray,suspension 1 spray INTRANASAL PRN PRN (Reason: rhinitis) lidocaine-prilocaine 2.5-2.5 % cream 1 applic topical PRN PRN (Reason: pain) Rx Instructions: Apply 1 hour prior to IV access and cover. lorazepam [Ativan] 0.5 mg tablet 0.5 mg PO Q6H PRN (Reason: nausea and vomiting) oxycodone 5 mg tablet 5 mg PO Q4H PRN (Reason: pain) polyethylene glycol 3350 17 gram powder in packet 17 g PO DAILY PRN (Reason: constipation) triamcinolone acetonide 0.1 % cream 1 applic topical BID cyanocobalamin (vitamin B-12) 1,000 mcg tablet 6,000 mcg PO DAILY risedronate [Actonel] 35 mg tablet 35 mg PO ONCE Rx Instructions: administer at least 30 minutes before the first food or drink of the day other than water. <Charan Alvarenga MD - Last Filed: 07/17/25 19:11> Follow-up/Referrals: Radha,Ceci Goddard, LADLE PULLER [Primary Care Provider, Family Practice] <Charan Alvarenga MD - Last Filed: 07/17/25 19:11>
[2025-07-06 21:22] LABS: Alanine Aminotransferase 14 U/L (6-35); Albumin Level 2.9 g/dL (3.5-5.1); Alkaline Phosphatase 98 U/L (38-126); Anion Gap 9 mmol/L (4-12); Aspartate Amino Transferase 22 U/L (14-36); Bilirubin,Total 0.3 mg/dL (0.2-1.3); Blood Urea Nitrogen 11 mg/dL (7-17); Calcium 8.6 mg/dL (8.4-10.2); Carbon Dioxide 19 mmol/L (22-30); Chloride 104 mmol/L (98-107); Estimated CRCL calculation 34 ml/min; Estimated Glomerular Filt Rate 40; Glucose 126 mg/dL (65-110); Potassium 3.9 mmol/L (3.4-5.0); Sodium 132 mmol/L (137-145); Total Protein 5.6 g/dL (6.3-8.2)
[2025-07-06 21:35] LABS: Macrocytosis 1+ (NORMAL)
[2025-07-06 21:36] LABS: Burr Cells 1+
[2025-07-06 21:53] LABS: Lipase 57 U/L (23-300)
[2025-07-06 22:06] LABS: NT Pro B Type Natriuretic Pept 959 pg/mL (19.9-100); Troponin I < 0.012 ng/mL (0.000-0.034)
[2025-07-06 22:36] VITALS: BP 115/63; PULSE 80; RESP 17; O2SAT 99
[2025-07-06 22:45] LABS: INR 1.0; Prothrombin Time 13.4 Seconds (11.1-14.7)
[2025-07-06 22:46] LABS: Partial Thromboplastin Time 24.8 Seconds (22.3-36.8)
[2025-07-07 00:46] VITALS: BP 121/67; PULSE 85; RESP 20; O2SAT 100
[2025-07-07 00:49] VITALS: BP 121/67; PULSE 85; RESP 20; O2SAT 100
== END 2025-07-07 00:51 | disposition home or self-care (01) ==
PROVIDERS: Emergency Provider Emergency Medicine; PCP Nurse Practitioner Family
DX: R55 Syncope and collapse (principal); Z20.822 Contact with and (suspected) exposure to COVID-19; C78.6 Secondary malignant neoplasm of retroperitoneum and peritoneum; N18.30 Chronic kidney disease, stage 3 unspecified; D64.9 Anemia, unspecified; K21.9 Gastro-esophageal reflux disease without esophagitis; K58.9 Irritable bowel syndrome, unspecified; M81.0 Age-related osteoporosis without current pathological fracture; F41.9 Anxiety disorder, unspecified; F32.A Depression, unspecified; Z96.0 Presence of urogenital implants; Z96.652 Presence of left artificial knee joint; Z85.3 Personal history of malignant neoplasm of breast; Z85.43 Personal history of malignant neoplasm of ovary; Z92.21 Personal history of antineoplastic chemotherapy; Z87.891 Personal history of nicotine dependence; Z90.11 Acquired absence of right breast and nipple; Z90.710 Acquired absence of both cervix and uterus; Z90.49 Acquired absence of other specified parts of digestive tract; Z90.79 Acquired absence of other genital organ(s); Z90.722 Acquired absence of ovaries, bilateral; Z79.899 Other long term (current) drug therapy
CPT/HCPCS: 36415; 70450; 71045; 71275; 74177; 80053; 83605; 83690; 83880; 84484; 85025; 85610; 85730; 87637; 93005; 96360; 96361; 99284; J7030; Q9967

== ENCOUNTER 2025-08-15 15:13 | Emergency (ER) | payer MEDICARE, OTHER, SELFPAY ==
--- OUTSIDE RECORDS SUMMARY | 2015-03-31 23:00 | XMS_ITS | Encounter Summary ---
Author Organization [facility] Healthcare Address [address] [place] [address] Care Team Providers Care Physical Education Instructor Name Role Phone Unavailable Primary Care Provider Unavailabl e Reason for Visit * Diagnostic Imaging (Routine) - Closed Specialty Diagnoses / Procedures Referred By Chasity t Referred To Contact Procedures Breast Imaging Screening Outside Reference Patricia Powell NP Phone: tel: fax: Referral ID Status Reason Start Date Expiration Date Visits Re quested Visits Authorized [id number] Closed 02/02/2022 03/04/2023 1 1 Encounter Details Date Type Department Care Team (Late st Contact Info) Description 04/01/[address] [facility] [address] [place] [address] Social History Tobacco Use Types Packs/Day Years Used Date Smoking Tobacco: Former Cigarettes 0.5 19 1 3 - 1991 Passive Smoke Exposure: Past Smokeless Tobacco: Never Alcohol Use Standard Drinks/Week Comments Yes 0 (1 standard drink = 0.6 oz pur e alcohol) rarely [facility] Utilities Answer Date Recorded In the [...] often do you attend chur ch or orthodoxy services? Patient unable to answer 04/01/2025 Do you belong to any clubs o r organizations such as alevism groups, unions, fraternal or athletic groups, or [...] any time in the past [address] [facility], were you homeless or living in a intermediate (including now)? 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 Question Answer Date of Assessment Author Have you ever felt the need to Cut down on your drinking? 0 03/31/2025 12:18 PM Vanessa Agarwal RN Have people ever Annoyed yo u by criticizing your drinking? 0 03/31/2025 12:18 PM Vanessa Agarwal RN Have you ever felt bad or Guilty about your drinking? 0 03/31/2025 12:18 PM Vanessa Agarwal RN Have you ever had a drink first thing in the morning to steady your nerves or get rid of a hangover? Eye environmental coordinator? 0 03/31/2025 12:18 PM Vanessa Agarwal RN CAGE SCORE: 2 or Greater = Positive 0 03/31/2025 12:18 PM Vanessa Agarwal RN * One or more falls in the last year Answer Date of Assessment Author 2 05/07/2025 11:09 AM TYSONT Maribel Morales [email or web address] * How many times? Answer Date of Assessment Author 2 or more 05/07/2025 11:09 AM CDT Andrew E [email or web address] * Was the patient injured in the fall? Answer Date of Assessment Author No 05/07/2025 11:09 AM CDYoel Morales E [email or web address] * Has trouble stepping up onto a curb Answer Date of Assessment Author 0 05/07/2025 11:09 AM CDT Andrew E [email or web address] * Advised to use a cane or walker to get around safely Answer Date of Assessment Author 2 05/07/2025 11:09 AM CDT Andrew E [email or web address] * Often has to britt to the toilet Answer Date of Assessment Author 1 05/07/2025 11:09 AM CDT Andrew E [email or web address] * Feels unsteady when walking Answer Date of Assessment Author 1 05/07/2025 11:09 AM CDT Andrew E [email or web address] * Has lost some feeling in feet Answer Date of Assessment Author 1 05/07/2025 11:09 AM CDYoel Morales E [email or web address] * Steadies self on furniture while walking at home Answer Date of Assessment Author 1 05/07/2025 11:09 AM CDT Andrew E [email or web address] * Takes medicine that makes him/her feel lightheaded or more tired than usual Answer Date of Assessment Author 0 05/07/2025 11:09 AM CDYoel Morales E [email or web address] * Worried about falling Answer Date of Assessment Author 0 05/07/2025 11:09 AM CDYoel Morales E [email or web address] * Takes medicine to sleep or improve mood Answer Date of Assessment Author 0 05/07/2025 11:09 AM CDT Andrew E [email or web address] * Needs to push with hands when rising from a chair Answer Date of Assessment Author 1 05/07/2025 11:09 AM CDT Andrew E [email or web address] * Often feels sad or depressed Answer Date of Assessment Author 0 05/07/2025 11:09 AM CDYoel Morales E [email or web address] * STEADI Score Total Answer Date of Assessment Author 9 05/07/2025 11:09 AM CDT Andrew E [email or web address] * STEADI Fall Risk Interventions Question Answer Date of Assessment Author Interventions applied Yellow armband;Room/Door/Paper work flagged;Assist with transfers/ambulation/us e of assist device;Instruct patient/family to call for help before getting up;Provide call light and instruct on how to use;Assist with dressing (if not accompanied by caregiver);Non-skid socks/shoes;Side rails up;Bed/Stretcher/Wheelc hair locked;Discharged via wheelchair with caregiver or staff escort;Patient educated and information given to patient regarding fall prevention 05/07/2025 11:19 AM CDT Annie Gilbert RN * Difference in Last Two Sinan Scores Answer Date of Assessment Author -4 07/04/2025 9:07 AM CDT Norbert Mcduffie * Question Answer Date of Assessment Author Arterial Line BP 118/64 04/29/2020 6:00 PM CDT Albino Salazar RN BP Method Automatic 07/04/2025 9:07 AM CDT Norbert Huizar MAP (mmHg) 71 07/04/2025 10:00 AM CDT Norbert Mosher * Jaqueline Fall Risk Question Answer Date of Assessment Author History of Falling 0 07/04/2025 6:21 AM TYSONT Leno Mullins RN Secondary Diagnosis 0 07/04/2025 6:21 AM Leno Moore RN Ambulatory Aids 15 07/04/2025 6:21 AM TYSONT Leno Trevino RN Intravenous Therapy/Heparin/Saline Lock 20 07/04/2025 6:21 AM Leno Bull RN Gait/Transferring 0 07/04/2025 6:21 AM TYSONT Leno Mullins RN Mental Status 0 07/04/2025 6:21 AM TYSONT Leno Stevens RN Auto Low/High - if selected proceed to interventions (retired) Low risk-patient immobile/non-ambul atory or 11/15/2021 2:25 PM AGENCY SALES DIRECTOR Tete Chinchilla RN Morse Fall Risk Score (Score >= 45 places fall precaution order) 35 07/04/2025 6:21 AM Leno Bull RN Prior Fall Event (Autopopulated from EMR) None found 07/04/2025 6:21 AM CDT Adela Mullins RN * Sinan Scale Question Answer Date of Assessment Author Sensory Perceptions 4 07/04/2025 9:07 AM CD T Mcduffie Norbert Moisture 4 07/04/2025 9:07 AM CDT McInt yre, Norbert Activity 4 07/04/2025 9:07 AM CDT McInt yre, Norbert Mobility 4 07/04/2025 9:07 AM CDT McInt yre, Norbert Nutrition 4 07/04/2025 9:07 AM CDT McInt yre, Norbert Friction and Shear 3 07/04/2025 9:07 AM CDT Norbert Mcduffie Sinan Scale Score 23 07/04/2025 9:07 AM CDT Norbert Mcduffie * BP Location Answer Date of Assessment Author Left arm 07/26/2025 3:20 PM AGENCY SALES DIRECTOR Vidhya Rodriguez CMA * Question Answer Date of Assessment Author Arterial Line MAP (mmHg) 86 04/29/2020 6:00 PM CDT Albino Parekh RN * Fall Risk Interventions Question Answer Date of Assessment Author All Low Fall Interventions Applied Yes 07/04/2025 6:21 AM CDT Leno Mullins RN All Low Fall Interventions EXCEPT: Non-skid footwear/socks 04/09/2025 10:50 PM CDT Agueda Clayton RN All Moderate Fall Interventions Applied Yes 04/10/2025 8:50 AM CDT Alban Aragon RN All Moderate Fall Risk Interventions EXCEPT: PT eval requested or obtained;OT eval requested or obtained 04/05/2025 8:40 AM CDT Shira Lewis RN All High Fall Risk Interventions Applied Yes 04/10/2025 8:50 AM CDT Alban Aragon RN All High Risk Interventions EXCEPT: Bed alarm;Chair alarm 04/05/2025 8:40 AM CDT Shira Lewis RN Additional Interventions Applied Bed/chair alarm;Bedside commode;Over-bed table on non-exit side;Exit bed on strong/preferred side 04/10/2025 8:50 AM Alban Crowe RN Reason For Exception(s) refused 04/09/20 10:50 PM TYSONT Agueda Clayton RN Reason For Exception(s) Patient demonstr ates steady gait with ambulation; Will have order placed if needed 04/03/2025 9:45 AM TYSONT Fe Starks RN Reason For Exception(s) preop 01/07/20 11:42 AM TYSONT Som Jane RN * Question Answer Date of Assessment Author PT Functional Mobility Therapeutic activ ity and gait training provided 11/14/2021 11:36 AM AGENCY SALES DIRECTOR Lucina Oliveros, PT * B.M.A.T. - Bedside Mobility Assessment Tool for Nurses Question Answer Date of Assessment Author Is patient able to participate in the BMAT? Yes 04/10/2025 8:50 AM Alban Crowe RN Reason patient is unable to participate in BMAT Medically contraindicated 04/04/2025 9:00 AM Raf Monet RN BMAT Level Level 3 - Yellow 04/10/2025 8:50 AM Alban Crowe RN Level 3 Equipment Use assistive device such as cane/walker 04/10/2025 8:50 AM Alban Crowe RN * Question Answer Date of Assessment Author 1. Has the patient self-reported, presented with clinical signs of, or have a documented history of any of the following within the past 30 days? No 03/31/2025 12:18 PM Vanessa Agarwal RN * Question Answer Date of Assessment Author Is the patient being treated today because it is known or suspected that they prepared, started, or tried to end their life? No 03/31/2025 12:18 PM Vanessa Agarwal RN * Question Answer Date of Assessment Author 1. In the past month, have you wished you were or that you could go to sleep and not wake up? No 03/31/2025 12:18 PM Vanessa Agarwal RN 2. In the past month, have you actually had any thoughts of killing yourself? No 03/31/2025 12:18 PM Vanessa Agarwal RN 6. Have you ever done anything, started to do anything, or prepared to do anything to end your life? No 03/31/2025 12:18 PM TYSONT An Vu RN * Suicide Risk Level Answer Date of Assessment Author No risk level 03/31/2025 12:18 PM Jeovanny Agarwal RN * Self-Injurious Risk Level Answer Date of Assessment Author No risk level 03/31/2025 12:18 PM Jeovanny Agarwal RN * Alcohol Withdrawal BP Hierarchy Answer Date of Assessment Author 77 07/29/2023 8:54 AM AGENCY SALES DIRECTOR Jeovanny Cota, WILFREDO * Pressure Injury Prevention Question Answer Date of Assessment Author Pressure Ulcer Prevention Interventions Keep skin clean and dry (Sensory Perception/Moistur e) 04/10/2025 8:50 AM TYSONT Alban Aragon RN 2 Nurse Skin Assessment Jessica PAL 03/31/2025 1:30 P M TYSONT Brittnee Kennedy RN Protective Foam Dressing Location Coccyx 04/09/2025 10:50 PM TYSONT Agueda Clayton, DEMARCO Special Mattress Other (Comment) 04/07/2025 9:50 PM CD T Nuha Meyers RN * Transdermal Patch Admission Assessment Question Answer Date of Assessment Author Transdermal Patch Assessment on Admission Not Present 03/31/2025 12:18 PM TYSONT Donato Vu RN * Over the past 2 weeks, how often have you been bothered by any of the following problems? Question Answer Date of Assessment Author Patient Health Questionnaire-2 Score 0 02/20/2025 6:00 AM Juan Ramon Townsend RN * AUDIT-C Score Answer Date of Assessment Author 1 06/26/2025 10:04 AM TYSONT Tina Spears RN * Question Answer Date of Assessment Author Little interest or pleasure in doing things Not at all 02/20/2025 6:00 AM Juan Ramon Townsend RN Feeling down, depressed, or hopeless Not at all 02/20/2025 6:00 AM Juan Ramon Townsend RN Trouble falling or staying asleep, or sleeping too much Not at all 02/20/2025 6:00 AM Juan Ramon Townsend RN Feeling tired or having little energy Not at all 02/20/2025 6:00 AM Juan Ramon Townsend RN Poor appetite or overeating Not at all 02/20/2025 6: 00 AM Juan Ramon Townsend RN Feeling bad about yourself - or that you are a failure or have let yourself or your family down Not at all 02/20/2025 6:00 AM Juan Ramon Townsend RN Trouble concentrating on things, such as reading the newspaper or watching television Not at all 02/20/2025 6:00 AM Jaun Ramon Townsend RN Moving or speaking so slowly that other people could have noticed? Or the opposite - being so fidgety or restless that you have been moving around a lot more than usual. Not at all 02/20/2025 6:00 AM Juan Ramon Townsend RN Thoughts that you would be better off or hurting yourself in some way Not at all 02/20/2025 6:00 AM Juan Ramon Townsend RN Patient Health Questionnaire-9 Score 0 02/20/2025 6:00 AM Juan Ramon Townsend RN * Alcohol Use Question Answer Date of Assessment Author Q1: How often do you have a drink containing alcohol? Monthly or less 06/26/2025 10:04 AM Tina Abdalla RN Q2: How many drinks containing alcohol do you have on a typical day when you are drinking? 1 or 2 06/26/2025 10:04 AM Tina Abdalla RN Q3: How often do you have six or more drinks on one occasion? Never 06/26/2025 10:04 AM Tina Abdalla RN * Fall Risk Assessment Tool - MEDFRAT Question Answer Date of Assessment Author Prior Fall Event (Autopopulated from EMR) None found 01/05/2025 1:06 PM Emil Villela RN Pt needs supervision/assistance with ambulation? (makes patient High risk) No 01/05/2025 1:06 PM Pallavi Villela RN History of falling in last 3 months, including since admission 0 01/05/2025 1:06 PM Pallavi Villela RN Confusion or disorientation 0 01/05/2025 1: 06 PM TYSONT Pallavi Astudillo RN Intoxicated or sedated 0 01/05/2025 1:06 PM Pallavi Villela RN Impaired gait 0 01/05/2025 1:06 PM CDT Pallavi Blackwood RN Mobility assist device used 0 01/05/2025 1: 06 PM Pallavi Villela RN Altered elimination 0 01/05/2025 1:06 PM Pallavi Collins RN Fall risk score: (1-2 low risk), (3-4 moderate risk), (5 or more high risk) 0 01/05/2025 1:06 PM Pallavi Villela RN Interventions - GENERAL USE as needed patient/family education;call light in reach;bed low/locked 01/05/2025 1:06 PM Pallavi Villela RN * Integumentary Question Answer Date of Assessment Author Skin Color Appropriate for ethnicity 07/04/2025 10:00 AM CDT Norbert Mcduffie Skin Condition/Temp Warm;Dry 07/04/2025 1 0:00 AM CDT Norbert Mcduffie Skin Integrity Surgical incision 07/04/2025 10: 00 AM TYSONT Norbert Mcduffie Skin Turgor Non-tenting 07/04/2025 9:07 AM CDT Norbert Mcduffie Integumentary Additional Assessments Yes-Sinan 04/10/2025 8:50 AM CDT Alban Aragon RN Integumentary (WDL) X 07/04/2025 1 0:00 AM CDT Norbert Mcduffie Skin Location coccyx 04/10/2025 8:50 AM CDT Alban Aragon RN * Wound (LDAs) Question Answer Date of Assessment Author Type of Wound (LDA) Surgical site 05/26/2020 9:00 AM C Jocelien Rose RN * Sinan Scale Question Answer Date of Assessment Author Sinan Scale Used Sinan 07/04/2025 9:07 AM CDT Norbert Mcduffie * Question Answer Date of Assessment Author Hearing - Right Ear Functional 06/26/2025 1 0:04 AM TYSONT Tina Spears RN Hearing - Left Ear Functional 06/26/2025 10 :04 AM CDT Tina Spears RN Assistive Devices/DME Eyeglasses;Denture s upper;Dentures lower;Other (Comment);Walker;Cane;M anual wheelchair;Toilet riser;Shower chair 06/26/2025 10:04 AM CDT Tina Spears RN * Question Answer Date of Assessment Author BP Method Automatic 07/04/2025 9:07 AM CDT Norbert Huizar * Question Answer Date of Assessment Author Edema +2 05/28/2020 8:15 PM CDT Norma Michaud RN RUE Edema No pitting 04/08/2025 9:30 AM CDT Joceline Busch RN RLE Edema No pitting 04/09/2025 10:50 PM CDT Agueda Valentine RN LUE Edema No pitting 04/08/2025 9:30 AM CDT Joceline Busch RN LLE Edema No pitting 04/09/2025 10:50 PM CDT Agueda Valentine RN Edema Right lower extremit y;Left lower extremity 04/09/2025 10:50 PM CDT Agueda Clayton RN * Question Answer Date of Assessment Author Affect Calm 04/08/2025 9:30 AM CDT Joceline Busch RN Mood Content 04/06/2025 9:00 AM CDT Rehan Corona RN * Question Answer Date of Assessment Author Percent Meal Eaten (%) 75 04/10/2025 12:10 P M CDT Rylee Garvin, BUBBA Feeding Level of Assistance Able to feed self 04/10/2025 10:30 AM CDT Alban Aragon RN Appetite Good 04/10/2025 10:30 AM TYSONT Alban Aragon RN Percent Snack Eaten (%) 100 04/07/2025 1:00 P M TYSONT Alban Aragon RN Diet Supplement Name/Percent Consumed % 100 ensure clear 04/10/2025 10:30 AM CDT Sae Aragon RN * BP Location Answer Date of Assessment Author Left arm 07/26/2025 3:20 PM Vidhya Henning CMA * Fall Risk Interventions Question Answer Date of Assessment Author All Low Fall Interventions Applied Yes 07/04/2025 6:21 AM TYSONT Leno Mullins RN All Low Fall Interventions EXCEPT: Non-skid footwear/socks 04/09/2025 10:50 PM TYSONT Agueda Clayton RN All Moderate Fall Interventions Applied Yes 04/10/2025 8:50 AM TYSONT Alban Aragon RN All Moderate Fall Risk Interventions EXCEPT: PT eval requested or obtained;OT eval requested or obtained 04/05/2025 8:40 AM Shira Moy RN All High Fall Risk Interventions Applied Yes 04/10/2025 8:50 AM TYSONT Alban Aragon RN All High Risk Interventions EXCEPT: Bed alarm;Chair alarm 04/05/2025 8:40 AM Shira Moy RN Additional Interventions Applied Bed/chair alarm;Bedside commode;Over-bed table on non-exit side;Exit bed on strong/preferred side 04/10/2025 8:50 AM Alban Crowe RN Reason For Exception(s) refused 04/09/20 10:50 PM TYSONT Agueda Clayton RN Reason For Exception(s) Patient demonstr ates steady gait with ambulation; Will have order placed if needed 04/03/2025 9:45 AM TYSONT Fe Starks RN Reason For Exception(s) preop 01/07/20 11:42 AM CDT Som Jane RN * Question Answer Date of Assessment Author Skin Care Protective barrier 05/28/2020 6:00 AM TYSONT Norma Krishnamurthy, DEMARCO * ADL Screening Question Answer Date of Assessment Author Patient's Vision Adequate to Safely Complete Daily Activities Yes 03/31/2025 12:18 PM Vanessa Agarwal RN Patient's Judgement Adequate to Safely Complete Daily Activities Yes 03/31/2025 12:18 PM Vanessa Agarwal RN Patient's Memory Adequate to Safely Complete Daily Activities Yes 03/31/2025 12:18 PM Vanessa Agarwal RN Patient Able to Express Needs/Desires Yes 03/31/2025 12:18 PM Vanessa Agarwal RN Dressing Needs assistance 03/31/2025 12:18 PM Vanessa Agarwal RN Grooming Needs assistance 03/31/2025 12:18 PM Vanessa Agarwal RN Feeding Needs assistance 03/31/2025 12:18 PM Vanessa Agarwal RN Bathing Needs assistance 03/31/2025 12:18 PM Vanessa Agarwal RN Toileting Needs assistance 03/31/2025 12:18 PM Vanessa Agarwal RN In/Out Bed Needs assistance 03/31/2025 12:18 PM Vanessa Agarwal RN Walks in Home Needs assistance 03/31/2025 12:18 PM Vanessa Agarwal RN Weakness of Legs Both 03/31/2025 12:18 PM Vanessa Agarwal RN Weakness of Arms/Hands Both 03/31/2025 12:18 P M Vanessa Agarwal RN Dominant hand? Right 03/31/2025 12:18 PM Vanessa Boone RN Decline in ADLs in last 2 weeks? Yes (Comment) 03/31/2025 12:18 PM Vanessa Agarwal RN * Therapy Consults Question Answer Date of Assessment Author PT Evaluation Needed 1 03/31/2025 12:18 PM Vanessa Agarwal RN OT Evaluation Needed 1 03/31/2025 12:18 PM Vanessa Agarwal RN SMALL BUSINESS REPRESENTATIVE Evaluation Needed 2 03/31/2025 12:18 PM Vanessa Agarwal RN * Over the past 2 weeks, how often have you been bothered by any of the following problems? Question Answer Date of Assessment Author Patient Health Questionnaire-2 Score 0 02/20/2025 6:00 AM Juan Ramon Townsend RN * How difficult have these problems made it for you to do your work, take care of things at home, or get along with other people? Answer Date of Assessment Author Somewhat difficult 01/08/2025 12:00 PM Tete Elliott RN * Over the past 2 weeks, how often have you been bothered by any of the following problems? Question Answer Date of Assessment Author Little interest or pleasure in doing things Not at all 02/20/2025 6:00 AM Juan Ramon Townsend RN Feeling down, depressed, or hopeless Not at all 02/20/2025 6:00 AM Juan Ramon Townsend RN Trouble falling or staying asleep, or sleeping too much Not at all 02/20/2025 6:00 AM Juan Ramon Townsend RN Feeling tired or having little energy Not at all 02/20/2025 6:00 AM Juan Ramon Townsend RN Poor appetite or overeating Not at all 02/20/2025 6: 00 AM Juan Ramon Townsend RN Feeling bad about yourself - or that you are a failure or have let yourself or your family down Not at all 02/20/2025 6:00 AM Juan Ramon Townsend RN Trouble concentrating on things, such as reading the newspaper or watching television Not at all 02/20/2025 6:00 AM Juan Ramon Townsend RN Moving or speaking so slowly that other people could have noticed? Or the opposite - being so fidgety or restless that you have been moving around a lot more than usual. Not at all 02/20/2025 6:00 AM Juan Ramon Townsend RN Thoughts that you would be better off or hurting yourself in some way Not at all 02/20/2025 6:00 AM Juan Ramon Townsend RN Patient Health Questionnaire-9 Score 0 02/20/2025 6:00 AM Juan Ramon Townsend RN * Question Answer Date of Assessment Author Bed In Lowest Position Yes 04/10/2025 2:11 PM Alban Crowe RN Bed Wheels Locked Yes 04/10/2025 2:11 PM Alban Crowe RN * Hygiene Question Answer Date of Assessment Author Hygiene Protective barrier cream 025 11:04 PM Agueda Turner, DEMARCO Oral Care Teeth brushed 02/21/2025 8:04 AM TYSONT Lisa Michel Hygiene Level of Assistance Moderate assist 04/09/2025 11:04 PM Agueda Turner, DEMARCO Toileting: Assistance with Bedside commode 04/10/2025 12:10 PM Rylee Montgomery EMT Toileting: Level of assistance Moderate 04/10/2025 12:10 PM TYSONT Rylee Garvin, BUBBA Reason not bathed/showered Bath not due on this shift 03/31/2025 7:45 PM TYSONT Dorita Marroquin, DEMARCO Perineal Care Venita Care 04/10/2025 3:27 AM Agueda Turner, DEMARCO Linens Absorbent pad changed 04/09/2025 3:22 AM Agueda Turner RN Bath Bathed/showered with chlorhexidine (CHG) 04/09/2025 9:58 AM CDT Raquel Sanford documented as of this encounter Mental Status * Question Answer Entry Date Author Neuro (WDL) WDL 04/08/2025 9:30 AM Joceline Tan RN Other Neuro Symptoms Fatigue 04/10/2025 8:50 AM Alban Carabjal RN * Cognitive Test Comments Question Answer Entry Date Author Cognitive Test Comments Pt endorses effe ctive use of memory strategies at home for cognitive IADLs like medication managment and to help her remember important dates like doctor's appointments. Pt's endorses that he is able to assist as needed with cognitive IADLs and that she does struggle with memory at times. 05/22/2020 1:55 PM CDT Diann Hernandez * Short Blessed Test Question Answer Entry Date Author What year is it now? 4 04/02/2025 8:14 AM CDT Kindra Vazquez OT What month is it now? 3 04/02/2025 8:14 AM CDT Kindra Vazquez OT Without looking at the clock, tell me what time it is 0 04/02/2025 8:14 AM CDT Kindra Vazquez OT Count aloud backwards from 20-1 0 04/02/2025 8:14 AM CDT Kindra Vazquez OT Say the months of the year backwards in reverse order 4 04/02/2025 8:14 AM CDT Kindra Vazquez OT Repeat the name and address I asked you to remember 4 04/02/2025 8:14 AM CDT Kindra Vazquez OT Repeat this name and address after me Faheem Hernandez [address] [place] [address] 04/02/2025 8:14 AM CDT Kindra Vazquez OT Short Blessed Total Score 15 04/02/2025 8:14 AM CDT Kindra Vazquez OT Short Blessed Comments impaired 8:14 AM CDT Kindra Vazquez OT * Question Answer Entry Date Author Level of Consciousness Alert;Awake;Respo nds to voice 07/04/2025 10:00 AM CDT Norbert Mcduffie Orientation Oriented X4 (person, place, time, situation) 07/04/2025 10:00 AM CDT Norbert Mcduffie Neuro (WDL) X 07/04/2025 10:00 AM CDT Norbert Mcduffie documented in this encounter Plan of Treatment Not on [...] only and have not been reviewed by [facility] Radiology. There will be no report generated by a [facility] Radiologist. Narrative [facility] - 02/02/2022 3:04 PM CDT EXAMINATION: Images For Reference Purposes Only us Patricia Powell CUSTOMER LIAISON IMG MAMMO PROCEDURES Fin al Result [facility] documented in this encounter Visit Diagnoses Not on filedocumented in this encounter Additional Health Concerns Infection Onset Date Last Indicated Resolved Time COVID: Suspected 11/13/2021 11/13/2021 11/13/2021 2:41 PM AGENCY SALES DIRECTOR C. difficile suspected 02/19/2025 02/19/202502/21 2:35 PM CDT Ring Surveillance: C. auris Comment:[id number] 02/20/2025 02/20/2025 02/27/2025 7:26 PM C DT C. difficile suspected 03/31/2025 03/31/202503/31 7:21 PM CDT VRE 03/31/2025 03/31/2025 documented as of this encounter
--- OUTSIDE RECORDS SUMMARY | 2015-03-31 23:00 | XMS_ITS | Encounter Summary ---
Author Organization [facility] Healthcare Address [address] [place] [address] Care Team Providers Care Columnist Name Role Phone Unavailable Primary Care Provider Unavailabl e Reason for Visit * Diagnostic Imaging (Routine) - Closed Specialty Diagnoses / Procedures Referred By Chasity t Referred To Contact Procedures Breast Imaging Screening Outside Reference Patricia Powell NP Phone: tel: fax: Referral ID Status Reason Start Date Expiration Date Visits Re quested Visits Authorized [id number] Closed 02/02/2022 03/04/2023 1 1 Encounter Details Date Type Department Care Team (Late st Contact Info) Description 04/01/2015 Hospital Encounter [facility]) [address] [place] [address] Social History Tobacco Use Types Packs/Day Years Used Date Smoking Tobacco: Former Cigarettes 0.5 19 1 3 - 1991 Passive Smoke Exposure: Past Smokeless Tobacco: Never Alcohol Use Standard Drinks/Week Comments Yes 0 (1 standard drink = 0.6 oz pur e alcohol) rarely [facility] Utilities Answer Date Recorded In the [...] often do you attend chur ch or cheondoism services? Patient unable to answer 04/01/2025 Do you belong to any clubs o r organizations such as adventist groups, unions, fraternal or athletic groups, or [...] any time in the past 12 m [facility], were you homeless or living in a prison (including now)? 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 0 03/31/2025 12:18 PM Vanessa Agarwal RN [...] risk-patient immobile/non-ambul atory or 11/15/2021 2:25 PM FIRE PROTECTION EQUIPMENT TECHNICIAN Tete Chinchilla RN Morse Fall Risk Score [...] Assessment Author Left arm 07/26/2025 3:20 PM FIRE PROTECTION EQUIPMENT TECHNICIAN Vidhya Rodriguez CMA * Question Answer Date [...] and gait training provided 11/14/2021 11:36 AM FIRE PROTECTION EQUIPMENT TECHNICIAN Lucina Oliveros, PT * B.M.A.T. - Bedside [...] of Assessment Author 77 07/29/2023 8:54 AM FIRE PROTECTION EQUIPMENT TECHNICIAN Jeovanny Cota, WILFREDO * Pressure Injury Prevention Question Answer Date of Assessment Author Pressure Ulcer Prevention Interventions Keep skin clean and dry (Sensory Perception/Moistur e) 04/10/2025 8:50 AM TYSONT Alban Aragon RN 2 Nurse Skin Assessment Jessica PAL 03/31/2025 1:30 P M TSYONT Brittnee Kennedy RN Protective Foam Dressing Location [...] Not at all 02/20/2025 6:00 AM Juan Raomn Townsend RN Trouble concentrating on things, such [...] (LDA) Surgical site 05/26/2020 9:00 AM C Joceline Rose RN * Sinan Scale Question Answer [...] For Exception(s) preop 01/07/20 11:42 AM CDT oSm Jane RN * Question Answer Date of [...] 1 03/31/2025 12:18 PM Vanessa Agarwal RN BEAMER HAND Evaluation Needed 2 03/31/2025 12:18 PM Vanessa [...] Neuro Symptoms Fatigue 04/10/2025 8:50 AM Alban Carbajal RN * Cognitive Test Comments Question Answer [...] name and address after me Faheem Hernandez [address] [place] [address] 04/02/2025 8:14 AM CDT Kindra Vazquez OT [...] only and have not been reviewed by [facility] Radiology. There will be no report generated by a [facility] Radiologist. Narrative [facility]MAMMO[facility] - 02/02/2022 3:04 PM CDT EXAMINATION: Images For Reference Purposes Only us Patricia Powell MACHINE CLOTH EXAMINER IMG MAMMO PROCEDURES Fin al Result [facility] documented in this encounter Visit Diagnoses Not on filedocumented in this encounter Additional Health Concerns Infection Onset Date Last Indicated Resolved Time COVID: Suspected 11/13/2021 11/13/2021 11/13/2021 2:41 PM FIRE PROTECTION EQUIPMENT TECHNICIAN C. difficile suspected 02/19/2025 02/19/202502/21 2:35 PM CDT Ring Surveillance: C. auris Comment:[id number] 02/20/2025 02/20/2025 02/27/2025 7:26 PM C DT C. difficile suspected 03/31/2025 03/31/202503/31 7:21 PM CDT VRE 03/31/2025 03/31/2025 documented as of this encounter
--- OUTSIDE RECORDS SUMMARY | 2015-04-08 23:00 | XMS_ITS | Encounter Summary ---
Author Organization [facility] Healthcare Address [address] [place] [address] Care Team Providers Care Threshing Machine Operator Name Role Phone Unavailable Primary Care Provider Unavailabl e Reason for Visit * Diagnostic Imaging (Routine) - Closed Specialty Diagnoses / Procedures Referred By Chasity t Referred To Contact Diagnoses BRCA1 positive Encounter for screening mammogram for malignant neoplasm of breast Procedures Breast Imaging US Outside Reference Patricia Powell NP Phone: tel: fax: Referral ID Status Reason Start Date Expiration Date Visits Re quested Visits Authorized [id number] Closed 02/02/2022 03/04/2023 1 1 Encounter Details Date Type Department Care Team (Late st Contact Info) Description 04/09/2015 Hospital Encounter [facility]) [address] [place] [id number] Social History Tobacco Use Types Packs/Day Years Used Date Smoking Tobacco: Former Cigarettes 0.5 19 1 973 - 1991 Passive Smoke Exposure: Past Smokeless Tobacco: Never Alcohol Use Standard Drinks/Week Comments Yes 0 (1 standard drink = 0.6 oz pur e alcohol) rarely [facility] Utilities Answer Date Recorded In the past 12 months has [employer] electric, gas, oil, or water company threatened [...] often do you attend chur ch or anglican services? Patient unable to answer 04/01/2025 Do you belong to any clubs o r organizations such as religion groups, unions, fraternal or athletic groups, or [...] any time in the past 12 m [facility], were you homeless or living in a senior living (including now)? 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 Eye orthoptist? 0 03/31/2025 12:18 PM Vanessa Agarwal RN CAGE SCORE: 2 or Greater = Positive 0 03/31/2025 12:18 PM Vanessa Agarwal RN * One or more falls in the last year Answer Date of Assessment Author 2 05/07/2025 11:09 AM TYSONT Maribel Morales [email or web address] * How many times? Answer Date of Assessment Author 2 or more 05/07/2025 11:09 AM CDT Andrew, E [email or web address] * Was the patient injured in the fall? Answer Date of Assessment Author No 05/07/2025 11:09 AM CDT Andrew, E [email or web address] * Has trouble stepping up onto a curb Answer Date of Assessment Author 0 05/07/2025 11:09 AM CDT Kileighann, E [email or web address] * Advised to use a cane or walker to get around safely Answer Date of Assessment Author 2 05/07/2025 11:09 AM CDT Kiriccardok, E [email or web address] * Often has to britt to the toilet Answer Date of Assessment Author 1 05/07/2025 11:09 AM CDT Andrew, E [email or web address] * Feels unsteady when walking Answer Date of Assessment Author 1 05/07/2025 11:09 AM CDT Andrew, E [email or web address] * Has lost some feeling in feet Answer Date of Assessment Author 1 05/07/2025 11:09 AM CDT Andrew E [email or web address] * Steadies self on furniture while walking at home Answer Date of Assessment Author 1 05/07/2025 11:09 AM CDT Andrew, E [email or web address] * Takes medicine that makes him/her feel lightheaded or more tired than usual Answer Date of Assessment Author 0 05/07/2025 11:09 AM CDT Andrew E [email or web address] * Worried about falling Answer Date of Assessment Author 0 05/07/2025 11:09 AM CDT Andrew E [email or web address] * Takes medicine to sleep or improve mood Answer Date of Assessment Author 0 05/07/2025 11:09 AM CDT Andrew, E [email or web address] * Needs to push with hands when rising from a chair Answer Date of Assessment Author 1 05/07/2025 11:09 AM CDT Andrew, E [email or web address] * Often feels sad or depressed Answer Date of Assessment Author 0 05/07/2025 11:09 AM CDT Andrew E [email or web address] * STEADI Score Total Answer [...] BP 118/64 04/29/2020 6:00 PM CDT Albino Salazar, DEMARCO BP Method Automatic 07/04/2025 9:07 AM CDT Norbert Huizar MAP (mmHg) 71 07/04/2025 10:00 AM CDT Norbert Mosher * Parsons Fall Risk Question Answer Date of Assessment Author History of Falling 0 07/04/2025 6:21 AM Leno Bull RN Secondary Diagnosis 0 07/04/2025 6:21 AM [...] risk-patient immobile/non-ambul atory or 11/15/2021 2:25 PM MOTOR COACH OPERATOR Tete Chinchilla, RN Parsons Fall Risk Score (Score >= 45 places fall precaution order) 35 07/04/2025 6:21 AM Leno Bull RN Prior Fall Event (Autopopulated from EMR) None found 07/04/2025 6:21 AM CDT Adela Mullins RN * Sinan Scale Question Answer Date of Assessment Author Sensory Perceptions 4 07/04/2025 9:07 AM CD T Mcduffie, Norbert Moisture 4 07/04/2025 9:07 AM CDT McInt yre, Norbert Activity 4 07/04/2025 9:07 AM CDT McInt yre, Norbert Mobility 4 07/04/2025 9:07 AM CDT McInt yre, Norbert Nutrition 4 07/04/2025 9:07 AM CDT McInt yre, Norbert Friction and Shear 3 07/04/2025 9:07 AM CDT Mcduffie, Brian Sinan Scale Score 23 07/04/2025 9:07 AM CDT Mcduffie, Onrbert * BP Location Answer Date of Assessment Author Left arm 07/26/2025 3:20 PM MOTOR COACH OPERATOR Vidhya Rodriguez CMA * Question Answer Date [...] requested or obtained 04/05/2025 8:40 AM CDT hSira Lewis RN All High Fall Risk Interventions Applied Yes 04/10/2025 8:50 AM CDT Alban Aragon RN All High Risk Interventions EXCEPT: Bed alarm;Chair alarm 04/05/2025 8:40 AM TYSONT Shira Lewis RN Additional Interventions Applied Bed/chair [...] and gait training provided 11/14/2021 11:36 AM MOTOR COACH OPERATOR Lucina Oliveros, PT * B.M.A.T. - Bedside [...] of killing yourself? No 03/31/2025 12:18 PM TYSONT Vanessa Vu RN 6. Have you ever done anything, started to do anything, or prepared to do anything to end your life? No 03/31/2025 12:18 PM TYSONT An Vu RN * Suicide Risk Level Answer Date of Assessment Author No risk level 03/31/2025 12:18 PM TYSONT Jeovanny Vu RN * Self-Injurious Risk Level Answer Date of Assessment Author No risk level 03/31/2025 12:18 PM Jeovanny Agarwal RN * Alcohol Withdrawal BP Hierarchy Answer Date of Assessment Author 77 07/29/2023 8:54 AM MOTOR COACH OPERATOR Jeovanny Cota, WILFREDO * Pressure Injury Prevention Question Answer Date of Assessment Author Pressure Ulcer Prevention Interventions Keep skin clean and dry (Sensory Perception/Moistur e) 04/10/2025 8:50 AM TYSONT Alban Aragon RN 2 Nurse Skin Assessment Jessica RN 03/31/2025 1:30 P M CDT Brittnee Kennedy RN Protective Foam Dressing Location Coccyx 04/09/2025 10:50 PM CDT Agueda Clayton, DEMARCO Special Mattress Other (Comment) 04/07/2025 9:50 PM CD T Nuha Meyers, DEMARCO * Transdermal Patch Admission Assessment Question Answer [...] or disorientation 0 01/05/2025 1: 06 PM Pallavi Villela RN Intoxicated or sedated 0 01/05/2025 1:06 PM Pallavi Villela RN Impaired gait 0 01/05/2025 1:06 PM Pallavi Hernandez RN Mobility assist device used 0 01/05/2025 [...] Color Appropriate for ethnicity 07/04/2025 10:00 AM TYSONT Norbert Mcduffie Skin Condition/Temp Warm;Dry 07/04/2025 1 0:00 AM TYSONT Norbert Mcduffie Skin Integrity Surgical incision 07/04/2025 10: 00 AM CDT Norbert Mcduffie Skin Turgor Non-tenting 07/04/2025 9:07 AM Norbert Barcenas Integumentary Additional Assessments Yes-Sinan 04/10/2025 8:50 AM TYSONT Alban Aragon RN Integumentary (WDL) X 07/04/2025 1 0:00 AM CDT Norbert Mcduffie Skin Location coccyx 04/10/2025 8:50 AM TYSONT Alban Aragon RN * Wound (LDAs) Question [...] Edema +2 05/28/2020 8:15 PM CDT Norma Michaud, DEMARCO RUE Edema No pitting 04/08/2025 9:30 AM [...] 04/10/2025 12:10 P M CDT Rylee Garvin, EMT Feeding Level of Assistance Able to feed self 04/10/2025 10:30 AM CDAlban Marmolejo RN Appetite Good 04/10/2025 10:30 AM Alban Crowe RN Percent Snack Eaten (%) 100 04/07/2025 1:00 P M Alban Crowe RN Diet Supplement Name/Percent Consumed % 100 ensure clear 04/10/2025 10:30 AM Sae Crowe RN * BP Location Answer Date of Assessment Author Left arm 07/26/2025 3:20 PM MOTOR COACH OPERATOR Vidhya Rodriguez CMA * Fall Risk Interventions Question Answer Date of Assessment Author All Low Fall Interventions Applied Yes 07/04/2025 6:21 AM Leno Bull RN All Low Fall Interventions EXCEPT: Non-skid footwear/socks 04/09/2025 10:50 PM Agueda Turner RN All Moderate Fall Interventions Applied Yes 04/10/2025 8:50 AM Alban Crowe RN All Moderate Fall Risk Interventions EXCEPT: PT eval requested or obtained;OT eval requested or obtained 04/05/2025 8:40 AM Shira Moy RN All High Fall Risk Interventions Applied Yes 04/10/2025 8:50 AM Alban Crowe RN All High Risk Interventions EXCEPT: Bed [...] order placed if needed 04/03/2025 9:45 AM Fe Dee RN Reason For Exception(s) preop 01/07/20 11:42 AM TYSONT Som Jane RN * Question Answer Date of Assessment Author Skin Care Protective barrier 05/28/2020 6:00 AM Norma Luque, DEMARCO * ADL Screening Question Answer Date [...] 1 03/31/2025 12:18 PM Vanessa Agarwal RN MATRIX BATH ATTENDANT Evaluation Needed 2 03/31/2025 12:18 PM Vanessa [...] Protective barrier cream 025 11:04 PM Agueda Turner RN Oral Care Teeth brushed 02/21/2025 8:04 AM TYSONT Lisa Michel Hygiene Level of Assistance Moderate assist 04/09/2025 11:04 PM Agueda Turner RN Toileting: Assistance with Bedside commode 04/10/2025 12:10 PM Rylee Montgomery EMT Toileting: Level of assistance Moderate 04/10/2025 12:10 PM Rylee Montgomery EMT Reason not bathed/showered Bath not due on this shift 03/31/2025 7:45 PM TYSONT Dorita Marroquin RN Perineal Care Venita Care 04/10/2025 3:27 AM [...] is it now? 4 04/02/2025 8:14 AM TYSONT Kindra Vazquez OT What month is it now? 3 04/02/2025 8:14 AM CDT Kindra Vazquez OT Without looking at the clock, tell me what time it is 0 04/02/2025 8:14 AM TYSONT Kindra Vazquez OT Count aloud backwards from 20-1 0 04/02/2025 8:14 AM TYSONT Kindra Vazquez OT Say the months of the year backwards in reverse order 4 04/02/2025 8:14 AM Kindra Borjas OT Repeat the name and address I asked you to remember 4 04/02/2025 8:14 AM Kindra Borjas OT Repeat this name and address after me Faheem Hernandez [address] [place] [address] 04/02/2025 8:14 AM TYSONT Kindra Vazquez OT Short Blessed Total Score 15 04/02/2025 8:14 AM TYSONT Kindra Vazquez OT Short Blessed Comments impaired 8:14 AM CDT Kindra Vazquez OT * Question Answer Entry Date Author Level of Consciousness Alert;Awake;Respo nds to voice 07/04/2025 10:00 AM Norbert Barcenas Orientation Oriented X4 (person, place, time, situation) 07/04/2025 10:00 AM Norbert Barcenas Neuro (WDL) X 07/04/2025 10:00 AM TYSONT Norbert Mcduffie documented in this encounter Plan of Treatment Not on file documented as of this encounter Procedures Procedure Name Priority Date/Time Associated Diagnosis Comments BREAST IMAGING US OUTSIDE REFERENCE Schedule Routine, Read Routine (OP Routine) 04/09/2015 12:00 AM CDT BRCA1 positive Encounter for screening mammogram for malignant neoplasm of breast documented in this encounter Results * Breast Imaging US Outside Reference (04/09/2015 12:00 AM CDT) Impressions [facility] - 02/02/2022 3:03 PM CDT These images are for Reference purposes only and have not been reviewed by [facility] Radiology. There will be no report generated by a [facility] Radiologist. Narrative [facility] - 02/02/2022 3:03 PM CDT EXAMINATION: Images For Reference Purposes Only us Patricia Powell NP IMG MAMMO PROCEDURES Fin al Result [facility] documented in this encounter Visit Diagnoses Not on filedocumented in this encounter Additional Health Concerns Infection Onset Date Last Indicated Resolved Time COVID: Suspected 11/13/2021 11/13/2021 11/13/2021 2:41 PM MOTOR COACH OPERATOR C. difficile suspected 02/19/2025 02/19/202502/21 2:35 PM CDT Ring Surveillance: C. auris Comment:[id number] 02/20/2025 02/20/2025 02/27/2025 7:26 PM C DT C. difficile suspected 03/31/2025 03/31/202503/31 7:21 PM CDT VRE 03/31/2025 03/31/2025 documented as of this encounter
--- OUTSIDE RECORDS SUMMARY | 2015-04-08 23:00 | XMS_ITS | Encounter Summary ---
Author Organization [facility] Healthcare Address [address] [place] [address] Care Team Providers Care Continuous Churn Buttermaker Name Role Phone Unavailable Primary Care Provider [...] Expiration Date Visits Re quested Visits Authorized [id number] Closed 02/02/2022 03/04/2023 1 1 Encounter Details Date Type Department Care Team (Late st Contact Info) Description 04/09/2015 Hospital Encounter [facility]) [address] [place] [phone] Social History Tobacco Use Types Packs/Day Years Used Date Smoking Tobacco: Former Cigarettes 0.5 19 1 973 - 1991 Passive Smoke Exposure: Past Smokeless Tobacco: Never Alcohol Use Standard Drinks/Week Comments Yes 0 (1 standard drink = 0.6 oz pur e alcohol) rarely [facility] Utilities Answer Date Recorded In the past 12 months has [employer] electric, gas, oil, or water company threatened [...] often do you attend chur ch or worship services? Patient unable to answer 04/01/2025 Do you belong to any clubs o r organizations such as denominational groups, unions, fraternal or athletic groups, or [...] any time in the past 12 m [facility], were you homeless or living in a half-way (including now)? 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 Eye batching operator? 0 03/31/2025 12:18 PM Vanessa Agarwal RN [...] risk-patient immobile/non-ambul atory or 11/15/2021 2:25 PM JOGGER OPERATOR Tete Chinchilla, RN Parsons Fall Risk [...] Score 23 07/04/2025 9:07 AM CDT Mcduffie, Norbert * BP Location Answer Date of Assessment Author Left arm 07/26/2025 3:20 PM JOGGER OPERATOR Vidhya Rodriguez CMA * Question Answer [...] and gait training provided 11/14/2021 11:36 AM JOGGER OPERATOR Lucina Oliveros, PT * B.M.A.T. - [...] of Assessment Author 77 07/29/2023 8:54 AM JOGGER OPERATOR Jeovanny Cota, WILFREDO * Pressure Injury [...] Assessment Author Left arm 07/26/2025 3:20 PM JOGGER OPERATOR Vidhya Rodriguez CMA * Fall Risk [...] Interventions Applied Yes 04/10/2025 8:50 AM Alban Crwoe RN All High Risk Interventions EXCEPT: Bed [...] 1 03/31/2025 12:18 PM Vanessa Agarwal RN SOCCER BALL ASSEMBLER Evaluation Needed 2 03/31/2025 12:18 PM Vanessa [...] name and address after me Faheem Hernandez [address] [place] [address] 04/02/2025 8:14 AM TYSONT Kindra Vazquez OT [...] only and have not been reviewed by [facility] Radiology. There will be no report generated by a [facility] Radiologist. Narrative [facility]MAMMO[facility] - 02/02/2022 3:03 PM CDT EXAMINATION: Images For Reference Purposes Only us Patricia Powell NP IMG MAMMO PROCEDURES Fin al Result [facility] documented in this encounter Visit Diagnoses Not on filedocumented in this encounter Additional Health Concerns Infection Onset Date Last Indicated Resolved Time COVID: Suspected 11/13/2021 11/13/2021 11/13/2021 2:41 PM JOGGER OPERATOR C. difficile suspected 02/19/2025 02/19/202502/21 2:35 PM CDT Ring Surveillance: C. auris Comment:[id number] 02/20/2025 02/20/2025 02/27/2025 7:26 PM C DT C. difficile suspected 03/31/2025 03/31/202503/31 7:21 PM CDT VRE 03/31/2025 03/31/2025 documented as of this encounter
--- OUTSIDE RECORDS SUMMARY | 2015-04-08 23:05 | XMS_ITS | Encounter Summary ---
Author Organization [facility] Healthcare Address [address] [place] [address] Care Team Providers Care Blower Mechanic Name Role Phone Unavailable Primary Care Provider Unavailabl e Reason for Visit * Diagnostic Imaging (Routine) - Closed Specialty Diagnoses / Procedures Referred By Chasity vanegas Referred To Contact Procedures Breast Imaging Diagnostic Outside Reference Patricia Powell NP Phone: tel: fax: Referral ID Status Reason Start Date Expiration Date Visits Re quested Visits Authorized [id number] Closed 02/02/2022 03/04/2023 1 1 Encounter Details Date Type Department Care Team (Late st Contact Info) Description 04/09/2015 12:05 AM CDT Hospital Encounter [facility]) [address] [place] [id number] Social History Tobacco Use Types Packs/Day Years Used Date Smoking Tobacco: Former Cigarettes 0.5 19 1 3 - 1991 Passive Smoke Exposure: Past Smokeless Tobacco: Never Alcohol Use Standard Drinks/Week Comments Yes 0 (1 standard drink = 0.6 oz pur e alcohol) rarely [facility] Utilities Answer Date Recorded In the past [...] often do you attend chur ch or roman catholic services? Patient unable to answer 04/01/2025 Do you belong to any clubs o r organizations such as lutheran groups, unions, fraternal or athletic groups, or [...] any time in the past 12 m [facility], were you homeless or living in a senior care (including now)? 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 0 03/31/2025 12:18 PM Vanessa Agarwal RN CAGE SCORE: 2 or Greater = Positive 0 03/31/2025 12:18 PM TYSONT Vanessa Vu RN * One or more falls in the last year Answer Date of Assessment Author 2 05/07/2025 11:09 AM TYSONT Maribel Morales [email or web address] * How many times? Answer Date of Assessment Author 2 or more 05/07/2025 11:09 AM CDT Andrew E [email or web address] * Was the patient injured in the fall? Answer Date of Assessment Author No 05/07/2025 11:09 AM CDT Andrew E [email or web address] * Has trouble stepping up onto a curb Answer Date of Assessment Author 0 05/07/2025 11:09 AM CDT Kiriccardok, E [email or web address] * Advised to use a cane or walker to get around safely Answer Date of Assessment Author 2 05/07/2025 11:09 AM CDT Kiosk, E [email or web address] * Often has to britt [...] of Assessment Author 9 05/07/2025 11:09 AM CDYoel Morales E [email or web address] * STEADI Fall Risk Interventions [...] Bull RN Gait/Transferring 0 07/04/2025 6:21 AM Leno Bull RN Mental Status 0 07/04/2025 6:21 AM TYSONT Leno Stevens RN Auto Low/High - if selected proceed to interventions (retired) Low risk-patient immobile/non-ambul atory or infant 11/15/2021 2:25 PM CLIENT SERVICE SUPERVISOR Tete Chinchilla RN Morse Fall Risk Score (Score >= 45 places fall precaution order) 35 07/04/2025 6:21 AM CDT Pilat, Wioletta A ., RN Prior Fall Event (Autopopulated from EMR) [...] Scale Score 23 07/04/2025 9:07 AM CDT Mirela Mcduffieian * BP Location Answer Date of Assessment Author Left arm 07/26/2025 3:20 PM CLIENT SERVICE SUPERVISOR Vidhya Rodriguez CMA * Question Answer Date [...] bed on strong/preferred side 04/10/2025 8:50 AM Albna Crowe RN Reason For Exception(s) refused 04/09/20 [...] and gait training provided 11/14/2021 11:36 AM CLIENT SERVICE SUPERVISOR Lucina Oliveros, PT * B.M.A.T. - Bedside [...] of killing yourself? No 03/31/2025 12:18 PM CDT Vanessa Vu RN 6. Have you ever done anything, started to do anything, or prepared to do anything to end your life? No 03/31/2025 12:18 PM CDT An Vu RN * Suicide Risk Level Answer Date of Assessment Author No risk level 03/31/2025 12:18 PM Jeovanny Agarwal RN * Self-Injurious Risk Level Answer Date of Assessment Author No risk level 03/31/2025 12:18 PM Jeovanny Agarwal RN * Alcohol Withdrawal BP Hierarchy Answer Date of Assessment Author 77 07/29/2023 8:54 AM CLIENT SERVICE SUPERVISOR Jeovanny Cota, WILFREDO * Pressure Injury Prevention Question Answer Date of Assessment Author Pressure Ulcer Prevention Interventions Keep skin clean and dry (Sensory Perception/Moistur e) 04/10/2025 8:50 AM TYSONT Alban Aragon RN 2 Nurse Skin Assessment Jessica PAL 03/31/2025 1:30 P M CDT Brittnee Kennedy [...] hopeless Not at all 02/20/2025 6:00 AM TYSONT Juan Ramon Stern RN Trouble falling or staying asleep, or [...] Skin Condition/Temp Warm;Dry 07/04/2025 1 0:00 AM Norbert Barcenas Skin Integrity Surgical incision 07/04/2025 10: 00 AM Norbert Barcenas Skin Turgor Non-tenting 07/04/2025 9:07 AM TYSONT Norbert Mcduffie Integumentary Additional Assessments Yes-Sinan 04/10/2025 8:50 AM Alban Crowe RN Integumentary (WDL) X 07/04/2025 1 0:00 AM CDT Norbert Mcduffie Skin Location coccyx 04/10/2025 8:50 AM Alban Crowe RN * Wound (LDAs) Question Answer Date [...] BP Method Automatic 07/04/2025 9:07 AM CDT Norbret Huizar * Question Answer Date of Assessment [...] 1 03/31/2025 12:18 PM Vanessa Agarwal RN MANAGER SPECIALTY Evaluation Needed 2 03/31/2025 12:18 PM Vanessa [...] of Assistance Moderate assist 04/09/2025 11:04 PM TYSONT Agueda Clayton RN Toileting: Assistance with Bedside commode 04/10/2025 12:10 PM Rylee Montgomery EMT Toileting: Level of assistance Moderate 04/10/2025 12:10 PM TYSONT Rylee Garvin EMT Reason not bathed/showered Bath not due on this shift 03/31/2025 7:45 PM TYSONT Dorita Marroquin, DEMARCO Perineal Care Venita Care 04/10/2025 3:27 AM TYSONT Agueda Clayton RN Linens Absorbent pad changed 04/09/2025 3:22 AM TYSONT Agueda Clayton RN Bath Bathed/showered with chlorhexidine (CHG) 04/09/2025 [...] in reverse order 4 04/02/2025 8:14 AM TYSONT Kindra Vazquez OT Repeat the name and address I asked you to remember 4 04/02/2025 8:14 AM Kindra Borjas OT Repeat this name and address after me Faheem Hernandez [address] [place] [address] 04/02/2025 8:14 AM TYSONT Kindra Vazquez OT Short Blessed Total Score 15 04/02/2025 8:14 AM CDT Kindra Vazquez OT Short Blessed Comments impaired 8:14 AM CDT Kindra Vazquez OT * Question Answer Entry Date Author Level of Consciousness Alert;Awake;Respo nds to voice 07/04/2025 10:00 AM CDT Norbert Mcduffie Orientation Oriented X4 (person, place, time, situation) 07/04/2025 10:00 AM TYSONT Norbert Mcduffie Neuro (WDL) X 07/04/2025 10:00 AM TYSONT Norbert Mcduffie documented in this encounter Plan of Treatment Not on file documented as of this encounter Procedures Procedure Name Priority Date/Time Associated Diagnosis Comments BREAST IMAGING MG DIAGNOSTIC OUTSIDE REFERENCE Routine 04/09/2015 12:05 AM CDT documented in this encounter Results * Breast Imaging Diagnostic Outside Reference (04/09/2015 12:05 AM CDT) Impressions RAD_MAMMO_[facility] - 02/02/2022 3:04 PM CDT These images are for Reference purposes only and have not been reviewed by [facility]. There will be no report generated by a [facility] Radiologist. Narrative RAD_MAMMO_BJ - 02/02/2022 3:04 PM CDT EXAMINATION: Images For Reference Purposes Only us Patricia Powell NP IMG MAMMO PROCEDURES Fin al Result RAD_MAMMO_[facility] documented in this encounter Visit Diagnoses Not on filedocumented in this encounter Additional Health Concerns Infection Onset Date Last Indicated Resolved Time COVID: Suspected 11/13/2021 11/13/2021 11/13/2021 2:41 PM CLIENT SERVICE SUPERVISOR C. difficile suspected 02/19/2025 02/19/202502/21 2:35 PM CDT Ring Surveillance: C. auris Comment:[id number] 02/20/2025 02/20/2025 02/27/2025 7:26 PM C DT C. difficile suspected 03/31/2025 03/31/202503/31 7:21 PM CDT VRE 03/31/2025 03/31/2025 documented as of this encounter
--- OUTSIDE RECORDS SUMMARY | 2015-04-08 23:05 | XMS_ITS | Encounter Summary ---
Author Organization [facility] Healthcare Address [address] [place] [address] Care Team Providers Care Lure Maker Name Role Phone Unavailable Primary Care Provider Unavailabl e Reason for Visit * Diagnostic Imaging (Routine) - Closed Specialty Diagnoses / Procedures Referred By Chasity vanegas Referred To Contact Procedures Breast Imaging Diagnostic Outside Reference Patricia Powell NP Phone: tel: fax: Referral ID Status Reason Start Date Expiration Date Visits Re quested Visits Authorized [id number] Closed 02/02/2022 03/04/2023 1 1 Encounter Details Date Type Department Care Team (Late st Contact Info) Description 04/09/2015 12:05 AM CDT Hospital Encounter [facility]) [address] [place] [id number] Social History Tobacco Use Types Packs/Day Years Used Date Smoking Tobacco: Former Cigarettes 0.5 19 1 3 - 1991 Passive Smoke Exposure: Past Smokeless Tobacco: Never Alcohol Use Standard Drinks/Week Comments Yes 0 (1 standard drink = 0.6 oz pur e alcohol) rarely [facility] Utilities Answer Date Recorded In [...] often do you attend chur ch or pentecostalism services? Patient unable to answer 04/01/2025 Do you belong to any clubs o r organizations such as taoism groups, unions, fraternal or athletic groups, or [...] were you homeless or living in a chcf (including now)? 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 0 03/31/2025 12:18 PM Vanessa Agarwal RN [...] immobile/non-ambul atory or infant 11/15/2021 2:25 PM INSPECTION SUPERVISOR Tete Chinchilla RN Morse Fall Risk [...] Assessment Author Left arm 07/26/2025 3:20 PM INSPECTION SUPERVISOR Vidhya Rodriguez CMA * Question Answer [...] and gait training provided 11/14/2021 11:36 AM INSPECTION SUPERVISOR Lucina Oliveros, PT * B.M.A.T. - [...] of Assessment Author 77 07/29/2023 8:54 AM INSPECTION SUPERVISOR Jeovanny Cota, WILFREDO * Pressure Injury [...] one occasion? Never 06/26/2025 10:04 AM Tina Abdalal RN * Fall Risk Assessment Tool - [...] Arms/Hands Both 03/31/2025 12:18 P M Vanessa Agarwla RN Dominant hand? Right 03/31/2025 12:18 PM Vanessa Boone RN Decline in ADLs in last 2 weeks? Yes (Comment) 03/31/2025 12:18 PM Vanessa Agarwal RN * Therapy Consults Question Answer Date of Assessment Author PT Evaluation Needed 1 03/31/2025 12:18 PM Vanessa Agarwal RN OT Evaluation Needed 1 03/31/2025 12:18 PM Vanessa Agarwal RN SOLID STATE TESTER Evaluation Needed 2 03/31/2025 12:18 PM Vanessa [...] name and address after me Faheem Hernandez [address] [place] [address] 04/02/2025 8:14 AM TYSONT Kindra Vazquez OT [...] have not been reviewed by [facility]. There will be no report generated by a [facility] Radiologist. Narrative RAD_MAMMO_BJ - 02/02/2022 3:04 PM CDT EXAMINATION: Images For Reference Purposes Only us Patricia Powell NP IMG MAMMO PROCEDURES Fin al Result RAD_MAMMO_[facility] documented in this encounter Visit Diagnoses Not on filedocumented in this encounter Additional Health Concerns Infection Onset Date Last Indicated Resolved Time COVID: Suspected 11/13/2021 11/13/2021 11/13/2021 2:41 PM INSPECTION SUPERVISOR C. difficile suspected 02/19/2025 02/19/202502/21 2:35 PM CDT Ring Surveillance: C. auris Comment:[id number] 02/20/2025 02/20/2025 02/27/2025 7:26 PM C DT C. difficile suspected 03/31/2025 03/31/202503/31 7:21 PM CDT VRE 03/31/2025 03/31/2025 documented as of this encounter
--- OUTSIDE RECORDS SUMMARY | 2016-11-05 | XMS_ITS | Encounter Summary ---
Author Organization [facility] Healthcare Address [address] [place] [address] Care Team Providers Care Tissue Inserter Name Role Phone Unavailable Primary Care Provider Unavailabl e Reason for Visit * Diagnostic Imaging (Routine) - Closed Specialty Diagnoses / Procedures Referred By Chasity t Referred To Contact Procedures Breast Imaging Screening Outside Reference Patricia Powell NP Phone: tel: fax: Referral ID Status Reason Start Date Expiration Date Visits Re quested Visits Authorized [id number] Closed 02/02/2022 03/04/2023 1 1 Encounter Details Date Type Department Care Team (Late st Contact Info) Description 11/05/2016 Hospital Encounter [facility] [address] [place] [address] Social History Tobacco Use Types Packs/Day Years Used Date Smoking Tobacco: Former Cigarettes 0.5 19 1 3 - 1991 Passive Smoke Exposure: Past Smokeless Tobacco: Never Alcohol Use Standard Drinks/Week Comments Yes 0 (1 standard drink = 0.6 oz pur e alcohol) rarely [facility] Utilities Answer Date Recorded In the past [...] often do you attend chur ch or faith services? 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 Eye project archivist? 0 03/31/2025 12:18 PM Vanessa Agarwal RN CAGE SCORE: 2 or Greater = Positive 0 03/31/2025 12:18 PM Vanessa Agarwal RN * One or more falls in the last year Answer Date of Assessment Author 2 05/07/2025 11:09 AM TYSONT Maribel Morales [email or web address] * How many times? Answer Date of Assessment Author 2 or more 05/07/2025 11:09 AM CDYoel Morales E [email or web address] * Was the patient injured [...] 11:09 AM CDYoel Morales E [email or web address] * Needs to push with [...] Gilbert RN * Difference in Last Two Sinna Scores Answer Date of Assessment Author -4 [...] risk-patient immobile/non-ambul atory or 11/15/2021 2:25 PM NUCLEAR WEAPONS SPECIALIST Tete Chinchilla RN Morse Fall Risk Score [...] Assessment Author Left arm 07/26/2025 3:20 PM NUCLEAR WEAPONS SPECIALIST Vidhya Rodriguez CMA * Question Answer Date of Assessment Author Arterial Line MAP (mmHg) 86 04/29/2020 6:00 PM CDT Albino Parekh, DEMARCO * Fall Risk Interventions Question Answer Date [...] and gait training provided 11/14/2021 11:36 AM NUCLEAR WEAPONS SPECIALIST Lucina Oliveros, PT * B.M.A.T. - Bedside [...] of Assessment Author 77 07/29/2023 8:54 AM NUCLEAR WEAPONS SPECIALIST Jeovanny Cota, RMA * Pressure Injury Prevention Question Answer Date [...] 1 03/31/2025 12:18 PM Vanessa Agarwal RN PSYCHIATRIC SPECIALIST Evaluation Needed 2 03/31/2025 12:18 PM Vanessa [...] is it now? 3 04/02/2025 8:14 AM TYSONT Kindra Vazquez OT Without looking at the clock, tell me what time it is 0 04/02/2025 8:14 AM Kindra Borjas OT Count aloud backwards from 20-1 0 04/02/2025 8:14 AM Kindra Borjas OT Say the months of the year backwards in reverse order 4 04/02/2025 8:14 AM Kindra Borjas OT Repeat the name and address I asked you to remember 4 04/02/2025 8:14 AM Kindra Borjas OT Repeat this name and address after me Faheem Hernandez [address] [place] [address] 04/02/2025 8:14 AM Kindra Borjas OT Short Blessed Total Score 15 04/02/2025 8:14 AM Kindra Borjas OT Short Blessed Comments impaired 8:14 AM Kindra Borjas OT * Question Answer Entry Date Author Level of Consciousness Alert;Awake;Respo nds to voice 07/04/2025 10:00 AM Norbert Barcenas Orientation Oriented X4 (person, place, time, situation) 07/04/2025 10:00 AM Norbert Barcenas Neuro (WDL) X 07/04/2025 10:00 AM Norbert Barcenas documented in this encounter Plan of Treatment Not on file documented as of this encounter Procedures Procedure Name Priority Date/Time Associated Diagnosis Comments BREAST IMAGING MG SCREENING OUTSIDE REFERENCE Routine 11/05/2016 12:00 AM NUCLEAR WEAPONS SPECIALIST documented in this encounter Results * Breast Imaging Screening Outside Reference (11/05/2016 12:00 AM NUCLEAR WEAPONS SPECIALIST) Impressions RAD_MAMMO_GHISLAINE - 02/02/2022 3:04 PM CDT These images are for Reference purposes only and have not been reviewed by [facility]. There will be no report generated by a [facility] Radiologist. Narrative RAD_MAMMOIZAIAH - 02/02/2022 3:04 PM CDT EXAMINATION: Images For Reference Purposes Only us Patricia Powell MEDIA RELATIONS SPECIALIST IMG MAMMO PROCEDURES Fin al Result [facility]_MAMMJayda_[facility] documented in this encounter Visit Diagnoses Not on filedocumented in this encounter Additional Health Concerns Infection Onset Date Last Indicated Resolved Time COVID: Suspected 11/13/2021 11/13/2021 11/13/2021 2:41 PM NUCLEAR WEAPONS SPECIALIST C. difficile suspected 02/19/2025 02/19/202502/21 2:35 PM CDT Ring Surveillance: C. auris Comment:[id number] 02/20/2025 02/20/2025 02/27/2025 7:26 PM C DT C. difficile suspected 03/31/2025 03/31/202503/31 7:21 PM CDT VRE 03/31/2025 03/31/2025 documented as of this encounter
--- OUTSIDE RECORDS SUMMARY | 2016-11-05 | XMS_ITS | Encounter Summary ---
Author Organization [facility] Healthcare Address [address] [place] [address] Care Team Providers Care Campus Ambassador Name Role Phone Unavailable Primary Care Provider Unavailabl e Reason for Visit * Diagnostic Imaging (Routine) - Closed Specialty Diagnoses / Procedures Referred By Chasity t Referred To Contact Procedures Breast Imaging Screening Outside Reference Patricia Powell NP Phone: tel: fax: Referral ID Status Reason Start Date Expiration Date Visits Re quested Visits Authorized [id number] Closed 02/02/2022 03/04/2023 1 1 Encounter Details Date Type Department Care Team (Late st Contact Info) Description 11/05/2016 Hospital Encounter [facility] [address] [place] [address] Social History Tobacco Use Types Packs/Day Years Used Date Smoking Tobacco: Former Cigarettes 0.5 19 1 3 - 1991 Passive Smoke Exposure: Past Smokeless Tobacco: Never Alcohol Use Standard Drinks/Week Comments Yes 0 (1 standard drink = 0.6 oz pur e alcohol) rarely [facility] Utilities Answer Date Recorded In the past [...] often do you attend chur ch or mandaen services? 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 0 03/31/2025 12:18 PM Vanessa Agarwal RN [...] (mmHg) 71 07/04/2025 10:00 AM CDT Norbert Moshre * Jaqueline Fall Risk Question Answer Date [...] risk-patient immobile/non-ambul atory or 11/15/2021 2:25 PM RN ADMISSIONS Tete Chinchilla RN Morse Fall Risk Score [...] Assessment Author Left arm 07/26/2025 3:20 PM RN ADMISSIONS Vidhya Rodriguez CMA * Question Answer Date of Assessment Author Arterial Line MAP (mmHg) 86 04/29/2020 6:00 PM CDT Albino Parekh, DEMARCO * Fall Risk Interventions Question Answer Date of Assessment Author All Low Fall Interventions Applied Yes 07/04/2025 6:21 AM CDT Leno Mullins RN All Low Fall Interventions EXCEPT: Non-skid footwear/socks 04/09/2025 10:50 PM CDT Augeda Clayton RN All Moderate Fall Interventions Applied [...] and gait training provided 11/14/2021 11:36 AM RN ADMISSIONS Lucina Oliveros, PT * B.M.A.T. - Bedside [...] of Assessment Author 77 07/29/2023 8:54 AM RN ADMISSIONS Jeovanny Cota, RMA * Pressure Injury Prevention [...] RN Mood Content 04/06/2025 9:00 AM CDT Rehna Corona RN * Question Answer Date of [...] 1 03/31/2025 12:18 PM Vanessa Agarwal RN HYDROGEN TREATER Evaluation Needed 2 03/31/2025 12:18 PM Vanessa [...] Assessment Author Somewhat difficult 01/08/2025 12:00 PM Teet Elliott RN * Over the past 2 [...] name and address after me Faheem Hernandez [address] [place] [address] 04/02/2025 8:14 AM Kindra Borjas OT Short [...] SCREENING OUTSIDE REFERENCE Routine 11/05/2016 12:00 AM RN ADMISSIONS documented in this encounter Results * Breast Imaging Screening Outside Reference (11/05/2016 12:00 AM RN ADMISSIONS) Impressions RAD_MAMMO_GHISLAINE - 02/02/2022 3:04 PM CDT These images are for Reference purposes only and have not been reviewed by [facility]iology. There will be no report generated by a [facility] Radiologist. Narrative RAD_MAMMOIZAIAH - 02/02/2022 3:04 PM CDT EXAMINATION: Images For Reference Purposes Only us Patricia Powell GAMB CUTTER IMG MAMMO PROCEDURES Fin al Result JYOTI_MAMMJayda_BJH documented in this encounter Visit Diagnoses Not on filedocumented in this encounter Additional Health Concerns Infection Onset Date Last Indicated Resolved Time COVID: Suspected 11/13/2021 11/13/2021 11/13/2021 2:41 PM RN ADMISSIONS C. difficile suspected 02/19/2025 02/19/202502/21 2:35 PM CDT Ring Surveillance: C. auris Comment:[id number] 02/20/2025 02/20/2025 02/27/2025 7:26 PM C DT C. difficile suspected 03/31/2025 03/31/202503/31 7:21 PM CDT VRE 03/31/2025 03/31/2025 documented as of this encounter
--- OUTSIDE RECORDS SUMMARY | 2016-11-11 | XMS_ITS | Encounter Summary ---
Author Organization [facility] Healthcare Address [address] [place] [address] Care Team Providers Care Pre Owned Sales Manager Name Role Phone Unavailable Primary Care Provider Unavailabl e Reason for Visit * Diagnostic Imaging (Routine) - Closed Specialty Diagnoses / Procedures Referred By Chasity t Referred To Contact Procedures Breast Imaging US Outside Reference Patricia Powell NP Phone: tel: fax: Referral ID Status Reason Start Date Expiration Date Visits Re quested Visits Authorized [id number] Closed 02/02/2022 03/04/2023 1 1 Encounter Details Date Type Department Care Team (Late st Contact Info) Description 11/11/2016 Hospital Encounter [facility] Radiology [facility] [address] [place] [address] Social History Tobacco Use Types Packs/Day Years Used Date Smoking Tobacco: Former Cigarettes 0.5 19 1 3 - 1991 Passive Smoke Exposure: Past Smokeless Tobacco: Never Alcohol Use Standard Drinks/Week Comments Yes 0 (1 standard drink = 0.6 oz pur e alcohol) rarely [facility] Utilities Answer Date Recorded In the past [...] often do you attend chur ch or jehovah's witness services? Patient unable to answer 04/01/2025 Do you belong to any clubs o r organizations such as jehovah's witness groups, unions, fraternal or athletic groups, or [...] time in the past [address] 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 0 03/31/2025 12:18 PM Vanessa Agarwal [...] of Assessment Author 0 05/07/2025 11:09 AM CDoYel Morales E [email or web address] * Worried about falling Answer Date of Assessment Author 0 05/07/2025 11:09 AM CDYoel Moraels E [email or web address] * Takes medicine to sleep [...] Intravenous Therapy/Heparin/Saline Lock 20 07/04/2025 6:21 AM Lneo Bull RN Gait/Transferring 0 07/04/2025 6:21 AM TYSONT Leno Mullins RN Mental Status 0 07/04/2025 6:21 AM TYSONT Leno Stevens RN Auto Low/High - if selected proceed to interventions (retired) Low risk-patient immobile/non-ambul atory or 11/15/2021 2:25 PM RECREATION ESTABLISHMENT MANAGER Tete Chinchilla RN Morse Fall Risk Score [...] Assessment Author Left arm 07/26/2025 3:20 PM RECREATION ESTABLISHMENT MANAGER Vidhya Rodriguez CMA * Question Answer Date [...] and gait training provided 11/14/2021 11:36 AM RECREATION ESTABLISHMENT MANAGER Lucina Oliveros, PT * B.M.A.T. - Bedside [...] of Assessment Author 77 07/29/2023 8:54 AM RECREATION ESTABLISHMENT MANAGER Jeovanny Cota, RMA * Pressure Injury Prevention [...] Exception(s) preop 01/07/20 11:42 AM TYSONT Som aJne RN * Question Answer Date of Assessment [...] 1 03/31/2025 12:18 PM Vanessa Agarwal RN TWINE REELING MACHINE OPERATOR Evaluation Needed 2 03/31/2025 12:18 PM Vanessa [...] of Assistance Moderate assist 04/09/2025 11:04 PM gAueda Tunrer, DEMARCO Toileting: Assistance with Bedside commode 04/10/2025 [...] name and address after me Faheem Hernandez [address] [place] [address] 04/02/2025 8:14 AM Kindra Borjas OT Short Blessed Total Score 15 04/02/2025 8:14 AM CDKindra Worrell OT Short Blessed Comments impaired 8:14 AM CDKindra Worrell OT * Question Answer Entry Date Author [...] Diagnosis Comments BREAST IMAGING US OUTSIDE REFERENCE Routine 11/11/2016 12:00 AM RECREATION ESTABLISHMENT MANAGER documented in this encounter Results * Breast Imaging US Outside Reference (11/11/2016 12:00 AM RECREATION ESTABLISHMENT MANAGER) Impressions RAD_MAMMOIZAIAH - 02/02/2022 3:03 PM CDT These images are for Reference purposes only and have not been reviewed by [facility]. There will be no report generated by a [facility] Radiologist. Narrative RADShannaMAMMOIZAIAH - 02/02/2022 3:03 PM CDT EXAMINATION: Images For Reference Purposes Only us Patricia Powell JUNIOR BUYER IMG MAMMO PROCEDURES Fin al Result JYOTI_MAMMJayda_BJH documented in this encounter Visit Diagnoses Not on filedocumented in this encounter Additional Health Concerns Infection Onset Date Last Indicated Resolved Time COVID: Suspected 11/13/2021 11/13/2021 11/13/2021 2:41 PM RECREATION ESTABLISHMENT MANAGER C. difficile suspected 02/19/2025 02/19/202502/21 2:35 PM CDT Ring Surveillance: C. auris Comment:[id number] 02/20/2025 02/20/2025 02/27/2025 7:26 PM C DT C. difficile suspected 03/31/2025 03/31/202503/31 7:21 PM CDT VRE 03/31/2025 03/31/2025 documented as of this encounter
--- OUTSIDE RECORDS SUMMARY | 2016-11-11 | XMS_ITS | Encounter Summary ---
Author Organization [facility] Healthcare Address [address] [place] [address] Care Team Providers Care Cobbler Sole Name Role Phone Unavailable Primary Care Provider Unavailabl e Reason for Visit * Diagnostic Imaging (Routine) - Closed Specialty Diagnoses / Procedures Referred By Chasity t Referred To Contact Procedures Breast Imaging US Outside Reference Patricia Powell NP Phone: tel: fax: Referral ID Status Reason Start Date Expiration Date Visits Re quested Visits Authorized [id number] Closed 02/02/2022 03/04/2023 1 1 Encounter Details Date Type Department Care Team (Late st Contact Info) Description 11/11/2016 Hospital Encounter [facility] Radiology [facility] [address] [place] [address] Social History Tobacco Use Types Packs/Day Years Used Date Smoking Tobacco: Former Cigarettes 0.5 19 1 3 - 1991 Passive Smoke Exposure: Past Smokeless Tobacco: Never Alcohol Use Standard Drinks/Week Comments Yes 0 (1 standard drink = 0.6 oz pur e alcohol) rarely [facility] Utilities Answer Date Recorded In [...] often do you attend chur ch or taoist services? Patient unable to answer 04/01/2025 Do you belong to any clubs o r organizations such as anabaptism groups, unions, fraternal or athletic groups, or [...] any time in the past 12 m [facility], were you homeless or living in a residential (including now)? 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 0 03/31/2025 12:18 PM Vanessa Agarwal RN [...] risk-patient immobile/non-ambul atory or 11/15/2021 2:25 PM CAREER GUIDANCE COUNSELOR Tete Chinchilla RN Morse Fall Risk Score [...] Assessment Author Left arm 07/26/2025 3:20 PM CAREER GUIDANCE COUNSELOR Vidhya Rodriguez CMA * Question Answer Date [...] and gait training provided 11/14/2021 11:36 AM CAREER GUIDANCE COUNSELOR Lucina Oliveros, PT * B.M.A.T. - Bedside [...] of Assessment Author 77 07/29/2023 8:54 AM CAREER GUIDANCE COUNSELOR Jeovanny Cota, RMA * Pressure Injury Prevention [...] for ethnicity 07/04/2025 10:00 AM CDT Norbert Mcdfufie Skin Condition/Temp Warm;Dry 07/04/2025 1 0:00 AM CDT Norbert Mcduffie Skin Integrity Surgical incision 07/04/2025 10: 00 AM TYSONT Norbert Mcduffie Skin Turgor Non-tenting 07/04/2025 9:07 AM CDT Norbert Mcduffie Integumentary Additional Assessments Yes-Isnan 04/10/2025 8:50 AM CDT Alban Aragon RN [...] 1 03/31/2025 12:18 PM Vanessa Agarwal RN WET MIXER Evaluation Needed 2 03/31/2025 12:18 PM Vanessa [...] name and address after me Faheem Hernandez [address] [place] [address] 04/02/2025 8:14 AM Kindra Borjas OT Short [...] US OUTSIDE REFERENCE Routine 11/11/2016 12:00 AM CAREER GUIDANCE COUNSELOR documented in this encounter Results * Breast Imaging US Outside Reference (11/11/2016 12:00 AM CAREER GUIDANCE COUNSELOR) Impressions RAD_MAMMOIZAIAH - 02/02/2022 3:03 PM CDT These images are for Reference purposes only and have not been reviewed by [facility] Radiology. There will be no report generated by a [facility] Radiologist. Narrative RADShannaMAMMOIZAIAH - 02/02/2022 3:03 PM CDT EXAMINATION: Images For Reference Purposes Only us Patricia Powell VAT WASHER IMG MAMMO PROCEDURES Fin al Result JYOTI_MAMMJayda_BJH documented in this encounter Visit Diagnoses Not on filedocumented in this encounter Additional Health Concerns Infection Onset Date Last Indicated Resolved Time COVID: Suspected 11/13/2021 11/13/2021 11/13/2021 2:41 PM CAREER GUIDANCE COUNSELOR C. difficile suspected 02/19/2025 02/19/202502/21 2:35 PM CDT Ring Surveillance: C. auris Comment:[id number] 02/20/2025 02/20/2025 02/27/2025 7:26 PM C DT C. difficile suspected 03/31/2025 03/31/202503/31 7:21 PM CDT VRE 03/31/2025 03/31/2025 documented as of this encounter
--- OUTSIDE RECORDS SUMMARY | 2016-11-11 00:05 | XMS_ITS | Encounter Summary ---
Author Organization [facility] Healthcare Address [address] [place] [address] Care Team Providers Care Patternmaker Pressure Cast Name Role Phone Unavailable Primary Care Provider Unavailabl e Reason for Visit * Diagnostic Imaging (Routine) - Closed Specialty Diagnoses / Procedures Referred By Chasity t Referred To Contact Procedures Breast Imaging Diagnostic Outside Reference Patricia Powell NP Phone: tel: fax: Referral ID Status Reason Start Date Expiration Date Visits Re quested Visits Authorized [id number] Closed 02/02/2022 03/04/2023 1 1 Encounter Details Date Type Department Care Team (Late st Contact Info) Description 11/11/2016 12:05 AM LURE MAKER Hospital Encounter [facility] [address] [place] [id number] Social History Tobacco Use Types Packs/Day Years Used Date Smoking Tobacco: Former Cigarettes 0.5 19 1 3 - 1991 Passive Smoke Exposure: Past Smokeless Tobacco: Never Alcohol Use Standard Drinks/Week Comments Yes 0 (1 standard drink = 0.6 oz pur e alcohol) rarely [facility] Utilities Answer Date Recorded In the [...] often do you attend chur ch or yazidism services? Patient unable to answer 04/01/2025 Do [...] any time in the past 12 m [facility], were you homeless or living in a fpc (including now)? 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 Eye roguer? 0 03/31/2025 12:18 PM Vanessa Agarwal RN [...] immobile/non-ambul atory or infant 11/15/2021 2:25 PM LURE MAKER Tete Chinchilla RN Morse Fall Risk Score [...] Assessment Author Left arm 07/26/2025 3:20 PM LURE MAKER Vidhya Rodriguez CMA * Question Answer Date [...] and gait training provided 11/14/2021 11:36 AM LURE MAKER Lucina Oliveros, PT * B.M.A.T. - Bedside [...] of Assessment Author 77 07/29/2023 8:54 AM LURE MAKER Jeovanny Cota, Jeovanny * Pressure Injury Prevention Question Answer Date [...] in reach;bed low/locked 01/05/2025 1:06 PM Pallavi iVllela RN * Integumentary Question Answer Date of Assessment Author Skin Color Appropriate for ethnicity 07/04/2025 10:00 AM TYSONT Norbert Mcduffie Skin Condition/Temp Warm;Dry 07/04/2025 1 0:00 AM TYSONT Norbert Mcduffie Skin Integrity Surgical incision 07/04/2025 10: 00 AM TYSONT Norbert Mcduffie Skin Turgor Non-tenting 07/04/2025 9:07 AM TYSONT Norbert Mcduffie Integumentary Additional Assessments Yes-Isnan 04/10/2025 8:50 AM TYSONT Alban Aragon RN [...] 1 03/31/2025 12:18 PM Vanessa Agarwal RN SORTER PACKER Evaluation Needed 2 03/31/2025 12:18 PM Vanessa [...] Care Venita Care 04/10/2025 3:27 AM Agueda Turner RN Linens Absorbent pad changed 04/09/2025 3:22 [...] reverse order 4 04/02/2025 8:14 AM Kindra Bojras OT Repeat the name and address I asked you to remember 4 04/02/2025 8:14 AM Kindra Borjas OT Repeat this name and address after me Faheem Hernandez [address] [place] [address] 04/02/2025 8:14 AM Kindra Borjas OT Short [...] DIAGNOSTIC OUTSIDE REFERENCE Routine 11/11/2016 12:05 AM LURE MAKER documented in this encounter Results * Breast Imaging Diagnostic Outside Reference (11/11/2016 12:05 AM LURE MAKER) Impressions RAD_MAMMO_BJH - 02/02/2022 3:05 PM CDT [...] COVID: Suspected 11/13/2021 11/13/2021 11/13/2021 2:41 PM LURE MAKER C. difficile suspected 02/19/2025 02/19/202502/21 2:35 PM CDT Ring Surveillance: C. auris Comment:[id number] 02/20/2025 02/20/2025 02/27/2025 7:26 PM C DT C. difficile suspected 03/31/2025 03/31/202503/31 7:21 PM CDT VRE 03/31/2025 03/31/2025 documented as of this encounter
--- OUTSIDE RECORDS SUMMARY | 2016-11-11 00:05 | XMS_ITS | Encounter Summary ---
Author Organization [facility] Healthcare Address [address] [place] [address] Care Team Providers Care Materials Tech Name Role Phone Unavailable Primary Care Provider Unavailabl e Reason for Visit * Diagnostic Imaging (Routine) - Closed Specialty Diagnoses / Procedures Referred By Chasity t Referred To Contact Procedures Breast Imaging Diagnostic Outside Reference Patricia Powell NP Phone: tel: fax: Referral ID Status Reason Start Date Expiration Date Visits Re quested Visits Authorized [id number] Closed 02/02/2022 03/04/2023 1 1 Encounter Details Date Type Department Care Team (Late st Contact Info) Description 11/11/2016 12:05 AM DIAMOND SETTER APPRENTICE Hospital Encounter [facility]iology [facility] [address] [place] [id number] Social History Tobacco Use Types Packs/Day Years Used Date Smoking Tobacco: Former Cigarettes 0.5 19 1 3 - 1991 Passive Smoke Exposure: Past Smokeless Tobacco: Never Alcohol Use Standard Drinks/Week Comments Yes 0 (1 standard drink = 0.6 oz pur e alcohol) rarely [facility] Utilities Answer Date Recorded In the [...] often do you attend chur ch or taoism services? Patient unable to answer 04/01/2025 Do [...] in the past [address] [facility], were you homeless or living in a nursing home (including now)? 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 Eye access nurse? 0 03/31/2025 12:18 PM Vanessa Agarwal RN [...] immobile/non-ambul atory or infant 11/15/2021 2:25 PM DIAMOND SETTER APPRENTICE Tete Chinchilla RN Morse Fall Risk Score [...] Assessment Author Left arm 07/26/2025 3:20 PM DIAMOND SETTER APPRENTICE Vidhya Rodriguez CMA * Question Answer Date [...] and gait training provided 11/14/2021 11:36 AM DIAMOND SETTER APPRENTICE Lucina Oliveros, PT * B.M.A.T. - Bedside [...] of Assessment Author 77 07/29/2023 8:54 AM DIAMOND SETTER APPRENTICE Jeovanny Cota, Jeovanny * Pressure Injury Prevention [...] Warm;Dry 07/04/2025 1 0:00 AM TYSONT Norbert Mdcuffie Skin Integrity Surgical incision 07/04/2025 10: 00 [...] 1 03/31/2025 12:18 PM Vanessa Agarwal RN REFRIGERATION MECHANIC Evaluation Needed 2 03/31/2025 12:18 PM Vanessa [...] name and address after me Faheem Hernandez [address] [place] [address] 04/02/2025 8:14 AM Kindra Borjas OT Short [...] DIAGNOSTIC OUTSIDE REFERENCE Routine 11/11/2016 12:05 AM DIAMOND SETTER APPRENTICE documented in this encounter Results * Breast Imaging Diagnostic Outside Reference (11/11/2016 12:05 AM DIAMOND SETTER APPRENTICE) Impressions RAD_MAMMO_[facility]JH - 02/02/2022 3:05 PM CDT These images are for Reference purposes only and have not been reviewed by [facility]iology. There will be no report generated by a [facility] Radiologist. Narrative RAD_MAMMO_BJH - 02/02/2022 3:05 PM CDT EXAMINATION: Images For Reference Purposes Only us Patricia Powell NP IMG MAMMO PROCEDURES Fin al Result RAD_MAMMO_[facility] documented in this encounter Visit Diagnoses Not on filedocumented in this encounter Additional Health Concerns Infection Onset Date Last Indicated Resolved Time COVID: Suspected 11/13/2021 11/13/2021 11/13/2021 2:41 PM DIAMOND SETTER APPRENTICE C. difficile suspected 02/19/2025 02/19/202502/21 2:35 PM CDT Ring Surveillance: C. auris Comment:[id number] 02/20/2025 02/20/2025 02/27/2025 7:26 PM C DT C. difficile suspected 03/31/2025 03/31/202503/31 7:21 PM CDT VRE 03/31/2025 03/31/2025 documented as of this encounter
--- OUTSIDE RECORDS SUMMARY | 2018-12-27 23:00 | XMS_ITS | Encounter Summary ---
Author Organization [facility] Healthcare Address [address] [place] [address] Care Team Providers Care Student Support Advisor Name Role Phone Mike Douglass MD Primary Care Provider Reason for Visit * Diagnostic Imaging (Routine) - Closed Specialty Diagnoses / Procedures Referred By Chasity vanegas Referred To Contact Procedures Breast Imaging Screening Outside Reference Patricia Powell NP Phone: tel: fax: Referral ID Status Reason Start Date Expiration Date Visits Re quested Visits Authorized [id number] Closed 02/02/2022 03/04/2023 1 1 Encounter Details Date Type Department Care Team (Late st Contact Info) Description 12/28/2018 Hospital Encounter [facility] [address] [place] [id number] Social History Tobacco Use Types Packs/Day Years Used Date Smoking Tobacco: Former Cigarettes 0.5 19 1 973 - 1991 Passive Smoke Exposure: Past Smokeless Tobacco: Never Alcohol Use Standard Drinks/Week Comments Yes 0 (1 standard drink = 0.6 oz pur e alcohol) rarely [facility] Utilities Answer Date Recorded In the past 12 months has [employer] electric, gas, oil, or water company threatened [...] any time in the past 12 m [facility], were you homeless or living in a correction (including now)? 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 0 03/31/2025 12:18 PM Vanessa Agarwal RN [...] 118/64 04/29/2020 6:00 PM CDT Albino Salazar, DEAMRCO BP Method Automatic 07/04/2025 9:07 AM CDT [...] immobile/non-ambul atory or infant 11/15/2021 2:25 PM TUBE MAKER Tete Chinchilla, RN Parsons Fall Risk Score [...] Assessment Author Left arm 07/26/2025 3:20 PM TUBE MAKER Vidhya Rodriguez CMA * Question Answer [...] and gait training provided 11/14/2021 11:36 AM TUBE MAKER Lucina Oliveros, PT * B.M.A.T. - [...] of Assessment Author 77 07/29/2023 8:54 AM TUBE MAKER Jeovanny Cota, WILFREDO * Pressure Injury Prevention [...] Assessment Author Left arm 07/26/2025 3:20 PM TUBE MAKER Vidhya Rodriguez CMA * Fall Risk Interventions [...] 1 03/31/2025 12:18 PM Vanessa Agarwal RN GOLF TOURNAMENT CONSULTANT Evaluation Needed 2 03/31/2025 12:18 PM Vanessa [...] name and address after me Faheem Hernandez [address] [place] [address] 04/02/2025 8:14 AM TYSONT Kindra Vazquez OT Short Blessed Total Score 15 04/02/2025 8:14 AM CDT Kindra Vazquez OT Short Blessed Comments impaired 8:14 AM CDT Kindra Vazquez OT * Question Answer Entry Date Author Level of Consciousness Alert;Awake;Respo nds to voice 07/04/2025 10:00 AM TYSONT Norbert Mcduffie Orientation Oriented X4 (person, place, time, situation) 07/04/2025 10:00 AM CDT Norbert Mcduffie Neuro (WDL) X 07/04/2025 10:00 AM CDT Norbert Mcduffie documented in this encounter Plan of Treatment Not on file documented as of this encounter Procedures Procedure Name Priority Date/Time Associated Diagnosis Comments BREAST IMAGING MG SCREENING OUTSIDE REFERENCE Routine 12/28/2018 12:00 AM CDT documented in this encounter Results * Breast Imaging Screening Outside Reference (12/28/2018 12:00 AM CDT) Impressions [facility]MO[facility] - 02/02/2022 3:04 PM CDT These images are for Reference purposes only and have not been reviewed by [facility] Radiology. There will be no report generated by a [facility] Radiologist. Narrative [facility]MAMMO[facility] - 02/02/2022 3:04 PM CDT EXAMINATION: Images For Reference Purposes Only us Patricia Powell WIRER IMG MAMMO PROCEDURES Fin al Result [facility] documented in this encounter Visit Diagnoses Not on filedocumented in this encounter Additional Health Concerns Infection Onset Date Last Indicated Resolved Time COVID: Suspected 11/13/2021 11/13/2021 11/13/2021 2:41 PM TUBE MAKER C. difficile suspected 02/19/2025 02/19/202502/21 2:35 PM CDT Ring Surveillance: C. auris Comment:[id number] 02/20/2025 02/20/2025 02/27/2025 7:26 PM C DT C. difficile suspected 03/31/2025 03/31/202503/31 7:21 PM CDT VRE 03/31/2025 03/31/2025 documented as of this encounter Care Teams Student Support Advisor Relationship Specialty Start Date End Date Mike Douglass MD [address] [place] [address] PCP - General Family Medicine 03/21/18 07/02/19 documented as of this encounter
--- OUTSIDE RECORDS SUMMARY | 2018-12-27 23:00 | XMS_ITS | Encounter Summary ---
Author Organization [facility] Healthcare Address [address] [place] [address] Care Team Providers Care School Transportation Director Name Role Phone Mike Douglass MD Primary Care Provider [phone] Reason for Visit * Diagnostic Imaging (Routine) - Closed Specialty Diagnoses / Procedures Referred By Chasity vanegas Referred To Contact Procedures Breast Imaging Screening Outside Reference Patricia Powell NP Phone: tel: fax: Referral ID Status Reason Start Date Expiration Date Visits Re quested Visits Authorized [id number] Closed 02/02/2022 03/04/2023 1 1 Encounter Details Date Type Department Care Team (Late st Contact Info) Description 12/28/2018 Hospital Encounter [facility] [address] [place] [address] Social History Tobacco Use Types Packs/Day Years Used Date Smoking Tobacco: Former Cigarettes 0.5 19 1 973 - 1991 Passive Smoke Exposure: Past Smokeless Tobacco: Never Alcohol Use Standard Drinks/Week Comments Yes 0 (1 standard drink = 0.6 oz pur e alcohol) rarely [facility] Utilities Answer Date Recorded In the past 12 months has [employer] electric, gas, oil, or water company threatened [...] often do you attend chur ch or episcopalian services? 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 0 03/31/2025 12:18 PM Vanessa Agarwal RN [...] immobile/non-ambul atory or infant 11/15/2021 2:25 PM CHAIR MECHANIC Tete Chinchilla, RN Parsons Fall Risk Score [...] Assessment Author Left arm 07/26/2025 3:20 PM CHAIR MECHANIC Vidhya Rodriguez CMA * Question Answer Date [...] and gait training provided 11/14/2021 11:36 AM CHAIR MECHANIC Lucina Oliveros, PT * B.M.A.T. - Bedside [...] of Assessment Author 77 07/29/2023 8:54 AM CHAIR MECHANIC Jeovanny Cota, WILFREDO * Pressure Injury Prevention [...] Assessment Author Left arm 07/26/2025 3:20 PM CHAIR MECHANIC Vidhya Rodriguez CMA * Fall Risk Interventions [...] 1 03/31/2025 12:18 PM Vanessa Agarwal RN HEAD COOK Evaluation Needed 2 03/31/2025 12:18 PM Vanessa Agarwal RN * Over the past 2 weeks, how often have you been bothered by any of the following problems? Question Answer Date of Assessment Author Patient Health Questionnaire-2 Score 0 02/20/2025 6:00 AM JuanR amon Townsend RN * How difficult have these [...] name and address after me Faheem Hernandez [address] [place] [address] 04/02/2025 8:14 AM TYSONT Kindra Vazquez OT [...] only and have not been reviewed by [facility] Radiology. There will be no report generated by a [facility] Radiologist. Narrative RAD_MAMMO[facility] - 02/02/2022 3:04 PM CDT EXAMINATION: Images For Reference Purposes Only us Patricia Powell ART CRITIC IMG MAMMO PROCEDURES Fin al Result [facility] documented in this encounter Visit Diagnoses Not on filedocumented in this encounter Additional Health Concerns Infection Onset Date Last Indicated Resolved Time COVID: Suspected 11/13/2021 11/13/2021 11/13/2021 2:41 PM CHAIR MECHANIC C. difficile suspected 02/19/2025 02/19/202502/21 2:35 PM CDT Ring Surveillance: C. auris Comment:[id number] 02/20/2025 02/20/2025 02/27/2025 7:26 PM C DT C. difficile suspected 03/31/2025 03/31/202503/31 7:21 PM CDT VRE 03/31/2025 03/31/2025 documented as of this encounter Care Teams School Transportation Director Relationship Specialty Start Date End Date Mike Douglass MD [address] [place] [address] PCP - General Family Medicine 03/21/18 07/02/19 documented as of this encounter
--- OUTSIDE RECORDS SUMMARY | 2018-12-27 23:05 | XMS_ITS | Encounter Summary ---
Author Organization [facility] Healthcare Address [address] [place] [address] Care Team Providers Care Twisting Frame Changer Name Role Phone Mike Douglass MD Primary Care Provider [phone] Reason for Visit * Diagnostic Imaging (Routine) - Closed Specialty Diagnoses / Procedures Referred By Chasity vanegas Referred To Contact Procedures Breast Imaging Screening Outside Reference Patricia Powell NP Phone: tel: fax: Referral ID Status Reason Start Date Expiration Date Visits Re quested Visits Authorized [id number] Closed 02/02/2022 03/04/2023 1 1 Encounter Details Date Type Department Care Team (Late st Contact Info) Description 12/28/2018 12:05 AM CDT Hospital Encounter [facility]iology [facility] [address] [place] [address] Social History Tobacco Use Types Packs/Day Years Used Date Smoking Tobacco: Former Cigarettes 0.5 19 1 3 - 1991 Passive Smoke Exposure: Past Smokeless Tobacco: Never Alcohol Use Standard Drinks/Week Comments Yes 0 (1 standard drink = 0.6 oz pur e alcohol) rarely [facility] Utilities Answer Date Recorded In the past 12 months has [employer] gas, oil, or water [employer] threatened to shut off services in your [...] often do you attend chur ch or religion services? Patient unable to answer 04/01/2025 Do [...] time in the past 12 m [facility], were you homeless or living in a alf (including now)? 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 Eye ways operator? 0 03/31/2025 12:18 PM Vanessa Agarwal RN CAGE SCORE: 2 or Greater = Positive 0 03/31/2025 12:18 PM Vanessa Agarwal RN * One or more falls in the last year Answer Date of Assessment Author 2 05/07/2025 11:09 AM CDT Kiosk, E [email or web address] * How many times? Answer Date of Assessment Author 2 or more 05/07/2025 11:09 AM CDT Andrew E [email or web address] * Was the patient injured in the fall? Answer Date of Assessment Author No 05/07/2025 11:09 AM CDT Kiosk, E [email or web address] * Has trouble stepping up onto a curb Answer Date of Assessment Author 0 05/07/2025 11:09 AM CDT Andrew E [email or web address] * Advised to use a cane or walker to get around safely Answer Date of Assessment Author 2 05/07/2025 11:09 AM CDT Andrew, E [email or web address] * Often has to britt [...] CDYoel Morales E [email or web address] * Takes medicine that makes [...] 11:09 AM CDYoel Morales E [email or web address] * Often feels sad or [...] Intravenous Therapy/Heparin/Saline Lock 20 07/04/2025 6:21 AM TYSONT Leno Mullins RN Gait/Transferring 0 07/04/2025 6:21 AM YTSONT Leno Mullins RN Mental Status 0 07/04/2025 6:21 AM TYSONT Leno Stevens RN Auto Low/High - if selected proceed to interventions (retired) Low risk-patient immobile/non-ambul atory or 11/15/2021 2:25 PM CUSTOMER ADVOCATE Tete Chinchilla, RN Jaqueline Fall Risk Score (Score >= 45 places fall precaution order) 35 07/04/2025 6:21 AM CDT Leno Mullins RN Prior Fall Event (Autopopulated from EMR) [...] Shear 3 07/04/2025 9:07 AM CDT Mcduffie, Norbert Sinan Scale Score 23 07/04/2025 9:07 AM CDT Mcduffie Norbert * BP Location Answer Date of Assessment Author Left arm 07/26/2025 3:20 PM CUSTOMER ADVOCATE Vidhya Rodriguez CMA * Question Answer Date [...] and gait training provided 11/14/2021 11:36 AM CUSTOMER ADVOCATE Lucina Oliveros, PT * B.M.A.T. - Bedside [...] yourself? No 03/31/2025 12:18 PM TYSONT Vanessa uV RN 6. Have you ever done anything, started to do anything, or prepared to do anything to end your life? No 03/31/2025 12:18 PM TYSONT An Vu RN * Suicide Risk Level Answer Date of Assessment Author No risk level 03/31/2025 12:18 PM TYOSNT Jeovanny Vu RN * Self-Injurious Risk Level Answer Date of Assessment Author No risk level 03/31/2025 12:18 PM Jeovanny Agarwal RN * Alcohol Withdrawal BP Hierarchy Answer Date of Assessment Author 77 07/29/2023 8:54 AM CUSTOMER ADVOCATE Jeovanny Cota, A * Pressure Injury Prevention Question Answer Date of Assessment Author Pressure Ulcer Prevention Interventions Keep skin clean and dry (Sensory Perception/Moistur e) 04/10/2025 8:50 AM CDT Alban Aragon RN 2 Nurse Skin Assessment Jessica PAL 03/31/2025 1:30 P M TYSONT Brittnee Kennedy, DEMARCO Protective Foam Dressing Location Coccyx 04/09/2025 10:50 PM CDT Agueda Clayton, DEMARCO Special Mattress Other (Comment) 04/07/2025 9:50 PM CD T Nuha Meyers, DEMARCO * Transdermal Patch Admission Assessment Question Answer Date of Assessment Author Transdermal Patch Assessment on Admission Not Present 03/31/2025 12:18 PM CDT Donato Vu RN * Over the past [...] from EMR) None found 01/05/2025 1:06 PM TYSONT Emil Astudillo RN Pt needs supervision/assistance with ambulation? (makes [...] Wound (LDA) Surgical site 05/26/2020 9:00 AM Joceline Davis RN * Sinan Scale Question Answer Date of Assessment Author Sinan Scale Used Sinan 07/04/2025 9:07 AM CDT Norbert Mcduffie * Question Answer Date of Assessment Author Hearing - Right Ear Functional 06/26/2025 1 0:04 AM CDT Tina Spears RN Hearing - Left Ear [...] No pitting 04/09/2025 10:50 PM CDT Agueda Valenitne RN Edema Right lower extremit y;Left lower extremity 04/09/2025 10:50 PM CDT Agueda Clayton RN * Question Answer Date of Assessment Author Affect Calm 04/08/2025 9:30 AM CDT Joceline Busch RN Mood Content 04/06/2025 9:00 AM CDT Rehan Corona RN * Question Answer Date of Assessment Author Percent Meal Eaten (%) 75 04/10/2025 12:10 P M CDT Rylee Garivn, EMT Feeding Level of Assistance Able to feed self 04/10/2025 10:30 AM Alban Crowe RN Appetite Good 04/10/2025 10:30 AM TYSONT Alban Aragon RN Percent Snack Eaten (%) 100 04/07/2025 1:00 P M Alban Crowe RN Diet Supplement Name/Percent Consumed % 100 ensure clear 04/10/2025 10:30 AM TYSONT Sae Aragon RN * BP Location Answer Date of Assessment Author Left arm 07/26/2025 3:20 PM CUSTOMER ADVOCATE Vidhya Rodriguez CMA * Fall Risk Interventions [...] Care Protective barrier 05/28/2020 6:00 AM Norma uLque, DEMARCO * ADL Screening Question Answer Date [...] 1 03/31/2025 12:18 PM Vanessa Agarwal RN HEALTH SYSTEMS ANALYST Evaluation Needed 2 03/31/2025 12:18 PM Vanessa [...] Health Questionnaire-9 Score 0 02/20/2025 6:00 AM TYSONT Juan Ramon Stern RN * Question Answer Date of Assessment [...] of assistance Moderate 04/10/2025 12:10 PM Rylee Montgomery, BUBBA Reason not bathed/showered Bath not due on this shift 03/31/2025 7:45 PM TYSONT Dorita Marroquin, DEMARCO Perineal Care Venita Care 04/10/2025 3:27 AM Agueda Turner, DEMARCO Linens Absorbent pad changed 04/09/2025 3:22 AM Agueda Turner RN Bath Bathed/showered with chlorhexidine (CHG) 04/09/2025 9:58 AM TYSONT Raquel Sanford documented as of this encounter [...] name and address after me Faheem Hernandez [address] [place] [address] 04/02/2025 8:14 AM TYSONT Kindra Vazquez OT Short Blessed Total Score 15 04/02/2025 8:14 AM Kindra Borjas OT Short Blessed Comments impaired 8:14 AM TYSONT Kindra Vazquez OT * Question Answer Entry [...] IMAGING MG SCREENING OUTSIDE REFERENCE Routine 12/28/2018 12:05 AM CDT documented in this encounter Results * Breast Imaging Screening Outside Reference (12/28/2018 12:05 AM CDT) Impressions [facility] - 02/02/2022 3:09 PM CDT These images are for Reference purposes only and have not been reviewed by [facility] Radiology. There will be no report generated by a [facility] Radiologist. Narrative [facility]MO[facility] - 02/02/2022 3:09 PM CDT EXAMINATION: Images For Reference Purposes Only us Patricia Powell SECRETARY SPECIALIST IMG MAMMO PROCEDURES Fin al Result [facility] documented in this encounter Visit Diagnoses Not on filedocumented in this encounter Additional Health Concerns Infection Onset Date Last Indicated Resolved Time COVID: Suspected 11/13/2021 11/13/2021 11/13/2021 2:41 PM CUSTOMER ADVOCATE C. difficile suspected 02/19/2025 02/19/202502/21 2:35 PM CDT Ring Surveillance: C. auris Comment:[id number] 02/20/2025 02/20/2025 02/27/2025 7:26 PM C DT C. difficile suspected 03/31/2025 03/31/202503/31 7:21 PM CDT VRE 03/31/2025 03/31/2025 documented as of this encounter Care Teams Twisting Frame Changer Relationship Specialty Start Date End Date Mike Douglass MD [address] [place] [address] PCP - General Family Medicine 03/21/18 07/02/19 documented as of this encounter
--- OUTSIDE RECORDS SUMMARY | 2018-12-27 23:05 | XMS_ITS | Encounter Summary ---
Author Organization [facility] Healthcare Address [address] [place] [address] Care Team Providers Care Watermelon Harvest[employer] Supervisor Name Role Phone Mike Douglass MD Primary Care Provider [phone] Reason for Visit * Diagnostic Imaging (Routine) - Closed Specialty Diagnoses / Procedures Referred By Chasity vanegas Referred To Contact Procedures Breast Imaging Screening Outside Reference Patricia Powell NP Phone: tel: fax: Referral ID Status Reason Start Date Expiration Date Visits Re quested Visits Authorized [id number] Closed 02/02/2022 03/04/2023 1 1 Encounter Details Date Type Department Care Team (Late st Contact Info) Description 12/28/2018 12:05 AM CDT Hospital Encounter [facility] [address] [place] [id number] Social History Tobacco Use Types Packs/Day Years Used Date Smoking Tobacco: Former Cigarettes 0.5 19 1 3 - 1991 Passive Smoke Exposure: Past Smokeless Tobacco: Never Alcohol Use Standard Drinks/Week Comments Yes 0 (1 standard drink = 0.6 oz pur e alcohol) rarely [facility] Utilities Answer Date Recorded In the past 12 months has [employer] gas, oil, or water [employer] threatened to shut off services in your [...] any clubs o r organizations such as religious groups, unions, fraternal or athletic groups, or [...] any time in the past 12 m [facility], were you homeless or living in a detention (including now)? Patient unable to answer 04/01/2025 [...] on file Legal Sex Female 4:24 AM REFRACTORY TECHNICIAN Gender Identity Not on file Sexual [...] or get rid of a hangover? Eye body and frame technician? 0 03/31/2025 12:18 PM Vanessa Agarwal RN [...] Mullins RN Gait/Transferring 0 07/04/2025 6:21 AM TYSONT Leno Mullins RN Mental Status 0 07/04/2025 6:21 AM TYSONT Leno Stevens RN Auto Low/High - if selected proceed to interventions (retired) Low risk-patient immobile/non-ambul atory or 11/15/2021 2:25 PM REFRACTORY TECHNICIAN Tete Chinchilla, RN Jaqueline Fall Risk Score [...] Assessment Author Left arm 07/26/2025 3:20 PM REFRACTORY TECHNICIAN Vidhya Rodriguez CMA * Question Answer [...] and gait training provided 11/14/2021 11:36 AM REFRACTORY TECHNICIAN Lucina Oliveros, PT * B.M.A.T. - [...] of Assessment Author 77 07/29/2023 8:54 AM REFRACTORY TECHNICIAN Jeovanny Cota, A * Pressure Injury Prevention [...] at all 02/20/2025 6:00 AM Juan Ramon Tonwsend RN Trouble concentrating on things, such as [...] on one occasion? Never 06/26/2025 10:04 AM iTna Abdalla RN * Fall Risk Assessment Tool [...] Assessment Author Left arm 07/26/2025 3:20 PM REFRACTORY TECHNICIAN Vidhya Rodriguez CMA * Fall Risk Interventions [...] 1 03/31/2025 12:18 PM Vanessa Agarwal RN CONVEYOR BELT INSTALLER Evaluation Needed 2 03/31/2025 12:18 PM Vanessa [...] name and address after me Faheem Hernandez [address] [place] [address] 04/02/2025 8:14 AM TYSONT Kindra Vazquez OT [...] only and have not been reviewed by [facility] Radiology. There will be no report generated by a [facility] Radiologist. Narrative [facility]_M[facility]MO[facility] - 02/02/2022 3:09 PM CDT EXAMINATION: Images For Reference Purposes Only us Patricia Powell BMET IMG MAMMO PROCEDURES Fin al Result [facility] documented in this encounter Visit Diagnoses Not on filedocumented in this encounter Additional Health Concerns Infection Onset Date Last Indicated Resolved Time COVID: Suspected 11/13/2021 11/13/2021 11/13/2021 2:41 PM REFRACTORY TECHNICIAN C. difficile suspected 02/19/2025 02/19/202502/21 2:35 PM CDT Ring Surveillance: C. auris Comment:[id number] 02/20/2025 02/20/2025 02/27/2025 7:26 PM C DT C. difficile suspected 03/31/2025 03/31/202503/31 7:21 PM CDT VRE 03/31/2025 03/31/2025 documented as of this encounter Care Teams Wat[employer] Harvest[employer] Supervisor Relationship Specialty Start Date End Date Mike Douglass MD [address] [place] [address] PCP - General Family Medicine 03/21/18 07/02/19 documented as of this encounter
[2025-08-15] VITALS (35 sets, daily range): BP systolic 99–116; BP diastolic 44–75; PULSE 81–110; RESP 11–31; TEMP 36.3–36.7; O2SAT 97–100
--- NOTE | ~2025-08-15 | CT_ITS ---
EXAMINATION: CT abdomen pelvis w con DATE: 08/15/2025 18:08 INDICATION: Intermittent abdominal pain TECHNIQUE: Computed tomography (CT) of the abdomen and pelvis was performed with 100 cc Omnipaque 350 intravenous contrast. The dose-length product was 166.56 mGy-cm. Automated exposure control and iterative reconstruction technique were employed. COMPARISON: CT dated 07/06/2025 FINDINGS: There is a right internal ureteral stent present with the proximal coil in the renal pelvis and distal coil in the bladder. There is mild urothelial thickening of the renal pelvis. There is right renal atrophy. There is a right breast implant. Lung bases unremarkable. There is mild thickening of the gastric wall, suspicious for gastritis. Fatty infiltration of the liver. The spleen, pancreas, adrenal glands and left kidney are unremarkable. Nonobstructive bowel gas pattern. There is surgical anastomosis at the colorectal junction. There is chronic fractures of the left inferior and superior pubic rami. Fracture extends into the left acetabulum. IMPRESSION: 1. Mild thickening of the gastric wall, suspicious for gastritis. 2: Mild right hydronephrosis with urothelial thickening in the pelvis. Right internal ureteral stent in expected position. Cannot exclude urinary tract infection. Reviewed, dictated and finalized at location I. [employer] IMPRESSION: 1. Mild thickening of the gastric wall, suspicious for gastritis. 2: Mild right hydronephrosis with urothelial thickening in the pelvis. Right i nternal ureteral stent in expected position. Cannot exclude urinary tract infec tion.
[2025-08-15] MEDS: SIMETHICONE 125 MG CHEW TAB PO (16:26)
--- OUTSIDE RECORDS SUMMARY | 2025-08-15 16:32 | XMS_ITS | Encounter Summary ---
Author Organization [facility] Healthcare Address [address] [place] [address] Care Team Providers Care Supervisor Type Bar And Segment Name Role Phone Suhail Marie MD Unavailable [phone] Robin Pimentel MD Unavailable [phone] Ceci Garcia NP Primary Care Provide r Encounter Details Date Type Department Care Team (Late st Contact Info) Description 05/10/2025 Documentation [facility] Radiation Oncology [address] [facility] Advanced Medicine [facility] [place] [address] Annie Gilbert RN Social History Tobacco Use Types Packs/Day Years Used Date Smoking Tobacco: Former Cigarettes Q uit: 1991 Smokeless Tobacco: Never Alcohol Use Standard Drinks/Week Comments Not Currently 0 (1 standard drink = 0.6 oz pur e alcohol) rarely [facility] Utilities Answer Date Recorded In the [...] often do you attend chur ch or quaker services? Patient unable to answer 04/01/2025 Do you belong to any clubs o r organizations such as jainism groups, unions, fraternal or athletic groups, or school groups? Patient unable to answer 04/01/2025 How often do you attend meet ings of the clubs or organizations you belong to? Patient unable to answer 04/01/2025 Are you , , di vorced, , never , or living with a partner? Patient unable to answer 04/01/2025 AUDIT-C Answer Date Recorded Q1: How often do you have a drink containing alcohol? Never 01/06/2025 Q2: How many drinks containi ng alcohol do you have on a typical day when you are drinking? Patient does not drink Q3: How often do you have si x or more drinks on one occasion? Never 01/06/2025 Overall Financial Resource Strain (CARDIA) Answe r [...] (including now)? Patient unable to answer 04/01/2025 Hunger Vital Sign Answer Date Recorded Within [...] making you feel afraid or unsafe? Denies 03/31/2025 Education Answer Date Recorded What is the highest level of school you have completed or the highest degree you have received? 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
--- OUTSIDE RECORDS SUMMARY | 2025-08-15 16:33 | XMS_ITS | Encounter Summary ---
Author Organization [facility] Healthcare Address [address] [place] [address] Care Team Providers Care Keno Dealer Name Role Phone Laurita German Primary Care Provider [phone] Unknown, Notinfile Unavailable Unavailable Suhail Marie MD Unavailable [phone]- [phone] Robin Pimentel MD Unavailable Tsering Hoff Primary Care Provider [phone] Ceci Garcia WARP YARN SORTER Primary Care Provide r Encounter Details Date Type Department Care Team (Late st Contact Info) Description 06/10/2020 Telephone [facility] Radiology [address] [address] Joselin Garza RN Social History Tobacco Use [...] on file Legal Sex Female 4:24 AM LEGISLATIVE CORRESPONDENT Gender Identity Not on file Sexual Orientation Not on file 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 file Not on file Not on file documented as of this encounter Functional Status * Question Answer Date of Assessment Author MAP (mmHg) 78 06/12/2020 1:05 PM CDT Saima chavez, Dorita Castellanos RN * Parsons Fall Risk Question Answer Date of Assessment Author History of Falling 0 06/12/2020 11:25 AM Argentina Bhagat RN Secondary Diagnosis 15 06/12/2020 11:25 AM Argentina Arita valet attendant Aids 0 06/12/2020 11:25 AM TYSONT Argentina Tucker RN Intravenous Therapy/Heparin/Saline Lock 20 06/12/2020 11:25 AM TYSONT Suzette Ridley RN Gait/Transferring 0 06/12/2020 11:25 AM TYSONT Argentina Ridley RN Mental Status 0 06/12/2020 11:25 AM CDT Argentina Hoover RN Parsons Fall Risk Score (Score >= 45 places fall precaution order) 35 06/12/2020 11:25 AM CDT Argentina Hoover RN * Sinan Scale Question Answer Date of Assessment Author Sensory Perceptions 4 06/12/2020 11:25 AM Argentina Arita RN Moisture 4 06/12/2020 11:25 AM Argentina Patino RN Activity 3 06/12/2020 11:25 AM Argentina Patino RN Mobility 3 06/12/2020 11:25 AM TYSONT Argentina Claudio RN Nutrition 2 06/12/2020 11:25 AM CDT Argentina Claudio RN Friction and Shear 3 06/12/2020 11:25 AM Argentina Bhagat RN Sinan Scale Score 19 06/12/2020 11:25 AM Argentina Bhagat RN * BP Location Answer Date of Assessment Author Left arm 06/13/2020 2:40 PM CDT Yoel Clark MA * Integumentary Question Answer Date of Assessment Author Integumentary (WDL) WDL 06/12/2020 11:25 AM C Argentina Reyes, DEMARCO * Sinan Scale Question Answer Date of Assessment Author Sinan Scale Used Sinan 06/12/2020 11:25 AM CDT Argentina Ridley, DEMARCO * BP Location Answer Date of Assessment Author Left arm 06/13/2020 2:40 PM CDT Yoel Clark MA documented as of this encounter Mental Status * Question Answer Entry Date Author Level of Consciousness Alert 0 1:25 PM CDT Lupe Bellamy RN Orientation Oriented X4 (person, place, time, situation) 06/12/2020 1:25 PM CDT Lupe Bellamy RN Neuro ([facility]) [facility] 06/12/2020 11:25 AM CDT Argentina Ridley RN documented in this encounter Plan of Treatment Not on file documented as of this encounter Visit Diagnoses Not on filedocumented in this encounter Additional Health Concerns Infection Onset Date Last Indicated Resolved Time COVID: Suspected 11/13/2021 11/13/2021 11/13/2021 2:41 PM LEGISLATIVE CORRESPONDENT C. difficile suspected 02/19/2025 02/19/202502/21 2:35 PM CDT Ring Surveillance: C. auris Comment:[id number] 02/20/2025 02/20/2025 02/27/2025 7:26 PM C DT C. difficile suspected 03/31/2025 03/31/202503/31 7:21 PM CDT VRE 03/31/2025 03/31/2025 documented as of this encounter Care Teams Keno Dealer Relationship Specialty Start Date End Date Laurita German PA PCP - General 04/18/20 04/19/24 [place] [address] [place] [address] PCP - General Physician Shift Lab Technician 04/20/24 01/04/25 [place] [address] [address] PCP - General Nurse Practitioner 01/05/25 Unknown, Notinfile Referring Physician 10/17/20 07/27/23 Suhail Marie MD [address] [place] [address] Internal Medicine 07/28/23 Robin Pimentel MD [address] [place] [address] Internal Medicine 07/28/23 documented as of this encounter
--- OUTSIDE RECORDS SUMMARY | 2025-08-15 16:33 | XMS_ITS | Encounter Summary ---
Author Organization [facility] Care Serv[facility] es Address [address] [place] [address] Phone Care Team Providers Care Medicare Biller Name Role Phone Laurita German Primary Care Provider [phone] Unknown, Notinfile Unavailable Unavailable Suhail Marie MD Unavailable [phone]- [phone] Robin Pimentel MD Unavailable Tsering Hoff Primary Care Provider [phone] Ceci Garcia SUPERINTENDENT MECHANICAL Primary Care Provide r Encounter Details Date Type Department Care Team (Late st Contact Info) Description 05/29/2020 Documentation [facility] [address] [place] [address] Dilan Marroquin RPh Social History Tobacco Use [...] on file Legal Sex Female 4:24 AM CHECK SCALER Gender Identity Not on file Sexual Orientation Not on file 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 Not on file Not on file documented as of this encounter Functional Status * Question Answer Date of Assessment Author BP Method Automatic 05/29/2020 1:00 PM Lexis Goss NP MAP (mmHg) 77 05/29/2020 1:00 PM Lexis Goss NP * Parsons Fall Risk Question Answer Date of Assessment Author History of Falling 0 05/29/2020 3:00 PM Lexis Goss NP Secondary Diagnosis 15 05/29/2020 3:00 PM Lexis Cox NP Ambulatory Aids 0 05/29/2020 3:00 PM Lexis Bermudez NP Intravenous Therapy/Heparin/ Saline Lock 20 05/29/2020 3:00 PM Lexis Goss NP Gait/Transferring 0 05/29/2020 3:00 PM Lexis Goss NP Mental Status 0 05/29/2020 3:00 PM Lexis Acevedo NP Parsons Fall Risk Score (Score >= 45 places fall precaution order) 35 05/29/2020 3:00 PM Lexis Goss NP * Sinan Scale Question Answer Date of Assessment Author Sensory Perceptions 4 05/29/2020 9:45 AM Lexis Cox NP Moisture 3 05/29/2020 9:45 AM Lexis Goss NP Activity 3 05/29/2020 9:45 AM Lexis Goss NP Mobility 3 05/29/2020 9:45 AM Lexis Goss NP Nutrition 3 05/29/2020 9:45 AM Lexis Goss NP Friction and Shear 1 05/29/2020 9:45 AM Lexis Goss NP Sinan Scale Score 17 05/29/2020 9:45 AM Lexis Goss NP * BP Location Answer Date of Assessment Author Left leg 05/31/2020 12:42 PM CDT Anabelle Donovan, OT * Fall Risk Interventions Question Answer Date of Assessment Author All Low Fall Interventions Applied Yes 05/29/2020 3:00 PM Lexis Goss NP All Moderate Fall Interventions Applied Yes 05/29/2020 3:00 PM CDT Donna Grace NP Additional Interventions Applied Over-bed table on non-exit side;Exit bed on strong/preferred side 05/29/2020 3:00 PM TYSONT Lexis Grace NP * Pressure Injury Prevention Question Answer Date of Assessment Author Pressure Ulcer Prevention Interventions Keep skin clean and dry (Sensory Perception/Moisture) ;Apply moisture barrier product (Moisture);Change pads/diapers as soon as soiling is noted (Moisture) 05/29/2020 9:45 AM Lexis Goss NP * Integumentary Question Answer Date of Assessment Author Skin Color Appropriate for ethnicity 05/29/2020 9:45 AM Lexis Goss NP Skin Condition/Temp Warm;Dry 05/29/2020 9 :45 AM Lexis Goss NP Skin Integrity Surgical incision 05/29/2020 9:4 5 AM Lexis Goss NP Skin Turgor Non-tenting 05/29/2020 9:45 AM Lexis Goss NP Integumentary Additional Assessments Yes-Sinan 05/29/2020 9:45 AM Lexis Goss NP Integumentary (WDL) X 05/29/2020 9 :45 AM Lexis Goss NP Skin Location RLQ drain, midline 05/29/2020 9: 45 AM Lexis Goss NP * Sinan Scale Question Answer Date of Assessment Author Sinan Scale Used Sinan 05/29/2020 7:20 AM CDT Alena Villalobos, DEMARCO * Question Answer Date of Assessment Author BP Method Automatic 05/29/2020 1:00 PM TYOSNT Lexis Grace NP * BP Location Answer Date of Assessment Author Left leg 05/31/2020 12:42 PM CDT Anabelle Donovan OT * Question Answer Date of Assessment Author Bed In Lowest Position Yes 05/29/2020 3:58 PM Lexis Goss NP Bed Wheels Locked Yes 05/29/2020 3:58 PM Lexis Goss NP * Fall Risk Interventions Question Answer Date of Assessment Author All Low Fall Interventions Applied Yes 05/29/2020 3:00 PM Lexis Goss NP All Moderate Fall Interventions Applied Yes 05/29/2020 3:00 PM TYSONT Donna Grace NP Additional Interventions Applied Over-bed table on non-exit side;Exit bed on strong/preferred side 05/29/2020 3:00 PM TYSONT Lexis Grace NP * Question Answer Date of Assessment Author Hygiene Patient refused 05/29/2020 1:00 PM CDT Lexis Carter NP documented as of this encounter Mental Status * Question Answer Entry Date Author Level of Consciousness Alert;Awake 0 9:45 AM Lexis Goss NP Orientation Oriented X4 (person, place, time, situation) 05/29/2020 9:45 AM Lexis Goss NP * Question Answer Entry Date Author Neuro ([facility]) [facility] 05/29/2020 9:45 AM Lexis Goss NP * Question Answer Entry Date Author Neuro ([facility]) [facility] 05/29/2020 9:00 AM CDT Rocky Salazar RN documented in this encounter Plan of Treatment Not on file documented as of this encounter Visit Diagnoses Not on filedocumented in this encounter Additional Health Concerns Infection Onset Date Last Indicated Resolved Time COVID: Suspected 11/13/2021 11/13/2021 11/13/2021 2:41 PM CHECK SCALER C. difficile suspected 02/19/2025 02/19/202502/21 2:35 PM CDT Ring Surveillance: C. auris Comment:[id number] 02/20/2025 02/20/2025 02/27/2025 7:26 PM C DT C. difficile suspected 03/31/2025 03/31/202503/31 7:21 PM CDT VRE 03/31/2025 03/31/2025 documented as of this encounter Care Teams Medicare Biller Relationship Specialty Start Date End Date Laurita German PA PCP - General 04/18/20 04/19/24 [place] [address] [place], [place] [id number] PCP - General Physician Lap Cutter Truer Operator 04/20/24 01/04/25 [place] [address] [place] [address] [place] [address] PCP - General Nurse Practitioner 01/05/25 Unknown, Notinfile Referring Physician 10/17/20 07/27/23 Suhail Marie MD [address] [place] [address] Internal Medicine 07/28/23 Robin Pimentel MD [address] [place] [address] Internal Medicine 07/28/23 documented as of this encounter
--- OUTSIDE RECORDS SUMMARY | 2025-08-15 16:33 | XMS_ITS | Clinical Summary ---
Author Organization [facility] Address [address], [facility] [address] [place] [address] Phone Care Team Providers Care Varying Exceptionalities Teacher Name Role Phone Laurita German Primary Care Provider [phone] Social History Tobacco Use Types Packs/Day Years Used Date Smoking Tobacco: Never Assessed Comments Unknown Sex and Gender Information Value Date Recorded Sex Assigned at Not on file Legal Sex Female 8:17 AM CDT Gender Identity Not on file Sexual Orientation Not on file Plan of Treatment Not on file Insurance [employer] Care Teams Varying Exceptionalities Teacher Relationship Specialty Start Date End Date Laurita German, FLACO PCP - General Physician Set Designer 04/03/20
--- OUTSIDE RECORDS SUMMARY | 2025-08-15 16:33 | XMS_ITS | Encounter Summary ---
Author Organization [facility] Healthcare Address [address] [place] [address] Care Team Providers Care Naval Inspector Name Role Phone Suhail Marie MD Unavailable [phone] Robin Pimentel MD Unavailable [phone] Tsering Hoff Primary Care Provider [phone] Ceci Garcia NP Primary Care Provide r Encounter Details Date Type Department Care Team (Late st Contact Info) Description 06/05/[address] [facility] PATHOLOGY [address] [facility] [address] [place] [address] Mary Jennings MD [address] [facility] [place] [address] Social History Tobacco Use Types Packs/Day Years [...] on file Legal Sex Female 4:24 AM PERMIT AGENT Gender Identity Not on file Sexual [...] olaparib maintenance therapy who presented to outpatient Chief Information Officer Onc clinic for pre-chemotherapy visit. Patient has [...] this patient. Contact Information: Please contact the [facility] Transfusion Medicine Service at (option 1) with [...] Infection Onset Date Last Indicated Resolved Time C. difficile suspected 02/19/2025 02/19/202502/21 2:35 PM CDT Ring Surveillance: C. auris Comment:[id number] 02/20/2025 02/20/2025 02/27/2025 7:26 PM C DT C. difficile suspected 03/31/2025 03/31/202503/31 7:21 PM CDT VRE 03/31/2025 03/31/2025 documented as of this encounter Care Teams Naval Inspector Relationship Specialty [place] [address] [place] [address] PCP - General Physician Admittance Attendant 04/20/24 01/04/25 [place] [address] [address] PCP - General Nurse Practitioner 01/05/25 Suhail Marie MD [address] [place] [address] Internal Medicine 07/28/23 Robin Pimentel MD [address] [place] [address] Internal Medicine 07/28/23 documented as of this encounter
--- OUTSIDE RECORDS SUMMARY | 2025-08-15 16:34 | XMS_ITS ---
Author Organization [facility] Address [address] [place] [address] Care Team Providers Care Banking Pin Adjuster Name Role Phone Suhail Marie MD Unavailable [phone] Robin Pimentel MD Unavailable [phone] Ceci Garcia NP Primary Care Provide r Active Problems Problem Noted Date Diagnosed Date Other hydronephrosis 07/04/2025 GERD (gastroesophageal reflux disease) Chronic anemia 05/03/2025 COVID-19 05/03/2025 Debilitated 05/03/2025 Left radial fracture 05/03/2025 Pubic ramus fracture 05/03/2025 Pulmonary nodule 05/03/2025 Urinary retention 05/03/2025 UTI (urinary tract infection) 05/03/2025 Persons encountering health services in other specified circumstances 03/19/2025 Severe protein-calorie malnutrition 02/21/2025 Hydronephrosis of right kidney 01/05/2025 Moderate episode of recurrent major depressive d isorder 09/19/2024 Sick sinus syndrome 09/19/2024 Anxiety disorder, unspecified 08/01/2024 S/P total knee replacement, left 12/22/2022 Overview [...] 3 months History of breast cancer 03/17/2022 Urinary incontinence 04/14/2021 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 06/26/2020 Cancer of peritoneum 04/18/2020 Cancer Staging:Pathologic stage from 04/29/2020:FIGO Stage IIIC(pT3c, pN1b, cM0) - Signed by Belem Menchaca MD on 05/13/2020 Pure hypercholesterolemia 06/27/2019 Chronic left-sided low back pain with left-sided sciatica 05/01/2019 Overview (02/06/2021): Last Assessment & Plan: Will try gabapentin Irritable bowel syndrome 12/21/2012 Depression Current Treatment and Therapy Plans Adult BMT/ONC - Blood and/or Platelet Administration for Outpatient* Plan Start Date:07/03/2023 Plan Provider:Belem Menchaca MD Linked Problems Cancer of peritoneum (HCC) Treatment Medications No medications scheduled. CARBOplatin / Bevacizumab 21 Day Cycles - CHIEF ESTIMATOR (Cycle 1 Gemcitibine D1, 8/Carbo D1, 8/Dorina D1, 8)* Plan Start Date:02/21/2025 Plan Provider:Belem Menchaca MD Linked Problems Cancer of peritoneum (HCC)Pe rsons encountering health services in other specified circumstances Treatment Medications Current Day (Day 1 , Cycle 3 - Planned for 04/12/2025) Next Day (Day 1, Cycle 4 - Planned for 05/03/2025) bevacizumab-awwb (MVASI)bevacizumab-awwb (MVASI) IVPBCARBOplatin (by AUC:GOG) (PARAPLATIN)CARBOplatin (PARAPLATIN) IVPB in 250 mL (by AUC: GOG)gemcitabine (GEMZAR)gemcitabine (GEMZAR) IVPB in 250 mL (using 38 mg/ml gemcitabine) (J9201) bevacizumab-awwb (MVASI) 875 mg in sodium chloride 0.9% 100 mL IVPBCARBOplatin (PARAPLATIN) 257 mg in sodium chloride 0.9% 250 mL IVPB (BY AUC GOG) bevacizumab-awwb (MVASI) 875 mg in sodium chloride 0.9% 100 mL IVPBCARBOplatin (PARAPLATIN) 246 mg in sodium chloride 0.9% 250 mL IVPB (BY AUC GOG) Electrolyte Replacement* Plan Start Date:03/15/2025 Plan Provider:Belem Menchaca MD Linked Problems Cancer of peritoneum (HCC) Treatment Medications No medications scheduled. IV Maintenance Therapy Plan* Plan Start Date:06/03/2023 [...] TABlets PO BID 28 Day Cycles - CHIEF ESTIMATOR 4 02/08/2025 No medications scheduled. Progression Belem Menchaca MD Treatment not started DOXOrubicin Liposomal (DOXIL) / CARBOplatin 28 Day Cycles - CHIEF ESTIMATOR (Carbo Locked) 3 09/23/2023 CARBOplatin (PARAPLATIN) IVPB in 250 mL (by AUC: GOG)LIPOSOMAL DOXOrubicin (DOXIL) IVPB in 250 mL Therapy Complete Belem Menchaca MD 6 of 6 cycles started PACLItaxel weekly / CARBOplatin weekly 21 Day Cycles - CHIEF ESTIMATOR 06/27/20 20 11/14/2021 CARBOplatin (by AUC:GOG) (PARAPLATIN)CA RBOplatin (PARAPLATIN) IVPB in 250 mL (by AUC: GOG)PACLitaxel (TAXOL)PACLIta xel (TAXOL) 100 ml Therapy Complete Belem Menchaca MD 6 of 6 cycles started Oncology Supportive Care Therapy Plan Plan Name Start Date Discontinue Date Treatment Medications Discontinue Reason Plan Provider IV MAINTENANCE THERAPY PLAN 09/11/2020 05/03/2025 No medications scheduled. Therapy Complete Belem Menchaca MD Past Radiation Episodes * Radiation Oncology - Radiation Therapy - March 2025Overview* First Treatment Date Last Treatment Date Treatment Site Technique Goal Episod e Provider 05/31/2025 06/06/2025 Elisabeth Mann MD PhD Treatment Courses* Course [id number]/31/2025 - 06/06/2025 Treatment Period Fraction Dose Fractions Total Dose Plans Planned [id number] 06/06/2025 - 06/06/2025 700 1 700 [id number] 06/05/2025 - 06/05/2025 700 1 1,400 [id number] 06/04/2025 - 06/04/2025 700 1 2,100 [id number] 06/01/2025 - 06/01/2025 700 1 2,800 [id number] 05/31/2025 - 05/31/2025 700 3,500 Reference Points Delivered [id number] 05/31/2025 - 06/06/2025 3,500 Lifetime Dose Tracking * Chemical Lifetime Dose Automatic Entry Manual Entr y Fluoro Time 14.07 minutes 14.07 minutes 0 minutes doxorubicin HCl pegylated liposomal 181.161 mg/m2 (330 mg) 181.161 mg/m2 (330 mg) 0 mg/m2 (0 mg) doxorubicin isotoxic equivalent (Please manually verify calculation) 181.161 mg/m2 (330 mg) 181.161 mg/m2 (330 mg) 0 mg/m2 (0 mg) Air kerma at the reference point (Ka,r) 36.8 mGy 36.8 mGy 0 mGy DLP 7,777 mGycm 7,777 mGycm 0 mGycm Resolved Problems Problem Noted Date Diagnosed Date Resolved Date Closed pelvic fracture 05/03/202507/26 Constipation 05/03/2025 07/26/2025 Fracture of wrist 05/03/2025 07/26/2025 Gait abnormality 05/03/2025 07/26/2025 Hypoxia 05/03/2025 07/26/2025 Electrolyte abnormality 03/31/202507/14 Nausea & vomiting 02/19/2025 03/14/2025 Peritoneal carcinoma 01/06/2025 025 Drug-induced polyneuropathy 08/01/2024 03/14/2025 Ovarian cancer 08/01/2024 07/26/2025 Overview (05/03/2025): Approximately 2019 with recurrence in 2021 Severe malnutrition 11/13/2021 03/19/20 22 Breast density 04/14/2021 07/26/2025 Left shoulder pain 02/05/2021 5 Shingles 10/17/2020 12/19/2020 Abscess 05/27/2020 05/27/2020 Peritonitis [...] - Keep follow-up appointments with IR and CHIEF ESTIMATOR as directed. - Discussed with patient the [...] (04/18/2020): Added automatically from request for surgery [id number] Heart burn 07/03/2019 04/18/2020 Overview (07/03/2019): Added automatically from request for surgery [id number] Malignant neoplasm of overla pping sites of right female breast 05/16/2019 04/18/2020 Former smoker 07/18/2012 04/18/2020 Overview (12/24/2017): Description: 03/19/14 Gastroesophageal reflux disease 07/18/2012 07/26/2025 Hyperlipidemia 07/18/2020
--- OUTSIDE RECORDS SUMMARY | 2025-08-15 16:34 | XMS_ITS | Clinical Summary ---
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 Bilirubin, total 0.3 0.1 - 1.2 mg/dL [facility] Protein, pl 6.5 6.5 - 8.5 g/dL [facility] Albumin 3.3(L) 3.5 - 5.0 g/dL [facility] Alk phos 126 40 - 130 Units/L [facility] ALT 13 7 - 45 Units/L [facility] AST 26 10 - 45 Units/L [facility] Blood 07/23/2025 2:08 PM COMMUNICATIONS SPECIALIST 07/23/2025 2:25 PM COMMUNICATIONS SPECIALIST us Belem Menchaca MD LAB BLOOD ORDERABLES Marbella jeong Result [facility] [place] [address] * FL Fluoroscopy < 1 Hour (07/04/2025 9:03 AM CDT) Narrative [facility] - 07/04/2025 9:03 AM CDT The images from this study are not interpreted by Radiology. Please refer to the physician's procedure / OR operative note. Breanna Ac MD IMG FLUOROSCOPY PROCEDURES Final Result [facility] * KS AN ELECTIVE SUPRAGLOTTIC AIRWAY, KS AN PROCEDURE PLACEHOLDER (07/04/2025 9:00 AM CDT) Narrative Aissatou Osorio CRNA - 07/04/2025 9:00 AM CDT Aissatou Osorio CRNA 07/04/2025 9:01 AM Airway Patient location: OR Urgency: elective Date/time: 07/04/2025 9:00 AM Indications for airway management: anesthesia Difficult airway: no Staff: Supervising provider: Timo La MD Placed by: EXPLOSIVES TRUCK DRIVER: Aissatou Osorio CRNA Emergent airway documentation: Risks and benefits discussed: yes Consent obtained: yes Consent given by: patient Airway prep: Preoxygenated: yes Mask difficulty assessment: 1 - vent by mask Spontaneous ventilation during airway: absent Sedation level during airway: GA Final airway details: Final airway type: supraglottic airway Final supraglottic airway: classic SGA size: 3 Number of attempts: 1 Result [facility] Timo La MD ANESTHESIA ORDERABLES Final Result * (ABNORMAL) Urine culture Urine, bladder (07/04/2025 8:58 AM CDT) Report Final Report: Greater than or equal to 100,000 colonies/mL of Enterococcus faecalis For susceptibility results, refer to accession number [id number] on the urine culture from 07/02/2025 * * * * * * * * * * * * * * * * * * * * Greater than or equal to 100,000 colonies/mL of Enterococcus faecalis #2 For susceptibility results, refer to accession number [id number] on the urine culture from 07/02/2025 * * * * * * * * * * * * * * * * * * * * Plus growth of clinically insignificant bacterial helena. (.) Organism ENTEROCOCCUS FAECALIS [facility] Organism ENTEROCOCCUS FAECALIS [facility] Organism PLUS GROWTH OF CLINICALLY INSIGNIFICANT [facility] Urine, bladder 07/04/2025 8: 58 AM CDT 07/04/2025 12:09 PM CDT Narrative JYOTI ZUNIGA - 07/06/2025 6:25 AM CDT Bladder urine for culture Indications for Culture:->Urology patient Testing performed by [facility] ([phone]) us Breanna Ac MD LAB MICROBIOLOGY - GENERAL ORDER BRYCE Final Result [facility] Department [place] [address] * (ABNORMAL) Urine culture Urine, clean voided (07/02/2025 10:05 AM CDT) Report Final Report: Greater than or equal to 100,000 colonies/mL of Enterococcus faecalis * * * * * * * * * * * * * * * * * * * * Greater than or equal to 100,000 colonies/mL of Enterococcus faecalis #2 * * * * * * * * * * * * * * * * * * * * Plus growth of clinically insignificant bacterial helena. (.) Organism PLUS GROWTH OF CLINICALLY INSIGNIFICANT HELENA. [facility] Organism ENTEROCOCCUS FAECALIS [facility] Organism ENTEROCOCCUS FAECALIS [facility] Urine, clean voided 07/02/2025 10:05 AM CDT 07/02/2025 11:18 AM CDT Narrative JYOTI ZUNIGA - 07/06/2025 12:31 PM CDT Testing performed by [facility] ([phone]) Organism Antibiotic Method Susceptibility Enterococcus faecalis Ampicillin (CORRINE) INTERPRETATIO N Susceptible Enterococcus faecalis Vancomycin (CORRINE) INTERPRETATIO N Susceptible Enterococcus faecalis Linezolid (CORRINE) INTERPRETATIO N Susceptible Enterococcus faecalis Doxycycline (CORRINE) INTERPRETATIO N Susceptible Enterococcus faecalis Nitrofurantoin (CORRINE) INTERPRETAT ION Susceptible Enterococcus faecalis Ampicillin (CORRINE) INTERPRETATIO N Susceptible Enterococcus faecalis Vancomycin (CORRINE) INTERPRETATIO N Susceptible Enterococcus faecalis Linezolid (CORRINE) INTERPRETATIO N Susceptible Enterococcus faecalis Doxycycline (CORRINE) INTERPRETATIO N Susceptible Enterococcus faecalis Nitrofurantoin (CORRINE) INTERPRETAT ION Susceptible us Breanna Ac MD LAB MICROBIOLOGY - GENERAL ORDER BRYCE Final Result [facility] Department [place] [address] * RAD ONC ARIA SESSION SUMMARY (06/06/2025 10:10 AM CDT) Course Name [email or web address] s ARIA Course Plan Date 05/17/2025 3:55 PM ARIA Elapsed Days 6 ARIA Treatment Start Date 05/31/2025 ARIA Treatment Site [id number] ARIA Dose Given To Date (cGy) 3,500 ARIA Session Dosage Given (cGy) 700 ARIA Plan ID [id number] 508 ARIA Fractions Treated 1 ARIA Prescribed Dose Per Fraction (cGy) 700 ARIA Prescribed Total Dose (cGy) 700 ARIA 06/06/2025 10:1 0 AM CDT us Not In File Miscellaneous RADIATION ONCOLOGY ORD ERABLES Final Result ARIA * RAD ONC ARIA SESSION SUMMARY (06/05/2025 9:35 AM CDT) Course Name [email or web address] ARIA Course Plan Date 05/17/2025 3:55 PM ARIA Elapsed Days 5 ARIA Treatment Start Date 05/31/2025 ARIA Treatment Site [id number] ARIA Dose Given To Date (cGy) 2,800 ARIA Session Dosage Given (cGy) 700 ARIA Plan ID [id number] 406 ARIA Fractions Treated 1 ARIA Prescribed Dose Per Fraction (cGy) 700 ARIA Prescribed Total Dose (cGy) 1,400 ARIA 06/05/2025 9:35 AM CDT us Not In File Miscellaneous RADIATION ONCOLOGY ORD ERABLES Final Result Performing Organization Address [facility] Co de Phone Number CRIS * RAD ONC ARIA SESSION SUMMARY (06/04/2025 8:50 AM CDT) Course Name C1_R_Pelflavia s_2024 ARIA Course Plan Date 05/17/2025 3:55 PM ARIA Elapsed Days 4 ARIA Treatment Start Date 05/31/2025 ARIA Treatment Site [id number] ARIA Dose Given To Date (cGy) 2,100 ARIA Session Dosage Given (cGy) 700 ARIA Plan ID [id number] 303 ARIA Fractions Treated 1 ARIA Prescribed Dose Per Fraction (cGy) 700 ARIA Prescribed Total Dose (cGy) 2,100 ARIA 06/04/2025 8:50 AM CDT us Not In File Miscellaneous RADIATION ONCOLOGY ORD ERABLES Final Result Performing Organization Address [facility] de Phone Number ARIJeovanny * RAD ONC ARIA SESSION SUMMARY (06/01/2025 10:29 AM CDT) Course Name [email or web address] ARIA Course Plan Date 05/17/2025 3:55 PM ARIA Elapsed Days 1 ARIA Treatment Start Date 05/31/2025 ARIA Treatment Site [id number] ARIA Dose Given To Date (cGy) 1,400 ARIA Session Dosage Given (cGy) 700 ARIA Plan ID [id number] 204 ARIA Fractions Treated 1 ARIA Prescribed Dose Per Fraction (cGy) 700 ARIA Prescribed Total Dose (cGy) 2,800 ARIA 06/01/2025 10:2 9 AM CDT us Not In File Miscellaneous RADIATION ONCOLOGY ORD ERABLES Final Result Performing Organization Address [facility] Co de Phone Number ARIA * RAD ONC ARIA SESSION SUMMARY (05/31/2025 9:11 AM CDT) Course Name C1_R_Pelvi s_2024 ARIA Course Plan Date 05/17/2025 3:55 PM ARIA Elapsed Days 0 ARIA Treatment Start Date 05/31/2025 ARIA Treatment Site [id number] ARIA Dose Given To Date (cGy) 700 ARIA Session Dosage Given (cGy) 700 ARIA Plan ID [id number] 103 ARIA Fractions Treated 1 ARIA Prescribed Dose Per Fraction (cGy) 700 ARIA Prescribed Total Dose (cGy) 3,500 ARIA 05/31/2025 9:11 AM CDT us Not In File Miscellaneous RADIATION ONCOLOGY ORD ERABLES Final Result CRIS * Screening Mammogram Left W Pardeep Unilateral Only (05/16/2025 11:30 AM CDT) Anatomical Region Laterality Modality Breast Left Mammography Impressions 05/17/2025 9:53 AM CDT No evidence of malignancy. OVERALL BI-RADS FINAL ASSESSMENT: 1 - Negative RECOMMENDATION: Recommend left breast annual screening mammography. Narrative 05/17/2025 9:53 AM CDT EXAMINATION: Screening Mammogram Left W Pardeep Unilateral Only: 05/16/2025 COMPARISON: Relevant prior studies available at the time of interpretation were reviewed, including the most recent mammogram on: 04/28/2024. TECHNIQUE: Mammography was performed with 2D and 3D digital breast tomosynthesis (DBT) images. CAD was utilized. BREAST PARENCHYMAL COMPOSITION: There are scattered areas of fibroglandular density. FINDINGS: There is no suspicious mass, calcification, or architectural distortion. us Lilo Boucher NP IMG MAMMO PROCEDURES Final Result * Hepatitis C antibody Blood (01/08/2025 12:43 PM CDT) Hep C Ab Nonreactive Nonreactive Comment:Antibodies to HCV no t detected. Does NOT exclude the possibility of recent exposure to HCV. 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 03/31/2025 Insurance [facility] [employer] HMO/PPO Address: [address] [place] [id number] [facility] MEDICARE CIGNA Group [facility] [id number] [facility] MEDICARE [facility] MEDICARE [facility] SECONDARY Advance Directives For more information, please contact: [phone] * Full Code (Latest Code Status on File) Date Activated Date Inactivated Comments 03/31/2025 12:49 PM 04/10/2025 8:22 PM * Full Code Date Activated Date Inactivated Comments 02/19/2025 10:17 PM 02/21/2025 10:15 PM * Full Code Date Activated Date Inactivated Comments 01/06/2025 4:37 AM 01/08/2025 4:48 PM * Full Code Date Activated Date Inactivated Comments 11/13/2021 12:04 PM 11/15/2021 6:21 PM * Full Code Date Activated Date Inactivated Comments 06/12/2020 11:27 AM 06/12/2020 5:37 PM Care Teams Spray Pilot Relationship Specialty [place] [address] [address] [address] PCP - General Nurse Practitioner 01/05/25 Suhail Marie MD [address] [place] [address] Internal Medicine 07/28/23 Robin Pimentel MD [address] [place], [place] [id number] Internal Medicine 07/28/23
--- OUTSIDE RECORDS SUMMARY | 2025-08-15 17:04 | XMS_ITS | Encounter Summary ---
Author Organization [facility] Address [address] [place] [address] Care Team Providers Care Deposit Clerk Name Role Phone Cipriano Potts MD Unavailable [phone] Laurita German Primary Care Provider + [phone] Tsering Hoff PA-C Primary Care Provider [phone] Ceci Garcia NP Primary Care Provider + [phone] Encounter Details Date Type Department Care Team (Late st Contact Info) Description 03/15/2023 MyChart Message Enc [facility] Orthopedic & Sports Medicine - [place]ien [address] [place], [place] [id number] [phone] Brian Bryant NP [address] [facility] [place] [address] Nerve Test Results Social History Tobacco Use Types Packs/Day Years Used Date Smoking Tobacco: Former Cigarettes 0.5 15 0 01/10/1977 - 01/11/1992 Passive Smoke Exposure: Past Smokeless Tobacco: Never Comments:non smoker Alcohol Use Standard Drinks/Week Comments No 0 (1 standard drink = 0.6 oz pur e alcohol) OASIS D0700: Social Isolation Answer Da te Recorded Frequency of experiencing loneliness or isolatio n Never 01/05/2023 OASIS A1250: Transportation Answer Date Recorded Lack of Transportation (Medical) No 01/05/2023 Lack of Transportation (Non-Medical) No 01/05/2023 Patient Unable or Declines to Respond No 01/05/2023 OASIS B1300: Health Literacy Answer Brice e Recorded Frequency of needing help to read materials from doctor or pharmacy Never 01/05/2023 Humiliation, Afraid, Rape, and Kick questionnair e Answer Date Recorded Within the last year, have y ou been afraid of your partner or ex-partner? No 12/29/2022 Within the last year, have y ou been humiliated or emotionally abused in other ways by your partner or ex-partner? No Within the last year, have y ou been kicked, hit, slapped, or otherwise physically hurt by your partner or ex-partner? No 12/29/2022 Within the last year, have y ou been raped or forced to have any kind of sexual activity by your partner or ex-partner? No 12/29/2022 Social Connection and Isolation Panel Answer Date Recorded In a typical week, how many times do you talk on the phone with family, friends, or neighbors? Three times a week 12/29/2022 How often do you get togethe r with friends or relatives? Three times a week 12/29/2022 How often do you attend chur or hinduism services? More than 4 times per year 12/29/2022 Do you belong to any clubs o r organizations such as confucianism groups, unions, fraternal or athletic groups, or school groups? No 12/29/2022 How often do you attend meet ings of the clubs or organizations you belong to? 1 to 4 times per year 12/29/2022 Are you , , di vorced, , never , or living with a partner? 12/29/2022 AUDIT-C Answer Date Recorded Q1: How often do you have a drink containing alcohol? Never 12/29/2022 Q2: How many drinks containi ng alcohol do you have on a typical day when you are drinking? Patient does not drink Q3: How often do you have si x or more drinks on one occasion? Never 12/29/2022 Overall Financial Resource Strain (CARDIA) Answe r Date Recorded How hard is it for you to pa y for the very basics like food, housing, medical care, and heating? Not hard at all 12/29/2022 PHQ-2 Answer Date Recorded Patient Health Questionnaire-2 Score 0 01/26/2023 [facility] - Occupational Stress Questionnaire Answer Date Recorded Do you feel stress - tense, restless, nervous, or anxious, or unable to sleep at night because your mind is troubled all the time - these days? To some extent 12/29/2022 Exercise Vital Sign Answer Date Recorde d On average, how many days pe r week do you engage in moderate to strenuous exercise (like a brisk walk)? 0 days 12/29/2022 On average, how many minutes do you engage in exercise at this level? 0 min 12/29/2022 Hunger Vital Sign Answer Date Recorded Within the past 12 months, y ou worried that your food would run out before you got the money to buy more. Never true 12/30/19 23 Within the past 12 months, t he food you bought just didn't last and you didn't have money to get more. Never true 12/29/2022 PRAPARE - Transportation Answer Date Re corded In the past 12 months, has l ack of transportation kept you from medical appointments or from getting medications? No 12/12 In the past 12 months, has l ack of transportation kept you from meetings, work, or from getting things needed for daily living? No 12/29/2022 Housing Stability Vital Sign Answer Brice e Recorded In the last 12 months, was t here a time when you were not able to pay the mortgage or rent on time? No 12/29/2022 In the last 12 months, how many places have you lived? 1 12/29/2022 In the last 12 months, was t here a time when you did not have a steady place to sleep or slept in a longterm (including now)? No 12/29/2022 Education Answer Date Recorded What is the highest level of school you have completed or the highest degree you have received? 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 Answer Date of Assessment Author Status No 12/29/2022 7:35 AM CDT Leesa Villalobos RN Active * Do you have serious difficulty walking or climbing stairs? Answer Date of Assessment Author Status Yes 12/29/2022 7:35 AM CDT Leesa Villalobos RN Active * Do you have difficulty dressing or bathing? Answer Date of Assessment Author Status No 12/29/2022 7:35 AM TYSONT Leesa Villalobos RN Active * Because of a physical, mental, or emotional condition, do you have difficulty doing errands alone such as visiting a doctor's office or shopping? Answer Date of Assessment Author Status No 12/29/2022 7:35 AM CDT Leesa Villalobos RN Active documented as of this encounter Mental Status * Because of a physical, mental, or emotional condition, do you have serious difficulty concentrating, remembering, or making decisions? Answer Entry Date Author Status No 12/29/2022 7:35 AM TYSONT Leesa Villalobos RN Active documented in this encounter Plan of Treatment Upcoming Encounters Date Type Department Care Team (Late st Contact Info) Description 09/19/2025 10:20 AM INSECTICIDE SPRAYER Office Visit [facility] Family & Internal Medicine [facility] [address] [place] [address] [place] [address] [facility] [address] [facility] [place] [address] documented as of this encounter Visit Diagnoses Not on filedocumented in this encounter Additional Health Concerns Assessment Noted Time PHQ-9 Depression Total Score: 0 07/03/20 22 10:52 AM CDT documented as of this encounter Care Teams Deposit Clerk Relationship Specialty [place] [address] [place] [address] PCP - General PHYSICIAN CONSTRUCTION AND MAINTENANCE INSPECTOR 03/20/20 07/20/23 Tsering Hoff PA-C [address] [place] [address] PCP - General PHYSICIAN CONSTRUCTION AND MAINTENANCE INSPECTOR 07/21/23 11/26/24 [place] [address] [address] [address]. [place] [address] PCP - General Nurse Practitioner Family 11/27/24 Cipriano Potts MD [address] [facility] [address] [place] [id number] [place] Covered Buckle Assembler CARDIOVASCULAR DISEASE 05/10/19 documented as of this encounter
--- OUTSIDE RECORDS SUMMARY | 2025-08-15 17:04 | XMS_ITS | Encounter Summary ---
Author Organization [facility] Address [address] [place] [address] Care Team Providers Care Lump Roller Name Role Phone Suhail Marie MD Unavailable [phone] Robin Pimentel MD Unavailable [phone] Ceci Garcia NP Primary Care Provide r Encounter Details Date Type Department Care Team (Late st Contact Info) Description 05/10/2025 Documentation [facility] Radiation Oncology [address] [facility] Advanced Medicine [facility] [place] [address] Annie Gilbert RN Social History Tobacco Use Types Packs/Day Years Used Date Smoking Tobacco: Former Cigarettes Q uit: 1991 Smokeless Tobacco: Never Alcohol Use Standard Drinks/Week Comments Not Currently 0 (1 standard drink = 0.6 oz pur e alcohol) rarely [facility] Utilities Answer Date Recorded In the [...] often do you attend chur ch or uatsdin services? Patient unable to answer 04/01/2025 Do you belong to any clubs o r organizations such as advent groups, unions, fraternal or athletic groups, or [...] any time in the past 12 [facility], were you homeless or living [...] on file Legal Sex Female 4:24 AM PACKER INSULATION Gender Identity Not on file Sexual Orientation [...] documented as of this encounter Care Teams Lump Roller Relationship Specialty [place] [address] [address] PCP - General Nurse Practitioner 01/05/25 Suhail Marie MD [address] [place] [address] Internal Medicine 07/28/23 Robin Pimentel MD [address] [place] [address] Internal Medicine 07/28/23 documented as of this encounter
--- OUTSIDE RECORDS SUMMARY | 2025-08-15 17:04 | XMS_ITS | Clinical Summary ---
Author Organization [facility] Address [address], [facility] [address] [place] [address] Phone Care Team Providers Care Health Safety Manager Name Role Phone Laurita German Primary Care Provider [phone] Social History Tobacco Use Types Packs/Day Years Used Date Smoking Tobacco: Never Assessed Comments Unknown Sex and Gender Information Value Date Recorded Sex Assigned at Not on file Legal Sex Female 8:17 AM CDT Gender Identity Not on file Sexual Orientation Not on file Plan of Treatment Not on file Insurance [employer] Care Teams Health Safety Manager Relationship Specialty Start Date End Date Laurita German, FLACO PCP - General Physician Barrel Brander 04/03/20
--- OUTSIDE RECORDS SUMMARY | 2025-08-15 17:04 | XMS_ITS | Clinical Summary ---
Author Organization [facility] Address [facility] [place] [address] Care Team Providers Care Electrical Sign Wirer Name Role Phone Cipriano Potts MD Unavailable [phone] Ceci Garcia NP Primary Care Provider [phone] Allergies Active Allergy Reactions Criticality Noted Date Comments Celecoxib Rash Medium 07/27/2024 Coconut (Cocos Nucifera) Anaphylaxis High 07/27/2024 Patient states her throat closes up Prochlorperazine Shakiness 06/22/2025 Also known as compazine Tape Rash,Contact Dermatitis,Other (see comment) High 05/31/2019 Ok w/ paper tape Medications fluticasone propionate (FLONASE) 50 MCG/ACT nasal sprayIndication s:allergies SPRAY 1 SPRAY INTO EACH NOSTRIL EVERY DAY 16 mL 2 07/13/20 22 Active pyridoxine (VITAMIN B-6) 100 MG tabletIndicatio ns:vitamin deficiency Take 1 tablet (100 mg total) by mouth 2 (two) times a day. Indications: vitamin deficiency Active Multiple Vitamins-Minera ls (MULTIVITAMIN GUMMIES ADULT) Chew TabIndications: vitamin deficiency Chew 1 chewable tablet by mouth daily. Indications: vitamin deficiency 12/25/19 23 Active ondansetron (ZOFRAN) 8 MG tablet Active potassium chloride CR (K-TAB) 20 MEQ tablet Take 1 tablet (20 mEq total) by mouth 2 (two) times daily. 08/12/20 23 Active acetaminophen (TYLENOL) 325 MG tablet Take 2 tablets (650 mg total) by mouth as needed. 07/30/20 24 Active FLUoxetine (PROZAC) 40 MG capsuleIndicati ons:Recurrent major depressive disorder, in full remission Take 1 capsule (40 mg total) by mouth daily. 90 capsule 1 09/19/19 25 Active KLOR-CON M20 20 MEQ tablet Take 1 tablet (20 mEq total) by mouth 2 (two) times daily. Active Vitamin D3 (CHOLECALCIFERO L) 50 mcg tablet Take 1 tablet (50 mcg total) by mouth daily. Active famotidine (PEPCID) 20 MG tabletIndicatio ns:Gastroesopha geal reflux disease, unspecified whether esophagitis present TAKE 1 TABLET BY MOUTH TWICE A DAY 180 tablet 1 05/10/20 25 Active Additional Information Patient not taking.Reported on 07/31/2025 esomeprazole (NEXIUM) 40 MG capsuleIndicati ons:Gastroesoph ageal reflux disease, unspecified whether esophagitis present Take 1 capsule (40 mg total) by mouth daily. 90 capsule 06/22/20 25 Active loratadine (CLARITIN) 10 MG tabletIndicatio ns:Post-nasal drainage TAKE 1 TABLET BY MOUTH EVERY DAY NEEDED 90 tablet 3 07/10/20 25 Active gabapentin (NEURONTIN) 600 MG tabletIndicatio ns:Polyneuropat hy associated with underlying disease (HHS/HCC) TAKE 1 TABLET BY MOUTH TWICE A DAY 180 tablet 1 07/30/20 25 Active Simethicone (GAS-X OR) Active gabapentin (NEURONTIN) 600 MG tabletIndicatio ns:Polyneuropat hy associated with underlying disease (HHS/HCC) Take 1 tablet (600 mg total) by mouth 2 (two) times daily. 180 tablet 1 09/19/19 25 025 Discontinued Active Problems Problem Noted Date Diagnosed Date Stage 3a chronic kidney disease 08/01/2025 Hydronephrosis of right kidney 01/05/2025 History of breast cancer 12/21/2024 Assessment & Plan (06/22/2025 11:10 AM CDT): On surveillance - Her breast cancer is currently stable. - She continues to undergo routine mammograms for surveillance. Primary hypertension 12/21/2024 Polyneuropathy associated with underlying diseas e 12/21/2024 Assessment & Plan (06/22/2025 11:10 AM CDT): On gabapentin 600mg BID- better controlled. Sick sinus syndrome 09/19/2024 Moderate episode of recurrent major depressive d isorder 09/19/2024 Acquired absence of other sp ecified parts of digestive tract 08/01/2024 Acquired absence of right breast and nipple 07/14 Adverse effect of antineopla stic and immunosuppressive drugs, subsequent encounter 08/01/2024 Age-related osteoporosis wit h current pathological fracture, left forearm, subsequent encounter for fracture with routine healing 08/01/2024 Drug-induced polyneuropathy 08/01/2024 History of falling 08/01/2024 Malignant neoplasm of unspecified ovary 08/01/20 Assessment & Plan (06/22/2025 11:02 AM CDT): Undergoing radiation Rx. Awaiting PET scan in 2 months. group home (current) use of n on-steroidal anti-inflammatories (nsaid) 08/01/2024 Personal history of nicotine dependence 08/01/20 Presence of left artificial knee joint Urinary tract infection, site not specified 03/2024 Pain 12/29/2022 Diarrhea 12/29/2022 Status post total left knee replacement 12/23/19 23 Assessment & Plan (11/08/2023 2:40 PM FELTMAKER AND WEIGHER): Recommendation at this time is to continue with progressive range of motion and strengthening. Patient will be seen back in one year. Assessment & Plan (05/03/2023 5:03 PM CDT): Recommendation at this time is to continue with a progressive range of motion and strengthening. She was recently diagnosed with a recurrence of her cancer, so she's following up with that. We'll see her back in six months for a repeat evaluation with an x-ray of her knee. Assessment & Plan (02/01/2023 10:48 AM CDT): Recommendation at this time is to continue with the progressive range of motion and strengthening. We'll see her back in 3 months for repeat evaluation. Sooner if she's having issues. Assessment & Plan (01/05/2023 9:40 AM CDT): We'll see her back in 4 weeks for repeat evaluation and x-ray. Primary osteoarthritis of fi rst carpometacarpal joint of left hand 11/23/2022 Scapholunate ligament injury with no instability, initial encounter 11/23/2022 Assessment & Plan (11/23/2022 11:24 AM CDT): Offered steroid injections, and the patient declined this today. Continue with physical therapy as scheduled. Anxiety associated with depression 04/14/2021 Assessment & Plan (06/22/2025 11:10 AM CDT): - She is currently taking fluoxetine for stress and anxiety, which appears to be well-managed. No suicidal thoughts or unusual behaviors have been reported. 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 06/26/2020 Inadequate oral intake 05/17/2020 Cancer of peritoneum 04/18/2020 Assessment & Plan (06/22/2025 11:02 AM CDT): Under care by Oncologist Abdominal pain, unspecified abdominal location 0 04/17/2020 Constipation, unspecified constipation type 08/0 01/2020 Anemia, unspecified type 03/21/2020 Pure hypercholesterolemia 06/27/2019 Other non-recurrent acute no nsuppurative otitis media of right ear 05/31/2019 Assessment & Plan (05/31/2019 2:32 PM CDT): Given ear exam will treat with augmentin, also try flonase, con't tylenol PRN and drink plenty of fluids and get plenty of rest Malignant neoplasm of overla pping sites of right female breast 05/16/2019 Assessment & Plan (05/07/2022 10:06 AM CDT): Patient is trying to avoid any type of surgical intervention at this time. Abnormal EKG 05/16/2019 Chronic left-sided low back pain with left-sided sciatica 05/01/2019 Overview (04/14/2021): Last Assessment & Plan: Will try gabapentin Assessment & Plan (05/01/2019 12:39 PM CDT): Will try gabapentin ART (dyspnea on exertion) 05/01/2019 Assessment & Plan (05/01/2019 12:55 PM CDT): ECG in office only mild QT prolongation. Will get CXR. No radiation h/o to be concerned off. If CXR neg will refer to Cardiology for possible stress testing and if shows some chornic changes will get PFTs Irritable bowel syndrome 12/21/2012 Gastroesophageal reflux disease 07/18/2012 Assessment & Plan (06/22/2025 11:10 AM CDT): Currently on nexium 40mg daily + famotidine 20mg BID Recommend to avoid spicy meals and beverages. Orders: esomeprazole (NEXIUM) 40 MG capsule; Take 1 capsule (40 mg total) by mouth daily. Recurrent major depressive disorder, in full rem ission Assessment & Plan (05/01/2019 12:57 PM CDT): Doing well on lexapro Gastroesophageal reflux disease without esophagi tis Resolved Problems Problem Noted Date Diagnosed Date Resolved Date Primary osteoarthritis of left knee 05/06/2022 11/09/2023 Assessment & Plan (11/23/2022 11:35 AM CDT): We discussed the adverse effects of weight on osteoarthritis. For every 1 pound loss, 4 to 6 pounds of stress is relieved from the knee, slightly more at the ankle and slightly less at the hip. We discussed low carbohydrate diet to help with weight loss. 80% of weight loss is through diet. We discussed the risks, benefits, and alternatives. The only thing proven to slow the progression of osteoarthritis is weight loss. Every pound lost relieves 4 to 6 pounds of stress across the knee. We discussed unloading braces. Formal physical therapy to help with flexibility, mobility, and strength. We discussed TENS units. Nonsteroidal anti-inflammatories as well as Tylenol and pain medication and their side effects. We discussed steroid versus Visco supplement injection. We discussed eventual total knee arthroplasty. The patient elected for a Jose Robot assisted left total knee arthroplasty on 12/22/2022. We discussed the risks, benefits, and alternatives, including but not limited to infection, neurovascular injury, stiffness, persistent pain, need for further surgery, DVT and PE. All questions answered. We will obtain lab work, a chest x-ray, and EKG before the surgery. Assessment & Plan (09/02/2022 10:39 AM FELTMAKER AND WEIGHER): We discussed the risks, benefits and alternatives. [...] arthroplasty. Synvisc injected Follow-up in 3 months Assessment & Plan (05/07/2022 10:05 AM CDT): We discussed the risks, benefits and alternatives. [...] meloxicam Steroid injected today Preapproval for viscosupplementation Encounters Date Type Department Care Team Description 07/31/2025 1:40 PM FELTMAKER AND WEIGHER Office Visit [facility] - [address] [place] [address] Selina Palacios MD New Patient (Abnormal labs) 07/31/2025 Travel 07/26/2025 Scan [facility] Scanned, [facility] 07/11/2025 Scan [facility] Scanned, [facility] 07/06/2025 Scan [facility] Scanned, Doc [facility] CT (SCAN); Image (SCAN) 06/26/[address] [facility] [address] [phone] Ceci Garcia NP 06/22/2025 1:50 PM CDT - 06/22/2025 11:59 PM CDT Hospital Encounter [facility] [address] [place] [id number] Aleksey Tatum MD Discharge Disposition: Home or Self Care (Routine Discharge) 06/22/2025 11:10 AM CDT Laboratory Only [facility] [address] [phone] Aleksey Tatum MD 06/22/2025 10:20 AM CDT Office Visit [facility] [address] [phone] Aleksey Tatum MD Follow Up (med refill this a reschedule from [facility] canceled on 06/15/25) 06/22/2025 Results Follow-Up [facility] [address] [phone] Aleksey Tatum MD BASIC METABOLIC PANEL 06/22/2025 Travel from Last 3 Months Immunizations Immunization Administration Dates Next Due AFLURIA QUAD >36 MONTHS (MULTI-DOSE VIAL) 2018 Fluzone High Dose (IIV, trivalent, 0.5mL) 2023,04/20/2024 Fluzone High Dose - >Age 65 (Prefilled Syringe) 07/21/2023,05/25/2022 Influenza Adult (Generic) 04/20/2024,06/10/2019, 05/19/2016 MODERNA COVID-19 (12+) MRNA, LNP-S, PF, 100 MCG/ 0.5 ML DOSE 01/28/2021,01/02/2021 PFIZER COVID-19 (JULIAN CAP), MRNA, LNP-S, PF, 30 MCG/0.3 ML CASSIE-SUCROSE, IM 01/05/2022 PFIZER COVID-19 BIVALENT (12 +) mRNA, LNP-S, PF, 30 MCG/0.3 ML DOSE 09/15/2022 Pneumococcal (Prevnar 20) 04/11/2022 Shingrix 06/15/2022,04/11/2022 Tdap (Adacel) 04/15/2021 Zoster (Zostavax) [address] Unt/0.65Ml 06/11/2019, Family History Medical History Relation Comments Arthritis Father Early Father Tuberculosis Father Cancer Maternal Grandfather Diabetes Maternal Grandmother Pacemaker Maternal Grandmother Arthritis Mother Breast Cancer Mother Cancer Mother Ovarian Cancer Mother Heart Attack Paternal Grandfather Stroke Paternal Grandmother Relation Status Comments Brother Alive Father (Age 53) Maternal Grandfather Maternal Grandmother Mother (Age 59) Paternal Grandfather Paternal Grandmother Social History Tobacco Use Types Packs/Day Years Used Date Smoking Tobacco: Former Cigarettes 0.5 15 0 01/10/1977 - 01/11/1992 Passive Smoke Exposure: Past Smokeless Tobacco: Never Tobacco Cessation:Counseling Given: No Comments:non smoker Alcohol Use Standard Drinks/Week Comments Never 0 (1 standard drink = 0.6 oz [...] week 12/29/2022 How often do you attend [facility] or amish services? More than 4 times per year 12/29/2022 Do you belong to any clubs o r organizations such as islam groups, unions, fraternal or athletic groups, or school groups? No 12/29/2022 How often do you attend meet ings of the clubs or organizations you belong to? 1 to 4 times per year 12/29/2022 Are you , , di vorced, , never , or living with a partner? 12/29/2022 AUDIT-C Answer Date Recorded Q1: How often do you have a drink containing alcohol? Never 04/27/2023 Q2: How many drinks containi ng alcohol do you have on a typical day when you are drinking? Patient does not drink Q3: How often do you have si x or more drinks on one occasion? Never 04/27/2023 Overall Financial Resource Strain (CARDIA) Answe r Date Recorded How hard is it for you to pa y for the very basics like food, housing, medical care, and heating? Not hard at all 12/29/2022 PHQ-2 Answer Date Recorded Patient Health Questionnaire-2 Score 0 07/31/2025 [facility] Occupational Stress Questionnaire Answer Date Recorded [...] place to sleep or slept in a penitentiary (including now)? 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 on file Not on file Not on file Not on file Not on file Not on file Not on file Last Filed Vital Signs Vital Sign Reading Time Taken Comments Blood Pressure 90/50 07/31/2025 1:37 PM FELTMAKER AND WEIGHER Pulse 91 07/31/2025 1:37 PM FELTMAKER AND WEIGHER Temperature 35.6 C (96 F) 07/31/2025 1:37 PM FELTMAKER AND WEIGHER Respiratory Rate 16 06/22/2025 10:22 AM CDT Oxygen Saturation 93% 07/31/2025 1:37 PM FELTMAKER AND WEIGHER Inhaled Oxygen Concentration - - Weight 51.3 kg (113 lb) 07/31/2025 1:37 PM FELTMAKER AND WEIGHER Height 167.6 cm (5' 6) 06/22/2025 10:22 AM CDT Body Mass Index 18.24 06/22/2025 10:22 AM CDT Plan of Treatment Upcoming Encounters Date Type Department Care Team (Late st Contact Info) Description 09/19/2025 10:20 AM FELTMAKER AND WEIGHER Office Visit [facility] - [place] [id number] [place] [phone] [place] [address] [facility] [address] [place] [address] Health Maintenance Due Date Last Done Comments Colorectal Cancer Screening Colonoscopy (10 Years) 1955 Annual Medicare Wellness Visit 04/28/2024 04/27/2023 COVID-19 Vaccine ( season) 2025 09/15/2022, 01/05/2022, 01/28/2021, Additional history exists Influenza Adult (#1) 2025 04/20/2024, 04/20/2024, 04/20/2024, Additional history exists Mammogram Screening 05/16/2027 05/16/2025, 04/28/2024, 03/24/2023, Additional history exists RSV Immunization or 60+ Years (1 - 1-dose 75+ series) 02/06/2031 DTaP, Tdap and Td Vaccines (2 - Td or Tdap) 04/15/2031 04/15/2021 Hepatitis C Completed 05/01/2019 Pneumococcal Vaccine: 50+ Years Completed 04/11/2022 Dexa Scan (General) Completed 04/30/2022 Zoster Vaccines Completed 06/15/2022, 03/15, 06/11/2019, Additional history exists AAA SCREENING Completed 05/04/2025, 04/14, 02/19/2025, Additional history exists PHQ-2 (Physician [place]) Completed 07/31/2025 Hepatitis A Vaccines Aged Out No long er eligible based on patient's age to complete this topic Meningococcal B Vaccine Aged Out No l onger eligible based on patient's age to complete this topic Meningococcal Vaccine Aged Out No augie rajesh eligible based on patient's age to complete this topic RSV Immunizations Under 20 Months Aged Out No longer eligible based on patient's age to complete this topic Medical Devices Implanted Type Area Curator Herbarium Device Identifier Shelf Expiration Date Model / Serial / Lot Baseplate Tibial Triathlon 5 Knee Tritanium - [id number] Implanted:Qty: 1 on 12/22/2022 by Arvind Hewitt DO at [facility] Knee Components Left: Knee [employer] [id number] 09/20/2027 5536-B-5 00 / / [id number] Component Femoral Triathlon [employer] - [id number] Implanted:Qty: 1 on 12/22/2022 by Arvind Hewitt DO at [facility] Knee Components Left: Knee [employer] [id number] 10/16/2027 5517-F-4 01 / / [id number] Component Patellar 9mm 29mm Asymmetric Triathlon Tritanium Metal Knee Sterile - [id number] Implanted:Qty: 1 on 12/22/2022 by Arvind Hewitt DO at [facility] Patella Left: Knee [employer] [id number] 10/28/2027 5552-L-2 99 / / [id number] On-Q Antimicrobial Expansion Kits With Silversoaker Antimicrobial Catheter Implanted:Qty: 1 on 12/22/2022 by Arvind Hewitt DO at [facility] Left: Knee [employer] [id number] 10/04/2024 UE671-Q / / [id number] Triathlon X3 Tibial Bearing Insert Cs Implanted:Qty: 1 on 12/22/2022 by Arvind Hewitt DO at [facility] Left: Knee [employer] [id number] 09/24/2026 5531-G-5 11-E / / [id number] Explanted Type Area Curator Herbarium Device Identifier Shelf Expiration Date Model / Serial / Lot Pin [place] [employer] Jose 110 X 4 - [id number] Explanted:Qty: 1 on 12/22/2022 at [facility] Pin Left: Knee [employer] [id number] 10/14/2027 [id number] / / [id number] Pin [employer] Bone Jose 170 X 4 - [id number] Explanted:Qty: 1 on 12/22/2022 at [facility] Pin Left: Knee [employer] [id number] 09/02/2027 [id number] / / [id number] Checkpoint Kit Explanted:Qty: 1 on 12/22/2022 at [facility] Left: Knee [employer] [id number] 08/26/2027 [id number] / / [id number] Procedures Procedure Name Priority Date/Time Associated Diagnosis Comments CT GENERIC 07/06/2025 CT GENERIC 07/06/2025 IMAGE GENERIC 07/06/2025 COLLECTION VENOUS BLOOD VENIPUNCTURE Routine 06/22/2025 11:19 AM CDT Elevated serum creatinine HC BASIC METABOLIC PANEL Routine 06/22/2025 11:10 AM CDT Elevated serum creatinine CT CHEST+ABD+PEL WO CON STAT 02/19/2025 12:16 PM CDT MAMMOGRAM GENERIC (SCAN ORDER) 03/24/2023 BONE DENSITY/DEXA Routine 04/30/2022 12: 37 PM CDT Post-menopause HEPATITIS C ANTIBODY Routine 05/01/2019 11:00 AM CDT Need for hepatitis C screening test from Last 3 Months or Most Recently Relevant to Health Maintenance Results * CT GENERIC (07/06/2025) Only the most recent of2 resultswithin the time period is included. Anatomical Region Laterality Modality Other 07/06/2025 [facility] Scanned SCANNING Final Resu lt * IMAGE GENERIC (07/06/2025) Anatomical Region Laterality Modality Other 07/06/2025 us [employer] [facility] Scanned SCANNING Final Resu lt * (ABNORMAL) BASIC METABOLIC PANEL (06/22/2025 11:10 AM CDT) GLUCOSE 92 70 - 99 MG/DL 06/22/2025 2:30 PM CDT [facility] BUN 10 7 - 18 MG/DL 06/22/2025 2:30 PM CDT [facility] CREATININE S/P/B 1.26(H) 0.55 - 1.02 MG/DL 06/22/2025 2:30 PM CDT [facility] SODIUM S/P/B 135(L) 136 - 145 MMOL/L 06/22/2025 2:30 PM CDT [facility] POTASSIUM S/P/B 4.5 3.5 - 5.1 MMOL/L 06/22/2025 2:30 PM CDT [facility] CHLORIDE S/P/B 102 100 - 108 MMOL/L 06/22/2025 2:30 PM CDT [facility] CO2 20.7(L) 21 - 32 MMOL/L 06/22/2025 2:30 PM CDT [facility] CALCIUM S/P/B 8.6 8.5 - 10.1 MG/DL 06/22/2025 2:30 PM CDT [facility] ANION GAP 12.3 5 - 15 MMOL/L 06/22/2025 2:30 PM CDT [facility] BUN CREATININE RATIO 7.9 6 - 26 06/22/2025 2:30 PM CDT [facility] GFR ESTIMATE 46(L) >90 ML/MIN/1.7 3 M2 06/22/2025 2:30 PM CDT [facility] Comment: NOTE: eGFR is not calculated for patients <18 years of age. This is an estimated GFR calculation using the new CKD EPI creatinine equation without race and so does not require a correction factor for race. This estimated GFR should not be used for calculating drug doses. 06/22/2025 11:1 0 AM CDT Aleksey Tatum MD LABORATORY Final Resul t [facility] [address] [place] [address], * CT CHEST+ABD+PEL WO CON (02/19/2025 12:16 PM CDT) Anatomical Region Laterality Modality Chest, Abdomen, Pelvis Computed Tomography 02/19/2025 12:3 1 PM CDT Impressions 02/19/2025 12:55 PM CDT IMPRESSION: 1. Fluid in nondilated scattered loops of small bowel may be due to enteritis versus ileus. No bowel obstruction. No free fluid or free air. 2. Development of moderately severe right-sided hydronephrosis and hydroureter. Right ureteral stent in place. Question patency of the stent. Urology consultation may BE of benefit. 3. No gross evidence of peritoneal lesions. Spleen without enlargement or mass. No pathologic lymphadenopathy.. 4. Subacute partially healed fractures of the left inferior and superior pubic ramus. Findings consistent with subacute sacral insufficiency fracture. I have no recent plain films for correlation. Ordered By: ZOLTAN ALLAN Interpreted By: Kaylene Torres, 02/19/2025 12:31 PM Narrative 02/19/2025 12:55 PM CDT [facility] [address] [place] [address] EXAMINATION: CT CHEST ABDOMEN PELVISwithout Contrast EXAM DATE/TIME: 02/19/2025 12:03 PM REASON FOR EXAM: ORDERING PROVIDER COMMENT: Patient with peritoneal carcinoma. intractable nausea vomiting for 2 weeks. Ovarian carcinoma. Breast carcinoma. Hysterectomy. Cholecystectomy. COMPARISON: CT abdomen and pelvis of 12/29/2022 TECHNIQUE: A dose lowering technique was used for this procedure, which may include, but is not limited to, dose reduction technique, automated exposure control, iterative reconstruction, ALARA (As Low As Reasonably Achievable), or Image Gently techniques. FINDINGS: CHEST: On lung windows, no suspicious pulmonary lesion, pneumothorax, or pleural effusion. On soft tissue windows, no axillary or supraclavicular lymphadenopathy. Surgical clips in the right axilla. Right-sided jugular MediPort catheter with tip in distal superior vena cava. Right breast prosthesis. On mediastinal windows, no evidence of hilar or mediastinal lymphadenopathy. Heart size normal. No pericardial effusion. On bone windows, no suspicious skeletal lesion or acute compression fracture deformity. ABDOMEN: Development of moderately severe right-sided hydronephrosis and hydroureter. Right ureteral stent is in place. Distal portion is located within the urinary bladder. No distinct adjacent right renal collecting system calculi. Grossly normal left kidney. Normal adrenals. Stomach and duodenum are unremarkable. Spleen is unremarkable. Pancreas is within normal limits. Cholecystectomy Hepatic parenchyma are within normal limits with no evidence of intrahepatic biliary dilatation or mass. Portal vein patent. Fluid in nondilated scattered loops of small bowel with few air-fluid levels. May be due to enteritis versus ileus. No free fluid or free air. No evidence of retroperitoneal lymphadenopathy.. Normal caliber to abdominal aorta. Scattered fecal material and gas throughout the colon without evidence of mass or dilatation.. Stable postsurgical change at rectosigmoid junction. Surgical clips in the pelvis.. Stable surgical clips adjacent to small bowel in the right lower quadrant. Appendix not inflamed. Pelvis: Urinary bladder without gross abnormality. Hysterectomy. No adnexal lesions. Evidence of prior left inguinal hernia repair. No recurrence. On bone windows, no evidence of suspicious skeletal lesion or acute compression fracture deformity.. Subacute partially healed fractures of the left inferior and superior pubic ramus with extension to the superior left acetabulum. Also sclerosis from probable sacral insufficiency fractures within the bilateral sacral regions adjacent to the sacroiliac joints. Procedure Note Michael Torres MD - 02/19/2025 [facility] [address] [place] [address] EXAMINATION: CT CHEST ABDOMEN PELVISwithout Contrast EXAM DATE/TIME: 02/19/2025 12:03 PM REASON FOR EXAM: ORDERING PROVIDER COMMENT: Patient with peritoneal carcinoma. intractablenausea vomiting for 2 weeks. Ovarian carcinoma. Breast carcinoma. Hysterectomy. Cholecystectomy. COMPARISON: CT abdomen and pelvis of 12/29/2022 TECHNIQUE: A dose lowering technique was used for this procedure, whichmay include, but is not limited to, dose reduction technique, automatedexposure control, iterative reconstruction, ALARA (As Low As ReasonablyAchievable), or Image Gently techniques. FINDINGS: CHEST: On lung windows, no suspicious pulmonary lesion, pneumothorax, or pleuraleffusion. On soft tissue windows, no axillary or supraclavicular lymphadenopathy.Surgical clips in the right axilla. Right-sided jugular MediPort catheterwith tip in distal superior vena cava. Right breast prosthesis. On mediastinal windows, no evidence of hilar or mediastinallymphadenopathy. Heart size normal. No pericardial effusion. On bone windows, no suspicious skeletal lesion or acute compressionfracture deformity. ABDOMEN: Development of moderately severe right-sided hydronephrosis andhydroureter. Right ureteral stent is in place. Distal portion is locatedwithin the urinary bladder. No distinct adjacent right renal collectingsystem calculi. Grossly normal left kidney. Normal adrenals. Stomach and duodenum are unremarkable. Spleen is unremarkable. Pancreas iswithin normal limits. Cholecystectomy Hepatic parenchyma are within normal limits with no evidence ofintrahepatic biliary dilatation or mass. Portal vein patent. Fluid in nondilated scattered loops of small bowel with few air-fluidlevels. May be due to enteritis versus ileus. No free fluid or free air. No evidence of retroperitoneal lymphadenopathy.. Normal caliber toabdominal aorta. Scattered fecal material and gas throughout the colon without evidence ofmass or dilatation.. Stable postsurgical change at rectosigmoid junction.Surgical clips in the pelvis.. Stable surgical clips adjacent to smallbowel in the right lower quadrant. Appendix not inflamed. Pelvis: Urinary bladder without gross abnormality. Hysterectomy. Noadnexal lesions. Evidence of prior left inguinal hernia repair. Norecurrence. On bone windows, no evidence of suspicious skeletal lesion or acutecompression fracture deformity.. Subacute partially healed fractures of the left inferior and superiorpubic ramus with extension to the superior left acetabulum. Also sclerosis from probable sacral insufficiency fractures within thebilateral sacral regions adjacent to the sacroiliac joints. IMPRESSION: 1. Fluid in nondilated scattered loops of small bowel may be due toenteritis versus ileus. No bowel obstruction. No free fluid or free air. 2. Development of moderately severe right-sided hydronephrosis andhydroureter. Right ureteral stent in place. Question patency of the stent.Urology consultation may BE of benefit. 3. No gross evidence of peritoneal lesions. Spleen without enlargement ormass. No pathologic lymphadenopathy.. 4. Subacute partially healed fractures of the left inferior and superiorpubic ramus. Findings consistent with subacute sacral insufficiencyfracture. I have no recent plain films for correlation. Ordered By: ZOLTAN ALLAN Interpreted By: Kaylene Torres, 02/19/2025 12:31 PM Zoltan Allan MD CT Final Result * BONE DENSITY/DEXA (04/30/2022 12:37 PM CDT) Anatomical Region Laterality Modality Bone Bone Density 04/30/2022 1:00 PM CDT Impressions 04/30/2022 1:01 PM CDT IMPRESSION: 1. Moderate osteoporosis corresponding to moderately high fracture risk, as discussed above. 2. Consider therapy for osteoporosis with follow-up imaging in 1-2 years. Ordered By: LAURITA BALBUENA Interpreted By: Naresh Perez, 04/30/2022 1:00 PM Narrative 04/30/2022 1:01 PM CDT BONE DENSITY/DEXA EXAM DATE/TIME: 04/30/2022 12:21 PM CLINICAL HISTORY: 67-year-old asymptomatic female. COMPARISON: None. FINDINGS: L2-L4: Bone mineral density 0.72 g/sq cm. T score -3.2. Z score -1.3. Moderate osteoporosis. Moderately high fracture risk. Left femoral neck: Bone mineral density 0.51 g/sq cm. T score -3.0. Z score -1.4. Moderate osteoporosis. Moderately high fracture risk. Procedure Note Faheem Perez MD - 04/30/2022 BONE DENSITY/DEXA EXAM DATE/TIME: 04/30/2022 12:21 PM CLINICAL HISTORY: 67-year-old asymptomatic female. COMPARISON: None. FINDINGS: L2-L4: Bone mineral density 0.72 g/sq cm. T score -3.2. Z score -1.3. Moderate osteoporosis. Moderately high fracture risk. Left femoral neck: Bone mineral density 0.51 g/sq cm. T score -3.0. Z score -1.4. Moderate osteoporosis. Moderately high fracture risk. IMPRESSION: 1. Moderate osteoporosis corresponding to moderately high fracture risk,as discussed above. 2. Consider therapy for osteoporosis with follow-up imaging in 1-2years. Ordered By: LAURITA BALBUENA Interpreted By: Naresh Perez, 04/30/2022 1:00 PM Laurita CAM DEXA Final Result * HEPATITIS C ANTIBODY (05/01/2019 11:00 AM CDT) HEPATITIS C AB NON-REACTI VE NON-REACTI VE 05/02/2019 9:53 AM CDT [facility] 05/01/2019 11:0 0 AM CDT Celia Bowers MD LABORATORY Final Result [facility] [address] [place] [address], [place] [phone] from Last 3 Months or Most Recently Relevant to Health Maintenance Insurance GENERIC - COMMERCIAL MEDICARE Advance Directives * Full Code (Latest Code Status on File) Date Activated Date Inactivated Comments 01/04/2023 1:50 PM 02/19/2025 10:24 AM * Full Code Date Activated Date Inactivated Comments 12/29/2022 7:40 AM 12/30/2022 12:28 PM * Full Code Date Activated Date Inactivated Comments 12/24/2022 11:02 AM 12/29/2022 2:43 AM * Full Code Date Activated Date Inactivated Comments 12/22/2022 11:13 AM 12/23/2022 3:01 PM Care Teams Electrical Sign Wirer Relationship Specialty [place] [id number] [address] PCP - General Nurse Practitioner Family 11/27/24 Cipriano Potts MD [address] [facility] [address] [place] [address] [place] Lad[employer] Cleaner CARDIOVASCULAR DISEASE 05/10/19
--- OUTSIDE RECORDS SUMMARY | 2025-08-15 17:04 | XMS_ITS | Encounter Summary ---
Author Organization [facility] Address [address] [place] [address] Phone Care Team Providers Care Firm Administrator Name Role Phone Laurita German Primary Care Provider [phone] Unknown, Notinfile Unavailable Unavailable Suhail Marie MD Unavailable [phone] Robin Pimentel MD Unavailable Tsering Hoff Primary Care Provider [phone] Primary Care Provide r Encounter Details Date Type Department Care Team (Late st Contact Info) Description 05/29/2020 Documentation [facility] [address] [place] [address] Dilan Marroquin RPh Social History Tobacco Use [...] on file 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 Gender Identity Not on file Sexual Orientation [...] Cox NP Moisture 3 05/29/2020 9:45 AM Leixs Goss NP Activity 3 05/29/2020 9:45 AM [...] Author BP Method Automatic 05/29/2020 1:00 PM TYSONT Lexis Grace NP * BP Location Answer [...] * Question Answer Entry Date Author Neuro ([facility]) [facility] 05/29/2020 9:45 AM Lexis Goss NP * Question Answer Entry Date Author Neuro ([facility]) [facility] 05/29/2020 9:00 AM CDT Rocky Salazar RN documented in this encounter Plan of Treatment Not on file documented as of this encounter Visit Diagnoses Not on filedocumented in this encounter Additional Health Concerns Infection Onset Date Last Indicated Resolved Time COVID: Suspected 11/13/2021 11/13/2021 11/13/2021 2:41 PM SHAKE 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 difficile suspected 02/19/2025 02/19/202502/21 2:35 PM CDT Ring Surveillance: C. auris Comment:[id number] 02/20/2025 02/20/2025 02/27/2025 7:26 PM C DT C. 

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
--- OUTSIDE RECORDS SUMMARY | 2025-08-15 17:04 | XMS_ITS | Encounter Summary ---
Author Organization [facility] Healthcare Address [address] [place] [address] Care Team Providers Care Commercial Horticulture Instructor Name Role Phone Laurita German Primary Care Provider [phone] Unknown, Notinfile Unavailable Unavailable Suhail Marie MD Unavailable [phone]- [phone] Robin Pimentel MD Unavailable Tsering Hoff Primary Care Provider [phone] Ceci Garcia WORKFORCE INVESTMENT ACT CAREER MANAGER Primary Care Provide r Encounter Details Date Type Department Care Team (Late st Contact Info) Description 06/10/2020 Telephone [facility] Radiology [address] [address] Joselin Garza RN Social History Tobacco Use [...] on file Legal Sex Female 4:24 AM BOND WRITER Gender Identity Not on file Sexual Orientation Not on file 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 difficile suspected 02/19/2025 02/19/202502/21 2:35 PM CDT Ring Surveillance: C. auris Comment:[id number] 02/20/2025 02/20/2025 02/27/2025 7:26 PM C DT C. difficile suspected 03/31/2025 03/31/202503/31 7:21 PM CDT VRE 03/31/2025 03/31/2025 documented as of this encounter Care Teams Commercial Horticulture Instructor Relationship Specialty Start Date End Date Laurita German PA PCP - General 04/18/20 04/19/24 [place] [address] [place] [address] PCP - General Physician Painter Assistant 04/20/24 01/04/25 [place] [address] [address] [address] PCP - General Nurse Practitioner 01/05/25 Unknown, Notinfile Referring Physician 10/17/20 07/27/23 Suhail Marie MD [address] [place] [address] Internal Medicine 07/28/23 Robin Pimentel MD [address] [place] [address] Internal Medicine 07/28/23 documented as of this encounter
--- OUTSIDE RECORDS SUMMARY | 2025-08-15 17:04 | XMS_ITS | Encounter Summary ---
Author Organization [facility] Address [address] [place] [address] Care Team Providers Care Metal Moulder Name Role Phone Cipriano Potts MD Unavailable [phone] Korin Meehan NP Primary Care Provider Laurita Bills Primary Care Provider + [phone] Tsering Hoff-C Primary Care Provider [phone] Ceci Garcia NP Primary Care Provider + [phone] Encounter Details Date Type Department Care Team (Late st Contact Info) Description 06/14/2019 Abstract [facility] at [address] [address] Eduardo Watson MA Social History Tobacco Use Types Packs/Day Years Used Date Smoking Tobacco: Never Smokeless Tobacco: Never Alcohol Use Standard Drinks/Week Comments No 0 (1 standard drink = 0.6 oz pur e alcohol) AUDIT-C Answer Date Recorded Frequency of Alcohol Consumption Never 05/01/2019 Average Number of Drinks Not on file 019 Frequency of Binge Drinking Not on file 04/13 Education Answer Date Recorded What is the highest level of school you have completed or the highest degree you have received? High school graduate 05/01/2019 Comments Unknown Sex and Gender Information Value [...] as of this encounter Plan of Treatment Upcoming Encounters Date Type Department Care Team (Late st Contact Info) Description 09/19/2025 10:20 AM ELECTRONIC DEVICE MONITOR Office Visit [facility] [address] [place] [address] [place] [address] [facility] [address] [place] [address] documented as of this encounter Procedures Procedure Name Priority Date/Time Associated Diagnosis Comments D-DIMER, QUANTITATIVE Routine 06/13/2019 documented in this encounter Results * D-DIMER, QUANTITATIVE (06/13/2019) D-DIMER 0.39 <0.50 06/13/2019 us Doc [facility] LABORATORY Final Result documented in this encounter Visit Diagnoses Not on filedocumented in this encounter Additional Health Concerns Infection Onset Date Last Indicated Resolved Time COVID-19 Rule Out 03/05/2020 03/05/2020 03/07/2020 8:05 AM CDT COVID-19 Rule Out 04/01/2020 04/01/2020 04/03/2020 9:18 AM CDT COVID-19 Rule Out 04/22/2021 04/22/2021 04/22/2021 9:54 AM CDT COVID-19 Rule Out 05/17/2021 05/17/2021 05/17/2021 6:01 PM CDT Assessment Noted Time PHQ-9 Depression Total Score: 3 05/01/20 9:56 AM CDT documented as of this encounter Care Teams Metal Moulder Relationship Specialty Start Date End Date Korin Meehan NP [address] [facility] [address] [place] [address] PCP - General NURSE PRACTITIONER 01/30/20 03/19/20 [place] [address] [place] [address] PCP - General PHYSICIAN LAPEL BASTER 03/20/20 07/20/23 Tsering Hoff PA-C [address] [place] [address] PCP - General PHYSICIAN LAPEL BASTER 07/21/23 11/26/24 [place] [address] [address] PCP - General Nurse Practitioner Family 11/27/24 Cipriano Potts MD 3 [facility] Suite [facility] [place] [address] Warden Service Person CARDIOVASCULAR DISEASE 05/10/19 documented as of this encounter
--- OUTSIDE RECORDS SUMMARY | 2025-08-15 17:04 | XMS_ITS | Encounter Summary ---
Author Organization [facility] Address [facility]ly [facility] [place] [address] Care Team Providers Care Passenger Service Manager Name Role Phone Cipriano Potts MD Unavailable Ceci Garcia NP Primary Care Provider [phone] Reason for Referral * Consultation (Routine) - Authorized Specialty Diagnoses / Procedures Referred By Chasity vanegas Referred To Contact NEPHROLOGY Diagnoses Stage 3a chronic kidney disease (CMS/HCC) Procedures OFFICE/OUTPATIENT NEW LOW MDM 30-44 MINUTES OFFICE/OUTPT VISIT,NEW,LEVL IV OFFICE/OUTPT VISIT,NEW,LEVL V OFFICE/OUTPT VISIT,EST,LEVL III OFFICE/OUTPT VISIT,EST,LEVL IV OFFICE/OUTPT VISIT,EST[place] [address] [facility] [address] [place] [address] Phone: tel: fax: [facility] [address] [address] Phone: tel:[phone] fax:[phone] Referral ID Status Reason Start Date Expiration Date Visits Requested Visits Authorized [id number] Authorized Specialty Services 5 07/24/2026 99 99 Encounter Details Date Type Department Care Team (Late st Contact Info) Description 06/22/2025 Results Follow-Up [facility] Family & Internal Medicine [facility] [address] [place] [address] [place] [address] [facility] [address] [place] [address] BASIC METABOLIC PANEL Social History Tobacco Use Types Packs/Day Years [...] 12/29/2022 How often do you attend chur ch or taoist services? More than 4 times per year 12/29/2022 Do you belong to any clubs o r organizations such as jewish groups, unions, fraternal or athletic groups, or [...] Date Recorded Patient Health Questionnaire-2 Score 1 12/21/2024 [facility] - Occupational [...] place to sleep or slept in a retirement (including now)? 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 Answer Date of Assessment Author Status No 12/29/2022 7:35 AM TYSONT Leesa Villalobos RN Active * Because of a physical, mental, or emotional condition, do you have difficulty doing errands alone such as visiting a doctor's office or shopping? Answer Date of Assessment Author Status No 12/29/2022 7:35 AM CDT Villalobos, Leesa L, RN Active documented as of this encounter Mental Status * Because of a physical, mental, or emotional condition, do you have serious difficulty concentrating, remembering, or making decisions? Answer Entry Date Author Status No 12/29/2022 7:35 AM CDT Leesa Villalobos RN Active documented in this encounter Progress Notes * Aleksey Tatum MD - 06/22/2025 3:44 PM CDT Still somewhat elevated creatinine Stay away from NSAIDs Hydrate well Will refer to [facility] [place] documented in this encounter Plan of Treatment Upcoming Encounters Date Type Department Care Team (Late st Contact Info) Description 09/19/2025 10:20 AM ASSISTANT PROFESSOR OF LIFE SCIENCES Office Visit [facility] Family & Internal Medicine [address] [address] Ceci Garcia NP [address] [place], [place] [address] Scheduled Referrals Name Type Priority Associated Diagnoses Orde r Schedule Ambulatory referral to Nephrology ([facility]) Referral Routine Stage 3a chronic kidney disease (CMS/HCC) Ordered: 06/22/2025 documented as of this encounter Visit Diagnoses Diagnosis Stage 3a chronic kidney disease (CMS/HCC)- Primary documented in this encounter Additional Health Concerns Assessment Noted Time PHQ-9 Depression Total Score: 4 12/22/19 10:50 AM CDT documented as of this encounter Care Teams Passenger Service Manager Relationship Specialty Start Date End Date Ceci Garcia NP [address] [place] [address] [place] [address] PCP - General Nurse Practitioner Family 11/27/24 Cipriano Potts MD 3 [facility] [address] [place] [address] [place] Kitchen Food Assembler CARDIOVASCULAR DISEASE 05/10/19 documented as of this encounter
--- OUTSIDE RECORDS SUMMARY | 2025-08-15 17:04 | XMS_ITS | Encounter Summary ---
Author Organization [facility] Address [address] [place] [address] Care Team Providers Care Automation Engineering Manager Name Role Phone Cipriano Potts MD Unavailable [phone] Laurita German Primary Care Provider [phone] Tsering Hoff-C Primary Care Provider [phone] Ceci Garcia NP Primary Care Provider + [phone] Encounter Details Date Type Department Care Team (Late st Contact Info) Description 03/27/2020 Prep for Procedure [facility] [address] [place] [address] Kaylah Baker MD [address] [facility] [address] [place] [address] [place] [address] Social History Tobacco Use Types Packs/Day Years Used Date Smoking Tobacco: Never Smokeless Tobacco: Never Alcohol Use Standard Drinks/Week Comments No 0 (1 standard drink = 0.6 oz pur e alcohol) AUDIT-C Answer Date Recorded Frequency of Alcohol Consumption Never 05/01/2019 Average Number of Drinks Not on file 019 Frequency of Binge Drinking Not on file 04/13 PHQ-2 Answer Date Recorded PHQ-2 Score 1 08/22/2019 Education Answer Date Recorded What is the [...] 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 No / Unsure 03/27/2020 3:32 PM CDT documented as of this encounter Plan of Treatment Upcoming Encounters Date Type Department Care Team (Late st Contact Info) Description 09/19/2025 10:20 AM CLIENT LIAISON Office Visit [facility] Medical Group Family & Internal Medicine [facility] [address] [place] [address] [place] [id number] [place] [address] documented as of this encounter Results * PRE-SURGICAL/PRE-PROCEDURE CORONAVIRUS (COVID 19) (04/01/2020 7:46 AM CDT) CORONAVIRUS SARS COV 2 PCR (RESP) NOT DETECTED NOT DETECTED 04/03/2020 9:18 AM CDT [facility] Comment: A Not Detected (negative) test result for this test means that SARS- CoV-2 RNA was not present in the specimen above the limit of detection. A negative result does not rule out the possibility of COVID-19 and should not be used as the sole basis for treatment or patient management decisions. If COVID-19 is still suspected, based on exposure history together with other clinical findings, re-testing should be considered in consultation with public health authorities. Laboratory test results should always be considered in the context of clinical observations and epidemiological data in making a final diagnosis and patient management decisions. Please review the Fact Sheets and FDA authorized labeling available for health care providers and patients using the following websites: https://www.[facility].com/home/Covid-19/HCP/NAAT/fact-sheet2 https://www.[facility].[employer]/home/Covid-19/Patients/NAAT/ fact-sheet2 This test has been authorized by the FDA under an Emergency Use Authorization (EUA) for use by authorized laboratories. Due to the current public health emergency, [facility] is receiving a high volume of samples from a wide variety of swabs and media for COVID-19 testing. In order to serve patients during this public health crisis, samples from appropriate clinical sources are being tested. Negative test results derived from specimens received in non-commercially manufactured viral collection and transport media, or in media and sample collection kits not yet authorized by FDA for COVID-19 testing should be cautiously evaluated and the patient potentially subjected to extra precautions such as additional clinical monitoring, including collection of an additional specimen. Methodology: Nucleic Acid Amplification Test (NAAT) includes PCR or TMA Additional information about COVID-19 can be found at the [facility] website: www.[facility]/Covid19. Test performed at [facility] [address] [place] [address] Director: CARLITOS AGUIRRE DO,MPH NASOPHARYNGEAL SWAB / Unknown 04/01/2020 7:46 AM CDT us Kaylah Baker MD MICROBIOLOGY - GENERAL ORDER BRYCE Final Result [facility] [address] [place] [id number] [place] [address] documented in this encounter Visit Diagnoses Diagnosis Pre-op testing- Primary Preoperative examination, unspecified documented in this encounter Additional Health Concerns Infection Onset Date Last Indicated Resolved Time COVID-19 Rule Out 04/01/2020 04/01/2020 04/03/2020 9:18 AM CDT COVID-19 Rule Out 04/22/2021 04/22/2021 04/22/2021 9:54 AM CDT COVID-19 Rule Out 05/17/2021 05/17/2021 05/17/2021 6:01 PM CDT Assessment Noted Time PHQ-9 Depression Total Score: 3 05/01/20 9:56 AM CDT documented as of this encounter Care Teams Automation Engineering Manager Relationship Specialty [place] [address] [place] [address] PCP - General PHYSICIAN ARMORED CAR DRIVER 03/20/20 07/20/23 Tsering Hoff PA-C [address] [place] [address] PCP - General PHYSICIAN ARMORED CAR DRIVER 07/21/23 11/26/24 [place] [address] [address] [address]. [place] [address] PCP - General Nurse Practitioner Family 11/27/24 Cipriano Potts MD 3 [facility] [address] [place] [address] Bowdle Time Study Engineer CARDIOVASCULAR DISEASE 05/10/19 documented as of this encounter
--- OUTSIDE RECORDS SUMMARY | 2025-08-15 17:04 | XMS_ITS | Encounter Summary ---
Author Organization [facility] Healthcare Address [address] [place] [address] Care Team Providers Care Rn Plasma Center Name Role Phone Suhail Marie MD Unavailable [phone] Robin Pimentel MD Unavailable [phone] Tsering Hoff Primary Care Provider [phone] Ceci Garcia NP Primary Care Provide r Encounter Details Date Type Department Care Team (Late st Contact Info) Description 06/05/2024 Treatment [facility] PATHOLOGY [address] [facility] [address] [place] [address] Mary Jennings MD [address] [facility]. 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 Patient has [...] this patient. Contact Information: Please contact the [facility] Transfusion Medicine Service at (option [...] documented as of this encounter Care Teams Rn Plasma Center Relationship Specialty [place] [address] [place] [address] PCP - General Physician Signal Engineer 04/20/24 01/04/25 [place] [address] [address] PCP - General Nurse Practitioner 01/05/25 Suhail Marie MD [address] [place] [address] Internal Medicine 07/28/23 Robin Pimentel MD [address] [place] [address] Internal Medicine 07/28/23 documented as of this encounter
--- OUTSIDE RECORDS SUMMARY | 2025-08-15 17:04 | XMS_ITS ---
Author Organization [facility] Address [address] [place] [address] Care Team Providers Care Iron Worker Apprentice Name Role Phone Suhail Marie MD Unavailable [phone] Robin Pimentel MD Unavailable [phone] Ceci Garcia NP Primary Care Provide r [...] CARBOplatin / Bevacizumab 21 Day Cycles - GEOSCIENCE SPECIALIST (Cycle 1 Gemcitibine D1, 8/Carbo D1, 8/Dorina [...] TABlets PO BID 28 Day Cycles - GEOSCIENCE SPECIALIST 4 02/08/2025 No medications scheduled. Progression Belem Menchaca MD Treatment not started DOXOrubicin Liposomal (DOXIL) / CARBOplatin 28 Day Cycles - GEOSCIENCE SPECIALIST (Carbo Locked) 3 09/23/2023 CARBOplatin (PARAPLATIN) IVPB in 250 mL (by AUC: GOG)LIPOSOMAL DOXOrubicin (DOXIL) IVPB in 250 mL Therapy Complete Belem Menchaca MD 6 of 6 cycles started PACLItaxel weekly / CARBOplatin weekly 21 Day Cycles - GEOSCIENCE SPECIALIST 06/27/20 20 11/14/2021 CARBOplatin (by AUC:GOG) (PARAPLATIN)CA [...] Fraction Dose Fractions Total Dose Plans Planned [id number] 06/06/2025 - 06/06/2025 700 1 700 VA108/[id number] 06/05/2025 - 06/05/2025 700 1 1,400 VA108/[id number] 06/04/2025 - 06/04/2025 700 1 2,100 VA108/[id number] 06/01/2025 - 06/01/2025 700 1 2,800 VA108/[id number] 05/31/2025 - 05/31/2025 700 3,500 Reference Points [...] - Keep follow-up appointments with IR and GEOSCIENCE SPECIALIST as directed. - Discussed with patient the [...] (04/18/2020): Added automatically from request for surgery [id number] Heart burn 07/03/2019 04/18/2020 Overview (07/03/2019): Added automatically from request for surgery [id number] Malignant neoplasm of overla pping sites of right female breast 05/16/2019 04/18/2020 Former smoker 07/18/2012 04/18/2020 Overview (12/24/2017): Description: 03/19/14 Gastroesophageal reflux disease 07/18/2012 07/26/2025 Hyperlipidemia 07/18/2020
[2025-08-15 17:11] LABS: Immature Granulocyte Percent A 0.4 % (0-0.5); Lymphocytes Absolute Auto 0.87 K/mm3 (0.9-3.2); Mean Corpuscular HGB Conc 32.7 g/dl (32-36); Mean Corpuscular Hemoglobin 34.7 pg (26-34); Mean Corpuscular Volume 106.2 fl (80-100); Nucleated Red Blood Cells Absolute Auto 0.000 K/mm3 (0.0-0.012); Nucleated Red Blood Cells Perc 0.0 % (0.0-0.2); Platelet Count Result 255 k/mm3 (150-375); Red Blood Count 1.93 M/mm3 (4.2-5.4); White Blood Count 7.8 K/mm3 (4.5-10.0)
[2025-08-15 17:21] LABS: Alanine Aminotransferase 19 U/L (6-35); Albumin Level 3.3 g/dL (3.5-5.1); Alkaline Phosphatase 90 U/L (38-126); Anion Gap 5 mmol/L (4-12); Aspartate Amino Transferase 28 U/L (14-36); Bilirubin,Total 0.4 mg/dL (0.2-1.3); Blood Urea Nitrogen 14 mg/dL (7-17); Calcium 8.9 mg/dL (8.4-10.2); Carbon Dioxide 23 mmol/L (22-30); Chloride 105 mmol/L (98-107); Estimated CRCL calculation 29 ml/min; Estimated Glomerular Filt Rate 40; Glucose 172 mg/dL (65-110); Lipase 54 U/L (23-300); Potassium 3.6 mmol/L (3.4-5.0); Sodium 133 mmol/L (137-145); Total Protein 6.2 g/dL (6.3-8.2)
[2025-08-15 17:24] LABS: Hematocrit 20.5 % (37.0-47.0); Hemoglobin 6.7 g/dL (12.0-15.0)
[2025-08-15 17:31] LABS: Ovalocytes Occasional; Schistocytes None Seen
[2025-08-15 17:32] LABS: Hypochromasia Occasional
[2025-08-15 17:40] LABS: Magnesium 1.0 mg/dL (1.6-2.3)
--- NOTE | 2025-08-15 17:43 | ED.NAVMDI ---
HPI - Nausea/Vomiting/Diarrhea General Chief complaint: Nausea/Vomiting/Diarrhea Stated complaint: farting like you wouldn't believe Time Seen by Provider: 08/15/25 15:42 Source: patient and family (Daughter Marry and Ambrose) Mode of arrival: ambulatory Limitations: no limitations History of Present Illness HPI Narrative: Patient presents with report of nausea since last night. She reports having excessive gas, both eructation/belching as well as flatulence. No vomiting although she was dry heaving. She will it intermittently experience left-sided abdominal pain though not now. She was diagnosed with a cancerous tumor in her stomach earlier this summer and underwent subcu off therapy however she experienced side effects so was transitioned to radiation. She receives oncologic care through [facility]. Her last EGD was performed years ago. Her last colonoscopy was performed approximately 5 years ago around the time that she was diagnosed with ovarian cancer. 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 She does not have a healthcare consultant. She reports that she was supposed to be referred to 1 locally within our system 3 weeks ago but she has not heard back. No bloody stools and no bloody emesis. No sick contacts. She had been having some shortness breath. History of anemia for which she has previously required a blood transfusion. She is on Zofran at home which she had been taking 8 mg b.i.d. but now p.r.n.. She also takes Protonix 40 mg. She has chronic diarrhea. No fevers or chills though she had been experiencing hot flashes. She has a urologist through [facility] and had a ureteral stent placed. Related Data Home Medications ?Medication ?Instructions ?Recorded ?Confirmed ?Last Taken ?Type potassium chloride 20 mEq 20 meq PO BID 09/11/23 04/10/25 Unknown History tablet,extended release(part/cryst) (Klor-Con M) gabapentin 600 mg tablet 600 mg PO BID 07/16/24 04/10/25 Unknown History meloxicam 7.5 mg tablet 7.5 mg PO DAILY 07/16/24 04/10/25 Unknown History ondansetron HCl 8 mg tablet 8 mg PO Q8H PRN nausea and vomiting 07/16/24 04/10/25 Unknown History esomeprazole magnesium 40 mg 40 mg PO Q24H 02/11/25 04/10/25 Unknown History capsule,delayed release loratadine 10 mg tablet 10 mg PO Q24H PRN allergy symptoms 02/11/25 04/10/25 Unknown History pyridoxine (vitamin B6) 100 mg 250 mg PO .COMPLEX 02/11/25 04/10/25 Unknown History tablet cyanocobalamin (vitamin B-12) 6,000 mcg PO DAILY 04/10/25 04/10/25 Unknown History 1,000 mcg tablet famotidine 20 mg tablet 20 mg PO BID 04/10/25 04/10/25 Unknown History ferrous sulfate 325 mg (65 mg 325 mg PO DAILY 04/10/25 04/10/25 Unknown History iron) tablet (Feosol) fluoxetine 60 mg tablet 60 mg PO DAILY 04/10/25 04/10/25 Unknown History fluticasone propionate 50 1 spray intranasal PRN PRN rhinitis 04/10/25 04/10/25 Unknown History mcg/actuation nasal spray,suspension lidocaine-prilocaine 2.5 %-2.5 % 1 applic topical PRN PRN pain 04/10/25 04/10/25 Unknown History topical cream lorazepam 0.5 mg tablet (Ativan) 0.5 mg PO Q6H PRN nausea and 04/10/25 04/10/25 Unknown History vomiting oxycodone 5 mg tablet 5 mg PO Q4H PRN pain 04/10/25 04/10/25 Unknown History polyethylene glycol 3350 17 gram 17 g PO DAILY PRN constipation 04/10/25 04/10/25 Unknown History oral powder packet risedronate 35 mg tablet (Actonel) 35 mg PO ONCE 04/10/25 04/10/25 Unknown History triamcinolone acetonide 0.1 % 1 applic topical BID 04/10/25 04/10/25 Unknown History topical cream Allergies Allergy/AdvReac Type Severity Reaction Status Date / Time coconut Allergy Severe Anaphylaxis Verified 02/11/25 16:14 adhesive tape Allergy Unknown Other Verified 02/11/25 16:14 celecoxib (From Celebrex) AdvReac Rash Verified 02/11/25 16:14 [facility] Past Medical History Medical History 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 CT scan of the abdomen/pelvis shows a rectal and cecal anastomosis. History of cholecystectomy History of right mastectomy History of total abdominal hysterectomy and bilateral salpingo-oophorectomy History of left knee replacement (2022) Family History Family History Mother Family history of malignant neoplasm of breast in first degree relative Father Family history of lung disease Daughter Breast cancer History of hysterectomy Social History Social History (Updated 04/10/25 @ 17:42 by Honey Nguyen RN) Social History: She lives with her of 32 years. 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 She has 2 daughters and a son. Her youngest daughter was just diagnosed with breast cancer. She used to smoke up to a pack of cigarettes per day but then would not smoke for up to a week after that. She did this for proximally 30 years but quit smoking in the . She denies any history of heavy alcohol use or illicit substance use. She ambulates with a Rollator. Code status: Full code Surrogate decision maker: Smoking packs per day: 0.5 Smoking cigarettes per day: 10.0 Years smoked: 5 Smoking pack-years: 2.50 Smoking status: Former smoker Alcohol intake: never Substance use: never Substance use type: does not use Lack of Transportation: No Lack of Food: Never True Current Housing: I Have Housing Concerned About Future Housing: No Difficulty Paying Gas/Electric Bills: No Difficulty Paying for Meds: No Currently Unemployed: No Education: High School Diploma/GED Difficulty w/ Childcare or Family Care: No Gender identity (if verbalized by the patient): Male Sexual Orientation (if Verbalized by the Patient): Straight or Heterosexual Spiritual care concerns: No Agree to blood products: Yes Exam Narrative: GENERAL: Chronically ill appearing although well-nourished, and in no acute distress. HEAD: Normocephalic, atraumatic. EYES: Non injected, non icteric ENT: Nares clear, no rhinorrhea or epistaxis. Gross auditory acuity intact. NECK: Supple. No meningismus. CHEST: Speaking in full sentences. No respiratory distress. HEART: Tachycardic rate and rhythm. . ABDOMEN: Soft, nondistended; with slight firmness in bilateral lower quadrants but no rigidity or guarding. Not peritoneal EXTREMITIES: Normal range of motion. No lower extremity edema. SKIN: Warm, dry, no rash. NEURO: No focal deficits. Alert and oriented. Answering questions. Following commands. Normal speech without aphasia or dysarthria. PSYCH: Normal mood and affect. Course Vital Signs Vital signs: Vital Signs Temperature 98.0 F 08/15/25 15:30 Pulse Rate 105 H 08/15/25 15:30 Respiratory Rate 18 08/15/25 15:30 Blood Pressure 104/75 08/15/25 15:30 Pulse Oximetry 100 08/15/25 15:30 Oxygen Delivery Room Air 08/15/25 15:30 Temperature 98 F 08/15/25 21:50 Pulse Rate 87 08/15/25 21:50 Respiratory Rate 16 08/15/25 21:50 Blood Pressure 99/44 L 08/15/25 21:50 Pulse Oximetry 100 08/15/25 21:50 Oxygen Delivery Room Air 08/15/25 15:30 MDM MDM Narrative Medical decision making narrative: Patient presents report of nausea since last night. She will intermittently experience left-sided abdominal pain although not currently. History a diagnosis benign tumor in her stomach this summer and had undergone some chemotherapy all but had side effects so was transitioned to radiation. In the emergency department she is afebrile with vital signs notable for mild tachycardia. Lab results with Hgb 6.7 and Hct 20.5. Blood product transfusion I have discussed the proposed blood product transfusion with the patient and family (daughter and ). I have informed the patient regarding the benefits and potential risks of blood product transfusion which, though rare, include transfusion reaction, hepatitis, and HIV. The patient has been given the opportunity to ask questions about the need to be transfused and possible outcomes of not receiving this treatment. Patient has verbally agreed to undergo transfusion. I obtained signed consent and place it in the patient's chart. Order was placed for transfusion of 1 unit of packed red blood cells. No leukocytosis. Or thrombocytopenia. Chronic hyponatremia , stable from previous as is her Cr, consistent with CKD. Hyperglycemia without anion gap acidosis. She does have hypoalbuminemia. My differential diagnosis for chronic diarrhea includes, but not limited to: Infectious (giardia, E histolytica, C difficile), medications (antibiotics, antacids, lactulose, sorbitol, chemotherapy, colchicine, gold), inflammatory etiology (such as IBD, radiation enteritis, ischemic colitis, diverticulitis). Also possible are malabsorption issues due to bile salt deficiency (cirrhosis, cholestasis, ileal disease, bacterial overgrowth), pancreatic insufficiency, mucosal abnormalities (celiac sprue, tropical sprue, Whipple disease), or lactose intolerance. They are also secretory causes such as hormonal (VIP, carcinoid tumor, medullary cancer of thyroid, a linear Mace, glucagon, thyroxine), laxative abuse, neoplasm; finally motility issues may be the cause (IBS, scleroderma, hyperthyroidism, diabetic autonomic neuropathy). == Given patient's cancer, recommend continuing conversations of goals of care to establish values and wishes as discuss further treatments and interventions. Of note, Medicare guidelines for hospice eligibility a for patients with cancer are as follows: Patient will considered to be in the terminal stage ( life expectancy of 6 months or less) if they meet ALL of the following criteria: 1. clinical findings of malignancy with widespread, aggressive or progressive disease as evidenced by increasing symptoms, worsening lab values and or evidence of metastatic disease. 2. Palliative performance scale (PPS) </=70% 3. refuses further life-prolonging therapy OR continues to decline in spite of definite therapy. Supporting documentation includes: Hypercalcemia >12 Cachexia or weight loss of 5% past 3 months Signs and symptoms of advanced disease ( nausea, requirement for transfusions, malignant ascites or pleural effusion, etc.) Given this, a palliative care consult might be appropriate at a later point. == Hypo magnesemia at 1.0. Given this, will order 4 g IV. Also had ordered a GI cocktail which contains mangesium. Patient reassessed at approximately 10:05pm. She reports feeling better (although didn't like the taste of the GI cocktail). Blood is transfusing. It is at this point that I realized the pre-transfusion labs (ferritin, TIBC, etc) had accidentally not been ordered and this is done now; they should be able to be added on to what was already drawn. UA is concerning for UTI ; cystitis had also been considered on the CT. First dose Bactrim given in the ED with the rest of the course prescribed. Differential Diagnosis Differential Diagnosis: Differential diagnostic considerations for nausea/vomiting/diarrhea include gastroenteritis, appendicitis, IBD, intestinal obstruction, clostridium difficile, food poisoning, IBS, dehydration, drug induced nausea/vomiting; sequelae of malignancy; diverticulitis. Lab Data MDM Lab Attestation statement: I personally reviewed the patient's lab results. 08/15/25 17:05 08/15/25 17:05 Labs: Lab Results 08/15/25 08/15/25 08/15/25 Range/Units 17:05 18:37 22:18 WBC 7.8 (4.5-10.0) K/mm3 RBC 1.93 L (4.2-5.4) M/mm3 Hgb 6.7 L* (12.0-15.0) g/dL Hct 20.5 L* (37.0-47.0) % MCV 106.2 H (80-100) fl MCH 34.7 H (26-34) pg MCHC 32.7 (32-36) g/dl RDW 13.3 (11.5-14.5) % Plt Count 255 D (150-375) k/mm3 MPV 10.3 (7.4-10.4) fl Immature Gran % (Auto) 0.4 (0-0.5) % Neut % (Auto) 77.6 H (45.5-73.1) % Lymph % (Auto) 11.1 L (18.3-44.2) % [place] % (Auto) 9.2 H (2.6-8.5) % Eos % (Auto) 1.3 (0-4.4) % Baso % (Auto) 0.4 (0.2-1.2) % Lymph # (Auto) 0.87 L (0.9-3.2) K/mm3 [place] # (Auto) 0.7 H (0.1-0.6) K/mm3 Eos # (Auto) 0.1 (0-0.3) K/mm3 Baso # (Auto) 0.0 (0.0-0.1) K/mm3 Abs Immat Gran (auto) 0.03 (0.00-0.031) K/mm3 Absolute Neuts (auto) 6.1 (1.3-6.7) K/mm3 Absolute Nucleated RBC 0.000 (0.0-0.012) K/mm3 Band Neutrophils % Not Reportable Nucleated RBC % 0.0 (0.0-0.2) % Platelet Estimate Adequate (Adequate) Hypochromasia Occasional Ovalocytes Occasional Schistocytes None seen Sodium 133 L (137-145) mmol/L Potassium 3.6 (3.4-5.0) mmol/L Chloride 105 (98-107) mmol/L Carbon Dioxide 23 (22-30) mmol/L Anion Gap 5 (4-12) mmol/L BUN 14 (7-17) mg/dL Creatinine 1.31 H (0.7-1.0) mg/dL Estim Creat Clear Calc 29 ml/min Estimated GFR 40 L (59 - ) Glucose 172 H (65-110) mg/dL Calcium 8.9 (8.4-10.2) mg/dL Magnesium 1.0 L (1.6-2.3) mg/dL Iron 56 (37-170) ug/dL TIBC 134 L (261-462) ug/dL % Saturation 42 (20-50) % Ferritin Pending Total Bilirubin 0.4 (0.2-1.3) mg/dL AST 28 (14-36) U/L ALT 19 (6-35) U/L Alkaline Phosphatase 90 (38-126) U/L Total Protein 6.2 L (6.3-8.2) g/dL Albumin 3.3 L (3.5-5.1) g/dL Lipase 54 (23-300) U/L Urine Color Yellow (Yellow) Urine Appearance Clear (Clear) Urine pH 5.5 (5.0-9.0) Ur Specific [place] 1.033 (1.001-1.035) Urine Protein 1+ H (Negative) mg/dL Urine Glucose (UA) Negative (Negative) mg/dL Urine Ketones Negative (Negative) mg/dL Ur Blood (Man) 2+ H (Negative) Urine Nitrate Negative (Negative) Urine Bilirubin Negative (Negative) Urine Urobilinogen 0.2 (<2.0) mg/dL Leukocyte Esterase Rfl 3+ H (Negative) TIMOTHY/UL Urine RBC 3-5 H (0-2) /hpf Urine WBC >100 H (0-3) /hpf Ur Squamous Epith Cells None seen (Few) /hpf Urine Bacteria 1+ H /hpf Urine Casts 0-2 Blood Type O Negative Antibody Screen Negative Crossmatch See Detail Imaging Data Radiologist's impression: ITS Impressions Abdomen/Pelvis CT 08/15/25 18:12 IMPRESSION: 1. Mild thickening of the gastric wall, suspicious for gastritis. 2: Mild right hydronephrosis with urothelial thickening in the pelvis. Right internal ureteral stent in expected position. Cannot exclude urinary tract infection. Impressions Abdomen/Pelvis CT 08/15/25 18:12 IMPRESSION: 1. Mild thickening of the gastric wall, suspicious for gastritis. 2: Mild right hydronephrosis with urothelial thickening in the pelvis. Right internal ureteral stent in expected position. Cannot exclude urinary tract infection. Discharge Plan Discharge Clinical Impression: Blood transfusion during current hospitalization, Flatulence/gas pain/belching, Anemia, macrocytic, Chronic hyponatremia, CKD (chronic kidney disease), Nondiabetic hyperglycemia, Hypoalbuminemia, Hypomagnesemia, Gastritis, Hydronephrosis, right, Chronic diarrhea, Nausea, UTI (urinary tract infection) Patient Disposition: Home Condition: Stable Instructions: Antibiotic Form, Gastritis (DC), Chronic Kidney Disease (ED), Hyponatremia (ED), Acute Nausea and Vomiting (DC), Chronic Diarrhea (DC), Gas and Bloating (ED), Abdominal Pain (ED), Hypomagnesemia (ED), Hydronephrosis (ED), Anemia (ED), Blood Transfusion (DC) Additional Instructions: Continue taking all medications as prescribed and following up with your care team including your PCP and 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 They will likely want a repeat outpatient lab to assess your hemoglobin/hematocrit. The name of a healthcare consultant is listed below given you were requesting a referral. You can continue to use your Ondansetron/Zofran for nausea/vomiting and your Protonix for the gastritis. For the intermittent abdominal pain/cramping, you may find that Bentyl helps; it works on the smooth muscle of the GI tract. The simethicone may help with gas. Your magnesium is low due to the chronic diarrhea. Ironically some formulations of magnesium supplementation can cause diarrhea, can consider food sources to replete. Examples include salmon, tofu, souleymane seeds, bananas, black beans, spinach, cashews/cashew butter, oats, peanuts, potatoes with skins on, brown rice, soy milk, quinoa, kidney beans, whole wheat bread, avocado, raisins, pumpkin seeds, beet greens, dried prunes, white beans, almonds, chickpeas, etc. You have evidence of a UTI. First dose antibiotic was given and the rest of the course has been prescribed. Return to the ED if new/worsening symptoms. Patient Language: Greenlandic Prescriptions: New dicyclomine 10 mg capsule 10 mg PO BID PRN (Reason: abdominal pain) Qty: 20 0RF simethicone 125 mg capsule 125 mg PO DAILY PRN (Reason: gas) Qty: 20 0RF sulfamethoxazole-trimethoprim [Bactrim DS] 800-160 mg tablet 1 tablet PO Q12H 5 Days Qty: 10 0RF No Action potassium chloride [Klor-Con M20] 20 mEq tablet,ER particles/crystals 20 meq PO BID gabapentin 600 mg tablet 600 mg PO BID ondansetron HCl 8 mg tablet 8 mg PO Q8H PRN (Reason: nausea and vomiting) meloxicam 7.5 mg tablet 7.5 mg PO DAILY esomeprazole magnesium 40 mg capsule,delayed release(DR/EC) 40 mg PO Q24H pyridoxine (vitamin B6) 100 mg tablet 250 mg PO .COMPLEX Rx Instructions: 250 mg orally; loratadine 10 mg tablet 10 mg PO Q24H PRN (Reason: allergy symptoms) famotidine 20 mg tablet 20 mg PO BID ferrous sulfate [Feosol] 325 mg (65 mg iron) tablet 325 mg PO DAILY fluoxetine 60 mg tablet 60 mg PO DAILY fluticasone propionate 50 mcg/actuation spray,suspension 1 spray INTRANASAL PRN PRN (Reason: rhinitis) lidocaine-prilocaine 2.5-2.5 % cream 1 applic topical PRN PRN (Reason: pain) Rx Instructions: Apply 1 hour prior to IV access and cover. lorazepam [Ativan] 0.5 mg tablet 0.5 mg PO Q6H PRN (Reason: nausea and vomiting) oxycodone 5 mg tablet 5 mg PO Q4H PRN (Reason: pain) polyethylene glycol 3350 17 gram powder in packet 17 g PO DAILY PRN (Reason: constipation) triamcinolone acetonide 0.1 % cream 1 applic topical BID cyanocobalamin (vitamin B-12) 1,000 mcg tablet 6,000 mcg PO DAILY risedronate [Actonel] 35 mg tablet 35 mg PO ONCE Rx Instructions: administer at least 30 minutes before the first food or drink of the day other than water. Follow-up/Referrals: Radha,Ceci Goddard APRN [Primary Care Provider, Family Practice] Galo Love MD [Physician, Gastroenterology] Time of Disposition: 22:53
[2025-08-15] MEDS: SODIUM CHLORIDE 0.9% IV 1,000 ML 999 ML IV CONT (19:41)
[2025-08-15] MEDS: FAMOTIDINE 20 MG/2 ML VIAL IV PUSH (19:43)
[2025-08-15] MEDS: ONDANSETRON INJ 4 MG/2 ML VIAL IV PUSH (19:43)
[2025-08-15] MEDS: BELLADONNA ALK/PHENOB ELIX 10 ML, MAG HYDROX/ALUMINUM HYD/SIMETH 30 ML, LIDOCAINE 2% VI... PO (19:47)
[2025-08-15] MEDS: MAGNESIUM SULF 4 GM/WATER100ML 4 GM/100 ML BAG IVPB (20:19)
[2025-08-15] MEDS: SODIUM CHLORIDE 0.9% IV 250 ML 30 ML IV CONT (21:26)
[2025-08-15] MEDS: TUBING, BLOOD PLUM PUMP TUBING 1 EACH XX (21:30)
[2025-08-15 22:27] LABS: Add Urine Microscopic? YES; Appearance Urine Clear (Clear); Glucose Urine UA Negative (Negative); Leukocyte Esterase Ur 3+ LEU/UL (Negative); Nitrate Urine Negative (Negative); Non Pathogenic Casts 0-2; Specific Grav Ur 1.033 (1.001-1.035)
[2025-08-15 22:35] LABS: Iron 56 ug/dL (37-170)
[2025-08-15 22:44] LABS: Percent Iron Saturation 42 % (20-50)
[2025-08-16] MEDS: SULFAMETHOXAZOLE/TRIMETHOPRIM 800/160 MG DS TABLET 1 TAB PO (00:21)
[2025-08-16] MEDS: DICYCLOMINE HCL 10 MG CAPSULE PO (00:22)
[2025-08-16] MEDS: HEPARIN SODIUM LOCK FLUSH 500 UNITS/5 ML SYRINGE (00:42)
== END 2025-08-16 00:44 | disposition home or self-care (01) ==
PROVIDERS: Emergency Provider Student in an Organized Health Care Education/Training Program; PCP Nurse Practitioner Family
DX: K29.70 Gastritis, unspecified, without bleeding (principal); N39.0 Urinary tract infection, site not specified; D53.9 Nutritional anemia, unspecified; R73.9 Hyperglycemia, unspecified; E87.1 Hypo-osmolality and hyponatremia; E88.09 Other disorders of plasma-protein metabolism, not elsewhere classified; E83.42 Hypomagnesemia; N13.30 Unspecified hydronephrosis; K52.9 Noninfective gastroenteritis and colitis, unspecified; R14.0 Abdominal distension (gaseous); R14.3 Flatulence; R14.2 Eructation; N18.30 Chronic kidney disease, stage 3 unspecified; C16.9 Malignant neoplasm of stomach, unspecified; K21.9 Gastro-esophageal reflux disease without esophagitis; M81.0 Age-related osteoporosis without current pathological fracture; F41.9 Anxiety disorder, unspecified; F32.A Depression, unspecified; Z96.0 Presence of urogenital implants; Z96.652 Presence of left artificial knee joint; Z85.43 Personal history of malignant neoplasm of ovary; Z85.3 Personal history of malignant neoplasm of breast; Z87.891 Personal history of nicotine dependence; Z90.49 Acquired absence of other specified parts of digestive tract; Z90.11 Acquired absence of right breast and nipple; Z90.722 Acquired absence of ovaries, bilateral; Z90.79 Acquired absence of other genital organ(s); Z90.710 Acquired absence of both cervix and uterus
CPT/HCPCS: 36415; 36430; 74177; 80053; 81001; 82728; 83540; 83550; 83690; 83735; 85025; 86850; 86900; 86901; 86923; 87086; 96361; 96365; 96366; 96375; 99284; 99285; A9270; J2405; J3475; J7030; J7050; P9016; Q9967

== ENCOUNTER 2025-09-08 13:16 | Emergency (ER) | payer MEDICARE, OTHER, SELFPAY ==
[2025-09-08 13:48] VITALS: BP 108/70; PULSE 162; RESP 16; TEMP 36.7; O2SAT 99
--- NOTE | 2025-09-08 14:17 | ED.GENADULT ---
HPI - General Adult General Chief complaint: Upper Respiratory Infection Stated complaint: shaking Time Seen by Provider: 09/08/25 13:18 Source: patient Mode of arrival: ambulatory Limitations: no limitations History of Present Illness HPI narrative: Karis is a 70-year-old female patient presenting to the clinic today with complaints of runny nose, cough, congestion, increase in tremors, body aches, and chills x3 days. Denies any fever. States she is having some uncontrollable shaking. Does have shortness of breath and dizziness at times. She does appear to be very pale. Recently was seen in the ED earlier in this month and had a blood transfusion for a hemoglobin of 6.7. History of ovarian cancer, breast cancer, stomach cancer-has had radiation and chemo. Recent PET scan done in August and has appointment to see her doctor oncologist at [facility] in September. Related Data Home Medications ?Medication ?Instructions ?Recorded ?Confirmed ?Last Taken ?Type potassium chloride 20 mEq 20 meq PO BID 09/11/23 04/10/25 Unknown History tablet,extended release(part/cryst) (Klor-Con M) gabapentin 600 mg tablet 600 mg PO BID 07/16/24 04/10/25 Unknown History meloxicam 7.5 mg tablet 7.5 mg PO DAILY 07/16/24 04/10/25 Unknown History ondansetron HCl 8 mg tablet 8 mg PO Q8H PRN nausea and vomiting 07/16/24 04/10/25 Unknown History esomeprazole magnesium 40 mg 40 mg PO Q24H 02/11/25 04/10/25 Unknown History capsule,delayed release loratadine 10 mg tablet 10 mg PO Q24H PRN allergy symptoms 02/11/25 04/10/25 Unknown History pyridoxine (vitamin B6) 100 mg 250 mg PO .COMPLEX 02/11/25 04/10/25 Unknown History tablet cyanocobalamin (vitamin B-12) 6,000 mcg PO DAILY 04/10/25 04/10/25 Unknown History 1,000 mcg tablet famotidine 20 mg tablet 20 mg PO BID 04/10/25 04/10/25 Unknown History ferrous sulfate 325 mg (65 mg 325 mg PO DAILY 04/10/25 04/10/25 Unknown History iron) tablet (Feosol) fluoxetine 60 mg tablet 60 mg PO DAILY 04/10/25 04/10/25 Unknown History fluticasone propionate 50 1 spray intranasal PRN PRN rhinitis 04/10/25 04/10/25 Unknown History mcg/actuation nasal spray,suspension lidocaine-prilocaine 2.5 %-2.5 % 1 applic topical PRN PRN pain 04/10/25 04/10/25 Unknown History topical cream lorazepam 0.5 mg tablet (Ativan) 0.5 mg PO Q6H PRN nausea and 04/10/25 04/10/25 Unknown History vomiting oxycodone 5 mg tablet 5 mg PO Q4H PRN pain 04/10/25 04/10/25 Unknown History polyethylene glycol 3350 17 gram 17 g PO DAILY PRN constipation 04/10/25 04/10/25 Unknown History oral powder packet risedronate 35 mg tablet (Actonel) 35 mg PO ONCE 04/10/25 04/10/25 Unknown History triamcinolone acetonide 0.1 % 1 applic topical BID 04/10/25 04/10/25 Unknown History topical cream Allergies Allergy/AdvReac Type Severity Reaction Status Date / Time coconut Allergy Severe Anaphylaxis Verified 09/08/25 15:20 adhesive tape Allergy Unknown Other Verified 09/08/25 15:20 celecoxib (From Celebrex) AdvReac Rash Verified 09/08/25 15:20 Review of Systems Review of Systems: Pertinent positives per HPI. Patient denies any fever, chills, rash, headache, visual changes, dizziness, cough, shortness of breath, chest pain, palpitations, nausea, vomiting, diarrhea, constipation, abdominal pain, or any urinary issues. 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 CT scan of the abdomen/pelvis shows a rectal and cecal anastomosis. History of cholecystectomy History of right mastectomy History of total abdominal hysterectomy and bilateral salpingo-oophorectomy History of left knee replacement (2022) Family History Family History Mother Family history of malignant neoplasm of breast in first degree relative Father Family history of lung disease Daughter Breast cancer History of hysterectomy Social History Social History Social History: She lives with her of 32 years. 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 She has 2 daughters and a son. Her youngest daughter was just diagnosed with breast cancer. She used to smoke up to a pack of cigarettes per day but then would not smoke for up to a week after that. She did this for proximally 30 years but quit smoking in the . She denies any history of heavy alcohol use or illicit substance use. She ambulates with a Rollator. Code status: Full code Surrogate decision maker: Smoking packs per day: 0.5 Smoking cigarettes per day: 10.0 Years smoked: 5 Smoking pack-years: 2.50 Smoking status: Former smoker Alcohol intake: never Substance use: never Substance use type: does not use Lack of Transportation: No Lack of Food: Never True Current Housing: I Have Housing Concerned About Future Housing: No Difficulty Paying Gas/Electric Bills: No Difficulty Paying for Meds: No Currently Unemployed: No Education: High School Diploma/GED Difficulty w/ Childcare or Family Care: No Gender identity (if verbalized by the patient): Male Sexual Orientation (if Verbalized by the Patient): Straight or Heterosexual Spiritual care concerns: No Agree to blood products: Yes Comments At the time of my signature, I reviewed and agree with the nursing past medical, surgical, social, and family history. There is no relevant family history pertinent to the patient complaint. Exam Narrative: General: Well-developed, pale, thin, chronically ill-appearing Head: Normocephalic, atraumatic Eyes: Pupils equally round and reactive to light bilaterally, EOM intact, sclera and conjunctive clear, no discharge, lids normal Ears: TMs intact and clear, ear canals clear, no drainage, grossly hearing normal. Nose: Nares patent, clear discharge, mild inflammation, no sinus tenderness. Mouth: Oral pharynx without lesions or masses, good dentition, MMM. Neck: Supple, trachea midline, no enlargement of anterior or posterior cervical nodes, no thyroid masses or goiter palpable. Cardio: Tachycardic- Regular rate and rhythm, s1 and s2 normal, no murmur appreciated. Resp: Clear to auscultation bilaterally, no rhonchi, rales, wheezing or rubs Course Course Level of Care: Express Care Visit Vital Signs Vital signs: Vital Signs Temperature 36.7 C 09/08/25 13:48 Pulse Rate 162 H 09/08/25 13:48 Respiratory Rate 16 09/08/25 13:48 Blood Pressure 108/70 09/08/25 13:48 Pulse Oximetry 99 09/08/25 13:48 Oxygen Delivery Room Air 09/08/25 13:48 Temperature 36.7 C 09/08/25 13:48 Pulse Rate 162 H 09/08/25 13:48 Respiratory Rate 16 09/08/25 13:48 Blood Pressure 108/70 09/08/25 13:48 Pulse Oximetry 99 09/08/25 13:48 Oxygen Delivery Room Air 09/08/25 13:48 Transfer Transfered to: [facility] Transportation: Other (Private car) Transfer rationale: SVT on EKG, flu-like symptoms, intermittent dizziness and shortness of breath-higher level of care Accepting physician: Dr. Perez Transfer comments: Private car MDM MDM Narrative Medical decision making narrative: At the time of visit patient is resting comfortably on the exam table. Patient appears to be nontoxic. Complaints of runny nose, cough, congestion, increase in tremors, body aches, and chills x3 days. Denies any fever. States she is having some uncontrollable shaking. Does have shortness of breath and dizziness at times. She does appear to be very pale. Recently was seen in the ED earlier in this month and had a blood transfusion for a hemoglobin of 6.7. History of ovarian cancer, breast cancer, stomach cancer-has had radiation and chemo. Recent PET scan done in August and has appointment to see her doctor oncologist at [facility] in September. On exam patient appears chronically ill, pale, clear nasal drainage, mild anterior turbinate inflammation, bilateral TMs clear intact, oropharynx normal, lung sounds are clear, heart rates tachycardic-regular EKG: EKG shows SVT with heart rate 159-apical heart rates 120s to 130s. Old comparison EKG shows sinus rhythm heart rate 70 and sinus tachycardia heart rate 116 in the past. Labs: COVID, influenza, and bedside glucose performed. COVID and influenza testing were negative. Bedside glucose was 99. Orthostatics: Lying blood pressure was 152/64 with heart rate of 130, sitting blood pressure was 115/71 with heart rate of 130, standing blood pressure was 130/60 with heart rate of 150. Plan: Patient is complaining of intermittent dizziness, shortness of breath, and increased and essential tremors with flu-like symptoms. EKG shows SVT with a heart rate of 159-apical heart rates 120s to 130s. Recommend transfer to the ER for further evaluation-to rule out anemia-needing transfusion, electrolyte imbalance, NM, coronary artery disease, sustained SVT, or AFib with RVR. Patient agrees to transfer and would like to go to [facility] emergency room. Contacted Dr. Perez at [facility] and he accepts patient for transfer. Patient wants to go by private car. She denies any chest pain or shortness of breath at this time. Differential Diagnosis Differential Diagnosis: Differential diagnostic considerations for chest pain include ACS, aortic dissection, pneumothorax, pulmonary embolus, whit/pericarditis, angina, STEMI, esophageal abnormality, GI etiology, pneumonia, rib fracture, biliary colic, atypical/non-cardiac (MSK, etc). Electrolyte imbalance, hypovolemia Differential diagnostic considerations for upper respiratory infection include upper respiratory infection, croup, otitis media, sinusitis, viral infection, bronchitis, influenza, pharyngitis, strep, uvulitis. ECG Data EKG #1: Attestation: I personally reviewed and interpreted this ECG as follows: ECG completion date: 09/08/25 ECG completion time: 14:42 Interpretation: EKG shows SVT with heart rate of [address] deviation with moderate T-wave abnormality. No ST elevation noted. QRS durations 81 milliseconds, QT-QTC is 278-366 milliseconds, P-R-T axis is 68 and 138 Discharge Plan Discharge Clinical Impression: Supraventricular tachycardia, Dizziness, Shortness of breath Patient Disposition: Acute Care Hospital Condition: Stable Patient Language: Frisian Prescriptions: No Action potassium chloride [Klor-Con M20] 20 mEq tablet,ER particles/crystals 20 meq PO BID gabapentin 600 mg tablet 600 mg PO BID ondansetron HCl 8 mg tablet 8 mg PO Q8H PRN (Reason: nausea and vomiting) meloxicam 7.5 mg tablet 7.5 mg PO DAILY esomeprazole magnesium 40 mg capsule,delayed release(DR/EC) 40 mg PO Q24H pyridoxine (vitamin B6) 100 mg tablet 250 mg PO .COMPLEX Rx Instructions: 250 mg orally; loratadine 10 mg tablet 10 mg PO Q24H PRN (Reason: allergy symptoms) dicyclomine 10 mg capsule 10 mg PO BID PRN (Reason: abdominal pain) Qty: 20 0RF simethicone 125 mg capsule 125 mg PO DAILY PRN (Reason: gas) Qty: 20 0RF sulfamethoxazole-trimethoprim [Bactrim DS] 800-160 mg tablet 1 tablet PO Q12H 5 Days Qty: 10 0RF famotidine 20 mg tablet 20 mg PO BID ferrous sulfate [Feosol] 325 mg (65 mg iron) tablet 325 mg PO DAILY fluoxetine 60 mg tablet 60 mg PO DAILY fluticasone propionate 50 mcg/actuation spray,suspension 1 spray INTRANASAL PRN PRN (Reason: rhinitis) lidocaine-prilocaine 2.5-2.5 % cream 1 applic topical PRN PRN (Reason: pain) Rx Instructions: Apply 1 hour prior to IV access and cover. lorazepam [Ativan] 0.5 mg tablet 0.5 mg PO Q6H PRN (Reason: nausea and vomiting) oxycodone 5 mg tablet 5 mg PO Q4H PRN (Reason: pain) polyethylene glycol 3350 17 gram powder in packet 17 g PO DAILY PRN (Reason: constipation) triamcinolone acetonide 0.1 % cream 1 applic topical BID cyanocobalamin (vitamin B-12) 1,000 mcg tablet 6,000 mcg PO DAILY risedronate [Actonel] 35 mg tablet 35 mg PO ONCE Rx Instructions: administer at least 30 minutes before the first food or drink of the day other than water. Follow-up/Referrals: Radha,Ceci Goddard APRN [Primary Care Provider, Family Practice] Time of Disposition: 14:55 Quality NIHSS Nursing Documentation ED NIHSS nursing documentation: reviewed/agree
[2025-09-08 14:33] LABS: EDCOVIDSCREEN Negative (Negative); EDINFLUASCREEN Negative (Negative); EDINFLUBSCREEN Negative (Negative)
[2025-09-08 14:34] VITALS: BP 115/71; BP 130/68; BP 152/64; PULSE 130
--- NOTE | 2025-09-08 14:35 | ECG_ITS ---
Test Date: 2025-09-08 14:44:30 Measurements Intervals [place] Rate: 157 P: 226 RI: 107 QRS: 90 QRSD: 131 T: 0 QT: 250 QTc: 405 Interpretive Statements ATRIAL FLUTTER/TACHYCARDIA WITH RAPID VENTRICULAR RESPONSE INCOMPLETE RIGHT BUNDLE BRANCH BLOCK BORDERLINE ST-T WAVE ABNORMALITY- DIFFUSE LEADS BASELINE ARTIFACT- I, II, III, AVR, AVL ,AVF, V1-V6 ABNORMAL ECG Compared to ECG 07/06/2025 19:46:29 SINUS TACHYCARDIA NO LONGER PRESENT Electronically Signed On 09-08-2025 21:09:28 RADIO STATION OPERATOR by Mckay Felder D.O.
== END 2025-09-08 15:00 | disposition short-term general hospital (02) ==
LOC: EXPCOLL 13:18
PROVIDERS: Emergency Provider Nurse Practitioner Family; PCP Nurse Practitioner Family
DX: I47.10 Supraventricular tachycardia, unspecified (principal); R42 Dizziness and giddiness; R06.02 Shortness of breath; Z20.822 Contact with and (suspected) exposure to COVID-19; Z87.891 Personal history of nicotine dependence; N18.30 Chronic kidney disease, stage 3 unspecified; D63.1 Anemia in chronic kidney disease; K21.9 Gastro-esophageal reflux disease without esophagitis; G62.0 Drug-induced polyneuropathy; M81.0 Age-related osteoporosis without current pathological fracture; F41.9 Anxiety disorder, unspecified; F32.A Depression, unspecified; Z85.43 Personal history of malignant neoplasm of ovary; Z85.3 Personal history of malignant neoplasm of breast; Z85.028 Personal history of other malignant neoplasm of stomach; Z92.21 Personal history of antineoplastic chemotherapy; Z92.3 Personal history of irradiation; Z90.11 Acquired absence of right breast and nipple; Z90.49 Acquired absence of other specified parts of digestive tract; Z90.722 Acquired absence of ovaries, bilateral
CPT/HCPCS: 82948; 87426; 87804; 93005; 99212; 99213; G0463

== ENCOUNTER 2025-09-08 15:13 | Inpatient (IN) | payer MEDICARE, OTHER, SELFPAY ==
--- OUTSIDE RECORDS SUMMARY | 2015-03-31 23:00 | XMS_ITS | Encounter Summary ---
Author Organization [facility] Healthcare Address [address] [place] [address] Care Team Providers Care Senior Information Developer Name Role Phone Unavailable Primary Care Provider Unavailabl e Reason for Visit * Diagnostic Imaging (Routine) - Closed Specialty Diagnoses / Procedures Referred By Chasity t Referred To Contact Procedures Breast Imaging Screening Outside Reference Patricia Powell NP Phone: tel: fax: Referral ID Status Reason Start Date Expiration Date Visits Re quested Visits Authorized [id number] Closed 02/02/2022 03/04/2023 1 1 Encounter Details Date Type Department Care Team (Late st Contact Info) Description 04/01/[address] [facility] [address] [place] [address] Social History Tobacco Use Types Packs/Day Years Used Date Smoking Tobacco: Former Cigarettes 0.5 19 1 3 - 1991 Passive Smoke Exposure: Past Smokeless Tobacco: Never Alcohol Use Standard Drinks/Week Comments Yes 0 (1 standard drink = 0.6 oz pur e alcohol) rarely [facility] Utilities Answer Date Recorded In the past 12 months has e electric, gas, oil, or water company threatened to shut off services in your home? Patient unable to answer 04/01/2025 Social Connection and Isolation Panel Answer Date Recorded In a typical week, how many times do you talk on the phone with family, friends, or neighbors? Patient unable to answer 04/01/2025 How often do you get togethe r with friends or relatives? Patient unable to answer 04/01/2025 How often do you attend chur ch or samaritan services? Patient unable to answer 04/01/2025 Do you belong to any clubs o r organizations such as buddhist groups, unions, fraternal or athletic groups, or school groups? Patient unable to answer 04/01/2025 How often do you attend meet ings of the clubs or organizations you belong to? Patient unable to answer 04/01/2025 Are you , , di vorced, , never , or living with a partner? Patient unable to answer 04/01/2025 Overall Financial Resource Strain (CARDIA) Answe r Date Recorded How hard is it for you to pa y for the very basics like food, housing, medical care, and heating? Patient unable to answer 04/01/2025 PHQ-2 Answer Date Recorded Patient Health Questionnaire-2 Score 0 02/20/2025 PRAPARE - Transportation Answer Date Re corded In the past 12 months, has l ack of transportation kept you from medical appointments or from getting medications? Patient unable to answer 04/01/2025 In the past 12 months, has l ack of transportation kept you from meetings, work, or from getting things needed for daily living? Patient unable to answer 04/01/2025 PHQ-9 Answer Date Recorded Patient Health Questionnaire-9 Score 0 02/20/2025 Housing Stability Vital Sign Answer Brice e Recorded In the last 12 months, was t here a time when you were not able to pay the mortgage or rent on time? Patient unable to answer 04/01/2025 In the past 12 months, how m any times have you moved where you were living? 0 04/01/2025 At any time in the past 12 m [facility], were you homeless or living in a jail (including now)? Patient unable to answer 04/01/2025 AUDIT-C Answer Date Recorded Q1: How often do you have a drink containing alc ohol? Monthly or less 06/26/2025 Q2: How many drinks containi ng alcohol do you have on a typical day when you are drinking? 1 or 2 06/26/2025 Q3: How often do you have si x or more drinks on one occasion? Never 06/26/2025 Hunger Vital Sign Answer Date Recorded Within the past 12 months, y ou worried that your food would run out before you got the money to buy more. Never true 05/03/20 25 Within the past 12 months, t he food you bought just didn't last and you didn't have money to get more. Never true 05/03/2025 Personal Safety Answer Date Recorded Have you ever been in or are you currently in a harmful physical or emotional relationship or is someone making you feel afraid or unsafe? Denies 07/04/2025 Education Answer Date Recorded What is the highest level of school you have completed or the highest degree you have received? 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 There will be no report generated by a [facility] Radiologist. 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 difficile suspected 02/19/2025 02/19/202502/21 2:35 PM CDT Ring Surveillance: C. auris Comment:[id number] 02/20/2025 02/20/2025 02/27/2025 7:26 PM C DT C. difficile suspected 03/31/2025 03/31/202503/31 7:21 PM CDT VRE 03/31/2025 03/31/2025 documented as of this encounter
--- OUTSIDE RECORDS SUMMARY | 2015-04-08 23:00 | XMS_ITS | Encounter Summary ---
Author Organization [facility] Healthcare Address [address] [place] [address] Care Team Providers Care Bread Packer Name Role Phone Unavailable Primary Care Provider [...] Expiration Date Visits Re quested Visits Authorized [id number] Closed 02/02/2022 03/04/2023 1 1 Encounter Details Date Type Department Care Team (Late st Contact Info) Description 04/09/2015 Hospital Encounter [facility]) [address] [place] [phone] Social History Tobacco Use Types Packs/Day Years Used Date Smoking Tobacco: Former Cigarettes 0.5 19 1 973 - 1991 Passive Smoke Exposure: Past Smokeless Tobacco: Never Alcohol Use Standard Drinks/Week Comments Yes 0 (1 standard drink = 0.6 oz pur e alcohol) rarely [facility] Utilities Answer Date Recorded In the past 12 months has [facility] electric, gas, oil, or water company threatened [...] often do you attend chur ch or lutheran services? Patient unable to answer 04/01/2025 Do you belong to any clubs o r organizations such as zoroastrian groups, unions, fraternal or athletic groups, or [...] were you homeless or living in a [facility] (including now)? 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 There will be no report generated by a [facility] Radiologist. Narrative [facility] - 02/02/2022 3:03 PM CDT EXAMINATION: Images For Reference Purposes Only us Patricia Powell NP IMG MAMMO PROCEDURES Fin al Result [facility] documented in this encounter Visit Diagnoses Not on filedocumented in this encounter Additional Health Concerns Infection Onset Date Last Indicated Resolved Time COVID: Suspected 11/13/2021 11/13/2021 11/13/2021 2:41 PM HUMAN RESOURCES SUPERVISOR C. difficile suspected 02/19/2025 02/19/202502/21 2:35 PM CDT Ring Surveillance: C. auris Comment:[id number] 02/20/2025 02/20/2025 02/27/2025 7:26 PM C DT C. difficile suspected 03/31/2025 03/31/202503/31 7:21 PM CDT VRE 03/31/2025 03/31/2025 documented as of this encounter
--- OUTSIDE RECORDS SUMMARY | 2015-04-08 23:05 | XMS_ITS | Encounter Summary ---
Author Organization [facility] Healthcare Address [address] [place] [address] Care Team Providers Care Silver Plater Name Role Phone Unavailable Primary Care Provider Unavailabl e Reason for Visit * Diagnostic Imaging (Routine) - Closed Specialty Diagnoses / Procedures Referred By Chasity vanegas Referred To Contact Procedures Breast Imaging Diagnostic Outside Reference Patricia Powell NP Phone: tel: fax: Referral ID Status Reason Start Date Expiration Date Visits Re quested Visits Authorized [id number] Closed 02/02/2022 03/04/2023 1 1 Encounter Details Date Type Department Care Team (Late st Contact Info) Description 04/09/2015 12:05 AM CDT Hospital Encounter [facility]) [address] [place] [id number] Social History Tobacco Use Types Packs/Day Years Used Date Smoking Tobacco: Former Cigarettes 0.5 19 1 3 - 1991 Passive Smoke Exposure: Past Smokeless Tobacco: Never Alcohol Use Standard Drinks/Week Comments Yes 0 (1 standard drink = 0.6 oz pur e alcohol) rarely [facility] Utilities Answer Date Recorded In [...] often do you attend chur ch or episcopal services? Patient unable to answer 04/01/2025 Do [...] time in the past [address] [facility], were you homeless or living in a [facility] (including now)? 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 There will be no report generated by a [facility] Radiologist. Narrative RAD_MAMMO_[facility] - 02/02/2022 3:04 PM CDT EXAMINATION: Images For Reference Purposes Only us Patricia Powell NP IMG MAMMO PROCEDURES Fin al Result RAD_MAMMO_[facility] documented in this encounter Visit Diagnoses Not on filedocumented in this encounter Additional Health Concerns Infection Onset Date Last Indicated Resolved Time COVID: Suspected 11/13/2021 11/13/2021 11/13/2021 2:41 PM TEMPLATE CHECKER C. difficile suspected 02/19/2025 02/19/202502/21 2:35 PM CDT Ring Surveillance: C. auris Comment:[id number] 02/20/2025 02/20/2025 02/27/2025 7:26 PM C DT C. difficile suspected 03/31/2025 03/31/202503/31 7:21 PM CDT VRE 03/31/2025 03/31/2025 documented as of this encounter
--- OUTSIDE RECORDS SUMMARY | 2016-11-05 | XMS_ITS | Encounter Summary ---
Author Organization [facility] Healthcare Address [address] [place] [address] Care Team Providers Care Hogshead Press Operator Name Role Phone Unavailable Primary Care Provider Unavailabl e Reason for Visit * Diagnostic Imaging (Routine) - Closed Specialty Diagnoses / Procedures Referred By Chasity t Referred To Contact Procedures Breast Imaging Screening Outside Reference Patricia Powell NP Phone: tel: fax: Referral ID Status Reason Start Date Expiration Date Visits Re quested Visits Authorized [id number] Closed 02/02/2022 03/04/2023 1 1 Encounter Details Date Type Department Care Team (Late st Contact Info) Description 11/05/2016 Hospital Encounter [facility]) [address] [place] [address] Social History Tobacco Use Types Packs/Day Years Used Date Smoking Tobacco: Former Cigarettes 0.5 19 1 3 - 1991 Passive Smoke Exposure: Past Smokeless Tobacco: Never Alcohol Use Standard Drinks/Week Comments Yes 0 (1 standard drink = 0.6 oz pur e alcohol) rarely [facility] Utilities Answer Date Recorded In the [...] often do you attend chur ch or evangelical services? 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 There will be no report generated by a [facility] Radiologist. Narrative RAD_MAMMO_[facility] - 02/02/2022 3:04 PM CDT EXAMINATION: Images For Reference Purposes Only us Patricia Powell NP IMG MAMMO PROCEDURES Fin al Result RAD_MAMMO_[facility] documented in this encounter Visit Diagnoses Not on filedocumented in this encounter Additional Health Concerns Infection Onset Date Last Indicated Resolved Time COVID: Suspected 11/13/2021 11/13/2021 11/13/2021 2:41 PM CAR BRACER C. difficile suspected 02/19/2025 02/19/202502/21 2:35 PM CDT Ring Surveillance: C. auris Comment:[id number] 02/20/2025 02/20/2025 02/27/2025 7:26 PM C DT C. difficile suspected 03/31/2025 03/31/202503/31 7:21 PM CDT VRE 03/31/2025 03/31/2025 documented as of this encounter
--- OUTSIDE RECORDS SUMMARY | 2016-11-11 00:05 | XMS_ITS | Encounter Summary ---
Author Organization [facility] Healthcare Address [address] [place] [address] Care Team Providers Care Sql Analyst Name Role Phone Unavailable Primary Care Provider Unavailabl e Reason for Visit * Diagnostic Imaging (Routine) - Closed Specialty Diagnoses / Procedures Referred By Chasity t Referred To Contact Procedures Breast Imaging Diagnostic Outside Reference Patricia Powell NP Phone: tel: fax: Referral ID Status Reason Start Date Expiration Date Visits Re quested Visits Authorized [id number] Closed 02/02/2022 03/04/2023 1 1 Encounter Details Date Type Department Care Team (Late st Contact Info) Description 11/11/2016 12:05 AM BIAS CUTTER HELPER Hospital Encounter [facility] Radiology [facility] [address] [place] [id number] Social History Tobacco Use Types Packs/Day Years Used Date Smoking Tobacco: Former Cigarettes 0.5 19 1 3 - 1991 Passive Smoke Exposure: Past Smokeless Tobacco: Never Alcohol Use Standard Drinks/Week Comments Yes 0 (1 standard drink = 0.6 oz pur e alcohol) rarely [facility] Utilities Answer Date Recorded In [...] often do you attend chur ch or mormonism services? 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 There will be no report generated by a [facility] Radiologist. Narrative RAD_MAMMO_BJH - 02/02/2022 3:05 PM CDT EXAMINATION: Images For Reference Purposes Only us Patricia Powell NP IMG MAMMO PROCEDURES Fin al Result RAD_MAMMO_BJH documented in this encounter Visit Diagnoses Not on filedocumented in this encounter Additional Health Concerns Infection Onset Date Last Indicated Resolved Time COVID: Suspected 11/13/2021 11/13/2021 11/13/2021 2:41 PM BIAS CUTTER HELPER C. difficile suspected 02/19/2025 02/19/202502/21 2:35 PM CDT Ring Surveillance: C. auris Comment:[id number] 02/20/2025 02/20/2025 02/27/2025 7:26 PM C DT C. difficile suspected 03/31/2025 03/31/202503/31 7:21 PM CDT VRE 03/31/2025 03/31/2025 documented as of this encounter
--- OUTSIDE RECORDS SUMMARY | 2018-12-27 23:00 | XMS_ITS | Encounter Summary ---
Author Organization [facility] Healthcare Address [address] [place] [address] Care Team Providers Care Egg Trayer Name Role Phone Mike Douglass MD Primary Care Provider [phone] Reason for Visit * Diagnostic Imaging (Routine) - Closed Specialty Diagnoses / Procedures Referred By Chasity vanegas Referred To Contact Procedures Breast Imaging Screening Outside Reference Patricia Powell NP Phone: tel: fax: Referral ID Status Reason Start Date Expiration Date Visits Re quested Visits Authorized [id number] Closed 02/02/2022 03/04/2023 1 1 Encounter Details Date Type Department Care Team (Late st Contact Info) Description 12/28/2018 Hospital Encounter [facility]iology [facility] [address] [place] [id number] Social History Tobacco Use Types Packs/Day Years Used Date Smoking Tobacco: Former Cigarettes 0.5 19 1 973 - 1991 Passive Smoke Exposure: Past Smokeless Tobacco: Never Alcohol Use Standard Drinks/Week Comments Yes 0 (1 standard drink = 0.6 oz pur e alcohol) rarely [facility] Utilities Answer Date Recorded In the past 12 months has [employer] electric, gas, oil, or water company threatened [...] often do you attend chur ch or church services? Patient unable to answer 04/01/2025 Do you belong to any clubs o r organizations such as mu-ism groups, unions, fraternal or athletic groups, or [...] any time in the past 12 m [facility], were you homeless or living in a retirement (including now)? 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 There will be no report generated by a [facility] Radiologist. Narrative [facility]MAMMO[facility] - 02/02/2022 3:04 PM CDT EXAMINATION: Images For Reference Purposes Only us Patricia Powell NP IMG MAMMO PROCEDURES Fin al Result [facility] documented in this encounter Visit Diagnoses Not on filedocumented in this encounter Additional Health Concerns Infection Onset Date Last Indicated Resolved Time COVID: Suspected 11/13/2021 11/13/2021 11/13/2021 2:41 PM ZINC CHLORIDE OPERATOR C. difficile suspected 02/19/2025 02/19/202502/21 2:35 PM CDT Ring Surveillance: C. auris Comment:[id number] 02/20/2025 02/20/2025 02/27/2025 7:26 PM C DT C. difficile suspected 03/31/2025 03/31/202503/31 7:21 PM CDT VRE 03/31/2025 03/31/2025 documented as of this encounter Care Teams Egg Trayer Relationship Specialty Start Date End Date Mike Douglass MD [address] [place] [address] PCP - General Family Medicine 03/21/18 07/02/19 documented as of this encounter
--- OUTSIDE RECORDS SUMMARY | 2018-12-27 23:05 | XMS_ITS | Encounter Summary ---
Author Organization [facility] Healthcare Address [address] [place] [address] Care Team Providers Care Machine Operator Helper Name Role Phone Mike Douglass MD Primary Care Provider [phone] Reason for Visit * Diagnostic Imaging (Routine) - Closed Specialty Diagnoses / Procedures Referred By Chasity vanegas Referred To Contact Procedures Breast Imaging Screening Outside Reference Patricia Powell NP Phone: tel: fax: Referral ID Status Reason Start Date Expiration Date Visits Re quested Visits Authorized [id number] Closed 02/02/2022 03/04/2023 1 1 Encounter Details Date Type Department Care Team (Late st Contact Info) Description 12/28/2018 12:05 AM CDT Hospital Encounter [facility]iology [facility] [address] [place] [address] Social History Tobacco Use Types Packs/Day Years Used Date Smoking Tobacco: Former Cigarettes 0.5 19 1 3 - 1991 Passive Smoke Exposure: Past Smokeless Tobacco: Never Alcohol Use Standard Drinks/Week Comments Yes 0 (1 standard drink = 0.6 oz pur e alcohol) rarely [facility] Utilities Answer Date Recorded In the past 12 months has [employer] gas, oil, or water [employer] threatened to shut off services in your [...] often do you attend chur ch or mu-ism services? 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 There will be no report generated by a [facility] Radiologist. Narrative RAD[facility]MO[facility] - 02/02/2022 3:09 PM CDT EXAMINATION: Images For Reference Purposes Only us Patricia Powell NP IMG MAMMO PROCEDURES Fin al Result [facility] documented in this encounter Visit Diagnoses Not on filedocumented in this encounter Additional Health Concerns Infection Onset Date Last Indicated Resolved Time COVID: Suspected 11/13/2021 11/13/2021 11/13/2021 2:41 PM SHOPPING CENTRE MANAGER C. difficile suspected 02/19/2025 02/19/202502/21 2:35 PM CDT Ring Surveillance: C. auris Comment:[id number] 02/20/2025 02/20/2025 02/27/2025 7:26 PM C DT C. difficile suspected 03/31/2025 03/31/202503/31 7:21 PM CDT VRE 03/31/2025 03/31/2025 documented as of this encounter Care Teams Machine Operator Helper Relationship Specialty Start Date End Date Mike Douglass MD [address] [place] [address] PCP - General Family Medicine 03/21/18 07/02/19 documented as of this encounter
[2025-09-08] VITALS (28 sets, daily range): BP systolic 91–122; BP diastolic 46–74; PULSE 90–163; RESP 13–22; TEMP 36.4–36.9; O2SAT 96–100; BMI 16.9
--- NOTE | ~2025-09-08 | CT_ITS ---
EXAMINATION: CTA chest PE protocol DATE: 09/09/2025 15:50 INDICATION: Shortness of breath. Tachycardia. TECHNIQUE: Computed tomography angiography (CTA) of the chest was performed with 100 mL Omnipaque-350 intravenous contrast timed to evaluate the pulmonary arteries. Coronal maximum intensity projection 3D-reconstructions were created by the technologist. Automated exposure control and iterative reconstruction technique were employed. The dose-length product was 161.42 mGy-cm. COMPARISON: Chest x-ray dated 09/08/2025. FINDINGS: No acute pulmonary findings in both lungs. No evidence of pulmonary emboli. Thoracic aorta shows no acute findings. IMPRESSION: 1. No CT angiographic evidence of pulmonary emboli. Reviewed, dictated and finalized at location T. [place] STORE MANAGER
--- NOTE | ~2025-09-08 | XR_ITS ---
EXAMINATION: XR chest 1V portable DATE: 09/08/2025 18:47 INDICATION: Shortness of breath. TECHNIQUE: A single frontal view of the chest was obtained. COMPARISON: CT chest dated 07/06/2025. FINDINGS: Heart size is normal. Atherosclerotic aorta. Postoperative changes of right breast. Emphysematous lungs. Severe arthritis of right shoulder fracture. IMPRESSION: 1. No acute findings. Emphysematous lungs. Postoperative changes of right breast. Reviewed, dictated and finalized at location T. [employer] COMPUTER NETWORK ENGINEER IMPRESSION: 1. No acute findings. Emphysematous lungs. Postoperative changes of right breas t.
--- NOTE | 2025-09-08 15:20 | ECG_ITS ---
Test Date: 2025-09-08 15:24:01 Measurements Intervals [place] Rate: 163 P: 0 [place]: 0 QRS: 106 QRSD: 81 T: 127 QT: 283 QTc: 467 Interpretive Statements ATRIAL FLUTTER/TACHYCARDIA WITH RAPID VENTRICULAR RATE RIGHT AXIS DEVIATION ST-T WAVE ABNORMALITY IN INF/LAT LEADS- CONSIDER ISCHEMIA OR RATE RELATED BASELINE ARTIFACT- I, II, III, AVR, AVL, AVF, V1-V6 ABNORMAL ECG Compared to ECG 09/08/2025 14:44:30 NO SIGNIFICANT CHANGE Electronically Signed On 09-08-2025 21:41:15 SPORTS CLERK by Mckay Felder D.O.
--- NOTE | 2025-09-08 15:49 | ED.GENADULT ---
HPI - General Adult General Chief complaint: Unspecified Stated complaint: dry heaves, shakes from Time Seen by Provider: 09/08/25 15:44 Source: patient Mode of arrival: ambulatory Limitations: no limitations History of Present Illness HPI narrative: 70 years old white female complaining of dry heaves, shaking, runny nose for the last 2 days referred to our emergency room from urgent care because of shortness of breath. History of:/ovarian cancer, currently on chemotherapy and radiation therapy. Patient is telling me PET scan August 27 showed spread of the cancer Patient denies any fever chills or chest pain Related Data Home Medications ?Medication ?Instructions ?Recorded ?Confirmed ?Last Taken ?Type potassium chloride 20 mEq 20 meq PO BID 09/11/23 04/10/25 Unknown History tablet,extended release(part/cryst) (Klor-Con M) gabapentin 600 mg tablet 600 mg PO BID 07/16/24 04/10/25 Unknown History meloxicam 7.5 mg tablet 7.5 mg PO DAILY 07/16/24 04/10/25 Unknown History ondansetron HCl 8 mg tablet 8 mg PO Q8H PRN nausea and vomiting 07/16/24 04/10/25 Unknown History esomeprazole magnesium 40 mg 40 mg PO Q24H 02/11/25 04/10/25 Unknown History capsule,delayed release loratadine 10 mg tablet 10 mg PO Q24H PRN allergy symptoms 02/11/25 04/10/25 Unknown History pyridoxine (vitamin B6) 100 mg 250 mg PO .COMPLEX 02/11/25 04/10/25 Unknown History tablet cyanocobalamin (vitamin B-12) 6,000 mcg PO DAILY 04/10/25 04/10/25 Unknown History 1,000 mcg tablet famotidine 20 mg tablet 20 mg PO BID 04/10/25 04/10/25 Unknown History ferrous sulfate 325 mg (65 mg 325 mg PO DAILY 04/10/25 04/10/25 Unknown History iron) tablet (Feosol) fluoxetine 60 mg tablet 60 mg PO DAILY 04/10/25 04/10/25 Unknown History fluticasone propionate 50 1 spray intranasal PRN PRN rhinitis 04/10/25 04/10/25 Unknown History mcg/actuation nasal spray,suspension lidocaine-prilocaine 2.5 %-2.5 % 1 applic topical PRN PRN pain 04/10/25 04/10/25 Unknown History topical cream lorazepam 0.5 mg tablet (Ativan) 0.5 mg PO Q6H PRN nausea and 04/10/25 04/10/25 Unknown History vomiting oxycodone 5 mg tablet 5 mg PO Q4H PRN pain 04/10/25 04/10/25 Unknown History polyethylene glycol 3350 17 gram 17 g PO DAILY PRN constipation 04/10/25 04/10/25 Unknown History oral powder packet risedronate 35 mg tablet (Actonel) 35 mg PO ONCE 04/10/25 04/10/25 Unknown History triamcinolone acetonide 0.1 % 1 applic topical BID 04/10/25 04/10/25 Unknown History topical cream Allergies Allergy/AdvReac Type Severity Reaction Status Date / Time coconut Allergy Severe Anaphylaxis Verified 09/08/25 15:20 adhesive tape Allergy Unknown Other Verified 09/08/25 15:20 celecoxib (From Celebrex) AdvReac Rash Verified 09/08/25 15:20 Review of Systems Review of Systems: All systems reviewed & are unremarkable except as noted in HPI and below PMFSH Past Medical History Medical History 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 CT scan of the abdomen/pelvis shows a rectal and cecal anastomosis. History of cholecystectomy History of right mastectomy History of total abdominal hysterectomy and bilateral salpingo-oophorectomy History of left knee replacement (2022) Family History Family History Mother Family history of malignant neoplasm of breast in first degree relative Father Family history of lung disease Daughter Breast cancer History of hysterectomy Social History Social History Social History: She lives with her of 32 years. 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 She has 2 daughters and a son. Her youngest daughter was just diagnosed with breast cancer. She used to smoke up to a pack of cigarettes per day but then would not smoke for up to a week after that. She did this for proximally 30 years but quit smoking in the . She denies any history of heavy alcohol use or illicit substance use. She ambulates with a Rollator. Code status: Full code Surrogate decision maker: Smoking packs per day: 0.5 Smoking cigarettes per day: 10.0 Years smoked: 5 Smoking pack-years: 2.50 Smoking status: Former smoker Alcohol intake: never Substance use: never Substance use type: does not use Lack of Transportation: No Lack of Food: Never True Current Housing: I Have Housing Concerned About Future Housing: No Difficulty Paying Gas/Electric Bills: No Difficulty Paying for Meds: No Currently Unemployed: No Education: High School Diploma/GED Difficulty w/ Childcare or Family Care: No Gender identity (if verbalized by the patient): Male Sexual Orientation (if Verbalized by the Patient): Straight or Heterosexual Spiritual care concerns: No Agree to blood products: Yes Exam Narrative: General appearance: Well-developed, malnourished Skin: Normal color Head: Normocephalic, nontraumatic Eyes: Clear conjunctiva ENT: Oropharynx normal, ears normal, nose normal Neck: Supple, nontender Chest and respiratory: Airway patent, no respiratory distress, no accessory muscle use Heart: Tachycardia, irregular irregularity Abdomen: Soft, nontender, no organomegaly, quiet bowel sounds Vascular: Normal peripheral pulses, normal capillary refill. Musculoskeletal: Normal range of motion, nontender back Neurologic: Alert and oriented ?3, IT INFRASTRUCTURE ENGINEER is normal as tested, no gross motor deficit Course Vital Signs Vital signs: Vital Signs Temperature 36.4 C L 09/08/25 15:20 Pulse Rate 153 H 09/08/25 15:20 Respiratory Rate 16 09/08/25 15:20 Blood Pressure 98/56 L 09/08/25 15:20 Pulse Oximetry 99 09/08/25 15:20 Oxygen Delivery Room Air 09/08/25 15:20 Temperature 36.4 C L 09/08/25 15:20 Pulse Rate 92 09/08/25 18:30 Respiratory Rate 20 09/08/25 18:30 Blood Pressure 98/68 L 09/08/25 18:30 Pulse Oximetry 98 09/08/25 18:30 Oxygen Delivery Room Air 09/08/25 15:20 MDM MDM Narrative Medical decision making narrative: Patient came to the ED with shortness of breath and shaking Vital sign blood pressure 98/56 heart rate 153 otherwise within normal limit Physical examination showing malnourished patient, shaking, tachycardia Differential diagnosis include cardiac arrhythmia, electrolyte imbalance, dehydration, pneumonia Blood workup today includes CBC, CMP, troponin, pro BMP showed hemoglobin 8.9, potassium 3.2/40 mEq p.o. given, proBNP 3080 EKG on arrival showed SVT 163 beats per minute Chest x-ray showed no acute abnormality Diagnosis SVT, hypokalemia Admit to hospitalist Differential Diagnosis Differential Diagnosis: As above Medical Records I have reviewed the following patient records and this information was taken into consideration when formulating the assessment and plan.: previous labs, previous ER visits, previous hospitalizations and previous clinic visits Lab Data 09/08/25 16:17 09/08/25 16:17 Labs: Lab Results 09/08/25 Range/Units 16:17 WBC 6.9 (4.5-10.0) K/mm3 RBC 2.58 L (4.2-5.4) M/mm3 Hgb 8.9 L (12.0-15.0) g/dL Hct 26.5 L (37.0-47.0) % MCV 102.7 H (80-100) fl MCH 34.5 H (26-34) pg MCHC 33.6 (32-36) g/dl RDW 14.3 (11.5-14.5) % Plt Count 239 (150-375) k/mm3 MPV 9.6 (7.4-10.4) fl Immature Gran % (Auto) 0.3 (0-0.5) % Neut % (Auto) 71.1 (45.5-73.1) % Lymph % (Auto) 16.3 L (18.3-44.2) % Marin % (Auto) 11.0 H (2.6-8.5) % Eos % (Auto) 1.0 (0-4.4) % Baso % (Auto) 0.3 (0.2-1.2) % Lymph # (Auto) 1.12 (0.9-3.2) K/mm3 Marin # (Auto) 0.8 H (0.1-0.6) K/mm3 Eos # (Auto) 0.1 (0-0.3) K/mm3 Baso # (Auto) 0.0 (0.0-0.1) K/mm3 Abs Immat Gran (auto) 0.02 (0.00-0.031) K/mm3 Absolute Neuts (auto) 4.9 (1.3-6.7) K/mm3 Absolute Nucleated RBC 0.000 (0.0-0.012) K/mm3 Nucleated RBC % 0.0 (0.0-0.2) % PT 14.2 (11.1-14.7) Seconds INR 1.1 APTT 28.4 (22.3-36.8) Seconds Sodium 137 (137-145) mmol/L Potassium 3.2 L (3.4-5.0) mmol/L Chloride 104 (98-107) mmol/L Carbon Dioxide 28 (22-30) mmol/L Anion Gap 5 (4-12) mmol/L BUN 11 (7-17) mg/dL Creatinine 1.18 H (0.7-1.0) mg/dL Estim Creat Clear Calc 30 ml/min Estimated GFR 45 L (59 - ) Glucose 93 (65-110) mg/dL Calcium 8.3 L (8.4-10.2) mg/dL Total Bilirubin 0.5 (0.2-1.3) mg/dL AST 31 (14-36) U/L ALT 17 (6-35) U/L Alkaline Phosphatase 135 H (38-126) U/L Troponin I < 0.012 (0.000-0.034) ng/mL NT-Pro-B Natriuret Pep 3080 H (19.9-100) pg/mL Total Protein 6.1 L (6.3-8.2) g/dL Albumin 3.1 L (3.5-5.1) g/dL Imaging Data Radiologist's impression: Impressions Chest X-Ray 09/08/25 18:48 IMPRESSION: 1. No acute findings. Emphysematous lungs. Postoperative changes of right breast. ECG Data EKG #1: Attestation: I personally reviewed and interpreted this ECG as follows: ECG completion date: 09/08/25 Interpretation: SVT 163 beats per minute, right axis deviation, moderate ST depression, Critical Care Time Critical Care Time Critical Care Time: Yes Time Type: Intermittent Initial evaluation, discuss w/ involved parties, attempting to gather old records: 10 minutes Documenting medical record: 5 minutes Review of results (EKG's, labs, imaging): 5 minutes Serial repeat bedside evaluation: 10 minutes Discussing case with multiple memebers of the care team and consultants: 5 minutes Total Critical Care Time: 35 Discharge Plan Discharge Clinical Impression: Hypokalemia, SVT (supraventricular tachycardia) Patient Disposition: Still a Patient Condition: Improved Patient Language: Syriac Prescriptions: No Action potassium chloride [Klor-Con M20] 20 mEq tablet,ER particles/crystals 20 meq PO BID gabapentin 600 mg tablet 600 mg PO BID ondansetron HCl 8 mg tablet 8 mg PO Q8H PRN (Reason: nausea and vomiting) meloxicam 7.5 mg tablet 7.5 mg PO DAILY esomeprazole magnesium 40 mg capsule,delayed release(DR/EC) 40 mg PO Q24H pyridoxine (vitamin B6) 100 mg tablet 250 mg PO .COMPLEX Rx Instructions: 250 mg orally; loratadine 10 mg tablet 10 mg PO Q24H PRN (Reason: allergy symptoms) dicyclomine 10 mg capsule 10 mg PO BID PRN (Reason: abdominal pain) Qty: 20 0RF simethicone 125 mg capsule 125 mg PO DAILY PRN (Reason: gas) Qty: 20 0RF sulfamethoxazole-trimethoprim [Bactrim DS] 800-160 mg tablet 1 tablet PO Q12H 5 Days Qty: 10 0RF famotidine 20 mg tablet 20 mg PO BID ferrous sulfate [Feosol] 325 mg (65 mg iron) tablet 325 mg PO DAILY fluoxetine 60 mg tablet 60 mg PO DAILY fluticasone propionate 50 mcg/actuation spray,suspension 1 spray INTRANASAL PRN PRN (Reason: rhinitis) lidocaine-prilocaine 2.5-2.5 % cream 1 applic topical PRN PRN (Reason: pain) Rx Instructions: Apply 1 hour prior to IV access and cover. lorazepam [Ativan] 0.5 mg tablet 0.5 mg PO Q6H PRN (Reason: nausea and vomiting) oxycodone 5 mg tablet 5 mg PO Q4H PRN (Reason: pain) polyethylene glycol 3350 17 gram powder in packet 17 g PO DAILY PRN (Reason: constipation) triamcinolone acetonide 0.1 % cream 1 applic topical BID cyanocobalamin (vitamin B-12) 1,000 mcg tablet 6,000 mcg PO DAILY risedronate [Actonel] 35 mg tablet 35 mg PO ONCE Rx Instructions: administer at least 30 minutes before the first food or drink of the day other than water. Follow-up/Referrals: Radha,Ceci Goddard, TUG MASTER [Primary Care Provider, Family Practice]
--- OUTSIDE RECORDS SUMMARY | 2025-09-08 15:53 | XMS_ITS | Clinical Summary ---
Author Organization [facility] Address [facility] [place] [address] Care Team Providers Care Cardroom Manager Name Role Phone Cipriano Potts MD Unavailable [phone] Ceci Garcia NP Primary Care Provider [phone] Allergies Active Allergy Reactions Criticality Noted Date Comments Celecoxib Rash Medium 07/27/2024 Coconut (Cocos Nucifera) Anaphylaxis High 07/27/2024 Patient states her throat closes up Prochlorperazine Shakiness 06/22/2025 Also known as compazine Tape Rash,Contact Dermatitis,Other (see comment) High 05/31/2019 Ok w/ paper tape Medications fluticasone propionate (FLONASE) 50 MCG/ACT nasal sprayIndications :allergies SPRAY 1 SPRAY INTO EACH NOSTRIL EVERY DAY 16 mL 2 2 Active pyridoxine (VITAMIN B-6) 100 MG tabletIndication s:vitamin deficiency Take 1 tablet (100 mg total) by mouth 2 (two) times a day. Indications: vitamin deficiency Active Multiple Vitamins-Mineral s (MULTIVITAMIN GUMMIES ADULT) Chew TabIndications:v itamin deficiency Chew 1 chewable tablet by mouth daily. Indications: vitamin deficiency 3 Active ondansetron (ZOFRAN) 8 MG tablet Active potassium chloride CR (K-TAB) 20 MEQ tablet Take 1 tablet (20 mEq total) by mouth 2 (two) times daily. 3 Active acetaminophen (TYLENOL) 325 MG tablet Take 2 tablets (650 mg total) by mouth as needed. 4 Active FLUoxetine (PROZAC) 40 MG capsuleIndicatio ns:Recurrent major depressive disorder, in full remission Take 1 capsule (40 mg total) by mouth daily. 90 capsule 1 5 Active KLOR-CON M20 20 MEQ tablet Take 1 tablet (20 mEq total) by mouth 2 (two) times daily. Active Vitamin D3 (CHOLECALCIFEROL ) 50 mcg tablet Take 1 tablet (50 mcg total) by mouth daily. Active famotidine (PEPCID) 20 MG tabletIndication s:Gastroesophage al reflux disease, unspecified whether esophagitis present TAKE 1 TABLET BY MOUTH TWICE A DAY 180 tablet 1 5 Active Additional Information Patient not taking.Reported on 07/31/2025 esomeprazole (NEXIUM) 40 MG capsuleIndicatio ns:Gastroesophag eal reflux disease, unspecified whether esophagitis present Take 1 capsule (40 mg total) by mouth daily. 90 capsule 5 Active loratadine (CLARITIN) 10 MG tabletIndication s:Post-nasal drainage TAKE 1 TABLET BY MOUTH EVERY DAY NEEDED 90 tablet 3 5 Active gabapentin (NEURONTIN) 600 MG tabletIndication s:Polyneuropathy associated with underlying disease (HHS/HCC) TAKE 1 TABLET BY MOUTH TWICE A DAY 180 tablet 1 5 Active Simethicone (GAS-X OR) Active Active Problems Problem Noted Date Diagnosed Date [...] Malignant neoplasm of unspecified ovary 08/01/20 24 Assessment & Plan (06/22/2025 11:02 AM CDT): Undergoing radiation Rx. Awaiting PET scan in 2 months. manager terminal (current) use of n on-steroidal anti-inflammatories (nsaid) 08/01/2024 Personal history of nicotine dependence 08/01/20 Presence of left artificial knee joint Urinary tract infection, site not specified 03/2024 Pain 12/29/2022 Diarrhea 12/29/2022 Status post total left knee replacement 12/23/19 23 Assessment & Plan (11/08/2023 2:40 PM TOP CLOSER): Recommendation at this time is to continue [...] location 0 04/17/2020 Constipation, unspecified constipation type 01/2020 Anemia, unspecified type 03/21/2020 Pure hypercholesterolemia [...] surgery. Assessment & Plan (09/02/2022 10:39 AM TOP CLOSER): We discussed the risks, benefits and alternatives. [...] Encounters Date Type Department Care Team Description 08/15/2025 Scan [employer] SRVCS Scanned, [facility] 07/31/2025 1:40 PM TOP CLOSER Office Visit [facility] - [address] [place] [address] Selina Palacios MD New Patient (Abnormal labs) 07/31/2025 Travel 07/26/2025 Scan [employer] SRVCS Scanned, [facility] 07/11/2025 Scan [facility] Scanned, [facility] 07/06/2025 Scan [facility] Scanned, Doc Med Group CT (SCAN); Image (SCAN) 06/26/2025 Orders Only [facility] & Internal [address] [phone] Ceci Garcia NP 06/22/2025 1:50 PM CDT - 06/22/2025 11:59 PM CDT Hospital Encounter [facility] Laboratory [address] [place] [id number] Aleksey Tatum MD Discharge Disposition: Home or Self Care (Routine Discharge) 06/22/2025 11:10 AM CDT Laboratory Only [facility] Internal [address] [phone] Aleksey Tatum MD 06/22/2025 10:20 AM CDT Office Visit [facility] Family Internal [address] [phone] Aleksey Tatum MD Follow Up (med refill this a reschedule from Radha canceled on 06/15/25) 06/22/2025 Results Follow-Up [facility] Internal [address] [phone] Aleksey Tatum MD BASIC METABOLIC PANEL 06/22/2025 [...] Shingrix 06/15/2022,04/11/2022 Tdap (Adacel) 04/15/2021 Zoster (Zostavax) [address]6023 Unt/0.65Ml 06/11/2019, Family History Medical History Relation [...] week 12/29/2022 How often do you attend [facility] or mandae[facility] services? More than 4 times per year [...] Recorded Patient Health Questionnaire-2 Score 0 07/31/2025 [facility] - Occupational Stress [...] place to sleep or slept in a jail (including now)? No 12/29/2022 Education Answer Date [...] Comments Blood Pressure 90/50 07/31/2025 1:37 PM TOP CLOSER Pulse 91 07/31/2025 1:37 PM TOP CLOSER Temperature 35.6 C (96 F) 07/31/2025 1:37 PM TOP CLOSER Respiratory Rate 16 06/22/2025 10:22 AM CDT Oxygen Saturation 93% 07/31/2025 1:37 PM TOP CLOSER Inhaled Oxygen Concentration - - Weight 51.3 kg (113 lb) 07/31/2025 1:37 PM TOP CLOSER Height 167.6 cm (5' 6) 06/22/2025 10:22 AM CDT Body Mass Index 18.24 06/22/2025 10:22 AM CDT Plan of Treatment Upcoming Encounters Date Type Department Care Team (Late st Contact Info) Description 09/19/2025 10:20 AM TOP CLOSER Office Visit [facility] Family & Internal Medicine - [place] [address] [place] [address] [place] [phone] [facility] [address] [place] [address] Health Maintenance Due Date Last [...] 04/14, 02/19/2025, Additional history exists PHQ-2 (Physician [place]) Completed 07/31/2025 Hepatitis A Vaccines Aged Out [...] this topic Medical Devices Implanted Type Area Pcat Instructor Device Identifier Shelf Expiration Date Model / Serial / Lot Baseplate Tibial Triathlon 5 Knee Tritanium - [id number] Implanted:Qty: 1 on 12/22/2022 by Arvind Hewitt DO at [facility] Knee Components Left: Knee [employer] [id number] 09/20/2027 5536-B-5 00 / / [id number] Component Femoral Triathlon [employer] - [id number] Implanted:Qty: 1 on 12/22/2022 by Arvind Hewitt DO at [facility] Knee Components Left: Knee [employer] [id number] 10/16/2027 5517-F-4 01 / / [id number] Component Patellar 9mm 29mm Asymmetric Triathlon Tritanium Metal Knee Sterile - [id number] Implanted:Qty: 1 on 12/22/2022 by Arvind Hewitt DO at [facility] Patella Left: Knee [employer] [id number] 10/28/2027 5552-L-2 99 / / [id number] On-Q Antimicrobial Expansion Kits With Silversoaker Antimicrobial Catheter Implanted:Qty: 1 on 12/22/2022 by Arvind Hewitt DO at [facility] Left: Knee [employer] [id number] 10/04/2024 TV096-E / / [id number] Triathlon X3 Tibial Bearing Insert Cs Implanted:Qty: 1 on 12/22/2022 by Arvind Hewitt DO at [facility] Left: Knee [employer] [id number] 09/24/2026 5531-G-5 11-E / / [id number] Explanted Type Area Pcat Instructor Device Identifier Shelf Expiration Date Model / Serial / Lot Pin [place] Bone Jose 110 X 4 - [id number] Explanted:Qty: 1 on 12/22/2022 at [facility] Pin Left: Knee [employer] [id number] 10/14/2027 [id number] / / [id number] Pin Scott Bone Jose 170 X 4 - [id number] Explanted:Qty: 1 on 12/22/2022 at [facility] Pin Left: Knee [employer] [id number] 09/02/2027 [id number] / / [id number] Checkpoint Kit Explanted:Qty: 1 on 12/22/2022 at [facility] Left: Knee [employer] [id number] 08/26/2027 [id number] / / [id number] Procedures Procedure Name Priority Date/Time Associated Diagnosis [...] Anatomical Region Laterality Modality Other 07/06/2025 [facility] Scanned SCANNING Final Resu lt * IMAGE GENERIC (07/06/2025) Anatomical Region Laterality Modality Other 07/06/2025 [facility] Scanned SCANNING Final Resu lt * (ABNORMAL) BASIC METABOLIC PANEL (06/22/2025 11:10 AM CDT) GLUCOSE 92 70 - 99 MG/DL 06/22/2025 2:30 PM CDT [facility] BUN 10 7 - 18 MG/DL 06/22/2025 2:30 PM CDT [facility] CREATININE S/P/B 1.26(H) 0.55 - 1.02 MG/DL 06/22/2025 2:30 PM CDT [facility] SODIUM S/P/B 135(L) 136 - 145 MMOL/L 06/22/2025 2:30 PM CDT [facility] POTASSIUM S/P/B 4.5 3.5 - 5.1 MMOL/L 06/22/2025 2:30 PM CDT [facility] CHLORIDE S/P/B 102 100 - 108 MMOL/L 06/22/2025 2:30 PM CDT [facility] CO2 20.7(L) 21 - 32 MMOL/L 06/22/2025 2:30 PM T [facility] CALCIUM S/P/B 8.6 8.5 - 10.1 MG/DL 06/22/2025 2:30 PM CDT [facility] ANION GAP 12.3 5 - 15 MMOL/L 06/22/2025 2:30 PM T [facility] BUN CREATININE RATIO 7.9 6 - 26 06/22/2025 2:30 PM CDT [facility] GFR ESTIMATE 46(L) >90 ML/MIN/1.7 3 M2 06/22/2025 2:30 PM CDT [facility] Comment: NOTE: eGFR is not calculated for patients <18 years of age. This is an estimated GFR calculation using the new CKD EPI creatinine equation without race and so does not require a correction factor for race. This estimated GFR should not be used for calculating drug doses. 06/22/2025 11:1 0 AM CDT us Aleksey Tatum MD LABORATORY Final Resul t [facility] [address] [place] [address], [place] [phone] * CT CHEST+ABD+PEL WO CON (02/19/2025 12:16 [...] 12:31 PM Narrative 02/19/2025 12:55 PM CDT [facility] [address] [place] [address] EXAMINATION: CT CHEST ABDOMEN PELVISwithout Contrast EXAM [...] Procedure Note Michael Torres MD - 02/19/2025 [facility] [address] [place] [address] EXAMINATION: CT CHEST ABDOMEN PELVISwithout Contrast EXAM [...] Zoltan Allan MD CT Final Result * MAMMOGRAM GENERIC (03/24/2023) Anatomical Region Laterality Modality Other 03/24/2023 [facility] Scanned SCANNING Final Resu lt * BONE DENSITY/DEXA (04/30/2022 12:37 PM CDT) [...] VE NON-REACTI VE 05/02/2019 9:53 AM CDT [facility] 05/01/2019 11:0 0 AM CDT Celia Bowers MD LABORATORY Final Result [facility] [address] [place] [address], [place] [phone] from Last 3 Months or Most Recently [...] 11:13 AM 12/23/2022 3:01 PM Care Teams Cardroom Manager Relationship Specialty [place] [address] [address] PCP - General Nurse Practitioner Family 11/27/24 Cipriano Potts MD [id number] [place] [address] [place] [employer] Stitcher CARDIOVASCULAR DISEASE 05/10/19
--- OUTSIDE RECORDS SUMMARY | 2025-09-08 15:53 | XMS_ITS | Encounter Summary ---
Author Organization [facility] Healthcare Address [address] [place] [address] Care Team Providers Care Pain Management Nurse Name Role Phone Suhail Marie MD Unavailable [phone] Robin Pimentel MD Unavailable [phone] Ceci Garcia NP Primary Care Provide r Encounter Details Date Type Department Care Team (Late st Contact Info) Description 05/10/2025 Documentation [facility] Radiation Oncology [address] [facility] Advanced Medicine [facility] [place] [address] Annie Gilbert RN Social History Tobacco Use Types Packs/Day Years Used Date Smoking Tobacco: Former Cigarettes Q uit: 1991 Smokeless Tobacco: Never Alcohol Use Standard Drinks/Week Comments Not Currently 0 (1 standard drink = 0.6 oz pur e alcohol) rarely [facility] Utilities Answer Date Recorded In the [...] often do you attend chur ch or anabaptism services? Patient unable to answer 04/01/2025 Do you belong to any clubs o r organizations such as latter-day groups, unions, fraternal or athletic groups, or [...] were you homeless or living in a custodial (including now)? 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
--- OUTSIDE RECORDS SUMMARY | 2025-09-08 15:53 | XMS_ITS | Encounter Summary ---
Author Organization [facility] Address [address] [place] [address] Care Team Providers Care Automotive Service Assistant Name Role Phone Cipriano Potts MD Unavailable [phone] Laurita German Primary Care Provider + [phone] Tsering oHff PA-C Primary Care Provider [phone] Ceci Garcia NP Primary Care Provider + [phone] Encounter Details Date Type Department Care Team (Late st Contact Info) Description 03/15/2023 MyChart Message Enc [facility] Medical Group Orthopedic & Sports Medicine - [place] [address] [place], [place] [id number] [phone] Brian Bryant NP [address] [facility] [place] [address] Nerve Test Results Social History Tobacco Use [...] How often do you attend chur or moravian services? More than 4 times per year 12/29/2022 Do you belong to any clubs o r organizations such as amish groups, unions, fraternal or athletic groups, or [...] Recorded Patient Health Questionnaire-2 Score 0 01/26/2023 [facility] - [...] place to sleep or slept in a residential (including now)? 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 [address] [facility] [place] [address] documented as of this encounter Visit Diagnoses Not on filedocumented in this encounter Additional Health Concerns Assessment Noted Time PHQ-9 Depression Total Score: 0 07/03/20 22 10:52 AM CDT documented as of this encounter Care Teams Automotive Service Assistant Relationship Specialty [place] [address] [place] [address] PCP - General PHYSICIAN CLIENT SERVICE EXECUTIVE 03/20/20 07/20/23 Tsering Hoff PA-C [address] [place] [address] PCP - General PHYSICIAN CLIENT SERVICE EXECUTIVE 07/21/23 11/26/24 [place] [address] [address]. [place] [address] PCP - General Nurse Practitioner Family 11/27/24 Cipriano Potts MD [address] [facility] [address] [place] [id number] [place] [employer] Surface Fabricator CARDIOVASCULAR DISEASE 05/10/19 documented as of this encounter
--- OUTSIDE RECORDS SUMMARY | 2025-09-08 15:53 | XMS_ITS | Encounter Summary ---
Author Organization [facility] Address [address] [place] [address] Care Team Providers Care Media Production Support Manager Name Role Phone Cipriano Potts MD Unavailable [phone] Laurita German Primary Care Provider + [phone] Tsering Hoff-C Primary Care Provider [phone] Ceci Garcia NP Primary Care Provider + [phone] Encounter Details Date Type Department Care Team (Late st Contact Info) Description 03/27/2020 Prep for Procedure [facility] [address] [place] [address] Kaylah Baker MD [address] [facility] [address] [place] [address] [place] [address] Social History Tobacco Use Types Packs/Day [...] 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 Not on file [...] Contact Info) Description 09/19/2025 10:20 AM ASSISTANT MEDIA PLANNER Office Visit [facility] Medical Group Family & Internal Medicine [facility] [address] [place] [address] [place] [address] [place] [address] documented as of this encounter Results * PRE-SURGICAL/PRE-PROCEDURE CORONAVIRUS (COVID 19) (04/01/2020 7:46 AM CDT) CORONAVIRUS SARS COV 2 PCR (RESP) NOT DETECTED NOT DETECTED 04/03/2020 9:18 AM CDT [facility] Comment: A Not Detected (negative) test result [...] providers and patients using the following websites: https://www.[facility].com/home/Covid-19/HCP/NAAT/fact-sheet2 https://www.[facility]Dot [facility]/home/Covid-19/Patients/NAAT/ fact-sheet2 This test has been authorized by the FDA under an Emergency Use Authorization (EUA) for use by authorized laboratories. Due to the current public health emergency, [facility] is receiving a high volume of samples [...] about COVID-19 can be found at the [facility] website: www.[facility].Dot [facility]/Covid19. Test performed at [facility] [address] [place] [address] Director: CARLITOS AGUIRRE DO,MPH NASOPHARYNGEAL SWAB / Unknown 04/01/2020 7:46 AM CDT us Kaylah Baekr MD MICROBIOLOGY - GENERAL ORDER BRYCE Final Result [facility] [id number] [place] [id number] [place] [address] documented in this encounter Visit Diagnoses Diagnosis [...] documented as of this encounter Care Teams Media Production Support Manager Relationship Specialty [place] [address] [place] [address] PCP - General PHYSICIAN NURSE PRN 03/20/20 07/20/23 Tsering Hoff PA-C [address] [place] [address] PCP - General PHYSICIAN NURSE PRN 07/21/23 11/26/24 [place] [address] [address] [address]. [place] [address] PCP - General Nurse Practitioner Family 11/27/24 Cipriano Potts MD [address] [facility] [address] [place] [address] [place] Burlap Man CARDIOVASCULAR DISEASE 05/10/19 documented as of this encounter
--- OUTSIDE RECORDS SUMMARY | 2025-09-08 15:53 | XMS_ITS | Encounter Summary ---
Author Organization [facility] Address [address] [place] [address] Phone Care Team Providers Care Director Of Contracts Name Role Phone Laurita German Primary Care Provider [phone] Unknown, Notinfile Unavailable Unavailable Suhail Marie MD Unavailable [phone] Robin Pimentel MD Unavailable Tsering Hoff Primary Care Provider [phone] Ceci Garcia TABLET MACHINE OPERATOR Primary Care Provide r Encounter Details Date Type Department Care Team (Late st Contact Info) Description 05/29/2020 Documentation [facility] [address] [place] [address] Dilan Marroquin RPh Social History Tobacco Use [...] on file Legal Sex Female 4:24 AM X RAY TECHNICIAN Gender Identity Not on file Sexual Orientation Not on file 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 difficile suspected 02/19/2025 02/19/202502/21 2:35 PM CDT [facility]: C. auris Comment:[id number] 02/20/2025 02/20/2025 02/27/2025 7:26 PM C DT C. difficile suspected 03/31/2025 03/31/202503/31 7:21 PM CDT VRE 03/31/2025 03/31/2025 documented as of this encounter Care Teams Director Of Contracts Relationship Specialty Start Date End Date Laurita German PA PCP - General 04/18/20 04/19/24 [place] [address] [facility] [employer] [address] PCP - General Physician Assistant Director Of Public Works 04/20/24 01/04/25 [place] [address] [address] PCP - General Nurse Practitioner 01/05/25 Unknown, Notinfile Referring Physician 10/17/20 07/27/23 Suhail Marie MD [address] [place] [address] Internal Medicine 07/28/23 Robin Pimentel MD [address] [place] [address] Internal Medicine 07/28/23 documented as of this encounter
--- OUTSIDE RECORDS SUMMARY | 2025-09-08 15:53 | XMS_ITS | Encounter Summary ---
Author Organization [facility] Healthcare Address [address] [place] [address] Care Team Providers Care Supervisor Customer Complaint Service Name Role Phone Suhail Marie MD Unavailable [phone] Robin Pimentel MD Unavailable [phone] Tsering Hoff Primary Care Provider [phone] Ceci Garcia NP Primary Care Provide r Encounter Details Date Type Department Care Team (Late st Contact Info) Description 06/05/2024 Treatment [facility] [address] [facility] [address] [place] [address] Mary Jennings MD [address] [facility] 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 Patient [...] this patient. Contact Information: Please contact the [facility] Transfusion Medicine Service at (option 1) [...] as of this encounter Care Teams Supervisor Customer Complaint Service Relationship Specialty [place] [address] [place] [address] PCP - General Physician Boiler Out 04/20/24 01/04/25 [place] [address] [address] PCP - General Nurse Practitioner 01/05/25 Suhail Marie MD [address] [place] [address] Internal Medicine 07/28/23 Robin Pimentel MD [address] [place] [address] Internal Medicine 07/28/23 documented as of this encounter
--- OUTSIDE RECORDS SUMMARY | 2025-09-08 15:53 | XMS_ITS | Clinical Summary ---
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 20 tablet 3 025 Active acetaminophen (TYLENOL) 325 mg tabletIndications :Pain Take 2 tablets (650 mg total) by mouth every 6 (six) hours as needed for pain Active triamcinolone (KENALOG) 0.1 % cream Per instructions 2 TIMES DAILY (route: topical) Active cholecalciferol (Vitamin D3) 2000 unit tabletIndications :Prevention of Vitamin D Deficiency Take 2 tablets (4,000 Units total) by mouth nightly Active oxyCODONE (ROXICODONE) 5 mg immediate release tabletIndications :Pain Take 1 tablet (5 mg total) by mouth every 4 (four) hours as needed for pain Active senna-docusate (PERICOLACE) 8.6-50 mgIndications:con stipation Take 1 tablet by mouth daily as needed for constipation Active pyridoxine (VITAMIN B-6) 100 mg tabletIndications :supplement Take 2 tablets (200 mg total) by mouth 2 (two) times a day Active midodrine (PROAMATINE) 5 mg tabletIndications :Symptomatic Orthostatic Hypotension Take 1.5 tablets (7.5 mg total) by mouth daily as needed (Symptomatic orthostatic HoTN) Active MECOBALAMIN, VITAMIN B12, ORALIndications:s upplement Take 1,250 mcg by mouth daily as needed (supplement) Active polyethylene glycol (Miralax) 17 gram/dose bulk powderIndications :constipation Take 17 g by mouth daily as needed (constipation) Active magnesium oxide (MAG-OX) 400 mg (241.3 mg elemental magnesium) tabletIndications :hypomagnesemia Take 1 tablet (400 mg total) by mouth daily as needed (supplement) Active LORazepam (ATIVAN) 0.5 mg tabletIndications :anxiety Take 1 tablet (0.5 mg total) by mouth every 6 (six) hours as needed for anxiety Active loratadine (CLARITIN) 10 mg tabletIndications :Allergic Conjunctivitis,Al lergic Rhinitis Take 1 tablet (10 mg total) by mouth supervisor mirror fabrication before breakfast Active lidocaine-priloca ine creamIndications: Administration of Local Anesthesia Apply 1 g (1 Application total) topically as needed for other (prior to port access) Active potassium chloride ER (Klor-Con M20) 20 mEq CR tabletIndications :supplement Take 1 tablet (20 mEq total) by mouth 2 (two) times a day Active gabapentin (NEURONTIN) 600 mg tabletIndications :Neuropathic Pain Take 1 tablet (600 mg total) by mouth 2 (two) times a day Active fluticasone propionate (FLONASE) 50 mcg/actuation nasal sprayIndications: Allergic Conjunctivitis,Al lergic Rhinitis Administer 1 spray into affected nostril(s) daily as needed for allergies or rhinitis Active FLUoxetine (PROzac) 60 mg tabletIndications :Dysphoric Mood Take 1 tablet (60 mg total) by mouth daily as needed (mood) Active ferrous sulfate 325 mg (65 mg of elemental iron) tabletIndications :Iron Deficiency Anemia Take 1 tablet (325 mg total) by mouth daily with breakfast Active famotidine (PEPCID) 20 mg tabletIndications :Heartburn Take 1 tablet (20 mg total) by mouth 2 (two) times a day as needed for heartburn Active esomeprazole DR (NexIUM) 40 mg capsuleIndication s:Treatment of Non-Bleeding Gastric Disorder Take 1 capsule (40 mg total) by mouth daily before breakfast Active DULoxetine 60 mg capsule, delayed rel sprinkle Take 1 capsule (60 mg total) by mouth Active DULoxetine 40 mg capsule,delayed release(DR/EC)Ind ications:Neuropat hic Pain Take 1 capsule by mouth supervisor mirror fabrication before breakfast Active al-mag hydroxide-simethi cone, diphenhydramine, & nystatin 1:1:1 (MAGIC MOUTHWASH) suspension Swish and swallow 15 mL every 4 (four) hours as needed (mouth sores) 300 mL 1 Active Additional Information Patient not taking.Reported on 08/27/[address] (PROTONIX) 40 mg EC tabletIndications :Treatment of Non-Bleeding Gastric Disorder Take 1 tablet (40 mg total) by mouth supervisor mirror fabrication before breakfast Active multivitamin tabletIndications :Vitamin Deficiency Prevention Take 1 tablet by mouth supervisor mirror fabrication before breakfast Active ondansetron ODT (ZOFRAN-ODT) 8 mg disintegrating tabletIndications :n/v Take 1 tablet (8 mg total) by mouth every 12 (twelve) hours as needed for nausea or vomiting 20 tablet 1 Active meloxicam (MOBIC) 7.5 mg tabletIndications :pain TAKE 1 TABLET (7.5 MG TOTAL) BY MOUTH ANTENNA RIGGER BEFORE BREAKFAST 30 tablet Active cyanocobalamin (vitamin B-12) 1,000 mcg tablet Take 6 tablets (6,000 mcg total) by mouth 025 Active simethicone (GAS-X) 125 mg capsule Take by mouth Active dicyclomine (BENTYL) 10 mg capsule TAKE 1 CAPSULE BY MOUTH TWICE A DAY NEEDED FOR ABDOMINAL PAIN Active Gas-X Extra Strength 125 mg capsule TAKE 1 SOFTGEL BY MOUTH DAILY NEEDED FOR GAS Active sulfamethoxazole- trimethoprim (BACTRIM) 800-160 mg per tablet TAKE 1 TABLET BY MOUTH EVERY 12 HOURS FOR 5 DAYS Active nitroglycerin (NITROSTAT) 0.[address] 0.4 mg under the tongue every 5 (five) minutes as needed 019 2019 Discontinued(D iscontinued by another clinician) meloxicam (MOBIC) 7.5 mg tabletIndications :pain Take 1 tablet (7.5 mg total) by mouth supervisor mirror fabrication before breakfast 30 tablet 025 2024 Discontinued Active Problems Problem Noted Date Diagnosed [...] - Keep follow-up appointments with IR and CLINIC OFFICE MANAGER as directed. - Discussed with patient the [...] (04/18/2020): Added automatically from request for surgery [id number] Heart burn 07/03/2019 04/18/2020 Overview (07/03/2019): Added automatically from request for surgery [id number] Malignant neoplasm of overla pping sites of right female breast 05/16/2019 04/18/2020 Former smoker 07/18/2012 04/18/2020 Overview (12/24/2017): Description: 03/19/14 Gastroesophageal reflux disease 07/18/2012 07/26/2025 Hyperlipidemia 07/18/2020 Encounters Date Type Department Care Team Description 08/27/2025 1:00 PM SPLIT LEATHER DEPARTMENT SUPERVISOR Office Visit [facility] Radiation Oncology [address] [facility] [place] [address] Elisabeth Mann MD PhD Cancer of peritoneum (HCC) (Primary Dx) 08/27/2025 6:40 AM SPLIT LEATHER DEPARTMENT SUPERVISOR - 08/27/2025 11:59 PM SPLIT LEATHER DEPARTMENT SUPERVISOR Hospital Encounter [facility] [address] [place] [address] Discharge Disposition: Discharge to home or self care 08/27/2025 6:39 AM SPLIT LEATHER DEPARTMENT SUPERVISOR - 08/27/2025 11:59 PM SPLIT LEATHER DEPARTMENT SUPERVISOR Hospital Encounter [facility] Radiology [place] [facility] ([facility]) [address] [place] [address] Cancer of peritoneum (HCC); Malignant carcinoid tumors of other sites Discharge Disposition: Discharge to home or self care 08/27/2025 Telephone [facility] Gynecologic On[facility] [place] [facility] ([facility]) [address] [place] [address] Zenaida Krueger, DEMARCO 08/17/2025 Telephone [facility] Nutrition Counseling [address] [place] [id number] Susan Garcia [address] 08/07/2025 Orders Only [facility] Obstetrics and Gynecology [address] [place] [address] [address]th [place] [address] [place] [phone] Wendy Pelaez RN 08/02/2025 Orders Only [facility] Radiation Oncology [address] [facility] [place] [address] Elisabeth Mann MD PhD Cancer of peritoneum (HCC) (Primary Dx); Malignant carcinoid tumors of other sites 08/02/2025 Telephone [facility] Nutrition Counseling [address] [place] [address] [address] 07/26/2025 4:30 PM SPLIT LEATHER DEPARTMENT SUPERVISOR Clinical Support [facility] Gynecologic Oncology [facility] ([facility]) [address] [place] [address] Cancer of peritoneum (HCC) (Primary Dx) 07/26/2025 3:15 PM SPLIT LEATHER DEPARTMENT SUPERVISOR Office Visit [facility] Obstetrics and Gynecology [address] [facility] 13th [place] [phone] Belem Menchaca MD Cancer of peritoneum (HCC) (Primary Dx); BRCA1 positive 07/26/2025 Orders Only [place] [facility] Gynecologic Oncology [place] [facility] ([facility]) [address] [place] [address] Zenaida Krueger RN Cancer of peritoneum (HCC) (Primary Dx); Irritable bowel syndrome, unspecified type; Nausea and vomiting, unspecified vomiting type; Flatulence; Gastroesophageal reflux disease, unspecified whether esophagitis present 07/26/2025 Orders Only [facility] Obstetrics and Gynecology [address] [facility] 13th [place] [address] [place] [address] Wendy Pelaez RN 07/26/2025 Orders Only [facility] Obstetrics and Gynecology [address] [facility] 13th [place] [address] [place] [address] Wendy Pelaez RN Port-A-Cath in place (Primary Dx) 07/26/2025 Orders Only [facility] Obstetrics and Gynecology [address] [facility] 13th [place] [address] [place] [address] Wendy Pelaez RN Cancer of peritoneum (HCC) (Primary Dx) 07/23/2025 3:45 PM SPLIT LEATHER DEPARTMENT SUPERVISOR Lab [facility] Advanced [facility] ([facility]) [address] [place] [address] Cancer of peritoneum (HCC); Malignant neoplasm of ovary, unspecified laterality (HCC) 07/17/2025 Telephone [facility] Nutrition Counseling [address] [place] [address] Daniela Mclean, MICKEY 07/12/2025 Telephone [facility] Nutrition Counseling [address] [place] [address] Jeanie Schmitt, MICKEY 07/04/2025 8:30 AM CDT - 07/04/2025 9:36 AM CDT Surgery [facility] Operating Room [address] [place] [address] Breanna Ac MD CYSTOSCOPY 07/04/2025 8:27 AM CDT Anesthesia Event [facility] Operating Room [address] [place] [address] Timo La MD Botkin, Amanda Marie, NP 07/04/2025 5:51 AM CDT - 07/04/2025 10:19 AM CDT Hospital Encounter [facility] Operating Room [address] [place] [address] Breanna Ac MD Other hydronephrosis (Primary Dx); Moderate episode of recurrent major depressive disorder (HCC) Discharge Disposition: Discharge to home or self care 07/04/2025 Telephone [facility] ([facility]) - [facility] Urology [address] [place] [address] 11th [place] [phone] Breanna Ac MD 07/02/2025 9:45 AM CDT Lab [facility] ([facility]) [address] [place] [phone] Retention of urine 06/15/2025 Telephone [facility] Nutrition Counseling [address] [place] [phone] Jeanie Schmitt, MICKEY 06/13/2025 Orders Only [facility] ([facility]) - [facility] Urology [address] [place] [address] 11th [place] [address] [place] [phone] Breanna Ac MD Retention of urine (Primary Dx) from Last 3 Months Immunizations Immunization Administration [...] Former Cigarettes 0.5 19 1 973 - 1992 Passive Smoke Exposure: Past Smokeless Tobacco: Never Alcohol Use Standard Drinks/Week Comments Yes 0 (1 standard drink = 0.6 oz pur e alcohol) rarely [facility] Utilities Answer Date Recorded In the past 12 months has [employer], gas, oil, or water company threatened to [...] often do you attend chur ch or baptist services? 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 Not on file Not on file Not [...] Comments Blood Pressure 97/61 07/26/2025 3:20 PM SPLIT LEATHER DEPARTMENT SUPERVISOR Pulse 126 07/26/2025 3:20 PM SPLIT LEATHER DEPARTMENT SUPERVISOR Temperature 36.7 C (98 F) 07/26/2025 3:20 PM SPLIT LEATHER DEPARTMENT SUPERVISOR Respiratory Rate 24 07/26/2025 3:20 PM SPLIT LEATHER DEPARTMENT SUPERVISOR Oxygen Saturation 98% 07/26/2025 3:20 PM SPLIT LEATHER DEPARTMENT SUPERVISOR Inhaled Oxygen Concentration - - Weight 50.1 kg (110 lb 6.4 oz) 08/27/2025 1:13 P M SPLIT LEATHER DEPARTMENT SUPERVISOR Height 170.2 cm (5' 7) 08/27/2025 1:13 PM SPLIT LEATHER DEPARTMENT SUPERVISOR Body Mass Index 17.29 08/27/2025 1:13 PM SPLIT LEATHER DEPARTMENT SUPERVISOR Plan of Treatment Health Maintenance Due Date Last Done Comments Colon Cancer Screening-Colonoscopy 1955 Depression Screening 1955 Hepatitis B Screening 02/06/1974 Well Visit 65+ 02/06/2021 Osteoporosis Screening-Bone Density Scan 04/30/2024 04/30/2022 Covid-19 Vaccine (5 - 2024-2 6 season) 2025 09/15/2022, 01/05/2022, 01/28/2021, [...] Completed 01/08/2025 Medical Devices Implanted Type Area Er Medical Technician Device Identifier Shelf Expiration Date Model / Serial / Lot [employer] Stent Ureteral Double Pigtail Tria [id number] Ptfe [id number] - [id number] - [id number] Implanted:Qty: 1 on 07/04/2025 by Breanna Ac MD at [facility] Stent Right: Ureter [employer] Kim [id number] 12/21/2027 [id number] 20 / [id number] 20 / [id number] [employer] [id number] Xcela 8fr 1.6mm 1 Lumen Low Profile Power Injectable Fill Suture - [id number] Implanted:Qty: 1 on 06/05/2020 at [facility] [employer] 02/17/2025 [id number] / / [id number] Explanted Type Area Er Medical Technician Device Identifier Shelf Expiration Date Model / Serial / Lot [employer] Stent Ureteral Set Double Pigtail Radiopaque Tip Universa [id number] Hydrophilic Coated [id number] - [id number] Implanted:Qty: 1 on 01/06/2025 by Breanna Ac MD at [facility] Explanted:Qty: 1 on 07/04/2025 by Breanna Ac MD at [facility] Stent Right: Ureter [employer] 10/17/2027 [id number] / / [id number] Description:Intact and compl ete Procedures Procedure Name Priority Date/Time Associated Diagnosis Comments PET/CT FDG SKULL TO THIGH Schedule Routine, Read Routine (OP Routine) 08/27/2025 8:55 AM SPLIT LEATHER DEPARTMENT SUPERVISOR Cancer of peritoneum (HCC) Malignant carcinoid tumors of other sites EGFR STAT 07/23/2025 2:08 PM SPLIT LEATHER DEPARTMENT SUPERVISOR Cancer of peritoneum (HCC) Malignant neoplasm of ovary, unspecified laterality (HCC) DIFFERENTIAL AUTO STAT 07/23/2025 2:0 8 PM SPLIT LEATHER DEPARTMENT SUPERVISOR Cancer of peritoneum (HCC) Malignant neoplasm of ovary, unspecified laterality (HCC) CA 125 STAT 07/23/2025 2:08 PM SPLIT LEATHER DEPARTMENT SUPERVISOR Cancer of peritoneum (HCC) Malignant neoplasm of ovary, unspecified laterality (HCC) CBC WITH AUTO DIFFERENTIAL STAT 07/23/2025 2:08 PM SPLIT LEATHER DEPARTMENT SUPERVISOR Cancer of peritoneum (HCC) Malignant neoplasm of ovary, unspecified laterality (HCC) COMPREHENSIVE METABOLIC PANEL STAT 07/23/2025 2:08 PM SPLIT LEATHER DEPARTMENT SUPERVISOR Cancer of peritoneum (HCC) Malignant neoplasm of ovary, unspecified laterality (HCC) FL FLUOROSCOPY < 1 HOUR IP Routine 07/04/2025 9:03 AM CDT LA AN PROCEDURE PLACEHOLDER Routine 07/04/2025 9:00 AM CDT LA AN ELECTIVE SUPRAGLOTTIC AIRWAY Routine 07/04/2025 9:00 AM CDT URINE CULTURE STAT 07/04/2025 8:58 AM CDT EXCHANGE STENT - URETERAL 07/04/2025 8:29 AM CDT Hydronephrosis of right kidney PYELOGRAM - RETROGRADE 07/04/2025 8:29 AM CDT Hydronephrosis of right kidney CYSTOSCOPY 07/04/2025 8:29 AM CDT Hydronephrosis of right kidney URINE CULTURE Routine 07/02/2025 10:05 AM CDT Retention of urine SCREENING MAMMOGRAM LEFT W PARDEEP UNILATERAL ONLY Schedule Routine, Read Routine (OP Routine) 05/16/2025 11:30 AM CDT History of breast cancer History of mastectomy, right Encounter for screening mammogram for malignant neoplasm of breast HEPATITIS C ANTIBODY STAT 01/08/2025 12:43 PM CDT from Last 3 Months or Most Recently Relevant to Health Maintenance Results * PET/CT FDG Skull to Thigh (08/27/2025 8:55 AM SPLIT LEATHER DEPARTMENT SUPERVISOR) Anatomical Region Laterality Modality N/A Positron Emissio n Tomography (PET) 08/27/2025 10:4 2 AM SPLIT LEATHER DEPARTMENT SUPERVISOR Impressions 08/27/2025 11:48 AM SPLIT LEATHER DEPARTMENT SUPERVISOR 1. New and increasing size of FDG-avidity of multiple markedly hypermetabolic retroperitoneal and mesenteric lymph nodes in keeping with disease progression. 2. Healing of the left anterior acetabulum and left inferior pubic ramus. 3. Mild linear FDG uptake in the sacrum with linear sclerosis may represent sequelae of sacral insufficiency fracture. 4. Diffuse hypermetabolism within the esophagus, which can be seen in the setting of esophagitis. Dictated by: Faheem Gill MD, PHD The radiology attending physician has personally reviewed this study, and had reviewed and/or edited this written report and agrees with it. Electronically signed by: Fiona Hernandez M.D. Narrative 08/27/2025 11:48 AM SPLIT LEATHER DEPARTMENT SUPERVISOR EXAMINATION: TUMOR FDG-PET/CT IMAGING DATE OF STUDY: 08/27/2025 SCANNER: [facility] PET [employer] (NV1). This is a high-resolution scanner, which can result in higher SUVs (and even detection of previously unrecognized small lesions) compared to older scanners. RADIOPHARMACEUTICAL: 11.42 mCi F-18 Fluorodeoxyglucose (FDG) i.v. 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 The patient had hydronephrosis of the right kidney requiring a ureteral stent. The patient had symptoms limiting the course of systemic chemotherapy. SBRT was completed for the right pelvic mass in May 2025. The study is requested for restaging of documented recurrent disease . Subsequent treatment strategy. TECHNIQUE: The patient's fasting blood glucose level, measured by glucometer before injection of FDG, was 83 mg/dL. After intravenous administration of FDG, noncontrast CT images were obtained for attenuation correction and for fusion with emission PET images to allow for anatomical localization of PET findings. Emission PET images were then obtained. The study was interpreted on the [employer] workstation. The mean liver SUV (reported for quality nurse purposes) is 2.3. The total scanned area was skull base to proximal thighs. Images of the body were obtained starting 58 minutes after injection of tracer. All reported SUVs are maximum SUVs, unless otherwise specified. COMPARISON: Comparison is made with prior PET/CT dated 05/04/2025 DESCRIPTORS OF LESION FDG AVIDITY: Minimal: <= blood pool Mild: > blood pool and <= liver Moderate: > liver and <= 2x SUVmax liver Moderate to marked: >2x SUVmax liver and <= 3x SUVmax liver Marked: > 3x SUVmax liver FINDINGS: Interval increase in size of a 1.1 x 0.7 cm left retrocrural lymph node on image 134 with SUV 8.4, not present on the prior study. New and interval increase in size and FDG avidity of multiple additional lymph nodes in the abdomen. A 1.6 x 1.7 cm aortocaval lymph node on image 180 demonstrates SUV 12.3 and was not present on the prior study. Uptake associated with the left lateral 11th rib without a definite soft tissue component may be traumatic. The previously described left external iliac peritoneal deposit is substantially less FDG-avid than in the prior study, likely representing a treatment response. The most FDG-avid lesion is the aortocaval lymph node, which has a maximum SUV of 12.3 and approximate axial dimensions of 1.6 x 1.7 cm. There is moderate hypermetabolism uptake within the esophagus, which can be seen in the setting of esophagitis. Interval decrease in the conspicuity of FDG uptake in the left anterior acetabulum and left inferior pubic ramus corresponding to healing fractures. Mild linear FDG uptake in the sacrum with linear sclerosis may represent sequelae of sacral insufficiency fracture. Additional CT findings: Diffuse cerebral atrophy. Right chest port catheter tip terminates in the superior vena cava. Right breast implant in place. Small volume pericardial fluid. Proximal duodenal diverticulum postprocedural changes of cholecystectomy. Right ureteral stent in place. Postprocedural changes of sigmoid resection and reanastomosis. Status post hysterectomy. Healing left inferior pubic ramus and acetabular fractures. Degenerative changes of the spine. Postprocedural changes of right axillary lymph node dissection. Bilateral apical pleural parenchymal scarring. Procedure Note Fiona Hernandez MD - 08/27/2025 EXAMINATION: TUMOR FDG-PET/CT IMAGING DATE OF STUDY: 08/27/2025 SCANNER: [facility] [employer] (NV1). This is a high-resolution scanner, which can result in higher SUVs (and even detection of previously unrecognized small lesions) compared to older scanners. RADIOPHARMACEUTICAL: 11.42 mCi F-18 Fluorodeoxyglucose (FDG) i.v. 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 The patient had hydronephrosis of the right kidney requiring a ureteral stent. The patient had symptoms limiting the course of systemic chemotherapy. SBRT was completed for the right pelvic mass in May 2025. The study is requested for restaging of documented recurrent disease . Subsequent treatment strategy. TECHNIQUE: The patient's fasting blood glucose level, measured by glucometer before injection of FDG, was 83 mg/dL. After intravenous administration of FDG, noncontrast CT images were obtained for attenuation correction and for fusion with emission PET images to allow for anatomical localization of PET findings. Emission PET images were then obtained. The study was interpreted on the [employer] workstation. The mean liver SUV (reported for quality nurse purposes) is 2.3. The total scanned area was skull base to proximal thighs. Images of the body were obtained starting 58 minutes after injection of tracer. All reported SUVs are maximum SUVs, unless otherwise specified. COMPARISON: Comparison is made with prior PET/CT dated 05/04/2025 DESCRIPTORS OF LESION FDG AVIDITY: Minimal: <= blood pool Mild: > blood pool and <= liver Moderate: > liver and <= 2x SUVmax liver Moderate to marked: >2x SUVmax liver and <= 3x SUVmax liver Marked: > 3x SUVmax liver FINDINGS: Interval increase in size of a 1.1 x 0.7 cm left retrocrural lymph node on image 134 with SUV 8.4, not present on the prior study. New and interval increase in size and FDG avidity of multiple additional lymph nodes in the abdomen. A 1.6 x 1.7 cm aortocaval lymph node on image 180 demonstrates SUV 12.3 and was not present on the prior study. Uptake associated with the left lateral 11th rib without a definite soft tissue component may be traumatic. The previously described left external iliac peritoneal deposit is substantially less FDG-avid than in the prior study, likely representing a treatment response. The most FDG-avid lesion is the aortocaval lymph node, which has a maximum SUV of 12.3 and approximate axial dimensions of 1.6 x 1.7 cm. There is moderate hypermetabolism uptake within the esophagus, which can be seen in the setting of esophagitis. Interval decrease in the conspicuity of FDG uptake in the left anterior acetabulum and left inferior pubic ramus corresponding to healing fractures. Mild linear FDG uptake in the sacrum with linear sclerosis may represent sequelae of sacral insufficiency fracture. Additional CT findings: Diffuse cerebral atrophy. Right chest port catheter tip terminates in the superior vena cava. Right breast implant in place. Small volume pericardial fluid. Proximal duodenal diverticulum postprocedural changes of cholecystectomy. Right ureteral stent in place. Postprocedural changes of sigmoid resection and reanastomosis. Status post hysterectomy. Healing left inferior pubic ramus and acetabular fractures. Degenerative changes of the spine. Postprocedural changes of right axillary lymph node dissection. Bilateral apical pleural parenchymal scarring. IMPRESSION: 1. New and increasing size of FDG-avidity of multiple markedly hypermetabolic retroperitoneal and mesenteric lymph nodes in keeping with disease progression. 2. Healing of the left anterior acetabulum and left inferior pubic ramus. 3. Mild linear FDG uptake in the sacrum with linear sclerosis may represent sequelae of sacral insufficiency fracture. 4. Diffuse hypermetabolism within the esophagus, which can be seen in the setting of esophagitis. Dictated by: Faheem Gill MD, PHD The radiology attending physician has personally reviewed this study, and had reviewed and/or edited this written report and agrees with it. Electronically signed by: Fiona Hernandez M.D. us Elisabeth Mann MD PhD IMG PET PROCEDURES Final Result * (ABNORMAL) eGFR (07/23/2025 2:08 PM SPLIT LEATHER DEPARTMENT SUPERVISOR) eGFR 46(L) >=60 mL/min/1. 73 m2 Comment: [...] last reviewed 2021. Blood 07/23/2025 2:08 PM SPLIT LEATHER DEPARTMENT SUPERVISOR 07/23/2025 2:33 PM SPLIT LEATHER DEPARTMENT SUPERVISOR us Belem Menchaca MD LAB BLOOD ORDERABLES Marbella l Result [facility] Department [place] [address] * Differential, auto (07/23/2025 2:08 PM SPLIT LEATHER DEPARTMENT SUPERVISOR) Neutrophil abs 3.55 1.50 - 6.50 K/cumm Imm gran abs 0.02 0.00 - 0.10 K/cumm [facility] Lymphocyte abs 0.96 0.80 - 3.30 K/cumm [facility] Monocyte abs 0.54 0.20 - 0.80 K/cumm [facility] Eosinophil abs 0.18 0.00 - 0.50 K/cumm [facility] Basophil abs 0.03 0.00 - 0.10 K/cumm [facility] Neutrophil pct 67.2 % [facility] Comment: Interpretive Data Percent cell count reference ranges are not reported, since discordance with absolute values may lead to misinterpretation of CBC data. Current Interpretive Data was last revised on 2017. Imm gran pct 0.4 % [facility] Comment: Interpretive Data Percent cell count reference ranges are not reported, since discordance with absolute values may lead to misinterpretation of CBC data. Current Interpretive Data was last revised on 2017. Lymphocyte pct 18.2 % [facility] Comment: Interpretive Data Percent cell count reference ranges are not reported, since discordance with absolute values may lead to misinterpretation of CBC data. Current Interpretive Data was last revised on 2017. Monocyte pct 10.2 % [facility] Comment: Interpretive Data Percent cell count reference ranges are not reported, since discordance with absolute values may lead to misinterpretation of CBC data. Current Interpretive Data was last revised on 2017. Eosinophil pct 3.4 % [facility] Comment: Interpretive Data Percent cell count reference ranges are not reported, since discordance with absolute values may lead to misinterpretation of CBC data. Current Interpretive Data was last revised on 2017. Basophil pct 0.6 % [facility] Comment: Interpretive Data Percent cell count reference ranges are not reported, since discordance with absolute values may lead to misinterpretation of CBC data. Current Interpretive Data was last revised on 2017. Blood 07/23/2025 2:08 PM SPLIT LEATHER DEPARTMENT SUPERVISOR 07/23/2025 2:25 PM SPLIT LEATHER DEPARTMENT SUPERVISOR us Belem Menchaca MD LAB BLOOD ORDERABLES Marbella jeong Result [facility] Department [place] [address] * (ABNORMAL) CBC with auto differential (07/23/2025 2:08 PM SPLIT LEATHER DEPARTMENT SUPERVISOR) [facility] WBC 5.28 3.80 - 9.90 K/cumm Hgb 9.7(L) 11.9 - 15.5 g/dL [facility] Hct 30.2(L) 35.6 - 45.5 % [facility] Plt 224 150 - 400 K/cumm [facility] MPV 10.7 9.1 - 12.3 fL [facility] RBC 2.84(L) 3.90 - 5.20 M/cumm [facility] MCV 106.3(H) 81.3 - 96.4 fL [facility] MCH 34.2(H) 27.1 - 33.3 pg [facility] MCHC 32.1(L) 32.3 - 35.7 g/dL [facility] RDW CV 13.2 11.1 - 14.9 % [facility] RDW SD 51.8(H) 35.7 - 48.1 fL [facility] NRBC abs 0.00 0.00 - 0.01 K/cumm [facility] Blood 07/23/2025 2:08 PM SPLIT LEATHER DEPARTMENT SUPERVISOR 07/23/2025 2:25 PM SPLIT LEATHER DEPARTMENT SUPERVISOR Belem Menchaca MD LAB BLOOD ORDERABLES Marbella l Result Performing Organization Address [facility]/State/ZIP Co de Phone Number [facility] Department [place] [address] * [place] 125 (07/23/2025 2:08 PM SPLIT LEATHER DEPARTMENT SUPERVISOR) [facility] [place] 125 ag 18.6 0.0 - 38.1 units/mL Comment: Interpretive Data The [employer] [place] 125 assay procedure was used. Results from different manufacturers or methods may not be comparable. Serial testing should be performed using the same method. Blood 07/23/2025 2:08 PM SPLIT LEATHER DEPARTMENT SUPERVISOR 07/23/2025 2:25 PM SPLIT LEATHER DEPARTMENT SUPERVISOR Belem Menchaca MD LAB BLOOD ORDERABLES Marbella l Result [facility] Department [place] [address] * (ABNORMAL) Comprehensive metabolic panel (07/23/2025 2:08 PM SPLIT LEATHER DEPARTMENT SUPERVISOR) Sodium 138 135 - 145 mmol/L Potassium, pl 4.7 3.3 - 4.9 mmol/L [facility] Chloride 108 97 - 110 mmol/L [facility] CO2 20(L) 22 - 32 mmol/L [facility] Anion gap 10 2 - 15 mmol/L [facility] BUN 10 6 - 25 mg/dL [facility] Creatinine 1.26(H) 0.60 - 1.10 mg/dL [facility] Glucose 101 70 - 199 mg/dL [facility] Comment: Interpretive Data Fasting glucose [...] Calcium 9.2 8.5 - 10.3 mg/dL [facility] Bilirubin, total 0.3 0.1 - 1.2 mg/dL [facility] Protein, pl 6.5 6.5 - 8.5 g/dL [facility] Albumin 3.3(L) 3.5 - 5.0 g/dL [facility] Alk phos 126 40 - 130 Units/L [facility] ALT 13 7 - 45 Units/L [facility] AST 26 10 - 45 Units/L [facility] Blood 07/23/2025 2:08 PM SPLIT LEATHER DEPARTMENT SUPERVISOR 07/23/2025 2:25 PM SPLIT LEATHER DEPARTMENT SUPERVISOR us Belem Menchaca MD LAB BLOOD ORDERABLES Marbella l Result [facility] Department [place] [address] * [place] Fluoroscopy < 1 Hour (07/04/2025 9:03 AM CDT) Narrative [facility] - 07/04/2025 9:03 AM CDT The images from this study are not interpreted by Radiology. Please refer to the physician's procedure / OR operative note. us Breanna Ac MD IMG FLUOROSCOPY PROCEDURES Final Result Performing Organization Address [facility] Co de Phone Number [email or web address] * LA AN ELECTIVE SUPRAGLOTTIC AIRWAY, LA AN PROCEDURE PLACEHOLDER (07/04/2025 9:00 AM CDT) Narrative Aissatou Osorio CRNA - 07/04/2025 9:00 AM CDT Aissatou Osorio CRNA 07/04/2025 9:01 AM Airway Patient location: OR Urgency: elective Date/time: 07/04/2025 9:00 AM Indications for airway management: anesthesia Difficult airway: no Staff: Supervising provider: Timo La MD Placed by: CASING BLOWER: Aissatou Osorio CRNA Emergent airway documentation: Risks and benefits discussed: yes Consent obtained: yes Consent given by: patient Airway prep: Preoxygenated: yes Mask difficulty assessment: 1 - vent by mask Spontaneous ventilation during airway: absent Sedation level during airway: GA Final airway details: Final airway type: supraglottic airway Final supraglottic airway: classic SGA size: 3 Number of attempts: 1 Timo La MD ANESTHESIA ORDERABLES Final Result * (ABNORMAL) Urine culture Urine, bladder (07/04/2025 8:58 AM CDT) Report Final Report: Greater than or equal to 100,000 colonies/mL of Enterococcus faecalis For susceptibility results, refer to accession number [id number] on the urine culture from 07/02/2025 * * * * * * * * * * * * * * * * * * * * Greater than or equal to 100,000 colonies/mL of Enterococcus faecalis #2 For susceptibility results, refer to accession number [id number] on the urine culture from 07/02/2025 * * * * * * * * * * * * * * * * * * * * Plus growth of clinically insignificant bacterial helena. (.) Organism ENTEROCOCCUS FAECALIS [facility] Organism ENTEROCOCCUS FAECALIS JYOTI [facility] Organism PLUS GROWTH OF CLINICALLY INSIGNIFICANT HELENA. JYOTI [facility] Urine, bladder 07/04/2025 8: 58 AM CDT 07/04/2025 12:09 PM CDT Narrative JYOTI ZUNIGA - 07/06/2025 6:25 AM CDT Bladder urine for culture Indications for Culture:->Urology patient Testing performed by [facility] Microbiology Laboratory ([phone]) Breanna Ac MD LAB MICROBIOLOGY - GENERAL ORDER BRYCE Final Result JYOTI [facility] Department [place] [address] * (ABNORMAL) Urine culture Urine, clean voided [...] Organism PLUS GROWTH OF CLINICALLY INSIGNIFICANT HELENA. [facility] Organism ENTEROCOCCUS FAECALIS ROSIOPATRICIA [facility] Organism ENTEROCOCCUS FAECALIS [facility] Urine, clean voided 07/02/2025 10:05 AM CDT 07/02/2025 11:18 AM CDT Narrative JYOTI ZUNIGA - 07/06/2025 12:31 PM CDT Testing performed by [facility]biology Laboratory ([phone]) Organism Antibiotic Method Susceptibility Enterococcus faecalis Ampicillin [...] - GENERAL ORDER BRYCE Final Result [facility] Department [place] [address] * Screening Mammogram Left W Pardeep Unilateral [...] MICROBIOLOGY - GENERAL OR DERABLES Final Result [facility] Department [place] [address] from Last 3 Months or Most Recently Relevant to Health Maintenance Additional Health Concerns Infection Onset Date Last Indicated VRE 03/31/2025 03/31/2025 Insurance [facility] MEDICARE [employer]IG[employer] Logic [facility] AETNA SIG [id number] [facility] MEDICARE [facility] MEDICARE [facility] SECONDARY Advance Directives For more information, please contact: [phone] * Full Code (Latest Code Status on [...] 11:27 AM 06/12/2020 5:37 PM Care Teams Physician/Internist Relationship Specialty [place] [address] [address] [address] PCP - General Nurse Practitioner 01/05/25 Suhail Marie MD [address] [place] [address] Internal Medicine 07/28/23 Robin Pimentel MD [address] [place] [address] Internal Medicine 07/28/23
--- OUTSIDE RECORDS SUMMARY | 2025-09-08 15:53 | XMS_ITS | Clinical Summary ---
Author Organization [facility] Address [address], [facility] [address] [place] [address] Phone Care Team Providers Care Teaching Assistant Name Role Phone Laurita German Primary Care Provider [phone] Social History Tobacco Use Types Packs/Day Years Used Date Smoking Tobacco: Never Assessed Comments Unknown Sex and Gender Information Value Date Recorded Sex Assigned at Not on file Legal Sex Female 8:17 AM CDT Gender Identity Not on file Sexual Orientation Not on file Plan of Treatment Not on file Insurance [employer] Care Teams Teaching Assistant Relationship Specialty Start Date End Date Laurita German, FLACO PCP - General Physician Information Systems Architect 04/03/20
--- OUTSIDE RECORDS SUMMARY | 2025-09-08 15:53 | XMS_ITS | Encounter Summary ---
Author Organization [facility] Healthcare Address [address] [place] [address] Care Team Providers Care Contract Technical Writer Name Role Phone Laurita German Primary Care Provider [phone] Unknown, Notinfile Unavailable Unavailable Suhail Marie MD Unavailable [phone]- [phone] Robin Pimentel MD Unavailable [phone] Tsering Hoff Primary Care Provider [phone] Ceci Garcia SOLE TRIMMER Primary Care Provide r Encounter Details Date Type Department Care Team (Late st Contact Info) Description 06/10/2020 Telephone [facility] Radiology [address] [address] Joselin Garza RN Social History Tobacco Use [...] on file Legal Sex Female 4:24 AM FURNITURE DESIGNER Gender Identity Not on file Sexual Orientation Not on file 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 difficile suspected 02/19/2025 02/19/202502/21 2:35 PM CDT Ring Surveillance: C. auris Comment:[id number] 02/20/2025 02/20/2025 02/27/2025 7:26 PM C DT C. difficile suspected 03/31/2025 03/31/202503/31 7:21 PM CDT VRE 03/31/2025 03/31/2025 documented as of this encounter Care Teams Contract Technical Writer Relationship Specialty Start Date End Date Laurita German PA PCP - General 04/18/20 04/19/24 [place] [address] [employer] [address] [address] PCP - General Physician Dental Ceramist Assistant 04/20/24 01/04/25 [place] [address] [address] PCP - General Nurse Practitioner 01/05/25 Unknown, Notinfile Referring Physician 10/17/20 07/27/23 Suhail Marie MD [address] [place] [address] Internal Medicine 07/28/23 Robin Pimentel MD [address] [place] [address] Internal Medicine 07/28/23 documented as of this encounter
--- OUTSIDE RECORDS SUMMARY | 2025-09-08 15:53 | XMS_ITS ---
Author Organization [facility] Address [address] [place] [address] Care Team Providers Care Water Resource Engineering Specialist Name Role Phone Suhail Marie MD Unavailable [phone] Robin Pimentel MD Unavailable Ceci Garcia NP Primary Care Provide r [...] CARBOplatin / Bevacizumab 21 Day Cycles - MANAGER DATA WAREHOUSE (Cycle 1 Gemcitibine D1, 8/Carbo D1, 8/Dorina [...] (using 38 mg/ml gemcitabine) (J9201) bevacizumab-awwb (MVASI) 800 mg in sodium chloride 0.9% 100 mL IVPBCARBOplatin (PARAPLATIN) 257 mg in sodium chloride 0.9% 250 mL IVPB (BY AUC GOG) bevacizumab-awwb (MVASI) 800 mg in sodium chloride 0.9% 100 mL [...] TABlets PO BID 28 Day Cycles - MANAGER DATA WAREHOUSE 4 02/08/2025 No medications scheduled. Progression Belem Menchaca MD Treatment not started DOXOrubicin Liposomal (DOXIL) / CARBOplatin 28 Day Cycles - MANAGER DATA WAREHOUSE (Carbo Locked) 3 09/23/2023 CARBOplatin (PARAPLATIN) IVPB in 250 mL (by AUC: GOG)LIPOSOMAL DOXOrubicin (DOXIL) IVPB in 250 mL Therapy Complete Belem Menchaca MD 6 of 6 cycles started PACLItaxel weekly / CARBOplatin weekly 21 Day Cycles - MANAGER DATA WAREHOUSE 06/27/20 20 11/14/2021 CARBOplatin (by AUC:GOG) (PARAPLATIN)CA [...] Fraction Dose Fractions Total Dose Plans Planned VA108/[id number] 06/06/2025 - 06/06/2025 700 1 700 VA108/[id number] 06/05/2025 - 06/05/2025 700 ,400 VA108/[id number] 06/04/2025 - 06/04/2025 700 1 / 2,100 VA108/[id number] 06/01/2025 - 06/01/2025 700 1 2,800 VA108/[id number] 05/31/2025 - 05/31/2025 700 3,500 Reference Points [...] with recurrence in 2021 Severe malnutrition 11/13/2021 07/07/20 22 Breast density 04/14/2021 07/26/2025 Left shoulder pain 02/05/2021 Shingles 10/17/2020 12/19/2020 Abscess 05/27/2020 05/27/2020 Peritonitis [...] - Keep follow-up appointments with IR and MANAGER DATA WAREHOUSE as directed. - Discussed with patient the [...] (04/18/2020): Added automatically from request for surgery [id number] Heart burn 07/03/2019 04/18/2020 Overview (07/03/2019): Added automatically from request for surgery [id number] Malignant neoplasm of overla pping sites of right female breast 05/16/2019 04/18/2020 Former smoker 07/18/2012 04/18/2020 Overview (12/24/2017): Description: 03/19/14 Gastroesophageal reflux disease 07/18/2012 07/26/2025 Hyperlipidemia 07/18/2020
--- OUTSIDE RECORDS SUMMARY | 2025-09-08 15:53 | XMS_ITS | Encounter Summary ---
Author Organization [facility] Address [address] [place] [address] Care Team Providers Care Director New Product Name Role Phone Cipriano Potts MD Unavailable [phone] Korin Meehan NP Primary Care Provider Laurita Bills Primary Care Provider [phone] Tsering Hoff-C Primary Care Provider [phone] Ceci Garcia NP Primary Care Provider [phone] Encounter Details Date Type Department Care Team (Late st Contact Info) Description 06/14/2019 Abstract [facility] at [address] [address] Eduardo Watson MA Social History Tobacco Use [...] st Contact Info) Description 09/19/2025 10:20 AM KEYPUNCH OPERATOR Office Visit [facility] Family & Internal Medicine [facility] [address] [place] [address] [place] [address] [facility] [address] [place] [address] documented as of this encounter Procedures Procedure [...] as of this encounter Care Teams Director New Product Relationship Specialty Start Date End Date Korin Meehan NP [address] [facility] [address] [place] [address] PCP - General NURSE PRACTITIONER 01/30/20 03/19/20 [place] [address] [place] [address] PCP - General PHYSICIAN SCRIPT READER 03/20/20 07/20/23 Tsering Hoff PA-C [address] [place] [address] PCP - General PHYSICIAN SCRIPT READER 07/21/23 11/26/24 [place] [address] [address] PCP - General Nurse Practitioner Family 11/27/24 Cipriano Potts MD [address] [facility] [address] [facility] [place] [address] [place] [employer] CARDIOVASCULAR DISEASE 05/10/19 documented as of this encounter
[2025-09-08] MEDS: dilTIAZem 100 MG/100 ML 100 MG/100 ML BAG IV CONT (16:20)
[2025-09-08] MEDS: LORazepam (*CRX) 1 MG TABLET PO (16:22)
[2025-09-08 16:28] LABS: Hematocrit 26.5 % (37.0-47.0); Hemoglobin 8.9 g/dL (12.0-15.0); Immature Granulocyte Percent A 0.3 % (0-0.5); Lymphocytes Absolute Auto 1.12 K/mm3 (0.9-3.2); Mean Corpuscular HGB Conc 33.6 g/dl (32-36); Mean Corpuscular Hemoglobin 34.5 pg (26-34); Mean Corpuscular Volume 102.7 fl (80-100); Nucleated Red Blood Cells Absolute Auto 0.000 K/mm3 (0.0-0.012); Nucleated Red Blood Cells Perc 0.0 % (0.0-0.2); Platelet Count Result 239 k/mm3 (150-375); Red Blood Count 2.58 M/mm3 (4.2-5.4); White Blood Count 6.9 K/mm3 (4.5-10.0)
[2025-09-08 16:40] LABS: INR 1.1; Partial Thromboplastin Time 28.4 Seconds (22.3-36.8); Prothrombin Time 14.2 Seconds (11.1-14.7)
[2025-09-08 16:43] LABS: Alanine Aminotransferase 17 U/L (6-35); Albumin Level 3.1 g/dL (3.5-5.1); Alkaline Phosphatase 135 U/L (38-126); Anion Gap 5 mmol/L (4-12); Aspartate Amino Transferase 31 U/L (14-36); Bilirubin,Total 0.5 mg/dL (0.2-1.3); Blood Urea Nitrogen 11 mg/dL (7-17); Calcium 8.3 mg/dL (8.4-10.2); Carbon Dioxide 28 mmol/L (22-30); Chloride 104 mmol/L (98-107); Estimated CRCL calculation 30 ml/min; Estimated Glomerular Filt Rate 45; Glucose 93 mg/dL (65-110); Potassium 3.2 mmol/L (3.4-5.0); Sodium 137 mmol/L (137-145); Total Protein 6.1 g/dL (6.3-8.2)
[2025-09-08 16:54] LABS: NT Pro B Type Natriuretic Pept 3080 pg/mL (19.9-100); Troponin I < 0.012 ng/mL (0.000-0.034)
--- NOTE | 2025-09-08 17:54 | ECG_ITS ---
Test Date: 2025-09-08 18:37:05 Measurements Intervals Gary Rate: 93 P: 55 MT: 152 QRS: 58 QRSD: 88 T: 61 QT: 377 QTc: 471 Interpretive Statements SINUS RHYTHM WITH OCCASIONAL VENTRICULAR PREMATURE COMPLEXES BASELINE ARTIFACT- I, II, III, AVR, AVL, AVF, V1-V6 BORDERLINE ECG Compared to ECG 09/08/2025 15:24:01 Atrial flutter no longer present Electronically Signed On 09-08-2025 21:46:18 FITTING SUPERVISOR by Mckay Felder D.O.
[2025-09-08] MEDS: POTASSIUM CHLORIDE 20 MEQ PACKET (FOR LIQUID) 40 MEQ PO (19:27)
--- NOTE | 2025-09-08 19:27 | WPCEDHO ---
ED Hand Off Checklist All vitals saved:yes IV Site documented:yes All med administrations documented:yes Triage Note Triage Note pt sent in by local , pt went 09/08/25 15:14 there for eval of tremors and dry heaves. pt says she was sent here cause she was pale and they could not get a good EKG reading Allergies coconut Allergy (Severe, Verified 09/08/25 15:20) Anaphylaxis Patient states her throat closes up adhesive tape Allergy (Unknown, Verified 09/08/25 15:20) Other celecoxib (From Celebrex) Adverse Reaction (Verified 09/08/25 15:20) Rash Family History (Last Reviewed 09/08/25 @ 16:05 by Falguni Perez MD) Mother Family history of malignant neoplasm of breast in first degree relative Father Family history of lung disease Daughter Breast cancer History of hysterectomy Active Medications including assessments/comments Diltiazem HCl (Cardizem 100 Mg/100 Ml) 100 mg in 100 mls @ 10 mls/hr IV CONT .Q10H STA; Protocol Stop: 09/09/25 01:48 Last Titration: 09/08/25 17:27 Dose: 10 mg/hr, 10 mls/hr Documented By: [facility] Infusion/Titration Document 09/08/25 17:27 [facility] (Rec: 09/08/25 17:27 [facility] [id number]) Intake Intake 2.8 Cumulative Intake ( 6.6 bag) Cumulative Intake ( 6.6 Rx) Container Volume 93.4 Waste Amount 0 Dosing Dose Rate 10 Infusion Rate 10 Cumulative Dose 6.6 Increase/Decrease Increased Elapsed Time Elapsed Time ( 1h 7m minutes) Diltiazem Infusion Assessment Document 09/08/25 17:27 [facility] (Rec: 09/08/25 17:27 [facility] [id number]) Infusion Action Diltiazem Infusion Titrated/Rate Changed Action Pulse Pulse Rate (60-100) 114 H Blood Pressure Blood Pressure (100/ 99/57 L 60-140/90) Blood Pressure Mean 71 Titration: 09/08/25 17:05 Dose: 7.5 mg/hr, 7.5 mls/hr Documented By: [facility] Infusion/Titration Document 09/08/25 17:05 [facility] (Rec: 09/08/25 17:06 [facility] [id number]) Intake IV Site Peripheral Access Left Antecubital Intake 3.8 Cumulative Intake ( 3.8 bag) Cumulative Intake ( 3.8 Rx) Container Volume 96.2 Waste Amount 0 Dosing Dose Rate 7.5 Infusion Rate 7.5 Cumulative Dose 3.8 Increase/Decrease Increased Elapsed Time Elapsed Time ( 45m minutes) Diltiazem Infusion Assessment Document 09/08/25 17:05 [facility] (Rec: 09/08/25 17:06 [facility] [id number]) Infusion Action Diltiazem Infusion Titrated/Rate Changed Action Pulse Pulse Rate (60-100) 113 H Blood Pressure Blood Pressure (100/ 98/59 L 60-140/90) Blood Pressure Mean 72 Admin: 09/08/25 16:20 Dose: 5 mg/hr, 5 mls/hr Documented By: CARRILLO Infusion/Titration Document 09/08/25 16:20 [facility] (Rec: 09/08/25 16:21 [facility] [id number]) Intake IV Site Peripheral Access Left Antecubital Container Volume 100 Waste Amount 0 Dosing Dose Rate 5 Infusion Rate 5 Increase/Decrease Started Elapsed Time Elapsed Time ( 0m minutes) Diltiazem Infusion Assessment Document 09/08/25 16:20 [facility] (Rec: 09/08/25 16:21 [facility] [id number]) Infusion Action Diltiazem Infusion Initiated Action Pulse Pulse Rate (60-100) 146 H Blood Pressure Blood Pressure (100/ 122/56 L 60-140/90) Blood Pressure Mean 78 Administered/Completed Medications Discontinued Medications Diltiazem HCl (Diltiazem Hcl Inj 25 Mg/5 Ml Vial) 10 mg IV PUSH ONCE STA Stop: 09/08/25 15:50 Last Admin: 09/08/25 16:22 Dose: 10 mg Documented By: [facility] Lorazepam (Lorazepam (*Crx) 1 Mg Tablet) 1 mg PO ONCE STA Stop: 09/08/25 15:50 Last Admin: 09/08/25 16:22 Dose: 1 mg Documented By: [facility] Potassium Chloride (Potassium Chloride 20 Meq Packet (For Liquid)) 40 meq PO ONCE STA Stop: 09/08/25 17:58 Last Admin: 09/08/25 19:27 Dose: 40 meq Documented By: [facility] Interventions/Assessments IV / Saline Lock, Insert Start: 09/08/25 15:14 Freq: Status: Active Protocol: Document 09/08/25 16:21 [facility] (Rec: 09/08/25 16:21 [facility] [id number]) IV Assessment Peripheral Access Left Antecubital IV Catheter Access Initiated IV Insertion Date 09/08/25 IV Insertion Time 16:21 Catheter Gauge 20 Ultrasound Used for Yes Placement IV Site Assessment WNL IV Care and WNL Maintenance Last Vital Signs Temperature 98.0 F 09/08/25 18:47 Pulse Rate 96 09/08/25 18:47 Respiratory Rate 14 09/08/25 18:47 Pulse Oximetry 98 09/08/25 18:47 Blood Pressure 92/73 L 09/08/25 18:47 Blood Pressure Mean 79 09/08/25 18:47 Oxygen Delivery Room Air 09/08/25 15:20 Weight 47.8 kg 09/08/25 15:20 Last Result - Abnormals Only RBC 2.58 M/mm3 (4.2-5.4) L 09/08/25 16:17 Hgb 8.9 g/dL (12.0-15.0) L 09/08/25 16:17 Hct 26.5 % (37.0-47.0) L 09/08/25 16:17 MCV 102.7 fl (80-100) H 09/08/25 16:17 MCH 34.5 pg (26-34) H 09/08/25 16:17 Lymph % (Auto) 16.3 % (18.3-44.2) L 09/08/25 16:17 Reagan % (Auto) 11.0 % (2.6-8.5) H 09/08/25 16:17 Reagan # (Auto) 0.8 K/mm3 (0.1-0.6) H 09/08/25 16:17 Potassium 3.2 mmol/L (3.4-5.0) L 09/08/25 16:17 Creatinine 1.18 mg/dL (0.7-1.0) H 09/08/25 16:17 Estimated GFR 45 (59-) L 09/08/25 16:17 Calcium 8.3 mg/dL (8.4-10.2) L 09/08/25 16:17 Alkaline Phosphatase 135 U/L (38-126) H 09/08/25 16:17 NT-Pro-B Natriuret Pep 3080 pg/mL (19.9-100) H 09/08/25 16:17 Total Protein 6.1 g/dL (6.3-8.2) L 09/08/25 16:17 Albumin 3.1 g/dL (3.5-5.1) L 09/08/25 16:17 Most Recent Suicide Severity Rating Suicide Severity Rating NO RISK INDICATED 09/08/25 15:14
[2025-09-08 19:41] LABS: Troponin I 0.014 ng/mL (0.000-0.034)
--- NOTE | 2025-09-08 20:00 | ADMGEN ---
This patient, Karis Kraus, was admitted to IMU Room 206-01. Patient/family oriented to hospital policies and general routines including ID bracelet, bed and alarms, visiting hours, pain management, procedures, bathroom and other care routines, personal items, smoking policy, room service/diet, and visiting hours. Information on how to activate the Rapid Response Team has been discussed. Patient/Family are encouraged to report perceived risks to care and to ask questions if they do not understand what they are told or what they should do.
--- NOTE | 2025-09-08 20:57 | PM.IMHP2 ---
H&P: HPI History of Present Illness Date/Time: 09/08/25 20:57 Chief Complaint: Dry heaves and shaking. Narrative: This is a 70-year-old female patient who has a history of metastatic ovarian cancer currently on radiation. The patient was seen at the [facility] urgent care and sent to the emergency room here. The patient felt short of breath and shaky. The patient denies any fever or chills. The patient stated that she is no longer receiving chemotherapy and she is on break from radiation. She stated that after the of the year she has decided to go through with radiation. Her last PET scan on August 27 showed spread of the cancer and the patient is aware. Her H&H is 8.9 and 26.5 which is improved from her baseline. Her potassium was found to be 3.2 in was supplemented in the emergency room. Her BUN is normal creatinine slightly elevated at 1.18. Her GFR is 45 which has improved from the last value of 40 on 08/15/2025. Calcium is low at 8.3. Troponins were negative. BNP 3080. She stated that she has diarrhea and her C diff was negative. The patient was negative for influenza a, influenza B, and COVID. Chest x-ray was read as no acute findings. Emphysematous lungs. Postoperative changes of right breast. EKG was atrial flutter/tachycardia with rapid ventricular rate. Repeat EKG shows her heart rate in the 90s with a sinus rhythm with occasional PVCs. The patient had been started on a Cardizem drip. The patient was also given lorazepam Tylenol and potassium in the emergency room. The patient is being admitted to observation status on the date of service of 09/08/2025. Review of Systems Constitutional: Constitutional: Reports as per HPI and Reports no additional constitutional complaints Eyes: Eyes: Reports as per HPI and Reports no additional eye complaints ENT: Reports system reviewed and no additional complaints, except as documented and Reports Normal hearing present Cardiovascular: Cardiovascular: Reports no additional cardiovascular complaints Respiratory: Respiratory: Reports as per HPI and Reports no additional respiratory complaints Gastrointestinal: Gastrointestinal: Reports as per HPI and Reports no additional gastrointestinal complaints Genitourinary: Genitourinary: Reports no additional female genitourinary complaints Musculoskeletal: Musculoskeletal: Reports no additional musculoskeletal complaints Integumentary/Breasts: Skin/Breast: Reports system reviewed and no additional complaints, except as docu Neurologic: Reports system reviewed and no additional complaints, except as documented and Reports Normal hearing present Psychiatric: Psychiatric: Reports no additional psychiatric complaints and Reports as per HPI Hematologic/Lymphatic: Hematologic/Lymphatic: Reports no additional hematologic/lymphatic complaints Allergic/Immunologic: Allergic/Immunologic: Reports no additional allergic/immunologic complaints [facility] Past Medical History Medical History (Updated 09/09/25 @ 01:30 by Elisabeth Carvajal APRN) Anemia Urinary retention Urinary tract infection 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 Nausea and vomiting in adult Hydronephrosis Chronic kidney disease, stage 3 Gastroesophageal reflux disease Breast cancer Right breast Depression Anxiety Irritable bowel syndrome Chronic anemia Peripheral neuropathy due to chemotherapy Osteoporosis Ovarian cancer Approximately 2020 with recurrence in 2021 Surgical History Surgical History (Updated 09/09/25 @ 00:38 by Elisabeth Carvajal APRN) History of tonsillectomy and adenoidectomy History of colonoscopy 2019 History of esophagogastroduodenoscopy (EGD) History of colon resection Reports having a partial colectomy at the time of her total abdominal hysterectomy in 2019 at [place] due to her ovarian cancer involving the colon. CT scan of the abdomen/pelvis shows a rectal and cecal anastomosis. History of cholecystectomy History of right mastectomy With reconstruction History of total abdominal hysterectomy and bilateral salpingo-oophorectomy History of left knee replacement (2022) Family History Family History Mother Breast cancer Ovarian cancer Father Family history of lung disease Daughter Breast cancer History of hysterectomy Grandparent Breast cancer maternal grandfather Social History Social History Social History: She lives with her of 32 years. 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 She has 2 daughters and a son. Her youngest daughter was just diagnosed with breast cancer. She used to smoke up to a pack of cigarettes per day but then would not smoke for up to a week after that. She did this for proximally 30 years but quit smoking in the . She denies any history of heavy alcohol use or illicit substance use. She ambulates with a Rollator. Code status: Full code Surrogate decision maker: Smoking packs per day: 0.5 Smoking cigarettes per day: 10.0 Years smoked: 5 Smoking pack-years: 2.50 Smoking status: Never smoker Additional smoking assessment comments: distant history of smoking as a teenager Alcohol intake: never Substance use: never Substance use type: does not use Lack of Transportation: No Lack of Food: Never True Current Housing: I Have Housing Concerned About Future Housing: No Difficulty Paying Gas/Electric Bills: No Difficulty Paying for Meds: No Currently Unemployed: No Education: Decline to Answer Difficulty w/ Childcare or Family Care: No Gender identity (if verbalized by the patient): Male Sexual Orientation (if Verbalized by the Patient): Straight or Heterosexual Spiritual care concerns: No Agree to blood products: Yes Meds Home Medications and Allergies Home Medications ?Medication ?Instructions ?Recorded ?Confirmed ?Type potassium chloride 20 mEq 20 meq PO BID 09/11/23 09/08/25 History tablet,extended release(part/cryst) (Klor-Con M) gabapentin 600 mg tablet 600 mg PO Q12H 07/16/24 09/08/25 History meloxicam 7.5 mg tablet 7.5 mg PO DAILY 07/16/24 09/08/25 History ondansetron HCl 8 mg tablet 8 mg PO Q8H PRN nausea and vomiting 07/16/24 09/08/25 History esomeprazole magnesium 40 mg 40 mg PO Q24H 02/11/25 09/08/25 History capsule,delayed release loratadine 10 mg tablet 10 mg PO Q24H PRN allergy symptoms 02/11/25 09/08/25 History pyridoxine (vitamin B6) 100 mg 100 mg PO DAILY 02/11/25 09/08/25 History tablet famotidine 20 mg tablet 20 mg PO BID 04/10/25 09/08/25 History ferrous sulfate 325 mg (65 mg 325 mg PO DAILY 04/10/25 09/08/25 History iron) tablet (Feosol) fluticasone propionate 50 1 spray intranasal PRN PRN rhinitis 04/10/25 09/08/25 History mcg/actuation nasal spray,suspension lidocaine-prilocaine 2.5 %-2.5 % 1 applic topical PRN PRN pain 04/10/25 09/08/25 History topical cream lorazepam 0.5 mg tablet (Ativan) 0.5 mg PO Q6H PRN nausea and 04/10/25 09/08/25 History vomiting simethicone 125 mg capsule 125 mg PO DAILY PRN gas #20 caps 08/15/25 09/08/25 Rx fluoxetine 40 mg capsule 40 mg PO DAILY 09/08/25 09/08/25 History pantoprazole 40 mg tablet,delayed 40 mg PO DAILY 09/08/25 09/08/25 History release Allergies Allergy/AdvReac Type Severity Reaction Status Date / Time coconut Allergy Severe Anaphylaxis Verified 09/09/25 00:23 adhesive tape Allergy Unknown Other Verified 09/09/25 00:23 celecoxib (From Celebrex) AdvReac Rash Verified 09/09/25 00:23 Vital Signs Vital Signs - 24 hr 09/08/25 15:20 09/08/25 15:35 09/08/25 15:37 Temperature 97.5 F L Pulse Rate 153 H 163 H 162 H Respiratory Rate 16 20 19 Blood Pressure 98/56 L 98/74 L Pulse Oximetry 99 96 Oxygen Delivery Room Air 09/08/25 15:53 09/08/25 16:20 09/08/25 16:46 Temperature Pulse Rate 151 H 146 H 96 Respiratory Rate 22 H 16 Blood Pressure 122/56 L Pulse Oximetry 100 99 Oxygen Delivery 09/08/25 16:47 09/08/25 17:00 09/08/25 17:01 Temperature Pulse Rate 95 113 H 112 H Respiratory Rate 15 15 16 Blood Pressure 98/59 L Pulse Oximetry 98 97 97 Oxygen Delivery 09/08/25 17:05 09/08/25 17:15 09/08/25 17:16 Temperature Pulse Rate 113 H 112 H 113 H Respiratory Rate 16 19 Blood Pressure 98/59 L 99/57 L Pulse Oximetry 97 98 Oxygen Delivery 09/08/25 17:17 09/08/25 17:27 09/08/25 17:30 Temperature Pulse Rate 113 H 114 H 112 H Respiratory Rate 15 18 Blood Pressure 99/57 L Pulse Oximetry 97 99 Oxygen Delivery 09/08/25 17:31 09/08/25 17:45 09/08/25 17:46 Temperature Pulse Rate 113 H 90 94 Respiratory Rate 17 17 17 Blood Pressure 92/64 L 99/59 L Pulse Oximetry 98 100 99 Oxygen Delivery 09/08/25 17:47 09/08/25 18:26 09/08/25 18:30 Temperature Pulse Rate 92 95 92 Respiratory Rate 15 14 20 Blood Pressure 98/68 L Pulse Oximetry 99 98 98 Oxygen Delivery 09/08/25 18:32 09/08/25 18:45 09/08/25 18:46 Temperature Pulse Rate 92 92 95 Respiratory Rate 17 13 15 Blood Pressure 104/46 L 91/64 L Pulse Oximetry 99 99 97 Oxygen Delivery 09/08/25 18:47 09/08/25 20:00 Temperature 98.0 F 98.2 F Pulse Rate 96 95 Respiratory Rate 14 17 Blood Pressure 92/73 L 101/56 L Pulse Oximetry 98 99 Oxygen Delivery Exam Const: General: cooperative, comfortable, no acute distress, well developed, awake, Physically active, average body habitus and well nourished Nutritional Appearance: average body habitus and well nourished Orientation/consciousness: oriented to person, oriented to place, oriented to time and patient oriented x3 Limitations: no limitations HENMT: Head: normal to inspection, No palpable skull fracture present, normocephalic, atraumatic and abrasion Ears: hearing grossly normal bilaterally and external ears normal Eyes: General: appearance normal, both eyes and all related structures Alignment and Position: alignment normal Periorbital: periorbital findings normal Eyelids: eyelids normal EOM: EOMs intact bilaterally Neck: Neck: normal visual inspection and full ROM Resp: Effort & Inspection: normal respiratory effort Auscultation: clear to auscultation bilaterally Cardio: Palpation: normal PMI Rate: regular rate Rhythm: regular rhythm Heart sounds: S1 normal heart sound present and S2 normal heart sound present Peripheral pulses: Peripheral pulses 2+ throughout GI: Inspection: normal to inspection : General: Yes no CVA tenderness Back/Spine/Pelvis: Back: no CVA tenderness Cervical Spine: cervical ROM normal Skin: General skin exam: normal color Lesions: no lesions Rashes: no rashes Trauma: no lacerations or abrasions Wounds: no wounds Neuro: General: oriented to person, oriented to place, oriented to time and patient oriented x3 Cranial nerves: Yes Equal, round and reactive pupils present and Yes Normal hearing present Cognition (Neuro): normal cognition Speech: normal speech Other: Essential tremors of the hands especially with movement/intention Lower extremity tremors. Extrem: General: normal to inspection Right upper extremity: normal to inspection and shoulder/upper arm Left upper extremity: normal to inspection and shoulder/upper arm Right lower extremity: normal to inspection Left lower extremity: normal to inspection Psych: Appearance: grossly normal Mental Status: mental status grossly normal Speech and movement: Normal speech and movement present Affect: normal affect Attitude: cooperative Thought process: Normal thought process present Thought content: Yes Normal thought content present Insight: Good insight present (Psych) Judgement: Good judgement present (Psych) Results Labs Labs: Short CBC 09/08/25 Range/Units 16:17 WBC 6.9 (4.5-10.0) K/mm3 Hgb 8.9 L (12.0-15.0) g/dL Hct 26.5 L (37.0-47.0) % Plt Count 239 (150-375) k/mm3 BMP 09/08/25 16:17 Sodium 137 Potassium 3.2 L Chloride 104 Carbon Dioxide 28 BUN 11 Creatinine 1.18 H Glucose 93 Calcium 8.3 L Cardiac Enzymes 09/08/25 09/08/25 Range/Units 16:17 19:11 Troponin I < 0.012 0.014 (0.000-0.034) ng/mL Liver Function 09/08/25 Range/Units 16:17 Total Bilirubin 0.5 (0.2-1.3) mg/dL AST 31 (14-36) U/L ALT 17 (6-35) U/L Alkaline Phosphatase 135 H (38-126) U/L Albumin 3.1 L (3.5-5.1) g/dL Attestation: I personally reviewed all lab results ECG Interpretation: est Date: 2025-09-08 15:24:01 Measurements Intervals [place] Rate: 163 P: 0 MS: 0 QRS: 106 QRSD: 81 T: 127 QT: 283 QTc: 467 Interpretive Statements ATRIAL FLUTTER/TACHYCARDIA WITH RAPID VENTRICULAR RATE RIGHT AXIS DEVIATION ST-T WAVE ABNORMALITY IN INF/LAT LEADS- CONSIDER ISCHEMIA OR RATE RELATED BASELINE ARTIFACT- I, II, III, AVR, AVL, AVF, V1-V6 ABNORMAL ECG Compared to ECG 09/08/2025 14:44:30 NO SIGNIFICANT CHANGE Test Date: 2025-09-08 18:37:05 Measurements Intervals [place] Rate: 93 P: 55 MS: 152 QRS: 58 QRSD: 88 T: 61 QT: 377 QTc: 471 Interpretive Statements SINUS RHYTHM WITH OCCASIONAL VENTRICULAR PREMATURE COMPLEXES BASELINE ARTIFACT- I, II, III, AVR, AVL, AVF, V1-V6 BORDERLINE ECG Compared to ECG 09/08/2025 15:24:01 Atrial flutter no longer present Imaging Chest x-ray: Attestation: I personally reviewed this imaging study My impression: Impressions Chest X-Ray 09/08/25 18:48 IMPRESSION: 1. No acute findings. Emphysematous lungs. Postoperative changes of right breast. Quality VTE Prophylaxis VTE prophylaxis: pharmacologic ordered Assessment and Plan Assessment and plan (1) SVT (supraventricular tachycardia): Code(s): I47.10 - Supraventricular tachycardia, unspecified Status: Acute Assessment and Plan: -her initial EKG was read as atrial flutter-tachycardia with rapid ventricular rate heart rate 163. The patient was given Cardizem IV push and then started on a Cardizem drip. Repeat EKG shows heart rate 93 with sinus rhythm with occasional PVC. -I did stop her Cardizem drip as her blood pressure dropped to 83/60. IV fluids were started. -I ordered a pulmonary CTA to rule out PE. -cardiology consultation would greatly be appreciated for their evaluation and assessment. -Ronnell Vasc score is 2 anticoagulation should be recommended according to med calculation. -subcu Lovenox has been ordered. Further recommendations per Cardiology would be appreciated. Patient has chronic anemia. 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 -has bled score 2 points moderate risk of major bleeding as per med calc -check for infection. Her chest x-ray was reported as negative. Check urinalysis as well. She is afebrile. -an echo has been ordered. (2) Ovarian cancer: Code(s): C56.9 - Malignant neoplasm of unspecified ovary Status: Acute Assessment and Plan: -the patient stated she is no longer receiving chemotherapy but rather will continue with radiation the part 2025. She is aware that her cancer is worsening. She does go to the [facility] for her treatment. 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 -she would rather not see the oncologist here but rather she sees her oncologist at the [facility]. -patient requested to see GI here. Due to her GI upset. -continue with gabapentin for her chemo induced neuropathy. -the patient also has the past history of having right breast cancer status post mastectomy and chemoradiation. (3) Anxiety and depression: Code(s): F41.9 - Anxiety disorder, unspecified; F32.A - Depression, unspecified Status: Acute Assessment and Plan: -continue with fluoxetine (4) Hypokalemia: Code(s): E87.6 - Hypokalemia Status: Acute Assessment and Plan: -the patient has been on p.o. supplements at home. Her potassium was only slightly low at 3.2. The patient was supplemented in the emergency room with an extra dose of potassium. -recheck labs in the a.m.. 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 (6) Anemia: Code(s): D64.9 - Anemia, unspecified Status: Acute Assessment and Plan: -her H&H is currently 8.9 and 26.5. Which is improved from her H&H of 6.7 and 20.5 on 08/15/2025. Patient is no longer receiving chemotherapy. (7) GERD (gastroesophageal reflux disease): Qualifiers: Esophagitis presence: esophagitis presence not specified Qualified Code(s): K21.9 - Gastro-esophageal reflux disease without esophagitis Code(s): K21.9 - Gastro-esophageal reflux disease without esophagitis Status: Acute Assessment and Plan: -the patient stated that she has been on 2 PPIs and an H2 marilyn. The patient stated that she continues to have much gas and belching frequently. She is also on simethicone at home. -she requested to see GI here.
[2025-09-08 23:20] LABS: Troponin I 0.018 ng/mL (0.000-0.034)
[2025-09-09] VITALS (14 sets, daily range): BP systolic 83–132; BP diastolic 42–97; PULSE 73–101; RESP 16–20; TEMP 36.3–37.1; O2SAT 95–100
[2025-09-09 00:03] LABS: Toxigenic C. Diff NEGATIVE (NEGATIVE)
[2025-09-09] MEDS: GABAPENTIN 300 MG CAPSULE 600 MG PO ×3 (00:37→20:31)
[2025-09-09] MEDS: SODIUM CHLORIDE 0.9% IV 1,000 ML 100 ML IV CONT ×2 (00:37→10:19)
[2025-09-09 00:42] LABS: Add Urine Microscopic? YES; Appearance Urine Turbid (Clear); Budding Yeast Urine Present /hpf; Glucose Urine UA Negative (Negative); Leukocyte Esterase Ur 3+ LEU/UL (Negative); Need Manual Microscopic Reviewed; Nitrate Urine Positive (Negative); Specific Grav Ur 1.015 (1.001-1.035)
[2025-09-09] MEDS: ENOXAPARIN 60 MG/0.6 ML SYRINGE 49 MG SUB-Q ×2 (01:17→10:19)
[2025-09-09 04:28] LABS: Hematocrit 24.0 % (37.0-47.0); Hemoglobin 7.6 g/dL (12.0-15.0); Mean Corpuscular HGB Conc 31.7 g/dl (32-36); Mean Corpuscular Hemoglobin 33.9 pg (26-34); Mean Corpuscular Volume 107.1 fl (80-100); Platelet Count Result 202 k/mm3 (150-375); Red Blood Count 2.24 M/mm3 (4.2-5.4); White Blood Count 7.3 K/mm3 (4.5-10.0)
[2025-09-09 05:00] LABS: Anion Gap 1 mmol/L (4-12); Blood Urea Nitrogen 13 mg/dL (7-17); Calcium 7.7 mg/dL (8.4-10.2); Carbon Dioxide 27 mmol/L (22-30); Chloride 105 mmol/L (98-107); Estimated CRCL calculation 31 ml/min; Estimated Glomerular Filt Rate 45; Glucose 99 mg/dL (65-110); Potassium 3.2 mmol/L (3.4-5.0); Sodium 133 mmol/L (137-145)
[2025-09-09] MEDS: MELOXICAM 7.5 MG TABLET PO (08:45)
[2025-09-09] MEDS: FAMOTIDINE 20 MG TABLET PO ×2 (08:45→16:58)
[2025-09-09] MEDS: PANTOPRAZOLE 40 MG TABLET PO (08:45)
[2025-09-09] MEDS: POTASSIUM CHLORIDE 20 MEQ ER TABLET PO ×2 (08:45→16:58)
[2025-09-09] MEDS: SIMETHICONE 80 MG TAB.CHEW PO ×4 (08:45→20:31)
[2025-09-09] MEDS: FERROUS SULFATE 325 MG TABLET BY MOUTH (08:45)
--- NOTE | 2025-09-09 10:16 | PM.CNCAR ---
Assessment and Plan Assessment and plan (1) SVT (supraventricular tachycardia): Code(s): I47.10 - Supraventricular tachycardia, unspecified Status: Acute Plan 70-year-old lady with: Atypical atrial flutter with two-to-one conduction with which she was interestingly asymptomatic. This was noted when she went to the urgent care center last evening complaining of chills cough and rhinorrhea. She is currently back in sinus rhythm and is asymptomatic of any of this. Diltiazem may have converted her or she may have converted spontaneously. 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 I am going to place her on a modest dose of metoprolol because of her atrial flutter. An echocardiogram has been requested which of course is fine that is not going to be done on Wednesday. She is significantly anemic I will not be recommending anticoagulation in this setting. Lv Hill MD [facility] History of Present Illness History of Present Illness Consult date/time: 09/09/25 10:16 Reason For Visit: SVT, hypokalemia Narrative: This is a 70-year-old woman I am seeing at the request of the hospitalist for assistance with management of atrial flutter. The patient is unknown to me prior to this consultation and does not really have any specific cardiac diagnosis prior to this. She is a unfortunate lady who has metastatic ovarian cancer and is followed by untreated by oncologists at [facility]. She also has a remote history of breast carcinoma. She went to an urgent care center yesterday because she was feeling unwell for a couple of days with the sense of coughing and chills. She was not really aware of the sense of tachycardia or palpitations he denied any chest pain shortness of breath etc.. She was found to be quite tachycardic her ECG initially showed a regular narrow QRS tachycardia with a heart rate of 150 with a lot of artifact and so the nature of the arrhythmia was difficult to discern. Subsequent ECG demonstrated the baseline to show atypical atrial flutter. She was started on diltiazem and after that converted to sinus rhythm. She was sent from the urgent care to this hospital's emergency room and then admitted. Because of her cancer she is significantly anemic with a hemoglobin of 7.6. Recently her hemoglobin was in the range of 6 and she received a blood transfusion by her oncologist. She is comfortable at this time and offers no complaints she is currently in sinus rhythm. Her only other new medical complaint is that of a tremor of her upper extremities that began within the last couple of weeks. She said she had this problem about a year ago it resolved spontaneously and recently has recurred. Review of Systems Constitutional: Constitutional: Reports lethargy Eyes: Eyes: Reports no additional eye complaints ENT: Reports system reviewed and no additional complaints, except as documented Cardiovascular: Cardiovascular: Reports no additional cardiovascular complaints Respiratory: Respiratory: Reports no additional respiratory complaints Gastrointestinal: Gastrointestinal: Reports no additional gastrointestinal complaints Musculoskeletal: Musculoskeletal: Reports no additional musculoskeletal complaints Integumentary/Breasts: Skin/Breast: Reports system reviewed and no additional complaints, except as docu Neurologic: Reports system reviewed and no additional complaints, except as documented Endocrine: Endocrine: Reports no additional endocrine complaints Hematologic/Lymphatic: Hematologic/Lymphatic: Reports no additional hematologic/lymphatic complaints Allergic/Immunologic: Allergic/Immunologic: Reports no additional allergic/immunologic complaints [facility] Past Medical History Medical History (Updated 09/09/25 @ 01:30 by Elisabeth Carvajal APRN) Anemia Urinary retention Urinary tract infection 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 Nausea and vomiting in adult Hydronephrosis Chronic kidney disease, stage 3 Gastroesophageal reflux disease Breast cancer Right breast Depression Anxiety Irritable bowel syndrome Chronic anemia Peripheral neuropathy due to chemotherapy Osteoporosis Ovarian cancer Approximately 2020 with recurrence in 2021 Surgical History Surgical History (Updated 09/09/25 @ 00:38 by Elisabeth Carvajal APRN) History of tonsillectomy and adenoidectomy History of colonoscopy 2019 History of esophagogastroduodenoscopy (EGD) History of colon resection Reports having a partial colectomy at the time of her total abdominal hysterectomy in 2019 at [place] due to her ovarian cancer involving the colon. CT scan of the abdomen/pelvis shows a rectal and cecal anastomosis. History of cholecystectomy History of right mastectomy With reconstruction History of total abdominal hysterectomy and bilateral salpingo-oophorectomy History of left knee replacement (2022) Family History Family History Mother Breast cancer Ovarian cancer Father Family history of lung disease Daughter Breast cancer History of hysterectomy Grandparent Breast cancer maternal grandfather Social History Social History Social History: She lives with her of 32 years. 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 She has 2 daughters and a son. Her youngest daughter was just diagnosed with breast cancer. She used to smoke up to a pack of cigarettes per day but then would not smoke for up to a week after that. She did this for proximally 30 years but quit smoking in the . She denies any history of heavy alcohol use or illicit substance use. She ambulates with a Rollator. Code status: Full code Surrogate decision maker: Smoking packs per day: 0.5 Smoking cigarettes per day: 10.0 Years smoked: 5 Smoking pack-years: 2.50 Smoking status: Never smoker Additional smoking assessment comments: distant history of smoking as a teenager Alcohol intake: never Substance use: never Substance use type: does not use Lack of Transportation: No Lack of Food: Never True Current Housing: I Have Housing Concerned About Future Housing: No Difficulty Paying Gas/Electric Bills: No Difficulty Paying for Meds: No Currently Unemployed: No Education: Decline to Answer Difficulty w/ Childcare or Family Care: No Gender identity (if verbalized by the patient): Male Sexual Orientation (if Verbalized by the Patient): Straight or Heterosexual Spiritual care concerns: No Agree to blood products: Yes Meds Home Medications and Allergies Home Medications ?Medication ?Instructions ?Recorded ?Confirmed ?Type potassium chloride 20 mEq 20 meq PO BID 09/11/23 09/08/25 History tablet,extended release(part/cryst) (Klor-Con M) gabapentin 600 mg tablet 600 mg PO Q12H 07/16/24 09/08/25 History meloxicam 7.5 mg tablet 7.5 mg PO DAILY 07/16/24 09/08/25 History ondansetron HCl 8 mg tablet 8 mg PO Q8H PRN nausea and vomiting 07/16/24 09/08/25 History esomeprazole magnesium 40 mg 40 mg PO Q24H 02/11/25 09/08/25 History capsule,delayed release loratadine 10 mg tablet 10 mg PO Q24H PRN allergy symptoms 02/11/25 09/08/25 History pyridoxine (vitamin B6) 100 mg 100 mg PO DAILY 02/11/25 09/08/25 History tablet famotidine 20 mg tablet 20 mg PO BID 04/10/25 09/08/25 History ferrous sulfate 325 mg (65 mg 325 mg PO DAILY 04/10/25 09/08/25 History iron) tablet (Feosol) fluticasone propionate 50 1 spray intranasal PRN PRN rhinitis 04/10/25 09/08/25 History mcg/actuation nasal spray,suspension lidocaine-prilocaine 2.5 %-2.5 % 1 applic topical PRN PRN pain 04/10/25 09/08/25 History topical cream lorazepam 0.5 mg tablet (Ativan) 0.5 mg PO Q6H PRN nausea and 04/10/25 09/08/25 History vomiting simethicone 125 mg capsule 125 mg PO DAILY PRN gas #20 caps 08/15/25 09/08/25 Rx fluoxetine 40 mg capsule 40 mg PO DAILY 09/08/25 09/08/25 History pantoprazole 40 mg tablet,delayed 40 mg PO DAILY 09/08/25 09/08/25 History release Allergies Allergy/AdvReac Type Severity Reaction Status Date / Time coconut Allergy Severe Anaphylaxis Verified 09/09/25 00:23 adhesive tape Allergy Unknown Other Verified 09/09/25 00:23 celecoxib (From Celebrex) AdvReac Rash Verified 09/09/25 00:23 Vital Signs Vital Signs - 24 hr 09/08/25 15:20 09/08/25 15:35 09/08/25 15:37 Temperature 36.4 C L Pulse Rate 153 H 163 H 162 H Respiratory Rate 16 20 19 Blood Pressure 98/56 L 98/74 L Pulse Oximetry 99 96 Oxygen Delivery Room Air 09/08/25 15:53 09/08/25 16:20 09/08/25 16:46 Temperature Pulse Rate 151 H 146 H 96 Respiratory Rate 22 H 16 Blood Pressure 122/56 L Pulse Oximetry 100 99 Oxygen Delivery 09/08/25 16:47 09/08/25 17:00 09/08/25 17:01 Temperature Pulse Rate 95 113 H 112 H Respiratory Rate 15 15 16 Blood Pressure 98/59 L Pulse Oximetry 98 97 97 Oxygen Delivery 09/08/25 17:05 09/08/25 17:15 09/08/25 17:16 Temperature Pulse Rate 113 H 112 H 113 H Respiratory Rate 16 19 Blood Pressure 98/59 L 99/57 L Pulse Oximetry 97 98 Oxygen Delivery 09/08/25 17:17 09/08/25 17:27 09/08/25 17:30 Temperature Pulse Rate 113 H 114 H 112 H Respiratory Rate 15 18 Blood Pressure 99/57 L Pulse Oximetry 97 99 Oxygen Delivery 09/08/25 17:31 09/08/25 17:45 09/08/25 17:46 Temperature Pulse Rate 113 H 90 94 Respiratory Rate 17 17 17 Blood Pressure 92/64 L 99/59 L Pulse Oximetry 98 100 99 Oxygen Delivery 09/08/25 17:47 09/08/25 18:26 09/08/25 18:30 Temperature Pulse Rate 92 95 92 Respiratory Rate 15 14 20 Blood Pressure 98/68 L Pulse Oximetry 99 98 98 Oxygen Delivery 09/08/25 18:32 09/08/25 18:45 09/08/25 18:46 Temperature Pulse Rate 92 92 95 Respiratory Rate 17 13 15 Blood Pressure 104/46 L 91/64 L Pulse Oximetry 99 99 97 Oxygen Delivery 09/08/25 18:47 09/08/25 20:00 09/08/25 20:00 Temperature 36.7 C 36.8 C Pulse Rate 96 95 Respiratory Rate 14 17 Blood Pressure 92/73 L 101/56 L Pulse Oximetry 98 99 Oxygen Delivery Room Air 09/08/25 20:27 09/08/25 22:00 09/08/25 22:00 Temperature 36.9 C Pulse Rate 92 92 97 Respiratory Rate 13 Blood Pressure 93/60 L Pulse Oximetry 98 Oxygen Delivery 09/09/25 00:00 09/09/25 00:00 09/09/25 00:00 Temperature 36.8 C Pulse Rate 79 78 Respiratory Rate 20 Blood Pressure 83/60 L Pulse Oximetry 98 Oxygen Delivery Room Air 09/09/25 02:00 09/09/25 02:00 09/09/25 04:00 Temperature 36.4 C L Pulse Rate 81 83 Respiratory Rate 16 Blood Pressure 132/95 H Pulse Oximetry 98 Oxygen Delivery Room Air 09/09/25 04:00 09/09/25 04:00 09/09/25 05:22 Temperature 37.1 C Pulse Rate 74 85 Respiratory Rate 18 Blood Pressure 88/42 L 91/48 L Pulse Oximetry 100 Oxygen Delivery 09/09/25 06:00 09/09/25 07:32 Temperature 36.6 C Pulse Rate 90 91 Respiratory Rate 18 Blood Pressure 90/51 L Pulse Oximetry 97 Oxygen Delivery Exam Const: General: comfortable and no acute distress HENMT: Mouth: Yes moist mucous membranes Eyes: Sclera: sclerae normal Neck: Neck: supple and no JVD Resp: Effort & Inspection: normal respiratory effort Auscultation: clear to auscultation bilaterally Cardio: Rate: regular rate Rhythm: regular rhythm Other: Very soft systolic murmur there which does not radiate from the left sternal border. No diastolic murmur no rub GI: GI Palp: Yes Soft to palpation Auscultation: normal bowel sounds Skin: General skin exam: normal color Neuro: Other: Alert and oriented x3 Extrem: General: normal to inspection Results Labs and Meds 09/09/25 03:49 09/09/25 03:49 Lab results: Cardiac Enzymes 09/08/25 09/08/25 09/08/25 Range/Units 16:17 19:11 22:39 AST 31 (14-36) U/L Troponin I < 0.012 0.014 0.018 D (0.000-0.034) ng/mL Coagulation 09/08/25 Range/Units 16:17 PT 14.2 (11.1-14.7) Seconds APTT 28.4 (22.3-36.8) Seconds CBC 09/08/25 09/09/25 Range/Units 16:17 03:49 WBC 6.9 7.3 (4.5-10.0) K/mm3 RBC 2.58 L 2.24 L (4.2-5.4) M/mm3 Hgb 8.9 L 7.6 L (12.0-15.0) g/dL Hct 26.5 L 24.0 L (37.0-47.0) % Plt Count 239 202 (150-375) k/mm3 Lymph # (Auto) 1.12 (0.9-3.2) K/mm3 Walker # (Auto) 0.8 H (0.1-0.6) K/mm3 Eos # (Auto) 0.1 (0-0.3) K/mm3 Baso # (Auto) 0.0 (0.0-0.1) K/mm3 Comprehensive Metabolic Panel 09/08/25 09/09/25 Range/Units 16:17 03:49 Sodium 137 133 L (137-145) mmol/L Potassium 3.2 L 3.2 L (3.4-5.0) mmol/L Chloride 104 105 (98-107) mmol/L Carbon Dioxide 28 27 (22-30) mmol/L BUN 11 13 (7-17) mg/dL Creatinine 1.18 H 1.20 H (0.7-1.0) mg/dL Glucose 93 99 (65-110) mg/dL Calcium 8.3 L 7.7 L (8.4-10.2) mg/dL AST 31 (14-36) U/L ALT 17 (6-35) U/L Alkaline Phosphatase 135 H (38-126) U/L Total Protein 6.1 L (6.3-8.2) g/dL Albumin 3.1 L (3.5-5.1) g/dL Intake and Output 09/08/25 09/09/25 09/09/25 23:59 07:59 15:59 Intake Total 6.6 500 240 Output Total 50 500 Balance -43.4 0 240 Intake: IV 6.6 dilTIAZem 100 MG/100 ML 100 mg 6.6 In 100 ml @ 10 MG/HR 10 mls/hr IV CONT .Q10H STA Rx#:[id number] Oral 500 240 Output: Urine 500 Stool 50 Other: Number of Bowel Movements Today 1 2 Patient Weight 09/09/25 23:59 Weight 49.9 kg
[2025-09-09] MEDS: METOPROLOL SUCCINATE EXT REL 25 MG TABCR PO (10:19)
[2025-09-09 10:36] LABS: Magnesium 0.9 mg/dL (1.6-2.3)
--- NOTE | 2025-09-09 10:36 | P.PNIM_ITS ---
Assessment and Plan Assessment and Plan (1) Hypokalemia: Code(s): E87.6 - Hypokalemia Status: Acute (2) Tremor: Code(s): R25.1 - Tremor, unspecified Status: Acute (3) Anemia: Code(s): D64.9 - Anemia, unspecified Status: Acute (4) Ovarian cancer: Code(s): C56.9 - Malignant neoplasm of unspecified ovary Status: Acute (5) UTI (urinary tract infection): Code(s): N39.0 - Urinary tract infection, site not specified Status: Acute (6) SVT (supraventricular tachycardia): Code(s): I47.10 - Supraventricular tachycardia, unspecified Status: Acute Plan A pleasant 70-year-old female patient who has a history of metastatic ovarian cancer currently on radiation. The patient was seen at the [place] urgent care and then sent to the ER. The patient felt short of breath and shaky, runny nose, occasional cough with clear phlegm production. The patient denies any fever or chills. The patient stated that she is no longer receiving chemotherapy and she is on break from radiation. She stated that after the of the year she has decided to go through with radiation. Her last PET scan on August 27 showed spread of the cancer and the patient is aware. Her H&H is 8.9 and 26.5 which is improved from her baseline. Her potassium was found to be 3.2 in was supplemented in the emergency room. Her BUN is normal creatinine slightly elevated at 1.18. Her GFR is 45 which has improved from the last value of 40 on 08/15/2025. Calcium is low at 8.3. Troponins were negative. BNP 3080. She stated that she has diarrhea and her C diff was negative. The patient was negative for influenza a, influenza B, and COVID. Chest x-ray was read as no acute findings. Emphysematous lungs. Postoperative changes of right breast. EKG was atrial flutter/tachycardia with rapid ventricular rate. Repeat EKG shows her heart rate in the 90s with a sinus rhythm with occasional PVCs. The patient had been started on a Cardizem drip. The patient was also given lorazepam Tylenol and potassium in the emergency room. Admitted on 09/08/2025. ----- Currently normal sinus rhythm. Appreciate Cardiology recommendations. Metoprolol started. Diltiazem GTT discontinued. Will not receive anticoagulation due to significant anemia. Continue telemetry. Magnesium 0.9. On 09/09 Giving 4 g rider. Also potassium low at 3.2. Has been scheduled for KCl 20 mEq b.i.d., give additional 20 KCl now p.o.. Serum creatinine stable, continue to monitor. Blood pressure borderline low, patient appears dehydrated. Continue normal saline at 100 cc/hour. Discontinue Mobic. Quad viral screen negative. Likely a viral URI unrelated to COVID/flu/RSV. Guaifenesin p.r.n.. Abnormal urinalysis, indicative of infection. Start ceftriaxone 1 g q.day on 09/09/2025. Follow urine culture and blood culture. Continue Protonix, famotidine, simethicone GI consulted. ----- Lovenox 40 mg subQ q.day for DVT prophylaxis. Continue [employer] ADVISOR PPI, H2 marilyn. Patient wishes to be full code. Ambulate with assistance, fall precautions. Expected length of stay 2-4 days Transfer to medical floor with telemetry. Subjective Date/time seen: 09/09/25 10:36 Interval history: She reports persistent runny nose and occasional cough with clear phlegm. Has aching on the left side of abdomen. Review of Systems Review of Systems: All systems reviewed & are unremarkable except as noted in HPI and below (Subjective) Exam Const: General: comfortable and no acute distress HENMT: Mouth: Yes moist mucous membranes Eyes: Pupils: Equal, round and reactive pupils present Neck: Neck: supple Resp: Effort & Inspection: normal respiratory effort Auscultation: clear to auscultation bilaterally Cardio: Rate: regular rate Rhythm: regular rhythm GI: Inspection: non-distended GI Palp: Yes Soft to palpation Neuro: Motor exam (neuro): 5/5 motor strength present throughout Extrem: General: no edema Other: Resting tremor Objective Data Vital Signs Vital Signs: Vital Signs - 24 hr 09/08/25 15:20 09/08/25 15:35 09/08/25 15:37 Temperature 97.5 F L Pulse Rate 153 H 163 H 162 H Respiratory Rate 16 20 19 Blood Pressure 98/56 L 98/74 L Pulse Oximetry 99 96 Oxygen Delivery Room Air 09/08/25 15:53 09/08/25 16:20 09/08/25 16:46 Temperature Pulse Rate 151 H 146 H 96 Respiratory Rate 22 H 16 Blood Pressure 122/56 L Pulse Oximetry 100 99 Oxygen Delivery 09/08/25 16:47 09/08/25 17:00 09/08/25 17:01 Temperature Pulse Rate 95 113 H 112 H Respiratory Rate 15 15 16 Blood Pressure 98/59 L Pulse Oximetry 98 97 97 Oxygen Delivery 09/08/25 17:05 09/08/25 17:15 09/08/25 17:16 Temperature Pulse Rate 113 H 112 H 113 H Respiratory Rate 16 19 Blood Pressure 98/59 L 99/57 L Pulse Oximetry 97 98 Oxygen Delivery 09/08/25 17:17 09/08/25 17:27 09/08/25 17:30 Temperature Pulse Rate 113 H 114 H 112 H Respiratory Rate 15 18 Blood Pressure 99/57 L Pulse Oximetry 97 99 Oxygen Delivery 09/08/25 17:31 09/08/25 17:45 09/08/25 17:46 Temperature Pulse Rate 113 H 90 94 Respiratory Rate 17 17 17 Blood Pressure 92/64 L 99/59 L Pulse Oximetry 98 100 99 Oxygen Delivery 09/08/25 17:47 09/08/25 18:26 09/08/25 18:30 Temperature Pulse Rate 92 95 92 Respiratory Rate 15 14 20 Blood Pressure 98/68 L Pulse Oximetry 99 98 98 Oxygen Delivery 09/08/25 18:32 09/08/25 18:45 09/08/25 18:46 Temperature Pulse Rate 92 92 95 Respiratory Rate 17 13 15 Blood Pressure 104/46 L 91/64 L Pulse Oximetry 99 99 97 Oxygen Delivery 09/08/25 18:47 09/08/25 20:00 09/08/25 20:00 Temperature 98.0 F 98.2 F Pulse Rate 96 95 Respiratory Rate 14 17 Blood Pressure 92/73 L 101/56 L Pulse Oximetry 98 99 Oxygen Delivery Room Air 09/08/25 20:27 09/08/25 22:00 09/08/25 22:00 Temperature 98.4 F Pulse Rate 92 92 97 Respiratory Rate 13 Blood Pressure 93/60 L Pulse Oximetry 98 Oxygen Delivery 09/09/25 00:00 09/09/25 00:00 09/09/25 00:00 Temperature 98.2 F Pulse Rate 79 78 Respiratory Rate 20 Blood Pressure 83/60 L Pulse Oximetry 98 Oxygen Delivery Room Air 09/09/25 02:00 09/09/25 02:00 09/09/25 04:00 Temperature 97.5 F L Pulse Rate 81 83 Respiratory Rate 16 Blood Pressure 132/95 H Pulse Oximetry 98 Oxygen Delivery Room Air 09/09/25 04:00 09/09/25 04:00 09/09/25 05:22 Temperature 98.7 F Pulse Rate 74 85 Respiratory Rate 18 Blood Pressure 88/42 L 91/48 L Pulse Oximetry 100 Oxygen Delivery 09/09/25 06:00 09/09/25 07:32 09/09/25 10:19 Temperature 97.9 F Pulse Rate 90 91 90 Respiratory Rate 18 Blood Pressure 90/51 L Pulse Oximetry 97 Oxygen Delivery Intake/Output Intake/Output: Intake & Output 09/06/25 09/07/25 09/08/25 09/09/25 23:59 23:59 23:59 23:59 Intake Total 6.6 1710 Output Total 50 500 Balance -43.4 1210 Meds/Results Medications: Active Medications Generic Name Dose Route Start Last Admin Trade Name Freq PRN Reason Stop Dose Admin Acetaminophen 650 mg 09/08/25 18:47 Acetaminophen 325 Mg Tablet PO Q4H PRN Mild Pain (1-3) or Fever Enoxaparin Sodium 49 mg 09/09/25 00:55 09/09/25 10:19 Enoxaparin 60 Mg/0.6 Ml Syringe SUB-Q 49 mg Q12HR DEANA Administration Famotidine 20 mg 09/09/25 09:00 09/09/25 08:45 Famotidine 20 Mg Tablet PO 20 mg BID DEANA Administration Ferrous Sulfate 325 mg 09/09/25 09:00 09/09/25 08:45 Ferrous Sulfate 325 Mg Tablet BY MOUTH 325 mg DAILY DEANA Administration Fluoxetine HCl 40 mg 09/09/25 09:00 09/09/25 08:45 Fluoxetine Hcl 20 Mg Capsule PO 40 mg DAILY DEANA Administration Fluticasone Propionate 1 spray 09/09/25 00:16 Fluticasone Propionate 0.05% Na Spr 16 Gm Btl (*Bkc) NASAL Q12HR PRN rhinitis Gabapentin 600 mg 09/09/25 00:20 09/09/25 08:45 Gabapentin 300 Mg Capsule PO 600 mg Q12HR DEANA Administration Sodium Chloride 1,000 mls @ 100 mls/hr 09/09/25 00:25 09/09/25 10:19 Normal Saline Iv IV CONT 100 mls/hr .Q10H DEANA Administration Lidocaine/Prilocaine 1 each 09/09/25 00:16 Lidocaine/Prilocaine Cream 2.5-2.5% Tube TOPICAL PRN PRN Pain Lorazepam 0.5 mg 09/09/25 00:16 Lorazepam (*Crx) 0.5 Mg Tablet PO Q6H PRN Nausea And Vomiting Meloxicam 7.5 mg 09/09/25 09:00 09/09/25 08:45 Meloxicam 7.5 Mg Tablet PO 7.5 mg DAILY DEANA Administration Metoprolol Succinate 25 mg 09/09/25 10:10 09/09/25 10:19 Metoprolol Succinate Ext Rel 25 Mg Tabcr PO 25 mg QAM DEANA Administration Pantoprazole Sodium 40 mg 09/09/25 09:00 09/09/25 08:45 Pantoprazole 40 Mg Tablet PO 40 mg DAILY DEANA Administration Perflutren Lipid Microsphere 0 ml 09/09/25 00:43 Perflutren Lipid Microspheres 1.5 Ml Vial Diluted To 10 Ml Total Volume IV PUSH 09/12/25 00:43 ONCE PRN adequate visualization Protocol Potassium Chloride 20 meq 09/09/25 08:00 09/09/25 08:45 Potassium Chloride 20 Meq Er Tablet PO 20 meq BIDWM DEANA Administration Simethicone 80 mg 09/09/25 09:00 09/09/25 08:45 Simethicone 80 Mg Tab.Chew PO 80 mg QID DEANA Administration Radiology Results: ITS Impressions Chest X-Ray 09/08/25 18:48 IMPRESSION: 1. No acute findings. Emphysematous lungs. Postoperative changes of right breast. Labs Labs: Laboratory Results - last 24 hr 09/08/25 09/08/25 09/08/25 16:17 19:11 22:39 WBC 6.9 RBC 2.58 L Hgb 8.9 L Hct 26.5 L MCV 102.7 H MCH 34.5 H MCHC 33.6 RDW 14.3 Plt Count 239 MPV 9.6 Immature Gran % (Auto) 0.3 Neut % (Auto) 71.1 Lymph % (Auto) 16.3 L Barton % (Auto) 11.0 H Eos % (Auto) 1.0 Baso % (Auto) 0.3 Lymph # (Auto) 1.12 Barton # (Auto) 0.8 H Eos # (Auto) 0.1 Baso # (Auto) 0.0 Abs Immat Gran (auto) 0.02 Absolute Neuts (auto) 4.9 Absolute Nucleated RBC 0.000 Nucleated RBC % 0.0 PT 14.2 INR 1.1 APTT 28.4 Sodium 137 Potassium 3.2 L Chloride 104 Carbon Dioxide 28 Anion Gap 5 BUN 11 Creatinine 1.18 H Estim Creat Clear Calc 30 Estimated GFR 45 L Glucose 93 Calcium 8.3 L Magnesium Total Bilirubin 0.5 AST 31 ALT 17 Alkaline Phosphatase 135 H Troponin I < 0.012 0.014 0.018 D NT-Pro-B Natriuret Pep 3080 H Total Protein 6.1 L Albumin 3.1 L Urine Color Urine Appearance Urine pH Ur Specific [place] Urine Protein Urine Glucose (UA) Urine Ketones Ur Blood (Man) Urine Nitrate Urine Bilirubin Urine Urobilinogen Add Ur Microanalysis Leukocyte Esterase Rfl Urine RBC Urine WBC Ur Squamous Epith Cells Urine Bacteria Urine Casts Urine Mucus Urine Yeast (Budding) C. difficile (PCR) 09/08/25 09/09/25 09/09/25 22:51 00:15 03:49 WBC 7.3 RBC 2.24 L Hgb 7.6 L Hct 24.0 L MCV 107.1 H MCH 33.9 MCHC 31.7 L RDW 14.2 Plt Count 202 MPV 9.8 Immature Gran % (Auto) Neut % (Auto) Lymph % (Auto) Barton % (Auto) Eos % (Auto) Baso % (Auto) Lymph # (Auto) Barton # (Auto) Eos # (Auto) Baso # (Auto) Abs Immat Gran (auto) Absolute Neuts (auto) Absolute Nucleated RBC Nucleated RBC % PT INR APTT Sodium 133 L Potassium 3.2 L Chloride 105 Carbon Dioxide 27 Anion Gap 1 L BUN 13 Creatinine 1.20 H Estim Creat Clear Calc 31 Estimated GFR 45 L Glucose 99 Calcium 7.7 L Magnesium 0.9 L Total Bilirubin AST ALT Alkaline Phosphatase Troponin I NT-Pro-B Natriuret Pep Total Protein Albumin Urine Color Yellow Urine Appearance Turbid H Urine pH 5.5 Ur Specific [place] 1.015 Urine Protein 2+ H Urine Glucose (UA) Negative Urine Ketones Trace H Ur Blood (Man) 2+ H Urine Nitrate Positive H Urine Bilirubin Negative Urine Urobilinogen 0.2 Add Ur Microanalysis Reviewed Leukocyte Esterase Rfl 3+ H Urine RBC 6-10 H Urine WBC >100 H Ur Squamous Epith Cells Few Urine Bacteria 4+ H Urine Casts 3-5 Urine Mucus Present Urine Yeast (Budding) Present H C. difficile (PCR) Negative
--- NOTE | 2025-09-09 11:25 | P.CONGI_ITS ---
Assessment and Plan Assessment and plan (1) Anemia: Code(s): D64.9 - Anemia, unspecified Status: Acute (2) Protein calorie malnutrition: Code(s): E46 - Unspecified protein-calorie malnutrition Status: Acute (3) GERD (gastroesophageal reflux disease): Qualifiers: Esophagitis presence: esophagitis presence not specified Qualified Code(s): K21.9 - Gastro-esophageal reflux disease without esophagitis Code(s): K21.9 - Gastro-esophageal reflux disease without esophagitis Status: Acute Plan 61-day-old female with history of itching cast of with metastasis. The patient had a chemo/radiation therapy. Patient has anemia. There is no sign of active GI bleed at the present time such as hematemesis or hematochezia. She does complain of chronic GERD. Plan 1. Order Protonix 40 mg, PO, daily. 2. Check CBC for tomorrow morning. 3. Stool for occult blood. GI Consult Note Consult date/time: 09/09/25 11:25 Reason for consult: 1. Anemia with hemoglobin level of 7.6. 2. Chronic GERD. HPI: Karis Kraus is a 70 year old female with a history of metastatic ovarian cancer. Patient had a chemoradiation performed in the past. She is on break from her radiation therapy. The patient came to the hospital because she felt very dizzy and was shaky. Patient on hemorrhoidal level on admission was 8.9 and this morning decreased to 7.6. There is no sign of activity of disease such as hematemesis or hematochezia. Patient does complain of chronic GERD. No dysphagia. No abdominal pain. Patient then had a PET scan that showed metastasis is and she is aware of the result. 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 Nausea and vomiting in adult Hydronephrosis Chronic kidney disease, stage 3 Gastroesophageal reflux disease Breast cancer Right breast Depression Anxiety Irritable bowel syndrome Chronic anemia Peripheral neuropathy due to chemotherapy Osteoporosis Ovarian cancer Approximately 2020 with recurrence in 2021 Surgical History Surgical History (Updated 09/09/25 @ 00:38 by Elisabeth Carvajal APRN) History of tonsillectomy and adenoidectomy History of colonoscopy 2019 History of esophagogastroduodenoscopy (EGD) History of colon resection Reports having a partial colectomy at the time of her total abdominal hysterectomy in 2019 at [place] due to her ovarian cancer involving the colon. CT scan of the abdomen/pelvis shows a rectal and cecal anastomosis. History of cholecystectomy History of right mastectomy With reconstruction History of total abdominal hysterectomy and bilateral salpingo-oophorectomy History of left knee replacement (2022) Family History Family History Mother Breast cancer Ovarian cancer Father Family history of lung disease Daughter Breast cancer History of hysterectomy Grandparent Breast cancer maternal grandfather Social History Social History Social History: She lives with her of 32 years. 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 She has 2 daughters and a son. Her youngest daughter was just diagnosed with breast cancer. She used to smoke up to a pack of cigarettes per day but then would not smoke for up to a week after that. She did this for proximally 30 years but quit smoking in the . She denies any history of heavy alcohol use or illicit substance use. She ambulates with a Rollator. Code status: Full code Surrogate decision maker: Smoking packs per day: 0.5 Smoking cigarettes per day: 10.0 Years smoked: 5 Smoking pack-years: 2.50 Smoking status: Never smoker Additional smoking assessment comments: distant history of smoking as a teenager Alcohol intake: never Substance use: never Substance use type: does not use Lack of Transportation: No Lack of Food: Never True Current Housing: I Have Housing Concerned About Future Housing: No Difficulty Paying Gas/Electric Bills: No Difficulty Paying for Meds: No Currently Unemployed: No Education: Decline to Answer Difficulty w/ Childcare or Family Care: No Gender identity (if verbalized by the patient): Male Sexual Orientation (if Verbalized by the Patient): Straight or Heterosexual Spiritual care concerns: No Agree to blood products: Yes Meds Home Medications and Allergies Home Medications ?Medication ?Instructions ?Recorded ?Confirmed ?Type potassium chloride 20 mEq 20 meq PO BID 09/11/2309/08 History tablet,extended release(part/cryst) (Klor-Con M) gabapentin 600 mg tablet 600 mg PO Q12H 07/16/2408/14 History meloxicam 7.5 mg tablet 7.5 mg PO DAILY 07/16/24 History ondansetron HCl 8 mg tablet 8 mg PO Q8H PRN nausea and vomiting 07/16/24 09/08/25 History esomeprazole magnesium 40 mg 40 mg PO Q24H 02/11/25 History capsule,delayed release loratadine 10 mg tablet 10 mg PO Q24H PRN allergy sy mptoms 02/11/25 09/08/25 History pyridoxine (vitamin B6) 100 mg 100 mg PO DAILY 5 09/08/25 History tablet famotidine 20 mg tablet 20 mg PO BID 04/10/25 History ferrous sulfate 325 mg (65 mg 325 mg PO DAILY 04/10/25 09/08/25 History iron) tablet (Feosol) fluticasone propionate 50 1 spray intranasal PRN PRN r hinitis 04/10/25 09/08/25 History mcg/actuation nasal spray,suspension lidocaine-prilocaine 2.5 %-2.5 % 1 applic topical PRN PRN pain 04/10/25 09/08/25 History topical cream lorazepam 0.5 mg tablet (Ativan) 0.5 mg PO Q6H PRN kirstin sea and 04/10/25 09/08/25 History vomiting simethicone 125 mg capsule 125 mg PO DAILY PRN gas #20 caps 08/15/25 09/08/25 Rx fluoxetine 40 mg capsule 40 mg PO DAILY 09/08/2508/14 History pantoprazole 40 mg tablet,delayed 40 mg PO DAILY 09/0809/08/25 History release Allergies Allergy/AdvReac Type Severity Reaction Status Date / Time coconut Allergy Severe Anaphylaxis Verified 09/09/25 00:23 adhesive tape Allergy Unknown Other Verified 09/09/25 00:23 celecoxib (From Celebrex) AdvReac Rash Verified 09/09/25 00:23 Vital Signs Vital Signs - 24 hr 09/08/25 15:20 09/08/25 15:35 09/08/25 15:37 Temperature 97.5 F L Pulse Rate 153 H 163 H 162 H Respiratory Rate 16 20 19 Blood Pressure 98/56 L 98/74 L Pulse Oximetry 99 96 Oxygen Delivery Room Air 09/08/25 15:53 09/08/25 16:20 09/08/25 16:46 Temperature Pulse Rate 151 H 146 H 96 Respiratory Rate 22 H 16 Blood Pressure 122/56 L Pulse Oximetry 100 99 Oxygen Delivery 09/08/25 16:47 09/08/25 17:00 09/08/25 17:01 Temperature Pulse Rate 95 113 H 112 H Respiratory Rate 15 15 16 Blood Pressure 98/59 L Pulse Oximetry 98 97 97 Oxygen Delivery 09/08/25 17:05 09/08/25 17:15 09/08/25 17:16 Temperature Pulse Rate 113 H 112 H 113 H Respiratory Rate 16 19 Blood Pressure 98/59 L 99/57 L Pulse Oximetry 97 98 Oxygen Delivery 09/08/25 17:17 09/08/25 17:27 09/08/25 17:30 Temperature Pulse Rate 113 H 114 H 112 H Respiratory Rate 15 18 Blood Pressure 99/57 L Pulse Oximetry 97 99 Oxygen Delivery 09/08/25 17:31 09/08/25 17:45 09/08/25 17:46 Temperature Pulse Rate 113 H 90 94 Respiratory Rate 17 17 17 Blood Pressure 92/64 L 99/59 L Pulse Oximetry 98 100 99 Oxygen Delivery 09/08/25 17:47 09/08/25 18:26 09/08/25 18:30 Temperature Pulse Rate 92 95 92 Respiratory Rate 15 14 20 Blood Pressure 98/68 L Pulse Oximetry 99 98 98 Oxygen Delivery 09/08/25 18:32 09/08/25 18:45 09/08/25 18:46 Temperature Pulse Rate 92 92 95 Respiratory Rate 17 13 15 Blood Pressure 104/46 L 91/64 L Pulse Oximetry 99 99 97 Oxygen Delivery 09/08/25 18:47 09/08/25 20:00 09/08/25 20:00 Temperature 98.0 F 98.2 F Pulse Rate 96 95 Respiratory Rate 14 17 Blood Pressure 92/73 L 101/56 L Pulse Oximetry 98 99 Oxygen Delivery Room Air 09/08/25 20:27 09/08/25 22:00 09/08/25 22:00 Temperature 98.4 F Pulse Rate 92 92 97 Respiratory Rate 13 Blood Pressure 93/60 L Pulse Oximetry 98 Oxygen Delivery 09/09/25 00:00 09/09/25 00:00 09/09/25 00:00 Temperature 98.2 F Pulse Rate 79 78 Respiratory Rate 20 Blood Pressure 83/60 L Pulse Oximetry 98 Oxygen Delivery Room Air 09/09/25 02:00 09/09/25 02:00 09/09/25 04:00 Temperature 97.5 F L Pulse Rate 81 83 Respiratory Rate 16 Blood Pressure 132/95 H Pulse Oximetry 98 Oxygen Delivery Room Air 09/09/25 04:00 09/09/25 04:00 09/09/25 05:22 Temperature 98.7 F Pulse Rate 74 85 Respiratory Rate 18 Blood Pressure 88/42 L 91/48 L Pulse Oximetry 100 Oxygen Delivery 09/09/25 06:00 09/09/25 07:32 09/09/25 08:26 Temperature 97.9 F Pulse Rate 90 91 Respiratory Rate 18 Blood Pressure 90/51 L Pulse Oximetry 97 95 Oxygen Delivery Room Air 09/09/25 10:19 Temperature Pulse Rate 90 Respiratory Rate Blood Pressure Pulse Oximetry Oxygen Delivery Exam 2 Narrative: General appearance: Well-developed, malnourished Skin: Normal color Head: Normocephalic, nontraumatic Eyes: Clear conjunctiva ENT: Oropharynx normal, ears normal, nose normal Neck: Supple, nontender Chest and respiratory: Airway patent, no respiratory distress, no accessory muscle use Heart: Tachycardia, irregular irregularity Abdomen: Soft, nontender, no organomegaly, quiet bowel sounds Vascular: Normal peripheral pulses, normal capillary refill. Musculoskeletal: Normal range of motion, nontender back Neurologic: Alert and oriented ?3, CONTROL ROOM TECHNICIAN is normal as tested, no gross motor deficit Results Labs 09/09/25 03:49 09/09/25 03:49 Labs: Short CBC 09/08/25 09/09/25 Range/Units 16:17 03:49 WBC 6.9 7.3 (4.5-10.0) K/mm3 Hgb 8.9 L 7.6 L (12.0-15.0) g/dL Hct 26.5 L 24.0 L (37.0-47.0) % Plt Count 239 202 (150-375) k/mm3 [facility] 09/08/25 09/09/25 16:17 03:49 Sodium 137 133 L Potassium 3.2 L 3.2 L Chloride 104 105 Carbon Dioxide 28 27 BUN 11 13 Creatinine 1.18 H 1.20 H Glucose 93 99 Calcium 8.3 L 7.7 L Cardiac Enzymes 09/08/25 09/08/25 09/08/25 Range/Units 16:17 19:11 22:39 Troponin I < 0.012 0.014 0.018 D (0.000-0.034) ng/mL Liver Function 09/08/25 Range/Units 16:17 Total Bilirubin 0.5 (0.2-1.3) mg/dL AST 31 (14-36) U/L ALT 17 (6-35) U/L Alkaline Phosphatase 135 H (38-126) U/L Albumin 3.1 L (3.5-5.1) g/dL Urine 09/09/25 Range/Units 00:15 Urine Color Yellow (Yellow) Urine Appearance Turbid H (Clear) Urine pH 5.5 (5.0-9.0) Ur Specific [place] 1.015 (1.001-1.035) Urine Protein 2+ H (Negative) mg/dL Urine Glucose (UA) Negative (Negative) mg/dL
[2025-09-09] MEDS: cefTRIAXone 1 GM in SODIUM CHLORIDE 0.9% IV 50 ML 100 ML IVPB (12:08)
[2025-09-09] MEDS: MAGNESIUM SULF 4 GM/WATER100ML 4 GM/100 ML BAG IVPB (13:12)
--- NOTE | 2025-09-09 20:57 | PC.NURSE ---
This patient, Karis Kraus, was transferred to [[facility] ] on 09/09/25 at 2057. Personal belongings sent with patient. Report given to [ hugo coronado]. Appropriate documentation sent with patient.
[2025-09-10] VITALS (9 sets, daily range): BP systolic 102–120; BP diastolic 55–82; PULSE 64–92; RESP 16–20; TEMP 35.8–36.8; O2SAT 94–100; BMI 18.6
--- NOTE | 2025-09-10 | ECHO_ITS ---
Patient Info Name: Karis Kraus Age: 70 years : 1955 Gender: Female Ht: 67 in Wt: 108 lbs BSA: 1.51 m2 HR: 66 bpm BP: 102 / 60 mmHg Technical Quality: Good Exam Date: 09/10/2025 1:23 PM Patient Status: I Admit Date: 09/09/2025 Exam Type: CA echo doppler color flow Complete two-dimensional, color flow and Doppler transthoracic echocardiogram is performed. Staff Referring Physician: Elisabeth Carvajal SAFETY EQUIPMENT TESTER Field Seismologist: Danielle Braga Attending Provider: Kahlil Siegel Summary 1. Complete two-dimensional, color flow and Doppler transthoracic echocardiogram is performed. 2. Left ventricular systolic function is normal, estimated at 50-55. 3. The left ventricular diastolic function is grade II diastolic dysfunction. 4. There is mild mitral valve regurgitation. 5. There is mild tricuspid valve regurgitation. 6. Mild pulmonary hypertension, estimated pulmonary arterial systolic pressure is 35 mmHg. 7. There is small pericardial effusion. 8. There is mild aortic valve sclerosis. 9. There is mild to moderate aortic valve stenosis. mean Gradient 11 mm Hg and valve 1.2 cm2. Left Ventricle Left ventricular chamber dimension is normal. Left ventricular systolic function is normal, estimated at 50-55. There is no increased left ventricular wall thickness. Left ventricular septal wall motion is normal. The left ventricular diastolic function is grade II diastolic dysfunction. Right Ventricle Right ventricular chamber dimension is normal. Right ventricular systolic function is normal. Left Atria Left atrial chamber dimension is normal. Right Atria Right atrial chamber dimension is normal. Aortic Valve The aortic valve is probable trileaflet. There is mild aortic valve sclerosis. There is mild to moderate aortic valve stenosis. mean Gradient 11 mm Hg and valve 1.2 cm2. There is no aortic valve regurgitation. Pulmonic Valve The pulmonic valve is normal. There is no pulmonic valve stenosis. There is no pulmonic regurgitation. Mitral Valve The mitral valve has normal leaflets. There is no mitral valve stenosis. There is mild mitral valve regurgitation. Tricuspid Valve The tricuspid valve leaflets are normal. There is no significant tricuspid valve stenosis. There is mild tricuspid valve regurgitation. Mild pulmonary hypertension, estimated pulmonary arterial systolic pressure is 35 mmHg. Pericardium/Pleural The pericardium appears normal. There is small pericardial effusion. Inferior Vena Cava Normal inferior vena cava with >50% collapse upon inspiration consistent with normal right atrial pressure, 5 mmHg. Aorta The aortic root size at the sinus of Valsalva is normal. The prox ascending aorta size is normal. Left Ventricular Outflow Tract Name Value Normal LVOT 2D LVOT Diameter 1.9 cm LVOT Doppler LVOT Peak Velocity 100 cm/s LVOT Peak Gradient 4 mmHg LVOT Mean Gradient 2 mmHg LVOT VTI 21 cm LVOT VTI/AV VTI Ratio 0.4 LVOT Stroke Volume 56 ml LVOT CO 3.9 l/min LVOT CI 2.6 l/min/m2 Pulmonic Valve Name Value Normal RVOT Doppler RVOT Peak Velocity 62 cm/s RVOT Peak Gradient 2 mmHg PV Doppler PV Peak Velocity 168 cm/s PV Peak Gradient 11 mmHg Mitral Valve Name Value Normal MV Doppler MV Peak Gradient 3 mmHg MV Mean Gradient 1 mmHg MV Area (Cont Eq VTI) 2.5 cm2 MV Regurgitation Doppler MR Peak Gradient 28 mmHg MV Diastolic Function MV E Peak Velocity 106 cm/s MV A Peak Velocity 48 cm/s MV E/A 2.2 MV Decel Time (PW) 238 ms MV Annular TDI MV E/e' (Septal) 13.5 MV E/e' (Lateral) 13.4 MV E/e' (Average) 13.5 Tricuspid Valve Name Value Normal TV Regurgitation Doppler TR Peak Velocity 272 cm/s TR Peak Gradient 30 mmHg Estimated PAP/RSVP RA Pressure 5 mmHg <=5 PA Systolic Pressure 35 mmHg <36 RV Systolic Pressure 35 mmHg <36 Aortic Valve Name Value Normal AV Doppler AV Peak Velocity 226 cm/s AV Peak Gradient 20 mmHg AV Mean Gradient 11 mmHg AV VTI 49 cm AV Area (Cont Eq VTI) 1.1 cm2 >=3.0 AV Area (Cont Eq Puma) 1.2 cm2 AV DI (Puma) 0.44 AV Regurgitation 2D LVOT Area 2.7 cm2 Ventricles Name Value Normal LV Dimensions 2D/MM IVS Diastolic Thickness (2D) 0.7 cm 0.6-1.0 LVID Diastole (2D) 4.7 cm 3.8-5.2 LVIW Diastolic Thickness (2D) 0.8 cm 0.6-0.9 LVID Systole (2D) 3.4 cm 2.2-3.5 LVOT Diameter 1.9 cm LV Mass (2D Cubed) 109.83 g 67.00-162.00 LV Mass Index (2D Cubed) 73 g/m2 43-95 Relative Wall Thickness (2D) 0.33 <=0.42 LV Fractional Shortening/Ejection Fraction 2D/MM LV Fractional Shortening (2D) 28 % 27-45 LV EF (2D Teichholz) 54 % LV Diastolic Volume (4C MOD) 63 ml LV EF (4C MOD) 58 % LV Diastolic Volume (2C MOD) 61 ml LV EF (2C MOD) 63 % LV Diastolic Volume (BP MOD) 63 ml 46-106 LV Diastolic Volume Index (BP MOD) 42 ml/m2 29-61 LV Systolic Volume (BP MOD) 24 ml 14-42 LV Systolic Volume Index (BP MOD) 16 ml/m2 8-24 LV EF (BP MOD) 62 % 54-74 LV Diastolic Length (4C) 7.1 cm LV Systolic Length (4C) 6.2 cm LV Stroke Volume (4C MOD) 37 ml Atria Name Value Normal LA Dimensions LA Volume (4C A-L) 37 ml LA Volume (BP A-L) 36 ml RA Dimensions RA Systolic Major [place] Length (4C) 5.0 cm 2.2-2.8 RA Area (4C) 12.5 cm2 <=18.0 Report Signatures
[2025-09-10] MEDS: SODIUM CHLORIDE 0.9% IV 1,000 ML 100 ML IV CONT ×2 (02:02→13:51)
--- NOTE | 2025-09-10 05:46 | PC.NURSE ---
2200> received pt from IMU. vital signs taken and recorded, telemonitor attached, Sinus rhythm noted. Patient is AOx4, on room air.
[2025-09-10 06:05] LABS: Hematocrit 23.6 % (37.0-47.0); Hemoglobin 7.5 g/dL (12.0-15.0); Mean Corpuscular HGB Conc 31.8 g/dl (32-36); Mean Corpuscular Hemoglobin 34.2 pg (26-34); Mean Corpuscular Volume 107.8 fl (80-100); Platelet Count Result 194 k/mm3 (150-375); Red Blood Count 2.19 M/mm3 (4.2-5.4); White Blood Count 5.2 K/mm3 (4.5-10.0)
[2025-09-10 06:21] LABS: Anion Gap 1 mmol/L (4-12); Blood Urea Nitrogen 9 mg/dL (7-17); Calcium 7.7 mg/dL (8.4-10.2); Carbon Dioxide 26 mmol/L (22-30); Chloride 108 mmol/L (98-107); Estimated CRCL calculation 33 ml/min; Estimated Glomerular Filt Rate 43; Glucose 83 mg/dL (65-110); Magnesium 2.3 mg/dL (1.6-2.3); Potassium 4.1 mmol/L (3.4-5.0); Sodium 135 mmol/L (137-145)
[2025-09-10] MEDS: FERROUS SULFATE 325 MG TABLET BY MOUTH (08:56)
[2025-09-10] MEDS: SIMETHICONE 80 MG TAB.CHEW PO ×4 (08:56→21:32)
[2025-09-10] MEDS: POTASSIUM CHLORIDE 20 MEQ ER TABLET PO ×2 (08:56→16:13)
[2025-09-10] MEDS: METOPROLOL SUCCINATE EXT REL 25 MG TABCR PO (08:56)
[2025-09-10] MEDS: PANTOPRAZOLE 40 MG TABLET PO (08:57)
[2025-09-10] MEDS: FAMOTIDINE 20 MG TABLET PO ×2 (08:57→16:13)
[2025-09-10] MEDS: GABAPENTIN 300 MG CAPSULE 600 MG PO ×2 (08:57→21:31)
[2025-09-10] MEDS: ENOXAPARIN 40 MG/0.4 ML SYRINGE SUB-Q (09:59)
[2025-09-10] MEDS: cefTRIAXone 1 GM in SODIUM CHLORIDE 0.9% IV 50 ML 100 ML IVPB (10:02)
--- NOTE | 2025-09-10 14:06 | WPDGIPROGNO ---
Progress Note: A&P Assessment and Plan (1) Anemia: Code(s): D64.9 - Anemia, unspecified Status: Acute (2) Protein calorie malnutrition: Code(s): E46 - Unspecified protein-calorie malnutrition Status: Acute (3) Malignant cachexia: Code(s): R64 - Cachexia Status: Acute Plan Height 70-year-old female with history of foot ovarian cancer. Patient had a cam or additional therapy. Her hemoglobin level today is 7.9) stable. She has no good. No abdominal pain. Will see the patient as needed. Time Spent With Patient Time with patient: less than 15 minutes Subjective Date/time seen: 09/10/25 14:06 Interval history: Patient feels better. Hemoglobin levels stable at the 7.9. Good get better with the medication. No abdominal pain. No constipation. No active bleeding. Review of Systems Review of Systems: All systems reviewed & are unremarkable except as noted in HPI and below Exam Narrative: General appearance: Well-developed, malnourished Skin: Normal color Head: Normocephalic, nontraumatic Eyes: Clear conjunctiva ENT: Oropharynx normal, ears normal, nose normal Neck: Supple, nontender Chest and respiratory: Airway patent, no respiratory distress, no accessory muscle use Heart: Tachycardia, irregular irregularity Abdomen: Soft, nontender, no organomegaly, quiet bowel sounds Vascular: Normal peripheral pulses, normal capillary refill. Musculoskeletal: Normal range of motion, nontender back Neurologic: Alert and oriented ?3, PUBLIC RELATIONS SALES MARKETING is normal as tested, no gross motor deficit Objective Data Vital Signs Vital Signs: Vital Signs - 24 hr 09/09/25 16:00 09/09/25 16:11 09/09/25 20:00 Temperature Pulse Rate 81 87 84 Respiratory Rate 18 18 Blood Pressure 130/97 H Pulse Oximetry 95 95 Oxygen Delivery Room Air 09/09/25 20:00 09/09/25 21:59 09/10/25 00:00 Temperature 97.4 F L 97.5 F L Pulse Rate 84 73 73 Respiratory Rate 20 18 Blood Pressure 102/62 102/60 Pulse Oximetry 97 94 Oxygen Delivery 09/10/25 00:00 09/10/25 04:00 09/10/25 06:53 Temperature 97.4 F L Pulse Rate 72 66 69 Respiratory Rate 20 Blood Pressure 107/55 L Pulse Oximetry 100 Oxygen Delivery 09/10/25 08:00 09/10/25 08:00 09/10/25 08:00 Temperature 97.8 F Pulse Rate 73 64 Respiratory Rate 18 Blood Pressure 113/58 L Pulse Oximetry 100 Oxygen Delivery Room Air 09/10/25 08:56 Temperature Pulse Rate 82 Respiratory Rate Blood Pressure Pulse Oximetry Oxygen Delivery Intake/Output Intake/Output: Intake & Output 09/07/25 09/08/25 09/09/25 09/10/25 23:59 23:59 23:59 23:59 Intake Total 6.6 2570 2580 Output Total 50 500 Balance -43.4 2070 2580 Meds/Results Medications: Active Medications Generic Name Dose Route Start Last Admin Trade Name Freq PRN Reason Stop Dose Admin Acetaminophen 650 mg 09/08/25 18:47 Acetaminophen 325 Mg Tablet PO Q4H PRN Mild Pain (1-3) or Fever Enoxaparin Sodium 40 mg 09/09/25 10:45 09/10/25 09:59 Enoxaparin 40 Mg/0.4 Ml Syringe SUB-Q 40 mg DAILY DEANA Administration Famotidine 20 mg 09/09/25 09:00 09/10/25 08:57 Famotidine 20 Mg Tablet PO 20 mg BID DEANA Administration Ferrous Sulfate 325 mg 09/09/25 09:00 09/10/25 08:56 Ferrous Sulfate 325 Mg Tablet BY MOUTH 325 mg DAILY DEANA Administration Fluoxetine HCl 40 mg 09/09/25 09:00 09/10/25 08:56 Fluoxetine Hcl 20 Mg Capsule PO 40 mg DAILY DEANA Administration Fluticasone Propionate 1 spray 09/09/25 00:16 Fluticasone Propionate 0.05% Na Spr 16 Gm Btl (*Bkc) NASAL Q12HR PRN rhinitis Gabapentin 600 mg 09/09/25 00:20 09/10/25 08:57 Gabapentin 300 Mg Capsule PO 600 mg Q12HR DEANA Administration Guaifenesin 600 mg 09/09/25 10:46 Guaifenesin 12 Hr 600 Mg Tabcr PO Q12HR PRN cough and congestion Sodium Chloride 1,000 mls @ 100 mls/hr 09/09/25 00:25 09/10/25 13:51 Normal Saline Iv IV CONT 100 mls/hr .Q10H DEANA Administration Ceftriaxone Sodium 1 gm/ 50 mls @ 100 mls/hr 09/09/25 11:00 09/10/25 10:02 Sodium Chloride IVPB 100 mls/hr Q24H DEANA Administration Lidocaine/Prilocaine 1 each 09/09/25 00:16 Lidocaine/Prilocaine Cream 2.5-2.5% Tube TOPICAL PRN PRN Pain Lorazepam 0.5 mg 09/09/25 00:16 Lorazepam (*Crx) 0.5 Mg Tablet PO Q6H PRN Nausea And Vomiting Metoprolol Succinate 25 mg 09/09/25 10:10 09/10/25 08:56 Metoprolol Succinate Ext Rel 25 Mg Tabcr PO 25 mg QAM DEANA Administration Pantoprazole Sodium 40 mg 09/09/25 09:00 09/10/25 08:57 Pantoprazole 40 Mg Tablet PO 40 mg DAILY DEANA Administration Perflutren Lipid Microsphere 0 ml 09/09/25 00:43 Perflutren Lipid Microspheres 1.5 Ml Vial Diluted To 10 Ml Total Volume IV PUSH 09/12/25 00:43 ONCE PRN adequate visualization Protocol Potassium Chloride 20 meq 09/09/25 08:00 09/10/25 08:56 Potassium Chloride 20 Meq Er Tablet PO 20 meq BIDWM DEANA Administration Simethicone 80 mg 09/09/25 09:00 09/10/25 13:51 Simethicone 80 Mg Tab.Chew PO 80 mg QID DEANA Administration Radiology Results: ITS Impressions Chest X-Ray 09/08/25 18:48 IMPRESSION: 1. No acute findings. Emphysematous lungs. Postoperative changes of right breast. Chest CTA 09/09/25 16:00 IMPRESSION: 1. No CT angiographic evidence of pulmonary emboli. Labs Labs: Laboratory Results - last 24 hr 09/10/25 05:07 WBC 5.2 RBC 2.19 L Hgb 7.5 L Hct 23.6 L MCV 107.8 H MCH 34.2 H MCHC 31.8 L RDW 14.2 Plt Count 194 MPV 10.3 Sodium 135 L Potassium 4.1 Chloride 108 H Carbon Dioxide 26 Anion Gap 1 L BUN 9 Creatinine 1.24 H Estim Creat Clear Calc 33 Estimated GFR 43 L Glucose 83 Calcium 7.7 L Magnesium 2.3
--- NOTE | 2025-09-10 16:28 | PM.IMPN2 ---
Assessment and Plan Assessment and Plan (1) Hypokalemia: Code(s): E87.6 - Hypokalemia Status: Acute (2) Tremor: Code(s): R25.1 - Tremor, unspecified Status: Acute (3) Anemia: Code(s): D64.9 - Anemia, unspecified Status: Acute (4) Ovarian cancer: Code(s): C56.9 - Malignant neoplasm of unspecified ovary Status: Acute (5) UTI (urinary tract infection): Code(s): N39.0 - Urinary tract infection, site not specified Status: Acute (6) SVT (supraventricular tachycardia): Code(s): I47.10 - Supraventricular tachycardia, unspecified Status: Acute Plan A pleasant 70-year-old female patient who has a history of metastatic ovarian cancer currently on radiation. The patient was seen at the [facility] and then sent to the ER. The patient felt short of breath and shaky, runny nose, occasional cough with clear phlegm production. The patient denies any fever or chills. The patient stated that she is no longer receiving chemotherapy and she is on break from radiation. She stated that after the of the year she has decided to go through with radiation. Her last PET scan on August 27 showed spread of the cancer and the patient is aware. Her H&H is 8.9 and 26.5 which is improved from her baseline. Her potassium was found to be 3.2 in was supplemented in the emergency room. Her BUN is normal creatinine slightly elevated at 1.18. Her GFR is 45 which has improved from the last value of 40 on 08/15/2025. Calcium is low at 8.3. Troponins were negative. BNP 3080. She stated that she has diarrhea and her C diff was negative. The patient was negative for influenza a, influenza B, and COVID. Chest x-ray was read as no acute findings. Emphysematous lungs. Postoperative changes of right breast. EKG was atrial flutter/tachycardia with rapid ventricular rate. Repeat EKG shows her heart rate in the 90s with a sinus rhythm with occasional PVCs. The patient had been started on a Cardizem drip. The patient was also given lorazepam Tylenol and potassium in the emergency room. Admitted on 09/08/2025. ----- Currently normal sinus rhythm. Appreciate Cardiology recommendations. Metoprolol started. Diltiazem GTT discontinued. Will not receive anticoagulation due to significant anemia. Continue telemetry. Magnesium 0.9. On 09/09 Giving 4 g rider. Also potassium low at 3.2. Has been scheduled for KCl 20 mEq b.i.d., give additional 20 KCl now p.o.. Serum creatinine stable, continue to monitor. Blood pressure borderline low, patient appears dehydrated. Continue normal saline at 100 cc/hour. Discontinue Mobic. 09/10/2025: Discontinue fluids, normal sinus rhythm. Continue metoprolol. Awaiting urine culture. No further recommendations from GI. Quad viral screen negative. Likely a viral URI unrelated to COVID/flu/RSV. Guaifenesin p.r.n.. Abnormal urinalysis, indicative of infection. Start ceftriaxone 1 g q.day on 09/09/2025. Follow urine culture and blood culture. Continue Protonix, famotidine, simethicone GI consulted. ----- Lovenox 40 mg subQ q.day for DVT prophylaxis. Continue [employer] PPI, H2 marilyn. Patient wishes to be full code. Ambulate with assistance, fall precautions. Expected length of stay 2-4 days Transfer to medical floor with telemetry. Subjective Date/time seen: 09/10/25 16:28 Interval history: Reports aching left side of abdomen has improved. No shortness of breath. No chest pain. Review of Systems Review of Systems: All systems reviewed & are unremarkable except as noted in HPI and below (Subjective) Exam Const: General: comfortable and no acute distress HENMT: Mouth: Yes moist mucous membranes Eyes: Pupils: Equal, round and reactive pupils present Neck: Neck: supple Resp: Effort & Inspection: normal respiratory effort Auscultation: clear to auscultation bilaterally Cardio: Rate: regular rate Rhythm: regular rhythm GI: Inspection: non-distended GI Palp: Yes Soft to palpation Neuro: Motor exam (neuro): 5/5 motor strength present throughout Extrem: General: no edema Other: Resting tremor Objective Data Vital Signs Vital Signs: Vital Signs - 24 hr 09/09/25 20:00 09/09/25 20:00 09/09/25 21:59 Temperature 97.4 F L Pulse Rate 84 84 73 Respiratory Rate 18 20 Blood Pressure 102/62 Pulse Oximetry 95 97 Oxygen Delivery Room Air 09/10/25 00:00 09/10/25 00:00 09/10/25 04:00 Temperature 97.5 F L Pulse Rate 73 72 66 Respiratory Rate 18 Blood Pressure 102/60 Pulse Oximetry 94 Oxygen Delivery 09/10/25 06:53 09/10/25 08:00 09/10/25 08:00 Temperature 97.4 F L 97.8 F Pulse Rate 69 73 Respiratory Rate 20 18 Blood Pressure 107/55 L 113/58 L Pulse Oximetry 100 100 Oxygen Delivery Room Air 09/10/25 08:00 09/10/25 08:56 09/10/25 12:00 Temperature Pulse Rate 64 82 71 Respiratory Rate Blood Pressure Pulse Oximetry Oxygen Delivery 09/10/25 16:00 Temperature Pulse Rate 72 Respiratory Rate Blood Pressure Pulse Oximetry Oxygen Delivery Intake/Output Intake/Output: Intake & Output 09/07/25 09/08/25 09/09/25 09/10/25 23:59 23:59 23:59 23:59 Intake Total 6.6 2570 2580 Output Total 50 500 Balance -43.4 2070 2580 Meds/Results Medications: Active Medications Generic Name Dose Route Start Last Admin Trade Name Freq PRN Reason Stop Dose Admin Acetaminophen 650 mg 09/08/25 18:47 Acetaminophen 325 Mg Tablet PO Q4H PRN Mild Pain (1-3) or Fever Enoxaparin Sodium 40 mg 09/09/25 10:45 09/10/25 09:59 Enoxaparin 40 Mg/0.4 Ml Syringe SUB-Q 40 mg DAILY DEANA Administration Famotidine 20 mg 09/09/25 09:00 09/10/25 16:13 Famotidine 20 Mg Tablet PO 20 mg BID DEANA Administration Ferrous Sulfate 325 mg 09/09/25 09:00 09/10/25 08:56 Ferrous Sulfate 325 Mg Tablet BY MOUTH 325 mg DAILY DEANA Administration Fluoxetine HCl 40 mg 09/09/25 09:00 09/10/25 08:56 Fluoxetine Hcl 20 Mg Capsule PO 40 mg DAILY DEANA Administration Fluticasone Propionate 1 spray 09/09/25 00:16 Fluticasone Propionate 0.05% Na Spr 16 Gm Btl (*Bkc) NASAL Q12HR PRN rhinitis Gabapentin 600 mg 09/09/25 00:20 09/10/25 08:57 Gabapentin 300 Mg Capsule PO 600 mg Q12HR DEANA Administration Guaifenesin 600 mg 09/09/25 10:46 Guaifenesin 12 Hr 600 Mg Tabcr PO Q12HR PRN cough and congestion Sodium Chloride 1,000 mls @ 100 mls/hr 09/09/25 00:25 09/10/25 13:51 Normal Saline Iv IV CONT 100 mls/hr .Q10H DEANA Administration Ceftriaxone Sodium 1 gm/ 50 mls @ 100 mls/hr 09/09/25 11:00 09/10/25 10:02 Sodium Chloride IVPB 100 mls/hr Q24H DEANA Administration Lidocaine/Prilocaine 1 each 09/09/25 00:16 Lidocaine/Prilocaine Cream 2.5-2.5% Tube TOPICAL PRN PRN Pain Lorazepam 0.5 mg 09/09/25 00:16 Lorazepam (*Crx) 0.5 Mg Tablet PO Q6H PRN Nausea And Vomiting Metoprolol Succinate 25 mg 09/09/25 10:10 09/10/25 08:56 Metoprolol Succinate Ext Rel 25 Mg Tabcr PO 25 mg QAM DEANA Administration Pantoprazole Sodium 40 mg 09/09/25 09:00 09/10/25 08:57 Pantoprazole 40 Mg Tablet PO 40 mg DAILY DEANA Administration Perflutren Lipid Microsphere 0 ml 09/09/25 00:43 Perflutren Lipid Microspheres 1.5 Ml Vial Diluted To 10 Ml Total Volume IV PUSH 09/12/25 00:43 ONCE PRN adequate visualization Protocol Potassium Chloride 20 meq 09/09/25 08:00 09/10/25 16:13 Potassium Chloride 20 Meq Er Tablet PO 20 meq BIDWM DEANA Administration Simethicone 80 mg 09/09/25 09:00 09/10/25 16:13 Simethicone 80 Mg Tab.Chew PO 80 mg QID DEANA Administration Radiology Results: ITS Impressions Chest X-Ray 09/08/25 18:48 IMPRESSION: 1. No acute findings. Emphysematous lungs. Postoperative changes of right breast. Chest CTA 09/09/25 16:00 IMPRESSION: 1. No CT angiographic evidence of pulmonary emboli. Labs Labs: Laboratory Results - last 24 hr 09/10/25 05:07 WBC 5.2 RBC 2.19 L Hgb 7.5 L Hct 23.6 L MCV 107.8 H MCH 34.2 H MCHC 31.8 L RDW 14.2 Plt Count 194 MPV 10.3 Sodium 135 L Potassium 4.1 Chloride 108 H Carbon Dioxide 26 Anion Gap 1 L BUN 9 Creatinine 1.24 H Estim Creat Clear Calc 33 Estimated GFR 43 L Glucose 83 Calcium 7.7 L Magnesium 2.3
[2025-09-11] VITALS: PULSE 67
[2025-09-11 04:00] VITALS: PULSE 68
[2025-09-11 04:55] VITALS: BP 127/63; PULSE 73; RESP 16; TEMP 36.1; O2SAT 99
[2025-09-11 06:42] LABS: Hematocrit 24.7 % (37.0-47.0); Hemoglobin 7.8 g/dL (12.0-15.0); Mean Corpuscular HGB Conc 31.6 g/dl (32-36); Mean Corpuscular Hemoglobin 33.8 pg (26-34); Mean Corpuscular Volume 106.9 fl (80-100); Platelet Count Result 193 k/mm3 (150-375); Red Blood Count 2.31 M/mm3 (4.2-5.4); White Blood Count 7.5 K/mm3 (4.5-10.0)
[2025-09-11 06:56] LABS: Anion Gap 2 mmol/L (4-12); Blood Urea Nitrogen 8 mg/dL (7-17); Calcium 8.5 mg/dL (8.4-10.2); Carbon Dioxide 23 mmol/L (22-30); Chloride 110 mmol/L (98-107); Estimated CRCL calculation 33 ml/min; Estimated Glomerular Filt Rate 44; Glucose 82 mg/dL (65-110); Magnesium 1.6 mg/dL (1.6-2.3); Potassium 4.1 mmol/L (3.4-5.0); Sodium 135 mmol/L (137-145)
[2025-09-11 08:00] VITALS: PULSE 70
[2025-09-11] MEDS: POTASSIUM CHLORIDE 20 MEQ ER TABLET PO (09:04)
[2025-09-11] MEDS: FERROUS SULFATE 325 MG TABLET BY MOUTH (09:04)
[2025-09-11] MEDS: GABAPENTIN 300 MG CAPSULE 600 MG PO (09:04)
[2025-09-11 09:05] VITALS: PULSE 81
[2025-09-11] MEDS: METOPROLOL SUCCINATE EXT REL 25 MG TABCR PO (09:05)
[2025-09-11] MEDS: SIMETHICONE 80 MG TAB.CHEW PO (09:05)
[2025-09-11] MEDS: FAMOTIDINE 20 MG TABLET PO (09:05)
[2025-09-11] MEDS: ENOXAPARIN 40 MG/0.4 ML SYRINGE SUB-Q (09:06)
[2025-09-11] MEDS: PANTOPRAZOLE 40 MG TABLET PO (09:06)
[2025-09-11] MEDS: cefTRIAXone 1 GM in SODIUM CHLORIDE 0.9% IV 50 ML 100 ML IVPB (10:59)
--- NOTE | 2025-09-11 11:09 | P.CDI_ITS ---
<Statement entered by Claudette Bray MD - 09/13/25 09:00> This documentation has been reviewed and approved. moderate CDI Query Clarification Request BMI: 18.6 Nutritional Diagnostic Statement: Please refer to the comprehensive nutrition assessment for further information. If you agree with diagnosis of Moderate protein calorie malnutrition related to inadequate energy intake with increased energy needs as evidenced by pt report of reduced appetite and intake for greater than 1 month, significant weight loss of -27% x 1 year, -15% x 6 months, and NFPE findings for moderate subcutaneous fat loss and moderate muscle wasting. Please specify severity if known: * Mild * Moderate * Severe * Other/Unknown
--- NOTE | 2025-09-11 11:37 | PM.DS ---
DS: Admitting Diagnosis Discharge Date 09/11/2025 Admitting Diagnosis SVT DS: Discharge Diagnosis Discharge Diagnosis (1) SVT (supraventricular tachycardia): Code(s): I47.10 - Supraventricular tachycardia, unspecified Status: Acute DS: Summary Hospital Course Hospital Course: Presents with shortness of breath, cough. Diagnosed with atypical atrial flutter with two-to-one conduction. Asymptomatic. On metoprolol, rate controlled. She is feeling back to her baseline. Discharged in stable condition to home on 09/11/2025. Will take Augmentin for another 2 days to complete 5 day course. Patient was full code during the admission. Status at Discharge Overall status at discharge: patient is back to baseline Time Spent with Patient Time attestation: Total time spent providing and/or coordinating discharge services: Time spent: Greater than 30 minutes Exam Const: General: comfortable and no acute distress HENMT: Mouth: Yes moist mucous membranes Eyes: Pupils: Equal, round and reactive pupils present Neck: Neck: supple Resp: Effort & Inspection: normal respiratory effort Auscultation: clear to auscultation bilaterally Cardio: Rate: regular rate Rhythm: regular rhythm GI: Inspection: non-distended GI Palp: Yes Soft to palpation Neuro: Motor exam (neuro): 5/5 motor strength present throughout Extrem: General: no edema Other: Resting tremor DS: Data Data Completed and Pending Labs on day of discharge: Labs from last 24 hours 09/11/25 06:11 WBC 7.5 RBC 2.31 L Hgb 7.8 L Hct 24.7 L MCV 106.9 H MCH 33.8 MCHC 31.6 L RDW 14.3 Plt Count 193 MPV 10.1 Sodium 135 L Potassium 4.1 Chloride 110 H Carbon Dioxide 23 Anion Gap 2 L BUN 8 Creatinine 1.21 H Estim Creat Clear Calc 33 Estimated GFR 44 L Glucose 82 Calcium 8.5 Magnesium 1.6 Discharge Plan Discharge Attending physician on discharge: Claudette Bray Consulting providers: Glenny Osorio Michael J. Discharging Clinician: Claudette Bray Patient Disposition: Home Activity: may shower Diet: as tolerated Patient Instructions: Antibiotic Form, Diltiazem (By injection), A-fib (Atrial Fibrillation) (DC) Patient Language: Bruneian Stand Alone Forms: General Discharge Information Follow-up/Referrals: Radha,Ceci Goddard, FINANCIAL SALES ADVISOR [Primary Care Provider, Family Practice] Lv Hill MD [Physician, Cardiology] Discharge Medications: New amoxicillin-pot clavulanate 875-125 mg tablet 1 tablet PO Q12H Qty: 4 0RF metoprolol succinate [Toprol XL] 25 mg Tablet Extended Release 24 Hr 25 mg PO QAM Qty: 30 0RF Continued potassium chloride [Klor-Con M20] 20 mEq tablet,ER particles/crystals 20 meq PO BID gabapentin 600 mg tablet 600 mg PO Q12H ondansetron HCl 8 mg tablet 8 mg PO Q8H PRN (Reason: nausea and vomiting) esomeprazole magnesium 40 mg capsule,delayed release(DR/EC) 40 mg PO Q24H pyridoxine (vitamin B6) 100 mg tablet 100 mg PO DAILY loratadine 10 mg tablet 10 mg PO Q24H PRN (Reason: allergy symptoms) simethicone 125 mg capsule 125 mg PO DAILY PRN (Reason: gas) Qty: 20 0RF fluoxetine 40 mg capsule 40 mg PO DAILY pantoprazole 40 mg tablet,delayed release (DR/EC) 40 mg PO DAILY famotidine 20 mg tablet 20 mg PO BID ferrous sulfate [Feosol] 325 mg (65 mg iron) tablet 325 mg PO DAILY fluticasone propionate 50 mcg/actuation spray,suspension 1 spray INTRANASAL PRN PRN (Reason: rhinitis) lidocaine-prilocaine 2.5-2.5 % cream 1 applic topical PRN PRN (Reason: pain) Rx Instructions: Apply 1 hour prior to IV access and cover. lorazepam [Ativan] 0.5 mg tablet 0.5 mg PO Q6H PRN (Reason: nausea and vomiting) Discontinued meloxicam 7.5 mg tablet 7.5 mg PO DAILY Date of admission: 09/09/25 13:34 Primary Care Provider: Leatha,Ceci Goddard Admitting Provider: Kahlil Siegel Attending physician on admission: Kahlil Siegel Condition: Improved Hospitalist MIPS Heart Failure (Exclusion) Patient has history of Heart Transplant or Left Ventricular Assistive Device?: No IF YES, STOP HERE Heart Failure (Qualifier) Patient has current or prior documentation of LVEF less than or equal to 40%, or mod/servere depressed LVSF?: No IF NO, STOP HERE
[2025-09-11 12:00] VITALS: PULSE 72
--- NOTE | 2025-09-11 12:31 | PM.PNCARD ---
Progress Note: A&P Assessment and Plan (1) SVT (supraventricular tachycardia): Code(s): I47.10 - Supraventricular tachycardia, unspecified Status: Acute Plan - Paroxysmal Atrial flutter - Metastatic ovarian cancer - Anemia - In regards to paroxysmal atrial flutter, she presented to the hospital with chills, cough, rhinorrhea and was found to be in atrial flutter and converted to sinus rhythm after diltiazem. Given her anemia anticoagulation will not be started. Continue metoprolol. Echocardiogram normal ejection fraction. Mild to moderate aortic stenosis, small pericardial effusion. In regards to metastatic ovarian cancer management per Oncology. In regards to anemia stable Subjective Date/time seen: 09/11/25 12:31 Interval history: Reports aching left side of abdomen has improved. No shortness of breath. No chest pain. Date of service 09/11/2025-resting comfortably in bed. No complaints. She is in room. On exam her heart is regular Review of Systems Constitutional: Constitutional: Reports lethargy Eyes: Eyes: Reports no additional eye complaints ENT: Reports system reviewed and no additional complaints, except as documented Cardiovascular: Cardiovascular: Reports no additional cardiovascular complaints Respiratory: Respiratory: Reports no additional respiratory complaints Gastrointestinal: Gastrointestinal: Reports no additional gastrointestinal complaints Musculoskeletal: Musculoskeletal: Reports no additional musculoskeletal complaints Integumentary/Breasts: Skin/Breast: Reports system reviewed and no additional complaints, except as docu Neurologic: Reports system reviewed and no additional complaints, except as documented Endocrine: Endocrine: Reports no additional endocrine complaints Hematologic/Lymphatic: Hematologic/Lymphatic: Reports no additional hematologic/lymphatic complaints Allergic/Immunologic: Allergic/Immunologic: Reports no additional allergic/immunologic complaints Exam Const: General: comfortable and no acute distress HENMT: Mouth: Yes moist mucous membranes Eyes: Sclera: sclerae normal Neck: Neck: supple and no JVD Resp: Effort & Inspection: normal respiratory effort Auscultation: clear to auscultation bilaterally Cardio: Rate: regular rate Rhythm: regular rhythm Other: Very soft systolic murmur there which does not radiate from the left sternal border. No diastolic murmur no rub GI: Auscultation: normal bowel sounds Skin: General skin exam: normal color Neuro: Other: Alert and oriented x3 Extrem: General: normal to inspection Objective Data Vital Signs Vital Signs: Vital Signs - 24 hr 09/10/25 16:00 09/10/25 16:00 09/10/25 20:00 Temperature 36.8 C Pulse Rate 72 76 92 Respiratory Rate 18 Blood Pressure 119/65 Pulse Oximetry 97 09/10/25 20:08 09/11/25 00:00 09/11/25 04:00 Temperature 35.8 C L Pulse Rate 71 67 68 Respiratory Rate 16 Blood Pressure 120/82 Pulse Oximetry 98 09/11/25 04:55 09/11/25 08:00 09/11/25 09:05 Temperature 36.1 C L Pulse Rate 73 70 81 Respiratory Rate 16 Blood Pressure 127/63 Pulse Oximetry 99 Intake/Output Intake/Output: Intake & Output 09/08/25 09/09/25 09/10/25 09/11/25 23:59 23:59 23:59 23:59 Intake Total 6.6 2570 2870 240 Output Total 50 500 Balance -43.4 2070 2870 240 Meds/Results Medications: Active Medications Generic Name Dose Route Start Last Admin Trade Name Freq PRN Reason Stop Dose Admin Acetaminophen 650 mg 09/08/25 18:47 Acetaminophen 325 Mg Tablet PO Q4H PRN Mild Pain (1-3) or Fever Enoxaparin Sodium 40 mg 09/09/25 10:45 09/11/25 09:06 Enoxaparin 40 Mg/0.4 Ml Syringe SUB-Q 40 mg DAILY DEANA Administration Famotidine 20 mg 09/09/25 09:00 09/11/25 09:05 Famotidine 20 Mg Tablet PO 20 mg BID DEANA Administration Ferrous Sulfate 325 mg 09/09/25 09:00 09/11/25 09:04 Ferrous Sulfate 325 Mg Tablet BY MOUTH 325 mg DAILY DEANA Administration Fluoxetine HCl 40 mg 09/09/25 09:00 09/11/25 09:05 Fluoxetine Hcl 20 Mg Capsule PO 40 mg DAILY DEANA Administration Fluticasone Propionate 1 spray 09/09/25 00:16 Fluticasone Propionate 0.05% Na Spr 16 Gm Btl (*Bkc) NASAL Q12HR PRN rhinitis Gabapentin 600 mg 09/09/25 00:20 09/11/25 09:04 Gabapentin 300 Mg Capsule PO 600 mg Q12HR DEANA Administration Guaifenesin 600 mg 09/09/25 10:46 Guaifenesin 12 Hr 600 Mg Tabcr PO Q12HR PRN cough and congestion Ceftriaxone Sodium 1 gm/ 50 mls @ 100 mls/hr 09/09/25 11:00 09/11/25 10:59 Sodium Chloride IVPB 100 mls/hr Q24H DEANA Administration Lidocaine/Prilocaine 1 each 09/09/25 00:16 Lidocaine/Prilocaine Cream 2.5-2.5% Tube TOPICAL PRN PRN Pain Lorazepam 0.5 mg 09/09/25 00:16 Lorazepam (*Crx) 0.5 Mg Tablet PO Q6H PRN Nausea And Vomiting Metoprolol Succinate 25 mg 09/09/25 10:10 09/11/25 09:05 Metoprolol Succinate Ext Rel 25 Mg Tabcr PO 25 mg QAM DEANA Administration Pantoprazole Sodium 40 mg 09/09/25 09:00 09/11/25 09:06 Pantoprazole 40 Mg Tablet PO 40 mg DAILY DEANA Administration Perflutren Lipid Microsphere 0 ml 09/09/25 00:43 Perflutren Lipid Microspheres 1.5 Ml Vial Diluted To 10 Ml Total Volume IV PUSH 09/12/25 00:43 ONCE PRN adequate visualization Protocol Potassium Chloride 20 meq 09/09/25 08:00 09/11/25 09:04 Potassium Chloride 20 Meq Er Tablet PO 20 meq BIDWM DEANA Administration Simethicone 80 mg 09/09/25 09:00 09/11/25 09:05 Simethicone 80 Mg Tab.Chew PO 80 mg QID DEANA Administration Radiology Results: ITS Impressions Chest X-Ray 09/08/25 18:48 IMPRESSION: 1. No acute findings. Emphysematous lungs. Postoperative changes of right breast. Chest CTA 09/09/25 16:00 IMPRESSION: 1. No CT angiographic evidence of pulmonary emboli. Labs Labs: Laboratory Results - last 24 hr 09/11/25 06:11 WBC 7.5 RBC 2.31 L Hgb 7.8 L Hct 24.7 L MCV 106.9 H MCH 33.8 MCHC 31.6 L RDW 14.3 Plt Count 193 MPV 10.1 Sodium 135 L Potassium 4.1 Chloride 110 H Carbon Dioxide 23 Anion Gap 2 L BUN 8 Creatinine 1.21 H Estim Creat Clear Calc 33 Estimated GFR 44 L Glucose 82 Calcium 8.5 Magnesium 1.6
== END 2025-09-11 13:17 | disposition home or self-care (01) | DRG 309 ==
LOC: ANHED 17:58 → ANHIMU 19:21 → ANH3MEDSUR 09-11 11:22 → ANHIMU 09-12 11:18
PROVIDERS: Nurse Practitioner; Admitting Provider Internal Medicine; Emergency Provider Emergency Medicine; PCP Nurse Practitioner Family; Visit Provider General Practice
DX: I48.92 Unspecified atrial flutter (principal); C78.6 Secondary malignant neoplasm of retroperitoneum and peritoneum; C79.60 Secondary malignant neoplasm of unspecified ovary; G21.19 Other drug induced secondary parkinsonism; Z68.1 Body mass index [BMI] 19.9 or less, adult; I31.39 Other pericardial effusion (noninflammatory); N39.0 Urinary tract infection, site not specified; E44.0 Moderate protein-calorie malnutrition; I47.10 Supraventricular tachycardia, unspecified; T45.1X5A Adverse effect of antineoplastic and immunosuppressive drugs, initial encounter; G62.0 Drug-induced polyneuropathy; D63.0 Anemia in neoplastic disease; K21.9 Gastro-esophageal reflux disease without esophagitis; G25.0 Essential tremor; E86.0 Dehydration; E87.6 Hypokalemia; F32.A Depression, unspecified; F41.9 Anxiety disorder, unspecified; J34.89 Other specified disorders of nose and nasal sinuses; N18.30 Chronic kidney disease, stage 3 unspecified; I35.0 Nonrheumatic aortic (valve) stenosis; Z20.822 Contact with and (suspected) exposure to COVID-19; K58.9 Irritable bowel syndrome, unspecified; Z96.652 Presence of left artificial knee joint; Z92.21 Personal history of antineoplastic chemotherapy; Z92.3 Personal history of irradiation; Z90.710 Acquired absence of both cervix and uterus; Z90.11 Acquired absence of right breast and nipple; Z85.3 Personal history of malignant neoplasm of breast; Z90.49 Acquired absence of other specified parts of digestive tract; Z79.891 Long term (current) use of opiate analgesic; Z87.891 Personal history of nicotine dependence
CPT/HCPCS: 36415; 71045; 71275; 80048; 80053; 81001; 83735; 83880; 84484; 85025; 85027; 85610; 85730; 87040; 87045; 87046; 87086; 87186; 87427; 87493; 93005; 93306; 96365; 99285; A9270; G0378; J0696; J1163; J1650; J3475; J7030; Q9967